=== PATIENT | female | born 1955 | race Caucasian/White ===

== ENCOUNTER 2019-08-08 19:27 | Emergency (ER) | payer MEDICARE, SELFPAY ==
--- NOTE | 2019-08-08 19:53 | PC.NURSE ---
EKG done at 1943 and shown to ER doctor
--- NOTE | 2019-08-08 19:59 | XRR_ITS ---
PROCEDURE INFORMATION: Exam: XR Chest, 1 View Exam date and time: 08/08/2019 8:12 PM Age: 63 years old Clinical indication: Patient HX: PT C/O chest pain today TECHNIQUE: Imaging protocol: XR of the chest Views: 1 view. COMPARISON: CR Chest 1 [place] [id number] 10/27/2018 5:32 PM FINDINGS: Lungs: Unremarkable. No consolidation. Probable fibrosis. Scattered unchanged calcified granulomas. Pleural space: Unremarkable. No pleural effusion. No pneumothorax. Heart/Mediastinum: Mild cardiomegaly. Bones/joints: No acute abnormality. Old right rib fractures are noted. Postoperative changes in the cervical spine are noted. XR/XR chest 1V portable [id number] IMPRESSION: No acute findings. Normal in
[2019-08-08 20:00] VITALS: BP 141/85; PULSE 73; RESP 22; TEMP 37.1; O2SAT 96; BMI 33.9
--- NOTE | 2019-08-08 20:00 | ECG_ITS ---
Measurements Intervals [place] Rate: 76 P: 59 SD: 174 QRS: 77 QRSD: 90 T: 52 QT: 353 QTc: 397 SINUS RHYTHM Compared to ECG 01/03/2019 12:13:13 No significant changes Electronically Signed On 08-09-2019 16:21:38 SUPERVISOR [employer] by Barrie Urbina M.D. [id number] f
[2019-08-08 20:27] LABS: Basophils % 0.5 %; Eosinophils # 0.3 10^3/uL (0.0-0.8); Eosinophils % 3.4 %; Hemoglobin 15.1 g/dL (11.5-15.3); Lymphocytes # 2.8 10^3/uL (0.8-4.8); Lymphocytes % 37.7 %; Mean Corpuscular HGB Conc 33.6 g/dL (30.0-36.0); Mean Corpuscular Hemoglobin 32.3 pg (28.0-34.0); Mean Corpuscular Volume 96.2 fL (81-99); Mean Platelet Volume 10.5 fL (7.4-10.4); Monocytes # 0.7 10^3/uL (0.2-0.9); Monocytes % 9.7 %; Neutrophils # 3.6 10^3/uL (1.8-7.7); Neutrophils % 48.3 %; Nucleated Red Blood Cells % 0 %; Platelet Count 335 10^3/cmm (130-400); Red Blood Count 4.68 10^6/uL (4.1-5.3); Red Cell Distribution Width 13.1 % (12.1-15.1); White Blood Count 7.4 10^3/uL (4.0-10.0)
[2019-08-08 20:40] LABS: D Dimer 1.59 ug/mIFEU (0-0.59)
[2019-08-08 20:43] LABS: Alanine Aminotransferase 53 U/L (0-33); Albumin Level 4.3 g/dL (3.5-5.2); Alkaline Phosphatase 112 IU/L (35-105); Anion Gap 17.8 (5-19); Aspartate Amino Transferase 31 U/L (0-32); Blood Urea Nitrogen 12 mg/dL (8-23); Calcium 9.8 mg/dL (8.5-10.5); Carbon Dioxide 26 mmol/L (22-29); Chloride 97 mmol/L (98-107); Globulin 2.8 g/dL (1.3-4.6); Glucose 266 mg/dL (74-106); Potassium 4.8 mmol/L (3.5-5.1); Sodium 136 mmol/L (136-145); Total Bilirubin 0.2 mg/dL (0.15-1.2); Total Protein 7.1 g/dL (6.6-8.7)
[2019-08-08 20:45] LABS: Troponin(5th) Baseline 11 ng/mL (0-10)
--- NOTE | 2019-08-08 20:52 | ED_ITS ---
HPI - Chest Pain General: Chief Complaint: Chest Pain Stated Complaint: CHEST PAIN, SHORT OF BREATH Time Seen by Provider: 08/08/19 20:45 History of Present Illness: HPI narrative: Patient was brought in by EMS for concerns of chest pain and some mild shortness of breath. Patient states that she had a sudden onset of chest discomfort and pain. Patient does have a history of cardiac disease. Patient states that her pain has improved once she was given nitro in route by EMS. Patient rates pain at 5 out of 10 at this time. Patient does have a headache though due to the hot nitro. Patient appears well. Patient appears in mild pain. Associated symptoms: Reports dyspnea Review of Systems General: Reports: 10 or more systems reviewed and unremarkable except in HPI and below Card: Reports: chest pain Resp: Reports: shortness of breath PFSH ED PFSH: Statuses (acute, chronic, etc) shown below reflect problem list status as previously entered and may not be historically accurate Social History Smoking and tobacco status: never smoked Physical Exam Const: COMMON NORMALS: no apparent distress and oriented x3 GENERAL APPEARANCE: cooperative HENMT: COMMON NORMALS: normocephalic, external ears normal, EAC's normal, TM's normal bilaterally and external nose normal HEAD & SCALP: normal to inspection and normocephalic FACE & SINUS: normal facial exam NOSE: exter nal nose normal GENERAL EAR: hearing not grossly impaired EXTERNAL EAR: Yes external ears normal EXTERNAL AUDITORY CANAL: EAC's normal TYMPANIC MEMBRANE: TM's normal bilaterally MOUTH: oral and palatal mucosa normal THROAT: posterior oropharynx normal Eye: COMMON NORMALS: PERRL and EOMs intact bilaterally PUPIL: Yes PERRL Neck/C-Spine: COMMON NORMALS: full ROM and no lymphadenopathy Lymph: LYMPHATIC: no lymphedema noted Chest: COMMONS NORMALS: inspection of chest normal CHEST: Yes tenderness xiphoid process Resp: COMMON NORMALS: normal respiratory effort and clear to auscultation bilaterally AUSCULTATION: clear to auscultation bilaterally Cardio: COMMON NORMALS: regular rate and regular rhythm RATE: regular rate RHYTHM: regular rhythm GI: COMMON NORMALS: normal to inspection, nondistended, normoactive bowel sounds PALPATION: Yes tender (mid epigastric) : COMMON NORMALS: Yes no CVA tenderness BLADDER/KIDNEY EXAM: Yes no CVA tenderness Back/Pelvis: COMMON NORMALS: no CVA tenderness and thoracic and lumbar spine normal to inspection Extremity: COMMON NORMALS: normal to inspection GENERAL: No edema Neuro: COMMON NORMALS: oriented x3, moves all extremities and no focal motor deficits Psych: COMMON NORMALS: mental status grossly normal and cooperative Skin: COMMON NORMALS: no rashes or lesions noted GENERAL SKIN EXAM: no rashes or lesions noted Course Vital Signs: Vital signs: Vital Signs Temperature 98.7 F 08/08/19 20:00 Pulse Rate 73 08/08/19 20:00 Respiratory Rate 22 H 08/08/19 20:00 Blood Pressure 141/85 08/08/19 20:00 Pulse Oximetry 96 08/08/19 20:00 MDM - Chest Pain MDM Narrative: Medical decision making narrative: Patient was brought in this evening by EMS for concerns of chest pain with some shortness of breath. Patient had improvement of symptoms on arrival to the ER and remarked that her pain did come from a 10 to a 5. Patient appeared well. Exam noted abdomen was slightly tender in the midepigastric region and tender in the sternum. Heart rate was regular. Skin was warm and dry. Lungs good good aeration throughout. No edema was noted in the extremities. Differential diagnosis included ACS, PE, esophagitis, reflux, gastritis, pancreatitis, anxiety. Laboratory values noted and slight elevation in the d-dimer at 1.5. No changes were noted in the troponin at the 2-hour dulce maria. EKG was normal sinus rhythm without any ectopy or ST elevation and no change. Remainder of laboratory values were insignificant. CT scan of the chest noted no pulmonary emboli. Chest x-ray noted no acute process. Patient pain improved slightly from 5-4 she was then medicated with a GI cocktail which relieved the remainder of her pain. Patient was also given a hydrocodone for complaints of a headache due to the nitro. Patient was recommended to follow-up with primary care with possibility of referral to cardiology for further evaluation, patient had recently seen her pen and pencil repairer in the last 6 to 8 months and had no concerns at that time. I did recommend a repeat follow-up with cardiology and evaluation as needed. Lab Data: Labs: Lab Results 08/08/19 08/08/19 08/08/19 Range/Units 20:00 20:00 20:00 WBC 7.4 (4.0-10.0) 10^3/ uL RBC 4.68 (4.1-5.3) 10^6/u L Hgb 15.1 (11.5-15.3) g/dL Hct 45.0 (37.0-47.0) % MCV 96.2 (81-99) fL MCH 32.3 (28.0-34.0) pg MCHC 33.6 (30.0-36.0) g/dL RDW 13.1 (12.1-15.1) % Plt Count 335 (130-400) 10^3/c mm MPV 10.5 H (7.4-10.4) fL Neut % (Auto) 48.3 % Lymph % (Auto) 37.7 % [place] % (Auto) 9.7 % Eos % (Auto) 3.4 % Baso % (Auto) 0.5 % Neut # (Auto) 3.6 (1.8-7.7) 10^3/u L Lymph # (Auto) 2.8 (0.8-4.8) 10^3/u L [place] # (Auto) 0.7 (0.2-0.9) 10^3/u L Eos # (Auto) 0.3 (0.0-0.8) 10^3/u L Baso # (Auto) 0.0 (0.0-0.1) 10^3/u L Nucleated RBC % (a uto) 0 % Nucleated RBCs # 0.0 /100WBC PT (10.5-13.3) SECO NDS INR (0.8-1.2) APTT (23.9-36.7) SECO NDS D-Dimer 1.59 H (0-0.59) ug/mIFE U Sodium 136 (136-145) mmol/L Potassium 4.8 (3.5-5.1) mmol/L Chloride 97 L (98-107) mmol/L Carbon Dioxide 26 (22-29) mmol/L Anion Gap 17.8 (5-19) BUN 12 (8-23) mg/dL Creatinine 0.9 (0.5-0.9) mg/dL GFR Calculation 63.0 L (90-130) mL/min Glucose 266 H (74-106) mg/dL Calcium 9.8 (8.5-10.5) mg/dL Total Bilirubin 0.2 (0.15-1.2) mg/dL AST 31 (0-32) U/L ALT 53 H (0-33) U/L Alkaline Phosphata se 112 H (35-105) IU/L Troponin T Baselin e (0-10) ng/mL Troponin T 120 Min bijal (0-10) ng/mL Delta Troponin T (0-10) ABS# Total Protein 7.1 (6.6-8.7) g/dL Albumin 4.3 (3.5-5.2) g/dL Globulin 2.8 (1.3-4.6) g/dL Urine Color (Yellow) Urine Appearance (CLEAR) Urine pH (5-7) Ur Specific Gravit y (1.005-1.030) Urine Protein (Negative) Urine Glucose (UA) (Normal) Urine Ketones (Negative) Urine Occult Blood (Negative) Urine Nitrate (Negative) Urine Bilirubin (NEGATIVE) Urine Urobilinogen (Negative) mg/dL Ur Leukocyte Yoko ase (Negative) Urine RBC (0-2) /hpf Urine WBC (0-5) /hpf Ur Squamous Epith Cells (0-5) Urine Bacteria (NONE) 08/08/19 08/08/19 08/08/19 Range/Units 20:00 20:00 22:15 WBC (4.0-10.0) 10^3/ uL RBC (4.1-5.3) 10^6/u L Hgb (11.5-15.3) g/dL Hct (37.0-47.0) % MCV (81-99) fL MCH (28.0-34.0) pg MCHC (30.0-36.0) g/dL RDW (12.1-15.1) % Plt Count (130-400) 10^3/c mm MPV (7.4-10.4) fL Neut % (Auto) % Lymph % (Auto) % [place] % (Auto) % Eos % (Auto) % Baso % (Auto) % Neut # (Auto) (1.8-7.7) 10^3/u L Lymph # (Auto) (0.8-4.8) 10^3/u L [place] # (Auto) (0.2-0.9) 10^3/u L Eos # (Auto) (0.0-0.8) 10^3/u L Baso # (Auto) (0.0-0.1) 10^3/u L Nucleated RBC % (a uto) % Nucleated RBCs # /100WBC PT 12.80 (10.5-13.3) SECO NDS INR 0.94 (0.8-1.2) APTT 29.8 (23.9-36.7) SECO NDS D-Dimer (0-0.59) ug/mIFE U Sodium (136-145) mmol/L Potassium (3.5-5.1) mmol/L Chloride (98-107) mmol/L Carbon Dioxide (22-29) mmol/L Anion Gap (5-19) BUN (8-23) mg/dL Creatinine (0.5-0.9) mg/dL GFR Calculation (90-130) mL/min Glucose (74-106) mg/dL Calcium (8.5-10.5) mg/dL Total Bilirubin (0.15-1.2) mg/dL AST (0-32) U/L ALT (0-33) U/L Alkaline Phosphata se (35-105) IU/L Troponin T Baselin e 11 H (0-10) ng/mL Troponin T 120 Min bijal 10.76 H (0-10) ng/mL Delta Troponin T -0.24 L (0-10) ABS# Total Protein (6.6-8.7) g/dL Albumin (3.5-5.2) g/dL Globulin (1.3-4.6) g/dL Urine Color (Yellow) Urine Appearance (CLEAR) Urine pH (5-7) Ur Specific Gravit y (1.005-1.030) Urine Protein (Negative) Urine Glucose (UA) (Normal) Urine Ketones (Negative) Urine Occult Blood (Negative) Urine Nitrate (Negative) Urine Bilirubin (NEGATIVE) Urine Urobilinogen (Negative) mg/dL Ur Leukocyte Yoko ase (Negative) Urine RBC (0-2) /hpf Urine WBC (0-5) /hpf Ur Squamous Epith Cells (0-5) Urine Bacteria (NONE) 08/08/19 Range/Units 22:40 WBC (4.0-10.0) 10^3/ uL RBC (4.1-5.3) 10^6/u L Hgb (11.5-15.3) g/dL Hct (37.0-47.0) % MCV (81-99) fL MCH (28.0-34.0) pg MCHC (30.0-36.0) g/dL RDW (12.1-15.1) % Plt Count (130-400) 10^3/c mm MPV (7.4-10.4) fL Neut % (Auto) % Lymph % (Auto) % [place] % (Auto) % Eos % (Auto) % Baso % (Auto) % Neut # (Auto) (1.8-7.7) 10^3/u L Lymph # (Auto) (0.8-4.8) 10^3/u L [place] # (Auto) (0.2-0.9) 10^3/u L Eos # (Auto) (0.0-0.8) 10^3/u L Baso # (Auto) (0.0-0.1) 10^3/u L Nucleated RBC % (a uto) % Nucleated RBCs # /100WBC PT (10.5-13.3) SECO NDS INR (0.8-1.2) APTT (23.9-36.7) SECO NDS D-Dimer (0-0.59) ug/mIFE U Sodium (136-145) mmol/L Potassium (3.5-5.1) mmol/L Chloride (98-107) mmol/L Carbon Dioxide (22-29) mmol/L Anion Gap (5-19) BUN (8-23) mg/dL Creatinine (0.5-0.9) mg/dL GFR Calculation (90-130) mL/min Glucose (74-106) mg/dL Calcium (8.5-10.5) mg/dL Total Bilirubin (0.15-1.2) mg/dL AST (0-32) U/L ALT (0-33) U/L Alkaline Phosphata se (35-105) IU/L Troponin T Baselin e (0-10) ng/mL Troponin T 120 Min bijal (0-10) ng/mL Delta Troponin T (0-10) ABS# Total Protein (6.6-8.7) g/dL Albumin (3.5-5.2) g/dL Globulin (1.3-4.6) g/dL Urine Color Yellow (Yellow) Urine Appearance Clear (CLEAR) Urine pH 5 (5-7) Ur Specific Gravit y 1.010 (1.005-1.030) Urine Protein Neg (Negative) Urine Glucose (UA) Trace H (Normal) Urine Ketones Negative (Negative) Urine Occult Blood Neg (Negative) Urine Nitrate Negative (Negative) Urine Bilirubin Neg (NEGATIVE) Urine Urobilinogen Norm (Negative) mg/dL Ur Leukocyte Yoko ase Negative (Negative) Urine RBC None (0-2) /hpf Urine WBC None (0-5) /hpf Ur Squamous Epith Cells 0-4 H (0-5) Urine Bacteria Trace (NONE) EKG Data^: EKG 1: Attestation: I personally reviewed and interpreted this EKG as follows: (2000, rate 76, no ectopy or ST elevation, no change from previous documented EKG) EKG 2: Attestation: I personally reviewed and interpreted this EKG as follows: (NSR, rate 70 bpm, no ectopy or ST elevation, no change from prior ekg, wjw) Discharge Plan Discharge Patient Disposition: Home, Self-Care Clinical Impression: Atypical chest pain, Abnormal laboratory test Acid reflux disease Qualifiers: Esophagitis presence: without esophagitis Qualified Code(s): K21.9 - Gastro- esophageal reflux disease without esophagitis Condition: Stable Discharge Orders: Discharge Order (Routine); Ordered 08/09/19 Ordered By: Sam Kelley Referrals: Carter Yusuf MD [Primary Care Provider] - Discharge Diet: Usual diet Discharge Activity: Resume usual activity Patient Instructions: Chest Pain (ED) Activity Restrictions/Additional Instructions: Home and rest Drink plenty of fluids Activity as tolerated Follow-up with primary care in three days Return to ER for high fever or worsening symptoms Coding Level of Care Code ED Hazardous Material Specialist for Chg Fwd Exam Problem Focused
--- NOTE | 2019-08-08 20:53 | CTR_ITS ---
PROCEDURE INFORMATION: Exam: CT Angiography Chest With Contrast Exam date and time: 08/08/2019 8:58 PM Age: 63 years old Clinical indication: On breathing; Patient HX: Chest pain and elevated d dimer today; Additional info: Elevated d dimer, chest pain TECHNIQUE: Imaging protocol: Computed tomographic angiography of the chest with intravenous contrast. 3D rendering: MIP and/or 3D reconstructed images were created by the technologist. Total DLP: 1224.77 mGy-cm Radiation optimization: All CT scans at this facility use at least one of these dose optimization techniques: automated exposure control; mA and/or kV adjustment per patient size (includes targeted exams where dose is matched to clinical indication); or iterative reconstruction. Contrast material: OMNIPAQUE 350; Contrast volume: 95 ml; Contrast route: RT AC IV; COMPARISON: CR (CHEST, ) 08/08/2019 8:02 PM FINDINGS: Pulmonary arteries: There is no pulmonary embolus. Aorta: Unremarkable. No aortic aneurysm. No aortic dissection. Lungs: Unremarkable. No consolidation. No masses. Pleural space: Unremarkable. No pneumothorax. No pleural effusion. Heart: Unremarkable. No cardiomegaly. No pericardial effusion. Mediastinum: A small hiatal hernia is present. Gallbladder and bile ducts: There has been a cholecystectomy. Lymph nodes: Unremarkable. No enlarged lymph nodes. Bones/joints: There are postoperative changes in the cervical spine. There are moderate degenerative changes in the spine. Soft tissues: Unremarkable. CT/CT angio chest PE protcl [id number] IMPRESSION: There is no pulmonary embolus. No acute abnormality. Radiation Dose CTDIVOL = (mGy): DLP = 1224.77 (mGy-cm)
[2019-08-08] MEDS: iohexol 350 mg/mL 100 mL Btl 95 ML IV (21:04)
[2019-08-08 21:18] LABS: INR 0.94 (0.8-1.2); Partial Thromboplastin Time 29.8 SECONDS (23.9-36.7)
--- NOTE | 2019-08-08 22:00 | ECG_ITS ---
Measurements Intervals [place] Rate: 70 P: 60 [place]: 178 QRS: 84 QRSD: 89 T: 60 QT: 369 QTc: 401 SINUS RHYTHM Compared to ECG 01/03/2019 12:13:13 No significant changes Electronically Signed On 08-09-2019 16:28:21 MUSICAL ENGINEER by Barrie Urbina M.D. [id number]
[2019-08-08 22:49] LABS: Blood Urine Neg (Negative); Glucose Urine UA Trace (Normal); Ketones Urine Negative (Negative); Nitrate Urine Negative (Negative); Protein Urine Neg (Negative); Urine Appearance Clear (CLEAR); Urine Color Yellow (Yellow); pH Urine 5 (5-7)
[2019-08-08 22:50] LABS: Bilirubin Urine Neg (NEGATIVE); Leukocyte Esterase Urine Negative (Negative); Urobilinogen Urine Norm (Negative)
[2019-08-08 22:53] LABS: Add Urine Culture? No; Bacteria Urine TRACE; Squamous Epithelial Cell Urine 0-4 (0-5)
[2019-08-08 22:57] LABS: Troponin 5 2HR 10.76 ng/mL (0-10)
[2019-08-08 23:03] LABS: Troponin 5 2HR Delta -0.24 ABS# (0-10)
[2019-08-08] MEDS: HYDROcodone-acetaminophen 5-325 mg Tablet 1 TAB PO (23:46)
[2019-08-09 00:24] VITALS: BP 157/92; PULSE 69; RESP 19; O2SAT 96
== END 2019-08-09 00:18 | disposition home or self-care (01) ==
PROVIDERS: Emergency Provider Nurse Practitioner Family; Family Provider Family Medicine; PCP Family Medicine
DX: R07.89 Other chest pain (principal); K21.9 Gastro-esophageal reflux disease without esophagitis; R79.9 Abnormal finding of blood chemistry, unspecified
CPT/HCPCS: 71045; 71275; 80053; 81001; 84484; 85025; 85378; 85610; 85730; 93005; 99283; Q9967

== ENCOUNTER 2019-08-12 15:25 | Outpatient (CLI) | payer MEDICARE, SELFPAY ==
--- NOTE | 2019-08-12 15:34 | XR_ITS ---
WS: [id number] LATERAL CERVICAL SPINE: 3 view. Lateral radiographs are performed in upright neutral, flexion and extension to the patient's toleranc e. HISTORY: CERVICALGIA COMPARISON: 01/29/2007 Prior anterior cervical fusion from C5 to C7. No change in position of the hardware. No lucency aroun d the screws. Complete fusion across the C5-6 and C6-7 interbody spacers. Straightening of the normal lordosis with normal alignment on neutral imaging. During flexion less th an 2 mm anterolisthesis of C2 and C3. During extension 1.4 mm retrolisthesis of C3. XR/XR cervical spine fl/ex [id number] IMPRESSION: 1. Stable anterior cervical fusion with interbody fusions at C5-6 and C6-7. 2. Mild flexion extension instability of C3.
== END 2019-08-12 15:26 | disposition home or self-care (01) ==
LOC: RADWPI 15:32
PROVIDERS: Family Provider Family Medicine; PCP Family Medicine; Visit Provider Nurse Practitioner
DX: M54.2 Cervicalgia (principal); Z98.1 Arthrodesis status
CPT/HCPCS: 72040

== ENCOUNTER 2019-08-27 23:28 | Emergency (ER) | payer MEDICARE, SELFPAY ==
[2019-08-27 23:52] VITALS: BP 142/86; PULSE 79; RESP 18; TEMP 36.9; O2SAT 99; BMI 32.1
--- NOTE | 2019-08-28 00:05 | XR_ITS ---
WS: [id number] XR ankle LT min 3V* [id number] REASON FOR EXAM: injury FINDINGS: The ankle mortise is normal. The tibia, fibula, talus show no fractures. The posterior shelf of the tibia was normal. There is soft tissue swelling surrounding the ankle. XR/XR ankle LT min 3V* [id number] IMPRESSION: Soft tissue swelling of the ankle. No fractures.
--- NOTE | 2019-08-28 00:05 | XR_ITS ---
WS: [id number] XR foot LT min 3V* [id number] REASON FOR EXAM: injury FINDINGS: This study shows a fracture of the proximal one third of the fifth metatarsal no gross disp lacement is seen. The remaining phalanges, metatarsals, tarsals were normal. The calcaneus was intact no fractures are seen. XR/XR foot LT min 3V* [id number] IMPRESSION: Fracture of the proximal one third of the fifth metatarsal.
--- NOTE | 2019-08-28 00:06 | W.ED.FALL ---
HPI - Fall General: Chief Complaint: Fall Stated Complaint: l foot pain Time Seen by Provider: 08/28/19 00:03 Source: patient Mode of arrival: ambulatory Limitations: no limitations History of Present Illness: HPI Narrative: Patient reports tripping and falling to her left knee and in the event twisting her left foot. Patient reports pain in her foot. Patient also has an abrasion to her left knee. Review of Systems General: Reports: 10 or more systems reviewed and unremarkable except in HPI and below Musc: Reports: extremity pain (left foot) Skin/Breast: Reports: other (abrasion) PFS ED PFSH: Social History Smoking and tobacco status: never smoked Physical Exam Const: COMMON NORMALS: no apparent distress and oriented x3 GENERAL APPEARANCE: cooperative HENMT: COMMON NORMALS: normocephalic, external ears normal, EAC's normal, TM's normal bilaterally and external nose normal HEAD & SCALP: normal to inspection and normocephalic FACE & SINUS: normal facial exam NOSE: external nose normal GENERAL EAR: hearing not grossly impaired EXTERNAL EAR: Yes external ears normal EXTERNAL AUDITORY CANAL: EAC's normal TYMPANIC MEMBRANE: TM's normal bilaterally MOUTH: oral and palatal mucosa normal THROAT: posterior oropharynx normal Eye: COMMON NORMALS: PERRL and EOMs intact bilaterally PUPIL: Yes PERRL Neck/C-Spine: COMMON NORMALS: full ROM and no lymphadenopathy Lymph: LYMPHATIC: no lymphedema noted Chest: COMMONS NORMALS: inspection of chest normal and palpation of chest normal Resp: COMMON NORMALS: normal respiratory effort and clear to auscultation bilaterally AUSCULTATION: clear to auscultation bilaterally Cardio: COMMON NORMALS: regular rate and regular rhythm RATE: regular rate RHYTHM: regular rhythm GI: COMMON NORMALS: normal to inspection, nondistended, normoactive bowel sounds and non-tender : COMMON NORMALS: Yes no CVA tenderness BLADDER/KIDNEY EXAM: Yes no CVA tenderness Back/Pelvis: COMMON NORMALS: no CVA tenderness and thoracic and lumbar spine normal to inspection Extremity: NARRATIVE EXTREMITY EXAM: Left foot lateral tenderness on palpation. Good pulses. Some tenderness is also noted to the left lateral ankle. No obvious deformity or dislocation. GENERAL: Yes edema Neuro: COMMON NORMALS: oriented x3, moves all extremities and no focal motor deficits Psych: COMMON NORMALS: mental status grossly normal and cooperative Skin: COMMON NORMALS: no rashes or lesions noted GENERAL SKIN EXAM: no rashes or lesions noted Course Vital Signs: Vital signs: Vital Signs Temperature 98.4 F 08/27/19 23:52 Pulse Rate 79 08/27/19 23:52 Respiratory Rate 18 08/27/19 23:52 Blood Pressure 142/86 08/27/19 23:52 Pulse Oximetry 99 08/27/19 23:52 MDM - Fall MDM Narrative: Medical decision making narrative: Patient comes in here for evaluation of injury to the left foot and ankle. Patient reported a trip and fall. On exam we note an abrasion to the left knee. Patient also has tenderness to the left foot and lateral ankle. Some's mild swelling is noted to the foot and ankle. Differential diagnosis includes fracture, sprain, contusion. X-rays of the foot and ankle noted 5th metatarsal fracture that is nondisplaced or open. Reviewed exam with patient recommended treatment with a orthopedic shoe and activity as tolerated with recommendations for follow-up with orthopedics or ramp service man for further treatment. Patient reported understanding and agreed to plan. Discharge Plan Discharge Patient Disposition: Home, Self-Care Clinical Impression: Fall Qualifiers: Encounter type: initial encounter Qualified Code(s): W19.XXXA - Unspecified fall, initial encounter Foot fracture, left Qualifiers: Encounter type: initial encounter Fracture type: closed Qualified Code(s): S92.902A - Unspecified fracture of left foot, initial encounter for closed fracture Condition: Stable Prescriptions: New hydrocodone-acetaminophen 5-325 mg tablet 1 tab PO Q6H PRN (Reason: pain) Qty: 10 RF: 0 No Action No Known Home Medications RF: 0 Discharge Orders: Discharge Order (Routine); Ordered 08/28/19 Ordered By: Sam Kelley Referrals: Carter Yusuf MD [Primary Care Provider] - Discharge Diet: Usual diet Discharge Activity: Increase activity as tolerated Patient Instructions: Foot Fracture in Adults (ED) Activity Restrictions/Additional Instructions: Wear good supportive shoe or orthopedic shoe Activity as tolerated Drink plenty of water with medication Follow-up with orthopedics for further treatment Return to ER as needed Coding Level of Care Code ED Evp Chief Exploration Officer for Jaret Fwd Exam Comprehensive
[2019-08-28] MEDS: HYDROcodone-acetaminophen 5-325 mg Tablet 1 TAB PO (01:15)
[2019-08-28 02:00] VITALS: BP 132/75; PULSE 96; RESP 18; TEMP 36.9; O2SAT 98
--- NOTE | 2019-08-28 15:21 | DCPLANNER ---
tire shop manager had message to schedule a follow up appointment for patient with ortho. tire shop manager called ortho, spoke with Pat, gave clinic patients information. tire shop manager was told that patient had an appointment scheduled for 08.28.19 and that patient did attend the appointment.
== END 2019-08-28 02:16 | disposition home or self-care (01) ==
PROVIDERS: Emergency Provider Nurse Practitioner Family; Family Provider Family Medicine; PCP Family Medicine
DX: S92.352A Displaced fracture of fifth metatarsal bone, left foot, initial encounter for closed fracture (principal); S80.212A Abrasion, left knee, initial encounter; W01.0XXA Fall on same level from slipping, tripping and stumbling without subsequent striking against object, initial encounter
CPT/HCPCS: 73610; 73630; 99281; 99283

== ENCOUNTER 2019-09-01 08:11 | Day surgery (SDC) | payer MEDICARE, SELFPAY ==
[2019-08-29 13:07] VITALS: BMI 32.1
[2019-09-01] VITALS (10 sets, daily range): BP systolic 132–181; BP diastolic 72–86; PULSE 84–93; RESP 12–20; TEMP 36.6–36.8; O2SAT 93–99
--- NOTE | 2019-09-01 | SCC_ITS ---
Procedure Done: Open reduction internal fixation left fifth metatarsal 50.6 seconds of fluoroscopic guidance, for a cumulative dose of 0.64 mGy, was provided to Dr. Kendrick by the radiology department. C-arm images of the LEFT foot were saved for the patient's permanent record. [facility]
--- NOTE | 2019-09-01 | XR_ITS ---
WS: [id number] Left foot, 2 views in the OR with C-arm, 09/01/2019 Clinical Data: OR PICS Comparison: Left foot x-ray, 08/28/2019 Findings: A radiopaque orthopedic screw has been inserted into the proximal portion of the left fifth metatarsa l to reduce a proximal fracture. XR/XR foot LT 2V [id number] Impression: Internal fixation of fracture of base of left fifth metatarsal.
[2019-09-01] MEDS: sodium chloride 0.9% 1,000 ML 30 ML IV (08:52)
--- NOTE | 2019-09-01 09:03 | ANES.PREANE2 ---
Pre-Anesthetic Assessment Pre-Anesthetic Assessment: Height/Weight: Height 1.68 m Weight 90.265 kg Temp Pulse Resp BP Pulse Ox 98.3 F 88 20 H 141/86 93 09/01/19 08:39 09/01/19 08:39 09/01/19 08:39 09/01/19 08:39 09/01/19 08:39 Preop Diagnosis: Fracture left fifth metatarsal Proposed Procedure: Operation Date: 09/01/19 10:50 Proposed Procedures p ORIF left 5th metatarsal 59702 S92.352A(Left) - Lakhwinder Kendrick MD Last intake: Intake Last Liquid Date 08/31/19 Last Liquid Time 19:00 Exam: Pre-Anes Outpt Exam: alert, oriented x 3, clear to auscultation bilaterally and regular rate & rhythm Airway: Submandibular: WNL Cervical ROM: WNL MP: 1 Dentition: Partials CV/HEM: CV/HEM: HTN Comments: rx'd 10y stress test '10 GI: GI: GERD Comments: well controlled Metabolic: Metabolic: DM and Thyroid Comments: rx'd x 15y, normally 100-150 replacement x 20y, increased 8 months ago Neuropsych: Neuropsych: 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
[2019-09-01 10:21] LABS: Glucose Point of Care 202 mg/dL (70-110)
--- NOTE | 2019-09-01 12:16 | W.PM.OPSUD ---
Surgery/Procedure H&P Update DATE OF PROCEDURE: September 01, 2019 DATE H&P PERFORMED: 08/28/19 H&P UPDATE INFORMATION: I have reviewed H&P completed within last 30 days and No changes to prior documentation PREOP DIAGNOSIS: Fracture left fifth metatarsal PRIMARY INDICATION FOR PROCEDURE: Lozoya fracture left foot. Patient chose surgery to allow more rapid healing. PLANNED PROCEDURE: Operation Date: 09/01/19 10:50 Proposed Procedures p ORIF left 5th metatarsal 57203 S92.352A(Left) - Lakhwinder Kendrick MD
[2019-09-01] MEDS: midazolam 1 mg/mL INJ 2 mL 2 MG IVP (12:17)
--- NOTE | 2019-09-01 13:29 | PM.OP ---
Operative Report Date of procedure: September 01, 2019 Pre-op Diagnosis: Fracture left fifth metatarsal Post-op diagnosis: same Post-op Findings: same Procedure Done: Open reduction internal fixation left fifth metatarsal Implants: 4.0 x 50 mm Alton Fixos screw Pathology: none sent Anesthesia: General Estimated blood loss (mL): 5 Complications: None Findings: The patient a transverse nondisplaced fracture of the proximal diaphysis of the left fifth metatarsal Brief History: Patient sustained a fracture of the left fifth metatarsal base. Options were discussed with the patient. The propensity for healing problems with this fracture was noted. The patient states she has a in the hospital and her social situation would make expedited healing preferable. She chose open reduction internal fixation. Procedure: The patient was taken to the operating room and given 2 g of Ancef. She was given a general anesthesia and a timeout was performed. The left lower extremity was prepped and draped with the left foot hanging over the bed under the visualization of fluoroscopy a guidepin was driven from the tip of the fifth metatarsal down the diaphysis of the bone spanning the fracture. Once adequate this and the pin was identified a small roxann was made the proximal skin and dissection carried down to the fifth metatarsal base. The cannulated reamer and the 50 mm x 4.0 mm groove was placed with excellent purchase. Intraoperative imaging showed satisfactory position of the hardware. The wound was closed with Xeroflo gauze Telfa 4 x 4's web roll and a compressive Emil wrap. The patient was extubated taken recovery in stable condition.
[2019-09-01] MEDS: ondansetron 2 mg/ML SDV 2 mL 4 MG IVP (14:04)
--- NOTE | 2019-09-01 15:34 | SUR.PHASEII ---
1500: [facility] IS HAVING A PRESCRIPTION FOR CRUTCHED SIGNED BY DR BARNES AND SENT TO HOME FOR PATIENT TO DRIVER SALES AFTER DISCHARGE.
== END 2019-09-01 16:40 | disposition home or self-care (01) ==
PROVIDERS: Family Provider Family Medicine; PCP Family Medicine; Visit Provider Orthopaedic Surgery
PROC: (CPT 28485; principal; 2019-09-01 10:50)
DX: S92.352A Displaced fracture of fifth metatarsal bone, left foot, initial encounter for closed fracture (principal); X50.1XXA Overexertion from prolonged static or awkward postures, initial encounter; Z79.82 Long term (current) use of aspirin; I10 Essential (primary) hypertension; K21.9 Gastro-esophageal reflux disease without esophagitis; E11.9 Type 2 diabetes mellitus without complications; Z79.4 Long term (current) use of insulin
CPT/HCPCS: 28485; 12345; 36416; 73620; 76000; 82962; 96374; C1713; J0330; J0690; J1580; J1885; J2001; J2250; J2405; J2704; J3010; J3490; J3535; J7030

== ENCOUNTER → 2019-09-30 13:28 | Outpatient (BNVA) | payer MEDICARE, SELFPAY | PROVIDERS: Family Provider Family Medicine; PCP Family Medicine; Visit Provider Orthopaedic Surgery | DX: Z48.89 Encounter for other specified surgical aftercare (principal); S92.352A Displaced fracture of fifth metatarsal bone, left foot, initial encounter for closed fracture; X58.XXXA Exposure to other specified factors, initial encounter | CPT/HCPCS: 73630 ==

== ENCOUNTER → 2019-11-18 15:38 | Outpatient (BNVA) | payer MEDICARE, SELFPAY | PROVIDERS: Family Provider Family Medicine; PCP Family Medicine; Visit Provider Orthopaedic Surgery | DX: Z48.89 Encounter for other specified surgical aftercare (principal); M85.872 Other specified disorders of bone density and structure, left ankle and foot | CPT/HCPCS: 73630 ==

== ENCOUNTER 2019-12-09 20:00 | Outpatient (CLI) | payer MEDICARE, OTHER, SELFPAY | END 2019-12-09 20:01 | disposition home or self-care (01) | LOC: SLEEP 12-10 10:10 | PROVIDERS: Family Provider Family Medicine; PCP Family Medicine; Visit Provider Anesthesiology Pain Medicine | DX: G47.10 Hypersomnia, unspecified (principal) | CPT/HCPCS: 95810 ==

== ENCOUNTER → 2019-12-16 15:34 | Outpatient (BNVA) | payer MEDICARE, OTHER, SELFPAY | PROVIDERS: Family Provider Family Medicine; PCP Family Medicine; Visit Provider Orthopaedic Surgery | DX: Z48.89 Encounter for other specified surgical aftercare (principal); S92.352A Displaced fracture of fifth metatarsal bone, left foot, initial encounter for closed fracture; X58.XXXA Exposure to other specified factors, initial encounter | CPT/HCPCS: 73630 ==

== ENCOUNTER → 2020-01-13 13:35 | Outpatient (BNVA) | payer MEDICARE, OTHER, SELFPAY | PROVIDERS: Family Provider Family Medicine; PCP Family Medicine; Visit Provider Orthopaedic Surgery | DX: S92.352A Displaced fracture of fifth metatarsal bone, left foot, initial encounter for closed fracture (principal); Z48.89 Encounter for other specified surgical aftercare; X58.XXXA Exposure to other specified factors, initial encounter | CPT/HCPCS: 73630 ==

== ENCOUNTER 2020-02-26 11:41 | Observation (INO) | payer MEDICARE, OTHER, SELFPAY ==
[2020-02-26] VITALS (22 sets, daily range): BP systolic 127–165; BP diastolic 60–92; PULSE 72–110; RESP 12–23; TEMP 36.6–37.2; O2SAT 93–100; BMI 30.7
--- NOTE | 2020-02-26 11:53 | XR_ITS ---
WS: [id number] EXAM: LEFT ANKLE: 3 VIEWS DATE OF EXAMINATION: 02/26/2020, 1212 hours COMPARISON: Left ankle examination from 08/28/2019 HISTORY: Patient is 64 years old with foot and ankle pain. Follow-up fracture. FINDINGS: Bone density is normal in appearance. Ankle mortise is symmetrical. No acute abnormality involving th e ankle is seen. Some minimal soft tissue prominence around the medial hindfoot region. Internal fixa tion of a fifth metatarsal Lozoya fracture with signs of healing again seen. Please see left foot repo rt exam from the same date. XR/XR ankle LT min 3V* [id number] IMPRESSION: No acute abnormality involving the ankle. Slight soft tissue swelling on the an terior medial hindfoot region. Progressive healing of the fifth metatarsal Lozoya fracture.
--- NOTE | 2020-02-26 11:53 | XR_ITS ---
WS: [id number] RIGHT KNEE: 3 VIEW(S) TECHNIQUE: AP, oblique(s) and lateral. HISTORY: Fall/injury COMPARISON: 03/14/2017 No fracture or dislocation. No joint space narrowing or osteophytes. Small suprapatellar joint effusion. Mild narrowing of the medial compartment. XR/XR knee RT 3V* [id number] IMPRESSION: 1. No fracture. 2. Small suprapatellar joint effusion.
--- NOTE | 2020-02-26 11:53 | XR_ITS ---
WS: [id number] EXAM: LEFT FOOT: 3 VIEWS DATE OF EXAMINATION: 02/26/2020, 1215 hours COMPARISON: Left foot examination from 01/13/2020 HISTORY: 64 years old with follow-up fracture. FINDINGS: Bone density is normal in appearance. Cristo screw fixation for a Lozoya fracture involving the fifth metatarsal bone appears in stable position. Progressive healing across the fracture plane has occurr ed in the interim. No hardware complication. Slight arthritis first metatarsal phalangeal joint and i nterphalangeal joint of the great toe. No soft tissue abnormality noted. XR/XR foot LT min 3V* [id number] IMPRESSION: Progressive healing of the internally fixed left foot fifth metatarsal Lozoya fr acture without hardware complicate or bony malalignment.
--- NOTE | 2020-02-26 11:54 | CT_ITS ---
WS: [id number] CT ABDOMEN AND PELVIS WITH CONTRAST HISTORY: Abdominal pain TECHNIQUE: Imaging performed of the abdomen and pelvis with IV contrast. Single phase imaging of the abdomen. Coronal and sagittal reformats are submitted. All CT scans at [facility] use at least one of these dose optimization techniques: automated exposure control; mA and/or kV adjustment per patient size (includes targeted exams where dose is matched to clinical indication); or iterativ e reconstruction. IV CONTRAST: Omnipaque 300; 95 mL IV. Oral contrast: No DLP: 1427.33 mGy.cm COMPARISON: 03/14/2017 Lower thorax: Lung bases are clear. Heart is normal size. No hiatal hernia. Liver/biliary system: Liver is slightly enlarged. The lateral LEFT lobe of liver is of decreased atte nuation sharp demarcation as compared to the remaining liver. This is thought to be related to prior surgery with phase of enhancement or abnormal blood supply or drainage. Probably not related to the t rauma. There is no adjacent inflammation or fluid. Hepatic steatosis and sparing along the falciform ligament. Gallbladder: Status post cholecystectomy. Pancreas: Normal. Spleen: Normal. Adrenal glands: Normal. Right kidney: Mild perinephric stranding. There is no obstruction. No solid mass. Left kidney: Mild perinephric stranding with no solid mass or obstruction. Aorta: Mild atherosclerosis with no aneurysm. Lymphadenopathy: None. Free fluid: None. GI tract: The appendix is not identified. No inflammatory changes or obstruction. Abdominal wall: Postsurgical changes along the anterior abdominal wall. No recurrent hernia. Pelvis: Distended urinary bladder. Bladder distends length of 17 cm. No intraluminal filling defect. Prior hysterectomy. Bones: Posterior lumbar fusion from L3 to L5. Bilateral rib fractures are present posteriorly. These fractures are not displaced and probably remote although there is not a lot of calcification surround ing the fractures. CT/CT abdomen pelvis w con* [id number] IMPRESSION: 1. No acute abdominal or pelvic abnormalities are identified. 2. Prior cholecystectomy. 3. Decreased attenuation with sharp demarcation in the lateral LEFT lobe of th e liver. Probably related to attenuation differences and phase of enhancement a nd venous drainage. Probably not related to the trauma. The proximal LEFT johnny l vein appears smaller caliber. 4. No ascites. 5. Markedly distended urinary bladder.
--- NOTE | 2020-02-26 11:54 | CT_ITS ---
WS: [id number] CT HEAD NONCONTRAST HISTORY: FALL/INJURY TECHNIQUE: Contiguous axial imaging performed through the brain in 2.5 mm imaging. Bone and soft tiss ue windows. Sagittal and coronal reformats reviewed. All CT scans at [facility] use at ast one of these dose optimization techniques: automated exposure control; mA and/or kV adjustment pe r patient size (includes targeted exams where dose is matched to clinical indication); or iterative r econstruction. DLP: 1591.53 mGy.cm COMPARISON: 03/08/2019 No acute intracranial hemorrhage, midline shift or mass effect. Mild atrophy and chronic ischemic disease. No midline shift. Ventricles: Normal size with no hydrocephalus. There are several small foci of air at the skull base of uncertain etiology. No skull base fracture i s identified. Paranasal sinuses: As visualized are clear. Mastoid air cells: Well pneumatized. Calvarium and scalp: Skull is intact with no soft tissue edema or swelling. CT/CT head wo con* [id number] IMPRESSION: 1. No acute intracranial hemorrhage. 2. There are several small side of air near the skull base in the dorsum sella e of uncertain etiology. No skull base fracture is identified.
--- NOTE | 2020-02-26 11:54 | XR_ITS ---
WS: [id number] PORTABLE CHEST HISTORY: FALL/INJURY COMPARISON: 08/08/2019 Elevated RIGHT hemidiaphragm. Lungs are clear and well expanded. No pleural effusion or pneumothorax. Cardiac size: Normal. Mediastinum/Aorta: Normal mediastinum. Healed rib fractures in the posterior RIGHT thorax. Additional age-indeterminate fractures in the lat eral LEFT thorax. XR/XR chest 1V portable [id number] IMPRESSION: 1. No acute cardio vascularity findings. 2. Bilateral rib fractures appear remote. Indeterminate fractures on the LEFT.
[2020-02-26] MEDS: ondansetron 2 mg/ML SDV 2 mL 4 MG IVP (12:08)
[2020-02-26] MEDS: sodium chloride 0.9% 1,000 ML 100 ML IV (12:08)
[2020-02-26 12:21] LABS: Basophils % 0.5 %; Eosinophils # 0.3 10^3/uL (0.0-0.8); Eosinophils % 3.2 %; Hematocrit 42.2 % (37.0-47.0); Hemoglobin 13.2 g/dL (11.5-15.3); Lymphocytes # 2.7 10^3/uL (0.8-4.8); Mean Corpuscular HGB Conc 31.3 g/dL (30.0-36.0); Mean Corpuscular Hemoglobin 29.7 pg (28.0-34.0); Mean Platelet Volume 9.6 fL (7.4-10.4); Monocytes # 0.7 10^3/uL (0.2-0.9); Monocytes % 9.1 %; Neutrophils # 4.26 10^3/uL (1.8-7.7); Nucleated Red Blood Cells % 0 %; Platelet Count 247 10^3/cmm (130-400); Red Blood Count 4.44 10^6/uL (4.1-5.3); Red Cell Distribution Width 12.8 % (12.1-15.1)
[2020-02-26 12:42] LABS: ABG PCO2 53.8 mmHg (35-45); Arterial Blood Gas Hematocrit 40.7 % (37-47); Base Excess ABG -0.8 mmol/L (-2.0-2.0); Blood Gas Allen Test Pos; Blood Gas Operator Identificat CAK; Blood Gas Sample Site Radial, left; Blood Gas Sample Type Arterial; HCO3 ABG 26.5 mmol/L (22-26); Oxygen Device ROOM AIR; PO2 ABG 65.7 mmHg (80.0-100.0)
[2020-02-26 12:43] LABS: Alanine Aminotransferase 57 U/L (0-33); Alkaline Phosphatase 102 IU/L (35-105); Anion Gap 14.1 (5-19); Aspartate Amino Transferase 42 U/L (0-32); Blood Urea Nitrogen 12 mg/dL (8-23); Calcium 9.4 mg/dL (8.5-10.5); Carbon Dioxide 25 mmol/L (22-29); Chloride 100 mmol/L (98-107); Glucose 255 mg/dL (65-115); Lipase 39 U/L (13-60); Osmolality Calculated 285 mOsm/kg (285-295); Potassium 4.1 mmol/L (3.5-5.1); Sodium 135 mmol/L (136-145); Total Bilirubin 0.2 mg/dL (0.15-1.2)
[2020-02-26] MEDS: naloxone 0.4 mg/ml SDV IVP (13:21)
--- NOTE | 2020-02-26 13:54 | W.ED.FALL ---
HPI - Fall General: Chief Complaint: Fall Stated Complaint: FALL/ ABDOMINAL PAIN/ FOOT PAIN Time Seen by Provider: 02/26/20 11:44 Source: patient and EMS Mode of arrival: EMS Limitations: altered mental status History of Present Illness: HPI Narrative: Kaylee is a 64-year-old female who comes in with report of injury. Patient states she got home from a dental appointment today and tripped and fell causing injury to her left foot, left ankle and right knee. She also states she hit her abdomen. She is uncertain if she was knocked unconscious or even hit her head. She denies any neck pain or chest pain. Patient states that she had to be driven back to her home from the dentist office. She does admit to taking hydrocodone this morning but not any more so than she is prescribed. Patient has some slurred speech but she was numb on the left side of her jaw for the dental work. History is limited as the patient is very somnolent, she has a GCS of 14 at this time. Review of Systems General: Reports: Other (ROS limited other than as noted in HPI due to patient's somnolence.) PFSH ED PFSH: Medical History CVA (cerebral vascular accident) History of anemia History of anxiety History of aphasia History of bipolar disorder History of depression History of GI bleed History of hypothyroidism History of posttraumatic stress disorder (PTSD) Hx of kidney disease Hx of primary hypertension Hx of type 2 diabetes mellitus TIA (transient ischemic attack) Surgical History History of back surgery Hx of appendectomy Hx of cholecystectomy Hx of hysterectomy Hx of neck surgery Social History Smoking and tobacco status: never smoked Physical Exam Const: COMMON NORMALS: no acute distress, patient oriented x3, no limitations, healthy appearing and well nourished GENERAL APPEARANCE: cooperative, well kempt, well developed and lethargic ORIENTATION/CONSCIOUSNESS: Yes lethargic HENMT: COMMON NORMALS: normocephalic, atraumatic, external ears normal, EAC's normal and Normal external nose present HEAD & SCALP: normal to inspection, normocephalic and atraumatic FACE & SINUS: normal facial exam and face symmetric NOSE: Normal external nose present and Normal nares present EXTERNAL EAR: Yes external ears normal EXTERNAL AUDITORY CANAL: EAC's normal MOUTH: Normal oral and palatal mucosa present, lip normal and tongue normal Eye: COMMON NORMALS: Equal, round and reactive pupils present and conjunctivae normal GENERAL EYE: appearance normal, both eyes and all related structures ALIGNMENT: Yes alignment normal PERIORBITAL: periorbital findings normal EYELID: eyelids normal CONJUNCTIVA: Yes conjunctivae normal SCLERA: sclerae normal PUPIL: Yes Equal, round and reactive pupils present Neck/C-Spine: COMMON NORMALS: full ROM, no lymphadenopathy, supple, no meningeal signs and no JVD GENERAL: Yes normal visual inspection and Yes trachea midline Chest: COMMONS NORMALS: normal inspection of the chest and normal palpation of entire chest wall Resp: COMMON NORMALS: normal respiratory effort, No retractions, No use of accessory muscles and clear to auscultation bilaterally EFFORT & INSPECTION: Yes able to speak in complete sentences and Yes symmetric chest movement AUSCULTATION: clear to auscultation bilaterally, no crackles, no rales, no rhonchi and no wheezes Cardio: COMMON NORMALS: no JVD, regular rate, regular rhythm, S1 normal heart sound present and S2 normal heart sound present RATE: regular rate RHYTHM: regular rhythm HEART SOUNDS: S1 normal heart sound present, S2 normal heart sound present, no click, no gallops, no murmurs, no rubs and abnormal split S2 GI: COMMON NORMALS: Soft to palpation and No hepatosplenomegaly present PALPATION: Yes Soft to palpation, Yes Tenderness to palpation present (GI) (Mild diffusely), No Guarding due to palpation present (GI), No Rigid due to palpation, Yes No hepatosplenomegaly present, No Hernia present, No Palpable mass present and No Pulsatile mass present : COMMON NORMALS: Yes no CVA tenderness BLADDER/KIDNEY EXAM: Yes no CVA tenderness EXTERNAL FEMALE EXAM: No Hernia present Back/Pelvis: COMMON NORMALS: no CVA tenderness, thoracic and lumbar spine normal to inspection, no thoracic nor lumbar tenderness and thoraco-lumbar ROM normal Extremity: COMMON NORMALS: full ROM, capillary refill normal, no joint enlargement, no clubbing, cyanosis or edema and no calf tenderness NARRATIVE EXTREMITY EXAM: Patient has minimal pain on palpation of the left foot and ankle and right knee. No gross deformities noted all extremities neurovascular intact. Neuro: COMMON NORMALS: patient oriented x3, CN's II-XII intact bilaterally, moves all extremities, no focal motor deficits and no sensory deficits noted SENSORIUM/ORIENTATION: Yes lethargic MENINGEAL SIGNS: Yes no meningeal signs SPEECH: speech normal Psych: COMMON NORMALS: mental status grossly normal, Normal thought process present, cooperative, normal affect, speech normal and activity/motor behavior normal APPEARANCE: Yes well kempt SPEECH: Yes normal speech THOUGHT PROCESS: Normal thought process present Skin: COMMON NORMALS: no rashes or lesions noted, turgor normal, no jaundice, no petechiae and no mottling GENERAL SKIN EXAM: no rashes or lesions noted and turgor normal Course Vital Signs: Vital signs: Vital Signs Temperature 97.8 F 02/26/20 11:48 Pulse Rate 75 02/26/20 16:17 Respiratory Rate 19 H 02/26/20 16:17 Blood Pressure 132/69 02/26/20 16:17 Pulse Oximetry 100 02/26/20 16:17 MDM - Fall MDM Narrative: Medical decision making narrative: Kaylee is a nice 64-year-old female who comes in with altered mental status after a fall. CT findings of the head were normal except for the air noted at the skull base. We discussed with Dr. Tapia she felt this could be from the patient's dental work. She states it is a nonspecific finding that they see often and no cause can be determined. Patient's CT the abdomen she also felt was just a contrast bolus issue and no further work-up was needed. The patient has both narcotics and benzodiazepines at home prescribed. I think she took a combination of diazepam and hydrocodone to make her so somnolent. On BiPAP she remains acidotic with a pH of 7.3-7.31 but she maintains her GCS of 14. Case was discussed in detail with Dr. Gordon and he is gracious enough to admit her to the ICU. We will continue watch her clinically to see if her breathing improves. If she declines at all we can intubate but at this time she is maintaining a steady GCS. Lab Data: Attestation: I reviewed the patient's lab results. Labs: Lab Results 02/26/20 02/26/20 02/26/20 Range/Units 12:06 12:06 12:31 WBC 8.0 (4.0-10.0) 10^3/ uL RBC 4.44 (4.1-5.3) 10^6/u L Hgb 13.2 (11.5-15.3) g/dL Hct 42.2 (37.0-47.0) % MCV 95.0 (81-99) fL MCH 29.7 (28.0-34.0) pg MCHC 31.3 (30.0-36.0) g/dL RDW 12.8 (12.1-15.1) % Plt Count 247 (130-400) 10^3/c mm MPV 9.6 (7.4-10.4) fL Neut % (Auto) 53.0 % Lymph % (Auto) 34.0 % [place] % (Auto) 9.1 % Eos % (Auto) 3.2 % Baso % (Auto) 0.5 % Neut # (Auto) 4.26 (1.8-7.7) 10^3/u L Lymph # (Auto) 2.7 (0.8-4.8) 10^3/u L [place] # (Auto) 0.7 (0.2-0.9) 10^3/u L Eos # (Auto) 0.3 (0.0-0.8) 10^3/u L Baso # (Auto) 0.0 (0.0-0.1) 10^3/u L Nucleated RBC % (a uto) 0 % Nucleated RBCs # 0.0 /100WBC Specimen Type Arterial Sample Site Radial, left ABG pH 7.30 L (7.35-7.45) ABG pCO2 53.8 H (35-45) mmHg ABG pO2 65.7 L (80.0-100.0) mmH g ABG HCO3 26.5 H (22-26) mmol/L ABG Base Excess -0.8 (-2.0-2.0) mmol/ L Chaz Test Pos Hematocrit 40.7 (37-47) % O2 Delivery Device Room air FiO2 21.0 % Guard Entrance Registrar ID Cak Blood Gas Notified Time Sodium 135 L (136-145) mmol/L Potassium 4.1 (3.5-5.1) mmol/L Chloride 100 (98-107) mmol/L Carbon Dioxide 25 (22-29) mmol/L Anion Gap 14.1 (5-19) BUN 12 (8-23) mg/dL Creatinine 0.8 (0.5-0.9) mg/dL GFR Calculation 72.0 L (90-130) mL/min Glucose 255 H (65-115) mg/dL Calculated Osmolal ity 285 (285-295) mOsm/k g Calcium 9.4 (8.5-10.5) mg/dL Total Bilirubin 0.2 (0.15-1.2) mg/dL AST 42 H (0-32) U/L ALT 57 H (0-33) U/L Alkaline Phosphata se 102 (35-105) IU/L Troponin T Baselin e (0-10) ng/L Total Protein 7.0 (6.6-8.7) g/dL Albumin 4.0 (3.5-5.2) g/dL Globulin 3.0 (1.3-4.6) g/dL Lipase 39 (13-60) U/L Urine Color (Yellow) Urine Appearance (CLEAR) Urine pH (5-7) Ur Specific Gravit y (1.005-1.030) Urine Protein (Negative) Urine Glucose (UA) (Normal) Urine Ketones (Negative) Urine Blood (Negative) Urine Nitrate (Negative) Urine Bilirubin (NEGATIVE) Urine Urobilinogen (Negative) mg/dL Ur Leukocyte Yoko ase (Negative) Urine RBC (0-2) /hpf Urine WBC (0-5) /hpf Ur Squamous Epith Cells (0-5) Amorphous Sediment Urine Bacteria (NONE) 02/26/20 02/26/20 02/26/20 Range/Units 14:23 14:29 15:01 WBC (4.0-10.0) 10^3/ uL RBC (4.1-5.3) 10^6/u L Hgb (11.5-15.3) g/dL Hct (37.0-47.0) % MCV (81-99) fL MCH (28.0-34.0) pg MCHC (30.0-36.0) g/dL RDW (12.1-15.1) % Plt Count (130-400) 10^3/c mm MPV (7.4-10.4) fL Neut % (Auto) % Lymph % (Auto) % [place] % (Auto) % Eos % (Auto) % Baso % (Auto) % Neut # (Auto) (1.8-7.7) 10^3/u L Lymph # (Auto) (0.8-4.8) 10^3/u L [place] # (Auto) (0.2-0.9) 10^3/u L Eos # (Auto) (0.0-0.8) 10^3/u L Baso # (Auto) (0.0-0.1) 10^3/u L Nucleated RBC % (a uto) % Nucleated RBCs # /100WBC Specimen Type Arterial Sample Site Radial, left ABG pH 7.31 L (7.35-7.45) ABG pCO2 52.7 H (35-45) mmHg ABG pO2 66.4 L (80.0-100.0) mmH g ABG HCO3 26.4 H (22-26) mmol/L ABG Base Excess -0.7 (-2.0-2.0) mmol/ L Chaz Test Pos Hematocrit 40.5 (37-47) % O2 Delivery Device Room air FiO2 21.0 % Guard Entrance Registrar ID Cak Blood Gas Notified Time Sodium (136-145) mmol/L Potassium (3.5-5.1) mmol/L Chloride (98-107) mmol/L Carbon Dioxide (22-29) mmol/L Anion Gap (5-19) BUN (8-23) mg/dL Creatinine (0.5-0.9) mg/dL GFR Calculation (90-130) mL/min Glucose (65-115) mg/dL Calculated Osmolal ity (285-295) mOsm/k g Calcium (8.5-10.5) mg/dL Total Bilirubin (0.15-1.2) mg/dL AST (0-32) U/L ALT (0-33) U/L Alkaline Phosphata se (35-105) IU/L Troponin T Baselin e 8 (0-10) ng/L Total Protein (6.6-8.7) g/dL Albumin (3.5-5.2) g/dL Globulin (1.3-4.6) g/dL Lipase (13-60) U/L Urine Color Yellow (Yellow) Urine Appearance Sl hazy (CLEAR) Urine pH 6.5 (5-7) Ur Specific Gravit y 1.010 (1.005-1.030) Urine Protein Neg (Negative) Urine Glucose (UA) Norm (Normal) Urine Ketones Negative (Negative) Urine Blood Neg (Negative) Urine Nitrate Negative (Negative) Urine Bilirubin Neg (NEGATIVE) Urine Urobilinogen Norm (Negative) mg/dL Ur Leukocyte Yoko ase Negative (Negative) Urine RBC None (0-2) /hpf Urine WBC 0-4 H (0-5) /hpf Ur Squamous Epith Cells 5-10 H (0-5) Amorphous Sediment Not Reportable Urine Bacteria 1+ H (NONE) 02/26/20 Range/Units 16:27 WBC (4.0-10.0) 10^3/ uL RBC (4.1-5.3) 10^6/u L Hgb (11.5-15.3) g/dL Hct (37.0-47.0) % MCV (81-99) fL MCH (28.0-34.0) pg MCHC (30.0-36.0) g/dL RDW (12.1-15.1) % Plt Count (130-400) 10^3/c mm MPV (7.4-10.4) fL Neut % (Auto) % Lymph % (Auto) % [place] % (Auto) % Eos % (Auto) % Baso % (Auto) % Neut # (Auto) (1.8-7.7) 10^3/u L Lymph # (Auto) (0.8-4.8) 10^3/u L [place] # (Auto) (0.2-0.9) 10^3/u L Eos # (Auto) (0.0-0.8) 10^3/u L Baso # (Auto) (0.0-0.1) 10^3/u L Nucleated RBC % (a uto) % Nucleated RBCs # /100WBC Specimen Type Arterial Sample Site Radial, right ABG pH 7.30 L (7.35-7.45) ABG pCO2 51.1 H (35-45) mmHg ABG pO2 82.7 (80.0-100.0) mmH g ABG HCO3 25.4 (22-26) mmol/L ABG Base Excess -1.7 (-2.0-2.0) mmol/ L Chaz Test Pos Hematocrit 42.1 (37-47) % O2 Delivery Device Bipap FiO2 30.0 % Guard Entrance Registrar ID Jlg Blood Gas Notified Time 1640 Sodium (136-145) mmol/L Potassium (3.5-5.1) mmol/L Chloride (98-107) mmol/L Carbon Dioxide (22-29) mmol/L Anion Gap (5-19) BUN (8-23) mg/dL Creatinine (0.5-0.9) mg/dL GFR Calculation (90-130) mL/min Glucose (65-115) mg/dL Calculated Osmolal ity (285-295) mOsm/k g Calcium (8.5-10.5) mg/dL Total Bilirubin (0.15-1.2) mg/dL AST (0-32) U/L ALT (0-33) U/L Alkaline Phosphata se (35-105) IU/L Troponin T Baselin e (0-10) ng/L Total Protein (6.6-8.7) g/dL Albumin (3.5-5.2) g/dL Globulin (1.3-4.6) g/dL Lipase (13-60) U/L Urine Color (Yellow) Urine Appearance (CLEAR) Urine pH (5-7) Ur Specific Gravit y (1.005-1.030) Urine Protein (Negative) Urine Glucose (UA) (Normal) Urine Ketones (Negative) Urine Blood (Negative) Urine Nitrate (Negative) Urine Bilirubin (NEGATIVE) Urine Urobilinogen (Negative) mg/dL Ur Leukocyte Yoko ase (Negative) Urine RBC (0-2) /hpf Urine WBC (0-5) /hpf Ur Squamous Epith Cells (0-5) Amorphous Sediment Urine Bacteria (NONE) Imaging Data^: CXR: My impression: No acute cardiopulmonary finding Left ankle/foot: My impression: No acute fractures or dislocations Right knee: My impression: No acute fractures dislocations CT Head: Radiologist's impression: [address] [address] [address] Scan Report Signed Patient: Kaylee Ch Unit #: [id number] : 1955 Age/Sex: 64 / F ADM Date: 02/26/20 Loc: ER Room/Bed: Attending Dr: Ordering Provider/Ordering MD: Mattie Mosquera DO Date of Service: 02/26/20 Procedure(s): CT head wo con* [id number] Accession Number(s): [id number] Report Number: [id number] WS: [id number] CT HEAD NONCONTRAST HISTORY: FALL/INJURY TECHNIQUE: Contiguous axial imaging performed through the brain in 2.5 mm imaging. Bone and soft tissue windows. Sagittal and coronal reformats reviewed. All CT scans at [facility] use at least one of these dose optimization techniques: automated exposure control; mA and/or kV adjustment per patient size (includes targeted exams where dose is matched to clinical indication); or iterative reconstruction. DLP: 1591.53 mGy.cm COMPARISON: 03/08/2019 No acute intracranial hemorrhage, midline shift or mass effect. Mild atrophy and chronic ischemic disease. No midline shift. Ventricles: Normal size with no hydrocephalus. There are several small foci of air at the skull base of uncertain etiology. No skull base fracture is identified. Paranasal sinuses: As visualized are clear. Mastoid air cells: Well pneumatized. Calvarium and scalp: Skull is intact with no soft tissue edema or swelling. CT/CT head wo con* [id number] IMPRESSION: 1. No acute intracranial hemorrhage. 2. There are several small side of air near the skull base in the dorsum sellae of uncertain etiology. No skull base fracture is identified. Dictated By: Halley Tapia DO Signed By: Halley Tapia DO Signed Date/Time: 02/26/20 1424 DD/ 1420 CT Abd/Pel: Radiologist's impression: [address] [address] [address] Scan Report Signed Patient: Kaylee Ch Unit #: [id number] : 1955 Age/Sex: 64 / F ADM Date: 02/26/20 Loc: ER Room/Bed: Attending Dr: Ordering Provider/Ordering MD: Mattie Mosquera DO Date of Service: 02/26/20 Procedure(s): CT abdomen pelvis w con* [id number] Accession Number(s): [id number] Report Number: [id number] WS: [id number] CT ABDOMEN AND PELVIS WITH CONTRAST HISTORY: Abdominal pain TECHNIQUE: Imaging performed of the abdomen and pelvis with IV contrast. Single phase imaging of the abdomen. Coronal and sagittal reformats are submitted. All CT scans at [facility] use at least one of these dose optimization techniques: automated exposure control; mA and/or kV adjustment per patient size (includes targeted exams where dose is matched to clinical indication); or iterative reconstruction. IV CONTRAST: Omnipaque 300; 95 mL IV. Oral contrast: No DLP: 1427.33 mGy.cm COMPARISON: 03/14/2017 Lower thorax: Lung bases are clear. Heart is normal size. No hiatal hernia. Liver/biliary system: Liver is slightly enlarged. The lateral LEFT lobe of liver is of decreased attenuation sharp demarcation as compared to the remaining liver. This is thought to be related to prior surgery with phase of enhancement or abnormal blood supply or drainage. Probably not related to the trauma. There is no adjacent inflammation or fluid. Hepatic steatosis and sparing along the falciform ligament. Gallbladder: Status post cholecystectomy. Pancreas: Normal. Spleen: Normal. Adrenal glands: Normal. Right kidney: Mild perinephric stranding. There is no obstruction. No solid mass. Left kidney: Mild perinephric stranding with no solid mass or obstruction. Aorta: Mild atherosclerosis with no aneurysm. Lymphadenopathy: None. Free fluid: None. GI tract: The appendix is not identified. No inflammatory changes or obstruction. Abdominal wall: Postsurgical changes along the anterior abdominal wall. No recurrent hernia. Pelvis: Distended urinary bladder. Bladder distends length of 17 cm. No intraluminal filling defect. Prior hysterectomy. Bones: Posterior lumbar fusion from L3 to L5. Bilateral rib fractures are present posteriorly. These fractures are not displaced and probably remote although there is not a lot of calcification surrounding the fractures. CT/CT abdomen pelvis w con* [id number] IMPRESSION: 1. No acute abdominal or pelvic abnormalities are identified. 2. Prior cholecystectomy. 3. Decreased attenuation with sharp demarcation in the lateral LEFT lobe of the liver. Probably related to attenuation differences and phase of enhancement and venous drainage. Probably not related to the trauma. The proximal LEFT portal vein appears smaller caliber. 4. No ascites. 5. Markedly distended urinary bladder. Dictated By: Halley Tapia DO Signed By: Halley Tapia DO Signed Date/Time: 02/26/20 1442 DD/ 1430 EKG Data^: EKG 1: Attestation: I personally reviewed and interpreted this EKG as follows: EKG interpretation date: 02/26/20 EKG interpretation time: 14:58 Interpretation: Normal sinus rhythm at 75 beats a minute, no acute ST or T wave changes, no blocks, normal intervals. EKG 2: Attestation: I personally reviewed and interpreted this EKG as follows: EKG interpretation date: 02/26/20 EKG interpretation time: 16:59 Interpretation: Normal sinus rhythm at 80 beats a minute, no acute ST-T wave changes. Discharge Plan Discharge Patient Disposition: Placed in Observation Clinical Impression: Acute alteration in mental status Fall Qualifiers: Encounter type: initial encounter Qualified Code(s): W19.XXXA - Unspecified fall, initial encounter Condition: Stable Referrals: Carter Yusuf MD [Primary Care Provider] - Coding Level of Care Code ED Svp for Chg Fwd Exam Comprehensive
[2020-02-26] MEDS: iohexol 300 mg/mL 100 mL Btl IV (14:11)
[2020-02-26 14:40] LABS: ABG PCO2 52.7 mmHg (35-45); ABG PH Result 7.31 (7.35-7.45); Arterial Blood Gas Hematocrit 40.5 % (37-47); Base Excess ABG -0.7 mmol/L (-2.0-2.0); Blood Gas Allen Test Pos; Blood Gas Operator Identificat CAK; Blood Gas Sample Site Radial, left; Blood Gas Sample Type Arterial; HCO3 ABG 26.4 mmol/L (22-26); Oxygen Device ROOM AIR; PO2 ABG 66.4 mmHg (80.0-100.0)
[2020-02-26 14:41] LABS: Add Urine Culture? No; Bacteria Urine 1+; Bilirubin Urine Neg (NEGATIVE); Blood Urine Neg (Negative); Glucose Urine UA Norm (Normal); Ketones Urine Negative (Negative); Leukocyte Esterase Urine Negative (Negative); Nitrate Urine Negative (Negative); Protein Urine Neg (Negative); Urine Appearance SL Hazy (CLEAR); Urine Color Yellow (Yellow); Urobilinogen Urine Norm (Negative); WBC Urine 0-4 /hpf (0-5); pH Urine 6.5 (5-7)
--- NOTE | 2020-02-26 14:52 | ECG_ITS ---
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 Measurements Intervals [place] Rate: 75 P: 61 CT: 193 QRS: 93 QRSD: 94 T: 71 QT: 382 QTc: 428 Interpretive Statements SINUS RHYTHM BORDERLINE RIGHT AXIS DEVIATION [QRS AXIS > 90] Compared to ECG 08/08/2019 22:04:25 No significant changes Electronically Signed On 02-26-2020 23:03:45 CDT by Barrie Urbina M.D. [id number] f
[2020-02-26] MEDS: ipratropium-albuterol 3 mL Neb 9 ML INHALATION (15:12)
[2020-02-26 15:36] LABS: Troponin(5th) Baseline 8 ng/L (0-10)
[2020-02-26 16:38] LABS: ABG PCO2 51.1 mmHg (35-45); Arterial Blood Gas Hematocrit 42.1 % (37-47); Base Excess ABG -1.7 mmol/L (-2.0-2.0); Blood Gas Allen Test Pos; Blood Gas Sample Site Radial, right; Blood Gas Sample Type Arterial; HCO3 ABG 25.4 mmol/L (22-26); Oxygen Device BIPAP; PO2 ABG 82.7 mmHg (80.0-100.0)
[2020-02-26 16:41] LABS: Blood Gas CCRB Time 1640
--- NOTE | 2020-02-26 16:52 | ECG_ITS ---
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 Measurements Intervals [place] Rate: 80 P: 66 NH: 191 QRS: 90 QRSD: 97 T: 72 QT: 366 QTc: 422 Interpretive Statements SINUS RHYTHM Compared to ECG 02/26/2020 14:58:14 No significant changes Electronically Signed On 02-26-2020 23:35:47 CDT by Barrie Urbina M.D. [id number]
--- NOTE | 2020-02-26 17:00 | PC.NURSE ---
EKG done at 1700 and shown to ER doctor
--- NOTE | 2020-02-26 17:47 | P.HP_ITS ---
Providers/Chief Complaint Admitting Physician: Moiz Gordon MD Primary Care Provider: Carter Yusuf MD Chief Complaint: FALL/ ABDOMINAL PAIN/ FOOT PAIN History of Present Illness Kaylee Ch is a 64 year old female presents to emerge department with altered mental status and fall. Apparently patient was planned to have dental procedure and took [place] prior to procedure anticipating pain. She had her procedure performed but appeared to be lethargic after it was done and dentistry staff drove patient home but unfortunately she fell on the way to home and EMS was summoned. Patient was found to be what appears hypercapnic and hypoxic respiratory failure which did not respond much to BiPAP. She did not respond much to 2 doses of Narcan in ER. During my evaluation in ER patient reports feeling better and less somnolent. She reports having chronic tension headache originating at her shoulders and up the neck to the posterior head which patient reports she had for the last 20 years. Reports previous evaluation by neurology service with diagnosis of te nsion headache. Her CT scan was concerning for several small side of air near the skull base in the dorsum sellae. Dr. Mosquera discussed with radiologist and apparently this can happen with dental procedures. Patient lost her 1 month ago due to Eleuterio's granulomatosis disease and now lives alone. I also would like to mention that patient fell on her abdomen and she had somewhat sharp demarcation in the lateral left lobe of the liver but radiologist felt that it is probably not related to trauma. She had couple rib fractures which appear old. Review of Systems Const: Denies: fever(s) or chills Eyes: Denies: change in vision ENMT: Denies: throat pain or change in hearing Card: Denies: chest pain, edema or lightheadedness Resp: Denies: dyspnea or productive cough GI: Reports: diarrhea (Chronic for many years for which patient takes Imodium); Denies: abdominal pain, nausea, vomiting, dysphagia, constipation, hematochezia or melena : Denies: difficulty voiding Musc: Denies: joint pain or joint swelling Skin/Breast: Denies: rash or erythema Neuro: Reports: headache(s) (As mentioned before.); Denies: weakness in extremities Psych: Denies: depression or suicidal ideation Endo: Denies: excessive sweating Isidoro/Lymph: Denies: easy bleeding or tender lymph nodes All/Imm: Denies: throat swelling Medications/Allergies Home Medications Medication Instructions Recorded Confirmed Last Taken Type aspirin 81 mg tablet,delayed 81 mg PO DAILY 08/28/19 02/26/20 02/25/20 History release diazepam 10 mg tablet 20 mg PO DAILY PRN tab 08/28/19 02/26/20 02/25/20 History duloxetine 60 mg capsule,delayed 120 mg PO DAILY cap 08/28/19 02/26/20 02/25/20 History release folic acid-vit B6-vit B12 2.5 1 tab PO DAILY 08/28/19 02/26/20 02/25/20 History mg-25 mg-2 mg tablet hydrocodone-acetaminophen 1 tab PO Q6H PRN #10 tab 08/28/19 02/26/20 02/25/20 Rx insulin glargine 100 unit/mL 40 unit SUBCUT DAILY ml 08/28/19 02/26/20 02/25/20 History subcutaneous solution lamotrigine 200 mg tablet 200 mg PO BID 08/28/19 02/26/20 02/25/20 History levothyroxine 75 mcg capsule 75 mcg PO DAILY 08/28/19 02/26/20 02/25/20 History metformin 1,000 mg tablet 1,000 mg PO BID 08/28/19 02/26/20 02/25/20 History omeprazole 20 mg tablet,delayed 20 mg PO BID 08/28/19 02/26/20 02/25/20 History release oxybutynin chloride 5 mg tablet 5 mg PO BID 08/28/19 02/26/20 02/25/20 History potassium chloride 20 mEq 20 meq PO DAILY 08/28/19 02/26/20 02/25/20 History tablet,extended release pregabalin 50 mg capsule 50 mg PO BID 08/28/19 02/26/20 02/25/20 History propranolol 80 mg capsule,24 80 mg PO BID cap 08/28/19 02/26/20 02/25/20 History hr,extended release quetiapine 100 mg tablet 100 mg PO DAILY 08/28/19 02/26/20 02/25/20 History glimepiride 4 mg PO BID 08/29/19 02/26/20 02/25/20 History Crutches #1 ea 09/16/19 02/26/20 Unknown Rx crutches #1 ea 09/16/19 02/26/20 Unknown Rx ORTHO WEDGE #1 ea NS 09/30/19 02/26/20 Unknown Rx Ortho Wedge Shoe #1 ea 10/01/19 02/26/20 Unknown Rx Allergies Allergy/AdvReac Type Severity Reaction Status Date / Time azithromycin [From Zithromax] Allergy rash Verified 01/13/20 13:45 lisinopril [From Zestril] Allergy ALGY-Swell Verified 01/13/20 13:45 Lip/Tongue/Throat PFSH Acute PFSH: Medical History CVA (cerebral vascular accident) History of anemia History of anxiety History of aphasia History of bipolar disorder History of depression History of GI bleed History of hypothyroidism History of posttraumatic stress disorder (PTSD) Hx of kidney disease Hx of primary hypertension Hx of type 2 diabetes mellitus TIA (transient ischemic attack) Surgical History History of back surgery Hx of appendectomy Hx of cholecystectomy Hx of hysterectomy Hx of neck surgery Social History Smoking and tobacco status: never smoked Vitals/I&O/Wt Last Vital Signs Temp 97.8 F 02/26/20 11:48 Pulse 82 02/26/20 17:45 Resp 17 02/26/20 17:45 BP 139/83 02/26/20 17:45 Pulse Ox 100 02/26/20 17:45 Weight last 48 hrs Weight 86.183 kg Physical Exam Const: COMMON NORMALS: no acute distress, patient oriented x3 and alert HENMT: COMMON NORMALS: normocephalic and atraumatic HEAD & SCALP: normocephalic and atraumatic Eye: COMMON NORMALS: EOMs intact bilaterally, conjunctivae normal and no scleral icterus CONJUNCTIVA: Yes conjunctivae normal Neck/C-Spine: COMMON NORMALS: no lymphadenopathy and no meningeal signs Lymph: LYMPHATIC: no lymphadenopathy noted Chest: COMMONS NORMALS: normal palpation of entire chest wall Resp: COMMON NORMALS: No use of accessory muscles and clear to auscultation bilaterally AUSCULTATION: clear to auscultation bilaterally Cardio: COMMON NORMALS: regular rate, regular rhythm and No murmurs present (Cardio) RATE: regular rate RHYTHM: regular rhythm OTHER: No lower extremity edema GI: COMMON NORMALS: Soft to palpation and non-tender PALPATION: Yes Soft to palpation RECTAL EXAM: deferred : COMMON NORMALS: Yes no CVA tenderness BLADDER/KIDNEY EXAM: Yes no CVA tenderness Back/Pelvis: COMMON NORMALS: no CVA tenderness and thoracic and lumbar spine normal to inspection Extremity: COMMON NORMALS: normal to inspection and capillary refill normal Neuro: COMMON NORMALS: patient oriented x3 and no focal motor deficits SENSORIUM/ORIENTATION: Yes alert MENINGEAL SIGNS: Yes no meningeal signs Psych: COMMON NORMALS: mental status grossly normal, Normal thought process present and cooperative THOUGHT PROCESS: Normal thought process present Skin: COMMON NORMALS: no rashes or lesions noted GENERAL SKIN EXAM: no rashes or lesions noted Data : 02/26/20 12:06 02/26/20 12:06 A&P Assessment and plan (1) Acute respiratory failure with hypoxia and hypercapnia: This appears to be related to medications including anesthetics during dental procedure. Status: Acute (2) Acute alteration in mental status: With lethargy. Appears to be medication related Status: Acute (3) Fall: Denies trauma. Status: Acute Qualifiers: Encounter type: initial encounter Qualified Code(s): W19.XXXA - Unspec ified fall, initial encounter (4) Tension headache, chronic: Status: Acute (5) Chronic diarrhea: Status: Acute (6) Hypothyroidism: Status: Acute Additional A&P Information Air near the skull base in the dorsum sellae. This appears to be related to dental procedure. Markedly distended urinary bladder per imaging. Most likely due to oxybutynin and opiate/benzodiazepine medications. PLAN: We will continue close monitoring in ICU and BiPAP and oxygen use as needed. Gentle IV hydration with LR DC oxybutynin. Does not appear to have UTI. Will place Wyatt catheter and request to document immediate output. Monitor for any signs of bleeding/liver laceration. Patient may require repeat imaging to make sure her CT findings are stable. If doing well in the morning we will likely be able to dismiss patient home. Will use SCDs for prophylaxis and avoid anticoagulation as patient could potentially be at risk for bleeding. Consider decreasing dose of Valium. Discussed with Dr. Yusuf who will take over patient's care tomorrow. Attestations Medical Necessity Statement*: Patient with respiratory failure requires close ICU monitoring and treatment. I expect patient will require less than two midnights. Time Spent in Patient Care: Greater than 35 minutes Coding Level of Care Code Acute Skin Toggler for Chg Fwd Diagnoses Acute respiratory failure with hypoxia and hypercapnia J96.01; J96.02 Acute alteration in mental status R41.82 Fall W19.XXXA Encounter type: initial encounter Tension headache, chronic G44.229 Chronic diarrhea K52.9 Hypothyroidism E03.9
--- NOTE | 2020-02-26 20:52 | ECG_ITS ---
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 Measurements Intervals [place] Rate: 102 P: 73 [place]: 188 QRS: 97 QRSD: 89 T: 59 QT: 346 QTc: 451 Interpretive Statements SINUS TACHYCARDIA BORDERLINE RIGHT AXIS DEVIATION [QRS AXIS > 90] ABNORMAL RHYTHM ECG Compared to ECG 02/26/2020 16:59:25 Sinus rhythm no longer present Electronically Signed On 02-26-2020 23:36:54 CDT by Barrie Urbina M.D. [id number]
[2020-02-27] VITALS (18 sets, daily range): BP systolic 112–182; BP diastolic 65–98; PULSE 77–113; RESP 12–25; TEMP 36.6–37; O2SAT 91–99
[2020-02-27 04:11] LABS: Basophils % 0.1 %; Hematocrit 42.3 % (37.0-47.0); Hemoglobin 13.1 g/dL (11.5-15.3); Lymphocytes # 2.1 10^3/uL (0.8-4.8); Lymphocytes % 15.1 %; Mean Corpuscular Volume 93.6 fL (81-99); Mean Platelet Volume 10.2 fL (7.4-10.4); Monocytes # 0.4 10^3/uL (0.2-0.9); Monocytes % 3.1 %; Neutrophils # 11.01 10^3/uL (1.8-7.7); Neutrophils % 80.7 %; Nucleated Red Blood Cells % 0 %; Platelet Count 264 10^3/cmm (130-400); Red Blood Count 4.52 10^6/uL (4.1-5.3); Red Cell Distribution Width 12.6 % (12.1-15.1); White Blood Count 13.7 10^3/uL (4.0-10.0)
[2020-02-27 04:33] LABS: Alanine Aminotransferase 58 U/L (0-33); Alkaline Phosphatase 109 IU/L (35-105); Anion Gap 16.3 (5-19); Aspartate Amino Transferase 37 U/L (0-32); Blood Urea Nitrogen 13 mg/dL (8-23); Calcium 9.5 mg/dL (8.5-10.5); Carbon Dioxide 24 mmol/L (22-29); Chloride 100 mmol/L (98-107); Globulin 2.6 g/dL (1.3-4.6); Glomerular Filtration Rate 62.8 mL/min (90-130); Glucose 252 mg/dL (65-115); Osmolality Calculated 287 mOsm/kg (285-295); Potassium 4.3 mmol/L (3.5-5.1); Sodium 136 mmol/L (136-145); Total Bilirubin 0.2 mg/dL (0.15-1.2); Total Protein 6.6 g/dL (6.6-8.7)
[2020-02-27 04:38] LABS: Troponin 5 6HR 8.41 ng/L (0-10)
--- NOTE | 2020-02-27 07:24 | US_ITS ---
WS: [id number] EXAM: RIGHT UPPER QUADRANT ULTRASOUND DATE OF EXAMINATION: 02/27/2020, 1517 hours COMPARISON: CT of the abdomen and pelvis from one day prior. HISTORY: 64-year-old with fatty liver disease. Abnormal liver exam on the prior CT. FINDINGS: Visualized pancreas is normal in appearance. Proximal inferior vena cava and aorta are normal in conner fred. Liver echotexture is coarsened and increased in echogenicity. Liver is enlarged over 20 cm in length. No mass within the liver is identified. Portal venous flow is demonstrated by color flow and spectra l Doppler with flow towards the liver. The gallbladder is surgically absent. Common bile duct 3.8 mm in transverse caliber. The right kidney is 11.4 x 5.9 x 4.3 cm in size otherwise unremarkable. US/US liver [id number] IMPRESSION: Prior cholecystectomy. Common bile duct 3.8 mm in transverse caliber. Hepatomegaly with diffuse fatty infiltration. No mass lesion or laceration seen within the liver.
[2020-02-27 07:43] LABS: Glucose Point of Care 208 mg/dL (70-110)
[2020-02-27] MEDS: HYDROcodone-acetaminophen 5-325 mg Tablet 1 TAB PO ×2 (07:56→14:36)
[2020-02-27] MEDS: propranolol 40 mg Tablet 80 MG PO ×2 (08:16→17:36)
[2020-02-27] MEDS: lamoTRIgine 100 mg Tablet 200 MG PO ×2 (08:16→17:35)
[2020-02-27] MEDS: levothyroxine 150 mcg Tablet 75 MCG PO (08:17)
[2020-02-27] MEDS: pregabalin 50 mg Capsule PO ×2 (08:17→17:35)
[2020-02-27] MEDS: pantoprazole DR 40 mg Tablet PO (08:17)
[2020-02-27] MEDS: duloxetine 60 mg Capsule 120 MG PO (08:17)
[2020-02-27] MEDS: insulin glargine 100 units/1 mL 20 UNIT SUBCUT (09:42)
--- NOTE | 2020-02-27 13:17 | PC.CHAP ---
Pastoral Care Encounter/Spiritual Assessment Type of Contact [] Declined hydraulic oil tool operator visit [] Patient/Family/Request visit [] Outpatient visit [] Follow-up visit [] Physician referral [] Code/Alert [x] Routine visit [] Staff referral [] Actively dying [x] Patient sleeping [] Family support [] [] Out of room [] Palliative care [] [] Receiving care in room [] Pre-surgical visit [] Trauma [] Long length of stay [x] ICU visit [] Other: Relational/Emotional Strength [] Patient feels connected with others/family/visitors/staff [] Distress [] Loneliness/isolation [] Abandonment Spirituality of Patient [] Person of Cleopatra [] Attends Quaker of their Cleopatra [] Believes in Prayer [] Reads Bible or Shinto materials [] There are Spiritual issues to be addressed Accounting Specialist Interventions [] Prayer [] Active listening [] Non-anxious presence [] Spiritual/emotional support [] Crisis/trauma care [] Spiritual counseling [] Bereavement support [] Provided bereavement packet [] Provided Bible/devotional materials [] Provided toy/stuffed animal, coloring book to patient or family member [] Provided Communion [] Anointing/Brooks [] Salvation [] Completed spiritual assessment [] Other: Impact on Illness or Injury [] Angry [] Fearful [] Anxious [] Often cries [] Exhaustion [] Unable to work [] Unable to attend gnosticist [] Unable to walk/stand [] Unable to read [] Unable to drive [] Unable to eat/drink [] Unable to sleep [] Unable to be with family [] Patient intubated [] Other: Summary Patient was sleeping at the time of hydraulic oil tool operator visit. The patient appeared to be resting comfortably. Accounting Specialist [facility] Patient visit attempted by Accounting Specialist Noel Mora. Time spent with patient 3 minutes
--- NOTE | 2020-02-27 16:57 | P.DS_ITS ---
Discharge Providers Date of Admission: 02/26/20 16:49 Date of Discharge: February 27, 2020 Attending Provider at Admission: Moiz Gordon MD Attending Provider at Discharge: Carter Yusuf MD Primary Care Provider: Carter Yusuf MD Diagnoses at Discharge Discharge Diagnosis (1) Acute respiratory failure with hypoxia and hypercapnia: Status: Acute (2) Acute alteration in mental status: Status: Acute (3) Fall: Status: Acute Qualifiers: Encounter type: initial encounter Qualified Code(s): W19.XXXA - Unspecified fall, initial encounter (4) Tension headache, chronic: Status: Acute (5) Chronic diarrhea: Status: Acute (6) Hypothyroidism: Status: Acute Reason for Visit Reason for Visit: FALL/ ABDOMINAL PAIN/ FOOT PAIN Hospital Course Discharge Summary: Patient was admitted the hospital after having a fall at home. She had had dental work earlier in the day. She falls often at home. She was shaky and seemed to have some respiratory distress. Brought in by EMS. symptoms largely resolved once she arrived. Monitored overnight for bleeding and worsening symptoms. Done well overnight and her confusions and dyspnea resolved. Was at baseline and Discharged home in stable condition. Discharge Data Data Completed and Pending: Completed Studies During Hospitalization Category Date Time Status CT abdomen pelvis w con* [id number] Stat Cat Scan 02/26/20 11:[address] head wo con* 7 0450 Stat Cat Scan 02/26/20 11:54 Completed XR ankle LT min 3 V* [id number] Stat Exams 02/26/20 11:53 Completed XR chest 1V johnny ble [id number] Stat Exams 02/26/20 11:54 Completed XR foot LT min 3V * [id number] Stat Exams 02/26/20 11:53 Completed XR knee RT 3V* [id number] Stat Exams 02/26/20 11:53 Completed US liver [id number] Ro utine Ultrasound 02/27/20 07:24 Completed Pending at discharge Category Date Time Status Comprehensive Met abolic Panel AM LA BS Lab 02/28/20 04:00 Ordered Comprehensive Met abolic Panel AM LA BS Lab 02/29/20 04:00 Ordered Labs from last 24 hours 02/27/20 02/27/20 02/27/20 07:41 03:24 03:24 WBC RBC Hgb Hct MCV MCH MCHC RDW Plt Count MPV Neut % (Auto) Lymph % (Auto) [place] % (Auto) Eos % (Auto) Baso % (Auto) Neut # (Auto) Lymph # (Auto) [place] # (Auto) Eos # (Auto) Baso # (Auto) Nucleated RBC % (a uto) Nucleated RBCs # Sodium 136 Cancelled Potassium 4.3 Cancelled Chloride 100 Cancelled Carbon Dioxide 24 Cancelled Anion Gap 16.3 Cancelled BUN 13 Cancelled Creatinine 0.9 Cancelled GFR Calculation 62.8 L Cancelled Glucose 252 H Cancelled POC Glucose 208 Calculated Osmolal ity 287 Cancelled Calcium 9.5 Cancelled Total Bilirubin 0.2 AST 37 H ALT 58 H Alkaline Phosphata se 109 H Troponin T 120 Min bijal Delta Troponin T Troponin T Hi Sens 6Hr Troponin T Hi Sens 6Hr Delta Total Protein 6.6 Albumin 4.0 Globulin 2.6 02/27/20 02/27/20 02/26/20 03:24 03:24 17:07 WBC 13.7 H RBC 4.52 Hgb 13.1 Hct 42.3 MCV 93.6 MCH 29.0 MCHC 31.0 RDW 12.6 Plt Count 264 MPV 10.2 Neut % (Auto) 80.7 Lymph % (Auto) 15.1 [place] % (Auto) 3.1 Eos % (Auto) 0.0 Baso % (Auto) 0.1 Neut # (Auto) 11.01 H Lymph # (Auto) 2.1 [place] # (Auto) 0.4 Eos # (Auto) 0.0 Baso # (Auto) 0.0 Nucleated RBC % (a uto) 0 Nucleated RBCs # 0.0 Sodium Potassium Chloride Carbon Dioxide Anion Gap BUN Creatinine GFR Calculation Glucose POC Glucose Calculated Osmolal ity Calcium Total Bilirubin AST ALT Alkaline Phosphata se Troponin T 120 Min bijal 8.40 Delta Troponin T 0.40 Troponin T Hi Sens 6Hr 8.41 Troponin T Hi Sens 6Hr Delta TNP Total Protein Albumin Globulin Vitals: Last Vital Signs Temp 98.6 F 02/27/20 12:00 Pulse 91 02/27/20 16:00 Resp 25 H 02/27/20 16:00 BP 182/98 02/27/20 16:00 Pulse Ox 92 02/27/20 16:00 Discharge Plan Discharge Patient Disposition: Home Condition: Stable Prescriptions: Continued potassium chloride 20 mEq tablet extended release 20 meq PO DAILY RF: 0 metformin 1,000 mg tablet 1,000 mg PO BID RF: 0 levothyroxine 75 mcg capsule 75 mcg PO DAILY RF: 0 pregabalin [Lyrica] 50 mg capsule 50 mg PO BID RF: 0 omeprazole 20 mg tablet,delayed release (DR/EC) 20 mg PO BID RF: 0 Folbic 2.5-25-2 mg tablet 1 tab PO DAILY RF: 0 propranolol 80 mg capsule,extended release 24 hr 80 mg PO BID RF: 0 oxybutynin chloride 5 mg tablet 5 mg PO BID RF: 0 duloxetine 60 mg capsule,delayed release(DR/EC) 120 mg PO DAILY RF: 0 lamotrigine 200 mg tablet 200 mg PO BID RF: 0 aspirin [Adult Low Dose Aspirin] 81 mg tablet,delayed release (DR/EC) 81 mg PO DAILY RF: 0 quetiapine 100 mg tablet 100 mg PO DAILY RF: 0 diazepam 10 mg tablet 20 mg PO DAILY PRN (Reason: Anxiety) RF: 0 Lantus U-100 Insulin 100 unit/mL solution 40 unit SUBCUT DAILY RF: 0 (DME) crutches Qty: 1 RF: 0 (DME) Crutches Qty: 1 RF: 0 (DME) ORTHO WEDGE Qty: 1 RF: 0 (DME) Ortho Wedge Shoe Qty: 1 RF: 0 hydrocodone-acetaminophen 5-325 mg tablet 1 tab PO Q6H PRN (Reason: pain) Qty: 10 RF: 0 glimepiride 4 mg tablet 4 mg PO BID RF: 0 Discharge Orders: Discharge Order (Routine); Ordered 02/27/20 Ordered By: Carter Yusuf Referrals: Carter Yusuf MD [Primary Care Provider] - 4-7 days Discharge Diet: Usual diet Discharge Activity: Resume usual activity Activity Restrictions/Additional Instructions: - Resume your home medications the same. No medication changes are being made. - Call if increased falls, weakness, abdominal pain - Follow up with Dr. Yusuf next week. Discharge Attestations Time Spent in Discharge Care*: greater than 30 min Quality Metrics Clinical Quality Measures During this hospital stay, did patient experience: None Coding Level of Care Code Acute Plant Hr Manager for Chg Fwd Diagnoses Acute respiratory failure with hypoxia and hypercapnia J96.01; J96.02 Acute alteration in mental status R41.82 Fall W19.XXXA Encounter type: initial encounter Tension headache, chronic G44.229 Chronic diarrhea K52.9 Hypothyroidism E03.9
[2020-02-27 17:03] LABS: Glucose Point of Care 133 mg/dL (70-110)
[2020-02-28 21:45] LABS: Glucose Point of Care 206 mg/dL (70-110)
== END 2020-02-27 18:00 | disposition home or self-care (01) ==
LOC: ER 17:07 → ICU 17:38
PROVIDERS: Emergency Medicine; Admitting Provider Internal Medicine; PCP Family Medicine; Visit Provider Internal Medicine
DX: R41.82 Altered mental status, unspecified (principal); J96.01 Acute respiratory failure with hypoxia; J96.02 Acute respiratory failure with hypercapnia; G44.229 Chronic tension-type headache, not intractable; I10 Essential (primary) hypertension; K52.9 Noninfective gastroenteritis and colitis, unspecified; E11.9 Type 2 diabetes mellitus without complications; Z86.73 Personal history of transient ischemic attack (TIA), and cerebral infarction without residual deficits; Z79.4 Long term (current) use of insulin; E03.9 Hypothyroidism, unspecified
CPT/HCPCS: 12345; 36415; 36416; 36600; 70450; 71045; 73562; 73610; 73630; 74177; 76705; 80053; 81001; 82803; 82962; 83690; 84484; 85025; 93005; 94640; 94660; 96361; 96372; 96374; 96375; 99284; 99291; G0378; J1815 ×2; J2310; J2405; J2930; J7030; Q9967

== ENCOUNTER 2020-03-04 11:16 | Emergency (ER) | payer MEDICARE, OTHER, SELFPAY ==
[2020-03-04 11:17] VITALS: BP 106/68; PULSE 78; RESP 18; TEMP 36.9; O2SAT 95; BMI 30.7
[2020-03-04 11:24] VITALS: BP 130/72; PULSE 73; RESP 18; O2SAT 96
--- NOTE | 2020-03-04 11:24 | XR_ITS ---
WS: [id number] Portable AP upright chest, 03/04/2020 Clinical Data: CP Comparison: Portable chest, 02/26/2020. Findings: No nodules, masses or effusions are seen. The heart is normal. The pulmonary vascularity is not increased. No pneumonia or pneumothorax is seen. The old bilateral rib fractures are seen. The a nterior cervical disc fusion remains intact. There is calcification of the arch of the aorta. XR/XR chest 1V portable [id number] Impression: Atherosclerosis.
--- NOTE | 2020-03-04 11:25 | CT_ITS ---
WS: [id number] CT HEAD TECHNIQUE: Noncontrast CT of the head obtained from the skullbase to the vertex. CLINICAL INFORMATION: Headache COMPARISON: February 26, 2020 DLP: 2129.[address] scans at [facility] use at least one of these dose optimization techniques: automat ed exposure control; mA and/or kV adjustment per patient size (includes targeted exams where dose is matched to clinical indication); or iterative reconstruction. FINDINGS: No evidence of intracranial hemorrhage or mass effect. Ventricular system and basal cisterns are menard nt. Moderate small vessel changes with moderate parenchymal volume loss. No extra-axial fluid collect ions. No evidence of mass or mass effect. Normal bowser-white differentiation. Paranasal sinuses and mastoid air cells are well aerated. .Normal visualized soft tissues. CT/CT head wo con* [id number] IMPRESSION: 1. No evidence of intracranial hemorrhage or mass effect. 2. Moderate small vessel changes moderate parenchymal volume loss 3. No acute intracranial findings.
--- NOTE | 2020-03-04 11:25 | CT_ITS ---
WS: [id number] CTA HEAD AND NECK TECHNIQUE: Contrast enhanced CTA of the head and neck with coronal and sagittal reformatted images an d maximum intensity projection (MIP) images. NASCET criteria utilized. CLINICAL INFORMATION: Headache/vertigo COMPARISON: None. DLP: 2501.[address] scans at [facility] use at least one of these dose optimization techniques: automat ed exposure control; mA and/or kV adjustment per patient size (includes targeted exams where dose is matched to clinical indication); or iterative reconstruction. FINDINGS: RIGHT: Right common carotid artery is patent. Retropharyngeal course right cervical ICA. No significa nt right ICA stenosis. ICA is tortuous and patent to the skull base. LEFT: Left common carotid artery is patent. No significant left ICA stenosis. Left ICA is patent to t he skull base. INTRACRANIAL CTA: Both vertebral arteries are patent. Left dominant vertebral artery. Basilar artery is patent. Normal vascularity to the HEEL EMERY BUFFER territory bilaterally. Both ICAs are patent at the skull base. Normal vascularity to the ANYI and MCA territories bilaterally . No evidence of flow-limiting stenosis or aneurysm. Prior postoperative changes anterior fusion cervical spine C5-C7. Prominent cervical lymph nodes nons pecific but likely reactive. Emphysematous changes in the lung apices. CT/CT angio headneck* [id number] IMPRESSION: 1. No significant cervical ICA stenosis bilaterally. Both ICAs are patent to t he skull base. 2. Left dominant vertebral artery. Both vertebral arteries are patent. Proxima l basilar artery is patent. 3. Unremarkable intracranial CTA. No flow-limiting stenosis or aneurysm. 4. Retropharyngeal course to the right cervical ICA. 5. Enlarged bilateral cervical lymph nodes nonspecific but likely reactive. 6. Prior postoperative changes anterior cervical fusion C5-C7. Message left for Mattie Mosquera at 03/04/2020 1:44 PM.
--- NOTE | 2020-03-04 11:26 | ECG_ITS ---
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 Measurements Intervals [place] Rate: 71 P: 51 [place]: 195 QRS: 86 QRSD: 109 T: 74 QT: 378 QTc: 411 Interpretive Statements SINUS RHYTHM Compared to ECG 02/26/2020 21:30:22 Sinus tachycardia no longer present Electronically Signed On 03-05-2020 20:32:13 CDT by Terese Adler M.D. [id number]
[2020-03-04 11:49] LABS: ABG PCO2 36.8 mmHg (35-45); ABG PH Result 7.37 (7.35-7.45); Alveolar-Arterial Oxygen Gradi 2.3 mmHg (5-10); Base Excess ABG -3.6 mmol/L (-2.0-2.0); Blood Gas Allen Test Pos; Blood Gas Sample Type Arterial; Carboxyhemoglobin 0.8 %THgb (0.4-20.1); HCO3 ABG 21.2 mmol/L (22-26); Ionized Calcium Level - ABG 1.3 mmol/L (1.1-1.4); Methemoglobin 0.7 % (0.4-1.5); Oxygen Saturation ABG 97.5; PO2 ABG 85.6 mmHg (80.0-100.0); Potassium Level - ABG 4.5 mmol/L (3.5-5.0); Total Hemoglobin 14.4 g/dL (12-16)
[2020-03-04 11:50] LABS: Blood Gas Operator Identificat ED; Blood Gas Sample Site Radial, right
[2020-03-04 11:57] LABS: Basophils % 0.4 %; Eosinophils # 0.3 10^3/uL (0.0-0.8); Eosinophils % 2.3 %; Hemoglobin 14.6 g/dL (11.5-15.3); Lymphocytes # 2.9 10^3/uL (0.8-4.8); Lymphocytes % 27.3 %; Mean Corpuscular HGB Conc 31.1 g/dL (30.0-36.0); Mean Corpuscular Hemoglobin 29.6 pg (28.0-34.0); Mean Corpuscular Volume 95.3 fL (81-99); Mean Platelet Volume 9.8 fL (7.4-10.4); Monocytes # 0.8 10^3/uL (0.2-0.9); Monocytes % 7.4 %; Neutrophils # 6.66 10^3/uL (1.8-7.7); Nucleated Red Blood Cells % 0 %; Platelet Count 238 10^3/cmm (130-400); Red Blood Count 4.93 10^6/uL (4.1-5.3); Red Cell Distribution Width 12.9 % (12.1-15.1); White Blood Count 10.8 10^3/uL (4.0-10.0)
[2020-03-04] MEDS: meclizine 25 mg tablet PO (12:07)
[2020-03-04] MEDS: metoclopramide 5 mg/mL SDV 2 mL 10 MG IVP (12:07)
[2020-03-04] MEDS: diphenhydrAMINE 50 mg/mL SDV 1mL 12.5 MG IVP (12:08)
--- NOTE | 2020-03-04 12:08 | ED_ITS ---
HPI - Headache General: Chief Complaint: Headache Stated Complaint: HEADACHE/ N/V/ VERTIGO Time Seen by Provider: 03/04/20 11:17 Source: patient and EMS Mode of arrival: EMS Limitations: no limitations History of Present Illness: HPI Narrative: Kaylee is a 64-year-old female who comes in complaining of headache and dizziness along with nausea and vomiting. She states the symptoms were present upon her awakening this morning. She went to bed feeling fine. The patient states that the dizziness is intermittent and it is described as room spinning dizziness. It is made worse when she moves her head or body in certain positions. The headache is global in location. She describes this as a typical headache for her and she has had headaches this bad in the past. She denies any fever, neck pain or stiffness, skin rashes or other complaint. Patient states she is vomited 3 times but denies any abdominal pain or diarrhea. Patient states that the symptoms are similar to her headaches that she has had in the past. Associated symptoms: Deny chest pain, confusion, diaphoresis, fever(s), lightheadedness, malaise, nausea, pre-syncope, rash, syncope or vomiting Review of Systems Const: Denies: fever(s), chills, body aches, fatigue, malaise or diaphoresis Eyes: Denies: change in vision, blurry vision, photophobia, eye discomfort, eye discharge or eye redness ENMT: Denies: throat pain, odynophagia, hoarseness, swelling of lips/tongue, ear or mastoid pain, ear discharge, change in hearing or nasal discharge Card: Denies: chest pain, palpitations, irregular heart rhythm, edema, lightheadedness, syncope, pre-syncope, dyspnea on exertion or orthopnea Resp: Denies: dyspnea, productive cough, non-productive cough, wheezing, hemoptysis or chest congestion GI: Denies: abdominal pain, nausea, vomiting, hematemesis, coffee ground emesis, heartburn, diarrhea, constipation, GI cramping, hematochezia or melena : Denies: flank pain, dysuria, urinary frequency, urinary urgency or hematuria Musc: Denies: neck pain, back pain, extremity pain, extremity swelling, joint pain, joint swelling, joint redness, joint warmth or joint stiffness Skin/Breast: Denies: rash, pruritus, erythema or skin tenderness Neuro: Reports: headache(s), dizziness and vertigo; Denies: numbness in extremities, weakness in extremities, sensory changes, lack of coordination, difficulty walking, confusion, Slurred speech present or seizure-like activity Isidoro/Lymph: Denies: easy bruising, easy bleeding, petechiae, purpura or enlarged lymph nodes All/Imm: Denies: urticaria, throat swelling, tongue swelling, facial swelling or acute wheezing PFSH ED PFSH: Medical History Chronic diarrhea CVA (cerebral vascular accident) History of anemia History of anxiety History of aphasia History of bipolar disorder History of depression History of GI bleed History of hypothyroidism History of posttraumatic stress disorder (PTSD) Hx of kidney disease Hx of primary hypertension Hx of type 2 diabetes mellitus Hypothyroidism Tension headache, chronic TIA (transient ischemic attack) Surgical History History of back surgery Hx of appendectomy Hx of cholecystectomy Hx of hysterectomy Hx of neck surgery Social History Smoking and tobacco status: never smoked Physical Exam Const: COMMON NORMALS: no acute distress, patient oriented x3, no limitations, healthy appearing and well nourished GENERAL APPEARANCE: cooperative, well kempt and well developed HENMT: COMMON NORMALS: normocephalic, atraumatic, external ears normal, EAC's normal and Normal external nose present HEAD & SCALP: normal to inspection, normocephalic and atraumatic FACE & SINUS: normal facial exam and face symmetric NOSE: Normal external nose present and Normal nares present EXTERNAL EAR: Yes external ears normal EXTERNAL AUDITORY CANAL: EAC's normal MOUTH: Normal oral and palatal mucosa present, lip normal and tongue normal Eye: COMMON NORMALS: Equal, round and reactive pupils present and conjunctivae normal GENERAL EYE: appearance normal, both eyes and all related structures ALIGNMENT: Yes alignment normal PERIORBITAL: periorbital findings normal EYELID: eyelids normal CONJUNCTIVA: Yes conjunctivae normal SCLERA: sclerae normal PUPIL: Yes Equal, round and reactive pupils present Neck/C-Spine: COMMON NORMALS: full ROM, no lymphadenopathy, supple, no meningeal signs and no JVD GENERAL: Yes normal visual inspection and Yes trachea midline Chest: COMMONS NORMALS: normal inspection of the chest and normal palpation of entire chest wall Resp: COMMON NORMALS: normal respiratory effort, No retractions, No use of accessory muscles and clear to auscultation bilaterally EFFORT & INSPECTION: Yes able to speak in complete sentences and Yes symmetric chest movement AUSCULTATION: clear to auscultation bilaterally, no crackles, no rales, no rhonchi and no wheezes Cardio: COMMON NORMALS: no JVD, regular rate, regular rhythm, S1 normal heart sound present and S2 normal heart sound present RATE: regular rate RHYTHM: regular rhythm HEART SOUNDS: S1 normal heart sound present, S2 normal heart sound present, no click, no gallops, no murmurs, no rubs and abnormal split S2 GI: COMMON NORMALS: Soft to palpation and No hepatosplenomegaly present PALPATION: Yes Soft to palpation, No Tenderness to palpation present (GI), No Guarding due to palpation present (GI), No Rigid due to palpation, Yes No hepatosplenomegaly present, No Hernia present, No Palpable mass present and No Pulsatile mass present : COMMON NORMALS: Yes no CVA tenderness BLADDER/KIDNEY EXAM: Yes no CVA tenderness EXTERNAL FEMALE EXAM: No Hernia present Back/Pelvis: COMMON NORMALS: no CVA tenderness, thoracic and lumbar spine normal to inspection, no thoracic nor lumbar tenderness and thoraco-lumbar ROM normal Extremity: COMMON NORMALS: normal to inspection, full ROM, capillary refill normal, no joint enlargement, no clubbing, cyanosis or edema and no calf tenderness Neuro: COMMON NORMALS: patient oriented x3, CN's II-XII intact bilaterally, moves all extremities, no focal motor deficits and no sensory deficits noted MENINGEAL SIGNS: Yes no meningeal signs SPEECH: speech normal Psych: COMMON NORMALS: mental status grossly normal, Normal thought process present, cooperative, normal affect, speech normal and activity/motor behavior normal APPEARANCE: Yes well kempt SPEECH: Yes normal speech THOUGHT PROCESS: Normal thought process present Skin: COMMON NORMALS: no rashes or lesions noted, turgor normal, no jaundice, no petechiae and no mottling GENERAL SKIN EXAM: no rashes or lesions noted and turgor normal Course Vital Signs: Vital signs: Vital Signs Temperature 97.9 F 03/04/20 15:05 Pulse Rate 68 03/04/20 15:05 Respiratory Rate 18 03/04/20 15:05 Blood Pressure 131/71 03/04/20 15:05 Pulse Oximetry 95 03/04/20 15:05 MDM - Headache MDM Narrative: Medical decision making narrative: Arrival -Cathy is a 64-year-old female who comes in complaining of headache, dizziness along with nausea and vomiting upon awakening this morning. EMS reports a slightly elevated blood sugar but otherwise stable vital signs in route and her vital signs are stable here. Differentials considerable including migraine headaches, vertigo, CVA, among many others. Currently the patient's not in a TPA window as she woke up with the symptoms. We will go ahead and pursue work-up including NIH stroke scale, CTs and treatment for vertigo. Discharge, 1357 -the patient symptoms have resolved and she wants to go home. She states that she does not want to stay for any kind of cardiac work-up. She refuses to stay even for a second troponin. I have reviewed the case in full with Dr. Yusuf he states that the patient's not been doing well since her but he does not suspect any type of intent to hurt herself. He agrees to see the patient is office in follow-up. I have made the patient aware of the risks of or severe permanent disability by stroke or heart attack if she does leave but despite this the patient refuses to stay and wants to be discharged. She does not agree to stay for her second troponin either. Patient clearly has the capacity to make these decisions. She has GCS of 15 shows no sign of impairment. The patient understands risk but at this time she is feeling better and would just like to go home to be in her own bed. Medical Records: Attestation: I reviewed the patient's medical records. Medical records narrative: Admission and discharge including discharge on 02/27/2020 for altered mental status, acute respiratory failure and fall was reviewed. I cared for the patient on that admission in the ER. Patient appears much more alert and oriented at this time than she did at that time. Lab Data: Labs: Lab Results 03/04/20 03/04/20 03/04/20 Range/Units 11:39 11:45 11:45 WBC 10.8 H (4.0-10.0) 10^3/ uL RBC 4.93 (4.1-5.3) 10^6/u L Hgb 14.6 (11.5-15.3) g/dL Hct 47.0 (37.0-47.0) % MCV 95.3 (81-99) fL MCH 29.6 (28.0-34.0) pg MCHC 31.1 (30.0-36.0) g/dL RDW 12.9 (12.1-15.1) % Plt Count 238 (130-400) 10^3/c mm MPV 9.8 (7.4-10.4) fL Neut % (Auto) 62.0 % Lymph % (Auto) 27.3 % [place] % (Auto) 7.4 % Eos % (Auto) 2.3 % Baso % (Auto) 0.4 % Neut # (Auto) 6.66 (1.8-7.7) 10^3/u L Lymph # (Auto) 2.9 (0.8-4.8) 10^3/u L [place] # (Auto) 0.8 (0.2-0.9) 10^3/u L Eos # (Auto) 0.3 (0.0-0.8) 10^3/u L Baso # (Auto) 0.0 (0.0-0.1) 10^3/u L Nucleated RBC % (a uto) 0 % Nucleated RBCs # 0.0 /100WBC PT Cancelled INR Cancelled Specimen Type Arterial Sample Site Radial, right ABG pH 7.37 (7.35-7.45) ABG pCO2 36.8 (35-45) mmHg ABG pO2 85.6 (80.0-100.0) mmH g ABG HCO3 21.2 L (22-26) mmol/L ABG O2 Saturation 97.5 ABG Base Excess -3.6 L (-2.0-2.0) mmol/ L Chaz Test Pos A-a O2 Gradient 2.3 L (5-10) mmHg Hematocrit 44.0 (37-47) % Hgb O2 Saturation 96.0 (95-100) % Carboxyhemoglobin 0.8 (0.4-20.1) %THgb Methemoglobin 0.7 (0.4-1.5) % Total Hemoglobin 14.4 (12-16) g/dL Sodium 135.0 (131-143) mmol/L Potassium 4.5 (3.5-5.0) mmol/L Glucose 208.0 H (70-115) mg/dL Ionized Calcium 1.3 (1.1-1.4) mmol/L O2 Delivery Device None FiO2 21.0 % [facility] ID Ed Chloride (98-107) mmol/L Carbon Dioxide (22-29) mmol/L Anion Gap (5-19) BUN (8-23) mg/dL Creatinine (0.5-0.9) mg/dL GFR Calculation (90-130) mL/min Calculated Osmolal ity (285-295) mOsm/k g Calcium (8.5-10.5) mg/dL Magnesium (1.7-2.3) mg/dL Total Bilirubin (0.15-1.2) mg/dL AST (0-32) U/L ALT (0-33) U/L Alkaline Phosphata se (35-105) IU/L Ammonia (11-51) umol/L Troponin T Baselin e (0-10) ng/L Troponin T 120 Min bijal (0-10) ng/L Delta Troponin T (0-10) ABS# Total Protein (6.6-8.7) g/dL Albumin (3.5-5.2) g/dL Globulin (1.3-4.6) g/dL Urine Color (Yellow) Urine Appearance (CLEAR) Urine pH (5-7) Ur Specific Gravit y (1.005-1.030) Urine Protein (Negative) Urine Glucose (UA) (Normal) Urine Ketones (Negative) Urine Blood (Negative) Urine Nitrate (Negative) Urine Bilirubin (NEGATIVE) Urine Urobilinogen (Negative) mg/dL Ur Leukocyte Yoko ase (Negative) Urine Opiates Scre en (Negative) ng/mL Ur Barbiturates Sc reen (Negative) ng/mL Ur Phencyclidine S crn (Negative) ng/mL Ur Amphetamines Sc reen (Negative) ng/mL U Benzodiazepines Scrn (Negative) ng/mL Urine Cocaine Scre en (Negative) ng/mL U Marijuana (THC) Screen (Negative) ng/mL Ethyl Alcohol (0-10) mg/dL 03/04/20 03/04/20 03/04/20 Range/Units 11:45 11:45 11:45 WBC (4.0-10.0) 10^3/ uL RBC (4.1-5.3) 10^6/u L Hgb (11.5-15.3) g/dL Hct (37.0-47.0) % MCV (81-99) fL MCH (28.0-34.0) pg MCHC (30.0-36.0) g/dL RDW (12.1-15.1) % Plt Count (130-400) 10^3/c mm MPV (7.4-10.4) fL Neut % (Auto) % Lymph % (Auto) % [place] % (Auto) % Eos % (Auto) % Baso % (Auto) % Neut # (Auto) (1.8-7.7) 10^3/u L Lymph # (Auto) (0.8-4.8) 10^3/u L [place] # (Auto) (0.2-0.9) 10^3/u L Eos # (Auto) (0.0-0.8) 10^3/u L Baso # (Auto) (0.0-0.1) 10^3/u L Nucleated RBC % (a uto) % Nucleated RBCs # /100WBC PT INR Specimen Type Sample Site ABG pH (7.35-7.45) ABG pCO2 (35-45) mmHg ABG pO2 (80.0-100.0) mmH g ABG HCO3 (22-26) mmol/L ABG O2 Saturation ABG Base Excess (-2.0-2.0) mmol/ L Chaz Test A-a O2 Gradient (5-10) mmHg Hematocrit (37-47) % Hgb O2 Saturation (95-100) % Carboxyhemoglobin (0.4-20.1) %THgb Methemoglobin (0.4-1.5) % Total Hemoglobin (12-16) g/dL Sodium 132 L (131-143) mmol/L Potassium 4.3 (3.5-5.0) mmol/L Glucose 209 H (70-115) mg/dL Ionized Calcium (1.1-1.4) mmol/L O2 Delivery Device FiO2 % [facility] [employer] [facility] ID Chloride 97 L (98-107) mmol/L Carbon Dioxide 24 (22-29) mmol/L Anion Gap 15.3 (5-19) BUN 12 (8-23) mg/dL Creatinine 0.9 (0.5-0.9) mg/dL GFR Calculation 62.8 L (90-130) mL/min Calculated Osmolal ity 276 L (285-295) mOsm/k g Calcium 10.0 (8.5-10.5) mg/dL Magnesium 1.9 (1.7-2.3) mg/dL Total Bilirubin 0.2 (0.15-1.2) mg/dL AST 27 (0-32) U/L ALT 43 H (0-33) U/L Alkaline Phosphata se 113 H (35-105) IU/L Ammonia 21 (11-51) umol/L Troponin T Baselin e 10 (0-10) ng/L Troponin T 120 Min bijal (0-10) ng/L Delta Troponin T (0-10) ABS# Total Protein 7.5 (6.6-8.7) g/dL Albumin 4.2 (3.5-5.2) g/dL Globulin 3.3 (1.3-4.6) g/dL Urine Color (Yellow) Urine Appearance (CLEAR) Urine pH (5-7) Ur Specific Gravit y (1.005-1.030) Urine Protein (Negative) Urine Glucose (UA) (Normal) Urine Ketones (Negative) Urine Blood (Negative) Urine Nitrate (Negative) Urine Bilirubin (NEGATIVE) Urine Urobilinogen (Negative) mg/dL Ur Leukocyte Yoko ase (Negative) Urine Opiates Scre en (Negative) ng/mL Ur Barbiturates Sc reen (Negative) ng/mL Ur Phencyclidine S crn (Negative) ng/mL Ur Amphetamines Sc reen (Negative) ng/mL U Benzodiazepines Scrn (Negative) ng/mL Urine Cocaine Scre en (Negative) ng/mL U Marijuana (THC) Screen (Negative) ng/mL Ethyl Alcohol < 10 (0-10) mg/dL 03/04/20 03/04/20 03/04/20 Range/Units 12:00 12:00 12:32 WBC (4.0-10.0) 10^3/ uL RBC (4.1-5.3) 10^6/u L Hgb (11.5-15.3) g/dL Hct (37.0-47.0) % MCV (81-99) fL MCH (28.0-34.0) pg MCHC (30.0-36.0) g/dL RDW (12.1-15.1) % Plt Count (130-400) 10^3/c mm MPV (7.4-10.4) fL Neut % (Auto) % Lymph % (Auto) % [place] % (Auto) % Eos % (Auto) % Baso % (Auto) % Neut # (Auto) (1.8-7.7) 10^3/u L Lymph # (Auto) (0.8-4.8) 10^3/u L [place] # (Auto) (0.2-0.9) 10^3/u L Eos # (Auto) (0.0-0.8) 10^3/u L Baso # (Auto) (0.0-0.1) 10^3/u L Nucleated RBC % (a uto) % Nucleated RBCs # /100WBC PT 12.30 INR 0.89 Specimen Type Sample Site ABG pH (7.35-7.45) ABG pCO2 (35-45) mmHg ABG pO2 (80.0-100.0) mmH g ABG HCO3 (22-26) mmol/L ABG O2 Saturation ABG Base Excess (-2.0-2.0) mmol/ L Chaz Test A-a O2 Gradient (5-10) mmHg Hematocrit (37-47) % Hgb O2 Saturation (95-100) % Carboxyhemoglobin (0.4-20.1) %THgb Methemoglobin (0.4-1.5) % Total Hemoglobin (12-16) g/dL Sodium (131-143) mmol/L Potassium (3.5-5.0) mmol/L Glucose (70-115) mg/dL Ionized Calcium (1.1-1.4) mmol/L O2 Delivery Device FiO2 % [facility] [employer] [facility] ID Chloride (98-107) mmol/L Carbon Dioxide (22-29) mmol/L Anion Gap (5-19) BUN (8-23) mg/dL Creatinine (0.5-0.9) mg/dL GFR Calculation (90-130) mL/min Calculated Osmolal ity (285-295) mOsm/k g Calcium (8.5-10.5) mg/dL Magnesium (1.7-2.3) mg/dL Total Bilirubin (0.15-1.2) mg/dL AST (0-32) U/L ALT (0-33) U/L Alkaline Phosphata se (35-105) IU/L Ammonia (11-51) umol/L Troponin T Baselin e (0-10) ng/L Troponin T 120 Min bijal (0-10) ng/L Delta Troponin T (0-10) ABS# Total Protein (6.6-8.7) g/dL Albumin (3.5-5.2) g/dL Globulin (1.3-4.6) g/dL Urine Color Yellow (Yellow) Urine Appearance Clear (CLEAR) Urine pH 7 (5-7) Ur Specific Gravit y 1.010 (1.005-1.030) Urine Protein Neg (Negative) Urine Glucose (UA) Norm (Normal) Urine Ketones Negative (Negative) Urine Blood Neg (Negative) Urine Nitrate Negative (Negative) Urine Bilirubin Neg (NEGATIVE) Urine Urobilinogen Norm (Negative) mg/dL Ur Leukocyte Yoko ase Negative (Negative) Urine Opiates Scre en Positive H (Negative) ng/mL Ur Barbiturates Sc reen Negative (Negative) ng/mL Ur Phencyclidine S crn Negative (Negative) ng/mL Ur Amphetamines Sc reen Negative (Negative) ng/mL U Benzodiazepines Scrn Positive H (Negative) ng/mL Urine Cocaine Scre en Negative (Negative) ng/mL U Marijuana (THC) Screen Negative (Negative) ng/mL Ethyl Alcohol (0-10) mg/dL 03/04/20 Range/Units 13:49 WBC (4.0-10.0) 10^3/ uL RBC (4.1-5.3) 10^6/u L Hgb (11.5-15.3) g/dL Hct (37.0-47.0) % MCV (81-99) fL MCH (28.0-34.0) pg MCHC (30.0-36.0) g/dL RDW (12.1-15.1) % Plt Count (130-400) 10^3/c mm MPV (7.4-10.4) fL Neut % (Auto) % Lymph % (Auto) % [place] % (Auto) % Eos % (Auto) % Baso % (Auto) % Neut # (Auto) (1.8-7.7) 10^3/u L Lymph # (Auto) (0.8-4.8) 10^3/u L [place] # (Auto) (0.2-0.9) 10^3/u L Eos # (Auto) (0.0-0.8) 10^3/u L Baso # (Auto) (0.0-0.1) 10^3/u L Nucleated RBC % (a uto) % Nucleated RBCs # /100WBC PT INR Specimen Type Sample Site ABG pH (7.35-7.45) ABG pCO2 (35-45) mmHg ABG pO2 (80.0-100.0) mmH g ABG HCO3 (22-26) mmol/L ABG O2 Saturation ABG Base Excess (-2.0-2.0) mmol/ L Chaz Test A-a O2 Gradient (5-10) mmHg Hematocrit (37-47) % Hgb O2 Saturation (95-100) % Carboxyhemoglobin (0.4-20.1) %THgb Methemoglobin (0.4-1.5) % Total Hemoglobin (12-16) g/dL Sodium (131-143) mmol/L Potassium (3.5-5.0) mmol/L Glucose (70-115) mg/dL Ionized Calcium (1.1-1.4) mmol/L O2 Delivery Device FiO2 % [facility] [employer] [facility] ID Chloride (98-107) mmol/L Carbon Dioxide (22-29) mmol/L Anion Gap (5-19) BUN (8-23) mg/dL Creatinine (0.5-0.9) mg/dL GFR Calculation (90-130) mL/min Calculated Osmolal ity (285-295) mOsm/k g Calcium (8.5-10.5) mg/dL Magnesium (1.7-2.3) mg/dL Total Bilirubin (0.15-1.2) mg/dL AST (0-32) U/L ALT (0-33) U/L Alkaline Phosphata se (35-105) IU/L Ammonia (11-51) umol/L Troponin T Baselin e (0-10) ng/L Troponin T 120 Min bijal 7.90 (0-10) ng/L Delta Troponin T -2.10 L (0-10) ABS# Total Protein (6.6-8.7) g/dL Albumin (3.5-5.2) g/dL Globulin (1.3-4.6) g/dL Urine Color (Yellow) Urine Appearance (CLEAR) Urine pH (5-7) Ur Specific Gravit y (1.005-1.030) Urine Protein (Negative) Urine Glucose (UA) (Normal) Urine Ketones (Negative) Urine Blood (Negative) Urine Nitrate (Negative) Urine Bilirubin (NEGATIVE) Urine Urobilinogen (Negative) mg/dL Ur Leukocyte Yoko ase (Negative) Urine Opiates Scre en (Negative) ng/mL Ur Barbiturates Sc reen (Negative) ng/mL Ur Phencyclidine S crn (Negative) ng/mL Ur Amphetamines Sc reen (Negative) ng/mL U Benzodiazepines Scrn (Negative) ng/mL Urine Cocaine Scre en (Negative) ng/mL U Marijuana (THC) Screen (Negative) ng/mL Ethyl Alcohol (0-10) mg/dL Imaging Data^: CXR: My impression: No acute cardiopulmonary findings. EKG Data^: EKG 1: Attestation: I personally reviewed and interpreted this EKG as follows: EKG interpretation date: 03/04/20 EKG interpretation time: 11:49 Interpretation: Normal sinus rhythm at 71 beats a minute, nonspecific T wave findings in aVL, all other findings unremarkable. EKG 2: Attestation: I personally reviewed and interpreted this EKG as follows: EKG interpretation date: 03/04/20 EKG interpretation time: 13:23 Interpretation: Normal sinus rhythm at 65 beats a minute, first-degree AV block, otherwise normal intervals, no acute ST or T wave changes. Discharge Plan Discharge Patient Disposition: Home Clinical Impression: Vertigo Headache Qualifiers: Headache type: unspecified Headache chronicity pattern: acute headache Intractability: not intractable Qualified Code(s): R51 - Headache Condition: Stable Prescriptions: No Action potassium chloride 20 mEq tablet extended release 20 meq PO DAILY RF: 0 metformin 1,000 mg tablet 1,000 mg PO BID RF: 0 levothyroxine 75 mcg capsule 75 mcg PO DAILY RF: 0 pregabalin [Lyrica] 50 mg capsule 50 mg PO BID RF: 0 omeprazole 20 mg tablet,delayed release (DR/EC) 20 mg PO BID RF: 0 Folbic 2.5-25-2 mg tablet 1 tab PO DAILY RF: 0 propranolol 80 mg capsule,extended release 24 hr 80 mg PO BID RF: 0 oxybutynin chloride 5 mg tablet 5 mg PO BID RF: 0 duloxetine 60 mg capsule,delayed release(DR/EC) 120 mg PO DAILY RF: 0 lamotrigine 200 mg tablet 200 mg PO BID RF: 0 aspirin [Adult Low Dose Aspirin] 81 mg tablet,delayed release (DR/EC) 81 mg PO DAILY RF: 0 quetiapine 100 mg tablet 100 mg PO DAILY RF: 0 diazepam 10 mg tablet 20 mg PO DAILY PRN (Reason: Anxiety) RF: 0 Lantus U-100 Insulin 100 unit/mL solution 40 unit SUBCUT DAILY RF: 0 (DME) crutches Qty: 1 RF: 0 (DME) Crutches Qty: 1 RF: 0 (DME) ORTHO WEDGE Qty: 1 RF: 0 (DME) Ortho Wedge Shoe Qty: 1 RF: 0 hydrocodone-acetaminophen 5-325 mg tablet 1 tab PO Q6H PRN (Reason: pain) Qty: 10 RF: 0 glimepiride 4 mg tablet 4 mg PO BID RF: 0 Discharge Orders: Discharge Order (Routine); Ordered 03/04/20 Ordered By: Mattie Mosquera Referrals: Carter Yusuf MD [Primary Care Provider] - 1-3 days Discharge Diet: Advance as tolerated Discharge Activity: Increase activity as tolerated Patient Instructions: Vertigo (ED), Acute Headache (ED), Benign Paroxysmal Positional Vertigo (ED), Dizziness (ED) Activity Restrictions/Additional Instructions: Please return to the ER immediately for any of the signs or symptoms listed on your discharge instruction sheets, worsening/changing of your symptoms, you are not getting better as quickly as expected, or for ANY other cause or concerns. I have recommended and offered further evaluation and care here of your dizziness and your chest pain but you have refused. Of course any type of heart problem can be life-threatening and your symptoms of dizziness could be related to stroke as well. Both of these problems can be acutely life-threatening. If you change your mind, your symptoms return, or you develop any other symptoms or you simply change your mind you are more than welcome to return to the ER for recheck. I have reviewed your case by phone with Dr. Yusuf and he wants you to follow-up in his office tomorrow or Sunday at the latest. Be certain to call today for that appointment. Discharge Date/Time: 03/04/20 15:07 Coding Level of Care Code ED Paginator for Jaret Fwd Exam Comprehensive NIH stroke score NIHSS Level Of Consciousness - 1a: 0 Level Of Consciousness Questions - 1b: Both Correct Level Of Consciousness Commands - 1c: Both Correct Best Gaze - 2: Normal Visual Burnett - 3: No Visual Loss Facial Palsy - 4: Normal Motor Arm Right - 5: No Drift Motor Arm Left - 5: No Drift Motor Leg Right - 6: No Drift Motor Leg Left - 6: No Drift Limb Ataxia - 7: Absent Sensory - 8: Normal Best Language - 9: No Aphasia Dysarthia - 10: Normal Extinction And Inattention - 11: 0 Score Total Score: 0
[2020-03-04] MEDS: sodium chloride 0.9% 1,000 ML 999 ML IV (12:10)
[2020-03-04 12:13] LABS: Ammonia 21 umol/L (11-51)
[2020-03-04 12:18] LABS: Alanine Aminotransferase 43 U/L (0-33); Albumin Level 4.2 g/dL (3.5-5.2); Alkaline Phosphatase 113 IU/L (35-105); Anion Gap 15.3 (5-19); Aspartate Amino Transferase 27 U/L (0-32); Blood Urea Nitrogen 12 mg/dL (8-23); Carbon Dioxide 24 mmol/L (22-29); Chloride 97 mmol/L (98-107); Globulin 3.3 g/dL (1.3-4.6); Glomerular Filtration Rate 62.8 mL/min (90-130); Glucose 209 mg/dL (65-115); Magnesium 1.9 mg/dL (1.7-2.3); Osmolality Calculated 276 mOsm/kg (285-295); Potassium 4.3 mmol/L (3.5-5.1); Sodium 132 mmol/L (136-145); Total Bilirubin 0.2 mg/dL (0.15-1.2); Total Protein 7.5 g/dL (6.6-8.7)
[2020-03-04 12:20] LABS: Troponin(5th) Baseline 10 ng/L (0-10)
[2020-03-04 12:29] LABS: Alcohol Level < 10 mg/dL (0-10)
[2020-03-04 12:30] LABS: Add Urine Microscopic? NO
[2020-03-04 12:46] LABS: Amphetamines Screen Urine Negative (Negative); Barbiturates Screen Urine Negative (Negative); Benzodiazepines Screen Urine Positive (Negative); Cocaine Screen Urine Negative (Negative); Opiate Screen Urine Positive (Negative); PCP Screen Urine Negative (Negative); THC Screen Urine Negative (Negative)
[2020-03-04 12:51] VITALS: BP 142/70; PULSE 76; RESP 18; O2SAT 95
[2020-03-04 13:00] LABS: INR 0.89 (0.8-1.2)
[2020-03-04] MEDS: iohexol 350 mg/mL 100 mL Btl IV (13:00)
[2020-03-04 13:07] LABS: Bilirubin Urine Neg (NEGATIVE); Blood Urine Neg (Negative); Glucose Urine UA Norm (Normal); Ketones Urine Negative (Negative); Leukocyte Esterase Urine Negative (Negative); Nitrate Urine Negative (Negative); Protein Urine Neg (Negative); Urine Appearance Clear (CLEAR); Urine Color Yellow (Yellow); Urobilinogen Urine Norm (Negative); pH Urine 7 (5-7)
[2020-03-04] MEDS: sodium chloride 0.9% 1,000 ML 100 ML IV (13:23)
[2020-03-04 13:24] VITALS: BP 121/63; PULSE 66; RESP 18; O2SAT 96
--- NOTE | 2020-03-04 13:26 | ECG_ITS ---
[facility] Test Date: 2020-03-04 Pat Name: Kaylee Ch Department: Room: Gender: Female Gut Dropper: : 1955 Requested By: Mattie Hooper Order Number: [id number] Yasmine MD: Terese Adler M.D. Measurements Intervals [place] Rate: 65 P: 68 MO: 210 QRS: 85 QRSD: 106 T: 88 QT: 413 QTc: 432 Interpretive Statements SINUS RHYTHM WITH FIRST DEGREE AV BLOCK Compared to ECG 02/26/2020 21:30:22 First degree AV block now present Sinus tachycardia no longer present Electronically Signed On 03-05-2020 20:56:32 CDT by Terese Adler M.D. [id number] [email or web address]
[2020-03-04 15:05] VITALS: BP 131/71; PULSE 68; RESP 18; TEMP 36.6; O2SAT 95
== END 2020-03-04 15:07 | disposition home or self-care (01) ==
PROVIDERS: Emergency Provider Emergency Medicine; PCP Family Medicine
DX: R42 Dizziness and giddiness (principal); R51 Headache; Z79.82 Long term (current) use of aspirin; Z79.4 Long term (current) use of insulin; Z86.73 Personal history of transient ischemic attack (TIA), and cerebral infarction without residual deficits; E11.9 Type 2 diabetes mellitus without complications; Z79.899 Other long term (current) drug therapy
CPT/HCPCS: 12345; 36415; 36600; 70450; 70496; 70498; 71045; 80051; 80053; 80306; 80307; 81003; 82140; 82810; 83735; 83986; 84484; 85025; 85610; 93005; 96361; 96374; 96375; 99284; J1200; J2765; J7030; J8597; Q9967

== ENCOUNTER 2020-03-06 23:18 | Emergency (ER) | payer MEDICARE, OTHER, SELFPAY ==
[2020-03-06 22:41] VITALS: BP 154/77; PULSE 89; RESP 17; TEMP 36.7; O2SAT 96; BMI 30.7
--- NOTE | 2020-03-06 22:53 | W.ED.FALL ---
HPI - Fall General: Chief Complaint: Fall Stated Complaint: FALL Source: patient Mode of arrival: ambulatory Limitations: no limitations History of Present Illness: HPI Narrative: 64-year-old female comes in for a fall. Patient states that she was coming up the hallway using her walker and slipped and fell off the seat of her walker falling forward. Patient reports difficulty walking due to numbness in her lower extremities. Patient's brother reports that she recently has seemed to be more confused since being started on new medication to help with sleep. Brother does not know which medication was that she was started on. Patient appears well. Patient is able to move extremities without difficulty. Review of Systems General: Reports: 10 or more systems reviewed and unremarkable except in HPI and below Musc: Reports: other (lower extremity numbness) PFSH ED PFSH: Medical History (Updated 03/07/20 @ 01:22 by LIGIA Caro) Chronic diarrhea CVA (cerebral vascular accident) History of anemia History of anxiety History of aphasia History of bipolar disorder History of depression History of GI bleed History of hypothyroidism History of posttraumatic stress disorder (PTSD) Hx of kidney disease Hx of primary hypertension Hx of type 2 diabetes mellitus Hypothyroidism Tension headache, chronic TIA (transient ischemic attack) Surgical History History of back surgery Hx of appendectomy Hx of cholecystectomy Hx of hysterectomy Hx of neck surgery Social History Smoking and tobacco status: never smoked Physical Exam Const: COMMON NORMALS: no acute distress and patient oriented x3 GENERAL APPEARANCE: cooperative HENMT: COMMON NORMALS: normocephalic and Normal external nose present HEAD & SCALP: normal to inspection and normocephalic NOSE: Normal external nose present MOUTH: Normal oral and palatal mucosa present Eye: GENERAL EYE: appearance normal, both eyes and all related structures Neck/C-Spine: COMMON NORMALS: full ROM Chest: COMMONS NORMALS: normal inspection of the chest Resp: COMMON NORMALS: normal respiratory effort EFFORT & INSPECTION: Yes able to speak in complete sentences Cardio: COMMON NORMALS: regular rate and regular rhythm RATE: regular rate RHYTHM: regular rhythm GI: COMMON NORMALS: non-tender : COMMON NORMALS: Yes no CVA tenderness BLADDER/KIDNEY EXAM: Yes no CVA tenderness Back/Pelvis: COMMON NORMALS: no CVA tenderness and thoracic and lumbar spine normal to inspection Extremity: COMMON NORMALS: normal to inspection Neuro: COMMON NORMALS: patient oriented x3 and moves all extremities Psych: COMMON NORMALS: mental status grossly normal and cooperative Skin: COMMON NORMALS: no rashes or lesions noted GENERAL SKIN EXAM: no rashes or lesions noted Course Vital Signs: Vital signs: Vital Signs Temperature 98.1 F 03/06/20 22:41 Pulse Rate 74 03/07/20 01:09 Respiratory Rate 16 03/06/20 23:19 Blood Pressure 144/81 03/07/20 01:09 Pulse Oximetry 95 03/06/20 23:19 MDM - Fall MDM Narrative: Medical decision making narrative: Patient comes in today after falling at home. Patient states that she slipped on a towel while walking back from the bathroom. Patient does use a walker. Patient also states that she recently put on some nortriptyline she felt caused her to be more confused. Patient moves extremities well. Patient does have some loss of sensation in the lower extremities. Palpation of the spine indicates no tenderness or pain. Vital signs are normal. Differential diagnosis includes but not limited to adverse drug effect, diabetic neuropathy, intracranial process. Laboratory values were unremarkable. Patient did have some elevation in lactate this is probably related to her metformin use. Urinalysis was unremarkable. CT of the head and lumbar spine indicated no acute injury. Patient was able to ambulate with walker with mild unsteadiness of gait. I offered to admit patient but she wished to go home and her brother reported that he felt comfortable with her going home. Her brothers checks on her routinely. I recommended stopping the nortriptyline and following up with her primary care for further evaluation of her medications in order to limit the number of meds she takes daily. Patient reports understanding of care plan and need for follow-up. Lab Data: Labs: Lab Results 03/06/20 03/06/20 03/06/20 Range/Units 00:21 23:15 23:15 WBC 8.9 (4.0-10.0) 10^3/ uL RBC 4.49 (4.1-5.3) 10^6/u L Hgb 13.0 (11.5-15.3) g/dL Hct 43.0 (37.0-47.0) % MCV 95.8 (81-99) fL MCH 29.0 (28.0-34.0) pg MCHC 30.2 (30.0-36.0) g/dL RDW 12.7 (12.1-15.1) % Plt Count 249 (130-400) 10^3/c mm MPV 9.7 (7.4-10.4) fL Neut % (Auto) 51.7 % Lymph % (Auto) 36.4 % [place] % (Auto) 8.5 % Eos % (Auto) 2.4 % Baso % (Auto) 0.3 % Neut # (Auto) 4.61 (1.8-7.7) 10^3/u L Lymph # (Auto) 3.3 (0.8-4.8) 10^3/u L [place] # (Auto) 0.8 (0.2-0.9) 10^3/u L Eos # (Auto) 0.2 (0.0-0.8) 10^3/u L Baso # (Auto) 0.0 (0.0-0.1) 10^3/u L Nucleated RBC % (a uto) 0 % Nucleated RBCs # 0.0 /100WBC Specimen Type Arterial Sample Site Brachial, left ABG pH 7.33 L (7.35-7.45) ABG pCO2 41.1 (35-45) mmHg ABG pO2 79.4 L (80.0-100.0) mmH g ABG HCO3 21.8 L (22-26) mmol/L ABG Base Excess -3.9 L (-2.0-2.0) mmol/ L Chaz Test N/a Hematocrit 43.5 (37-47) % O2 Delivery Device Room air Flavoring Machine Operator ID [email or web address] Sodium 136 (136-145) mmol/L Potassium 4.2 (3.5-5.1) mmol/L Chloride 100 (98-107) mmol/L Carbon Dioxide 23 (22-29) mmol/L Anion Gap 17.2 (5-19) BUN 12 (8-23) mg/dL Creatinine 0.8 (0.5-0.9) mg/dL GFR Calculation 72.0 L (90-130) mL/min Glucose 195 H (65-115) mg/dL Calculated Osmolal ity 283 L (285-295) mOsm/k g Lactic Acid (0.5-2.2) mmol/L Calcium 9.1 (8.5-10.5) mg/dL Total Bilirubin 0.2 (0.15-1.2) mg/dL AST 26 (0-32) U/L ALT 44 H (0-33) U/L Alkaline Phosphata se 99 (35-105) IU/L Troponin T Gen 5 n g/L (0-10) ng/L Total Protein 6.7 (6.6-8.7) g/dL Albumin 4.0 (3.5-5.2) g/dL Globulin 2.7 (1.3-4.6) g/dL Urine Color (Yellow) Urine Appearance (CLEAR) Urine pH (5-7) Ur Specific Gravit y (1.005-1.030) Urine Protein (Negative) Urine Glucose (UA) (Normal) Urine Ketones (Negative) Urine Blood (Negative) Urine Nitrate (Negative) Urine Bilirubin (NEGATIVE) Urine Urobilinogen (Negative) mg/dL Ur Leukocyte Yoko ase (Negative) Urine RBC (0-2) /hpf Urine WBC (0-5) /hpf Ur Squamous Epith Cells (0-5) Amorphous Sediment Urine Bacteria (NONE) Urine Opiates Scre en (Negative) ng/mL Ur Barbiturates Sc reen (Negative) ng/mL Ur Phencyclidine S crn (Negative) ng/mL Ur Amphetamines Sc reen (Negative) ng/mL U Benzodiazepines Scrn (Negative) ng/mL Urine Cocaine Scre en (Negative) ng/mL U Marijuana (THC) Screen (Negative) ng/mL Ethyl Alcohol < 10 (0-10) mg/dL 03/06/20 03/06/20 03/06/20 Range/Units 23:15 23:15 23:33 WBC (4.0-10.0) 10^3/ uL RBC (4.1-5.3) 10^6/u L Hgb (11.5-15.3) g/dL Hct (37.0-47.0) % MCV (81-99) fL MCH (28.0-34.0) pg MCHC (30.0-36.0) g/dL RDW (12.1-15.1) % Plt Count (130-400) 10^3/c mm MPV (7.4-10.4) fL Neut % (Auto) % Lymph % (Auto) % [place] % (Auto) % Eos % (Auto) % Baso % (Auto) % Neut # (Auto) (1.8-7.7) 10^3/u L Lymph # (Auto) (0.8-4.8) 10^3/u L [place] # (Auto) (0.2-0.9) 10^3/u L Eos # (Auto) (0.0-0.8) 10^3/u L Baso # (Auto) (0.0-0.1) 10^3/u L Nucleated RBC % (a uto) % Nucleated RBCs # /100WBC Specimen Type Sample Site ABG pH (7.35-7.45) ABG pCO2 (35-45) mmHg ABG pO2 (80.0-100.0) mmH g ABG HCO3 (22-26) mmol/L ABG Base Excess (-2.0-2.0) mmol/ L Chaz Test Hematocrit (37-47) % O2 Delivery Device Flavoring Machine Operator ID Sodium (136-145) mmol/L Potassium (3.5-5.1) mmol/L Chloride (98-107) mmol/L Carbon Dioxide (22-29) mmol/L Anion Gap (5-19) BUN (8-23) mg/dL Creatinine (0.5-0.9) mg/dL GFR Calculation (90-130) mL/min Glucose (65-115) mg/dL Calculated Osmolal ity (285-295) mOsm/k g Lactic Acid 3.2 H (0.5-2.2) mmol/L Calcium (8.5-10.5) mg/dL Total Bilirubin (0.15-1.2) mg/dL AST (0-32) U/L ALT (0-33) U/L Alkaline Phosphata se (35-105) IU/L Troponin T Gen 5 n g/L 12 H (0-10) ng/L Total Protein (6.6-8.7) g/dL Albumin (3.5-5.2) g/dL Globulin (1.3-4.6) g/dL Urine Color Yellow (Yellow) Urine Appearance Clear (CLEAR) Urine pH 7 (5-7) Ur Specific Gravit y 1.005 (1.005-1.030) Urine Protein Neg (Negative) Urine Glucose (UA) Norm (Normal) Urine Ketones Negative (Negative) Urine Blood Neg (Negative) Urine Nitrate Negative (Negative) Urine Bilirubin Neg (NEGATIVE) Urine Urobilinogen Norm (Negative) mg/dL Ur Leukocyte Yoko ase 1+ H (Negative) Urine RBC 0-4 H (0-2) /hpf Urine WBC 5-10 H (0-5) /hpf Ur Squamous Epith Cells 15-25 H (0-5) Amorphous Sediment Not Reportable Urine Bacteria Trace (NONE) Urine Opiates Scre en (Negative) ng/mL Ur Barbiturates Sc reen (Negative) ng/mL Ur Phencyclidine S crn (Negative) ng/mL Ur Amphetamines Sc reen (Negative) ng/mL U Benzodiazepines Scrn (Negative) ng/mL Urine Cocaine Scre en (Negative) ng/mL U Marijuana (THC) Screen (Negative) ng/mL Ethyl Alcohol (0-10) mg/dL 03/06/20 Range/Units 23:33 WBC (4.0-10.0) 10^3/ uL RBC (4.1-5.3) 10^6/u L Hgb (11.5-15.3) g/dL Hct (37.0-47.0) % MCV (81-99) fL MCH (28.0-34.0) pg MCHC (30.0-36.0) g/dL RDW (12.1-15.1) % Plt Count (130-400) 10^3/c mm MPV (7.4-10.4) fL Neut % (Auto) % Lymph % (Auto) % [place] % (Auto) % Eos % (Auto) % Baso % (Auto) % Neut # (Auto) (1.8-7.7) 10^3/u L Lymph # (Auto) (0.8-4.8) 10^3/u L [place] # (Auto) (0.2-0.9) 10^3/u L Eos # (Auto) (0.0-0.8) 10^3/u L Baso # (Auto) (0.0-0.1) 10^3/u L Nucleated RBC % (a uto) % Nucleated RBCs # /100WBC Specimen Type Sample Site ABG pH (7.35-7.45) ABG pCO2 (35-45) mmHg ABG pO2 (80.0-100.0) mmH g ABG HCO3 (22-26) mmol/L ABG Base Excess (-2.0-2.0) mmol/ L Chaz Test Hematocrit (37-47) % O2 Delivery Device Flavoring Machine Operator ID Sodium (136-145) mmol/L Potassium (3.5-5.1) mmol/L Chloride (98-107) mmol/L Carbon Dioxide (22-29) mmol/L Anion Gap (5-19) BUN (8-23) mg/dL Creatinine (0.5-0.9) mg/dL GFR Calculation (90-130) mL/min Glucose (65-115) mg/dL Calculated Osmolal ity (285-295) mOsm/k g Lactic Acid (0.5-2.2) mmol/L Calcium (8.5-10.5) mg/dL Total Bilirubin (0.15-1.2) mg/dL AST (0-32) U/L ALT (0-33) U/L Alkaline Phosphata se (35-105) IU/L Troponin T Gen 5 n g/L (0-10) ng/L Total Protein (6.6-8.7) g/dL Albumin (3.5-5.2) g/dL Globulin (1.3-4.6) g/dL Urine Color (Yellow) Urine Appearance (CLEAR) Urine pH (5-7) Ur Specific Gravit y (1.005-1.030) Urine Protein (Negative) Urine Glucose (UA) (Normal) Urine Ketones (Negative) Urine Blood (Negative) Urine Nitrate (Negative) Urine Bilirubin (NEGATIVE) Urine Urobilinogen (Negative) mg/dL Ur Leukocyte Yoko ase (Negative) Urine RBC (0-2) /hpf Urine WBC (0-5) /hpf Ur Squamous Epith Cells (0-5) Amorphous Sediment Urine Bacteria (NONE) Urine Opiates Scre en Positive H (Negative) ng/mL Ur Barbiturates Sc reen Negative (Negative) ng/mL Ur Phencyclidine S crn Negative (Negative) ng/mL Ur Amphetamines Sc reen Negative (Negative) ng/mL U Benzodiazepines Scrn Positive H (Negative) ng/mL Urine Cocaine Scre en Negative (Negative) ng/mL U Marijuana (THC) Screen Negative (Negative) ng/mL Ethyl Alcohol (0-10) mg/dL Discharge Plan Discharge Patient Disposition: Home Clinical Impression: Fall Qualifiers: Encounter type: initial encounter Qualified Code(s): W19.XXXA - Unspecified fall, initial encounter Adverse drug effect Qualifiers: Encounter type: initial encounter Qualified Code(s): T50.905A - Adverse effect of unspecified drugs, medicaments and biological substances, initial encounter Altered mental state Qualifiers: Altered mental status type: disorientation Qualified Code(s): R41.0 - Disorientation, unspecified Condition: Stable Prescriptions: No Action potassium chloride 20 mEq tablet extended release 20 meq PO DAILY RF: 0 metformin 1,000 mg tablet 1,000 mg PO BID RF: 0 levothyroxine 75 mcg capsule 75 mcg PO DAILY RF: 0 pregabalin [Lyrica] 50 mg capsule 50 mg PO BID RF: 0 omeprazole 20 mg tablet,delayed release (DR/EC) 20 mg PO BID RF: 0 Folbic 2.5-25-2 mg tablet 1 tab PO DAILY RF: 0 propranolol 80 mg capsule,extended release 24 hr 80 mg PO BID RF: 0 oxybutynin chloride 5 mg tablet 5 mg PO BID RF: 0 duloxetine 60 mg capsule,delayed release(DR/EC) 120 mg PO DAILY RF: 0 lamotrigine 200 mg tablet 200 mg PO BID RF: 0 aspirin [Adult Low Dose Aspirin] 81 mg tablet,delayed release (DR/EC) 81 mg PO DAILY RF: 0 quetiapine 100 mg tablet 100 mg PO DAILY RF: 0 diazepam 10 mg tablet 20 mg PO DAILY PRN (Reason: Anxiety) RF: 0 Lantus U-100 Insulin 100 unit/mL solution 40 unit SUBCUT DAILY RF: 0 (DME) crutches Qty: 1 RF: 0 (DME) Crutches Qty: 1 RF: 0 (DME) ORTHO WEDGE Qty: 1 RF: 0 (DME) Ortho Wedge Shoe Qty: 1 RF: 0 hydrocodone-acetaminophen 5-325 mg tablet 1 tab PO Q6H PRN (Reason: pain) Qty: 10 RF: 0 glimepiride 4 mg tablet 4 mg PO BID RF: 0 Discharge Orders: Discharge Order (Routine); Ordered 03/07/20 Ordered By: Sam Kelley Referrals: Carter Yusuf MD [Primary Care Provider] - Discharge Diet: Usual diet Discharge Activity: Increase activity as tolerated Patient Instructions: Adverse Drug Reaction (ED) Activity Restrictions/Additional Instructions: Hold nortriptyline. This medication can cause increase confusion when taking the elderly population. Follow-up with Dr. Yusuf for further evaluation of medications in order to adjust to avoid interactions and confusion. Return to the emergency department as needed. Coding Level of Care Code ED Supervisor [employer] for Jaret Deal Exam Comprehensive
--- NOTE | 2020-03-06 22:58 | CTR_ITS ---
PROCEDURE INFORMATION: Exam: CT Head Without Contrast Exam date and time: 03/06/2020 11:29 PM Age: 64 years old Clinical indication: Injury or trauma; Initial encounter; Blunt trauma (contusions or hematomas); Without loss of consciousness; Patient HX: Fall while walking TECHNIQUE: Imaging protocol: Computed tomography of the head without contrast. Radiation optimization: All CT scans at this facility use at least one of these dose optimization techniques: automated exposure control; mA and/or kV adjustment per patient size (includes targeted exams where dose is matched to clinical indication); or iterative reconstruction. COMPARISON: CT head wo con* [id number] 03/04/2020 12:47 PM RADIATION DOSE METRICS: Total DLP (mGy-cm): 866.36 FINDINGS: Brain: Chronic mild periventricular microangiopathy. Chronic lacunar infarct in the left basal ganglia. Mild sulcal widening is an age related change. Ventricles: Generalized sulcal widening and ventricular enlargement are age related changes. Bones/joints: Unremarkable. No acute fracture. Sinuses: Visualized sinuses are unremarkable. No fluid levels. Mastoid air cells: Visualized mastoid air cells are well aerated. Soft tissues: Unremarkable. CT/CT head wo con* [id number] IMPRESSION: No acute intracranial findings. Radiation Dose CTDIVOL = (mGy): DLP = 866.36 (mGy-cm)
--- NOTE | 2020-03-06 22:58 | ECG_ITS ---
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 Measurements Intervals [place] Rate: 71 P: 48 ME: 165 QRS: 83 QRSD: 104 T: 62 QT: 387 QTc: 422 Interpretive Statements SINUS RHYTHM Compared to ECG 03/04/2020 13:23:44 First degree AV block no longer present Electronically Signed On 03-08-2020 0:03:14 CDT by Barrie Urbina M.D. [id number]
--- NOTE | 2020-03-06 22:58 | CTR_ITS ---
PROCEDURE INFORMATION: Exam: CT Lumbar Spine Without Contrast Exam date and time: 03/06/2020 11:29 PM Age: 64 years old Clinical indication: Injury or trauma; Initial encounter; Blunt trauma (contusions or hematomas); Prior surgery; Surgery date: 6+ months; Surgery type: Fusion; Patient HX: Fall while walking TECHNIQUE: Imaging protocol: Computed tomography images of the lumbar spine without contrast. Radiation optimization: All CT scans at this facility use at least one of these dose optimization techniques: automated exposure control; mA and/or kV adjustment per patient size (includes targeted exams where dose is matched to clinical indication); or iterative reconstruction. COMPARISON: [place] [id number] 2017-10-23 13:29 RADIATION DOSE METRICS: Total DLP (mGy-cm): 2105.99 FINDINGS: Vertebrae: L3-L5 posterior spinal fusion with laminectomies. Normal spinal curvature, vertebral body heights, and alignment. No spinal fracture or acute subluxation. No acute vertebral fracture/subluxation. Minimal S-shaped curvature. Interbody fused L3-L5. Discs/Spinal canal/Neural foramina: Multilevel mild moderate foraminal stenosis. There is a moderate central L5-S1 disc protrusion causing mild moderate stenosis and contacting the descending S1 nerve roots. Other bones/joints: Spinal hardware appears intact. Soft tissues: Unremarkable. CT/CT lumbar spine wo con* [id number] IMPRESSION: No acute vertebral fracture/subluxation. Radiation Dose CTDIVOL = (mGy): DLP = 2105.99 (mGy-cm)
[2020-03-06 23:19] VITALS: BP 137/78; PULSE 72; RESP 16; O2SAT 95
[2020-03-06 23:24] LABS: Basophils % 0.3 %; Eosinophils # 0.2 10^3/uL (0.0-0.8); Eosinophils % 2.4 %; Lymphocytes # 3.3 10^3/uL (0.8-4.8); Lymphocytes % 36.4 %; Mean Corpuscular HGB Conc 30.2 g/dL (30.0-36.0); Mean Corpuscular Volume 95.8 fL (81-99); Mean Platelet Volume 9.7 fL (7.4-10.4); Monocytes # 0.8 10^3/uL (0.2-0.9); Monocytes % 8.5 %; Neutrophils # 4.61 10^3/uL (1.8-7.7); Neutrophils % 51.7 %; Nucleated Red Blood Cells % 0 %; Platelet Count 249 10^3/cmm (130-400); Red Blood Count 4.49 10^6/uL (4.1-5.3); Red Cell Distribution Width 12.7 % (12.1-15.1); White Blood Count 8.9 10^3/uL (4.0-10.0)
[2020-03-06 23:40] LABS: Lactic Sepsis W/Reflex 3.2 mmol/L (0.5-2.2)
[2020-03-06 23:42] LABS: Troponin T (5th) Once 12 ng/L (0-10)
[2020-03-06 23:46] LABS: Alanine Aminotransferase 44 U/L (0-33); Alkaline Phosphatase 99 IU/L (35-105); Anion Gap 17.2 (5-19); Aspartate Amino Transferase 26 U/L (0-32); Blood Urea Nitrogen 12 mg/dL (8-23); Calcium 9.1 mg/dL (8.5-10.5); Carbon Dioxide 23 mmol/L (22-29); Chloride 100 mmol/L (98-107); Globulin 2.7 g/dL (1.3-4.6); Glucose 195 mg/dL (65-115); Osmolality Calculated 283 mOsm/kg (285-295); Potassium 4.2 mmol/L (3.5-5.1); Sodium 136 mmol/L (136-145); Total Bilirubin 0.2 mg/dL (0.15-1.2); Total Protein 6.7 g/dL (6.6-8.7)
[2020-03-06 23:47] LABS: Alcohol Level < 10 mg/dL (0-10)
[2020-03-06 23:49] LABS: Amphetamines Screen Urine Negative (Negative); Barbiturates Screen Urine Negative (Negative); Benzodiazepines Screen Urine Positive (Negative); Cocaine Screen Urine Negative (Negative); Opiate Screen Urine Positive (Negative); PCP Screen Urine Negative (Negative); THC Screen Urine Negative (Negative)
[2020-03-06 23:50] LABS: Add Urine Microscopic? YES; Bilirubin Urine Neg (NEGATIVE); Blood Urine Neg (Negative); Glucose Urine UA Norm (Normal); Ketones Urine Negative (Negative); Leukocyte Esterase Urine 1+ (Negative); Nitrate Urine Negative (Negative); Protein Urine Neg (Negative); Specific Gravity, Urine 1.005 (1.005-1.030); Urine Appearance Clear (CLEAR); Urine Color Yellow (Yellow); Urobilinogen Urine Norm (Negative); pH Urine 7 (5-7)
--- NOTE | 2020-03-06 23:51 | XR_ITS ---
WS: [id number] PORTABLE CHEST HISTORY: weakness COMPARISON: 03/04/2020 Mild elevation RIGHT hemidiaphragm is stable. No pneumonia. Normal vasculature. No pleural effusion o r pneumothorax. Cardiac size: Normal. Mediastinum/Aorta: Normal mediastinum. No osseous abnormality seen. XR/XR chest 1V portable [id number] IMPRESSION: Unremarkable portable chest.
[2020-03-06 23:52] LABS: Add Urine Culture? No; Bacteria Urine TRACE; RBC Urine 0-4 /hpf (0-2); Squamous Epithelial Cell Urine 15-25 (0-5)
--- NOTE | 2020-03-07 00:02 | PC.NURSE ---
patient to CT
[2020-03-07 00:20] VITALS: BP 130/96
--- NOTE | 2020-03-07 00:21 | PC.NURSE ---
respiratory in room for blood draw
[2020-03-07 00:33] LABS: ABG PCO2 41.1 mmHg (35-45); ABG PH Result 7.33 (7.35-7.45); Arterial Blood Gas Hematocrit 43.5 % (37-47); Base Excess ABG -3.9 mmol/L (-2.0-2.0); Blood Gas Sample Site Brachial, left; Blood Gas Sample Type Arterial; HCO3 ABG 21.8 mmol/L (22-26); Oxygen Device ROOM AIR; PO2 ABG 79.4 mmHg (80.0-100.0)
[2020-03-07 01:09] VITALS: BP 141/96; BP 144/81; BP 151/88; PULSE 74; PULSE 77; PULSE 79
[2020-03-07 01:10] LABS: Reflex Lactate Order REFLEX LACTIC ORDERD
--- NOTE | 2020-03-07 01:32 | PC.NURSE ---
Patient passed road test. Patient normally walks around the house with a walker, patient did okay walking with the walker with some unsteadiness. Both the nurse and I flanked one side and behind the patient should she had a fall. The physician witnessed her walk back to her room and was pleased with the results. The nurse and I assisted the patient back into bed.
[2020-03-07 01:54] VITALS: BP 175/96
[2020-03-07 01:58] VITALS: BP 163/86; PULSE 96; RESP 15; O2SAT 76
== END 2020-03-07 02:00 | disposition home or self-care (01) ==
PROVIDERS: Emergency Provider Nurse Practitioner Family; PCP Family Medicine
DX: T50.905A Adverse effect of unspecified drugs, medicaments and biological substances, initial encounter (principal); R41.0 Disorientation, unspecified; Z79.82 Long term (current) use of aspirin; Z79.4 Long term (current) use of insulin; Z86.73 Personal history of transient ischemic attack (TIA), and cerebral infarction without residual deficits; E11.9 Type 2 diabetes mellitus without complications
CPT/HCPCS: 12345; 36600; 70450; 71045; 72131; 80053; 80306; 80307; 81001; 82803; 83605; 84484; 85025; 93005; 99283

== ENCOUNTER → 2020-03-16 13:16 | Outpatient (BNVA) | payer MEDICARE, OTHER, SELFPAY | PROVIDERS: Family Provider Family Medicine; PCP Family Medicine; Visit Provider Orthopaedic Surgery | DX: Z47.89 Encounter for other orthopedic aftercare (principal); S92.352D Displaced fracture of fifth metatarsal bone, left foot, subsequent encounter for fracture with routine healing | CPT/HCPCS: 73630 ==

== ENCOUNTER 2020-03-30 11:37 | Outpatient (CLI) | payer MEDICARE, OTHER, SELFPAY ==
--- NOTE | 2020-03-30 11:52 | XRR_ITS ---
PROCEDURE INFORMATION: Exam: XR Abdomen, 1 View Exam date and time: 03/30/2020 12:06 PM Age: 64 years old Clinical indication: Abdominal pain; Generalized; Prior surgery; Surgery type: Endometriosis x 5; Patient HX: Swallowed ring 6 weeks ago TECHNIQUE: Imaging protocol: XR of the abdomen. Views: Frontal supine view of the abdomen. 1 View. COMPARISON: CT abdomen pelvis w con* [id number] 02/26/2020 1:57 PM FINDINGS: Gastrointestinal tract: bowel gas pattern is nonspecific. Air filled large bowel including distal rectal gas. Large amount of stool throughout the large bowel. Bones/joints: Operative changes lumbar spine Soft tissues: Foreign body which appears to be a ring projects over the right lower abdomen/iliac bone. XR/XR KUB [id number] IMPRESSION: 1. Bowel gas pattern is nonspecific. Air filled large bowel including distal rectal gas. 2. Large amount of stool throughout the large bowel. 3. Foreign body which appears to be a ring projects over the right lower abdomen/iliac bone.
== END 2020-03-30 11:38 | disposition home or self-care (01) ==
LOC: RAD 11:42
PROVIDERS: PCP Family Medicine; Visit Provider Family Medicine
DX: R10.9 Unspecified abdominal pain (principal); T18.8XXA Foreign body in other parts of alimentary tract, initial encounter; X58.XXXA Exposure to other specified factors, initial encounter
CPT/HCPCS: 74018

== ENCOUNTER 2020-04-09 12:28 | Outpatient (CLI) | payer MEDICARE, OTHER, SELFPAY ==
--- NOTE | 2020-04-09 12:36 | XR_ITS ---
WS: [id number] [facility], 04/09/2020 Clinical Data: ABDOMINAL PAIN Comparison: [facility], 03/30/2020. Findings: There is a radiopaque object overlying the right ilium which appears to be a ring. There are clips in right upper quadrant from cholecystectomy. The patient's had a bilateral posterior fusion with pedic le screws at L3, L4 and L5 and connecting rods. The patient's had a laminectomy at L3 and L4. There a re midline pelvic sutures. There is a moderate amount of fecal material in the ascending colon. The small bowel is not dilated. There is no evidence of any obstruction. No abnormal calcifications are seen. The patient's clothing obscures minimal detail over the lower thoracic bodies. Impression: 1. Foreign body overlying the right ilium which could represent a ring or an unusual surgical device. 2. Cholecystectomy and posterior lumbar fusion. 3. Midline pelvic sutures.
== END 2020-04-09 12:29 | disposition home or self-care (01) ==
LOC: RAD 12:33
PROVIDERS: PCP Family Medicine; Visit Provider Family Medicine
DX: R10.9 Unspecified abdominal pain (principal); S30.850A Superficial foreign body of lower back and pelvis, initial encounter; X58.XXXA Exposure to other specified factors, initial encounter; M43.26 Fusion of spine, lumbar region; Z90.49 Acquired absence of other specified parts of digestive tract
CPT/HCPCS: 74018

== ENCOUNTER 2020-04-14 11:15 | Emergency (ER) | payer MEDICARE, OTHER, SELFPAY ==
[2020-04-14 11:16] VITALS: BP 123/68; PULSE 75; RESP 18; TEMP 36.9; O2SAT 97; BMI 30.7
[2020-04-14 11:21] VITALS: O2SAT 96
--- NOTE | 2020-04-14 11:25 | CTR_ITS ---
PROCEDURE INFORMATION: Exam: CT Head Without Contrast Exam date and time: 04/14/2020 1:52 PM Age: 64 years old Clinical indication: Pain and injury or trauma; Blunt trauma (contusions or hematomas); Consciousness not specified; Headache not specified; Injury date: 04/14/20; Injury details: Fall today, head and neck pain, HX of multiple falls; Prior surgery; Surgery type: Cervical fusion TECHNIQUE: Imaging protocol: Computed tomography of the head without contrast. Radiation optimization: All CT scans at this facility use at least one of these dose optimization techniques: automated exposure control; mA and/or kV adjustment per patient size (includes targeted exams where dose is matched to clinical indication); or iterative reconstruction. COMPARISON: CT head wo con* [id number] 03/06/2020 11:53 PM RADIATION DOSE METRICS: Total DLP (mGy-cm): 846.54 FINDINGS: Brain: There is no acute intracranial hemorrhage, cerebral edema, or midline shift. Chronic microvascular ischemic changes are seen in the periventricular white matter. Mild cerebral and cerebellar volume loss is present. Cerebral ventricles: Mild ex vacuo dilation of the lateral ventricles is noted. Bones/joints: Hyperostosis frontalis interna is noted. Paranasal sinuses: There is no acute sinusitis. Mastoid air cells: The mastoid air cells are clear. Orbital cavity: The included orbital structures are unremarkable. Vasculature: Atherosclerotic calcifications are seen involving the cavernous carotid arteries. Soft tissues: Unremarkable. CT/CT head wo con* [id number] IMPRESSION: 1. No acute intracranial abnormality. 2. Atrophy and chronic deep white matter ischemic changes. Radiation Dose CTDIVOL = (mGy): DLP = 846.54 (mGy-cm)
--- NOTE | 2020-04-14 11:25 | XR_ITS ---
WS: [id number] XR shoulder RT min 2V* [id number] REASON FOR EXAM: injury FINDINGS: Oblique fracture through the mid and inferior right glenoid with minimal lateral and inferior displac ement. The humeral head appears intact. No Hill-Sachs lesion to indicate chronic dislocations. Multiple right rib fractures, probably old healed. XR/XR shoulder RT min 2V* [id number] IMPRESSION: Fracture of the glenoid portion of the right scapula as above.
--- NOTE | 2020-04-14 11:25 | CTR_ITS ---
PROCEDURE INFORMATION: Exam: CT Cervical Spine Without Contrast Exam date and time: 04/14/2020 1:52 PM Age: 64 years old Clinical indication: Pain and injury or trauma; Blunt trauma; Injury date: 04/14/20; Injury details: Fall today, head and neck pain; Prior surgery; Surgery type: Cervical fusion TECHNIQUE: Imaging protocol: Computed tomography images of the cervical spine without contrast. Radiation optimization: All CT scans at this facility use at least one of these dose optimization techniques: automated exposure control; mA and/or kV adjustment per patient size (includes targeted exams where dose is matched to clinical indication); or iterative reconstruction. COMPARISON: CT Cervical Spine wo* [id number] 12/31/2018 11:33 PM RADIATION DOSE METRICS: Total DLP (mGy-cm): 633.66 FINDINGS: Vertebrae: The patient is status post C5-7 fusion with anterior plate and screw fixation. The surgical hardware is in place and intact. There is straightening of the normal cervical lordosis. No acute fracture is identified. Discs/Spinal canal/Neural foramina: Moderate degenerative changes of the cervical spine are present. There is no severe spinal canal stenosis. Soft tissues: Unremarkable. Lungs: Lung apices are normal. CT/CT cervical spin wo con* [id number] IMPRESSION: 1. No acute abnormality. 2. Chronic findings as discussed above. Radiation Dose CTDIVOL = (mGy): DLP = 633.66 (mGy-cm)
--- NOTE | 2020-04-14 11:25 | XR_ITS ---
WS: [id number] XR elbow RT min 3V* [id number] REASON FOR EXAM: injury FINDINGS: There appears to be elevation of the anterior fat pad which is evidence of joint effusion. Definite fracture is not identifiable. On one view there is a suggestion of radial head deformity wit h loss of smooth contour of the cortex inferior to radial head There is a small partially ossified body adjacent to the origin of the common flexor tendon on the la teral epicondyles. This most likely relates to tendinosis. XR/XR elbow RT min 3V* 85010 IMPRESSION: Probable joint effusion. Fracture not not definitely identified, possible radia l head abnormality as above. Follow-up exam in 10-12 days recommended.
--- NOTE | 2020-04-14 11:37 | ED_ITS ---
HPI - Extremity Problem General: Chief complaint: Extremity Injury, Upper Stated complaint: Right arm injury Time Seen by Provider: 04/14/20 11:20 Source: patient Mode of arrival: ambulatory Limitations: no limitations History of Present Illness: HPI Narrative: 64-year-old female states she tripped and fell onto her linoleum floor. She states she landed on her right side mainly her right shoulder and elbow. States she has pain in her right shoulder and elbow that is 8 out of 10. She has some mild head and neck pain but states the pain in her arm is much worse. She states it is worse with any movement improved with rest. She denies any pain in her lower extremities. MD Complaint: extremity pain Associated symptoms: Deny chest pain, fever(s) or rash Review of Systems Const: Denies: fever(s), chills, body aches or change in appetite Eyes: Denies: blurry vision or eye discomfort ENMT: Denies: throat pain or dental pain Card: Denies: chest pain Resp: Denies: dyspnea GI: Denies: abdominal pain, nausea, vomiting or diarrhea : Denies: dysuria Musc: Reports: extremity pain; Denies: neck pain or back pain Skin/Breast: Denies: rash Neuro: Denies: headache(s) Psych: Denies: depression Isidoro/Lymph: Denies: easy bruising All/Imm: Denies: urticaria PFSH ED PFSH: Medical History Chronic diarrhea CVA (cerebral vascular accident) History of anemia History of anxiety History of aphasia History of bipolar disorder History of depression History of GI bleed History of hypothyroidism History of posttraumatic stress disorder (PTSD) Hx of kidney disease Hx of primary hypertension Hx of type 2 diabetes mellitus Hypothyroidism Tension headache, chronic TIA (transient ischemic attack) Surgical History History of back surgery Hx of appendectomy Hx of cholecystectomy Hx of hysterectomy Hx of neck surgery Social History Smoking and tobacco status: never smoked Physical Exam Const: COMMON NORMALS: no acute distress, patient oriented x3 and healthy appearing HENMT: COMMON NORMALS: normocephalic and atraumatic HEAD & SCALP: normocephalic and atraumatic Eye: COMMON NORMALS: Equal, round and reactive pupils present and EOMs intact bilaterally PUPIL: Yes Equal, round and reactive pupils present Neck/C-Spine: COMMON NORMALS: full ROM and supple Chest: COMMONS NORMALS: normal inspection of the chest and normal palpation of entire chest wall Resp: COMMON NORMALS: normal respiratory effort, No retractions, No use of accessory muscles and clear to auscultation bilaterally AUSCULTATION: clear to auscultation bilaterally Cardio: COMMON NORMALS: regular rate, regular rhythm and No murmurs present (Cardio) RATE: regular rate RHYTHM: regular rhythm GI: COMMON NORMALS: Normal to inspection, nondistended, normoactive bowel sounds present, Soft to palpation, non-tender and no masses PALPATION: Yes Soft to palpation Extremity: NARRATIVE EXTREMITY EXAM: Tenderness over right shoulder and elbow. Has extreme pain with any attempt to move. Neuro: COMMON NORMALS: patient oriented x3, moves all extremities and no focal motor deficits Psych: COMMON NORMALS: mental status grossly normal, Normal thought process present and cooperative THOUGHT PROCESS: Normal thought process present Skin: COMMON NORMALS: no rashes or lesions noted and no wounds GENERAL SKIN EXAM: no rashes or lesions noted Course Vital Signs: Vital signs: Vital Signs Temperature 98.4 F 04/14/20 11:16 Pulse Rate 72 04/14/20 12:59 Respiratory Rate 18 04/14/20 11:16 Blood Pressure 143/77 04/14/20 12:59 Pulse Oximetry 94 04/14/20 12:59 MDM - Extremity (Nontraumatic) MDM Narrative: Medical decision making narrative: Patient presents here with a scapular fracture and a possible elbow fracture from a fall. She had no chest injury or lower extremity pain. CT head and C-spine are normal. Patient placed in a splint and sling and is to follow with orthopedics. Will place patient on pain meds. She is stable for discharge and return if worsening. Imaging Data^: CT Head: Radiologist's impression: [address] [place] [address] CT Scan Report Signed Patient: Kaylee Ch Unit #: [id number] : 1955 Age/Sex: 64 / F ADM Date: 04/14/20 Loc: ER Room/Bed: Attending Dr: Ordering Provider/Ordering MD: Antelmo Ornelas MD Date of Service: 04/14/20 Procedure(s): CT head wo con* [id number] Accession Number(s): [id number] Report Number: [id number] PROCEDURE INFORMATION: Exam: CT Head Without Contrast Exam date and time: 04/14/2020 1:52 PM Age: 64 years old Clinical indication: Pain and injury or trauma; Blunt trauma (contusions or hematomas); Consciousness not specified; Headache not specified; Injury date: 04/14/20; Injury details: Fall today, head and neck pain, HX of multiple falls; Prior surgery; Surgery type: Cervical fusion TECHNIQUE: Imaging protocol: Computed tomography of the head without contrast. Radiation optimization: All CT scans at this facility use at least one of these dose optimization techniques: automated exposure control; mA and/or kV adjustment per patient size (includes targeted exams where dose is matched to clinical indication); or iterative reconstruction. COMPARISON: CT head wo con* [id number] 03/06/2020 11:53 PM RADIATION DOSE METRICS: Total DLP (mGy-cm): 846.54 FINDINGS: Brain: There is no acute intracranial hemorrhage, cerebral edema, or midline shift. Chronic microvascular ischemic changes are seen in the periventricular white matter. Mild cerebral and cerebellar volume loss is present. Cerebral ventricles: Mild ex vacuo dilation of the lateral ventricles is noted. Bones/joints: Hyperostosis frontalis interna is noted. Paranasal sinuses: There is no acute sinusitis. Mastoid air cells: The mastoid air cells are clear. Orbital cavity: The included orbital structures are unremarkable. Vasculature: Atherosclerotic calcifications are seen involving the cavernous carotid arteries. Soft tissues: Unremarkable. CT/CT head wo con* [id number] IMPRESSION: 1. No acute intracranial abnormality. 2. Atrophy and chronic deep white matter ischemic changes. Radiation Dose CTDIVOL = (mGy): DLP = 846.54 (mGy-cm) Other CT: Radiologist's impression: [address] [address] [address] Scan Report Signed Patient: Kaylee Ch Unit #: [id number] : 1955 Age/Sex: 64 / F ADM Date: 04/14/20 Loc: ER Room/Bed: Attending Dr: Ordering Provider/Ordering MD: Antelmo Ornelas MD Date of Service: 04/14/20 Procedure(s): CT cervical spin wo con* [id number] Accession Number(s): [id number] Report Number: [id number] PROCEDURE INFORMATION: Exam: CT Cervical Spine Without Contrast Exam date and time: 04/14/2020 1:52 PM Age: 64 years old Clinical indication: Pain and injury or trauma; Blunt trauma; Injury date: 04/14/20; Injury details: Fall today, head and neck pain; Prior surgery; Surgery type: Cervical fusion TECHNIQUE: Imaging protocol: Computed tomography images of the cervical spine without contrast. Radiation optimization: All CT scans at this facility use at least one of these dose optimization techniques: automated exposure control; mA and/or kV adjustment per patient size (includes targeted exams where dose is matched to clinical indication); or iterative reconstruction. COMPARISON: CT Cervical Spine wo* [id number] 12/31/2018 11:33 PM RADIATION DOSE METRICS: Total DLP (mGy-cm): 633.66 FINDINGS: Vertebrae: The patient is status post C5-7 fusion with anterior plate and screw fixation. The surgical hardware is in place and intact. There is straightening of the normal cervical lordosis. No acute fracture is identified. Discs/Spinal canal/Neural foramina: Moderate degenerative changes of the cervical spine are present. There is no severe spinal canal stenosis. Soft tissues: Unremarkable. Lungs: Lung apices are normal. CT/CT cervical spin wo con* [id number] IMPRESSION: 1. No acute abnormality. 2. Chronic findings as discussed above. Radiation Dose CTDIVOL = (mGy): DLP = 633.66 (mGy-cm) xr r elbow: Radiologist's impression: [address] [address] XRay Report Signed Patient: Kaylee Ch Unit #: [id number] : 1955 Age/Sex: 64 / F ADM Date: 04/14/20 Loc: ER Room/Bed: Attending Dr: Ordering Provider/Ordering MD: Antelmo Ornelas MD Date of Service: 04/14/20 Procedure(s): XR elbow RT min 3V* [id number] Accession Number(s): [id number] Report Number: [id number] WS: [id number] XR elbow RT min 3V* [id number] REASON FOR EXAM: injury FINDINGS: There appears to be elevation of the anterior fat pad which is evidence of joint effusion. Definite fracture is not identifiable. On one view there is a suggestion of radial head deformity with loss of smooth contour of the cortex inferior to radial head There is a small partially ossified body adjacent to the origin of the common flexor tendon on the lateral epicondyles. This most likely relates to tendinosis. XR/XR elbow RT min 3V* [id number] IMPRESSION: Probable joint effusion. Fracture not not definitely identified, possible radial head abnormality as above. Follow-up exam in 10-12 days recommended. xr shoulder: Radiologist's impression: [place] [address] XRay Report Signed Patient: Kaylee Ch Unit #: [id number] : 1955 Age/Sex: 64 / F ADM Date: 04/14/20 Loc: ER Room/Bed: Attending Dr: Ordering Provider/Ordering MD: Antelmo Ornelas MD Date of Service: 04/14/20 Procedure(s): XR shoulder RT min 2V* [id number] Accession Number(s): [id number] Report Number: [id number] WS: [id number] XR shoulder RT min 2V* [id number] REASON FOR EXAM: injury FINDINGS: Oblique fracture through the mid and inferior right glenoid with minimal lateral and inferior displacement. The humeral head appears intact. No Hill-Sachs lesion to indicate chronic dislocations. Multiple right rib fractures, probably old healed. XR/XR shoulder RT min 2V* [id number] IMPRESSION: Fracture of the glenoid portion of the right scapula as above. Discharge Plan Discharge Patient Disposition: Home Clinical Impression: Elbow pain, right Fracture closed, scapula Qualifiers: Encounter type: initial encounter Scapula location: glenoid fossa Fracture alignment: nondisplaced Laterality: right Qualified Code(s): S42.144A - Nondisplaced fracture of glenoid cavity of scapula, right shoulder, initial encounter for closed fracture Condition: Stable Prescriptions: [place] 5-325 mg tablet 1 tab PO Q6H PRN (Reason: pain) Qty: 14 RF: 0 No Action potassium chloride 20 mEq tablet extended release 20 meq PO DAILY RF: 0 metformin 1,000 mg tablet 1,000 mg PO BID RF: 0 levothyroxine 75 mcg capsule 75 mcg PO DAILY RF: 0 pregabalin [Lyrica] 50 mg capsule 50 mg PO BID RF: 0 omeprazole 20 mg tablet,delayed release (DR/EC) 20 mg PO BID RF: 0 Folbic 2.5-25-2 mg tablet 1 tab PO DAILY RF: 0 propranolol 80 mg capsule,extended release 24 hr 80 mg PO BID RF: 0 oxybutynin chloride 5 mg tablet 5 mg PO BID RF: 0 duloxetine 60 mg capsule,delayed release(DR/EC) 120 mg PO DAILY RF: 0 lamotrigine 200 mg tablet 200 mg PO BID RF: 0 aspirin [Adult Low Dose Aspirin] 81 mg tablet,delayed release (DR/EC) 81 mg PO DAILY RF: 0 quetiapine 100 mg tablet 100 mg PO DAILY RF: 0 diazepam 10 mg tablet 20 mg PO DAILY PRN (Reason: Anxiety) RF: 0 Lantus U-100 Insulin 100 unit/mL solution 40 unit SUBCUT DAILY RF: 0 (DME) crutches Qty: 1 RF: 0 (DME) Crutches Qty: 1 RF: 0 (DME) ORTHO WEDGE Qty: 1 RF: 0 (DME) Ortho Wedge Shoe Qty: 1 RF: 0 hydrocodone-acetaminophen 5-325 mg tablet 1 tab PO Q6H PRN (Reason: pain) Qty: 10 RF: 0 glimepiride 4 mg tablet 4 mg PO BID RF: 0 Discharge Orders: Discharge Order (Routine); Ordered 04/14/20 Ordered By: Antelmo Ornelas Referrals: Sanaz Garcia MD [Physician] - 1-3 days Carter Yusuf MD [Primary Care Provider] - Discharge Diet: Advance as tolerated Discharge Activity: Resume usual activity Patient Instructions: Scapular Fracture (ED), Elbow Sprain (ED) Coding Level of Care Code ED Animal Assisted Therapist for Chg Fwd Exam Comprehensive
[2020-04-14 12:59] VITALS: BP 143/77; PULSE 72; O2SAT 94
[2020-04-14] MEDS: HYDROcodone-acetaminophen 10-325 mg Tablet 1 TAB PO (13:25)
[2020-04-14 14:53] VITALS: BP 131/81; PULSE 74; O2SAT 94
--- NOTE | 2020-04-15 08:29 | DCPLANNER ---
manager of international had message to schedule a follow up appointment for patient with ortho. manager of international called the ortho clinic, spoke with Pat, gave clinic patients information. manager of international was told that patients information would be printed and reviewed. Clinic will call patient with appointment information.
--- NOTE | 2020-04-20 10:19 | DCPLANNER ---
Patient has an appointment scheduled for Monday, April 20, 2020 at 1:[address] Kendrick. Clinic will call patient with appointment information.
--- NOTE | 2020-04-30 16:05 | DCPLANNER ---
Patient had a follow up appointment scheduled for 04.20.20 with ortho - patient did attend appointment.
== END 2020-04-14 14:55 | disposition home or self-care (01) ==
PROVIDERS: Emergency Provider Emergency Medicine; PCP Family Medicine
DX: S42.144A Nondisplaced fracture of glenoid cavity of scapula, right shoulder, initial encounter for closed fracture (principal); Z79.82 Long term (current) use of aspirin; Z79.4 Long term (current) use of insulin; Z86.73 Personal history of transient ischemic attack (TIA), and cerebral infarction without residual deficits; I10 Essential (primary) hypertension; E11.9 Type 2 diabetes mellitus without complications; W01.0XXA Fall on same level from slipping, tripping and stumbling without subsequent striking against object, initial encounter
CPT/HCPCS: 12345; 29105; 29505; 70450; 72125; 73030; 73080; 99283

== ENCOUNTER 2020-04-17 18:26 | Emergency (ER) | payer MEDICARE, OTHER, SELFPAY ==
[2020-04-17 18:54] VITALS: BP 153/105; PULSE 103; RESP 18; TEMP 37.1; O2SAT 96; BMI 30.7
--- NOTE | 2020-04-17 21:25 | W.ED.EXTPRO ---
HPI - Extremity Problem General: Chief complaint: Extremity Injury, Upper Stated complaint: arm pain Time Seen by Provider: 04/17/20 21:12 Source: patient Mode of arrival: ambulatory Limitations: no limitations History of Present Illness: HPI Narrative: Patient comes in for uncontrolled pain to her right arm. Patient has a known fracture of the glenoid fossa of the right scapula. Patient possibly has a right radial head fracture also. Patient reports just difficulty maintaining pain control with hydrocodone. Patient appears well. Patient appears in no acute distress. Review of Systems General: Reports: 10 or more systems reviewed and unremarkable except in HPI and below Musc: Reports: joint pain (Right shoulder pain) [facility] ED PFSH: Medical History (Updated 04/17/20 @ 21:24 by LIGIA Caro) Chronic diarrhea CVA (cerebral vascular accident) History of anemia History of anxiety History of aphasia History of bipolar disorder History of depression History of GI bleed History of hypothyroidism History of posttraumatic stress disorder (PTSD) Hx of kidney disease Hx of primary hypertension Hx of type 2 diabetes mellitus Hypothyroidism Tension headache, chronic TIA (transient ischemic attack) Surgical History History of back surgery Hx of appendectomy Hx of cholecystectomy Hx of hysterectomy Hx of neck surgery Social History Smoking and tobacco status: never smoked Physical Exam Const: COMMON NORMALS: no acute distress and patient oriented x3 GENERAL APPEARANCE: cooperative HENMT: COMMON NORMALS: normocephalic and Normal external nose present HEAD & SCALP: normal to inspection and normocephalic NOSE: Normal external nose present Eye: GENERAL EYE: appearance normal, both eyes and all related structures Neck/C-Spine: COMMON NORMALS: full ROM Chest: COMMONS NORMALS: normal inspection of the chest Resp: COMMON NORMALS: normal respiratory effort EFFORT & INSPECTION: Yes able to speak in complete sentences Cardio: COMMON NORMALS: regular rate and regular rhythm RATE: regular rate RHYTHM: regular rhythm GI: COMMON NORMALS: non-tender Back/Pelvis: COMMON NORMALS: thoracic and lumbar spine normal to inspection Extremity: NARRATIVE EXTREMITY EXAM: Patient has tenderness to the right shoulder. Distal pulses are intact. No significant swelling distally. Prompt capillary refill is noted. Differential diagnosis includes but not limited to uncontrolled musculoskeletal pain. Fracture. Contusion. Reviewed exam with patient. No signs of DVT or significant illnesses noted. Will try patient with different mode of pain control with a nonsteroidal anti-inflammatory. We will give Celebrex 200 twice a day to regimen. Patient can continue with hydrocodone as ordered. Patient reported understanding of care plan and need for follow-up. We will arrange with case management to have assist with orthopedic follow-up. Neuro: COMMON NORMALS: patient oriented x3 and moves all extremities Psych: COMMON NORMALS: mental status grossly normal and cooperative Skin: COMMON NORMALS: no rashes or lesions noted GENERAL SKIN EXAM: no rashes or lesions noted Course Vital Signs: Vital signs: Vital Signs Temperature 98.8 F 04/17/20 18:54 Pulse Rate 103 H 04/17/20 18:54 Respiratory Rate 18 04/17/20 18:54 Blood Pressure 153/105 04/17/20 18:54 Pulse Oximetry 96 04/17/20 18:54 Discharge Plan Discharge Patient Disposition: Home Clinical Impression: Elbow pain, right Fracture closed, scapula Qualifiers: Encounter type: subsequent encounter Scapula location: glenoid fossa Fracture alignment: nondisplaced Laterality: right Fracture healing: with routine healing Qualified Code(s): S42.144D - Nondisplaced fracture of glenoid cavity of scapula, right shoulder, subsequent encounter for fracture with routine healing Condition: Stable Prescriptions: New celecoxib 200 mg capsule 200 mg PO BID Qty: 20 RF: 0 No Action potassium chloride 20 mEq tablet extended release 20 meq PO DAILY RF: 0 metformin 1,000 mg tablet 1,000 mg PO BID RF: 0 levothyroxine 75 mcg capsule 75 mcg PO DAILY RF: 0 pregabalin [Lyrica] 50 mg capsule 50 mg PO BID RF: 0 omeprazole 20 mg tablet,delayed release (DR/EC) 20 mg PO BID RF: 0 Folbic 2.5-25-2 mg tablet 1 tab PO DAILY RF: 0 propranolol 80 mg capsule,extended release 24 hr 80 mg PO BID RF: 0 oxybutynin chloride 5 mg tablet 5 mg PO BID RF: 0 duloxetine 60 mg capsule,delayed release(DR/EC) 120 mg PO DAILY RF: 0 lamotrigine 200 mg tablet 200 mg PO BID RF: 0 aspirin [Adult Low Dose Aspirin] 81 mg tablet,delayed release (DR/EC) 81 mg PO DAILY RF: 0 quetiapine 100 mg tablet 100 mg PO DAILY RF: 0 diazepam 10 mg tablet 20 mg PO DAILY PRN (Reason: Anxiety) RF: 0 Lantus U-100 Insulin 100 unit/mL solution 40 unit SUBCUT DAILY RF: 0 (DME) crutches Qty: 1 RF: 0 (DME) Crutches Qty: 1 RF: 0 (DME) ORTHO WEDGE Qty: 1 RF: 0 (DME) Ortho Wedge Shoe Qty: 1 RF: 0 hydrocodone-acetaminophen 5-325 mg tablet 1 tab PO Q6H PRN (Reason: pain) Qty: 10 RF: 0 glimepiride 4 mg tablet 4 mg PO BID RF: 0 [place] 5-325 mg tablet 1 tab PO Q6H PRN (Reason: pain) Qty: 14 RF: 0 Discharge Orders: Discharge Order (Routine); Ordered 04/17/20 Ordered By: Sam Kelley Referrals: Carter Yusuf MD [Primary Care Provider] - Discharge Diet: Usual diet Discharge Activity: Increase activity as tolerated Patient Instructions: Arm Fracture in Adults (ED) Activity Restrictions/Additional Instructions: Activity as tolerated. Drink plenty of fluids. Take medications as directed. Follow-up with primary care for further treatment. Case management will contact you Sunday regarding follow-up appointment with orthopedics. Return to the emergency department for new concerns. Coding Level of Care Code ED Dentist Attendant for Jaret Deal
[2020-04-17 21:26] VITALS: RESP 18
[2020-04-17 22:20] VITALS: RESP 18; O2SAT 94
[2020-04-17] MEDS: morphine 4 mg/mL SDV 1 mL IM (22:20)
[2020-04-17] MEDS: ketorolac 30 mg/mL INJ IM (22:20)
--- NOTE | 2020-04-19 09:18 | DCPLANNER ---
manager mutual fund had message to schedule a follow up appointment for patient with ortho. manager mutual fund has already made a referral to ortho for patient from visit on 04.14.20. Please look at that visit for appointment information.
== END 2020-04-17 22:25 | disposition home or self-care (01) ==
PROVIDERS: Emergency Provider Nurse Practitioner Family; PCP Family Medicine
DX: S42.144A Nondisplaced fracture of glenoid cavity of scapula, right shoulder, initial encounter for closed fracture (principal); M25.521 Pain in right elbow; Z79.82 Long term (current) use of aspirin; Z79.4 Long term (current) use of insulin; Z86.73 Personal history of transient ischemic attack (TIA), and cerebral infarction without residual deficits; I10 Essential (primary) hypertension; E11.9 Type 2 diabetes mellitus without complications; X58.XXXA Exposure to other specified factors, initial encounter
CPT/HCPCS: 12345; 96372; 99281; 99283; J1885; J2270

== ENCOUNTER 2020-04-20 14:27 | Outpatient (CLI) | payer MEDICARE, OTHER, SELFPAY ==
--- NOTE | 2020-04-20 14:30 | CT_ITS ---
WS: [id number] NONCONTRAST CT RIGHT SHOULDER TECHNIQUE: Noncontrast CT With coronal and sagittal reformatted images. CLINICAL INFORMATION: fracture COMPARISON: None. DLP: 762.[address] scans at [facility] use at least one of these dose optimization techniques: automat ed exposure control; mA and/or kV adjustment per patient size (includes targeted exams where dose is matched to clinical indication); or iterative reconstruction. FINDINGS: Distal clavicle is normal in appearance. Normal AC joint. Mild downsloping of the acromion. Humerus i s normal in appearance. No dislocation. Moderate degenerative arthritis glenohumeral joint with joint space narrowing. Extensive comminuted fracture involving the glenoid extending to the articular surf [place]. Avulsed displaced fragments along the anterior glenoid. Largest fragment just inferior to the co racoid measuring 7 mm. Additional tiny fragment adjacent to the glenoid rim. Mild depression of the g lenoid fracture. Fracture extends into the neck and lateral border of the scapula. Soft tissue edema. Prior postoperative changes cervical spine partially visualized. Chronic right rib fractures with brian cary formation. Partially visualized right lung is well aerated. CT/CT shoulder RT wo con* [id number] IMPRESSION: 1. Comminuted fractures of the glenoid with extension into the neck and latera l border of the scapula. This involves the glenoid articular surface. 2. Two Small avulsed fragments described above with the largest fragment just inferior to the coracoid. 3. Chronic right rib fractures with callus formation.
== END 2020-04-20 14:28 | disposition home or self-care (01) ==
LOC: RADWPI 14:35
PROVIDERS: PCP Family Medicine; Visit Provider Orthopaedic Surgery
DX: S42.144A Nondisplaced fracture of glenoid cavity of scapula, right shoulder, initial encounter for closed fracture (principal); X58.XXXA Exposure to other specified factors, initial encounter; M25.70 Osteophyte, unspecified joint; S22.31XS Fracture of one rib, right side, sequela; X58.XXXS Exposure to other specified factors, sequela
CPT/HCPCS: 73200

== ENCOUNTER 2020-04-28 10:53 | Emergency (ER) | payer MEDICARE, OTHER, SELFPAY ==
[2020-04-28 11:15] VITALS: BP 141/88; PULSE 76; RESP 16; TEMP 36.3; O2SAT 97; BMI 29.8
--- NOTE | 2020-04-28 11:47 | XRR_ITS ---
PROCEDURE INFORMATION: Exam: XR Right Humerus Exam date and time: 04/28/2020 11:53 AM Age: 64 years old Clinical indication: Injury or trauma; Fall; Blunt trauma (contusions or hematomas); Arm, upper; Right TECHNIQUE: Imaging protocol: XR Right humerus Views: 2 or more views. COMPARISON: CR XR elbow RT min 3V* [id number] 04/14/2020 11:36 AM FINDINGS: Bones/joints: There is an oblique fracture through the glenoid that extends through the inferolateral aspect of the right scapula. The fracture fragment is displaced about 15 mm laterally at its inferior aspect. The right humerus appears to be intact with no humeral fractures. The humeral head is not dislocated. Soft tissues: Normal. XR/[place] [id number] IMPRESSION: Displaced fracture through the glenoid and lateral scapula.
--- NOTE | 2020-04-28 11:51 | W.ED.EXTPRO ---
HPI - Extremity Problem General: Chief complaint: Extremity Injury, Upper Stated complaint: R ARM PAIN/INJURY Time Seen by Provider: 04/28/20 11:30 Source: patient History of Present Illness: HPI Narrative: Patient currently has a right shoulder fracture and is going to see the surgeon in [place] next week. Today while going down the steps she tripped and fell and landed on her right elbow. She has pain in her right upper arm distal to her left shoulder. It is about in the mid upper arm and she feels that she may have broken that. She is in a lot of pain. She is here to be evaluated further. She did not hit her head and did not lose consciousness. No other pain anywhere else. Complaint: extremity pain Onset (ago): minute(s) (30) Pain Consistency: constant Location: right and upper extremity Severity scale (1-10): 8 Quality: sharp Radiation: none Relieving factors: nothing Exacerbating factors: range of motion and weight bearing Associated symptoms: Reports no associated symptoms; Deny fever(s) or rash Review of Systems General: Reports: 10 or more systems reviewed and unremarkable except in HPI and below Const: Denies: fever(s), chills or body aches Eyes: Denies: change in vision or blurry vision ENMT: Denies: throat pain, enlarged tonsils, odynophagia, hoarseness, mouth pain or swelling of lips/tongue Card: Denies: palpitations, irregular heart rhythm, edema or swelling of feet/ankles Resp: Denies: dyspnea, productive cough or non-productive cough GI: Denies: abdominal pain, nausea or vomiting : Denies: flank pain, difficulty voiding, dysuria, urinary frequency, urinary urgency or urinary hesitancy Musc: Reports: extremity pain; Denies: neck pain, back pain or extremity swelling Skin/Breast: Denies: rash, pruritus or erythema Neuro: Denies: headache(s), numbness in extremities or weakness in extremities Endo: Denies: polyuria, polydipsia or tired all the time PFS ED PFSH: Medical History (Reviewed 04/28/20 @ 13:30 by Morgan Gayle MD, [facility] [place]) Chronic diarrhea CVA (cerebral vascular accident) History of anemia History of anxiety History of aphasia History of bipolar disorder History of depression History of GI bleed History of hypothyroidism History of posttraumatic stress disorder (PTSD) Hx of kidney disease Hx of primary hypertension Hx of type 2 diabetes mellitus Hypothyroidism Tension headache, chronic TIA (transient ischemic attack) Surgical History (Reviewed 04/28/20 @ 13:30 by Morgan Gayle MD, [facility] [place]) History of back surgery Hx of appendectomy Hx of cholecystectomy Hx of hysterectomy Hx of neck surgery Social History (Reviewed 04/28/20 @ 13:30 by Morgan Gayle MD, [facility] [place]) Smoking and tobacco status: never smoked Physical Exam Const: COMMON NORMALS: average body habitus, patient oriented x3, no limitations, healthy appearing, alert and well nourished GENERAL APPEARANCE: in distress (mild painful distress) HENMT: COMMON NORMALS: normocephalic, atraumatic and moist oral mucous membranes HEAD & SCALP: normocephalic and atraumatic Eye: COMMON NORMALS: Equal, round and reactive pupils present, EOMs intact bilaterally, conjunctivae normal and no scleral icterus CONJUNCTIVA: Yes conjunctivae normal PUPIL: Yes Equal, round and reactive pupils present Neck/C-Spine: COMMON NORMALS: full ROM, supple, no meningeal signs, no JVD and No carotid bruits Chest: COMMONS NORMALS: normal inspection of the chest and normal palpation of entire chest wall Resp: COMMON NORMALS: normal respiratory effort, No retractions, No use of accessory muscles, clear to auscultation bilaterally and percussion normal AUSCULTATION: clear to auscultation bilaterally PERCUSSION: percussion normal Cardio: COMMON NORMALS: no JVD, regular rate, regular rhythm, S1 normal heart sound present, S2 normal heart sound present, No gallops present (Cardio), No clicks present (Cardio), No murmurs present (Cardio), No rub (Cardio) and Peripheral pulses 2+ throughout RATE: regular rate RHYTHM: regular rhythm HEART SOUNDS: S1 normal heart sound present and S2 normal heart sound present PERIPHERAL PULSES: Peripheral pulses 2+ throughout GI: COMMON NORMALS: Normal to inspection, nondistended, normoactive bowel sounds present, Soft to palpation, non-tender, No hepatosplenomegaly present, no masses and no bruits PALPATION: Yes Soft to palpation and Yes No hepatosplenomegaly present Extremity: COMMON NORMALS: normal to inspection, full ROM, capillary refill normal, no calf tenderness and no pedal edema RIGHT UPPER EXTREMITY: Yes shoulder joint (pain on palpation. Reduced rom) and Yes upper arm Right upper arm: Yes inspection and Yes palpation (tender in the mid ipper arm. No obvious deformity noted. ) OTHER: Neurovascular ststus is intact Neuro: COMMON NORMALS: patient oriented x3 SENSORIUM/ORIENTATION: Yes alert MENINGEAL SIGNS: Yes no meningeal signs Skin: COMMON NORMALS: no rashes or lesions noted, no wounds, turgor normal, no jaundice, no petechiae and no mottling GENERAL SKIN EXAM: no rashes or lesions noted and turgor normal Course Reevaluation(s): Reevaluation #1: Discussed her imaging findings with her. No new fractures. She still has the scapula and humeral head fracture. No new fractures. She has no pain medication prescriptions I will send her home with some prescription for hydrocodone. She will follow-up as scheduled. She voiced understanding and is in agreement with the plan Time: 13:15 Vital Signs: Vital signs: Vital Signs Temperature 97.3 F L 04/28/20 11:15 Pulse Rate 72 04/28/20 13:27 Respiratory Rate 18 04/28/20 13:27 Blood Pressure 139/79 04/28/20 13:27 Pulse Oximetry 97 04/28/20 13:27 MDM - Extremity (Nontraumatic) MDM Narrative: Medical decision making narrative: Patient with a current right glenoid and scapula fracture who is scheduled to see an orthopedic surgeon in [place] for this. She fell today and felt she had sustained a new fracture. Evaluation in the emergency department revealed she had no new fractures and she is discharged home with some pain medications as she states she is out. Medical Records: Attestation: I reviewed the patient's medical records. Lab Data: Attestation: I reviewed the patient's lab results. Imaging Data^: Xray Ortho: Attestation: I personally reviewed and interpreted this imaging study as follows: Radiologist's impression: [address] [address] XRay Report Signed Patient: Kaylee Ch #: [id number] : 5Acct#:[id number] Age/Sex: 64 / FADM Date: 04/28/20 Loc: ERRoom/Bed: Attending Dr: Ordering Provider/Ordering MD: Morgan Gayle MD, [facility] [place] Date of Service: 04/28/20 Procedure(s): [place] [address] Accession Number(s): [id number] Report Number: [id number] PROCEDURE INFORMATION: Exam: XR Right Humerus Exam date and time: 04/28/2020 11:53 AM Age: 64 years old Clinical indication: Injury or trauma; Fall; Blunt trauma (contusions or hematomas); Arm, upper; Right TECHNIQUE: Imaging protocol: XR Right humerus Views: 2 or more views. COMPARISON: CR XR elbow RT min 3V* [id number] 04/14/2020 11:36 AM FINDINGS: Bones/joints: There is an oblique fracture through the glenoid that extends through the inferolateral aspect of the right scapula. The fracture fragment is displaced about 15 mm laterally at its inferior aspect. The right humerus appears to be intact with no humeral fractures. The humeral head is not dislocated. Soft tissues: Normal. XR/[place] [id number] IMPRESSION: Displaced fracture through the glenoid and lateral scapula. Dictated By:Clarence Munguia Signed By:Justin Munguia Date/Time:04/28/20 1237 DD/ 1236 Discharge Plan Discharge Patient Disposition: Home Clinical Impression: Fall (on) (from) other stairs and steps, initial encounter Glenoid fracture of shoulder Qualifiers: Encounter type: subsequent encounter Fracture type: closed Laterality: right Fracture healing: with routine healing Qualified Code(s): S42.141D - Displaced fracture of glenoid cavity of scapula, right shoulder, subsequent encounter for fracture with routine healing Fracture, scapula closed Qualifiers: Encounter type: subsequent encounter Scapula location: unspecified part of scapula Laterality: right Fracture healing: with routine healing Qualified Code(s): S42.101D - Fracture of unspecified part of scapula, right shoulder, subsequent encounter for fracture with routine healing Condition: Stable Prescriptions: [place] 5-325 mg tablet 1 tab PO Q8H PRN (Reason: shoulder fracture) Qty: 12 RF: 0 Continued potassium chloride 20 mEq tablet extended release 20 meq PO DAILY RF: 0 metformin 1,000 mg tablet 1,000 mg PO BID RF: 0 levothyroxine 75 mcg capsule 75 mcg PO DAILY RF: 0 pregabalin [Lyrica] 50 mg capsule 50 mg PO BID RF: 0 omeprazole 20 mg tablet,delayed release (DR/EC) 20 mg PO BID RF: 0 Folbic 2.5-25-2 mg tablet 1 tab PO DAILY RF: 0 propranolol 80 mg capsule,extended release 24 hr 80 mg PO BID RF: 0 oxybutynin chloride 5 mg tablet 5 mg PO BID RF: 0 duloxetine 60 mg capsule,delayed release(DR/EC) 120 mg PO DAILY RF: 0 lamotrigine 200 mg tablet 200 mg PO BID RF: 0 aspirin [Adult Low Dose Aspirin] 81 mg tablet,delayed release (DR/EC) 81 mg PO DAILY RF: 0 quetiapine 100 mg tablet 100 mg PO DAILY RF: 0 diazepam 10 mg tablet 20 mg PO DAILY PRN (Reason: Anxiety) RF: 0 Lantus U-100 Insulin 100 unit/mL solution 40 unit SUBCUT DAILY RF: 0 (DME) crutches Qty: 1 RF: 0 (DME) Crutches Qty: 1 RF: 0 (DME) ORTHO WEDGE Qty: 1 RF: 0 (DME) Ortho Wedge Shoe Qty: 1 RF: 0 celecoxib 200 mg capsule 200 mg PO BID Qty: 20 RF: 0 glimepiride 4 mg tablet 4 mg PO BID RF: 0 [place] 5-325 mg tablet 1 tab PO Q6H PRN (Reason: pain) Qty: 14 RF: 0 Discontinued hydrocodone-acetaminophen 5-325 mg tablet 1 tab PO Q6H PRN (Reason: pain) Qty: 10 RF: 0 Discharge Orders: Discharge Order (Routine); Ordered 04/28/20 Ordered By: Morgan Gayle Referrals: Carter Yusuf MD [Primary Care Provider] - 4-7 days Discharge Diet: Usual diet Discharge Activity: Increase activity as tolerated Patient Instructions: Scapular Fracture (ED), Fall Prevention (ED) Activity Restrictions/Additional Instructions: Return for any new or worsening symptoms. Follow-up with your primary care provider. Follow-up with your orthopedic surgeon as scheduled. Discharge Date/Time: 04/28/20 13:28 Coding Level of Care Code ED Home Day Care Provider for Chg Fwd Exam Comprehensive
[2020-04-28] MEDS: ketorolac 30 mg/mL INJ IM (11:57)
[2020-04-28 13:27] VITALS: BP 139/79; PULSE 72; RESP 18; O2SAT 97
== END 2020-04-28 13:28 | disposition home or self-care (01) ==
PROVIDERS: Emergency Provider Family Medicine; PCP Family Medicine
DX: S42.141A Displaced fracture of glenoid cavity of scapula, right shoulder, initial encounter for closed fracture (principal); Z79.82 Long term (current) use of aspirin; Z79.4 Long term (current) use of insulin; Z86.73 Personal history of transient ischemic attack (TIA), and cerebral infarction without residual deficits; E11.9 Type 2 diabetes mellitus without complications; I10 Essential (primary) hypertension; W01.0XXA Fall on same level from slipping, tripping and stumbling without subsequent striking against object, initial encounter
CPT/HCPCS: 12345; 73060; 96372; 99281; 99283; J1885

== ENCOUNTER → 2020-05-17 14:26 | Outpatient (BNVA) | payer MEDICARE, OTHER, SELFPAY | PROVIDERS: PCP Family Medicine; Visit Provider Orthopaedic Surgery | DX: S42.144D Nondisplaced fracture of glenoid cavity of scapula, right shoulder, subsequent encounter for fracture with routine healing (principal); X58.XXXD Exposure to other specified factors, subsequent encounter | CPT/HCPCS: 73030 ==

== ENCOUNTER 2020-05-19 06:00 | Outpatient (RCR) | payer MEDICARE, OTHER, SELFPAY | END 2020-06-07 23:59 | disposition home or self-care (01) | LOC: SPT 06:00 | PROVIDERS: PCP Family Medicine; Referring Provider Orthopaedic Surgery; Visit Provider Orthopaedic Surgery | DX: Z47.89 Encounter for other orthopedic aftercare (principal) | CPT/HCPCS: 97140; 97161 ==

== ENCOUNTER 2020-06-08 06:00 | Outpatient (RCR) | payer MEDICARE, OTHER, SELFPAY | END 2020-07-08 23:59 | disposition home or self-care (01) | LOC: SPT 06:00 | PROVIDERS: PCP Family Medicine; Referring Provider Orthopaedic Surgery; Visit Provider Orthopaedic Surgery | DX: S42.101D Fracture of unspecified part of scapula, right shoulder, subsequent encounter for fracture with routine healing (principal); X58.XXXD Exposure to other specified factors, subsequent encounter | CPT/HCPCS: 97110; 97140 ==

== ENCOUNTER → 2020-06-15 13:11 | Outpatient (BNVA) | payer MEDICARE, OTHER, SELFPAY | PROVIDERS: PCP Family Medicine; Visit Provider Orthopaedic Surgery | DX: S42.144D Nondisplaced fracture of glenoid cavity of scapula, right shoulder, subsequent encounter for fracture with routine healing (principal); X58.XXXD Exposure to other specified factors, subsequent encounter | CPT/HCPCS: 73030 ==

== ENCOUNTER 2020-07-06 12:40 | Emergency (ER) | payer MEDICARE, OTHER, SELFPAY ==
[2020-07-06 12:47] VITALS: BP 135/84; PULSE 81; RESP 15; TEMP 37.2; O2SAT 94; BMI 29.0
--- NOTE | 2020-07-06 12:48 | XR_ITS ---
WS: [id number] Exam: XR chest 1V portable [id number] Date/Time of Exam: 07/06/2020 12:55 PM Reason For Exam: cough Comparison 03/07/2020. The lungs are clear and fully inflated. Normal cardiomediastinal structures. Several old bilateral ri b fractures. Operative fusion of the lower cervical spine. XR/XR chest 1V portable [id number] IMPRESSION: 1. No acute cardiopulmonary finding.
[2020-07-06 12:59] VITALS: O2SAT 94
--- NOTE | 2020-07-06 13:01 | ED_ITS ---
HPI - COVID General: Chief Complaint: COVID symptoms Stated Complaint: COUGH, HEADACHE, EXPOSURE ON 06-27-20 Time Seen by Provider: 07/06/20 12:47 Triage information: Has fever, cough or shortness of breath . Exposure to COVID + person last 14 days History of Present Illness: HPI Narrative: 64-year-old female who presents emergency room with complaint of cough and low-grade fever. She had an exposure to someone who was known to be positive approximately 8 days ago. She has been progressively developing symptoms since then. This morning she was at [facility] and had a negative rapid test. She continues to have flulike symptoms cough laryngitis diarrhea. She denies anosmia MD complaint: reported COVID exposure Prior covid testing: yes, results known (Negative rapid Covid test today) Prior testing date: 07/06/20 COVID 19 common symptoms: positive fever(s), chills, cough, non-productive cough, dyspnea, fatigue, headache(s), throat pain, nasal congestion, nausea and diarrhea; negative loss of sense of smell and/or taste or vomiting COVID 19 other sytmptoms: negative chest pain, requiring oxygen or respiratory distress Onset (ago): day(s) Severity: mild Pertinent comorbid conditions: diabetes and hypertension Treatment prior to arrival: acetaminophen COVID Results: SARS-CoV-2 Antigen (Rapid) Negative (Negative) 07/06/20 13:35 07/06/20 Review of Systems Const: Reports: fever(s), chills and fatigue ENMT: Reports: throat pain and nasal congestion Card: Denies: chest pain, edema, dyspnea on exertion or orthopnea Resp: Reports: dyspnea and non-productive cough GI: Reports: nausea and diarrhea; Denies: vomiting : Denies: flank pain, difficulty voiding, dysuria, urinary frequency or urinary urgency Skin/Breast: Denies: rash or pruritus Neuro: Reports: headache(s) PFSH ED PFSH: Medical History (Updated 07/06/20 @ 14:30 by Melvin Cabrera DO) Chronic diarrhea CVA (cerebral vascular accident) History of anemia History of anxiety History of aphasia History of bipolar disorder History of depression History of GI bleed History of hypothyroidism History of posttraumatic stress disorder (PTSD) Hx of kidney disease Hx of primary hypertension Hx of type 2 diabetes mellitus Hypothyroidism Tension headache, chronic TIA (transient ischemic attack) Surgical History History of back surgery Hx of appendectomy Hx of cholecystectomy Hx of hysterectomy Hx of neck surgery Social History Smoking and tobacco status: never smoked Alcohol intake: current Alcohol intake frequency: holidays/special occasions only Physical Exam Const: COMMON NORMALS: no acute distress GENERAL APPEARANCE: cooperative and comfortable ORIENTATION/CONSCIOUSNESS: Yes awake, Yes oriented to person, Yes oriented to place and Yes oriented to time HENMT: COMMON NORMALS: normocephalic, atraumatic and hearing grossly normal bilaterally HEAD & SCALP: normocephalic and atraumatic Neck/C-Spine: COMMON NORMALS: no JVD Resp: COMMON NORMALS: normal respiratory effort, No retractions, No use of accessory muscles and clear to auscultation bilaterally AUSCULTATION: clear to auscultation bilaterally Cardio: COMMON NORMALS: no JVD, regular rate, regular rhythm and No murmurs present (Cardio) RATE: regular rate RHYTHM: regular rhythm GI: COMMON NORMALS: Soft to palpation and No hepatosplenomegaly present AUSCULTATION: Yes normoactive bowel sounds PALPATION: Yes Soft to palpation, No Tenderness to palpation present (GI), No Guarding due to palpation present (GI) and Yes No hepatosplenomegaly present Extremity: COMMON NORMALS: normal to inspection, capillary refill normal, no clubbing, cyanosis or edema, no calf tenderness and no pedal edema Neuro: SENSORIUM/ORIENTATION: Yes oriented to person, Yes oriented to place and Yes oriented to time Skin: COMMON NORMALS: no rashes or lesions noted GENERAL SKIN EXAM: no rashes or lesions noted Course Vital Signs: Vital signs: Vital Signs Temperature 99.0 F 07/06/20 12:47 Pulse Rate 73 07/06/20 15:02 Respiratory Rate 16 07/06/20 15:02 Blood Pressure 110/75 07/06/20 15:02 Pulse Oximetry 93 07/06/20 15:02 MDM - COVID MDM Narrative: Medical decision making narrative: Start home maintain self quarantine if positive will contact patient to consider monoclonal antibody infusion Lab Data: Labs: Lab Results 07/06/20 Range/Units 13:35 SARS-CoV-2 Ag (Rap id) Negative (Negative) COVID Results: SARS-CoV-2 Antigen (Rapid) Negative (Negative) 07/06/20 13:35 07/06/20 Discharge Plan Discharge Patient Disposition: Home Clinical Impression: Upper respiratory infection, Suspected COVID-19 virus infection Condition: Stable Prescriptions: New dexamethasone 6 mg tablet 6 mg PO DAILY Qty: 7 RF: 0 albuterol sulfate 90 mcg/actuation HFA aerosol inhaler 2 inh INHALATION Q4H PRN (Reason: shortness of breath or wheezing) Qty: 18 RF: 0 No Action potassium chloride 20 mEq tablet extended release 20 meq PO DAILY RF: 0 metformin 1,000 mg tablet 1,000 mg PO BID RF: 0 levothyroxine 75 mcg capsule 75 mcg PO DAILY RF: 0 pregabalin [Lyrica] 50 mg capsule 50 mg PO BID RF: 0 omeprazole 20 mg tablet,delayed release (DR/EC) 20 mg PO BID RF: 0 Folbic 2.5-25-2 mg tablet 1 tab PO DAILY RF: 0 propranolol 80 mg capsule,extended release 24 hr 80 mg PO BID RF: 0 oxybutynin chloride 5 mg tablet 5 mg PO BID RF: 0 duloxetine 60 mg capsule,delayed release(DR/EC) 120 mg PO DAILY RF: 0 lamotrigine 200 mg tablet 200 mg PO BID RF: 0 aspirin [Adult Low Dose Aspirin] 81 mg tablet,delayed release (DR/EC) 81 mg PO DAILY RF: 0 quetiapine 100 mg tablet 100 mg PO DAILY RF: 0 diazepam 10 mg tablet 20 mg PO DAILY PRN (Reason: Anxiety) RF: 0 Lantus U-100 Insulin 100 unit/mL solution 40 unit SUBCUT DAILY RF: 0 hydrocodone-acetaminophen [[place]] 5-325 mg tablet 1 tab PO Q4H PRN (Reason: pain) 7 Days Qty: 30 RF: 0 (DME) crutches Qty: 1 RF: 0 (DME) Crutches Qty: 1 RF: 0 (DME) ORTHO WEDGE Qty: 1 RF: 0 hydrocodone-acetaminophen [[place]] 10-325 mg tablet 1 tab PO Q6H PRN (Reason: pain) 7 Days Qty: 20 RF: 0 (DME) Ortho Wedge Shoe Qty: 1 RF: 0 hydrocodone-acetaminophen [[place]] 5-325 mg tablet 1 tab PO Q4H PRN (Reason: pain) 7 Days Qty: 30 RF: 0 hydrocodone-acetaminophen [[place]] 5-325 mg tablet 1 tab PO Q4H PRN (Reason: pain) 7 Days Qty: 30 RF: 0 celecoxib 200 mg capsule 200 mg PO BID Qty: 20 RF: 0 [place] 5-325 mg tablet 1 tab PO Q8H PRN (Reason: shoulder fracture) Qty: 12 RF: 0 glimepiride 4 mg tablet 4 mg PO BID RF: 0 [place] 5-325 mg tablet 1 tab PO Q6H PRN (Reason: pain) Qty: 14 RF: 0 Discharge Orders: Discharge ED (Routine); Ordered 07/06/20 Ordered By: Melvin Cabrera Referrals: Carter Yusuf MD [Primary Care Provider] - Discharge Diet: Usual diet Discharge Activity: Limit activity as instructed Activity Restrictions/Additional Instructions: We will follow-up with you with the final Covid swab. Clinically I do suspect to have Covid and recommend that you maintain self quarantine until the results are available. If you are positive you would be a good candidate for monoclonal antibody infusion which can be arranged as an outpatient through your primary care provider. Coding Level of Care Code ED Multimedia Services Manager for Jaret Fwd Exam Comprehensive
[2020-07-06 13:37] VITALS: BP 141/77; PULSE 78; RESP 18; O2SAT 93
[2020-07-06 14:00] VITALS: BP 138/80; PULSE 79; RESP 18; O2SAT 92
[2020-07-06 14:19] LABS: SARS Covid-2 Antigen Negative (Negative)
[2020-07-06 14:27] VITALS: O2SAT 95; O2SAT 97
--- NOTE | 2020-07-06 14:36 | PC.NURSE ---
Waiting for Home O2 evaluations
[2020-07-06 15:02] VITALS: BP 110/75; PULSE 73; RESP 16; O2SAT 93
--- NOTE | 2020-07-06 15:12 | DCPLANNER ---
project/production manager imaging was asked to arrange for transportation for patient. project/production manager imaging called [facility] - the taxi came and picked up patient.
== END 2020-07-06 15:02 | disposition home or self-care (01) ==
PROVIDERS: Emergency Provider Family Medicine; PCP Family Medicine
DX: J06.9 Acute upper respiratory infection, unspecified (principal); Z20.828 Contact with and (suspected) exposure to other viral communicable diseases; Z79.4 Long term (current) use of insulin; Z79.82 Long term (current) use of aspirin; Z86.73 Personal history of transient ischemic attack (TIA), and cerebral infarction without residual deficits; I10 Essential (primary) hypertension; E11.9 Type 2 diabetes mellitus without complications
CPT/HCPCS: 12345; 71045; 87426; 99283

== ENCOUNTER → 2020-07-20 15:36 | Outpatient (BNVA) | payer MEDICARE, OTHER, SELFPAY | PROVIDERS: PCP Family Medicine; Visit Provider Orthopaedic Surgery | DX: S42.144D Nondisplaced fracture of glenoid cavity of scapula, right shoulder, subsequent encounter for fracture with routine healing (principal); X58.XXXD Exposure to other specified factors, subsequent encounter | CPT/HCPCS: 73030 ==

== ENCOUNTER 2020-10-16 22:11 | Emergency (ER) | payer MEDICARE, OTHER, SELFPAY ==
[2020-10-16 22:31] VITALS: BP 155/114; PULSE 96; RESP 16; TEMP 36.9; O2SAT 94; BMI 30.7
[2020-10-16 22:34] VITALS: BP 155/114; PULSE 94; RESP 21; O2SAT 93
--- NOTE | 2020-10-16 22:41 | W.ED.GENADLT ---
HPI - General Adult General: Chief complaint: General Medical Stated complaint: HIGH BLOOD SUGAR Time Seen by Provider: 10/16/20 22:40 Source: patient Mode of arrival: ambulatory Limitations: no limitations History of Present Illness: HPI narrative: 64-year-old female comes in today with complaints of elevated blood sugar. Patient noted that her blood sugar was above 400 this evening. Patient denies any other symptoms except for a feeling of fatigue. Patient does take a insulin for the treatment of her diabetes. Onset (ago): day(s) Review of Systems General: Reports: 10 or more systems reviewed and unremarkable except in HPI and below Endo: Reports: other (Elevated blood sugar) [facility] ED PFSH: Medical History (Updated 10/17/20 @ 00:34 by LIGIA Caro) Chronic diarrhea CVA (cerebral vascular accident) History of anemia History of anxiety History of aphasia History of bipolar disorder History of depression History of GI bleed History of hypothyroidism History of posttraumatic stress disorder (PTSD) Hx of kidney disease Hx of primary hypertension Hx of type 2 diabetes mellitus Hypothyroidism Tension headache, chronic TIA (transient ischemic attack) Surgical History History of back surgery Hx of appendectomy Hx of cholecystectomy Hx of hysterectomy Hx of neck surgery Social History Smoking and tobacco status: never smoked Alcohol intake: current Alcohol intake frequency: holidays/special occasions only Physical Exam Const: COMMON NORMALS: no acute distress and patient oriented x3 GENERAL APPEARANCE: cooperative HENMT: COMMON NORMALS: normocephalic and Normal external nose present HEAD & SCALP: normal to inspection and normocephalic NOSE: Normal external nose present MOUTH: Normal oral and palatal mucosa present THROAT: posterior oropharynx normal Eye: GENERAL EYE: appearance normal, both eyes and all related structures Neck/C-Spine: COMMON NORMALS: full ROM Lymph: LYMPHATIC: no lymphadenopathy noted Chest: COMMONS NORMALS: normal inspection of the chest Resp: COMMON NORMALS: normal respiratory effort EFFORT & INSPECTION: Yes able to speak in complete sentences Cardio: COMMON NORMALS: regular rate and regular rhythm RATE: regular rate RHYTHM: regular rhythm GI: COMMON NORMALS: Soft to palpation PALPATION: Yes Soft to palpation : COMMON NORMALS: Yes no CVA tenderness BLADDER/KIDNEY EXAM: Yes no CVA tenderness Back/Pelvis: COMMON NORMALS: no CVA tenderness and thoracic and lumbar spine normal to inspection Extremity: COMMON NORMALS: normal to inspection Neuro: COMMON NORMALS: patient oriented x3 and moves all extremities Psych: COMMON NORMALS: mental status grossly normal and cooperative Skin: COMMON NORMALS: no rashes or lesions noted GENERAL SKIN EXAM: no rashes or lesions noted Course Vital Signs: Vital signs: Vital Signs Temperature 98.4 F 10/16/20 22:31 Pulse Rate 94 10/16/20 22:34 Respiratory Rate 21 H 10/16/20 22:34 Blood Pressure 155/114 10/16/20 22:34 Pulse Oximetry 93 10/16/20 22:34 MDM - General Adult MDM Narrative: Medical decision making narrative: Patient comes in today for complaints of elevated blood sugar. Patient's blood glucose was 430. Lungs were clear to auscultation. Abdomen soft nontender. Skin was warm and dry. No acute distress was noted. Differential diagnosis includes urinary tract infection, poor diabetic control. Noncompliance of medication. Laboratory values showed a blood glucose of 416. Potassium was 4.8, sodium was 133. Patient was given 1 L of IV fluids and 8 units of insulin. Patient serum ketones were negative and anion gap was unremarkable. No signs of diabetic ketoacidosis noted. Blood glucose came down to 344. Reviewed recommendations of adjustment for basal insulin with follow-up with primary care. Patient reported understanding and agreed to plan. Patient also requested some diabetic education referral. Case management will be consulted. Lab Data: Labs: Lab Results 10/16/20 10/16/20 10/16/20 Range/Units 22:45 23:00 23:00 WBC 8.5 (4.0-10.0) 10^3/ uL RBC 4.28 (4.1-5.3) 10^6/u L Hgb 12.7 (11.5-15.3) g/dL Hct 41.4 (37.0-47.0) % MCV 96.7 (81-99) fL MCH 29.7 (28.0-34.0) pg MCHC 30.7 (30.0-36.0) g/dL RDW 12.7 (12.1-15.1) % Plt Count 294 (130-400) 10^3/c mm MPV 9.8 (7.4-10.4) fL Neut % (Auto) 46.9 % Lymph % (Auto) 39.0 % Archer % (Auto) 9.5 % Eos % (Auto) 3.5 % Baso % (Auto) 0.6 % Neut # (Auto) 4.00 (1.8-7.7) 10^3/u L Lymph # (Auto) 3.3 (0.8-4.8) 10^3/u L Archer # (Auto) 0.8 (0.2-0.9) 10^3/u L Eos # (Auto) 0.3 (0.0-0.8) 10^3/u L Baso # (Auto) 0.1 (0.0-0.1) 10^3/u L Nucleated RBC % (a uto) 0 % Nucleated RBCs # 0.0 /100WBC Sodium 133 L (136-145) mmol/L Potassium 4.8 (3.5-5.1) mmol/L Chloride 97 L (98-107) mmol/L Carbon Dioxide 26 (22-29) mmol/L Anion Gap 14.8 (5-19) BUN 23 (8-23) mg/dL Creatinine 0.9 (0.5-0.9) mg/dL GFR Calculation 62.8 L (90-130) mL/min Glucose 416 H (65-115) mg/dL POC Glucose 436 H (70-110) mg/dL Calculated Osmolal ity 297 H (285-295) mOsm/k g Calcium 8.6 (8.5-10.5) mg/dL Total Bilirubin 0.2 (0.15-1.2) mg/dL AST 11 (0-32) U/L ALT 21 (0-33) U/L Alkaline Phosphata se 95 (35-105) IU/L Total Protein 6.4 L (6.6-8.7) g/dL Albumin 3.9 (3.5-5.2) g/dL Globulin 2.5 (1.3-4.6) g/dL Urine Color (Yellow) Urine Appearance (CLEAR) Urine pH (5-7) Ur Specific Gravit y (1.005-1.030) Urine Protein (Negative) Urine Glucose (UA) (Normal) Urine Ketones (Negative) Urine Blood (Negative) Urine Nitrate (Negative) Urine Bilirubin (Negative) Urine Urobilinogen (Negative) mg/dL Ur Leukocyte Yoko ase (Negative) Serum Ketones (Negative) 10/16/20 10/16/20 Range/Units 23:00 23:15 WBC (4.0-10.0) 10^3/ uL RBC (4.1-5.3) 10^6/u L Hgb (11.5-15.3) g/dL Hct (37.0-47.0) % MCV (81-99) fL MCH (28.0-34.0) pg MCHC (30.0-36.0) g/dL RDW (12.1-15.1) % Plt Count (130-400) 10^3/c mm MPV (7.4-10.4) fL Neut % (Auto) % Lymph % (Auto) % Archer % (Auto) % Eos % (Auto) % Baso % (Auto) % Neut # (Auto) (1.8-7.7) 10^3/u L Lymph # (Auto) (0.8-4.8) 10^3/u L Archer # (Auto) (0.2-0.9) 10^3/u L Eos # (Auto) (0.0-0.8) 10^3/u L Baso # (Auto) (0.0-0.1) 10^3/u L Nucleated RBC % (a uto) % Nucleated RBCs # /100WBC Sodium (136-145) mmol/L Potassium (3.5-5.1) mmol/L Chloride (98-107) mmol/L Carbon Dioxide (22-29) mmol/L Anion Gap (5-19) BUN (8-23) mg/dL Creatinine (0.5-0.9) mg/dL GFR Calculation (90-130) mL/min Glucose (65-115) mg/dL POC Glucose (70-110) mg/dL Calculated Osmolal ity (285-295) mOsm/k g Calcium (8.5-10.5) mg/dL Total Bilirubin (0.15-1.2) mg/dL AST (0-32) U/L ALT (0-33) U/L Alkaline Phosphata se (35-105) IU/L Total Protein (6.6-8.7) g/dL Albumin (3.5-5.2) g/dL Globulin (1.3-4.6) g/dL Urine Color Yellow (Yellow) Urine Appearance Clear (CLEAR) Urine pH 5 (5-7) Ur Specific Gravit y 1.005 (1.005-1.030) Urine Protein Neg (Negative) Urine Glucose (UA) 4+ H (Normal) Urine Ketones Negative (Negative) Urine Blood Neg (Negative) Urine Nitrate Negative (Negative) Urine Bilirubin Neg (Negative) Urine Urobilinogen Norm (Negative) mg/dL Ur Leukocyte Yoko ase Negative (Negative) Serum Ketones Negative (Negative) Discharge Plan Discharge Patient Disposition: Home Clinical Impression: Blood glucose elevated Condition: Stable Prescriptions: No Action potassium chloride 20 mEq tablet extended release 20 meq PO DAILY RF: 0 metformin 1,000 mg tablet 1,000 mg PO BID RF: 0 levothyroxine 75 mcg capsule 75 mcg PO DAILY RF: 0 pregabalin [Lyrica] 50 mg capsule 50 mg PO BID RF: 0 omeprazole 20 mg tablet,delayed release (DR/EC) 20 mg PO BID RF: 0 Folbic 2.5-25-2 mg tablet 1 tab PO DAILY RF: 0 propranolol 80 mg capsule,extended release 24 hr 80 mg PO BID RF: 0 oxybutynin chloride 5 mg tablet 5 mg PO BID RF: 0 duloxetine 60 mg capsule,delayed release(DR/EC) 120 mg PO DAILY RF: 0 lamotrigine 200 mg tablet 200 mg PO BID RF: 0 aspirin [Adult Low Dose Aspirin] 81 mg tablet,delayed release (DR/EC) 81 mg PO DAILY RF: 0 quetiapine 100 mg tablet 100 mg PO DAILY RF: 0 diazepam 10 mg tablet 20 mg PO DAILY PRN (Reason: Anxiety) RF: 0 Lantus U-100 Insulin 100 unit/mL solution 40 unit SUBCUT DAILY RF: 0 hydrocodone-acetaminophen [Compton] 5-325 mg tablet 1 tab PO Q4H PRN (Reason: pain) 7 Days Qty: 30 RF: 0 (DME) crutches Qty: 1 RF: 0 (DME) Crutches Qty: 1 RF: 0 (DME) ORTHO WEDGE Qty: 1 RF: 0 hydrocodone-acetaminophen [Compton] 10-325 mg tablet 1 tab PO Q6H PRN (Reason: pain) 7 Days Qty: 20 RF: 0 (DME) Ortho Wedge Shoe Qty: 1 RF: 0 hydrocodone-acetaminophen [Compton] 5-325 mg tablet 1 tab PO Q4H PRN (Reason: pain) 7 Days Qty: 30 RF: 0 hydrocodone-acetaminophen [Compton] 5-325 mg tablet 1 tab PO Q4H PRN (Reason: pain) 7 Days Qty: 30 RF: 0 celecoxib 200 mg capsule 200 mg PO BID Qty: 20 RF: 0 Compton 5-325 mg tablet 1 tab PO Q8H PRN (Reason: shoulder fracture) Qty: 12 RF: 0 dexamethasone 6 mg tablet 6 mg PO DAILY Qty: 7 RF: 0 albuterol sulfate 90 mcg/actuation HFA aerosol inhaler 2 inh INHALATION Q4H PRN (Reason: shortness of breath or wheezing) Qty: 18 RF: 0 glimepiride 4 mg tablet 4 mg PO BID RF: 0 Compton 5-325 mg tablet 1 tab PO Q6H PRN (Reason: pain) Qty: 14 RF: 0 Discharge Orders: Discharge ED (Routine); Ordered 10/17/20 Ordered By: Sam Kelley Referrals: Carter Yusuf MD [Primary Care Provider] - Discharge Diet: Usual diet Discharge Activity: Increase activity as tolerated Patient Instructions: Diabetic Hyperglycemia (ED), Opioid Safety Activity Restrictions/Additional Instructions: Home and rest. Healthy diet and exercise. Continue routine medications as ordered. Follow-up with primary care on Sunday to discuss medication changes. Return to the emergency department for new concerns. Coding Level of Care Code ED Sebd Teacher for Jaret Deal Exam Comprehensive
[2020-10-16 23:01] LABS: Glucose Point of Care 436 mg/dL (70-110)
[2020-10-16 23:04] LABS: Basophils # 0.1 10^3/uL (0.0-0.1); Basophils % 0.6 %; Eosinophils # 0.3 10^3/uL (0.0-0.8); Eosinophils % 3.5 %; Hematocrit 41.4 % (37.0-47.0); Hemoglobin 12.7 g/dL (11.5-15.3); Lymphocytes # 3.3 10^3/uL (0.8-4.8); Mean Corpuscular HGB Conc 30.7 g/dL (30.0-36.0); Mean Corpuscular Hemoglobin 29.7 pg (28.0-34.0); Mean Corpuscular Volume 96.7 fL (81-99); Mean Platelet Volume 9.8 fL (7.4-10.4); Monocytes # 0.8 10^3/uL (0.2-0.9); Monocytes % 9.5 %; Neutrophils % 46.9 %; Nucleated Red Blood Cells % 0 %; Platelet Count 294 10^3/cmm (130-400); Red Blood Count 4.28 10^6/uL (4.1-5.3); Red Cell Distribution Width 12.7 % (12.1-15.1); White Blood Count 8.5 10^3/uL (4.0-10.0)
[2020-10-16 23:17] LABS: Ketone (Acetest) Serum Negative (Negative)
[2020-10-16 23:20] LABS: Alanine Aminotransferase 21 U/L (0-33); Albumin Level 3.9 g/dL (3.5-5.2); Alkaline Phosphatase 95 IU/L (35-105); Anion Gap 14.8 (5-19); Aspartate Amino Transferase 11 U/L (0-32); Blood Urea Nitrogen 23 mg/dL (8-23); Calcium 8.6 mg/dL (8.5-10.5); Carbon Dioxide 26 mmol/L (22-29); Chloride 97 mmol/L (98-107); Globulin 2.5 g/dL (1.3-4.6); Glomerular Filtration Rate 62.8 mL/min (90-130); Glucose 416 mg/dL (65-115); Osmolality Calculated 297 mOsm/kg (285-295); Potassium 4.8 mmol/L (3.5-5.1); Sodium 133 mmol/L (136-145); Total Bilirubin 0.2 mg/dL (0.15-1.2); Total Protein 6.4 g/dL (6.6-8.7)
[2020-10-16 23:24] LABS: Add Urine Microscopic? NO; Charge for UA Resulting for Rev
[2020-10-16 23:26] LABS: Bilirubin Urine Neg (Negative); Blood Urine Neg (Negative); Glucose Urine UA 4+ (Normal); Ketones Urine Negative (Negative); Leukocyte Esterase Urine Negative (Negative); Nitrate Urine Negative (Negative); Protein Urine Neg (Negative); Specific Gravity, Urine 1.005 (1.005-1.030); Urine Appearance Clear (CLEAR); Urine Color Yellow (Yellow); Urobilinogen Urine Norm (Negative); pH Urine 5 (5-7)
[2020-10-16] MEDS: insulin regular-human 100 units/1 mL 8 UNIT IVP (23:41)
[2020-10-17 00:40] LABS: Glucose Point of Care 344 mg/dL (70-110)
[2020-10-17 01:23] VITALS: BP 147/100; PULSE 89; RESP 18; O2SAT 96
--- NOTE | 2020-10-19 10:06 | DCPLANNER ---
Addendum entered by Maritza German 10/19/20 14:28: software sales manager was given a nutrition guide to send to patient. software sales manager called patient and informed patient that case management social worker was going to send patient a nutrition guide. software sales manager also told patient that if patient wanted more information than she could call the hospital and speak with the joinery setter out to get more information. Original Note: software sales manager called [facility] nutrition to speak with the joinery setter out about education for patient. software sales manager was unable to speak with joinery setter out at this time, a message was left for the joinery setter out to call case management social worker back.
== END 2020-10-17 00:38 | disposition home or self-care (01) ==
PROVIDERS: Emergency Provider Nurse Practitioner Family; PCP Family Medicine
DX: E11.65 Type 2 diabetes mellitus with hyperglycemia (principal); Z79.82 Long term (current) use of aspirin; Z79.4 Long term (current) use of insulin; Z86.73 Personal history of transient ischemic attack (TIA), and cerebral infarction without residual deficits; I10 Essential (primary) hypertension
CPT/HCPCS: 36416; 80053; 81003; 82009; 82962; 85025; 96374; 99283; J1815

== ENCOUNTER 2020-10-17 20:37 | Emergency (ER) | payer MEDICARE, OTHER, SELFPAY ==
[2020-10-17 21:02] VITALS: BP 162/92; PULSE 99; RESP 15; TEMP 37.1; O2SAT 98; BMI 30.7
[2020-10-17 23:10] LABS: Glucose Point of Care 277 mg/dL (70-110)
== END 2020-10-17 21:30 ==
LOC: ER 21:18
PROVIDERS: Emergency Provider Nurse Practitioner Family; PCP Family Medicine
DX: Z53.21 Procedure and treatment not carried out due to patient leaving prior to being seen by health care provider (principal)
CPT/HCPCS: 36416; 82962

== ENCOUNTER 2020-11-12 12:42 | Emergency (ER) | payer MEDICARE, OTHER, SELFPAY ==
[2020-11-12 12:54] VITALS: BP 134/78; PULSE 71; RESP 18; TEMP 36.1; O2SAT 95; BMI 32.3
--- NOTE | 2020-11-12 14:17 | XR_ITS ---
WS: [id number] Portable AP upright chest, 11/12/2020 Clinical Data: dyspnea/cough Comparison: Portable chest, 07/06/2020. Findings: No nodules, masses or effusions are seen. The heart is normal. The pulmonary vascularity is not increased. No pneumonia or pneumothorax is seen. There is calcification of the aortic arch. The patient has had an anterior cervical disc fusion of the lower cervical spine. There is osteoarthritic change of the right shoulder with calcification adjacent to the lateral border of the right scapula. XR/XR chest 1V portable [id number] Impression: Atherosclerosis.
[2020-11-12] MEDS: sodium chloride 0.9% 1,000 ML 999 ML IV (14:38)
[2020-11-12 14:50] LABS: Basophils # 0.1 10^3/uL (0.0-0.1); Basophils % 0.7 %; Eosinophils # 0.3 10^3/uL (0.0-0.8); Eosinophils % 3.6 %; Lymphocytes # 3.1 10^3/uL (0.8-4.8); Lymphocytes % 34.1 %; Mean Corpuscular HGB Conc 31.1 g/dL (30.0-36.0); Mean Corpuscular Hemoglobin 29.4 pg (28.0-34.0); Mean Corpuscular Volume 94.3 fL (81-99); Mean Platelet Volume 9.3 fL (7.4-10.4); Monocytes # 0.8 10^3/uL (0.2-0.9); Neutrophils # 4.77 10^3/uL (1.8-7.7); Neutrophils % 52.2 %; Nucleated Red Blood Cells % 0 %; Platelet Count 363 10^3/cmm (130-400); Red Blood Count 4.77 10^6/uL (4.1-5.3); Red Cell Distribution Width 12.4 % (12.1-15.1); White Blood Count 9.1 10^3/uL (4.0-10.0)
[2020-11-12 15:04] LABS: Ketone (Acetest) Serum Negative (Negative)
--- NOTE | 2020-11-12 15:09 | W.ED.GENADLT ---
HPI - General Adult General: Chief complaint: General Medical Stated complaint: HIGH BLOOD SUGAR, FEELS LIKE GOING TO PASS OUT Time Seen by Provider: 11/12/20 13:56 History of Present Illness: HPI narrative: 64-year-old female presents emergency room chief complaint of elevated blood sugar is just not feeling well she checked her blood sugar at home said it was 497 when she was checked here it was 311 she found this quite alarming. Generally she has been been feeling nauseous she has a little bit of a headache she denies dysuria urgency frequency shortness of breath no vomiting or diarrhea. Not had any recent changes in her diabetic medications. Onset (ago): hour(s) Location: head Severity: mild Relieving factors: none Exacerbating factors: none Associated symptoms: Reports decreased appetite, malaise and nausea; Deny chest pain, confusion, cough, diaphoresis, dyspnea, fevers/chills, headache(s), rash, palpitations, seizures, short of breath, syncope, vomiting or weakness Treatments prior to arrival: none Review of Systems Const: Reports: malaise; Denies: diaphoresis Card: Denies: chest pain, palpitations or syncope Resp: Denies: dyspnea GI: Reports: nausea; Denies: vomiting Skin/Breast: Denies: rash Neuro: Denies: headache(s) or confusion PFSH ED PFSH: Medical History (Updated 11/12/20 @ 15:56 by Melvin Cabrera DO) Chronic diarrhea CVA (cerebral vascular accident) History of anemia History of anxiety History of aphasia History of bipolar disorder History of depression History of GI bleed History of hypothyroidism History of posttraumatic stress disorder (PTSD) Hx of kidney disease Hx of primary hypertension Hx of type 2 diabetes mellitus Hypothyroidism Tension headache, chronic TIA (transient ischemic attack) Surgical History History of back surgery Hx of appendectomy Hx of cholecystectomy Hx of hysterectomy Hx of neck surgery Social History Smoking and tobacco status: never smoked Alcohol intake: current Alcohol intake frequency: holidays/special occasions only Physical Exam Const: COMMON NORMALS: no acute distress GENERAL APPEARANCE: cooperative and comfortable ORIENTATION/CONSCIOUSNESS: Yes awake, Yes oriented to person, Yes oriented to place and Yes oriented to time HENMT: COMMON NORMALS: normocephalic, atraumatic and hearing grossly normal bilaterally HEAD & SCALP: normocephalic and atraumatic Neck/C-Spine: COMMON NORMALS: no JVD Resp: COMMON NORMALS: normal respiratory effort, No retractions, No use of accessory muscles and clear to auscultation bilaterally AUSCULTATION: clear to auscultation bilaterally Cardio: COMMON NORMALS: no JVD, regular rate, regular rhythm and No murmurs present (Cardio) RATE: regular rate RHYTHM: regular rhythm GI: COMMON NORMALS: Soft to palpation and No hepatosplenomegaly present AUSCULTATION: Yes normoactive bowel sounds PALPATION: Yes Soft to palpation, No Tenderness to palpation present (GI), No Guarding due to palpation present (GI) and Yes No hepatosplenomegaly present Extremity: COMMON NORMALS: normal to inspection, capillary refill normal, no clubbing, cyanosis or edema, no calf tenderness and no pedal edema Neuro: SENSORIUM/ORIENTATION: Yes oriented to person, Yes oriented to place and Yes oriented to time Skin: COMMON NORMALS: no rashes or lesions noted GENERAL SKIN EXAM: no rashes or lesions noted Course Vital Signs: Vital signs: Vital Signs Temperature 96.9 F L 11/12/20 12:54 Pulse Rate 71 11/12/20 12:54 Respiratory Rate 18 11/12/20 12:54 Blood Pressure 134/78 11/12/20 12:54 Pulse Oximetry 95 11/12/20 12:54 MDM - General Adult MDM Narrative: Medical decision making narrative: Blood sugars improved after fluids. Reviewed with patient we will go ahead and discharge her home follow-up with her primary care doctor within the week with blood sugar logs. Continue to monitor blood sugar closely at home. Avoid concentrated sugars. Lab Data: Labs: Lab Results 11/12/20 11/12/20 11/12/20 Range/Units 12:56 14:40 14:40 WBC 9.1 (4.0-10.0) 10^3/ uL RBC 4.77 (4.1-5.3) 10^6/u L Hgb 14.0 (11.5-15.3) g/dL Hct 45.0 (37.0-47.0) % MCV 94.3 (81-99) fL MCH 29.4 (28.0-34.0) pg MCHC 31.1 (30.0-36.0) g/dL RDW 12.4 (12.1-15.1) % Plt Count 363 (130-400) 10^3/c mm MPV 9.3 (7.4-10.4) fL Neut % (Auto) 52.2 % Lymph % (Auto) 34.1 % Clinch % (Auto) 9.0 % Eos % (Auto) 3.6 % Baso % (Auto) 0.7 % Neut # (Auto) 4.77 (1.8-7.7) 10^3/u L Lymph # (Auto) 3.1 (0.8-4.8) 10^3/u L Clinch # (Auto) 0.8 (0.2-0.9) 10^3/u L Eos # (Auto) 0.3 (0.0-0.8) 10^3/u L Baso # (Auto) 0.1 (0.0-0.1) 10^3/u L Nucleated RBC % (a uto) 0 % Nucleated RBCs # 0.0 /100WBC Sodium 134 L (136-145) mmol/L Potassium 4.4 (3.5-5.1) mmol/L Chloride 95 L (98-107) mmol/L Carbon Dioxide 29 (22-29) mmol/L Anion Gap 14.4 (5-19) BUN 19 (8-23) mg/dL Creatinine 0.8 (0.5-0.9) mg/dL GFR Calculation 72.0 L (90-130) mL/min Glucose 199 H (65-115) mg/dL POC Glucose 311 H (70-110) mg/dL Calculated Osmolal ity 286 (285-295) mOsm/k g Calcium 10.0 (8.5-10.5) mg/dL Total Bilirubin 0.2 (0.15-1.2) mg/dL AST 15 (0-32) U/L ALT 28 (0-33) U/L Alkaline Phosphata se 117 H (35-105) IU/L Creatine Kinase 33 (26-192) U/L Total Protein 8.0 (6.6-8.7) g/dL Albumin 4.6 (3.5-5.2) g/dL Globulin 3.4 (1.3-4.6) g/dL Urine Color (Yellow) Urine Appearance (CLEAR) Urine pH (5-7) Ur Specific Gravit y (1.005-1.030) Urine Protein (Negative) Urine Glucose (UA) (Normal) Urine Ketones (Negative) Urine Blood (Negative) Urine Nitrate (Negative) Urine Bilirubin (Negative) Urine Urobilinogen (Negative) mg/dL Ur Leukocyte Yoko ase (Negative) Serum Ketones (Negative) 11/12/20 11/12/20 Range/Units 14:40 15:38 WBC (4.0-10.0) 10^3/ uL RBC (4.1-5.3) 10^6/u L Hgb (11.5-15.3) g/dL Hct (37.0-47.0) % MCV (81-99) fL MCH (28.0-34.0) pg MCHC (30.0-36.0) g/dL RDW (12.1-15.1) % Plt Count (130-400) 10^3/c mm MPV (7.4-10.4) fL Neut % (Auto) % Lymph % (Auto) % Clinch % (Auto) % Eos % (Auto) % Baso % (Auto) % Neut # (Auto) (1.8-7.7) 10^3/u L Lymph # (Auto) (0.8-4.8) 10^3/u L Clinch # (Auto) (0.2-0.9) 10^3/u L Eos # (Auto) (0.0-0.8) 10^3/u L Baso # (Auto) (0.0-0.1) 10^3/u L Nucleated RBC % (a uto) % Nucleated RBCs # /100WBC Sodium (136-145) mmol/L Potassium (3.5-5.1) mmol/L Chloride (98-107) mmol/L Carbon Dioxide (22-29) mmol/L Anion Gap (5-19) BUN (8-23) mg/dL Creatinine (0.5-0.9) mg/dL GFR Calculation (90-130) mL/min Glucose (65-115) mg/dL POC Glucose (70-110) mg/dL Calculated Osmolal ity (285-295) mOsm/k g Calcium (8.5-10.5) mg/dL Total Bilirubin (0.15-1.2) mg/dL AST (0-32) U/L ALT (0-33) U/L Alkaline Phosphata se (35-105) IU/L Creatine Kinase (26-192) U/L Total Protein (6.6-8.7) g/dL Albumin (3.5-5.2) g/dL Globulin (1.3-4.6) g/dL Urine Color Straw (Yellow) Urine Appearance Clear (CLEAR) Urine pH 8 H (5-7) Ur Specific Gravit y 1.005 (1.005-1.030) Urine Protein Neg (Negative) Urine Glucose (UA) 2+ (Normal) Urine Ketones Negative (Negative) Urine Blood Neg (Negative) Urine Nitrate Negative (Negative) Urine Bilirubin Neg (Negative) Urine Urobilinogen Norm (Negative) mg/dL Ur Leukocyte Yoko ase Negative (Negative) Serum Ketones Negative (Negative) Discharge Plan Discharge Patient Disposition: Home Clinical Impression: Hyperglycemia Condition: Stable Prescriptions: No Action potassium chloride 20 mEq tablet extended release 20 meq PO DAILY@999 RF: 0 metformin 1,000 mg tablet 1,000 mg PO BID@ RF: 0 pregabalin [Lyrica] 50 mg capsule 50 mg PO BID@ RF: 0 omeprazole 20 mg tablet,delayed release (DR/EC) 20 mg PO BID@ RF: 0 Folbic 2.5-25-2 mg tablet 1 tab PO DAILY@999 RF: 0 propranolol 80 mg capsule,extended release 24 hr 80 mg PO BID@ RF: 0 duloxetine 60 mg capsule,delayed release(DR/EC) 120 mg PO DAILY@999 RF: 0 lamotrigine 200 mg tablet 200 mg PO BID@ RF: 0 aspirin [Adult Low Dose Aspirin] 81 mg tablet,delayed release (DR/EC) 81 mg PO DAILY@2099 RF: 0 quetiapine 100 mg tablet 100 - 300 mg PO DAILY@2099 RF: 0 diazepam 10 mg tablet 20 mg PO DAILY PRN (Reason: Anxiety) RF: 0 Lantus U-100 Insulin 100 unit/mL solution 40 unit SUBCUT DAILY RF: 0 (DME) crutches Qty: 1 RF: 0 (DME) Crutches Qty: 1 RF: 0 (DME) ORTHO WEDGE Qty: 1 RF: 0 (DME) Ortho Wedge Shoe Qty: 1 RF: 0 glimepiride 4 mg tablet 4 mg PO BID@1000,2100 RF: 0 One A Day Vitamin Tablet 1 tab PO DAILY@1000 RF: 0 cyclobenzaprine 10 mg tablet 10 mg PO TID PRN (Reason: MUSCLE SPASMS) RF: 0 atorvastatin 20 mg tablet 20 mg PO DAILY@1000 RF: 0 hydrocodone-acetaminophen 10-325 mg tablet 1 tab PO Q8H PRN (Reason: Pain) RF: 0 levothyroxine 200 mcg tablet 200 mcg PO DAILY@1000 RF: 0 topiramate 100 mg tablet 100 mg PO DAILY@1000 RF: 0 Hair, Skin, Nails with Biotin 7.5-7.5-1,250 mg-unit-mcg Tablet,Chewable 1 tab PO DAILY@1000 RF: 0 Vitamin B-12 1 tab PO DAILY@1000 RF: 0 Vitamin D3 1 tab PO DAILY@1000 RF: 0 Discharge Orders: Discharge ED (Routine); Ordered 11/12/20 Ordered By: Melvin Cabrera Referrals: Carter Yusuf MD [Primary Care Provider] - Discharge Diet: Usual diet Discharge Activity: Resume usual activity Patient Instructions: Opioid Safety Activity Restrictions/Additional Instructions: Monitor blood sugars closely at home follow-up with a blood sugar log with your primary care doctor next week. Coding Level of Care Code ED Ornamental Ironworker for Jaret Fwd Exam Comprehensive
[2020-11-12 15:14] LABS: Alanine Aminotransferase 28 U/L (0-33); Albumin Level 4.6 g/dL (3.5-5.2); Alkaline Phosphatase 117 IU/L (35-105); Anion Gap 14.4 (5-19); Aspartate Amino Transferase 15 U/L (0-32); Blood Urea Nitrogen 19 mg/dL (8-23); Carbon Dioxide 29 mmol/L (22-29); Chloride 95 mmol/L (98-107); Creatine Phosphokinase 33 U/L (26-192); Creatinine Clr Calc Pharmacy 79.5405; Globulin 3.4 g/dL (1.3-4.6); Glucose 199 mg/dL (65-115); Osmolality Calculated 286 mOsm/kg (285-295); Potassium 4.4 mmol/L (3.5-5.1); Sodium 134 mmol/L (136-145); Total Bilirubin 0.2 mg/dL (0.15-1.2)
[2020-11-12 15:43] LABS: Add Urine Microscopic? NO; Charge for UA Resulting for Rev
[2020-11-12 15:49] LABS: Bilirubin Urine Neg (Negative); Blood Urine Neg (Negative); Glucose Urine UA 2+ (Normal); Ketones Urine Negative (Negative); Leukocyte Esterase Urine Negative (Negative); Nitrate Urine Negative (Negative); Protein Urine Neg (Negative); Specific Gravity, Urine 1.005 (1.005-1.030); Urine Appearance Clear (CLEAR); Urine Color Straw (Yellow); Urobilinogen Urine Norm (Negative); pH Urine 8 (5-7)
[2020-11-13 07:14] LABS: Glucose Point of Care 311 mg/dL (70-110)
== END 2020-11-12 16:22 | disposition home or self-care (01) ==
PROVIDERS: Emergency Provider Family Medicine; PCP Family Medicine
DX: E11.65 Type 2 diabetes mellitus with hyperglycemia (principal); Z79.82 Long term (current) use of aspirin; Z79.4 Long term (current) use of insulin; Z86.73 Personal history of transient ischemic attack (TIA), and cerebral infarction without residual deficits; I10 Essential (primary) hypertension
CPT/HCPCS: 36415; 36416; 71045; 80053; 81003; 82009; 82550; 82962; 85025; 87040; 96360; 99283; J7030

== ENCOUNTER → 2021-01-04 13:30 | Outpatient (BNVA) | payer MEDICARE, OTHER, SELFPAY | PROVIDERS: PCP Family Medicine; Visit Provider Orthopaedic Surgery | DX: S42.144D Nondisplaced fracture of glenoid cavity of scapula, right shoulder, subsequent encounter for fracture with routine healing (principal); X58.XXXD Exposure to other specified factors, subsequent encounter | CPT/HCPCS: 73030 ==

== ENCOUNTER 2021-01-17 12:59 | Outpatient (CLI) | payer MEDICARE, OTHER, SELFPAY ==
--- NOTE | 2021-01-17 13:00 | MR_ITS ---
WS: [id number] Kaylee Ch 5 21 55 MRI RIGHT SHOULDER NONCONTRAST TECHNIQUE: Sagittal T2, coronal T1, T2 and proton density imaging. Axial gradient PDE imaging. CLINICAL INFORMATION: S42.144D - Nondisplaced fracture of glenoid cavity of sca... COMPARISON: CT April 20, 2020 FINDINGS: Prior healing/healed fractures of the glenoid extending to the glenoid neck and lateral border of the scapula. This was previously described on the prior CT April 20, 2020. Diffuse edema involving the humeral head, scapula, and glenoid likely posttraumatic and reactive. Stable avulsed displaced fragm ents along the anterior glenoid inferior to the coracoid. Advanced degenerative narrowing at the glenohumeral joint. Hypertrophic spurring along the glenoid an d humeral neck. Moderate degenerative changes at the AC joint with mild downsloping of the acromion. Subacromial spurring. Mild edema at the AC joint. Small amount of subacromial/subdeltoid fluid. Heter ogeneous edema within the humeral head with serpiginous decreased signal in the anterolateral humeral head at the greater tuberosity consistent with avascular necrosis. Diffuse chronic thinning of the rotator cuff. Chronic thinning of the distal supraspinatus with tendi nopathy. Tendinopathy in the distal infraspinatus. Chronic atrophy with edema involving the teres minor. Thinning of the distal subscapularis which appe ars intact. Biceps tendon is intact within the bicipital groove with mild medial subluxation proximally. Advanced degenerative fraying and posttraumatic changes involving the glenoid labrum. Small joint effusion. T endinopathy involving the intra-articular biceps tendon. MR/MR shoulder RT wo con* [id number] IMPRESSION: 1. Prior comminuted fractures of the glenoid extending to the glenoid neck and lateral border of the scapula. This was previously described on the prior CT O ct2019. 2. 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 3. Diffuse edema in the humeral head and neck likely posttraumatic and reactiv e. 4. Stable avulsed displaced fragments along the anterior glenoid inferior to t he coracoid. 5. Small joint effusion. 6. Chronic thinning of the rotator cuff described above.
== END 2021-01-17 13:00 | disposition home or self-care (01) ==
LOC: RADSHAW 13:04
PROVIDERS: PCP Family Medicine; Visit Provider Orthopaedic Surgery
DX: S42.144D Nondisplaced fracture of glenoid cavity of scapula, right shoulder, subsequent encounter for fracture with routine healing (principal); X58.XXXD Exposure to other specified factors, subsequent encounter; M25.411 Effusion, right shoulder; R60.0 Localized edema
CPT/HCPCS: 73221

== ENCOUNTER 2021-02-16 07:31 | Outpatient (CLI) | payer MEDICARE, OTHER, SELFPAY ==
--- NOTE | 2021-02-16 07:30 | CT_ITS ---
WS: [id number] NONCONTRAST CT RIGHT SHOULDER. TECHNIQUE: Noncontrast CT right shoulder. with coronal and sagittal reformatted images. 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 FINDINGS: Advanced degenerative arthritis glenohumeral joint with joint space narrowing. Hypertrophic spurring along the inferior glenohumeral joint. Moderate degenerative arthritis AC joint with downsloping of t he acromion. Subacromial spurring. In the area of suspected avascular necrosis, there is a small amou nt of bony sclerosis with no significant bony fragmentation or subchondral collapse. No bony destruct ion. Small joint effusion. Subchondral cystic change involving the glenohumeral articulation of the h umeral head and bony glenoid. Prior healed comminuted fracture of the glenoid involving the glenoid neck lateral border of the scap homa. This was previously described on the CT April 20, 2020. Stable avulsed displaced fragment olive g the anterior glenoid inferior to the coracoid unchanged. Partially visualized postoperative changes involving the lower cervical spine. CT/CT shoulder RT wo con* [id number] IMPRESSION: 1. In the area of suspected avascular necrosis on the prior MRI, there is a sm all amount of sclerosis seen in the anterior lateral humeral head on today's CT . No significant fragmentation or subchondral collapse. Findings may be due to early changes of AVN. Some of the previously described diffuse edema may be due to degenerative arthritis or reactive edema from prior trauma. 2. Advanced degenerative arthritis at the glenohumeral articulation with joint space narrowing and nxwu-cy-winf articulation. Associated subchondral sclerosi s with cystic change. 3. Hypertrophic spurring along the humeral head and glenoid. 4. Moderate degenerative arthritis AC joint with mild downsloping of the acrom ion. 5. Small joint effusion. 6. Prior healed comminuted fracture of the glenoid involving the glenoid neck and lateral border of the scapula. This was previously described on the CT Apro 2019. 7. Stable avulsed displaced fragment along the anterior glenoid inferior to th e coracoid unchanged.
== END 2021-02-16 07:32 | disposition home or self-care (01) ==
LOC: RAD 07:35
PROVIDERS: PCP Family Medicine; Visit Provider Orthopaedic Surgery
DX: M87.029 Idiopathic aseptic necrosis of unspecified humerus (principal); M25.411 Effusion, right shoulder; M19.011 Primary osteoarthritis, right shoulder
CPT/HCPCS: 73200

== ENCOUNTER 2021-03-02 13:41 | Outpatient (CLI) | payer MEDICARE, OTHER, SELFPAY ==
--- NOTE | 2021-03-02 13:48 | CT_ITS ---
WS: [id number] CT RIGHT SHOULDER NONCONTRAST. 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 DLP: 1475.03 mGy.cm COMPARISON: 02/16/2021. Advanced degenerative changes at the glenohumeral joint. Severe joint space narrowing with subchondra l cysts and sclerosis and osteophytic ridging. Osteophytic ridging involving the humeral head and the glenoid. There are multiple small subchondral cysts and a few small fragments. There are small fragm ents embedded within the subscapularis muscle. These may be dystrophic calcifications are displaced b one fragments. Additional mild AC joint arthritis. Patient has a prior history of glenoid fracture. H umeral head is high riding encroaching upon the supraspinatus tendon over the humeral head. Mild atrophy of the supraspinatus muscle. Marked thickening of the glenohumeral joint capsule consist ent with synovitis. Subchondral cystic changes along the posterior lateral humeral head. No definite evidence or progress ion of avascular necrosis. CT/CT shoulder RT wo con* [id number] IMPRESSION: 1. Advanced degenerative glenohumeral joint osteoarthritis. No progressive los s of bone or evidence for advancing avascular necrosis. 2. Glenohumeral joint capsule thickening from synovitis. 3. Remote healed glenoid fracture. 4. Mild atrophy supraspinatus muscle. 5. Small osseous or calcific fragments embedded within the subscapularis muscl e are unchanged.
== END 2021-03-02 13:42 | disposition home or self-care (01) ==
PROVIDERS: PCP Family Medicine; Visit Provider Orthopaedic Surgery
DX: M87.029 Idiopathic aseptic necrosis of unspecified humerus (principal); M62.511 Muscle wasting and atrophy, not elsewhere classified, right shoulder; Z87.81 Personal history of (healed) traumatic fracture; M19.011 Primary osteoarthritis, right shoulder
CPT/HCPCS: 73200

== ENCOUNTER → 2021-04-01 15:23 | Outpatient (BNVA) | payer MEDICARE, OTHER, SELFPAY | PROVIDERS: PCP Family Medicine; Visit Provider Orthopaedic Surgery | DX: Z01.812 Encounter for preprocedural laboratory examination (principal); Z20.822 Contact with and (suspected) exposure to COVID-19 | CPT/HCPCS: 87635 ==

== ENCOUNTER 2021-04-07 12:39 | Observation (INO) | payer MEDICARE, OTHER, SELFPAY ==
[2021-03-10 10:25] VITALS: BMI 32.3
--- NOTE | 2021-03-10 10:53 | ANES.PREANE2 ---
Pre-Anesthetic Assessment Pre-Anesthetic Assessment: Height/Weight: Height 1.68 m Weight 90.718 kg Preop Diagnosis: Fracture left fifth metatarsal Proposed Procedure: Operation Date: 03/17/21 07:00 Proposed Procedures p Total Shoulder Arthroplasty 30393 M19.011 M87.02(Right) - Lakhwinder Kendrick MD Familial anesthetic complications: PONV Social: Social History: No alcohol and No tobacco Exam: Pre-Anes Outpt Exam: alert, oriented x 3, clear to auscultation bilaterally and regular rate & rhythm Airway: MP: 1 Dentition: Other (missing) CV/HEM: CV/HEM: HTN GI: GI: GERD Metabolic: Metabolic: DM and Morbid obesity Musc/skel: Comments: spinal rods (in lower back) can't tell me where Anesthetic Plan: ASA status: 3 Anesthesia: General Other: patient has had surgery ( I have a cage ) over lower back and declines spinal Risk of > 500 ml blood loss (7ml/kg in children): No PFSH Anesthesia PFSH: Medical History Chronic diarrhea CVA (cerebral vascular accident) History of anemia History of anxiety History of aphasia History of bipolar disorder History of depression History of GI bleed History of hypothyroidism History of posttraumatic stress disorder (PTSD) Hx of kidney disease Hx of primary hypertension Hx of type 2 diabetes mellitus Hypothyroidism Tension headache, chronic TIA (transient ischemic attack) Surgical History History of back surgery Hx of appendectomy Hx of cholecystectomy Hx of hysterectomy Hx of neck surgery Social History Alcohol intake: current Alcohol intake frequency: holidays/special occasions only Data Anesthesia Cardiac Studies: No Data to Display
[2021-03-10 11:17] LABS: Basophils # 0.1 10^3/uL (0.0-0.1); Basophils % 0.4 %; Eosinophils # 0.5 10^3/uL (0.0-0.8); Eosinophils % 4.1 %; Hematocrit 46.1 % (37.0-47.0); Hemoglobin 14.4 g/dL (11.5-15.3); Lymphocytes % 25.6 %; Mean Corpuscular HGB Conc 31.2 g/dL (30.0-36.0); Mean Corpuscular Hemoglobin 29.8 pg (28.0-34.0); Mean Corpuscular Volume 95.2 fl (81-99); Mean Platelet Volume 9.9 fL (7.4-10.4); Monocytes # 0.9 10^3/uL (0.2-0.9); Monocytes % 7.9 %; Neutrophils % 61.5 %; Nucleated Red Blood Cells % 0 %; Platelet Count 311 10^3/cmm (130-400); Red Blood Count 4.84 10^6/uL (4.1-5.3); Red Cell Distribution Width 13.3 % (12.1-15.1); White Blood Count 11.6 10^3/uL (4.0-10.0)
[2021-03-10 11:36] LABS: Anion Gap 18.5 (5-19); Blood Urea Nitrogen 13 mg/dL (8-23); Calcium 10.8 mg/dL (8.5-10.5); Carbon Dioxide 29 mmol/L (22-29); Chloride 92 mmol/L (98-107); Glomerular Filtration Rate 71.8 mL/min (90-130); Glucose 208 mg/dL (65-115); Osmolality Calculated 286 mOsm/kg (285-295); Potassium 4.5 mmol/L (3.5-5.1); Sodium 135 mmol/L (136-145)
[2021-04-07] VITALS (21 sets, daily range): BP systolic 87–152; BP diastolic 57–93; PULSE 68–99; RESP 9–20; TEMP 36.5–37; O2SAT 92–98
[2021-04-07] MEDS: CELEcoxib 100 mg Capsule 400 MG PO (07:43)
[2021-04-07] MEDS: oxyCODONE 20 mg ER (12 HR) Tablet PO (07:44)
[2021-04-07] MEDS: gabapentin 300 mg Capsule PO (07:45)
[2021-04-07] MEDS: acetaminophen 500 mg Tablet 1000 MG PO ×3 (07:46→22:36)
[2021-04-07 08:19] LABS: Glucose Point of Care 84 mg/dL (70-110)
[2021-04-07] MEDS: sodium chloride 0.9% 1,000 ML 30 ML IV (08:21)
[2021-04-07] MEDS: midazolam 1 mg/mL INJ 2 mL 2 MG IVP (09:08)
--- NOTE | 2021-04-07 09:13 | P.ANESUD_ITS ---
Pre-Anesthetic Update Pre-Anesthetic Assessment: Date of Surgery/Procedure: 04/07/21 Preop Nell gnosis: Osteoarthritis Right shoulder Proposed Procedure: Operation Date: 04/07/21 09:20 Proposed Procedures p Total Shoulder Arthroplasty 22378 M19.011 M87.02(Right) - Lakhwinder Kendrick MD Any changes to Pre-Anesthetic Assessment?: No Last Intake: Intake Last Liquid Date 04/06/21 Last Liquid Time 22:30 Last Solid Date 04/06/21 Last Solid Time 16:30 Labs Last 48hrs: Laboratory Results - last 48 hr 04/07/21 08:12 POC Glucose 84 Vitals: Temperature 98.3 F 04/07/21 08:22 Temperature Source Temporal Artery S can 04/07/21 08:22 Pulse Rate 68 04/07/21 09:00 Pulse Rhythm 04/07/21 07:57 Pulse Strength 3+ Normal 04/07/21 07:57 Respiratory Rate 16 04/07/21 09:00 Respiratory Effort 04/07/21 07:44 Respiratory Depth Normal 04/07/21 07:44 Respiratory Patter n 04/07/21 07:44 Blood Pressure 117/93 04/07/21 09:00 Blood Pressure Agatha n 101 04/07/21 09:00 Pulse Oximetry 98 04/07/21 09:00 Oxygen Delivery Me thod 04/07/21 09:00 Oxygen Flow Rate 2 04/07/21 09:00 Exam: Pre-Anes Outpt Exam: alert, oriented x 3, clear to auscultation bilaterally and regular rate & rhythm Cardiac Studies: No Data to Display
[2021-04-07] MEDS: scopolamine 1.5 Patch 1 PATCH TRANSDERMA (09:14)
--- NOTE | 2021-04-07 09:14 | ANES.PROC ---
Anesthesia Procedures Procedure/Date: 04/07/21 Nerve Block ^: Nerve Block 1: Main Anesthesia: general anesthesia Time Out Performed: Yes Consent: requested by attending/covering physician, from patient and patient agrees to proceed Nerve block location: interscalene (R) Intraoral Nerve Block: supraperiosteal Anesthesia monitors applied: pulse oximetry, EKG, BP cuff and oxygen Nerve block position: supine Anesthetic Used: ropivicaine 0.5% and with decadron (4 mg) Amount of anesthesia used (mL): 30 Ultrasound used to: visualize and ID brachial plexus Nerve Stimulator Used?: No Interscalene/Femoral BLK: 2 stimuplex 22 g needle used for position and inplane approach, visualize local anesthetic spread and no vascular puncture identified Injection: neg aspiration of heme and paresthesia +/- Patient Tolerated Procedure: well and no complications Complications: none
--- NOTE | 2021-04-07 09:20 | W.PM.OPSUD ---
Surgery/Procedure H&P Update DATE OF PROCEDURE: April 07, 2021 DATE H&P PERFORMED: 02/22/21 PREOP DIAGNOSIS: Osteoarthritis Right shoulder PLANNED PROCEDURE: Operation Date: 04/07/21 09:20 Proposed Procedures p Total Shoulder Arthroplasty 96252 M19.011 M87.02(Right) - Lakhwinder Kendrick MD
[2021-04-07] MEDS: EPINEPHrine 1 mg/mL INJ XX (10:17)
--- NOTE | 2021-04-07 12:54 | P.OP_ITS ---
Operative Report Date of procedure: April 07, 2021 Pre-op Diagnosis: Osteoarthritis Right shoulder Post-op diagnosis: same Procedure Done: Right total shoulder arthroplasty Implants: Tornier 2B stem, [id number] high humeral head, [id number] Pathology: none sent Surgeon: Lakhwinder Kendrick Anesthesia: General and Nerve Block (Interscalene block) Estimated blood loss (mL): 250 Complications: None Findings: The patient had exposed subchondral bone and peripheral osteophytes about the humeral head. She had degenerative changes of her glenoid. Increased posterior bone loss and retroversion was noted on the preoperative CT and confirmed at surgery. Her rotator cuff appeared intact. Condition: stable Disposition: PACU Procedure: An intrascalene blocks provided the holding area. The patient was taken to the operating room and given a general anesthesia. They were given 2 g of Ancef. Positioned in beachchair position with the arm in arm spencer. A timeout was performed. A 8 cm long incision was made over the deltopectoral groove and dissection carried out with a scalpel blade to the deltopectoral interval. The cephalic vein was identified and retracted laterally. Digital dissection was accomplished to free lesions beneath the deltoid and beneath the coracobrachialis musculature. A small/medium José Miguel sleeve was placed beneath the deltoid and pectoralis major tendon. The biceps tendon was identified and dissection traced proximally to the bicipital groove. Utilizing cautery the subscapularis and anterior capsule was released anteriorly in full-thickness and freed distally at the level of the anterior humeral circumflex vessels. The glenohumeral joint include was externally rotated and dislocated. In accordance with our preoperative plan a neck cut was made in the angle of approximately 132.5 degrees in 30 degrees of retroversion. Capsule was released from the inferior and posterior glenoid. A canal finder was used to find the canal and sequential broaching was accomplished until rotational stability was encountered with a stem of size to be, a calcar protector plate was applied. The humeral head was then retracted posteriorly and inferiorly. Utilizing electrocautery labral and biceps remnants were excised circumferentially. The centering guide was used to place the central guidepin and the glenoid ream down to sclerotic bone anteriorly and sequential posterior reaming accomplished to accommodate the 25degree him I wedge glenoid. The 40 mm glenoid provided satisfactory coverage. the baseplate was prepared with the central and 3 peripheral holes. The drill holes were soaked in epinephrine solution. Peripheral peg holes were filled with cement and the final 40 mm 25 mmCortiloc glenoid glenoid component was placed. A trial reduction was performed with the 48x20 high femoral head and the final components were press-fit into place. The shoulder was reduced and found to be stable. The subscap was secured with a 2 locking Ultratape sutures exiting in the dorsal aspect of the tendon. The lesser tuberosity was debrided down to trabecular bone. The shoulder was irrigated with saline and gentamicin solution. 3 drill holes were made in the bicipital tuberosityfrom proximal to distal. The most superior suture was passed through the top hole, middle sutures through the second hole, and the inferior suture through the inferior hole. The sutures were then passed through a small 4-hole Alton plate and secured with the elbow in 30 degrees of external rotation, rowing the rotator cuff over the lesser tuberosity. The lateral rotator interval was closed with ultra tape suture. The deltopectoral interval was closed with 0 Vicryl. The subcutaneous tissues were closed with 2- 0 Vicryl. The skin was closed with skin ela. Sterile dressings were applied. The patient was placed in a sling extubated and taken to recovery room in stable condition. Tornier Cortiloc glenoid size [], nucleus size [], Simplicity head []x[]
--- NOTE | 2021-04-07 13:14 | XR_ITS ---
WS: [id number] Exam: XR shoulder RT min 2V* [id number] Date/Time of Exam: 04/07/2021 1:18 PM Reason For Exam: Right total shoulder arthroplasty A humeral head prosthesis is noted in satisfactory position. Postoperative changes in the soft tissue s. Several old right rib fractures are noted. Hardware in the lower cervical spine. XR/XR shoulder RT min 2V* [id number] IMPRESSION: 1. Humeral head prosthesis in place appearing to be in satisfactory position.
[2021-04-07] MEDS: sodium chloride 0.9% 1,000 ML 80 ML IV (15:13)
[2021-04-07] MEDS: oxyCODONE 5 mg IR Tab/Cap PO ×2 (15:21→21:28)
[2021-04-07 15:50] LABS: Glucose Point of Care 200 mg/dL (70-110)
[2021-04-07] MEDS: ceFAZolin 1,000 MG in sodium chloride 0.9% (plus) 50 ML 100 MG IV (17:30)
[2021-04-07] MEDS: HYDROcodone-acetaminophen 10-325 mg Tablet 1 TAB PO (17:30)
[2021-04-07 17:37] LABS: Glucose Point of Care 201 mg/dL (70-110)
[2021-04-07] MEDS: morphine 4 mg/mL SDV 1 mL 2 MG IVP (19:46)
[2021-04-07 20:56] LABS: Glucose Point of Care 221 mg/dL (70-110)
[2021-04-07] MEDS: CELEcoxib 200 mg Capsule PO (21:23)
[2021-04-07] MEDS: pantoprazole DR 40 mg Tablet PO (21:23)
[2021-04-07] MEDS: aspirin 81 mg EC Tablet PO (21:23)
[2021-04-07] MEDS: quetiapine 300 mg Tablet PO (21:23)
[2021-04-07] MEDS: insulin glargine 100 units/1 mL 40 UNIT SUBCUT (21:23)
[2021-04-07] MEDS: pregabalin 50 mg Capsule PO (21:23)
[2021-04-07] MEDS: lamoTRIgine 100 mg Tablet 200 MG PO (21:23)
[2021-04-07] MEDS: propranolol 40 mg Tablet 80 MG PO (21:28)
[2021-04-08] MEDS: HYDROcodone-acetaminophen 10-325 mg Tablet 1 TAB PO ×2 (00:37→10:52)
[2021-04-08] MEDS: ceFAZolin 1,000 MG in sodium chloride 0.9% (plus) 50 ML 100 MG IV ×2 (00:37→09:05)
[2021-04-08 03:55] VITALS: BP 121/75; PULSE 79; RESP 16; TEMP 36.6; O2SAT 95
[2021-04-08 06:35] LABS: Glucose Point of Care 104 mg/dL (70-110)
--- NOTE | 2021-04-08 07:34 | PM.DCS ---
Discharge Providers Date of Admission: 04/07/21 12:39 Date of Discharge: April 08, 2021 Attending Provider at Admission: Lakhwinder Kendrick MD Attending Provider at Discharge: Lakhwinder Kendrick MD Primary Care Provider: Carter Yusuf MD Diagnoses at Discharge Discharge Diagnosis (1) Status post replacement of right shoulder joint: Status: Acute (2) Osteoarthritis of right shoulder: Status: Resolved Reason for Visit Reason for Visit: shoulder arthroplasty Hospital Course Hospital Course The patient tolerated surgery well. They remained hemodynamically stable. They was begun on aspirin and sequential compression dressings for DVT prophylaxis. The patient was mobilized with therapy beginning the day of surgery and by the first postoperative day complex with a home exercise program.. As the pain was adequately controlled and they were fully mobile they were discharged home. Physical Exam Narrative: EXAM NARRATIVE: On the day of discharge her dressing was clean and dry. She can fire her deltoid and her biceps. No distal neurovascular deficits were noted. Discharge Data Data Completed and Pending: Completed Studies During Hospitalization Category Date Time Status XR shoulder RT mi n 2V* [id number] Routin e Exams 04/07/21 13:14 Completed Labs from last 24 hours 04/08/21 04/07/21 04/07/21 06:26 20:40 17:34 POC Glucose 104 221 H 201 H 04/07/21 04/07/21 15:32 08:12 POC Glucose 200 H 84 Vitals: Last Vital Signs Temp 97.8 F 04/08/21 03:55 Pulse 79 04/08/21 03:55 Resp 16 04/08/21 03:55 BP 121/75 04/08/21 03:55 Pulse Ox 95 04/08/21 03:55 Discharge Plan Discharge Patient Disposition: Home Condition: Stable Prescriptions: New oxycodone 5 mg Tablet 5 - 10 mg PO Q4H PRN (Reason: Moderate To Severe Pain) 7 Days Qty: 40 RF: 0 acetaminophen 500 mg Tablet 1,000 mg PO Q8H 14 Days Qty: 84 RF: 0 celecoxib 200 mg Capsule 200 mg PO BID@0900,2100 14 Days RF: 0 Continued potassium chloride 20 mEq tablet extended release 20 meq PO DAILY@1000 RF: 0 metformin 1,000 mg tablet 1,000 mg PO BID@999,2099 RF: 0 pregabalin [Lyrica] 50 mg capsule 50 mg PO BID@999 RF: 0 omeprazole 20 mg tablet,delayed release (DR/EC) 20 mg PO BID@999,2099 RF: 0 Folbic 2.5-25-2 mg tablet 1 tab PO DAILY@999 RF: 0 propranolol 80 mg capsule,extended release 24 hr 80 mg PO BID@999,2099 RF: 0 duloxetine 60 mg capsule,delayed release(DR/EC) 120 mg PO DAILY@999 RF: 0 lamotrigine 200 mg tablet 200 mg PO BID@ RF: 0 aspirin [Adult Low Dose Aspirin] 81 mg tablet,delayed release (DR/EC) 81 mg PO DAILY@2099 RF: 0 quetiapine [Seroquel] 100 mg tablet 100 - 300 mg PO DAILY@2099 RF: 0 diazepam 10 mg tablet 20 mg PO DAILY PRN (Reason: Anxiety) RF: 0 Lantus U-100 Insulin 100 unit/mL solution 40 unit SUBCUT DAILY RF: 0 mupirocin 2 % ointment 1 applic topical BID Qty: 22 RF: 0 (DME) crutches Qty: 1 RF: 0 (DME) Crutches Qty: 1 RF: 0 (DME) ORTHO WEDGE Qty: 1 RF: 0 (DME) Ortho Wedge Shoe Qty: 1 RF: 0 glimepiride 4 mg tablet 4 mg PO BID@999,2099 RF: 0 multivitamin [One A Day Vitamin] Tablet 1 tab PO DAILY@1000 RF: 0 cyclobenzaprine 10 mg tablet 10 mg PO TID PRN (Reason: MUSCLE SPASMS) RF: 0 atorvastatin 20 mg tablet 20 mg PO DAILY@1000 RF: 0 hydrocodone-acetaminophen 10-325 mg tablet 1 tab PO Q8H PRN (Reason: Pain) RF: 0 levothyroxine 200 mcg tablet 200 mcg PO DAILY@1000 RF: 0 topiramate 100 mg tablet 100 mg PO DAILY@1000 RF: 0 Hair, Skin, Nails with Biotin 7.5-7.5-1,250 mg-unit-mcg Tablet,Chewable 1 tab PO DAILY@1000 RF: 0 Vitamin B-12 1 tab PO DAILY@1000 RF: 0 Vitamin D3 1 tab PO DAILY@1000 RF: 0 Discharge Orders: Discharge Order (Routine); Ordered 04/08/21 Ordered By: Lakhwinder Kendrick Referrals: Lakhwinder Kendrick MD [Physician] - Discharge Diet: Advance as tolerated Discharge Activity: Limit activity as instructed Patient Instructions: Opioid Safety Activity Restrictions/Additional Instructions: May remove shoulder dressing in 48 hours and may shower once incisions free of drainage. Leave arm in sling/immobilizer at all times except when showering or performing exercises. Avoiding any active use of the left shoulder. May remove sling for exercises Exercises per occupational therapy. May apply cold compression as necessary for pain and swelling Take Tylenol and Celebrex as prescribed. Use oxycodone for breakthrough pain. Discharge Attestations Time Spent in Discharge Care*: other Quality Metrics Clinical Quality Measures During this hospital stay, did patient experience: None Coding Level of Care Code Acute [facility] note Diagnoses Status post replacement of right shoulder joint Z96.611 Osteoarthritis of right shoulder M19.011
[2021-04-08 08:00] VITALS: BP 137/82; PULSE 81; RESP 18; TEMP 36.9; O2SAT 93
[2021-04-08] MEDS: acetaminophen 500 mg Tablet 1000 MG PO (09:06)
[2021-04-08] MEDS: potassium chloride ER 20 mEq Tablet PO (09:06)
[2021-04-08] MEDS: lamoTRIgine 100 mg Tablet 200 MG PO (09:07)
[2021-04-08] MEDS: cyanocobalamin 1,000 mcg Tablet 1000 MCG PO (09:08)
[2021-04-08] MEDS: CELEcoxib 200 mg Capsule PO (09:08)
[2021-04-08] MEDS: duloxetine 60 mg Capsule 120 MG PO (09:08)
[2021-04-08] MEDS: topiramate 100 mg Tablet PO (09:08)
[2021-04-08] MEDS: atorvastatin 40 mg Tablet 20 MG PO (09:09)
[2021-04-08 10:49] LABS: Glucose Point of Care 249 mg/dL (70-110)
[2021-04-08] MEDS: pregabalin 50 mg Capsule PO (10:52)
[2021-04-08] MEDS: cholecalciferol (vitamin D3) 1,000 unit Tablet 1000 UNIT DOBHOFF (10:52)
[2021-04-08] MEDS: levothyroxine 200 mcg Tablet PO (10:52)
[2021-04-08] MEDS: pantoprazole DR 40 mg Tablet PO (10:52)
[2021-04-08] MEDS: propranolol 40 mg Tablet 80 MG PO (10:52)
[2021-04-08 11:26] VITALS: BP 155/88; PULSE 94; RESP 16; TEMP 37.3; O2SAT 95
[2021-04-08 12:16] VITALS: BP 155/88; PULSE 94; RESP 16; TEMP 37.3; O2SAT 95
--- NOTE | 2021-04-11 16:29 | P.HP_ITS ---
Providers/Chief Complaint Admitting Physician: Lakhwinder Kendrick MD Primary Care Provider: Carter Yusuf MD Chief Complaint: shoulder arthroplasty History of Present Illness Kaylee Ch is a 65 year old female with avascular necrosis and osteoarthritis of her right shoulder after a right scapular fracture. She has had severe pain and failed to improve with appropriate medications injections and here for elective right total shoulder arthroplasty Medications/Allergies Home Medications Medication Instructions Recorded Confirmed Last Taken Type aspirin 81 mg tablet,delayed 81 mg PO DAILY@209908/28/19 04/07/21 04/06/21 19:00 History release diazepam 10 mg tablet 20 mg PO DAILY PRN tab 08/28/19 04/07/21 04/06/21 19:00 History duloxetine 60 mg capsule,delayed 120 mg PO DAILY@1000 cap 08/28/19 04/07/21 04/06/21 19:00 History release folic acid-vit B6-vit B12 2.5 1 tab PO DAILY@1000 08/28/19 04/07/21 04/06/21 08:00 History mg-25 mg-2 mg tablet insulin glargine 100 unit/mL 40 unit SUBCUT DAILY ml 08/28/19 04/07/21 04/06/21 19:00 History subcutaneous solution lamotrigine 200 mg tablet 200 mg PO BID@1000,209908/28/19 04/07/21 04/06/21 19:00 History metformin 1,000 mg tablet 1,000 mg PO BID@1000,209908/28/19 04/07/21 04/06/21 07:00 History omeprazole 20 mg tablet,delayed 20 mg PO BID@1000,209908/28/19 04/07/21 04/06/21 19:00 History release potassium chloride 20 mEq 20 meq PO DAILY@1000 08/28/19 04/07/21 04/06/21 07:00 History tablet,extended release pregabalin 50 mg capsule 50 mg PO BID@1000,209908/28/19 04/07/21 04/06/21 19:00 History propranolol 80 mg capsule,24 80 mg PO BID@1000,2100 cap 08/28/19 04/07/21 04/07/21 06:00 History hr,extended release quetiapine 100 mg tablet 100 - 300 mg PO DAILY@209908/28/19 04/07/21 04/06/21 19:00 History glimepiride 4 mg PO BID@1000,2100 08/29/19 04/07/21 04/06/21 19:00 History Crutches #1 ea 09/16/19 02/22/21 Unknown Rx crutches #1 ea 09/16/19 02/22/21 Unknown Rx ORTHO WEDGE #1 ea NS 09/30/19 02/22/21 Unknown Rx Ortho Wedge Shoe #1 ea 10/01/19 02/22/21 Unknown Rx Hair, Skin, Nails with Biotin 1 tab PO DAILY@1000 11/12/20 04/07/21 04/06/21 19:00 History Vitamin B-12 1 tab PO DAILY@1000 11/12/20 04/07/21 04/06/21 19:00 History Vitamin D3 1 tab PO DAILY@1000 11/12/20 04/07/21 04/06/21 19:00 History atorvastatin 20 mg PO DAILY@1000 11/12/20 04/07/21 04/06/21 08:00 History cyclobenzaprine 10 mg PO TID PRN 11/12/20 04/07/21 04/06/21 19:00 History hydrocodone-acetaminophen 1 tab PO Q8H PRN 11/12/20 04/07/21 04/07/21 07:00 History levothyroxine 200 mcg PO DAILY@1000 11/12/20 04/07/21 04/06/21 07:00 History multivitamin 1 tab PO DAILY@1000 11/12/20 04/07/21 04/06/21 19:00 History topiramate 100 mg PO DAILY@1000 11/12/20 04/07/21 04/06/21 19:00 History mupirocin 2 % topical ointment 1 applic TOPICAL BID #22 g 02/22/21 04/07/21 04/06/21 19:00 Rx acetaminophen 1,000 mg PO Q8H 14 Days #84 tab 04/07/21 Unknown Rx celecoxib 200 mg PO BID@0900,2100 14 Days 04/07/21 Unknown Rx cap oxycodone 5 - 10 mg PO Q4H PRN 7 Days #40 tab 04/07/21 Unknown Rx Allergies Allergy/AdvReac Type Severity Reaction Status Date / Time azithromycin [From Zithromax] Allergy rash Verified 02/22/21 13:32 lisinopril [From Zestril] Allergy ALGY-Swell Verified 02/22/21 13:32 Lip/Tongue/Throat PFSH Acute PFSH: Medical History (Updated 04/11/21 @ 16:27 by Lakhwinder Kendrick MD) Chronic diarrhea CVA (cerebral vascular accident) History of anemia History of anxiety History of aphasia History of bipolar disorder History of depression History of GI bleed History of hypothyroidism History of posttraumatic stress disorder (PTSD) Hx of kidney disease Hx of primary hypertension Hx of type 2 diabetes mellitus Hypothyroidism Suspected COVID-19 virus infection Tension headache, chronic TIA (transient ischemic attack) Surgical History (Updated 04/07/21 @ 18:06 by Lakhwinder Kendrick MD) History of back surgery Hx of appendectomy Hx of cholecystectomy Hx of hysterectomy Hx of neck surgery Social History Alcohol intake: current Alcohol intake frequency: holidays/special occasions only Vitals/I&O/Wt Last Vital Signs Temp 99.2 F 04/08/21 12:16 Pulse 94 04/08/21 12:16 Resp 16 04/08/21 12:16 BP 155/88 04/08/21 12:16 Pulse Ox 95 04/08/21 12:16 Physical Exam Narrative: EXAM NARRATIVE: HEAD: Normocephalic/atraumatic. NECK: Soft supple nontender. HEART: Normal heart sounds, regular rhythm. CHEST: Clear to auscultation. ABDOMEN: Soft nontender nondistended. Patient has severe pain with any motion of her shoulder. She can be flexed to 90 degrees and axial rotated 20 degrees Data : 03/10/21 10:46 03/10/21 10:46 A&P Assessment and plan (1) Osteoarthritis of right shoulder: Status: Acute (2) Avascular necrosis of right humeral head: The patient has severe pain in the right shoulder and is failed conservative measures. She is admitted for elective right total shoulder arthroplasty. The operative CT scan scanning has been obtained. We will proceed with a posteriorly augmented glenoid and humeral head short stem replacement Status: Acute Attestations Medical Necessity Statement*: Patient require 1 night hospitalization for pain control Coding Level of Care Code Acute [facility] Diagnoses Osteoarthritis of right shoulder M19.011 Avascular necrosis of right humeral head M87.021
--- NOTE | 2021-04-12 10:17 | PC.SOCIAL ---
discharge follow up call, called patient yesterday and today. no answer, unable to leave a message.
--- NOTE | 2021-04-12 11:03 | PC.SOCIAL ---
discharge follow up call made, spoke with patient. patient reports she is having some pain, patient didn't take printed celebrex prescription to the pharmacy. she wasn't aware she had a prescription. she will take prescription tomorrow. discussed the importance of taking the tylenol and celebrex for pain and using oxycodone for break through pain. discussed wound care, that patient may remove dressing and shower, but instructed to leave arm sling in place unless she is showering or doing exercises. patient verbalizes understanding. pt has follow up appointment with dr. melendez 04-13 and she has transportation to appointment.
== END 2021-04-08 12:05 | disposition home or self-care (01) ==
LOC: MEDSURG 12:40
PROVIDERS: Anesthesiology; Admitting Provider Orthopaedic Surgery; PCP Family Medicine; Visit Provider Orthopaedic Surgery
PROC: (CPT 23472; principal; 2021-04-07 09:20)
DX: M19.011 Primary osteoarthritis, right shoulder (principal); I10 Essential (primary) hypertension; K21.9 Gastro-esophageal reflux disease without esophagitis; E11.9 Type 2 diabetes mellitus without complications; E66.01 Morbid (severe) obesity due to excess calories; Z68.32 Body mass index [BMI] 32.0-32.9, adult; Z86.73 Personal history of transient ischemic attack (TIA), and cerebral infarction without residual deficits
CPT/HCPCS: 23472; 36416; 64415; 73030; 76942; 80048; 82962; 85025; 96372; 96374; 97161; 97165; C1713; C1776; G0378; J0171; J0690; J1100; J1580; J1815 ×2; J2250; J2270; J2370; J2405; J2704; J2710; J2795; J3010; J3490; J7030

== ENCOUNTER → 2021-05-25 15:19 | Outpatient (BNVA) | payer MEDICARE, OTHER, SELFPAY | PROVIDERS: PCP Family Medicine; Visit Provider Orthopaedic Surgery | DX: Z96.611 Presence of right artificial shoulder joint (principal) | CPT/HCPCS: 73030 ==

== ENCOUNTER 2021-07-08 17:48 | Emergency (ER) | payer MEDICARE, OTHER, SELFPAY ==
[2021-07-08 18:17] VITALS: BP 154/85; PULSE 86; RESP 16; TEMP 37.2; O2SAT 98; BMI 31.4
--- NOTE | 2021-07-08 18:26 | XRR_ITS ---
PROCEDURE INFORMATION: Exam: XR Right Knee Exam date and time: 07/08/2021 6:26 PM Age: 65 years old Clinical indication: Injury or trauma; Fall; Blunt trauma and swelling (edema); Right; Patient HX: PT fell today; C/O pain and swelling knee; Additional info: Fell on knee TECHNIQUE: Imaging protocol: XR Right knee. Views: 1 or 2 views. COMPARISON: No relevant prior studies available. FINDINGS: Bones/joints: There are small smooth round to oval osseous bodies projecting over the medial and lateral compartment of the joint on the frontal view measuring up to 6 mm diameter in the lateral compartment, suggesting intra-articular loose bodies. No acute fracture. There is a large joint effusion. Soft tissues: Normal. XR/XR knee RT 1-2V 66217 IMPRESSION: 1. No visible fracture. 2. Knee effusion. 3. Possible intra-articular loose bodies.
--- NOTE | 2021-07-08 18:37 | XRR_ITS ---
PROCEDURE INFORMATION: Exam: XR Right Tibia and Fibula Exam date and time: 07/08/2021 6:37 PM Age: 65 years old Clinical indication: Injury or trauma; Fall; Blunt trauma and swelling (edema); Right; Patient HX: PT fell today; C/O pain RT knee and swelling. Hurts to put weight on it. TECHNIQUE: Imaging protocol: XR Right tibia and fibula. Views: 2 views. COMPARISON: CR (LOW EXM, ) 07/08/2021 6:31 PM FINDINGS: Bones/joints: A subtle fracture suspected on the ankle radiograph is not visible on this exam. Ankle and knee alignment are normal. No acute fracture is seen. Soft tissues: Visible soft tissues are unremarkable. XR/XR tibia fibula RT 2V 39624 IMPRESSION: No acute findings.
--- NOTE | 2021-07-08 18:37 | XRR_ITS ---
PROCEDURE INFORMATION: Exam: XR Right Ankle Exam date and time: 07/08/2021 6:37 PM Age: 65 years old Clinical indication: Injury or trauma; Blunt trauma and swelling (edema); Right; Patient HX: Fall today; C/O pain RT knee and swelling. Hurts to put weight on TECHNIQUE: Imaging protocol: XR Right ankle. Views: 1 or 2 views. COMPARISON: CR (LOW EXM, ) 07/08/2021 6:31 PM FINDINGS: Bones/joints: Subtle incomplete linear lucency suggesting fracture in the distal fibula above the tibiofibular syndesmosis visible on the frontal view. Tibia is intact. Ankle mortise alignment is normal. The hindfoot is unremarkable. No ankle joint effusion. Soft tissues: Normal. XR/XR ankle RT 2V 12737 IMPRESSION: Suspect nondisplaced distal fibular fracture above the syndesmosis. Findings are very subtle. Correlate with physical exam.
--- NOTE | 2021-07-08 18:54 | W.ED.GENADLT ---
HPI - General Adult General: Chief complaint: Extremity Injury, Lower Stated complaint: KNEE PAIN POST FALL Time Seen by Provider: 07/08/21 18:26 History of Present Illness: HPI narrative: Patient is a 65-year-old female who presents emergency room after twisting her right knee while walking in the utility room. Patient tells me that her knee gave out and hit her right knee on concrete. Since then, patient has noticed swelling in the knee with pain with range of motion. Patient denies any other injuries, or any of chest pain, shortness breath, palpitation prior to the episode of fall. Is not on any anticoagulation. Reports mild right-sided ankle and leg pain. Since the fall, patient has to use walker to be able to ambulate. Onset: 5 hrs ago Duration:5 hrs Location:home Severity:moderate Review of Systems Narrative: Constitutional: No fever, no chills. HEENT: No vision changes CV: No chest pain, no palpitations PULM: no cough, no dyspnea. GI: No abdominal pain, no N/V/D. : No dysuria MSKEL: +R knee pain, +R knee swelling, +R leg/ankle pain SKIN: No new rashes, no lesions. NEURO: No headache, no focal weakness. HEME: No visible bruises PSYCH: Normal mood PFSH ED PFSH: Medical History (Updated 07/08/21 @ 18:52 by Jenny Reyes MD) Chronic diarrhea CVA (cerebral vascular accident) History of anemia History of anxiety History of aphasia History of bipolar disorder History of depression History of GI bleed History of hypothyroidism History of posttraumatic stress disorder (PTSD) Hx of kidney disease Hx of primary hypertension Hx of type 2 diabetes mellitus Hypothyroidism Suspected COVID-19 virus infection Tension headache, chronic TIA (transient ischemic attack) Surgical History History of back surgery Hx of appendectomy Hx of cholecystectomy Hx of hysterectomy Hx of neck surgery Social History Alcohol intake: current Alcohol intake frequency: holidays/special occasions only Physical Exam Narrative: EXAM NARRATIVE: Head: Atraumatic Eyes: PERRL, conjunctiva without injection ENT: Mucous membrane moist NECK: Supple, ROM intact LUNGS: LCTAB, no crackles/rhonchi CV: RRR ABDOMEN: Soft, nontender in all quadrants EXTREMITY: Normal ROM of the R knee, +moderate R knee swelling, +mild R calf tenderness to palpation, +mild R ankle tenderness to palaption, cap refill< 3 seconds in the R leg, 2+DP/PT pulses R side, neurovascular exam intact R SKIN: No rash or erythema NEURO: Awake and alert, no focal motor deficits PSYCH: Normal mood and affect Course Vital Signs: Vital signs: Vital Signs Temperature 98.9 F 07/08/21 18:17 Pulse Rate 83 07/08/21 19:03 Respiratory Rate 16 07/08/21 19:03 Blood Pressure 125/80 07/08/21 19:03 Pulse Oximetry 98 07/08/21 19:03 MDM - General Adult MDM Narrative: Medical decision making narrative: 65-year-old female presenting to the emergency room after twisting the right knee and hitting it against the ground. On exam, patient has full range of motion plus right knee swelling, neurovascular exam intact in the right lower extremity, patient has been right ankle and tib-fib tenderness palpation. Cap refill is within normal limit. Xray not showing signs of acute acute fractures currently. Patient was placed in a knee immobilizer with crutches with instruction on how to use. Patient received Tylenol with improvement in pain in the emergency room. XR ankle showed distal fibular fracture. Knee CT negative for acute fx. Patient had midfoot tenderness but negative for Lisfranc or other midfood injuries. I have given patient follow up with our counseling case manager to be seen by Dr. Kendrick (at the patient's request) next week for evaluation of knee swelling/possible ligamentous injuries and R distal fibular fracture. Patient aware of a call from our counseling case manager to schedule for appointment(s) and verbalizes understanding of the importance of following up. Rx: Tylenol, lidocaine patch, and menthol PRN pain, percocet x 9 tablets PRN pain Disposition: Discharge. Patient counseled regarding diagnostic impression, treatment plan. Patient given ED strict return precautions to return for continuation, worsening, or development of new symptoms. Instructed to f/u w/ Orthopedics regarding symptoms today. Patient verbalized understanding. Is given return precaution for any worsening symptoms including worsening pain, numbness, difficulty moving the extremity, or new concerning complaints Imaging Data^: Other Imaging: Radiologist's impression: [address], [place] [address]DNhc ReportSigned Patient: Kaylee Ch #: [id number]: 5Acct#:[id number]/Sex: 65 / FADM Date: 07/08/21Loc: ERRoom/Bed:Attending Dr: Ordering Provider/Ordering MD: Jenny Reyes MD Date of Service: 07/08/21 Procedure(s): XR foot RT 2V 48041 Accession Number(s): [id number] Report Number: [id number] PROCEDURE INFORMATION: Exam: XR Right Foot Exam date and time: 07/08/2021 8:21 PM Age: 65 years old Clinical indication: Pain; Foot; Right; Additional info: Midfoot pain TECHNIQUE: Imaging protocol: XR Right foot. Views: 1 or 2 views. COMPARISON: CR (LOW EXM, ) 07/08/2021 6:39 PM FINDINGS: Bones/joints: No periosteal reaction or inflammatory erosions. No acute fracture. No dislocation. The Lisfranc joint alignment is intact. No bony destruction or osteomyelitis. Soft tissues: There is no foreign body. XR/XR foot RT 2V 82531 IMPRESSION: No acute bony abnormality is identified. Dictated By:Sia Agrawaligned By:Heavenly Agrawal Date/Time:07/08/21/ [address] [place], [place] [address]OT Scan ReportSigned Patient: Kaylee Ch #: [id number]: 5Acct#:[id number]/Sex: 65 / FADM Date: 07/08/21Loc: ERRoom/Bed:Attending Dr: Ordering Provider/Ordering MD: Jenny Reyes MD Date of Service: 07/08/21 Procedure(s): CT knee RT wo con* 83122 Accession Number(s): [id number] Report Number: [id number] PROCEDURE INFORMATION: Exam: CT Right Lower Extremity Without Contrast, Knee Exam date and time: 07/08/2021 7:26 PM Age: 65 years old Clinical indication: Injury or trauma; Fall; Blunt trauma; Knee; Right; Additional info: Eval for intraarticular fracture TECHNIQUE: Imaging protocol: CT of the Right lower extremity without contrast was performed. Exam focused on the knee. Radiation optimization: All CT scans at this facility use at least one of these dose optimization techniques: automated exposure control; mA and/or kV adjustment per patient size (includes targeted exams where dose is matched to clinical indication); or iterative reconstruction. COMPARISON: CR (LOW EXM, ) 07/08/2021 6:31 PM RADIATION DOSE METRICS: Total DLP (mGy-cm): 188.49 FINDINGS: Bones/joints: There is a moderate size knee joint effusion. Severe osteoarthritic changes are noted especially in the medial weight-bearing knee joint where there is marked joint space narrowing, sclerosis and marginal osteophytes. Several osteochondral bodies are noted in the knee joint with the large is in the lateral knee joint adjacent to the tibia measuring 6.5 mm in greatest dimension. There is some mild deformity of the anterolateral tibia suspected to be a remote fracture. No acute fracture or dislocation. Mild degenerative changes in the patellofemoral compartment are noted. There is an incidental large fabella. Soft tissues: There is mild subcutaneous edema anterior and medial to the knee. The muscles are appropriate in density. CT/CT knee RT wo con* [id number] IMPRESSION: There are severe degenerative changes in the knee joint greatest in the medial compartment. Multiple intra-articular bodies are noted. No acute fracture. Dictated By:Heavenly Agrawal By:Heavenly Agrawal Date/Time:07/08/212013DD/ [address] [address]YReq ReportSigned Patient: Kaylee Ch #: [id number]: 5Acct#:[id number]/Sex: 65 / FADM Date: 07/08/21Loc: ERRoom/Bed:Attending Dr: Ordering Provider/Ordering MD: Jenny Reyes MD Date of Service: 07/08/21 Procedure(s): XR tibia fibula RT 2V 37057 Accession Number(s): [id number] Report Number: [id number] PROCEDURE INFORMATION: Exam: XR Right Tibia and Fibula Exam date and time: 07/08/2021 6:37 PM Age: 65 years old Clinical indication: Injury or trauma; Fall; Blunt trauma and swelling (edema); Right; Patient HX: PT fell today; C/O pain RT knee and swelling. Hurts to put weight on it. TECHNIQUE: Imaging protocol: XR Right tibia and fibula. Views: 2 views. COMPARISON: CR (LOW EXM, ) 07/08/2021 6:31 PM FINDINGS: Bones/joints: A subtle fracture suspected on the ankle radiograph is not visible on this exam. Ankle and knee alignment are normal. No acute fracture is seen. Soft tissues: Visible soft tissues are unremarkable. XR/XR tibia fibula RT 2V 61732 IMPRESSION: No acute findings. Dictated By:Gianni Gee MDSigned By:Gianni Gee MDSigned Date/Time:07/08/211919DD/ [address] [address]EDbs ReportSigned Patient: Kaylee Ch #: [id number]: [facility]ct#:[id number]/Sex: 65 / FADM Date: 07/08/21Loc: ERRoom/Bed:Attending Dr: Ordering Provider/Ordering MD: Jenny Reyes MD Date of Service: 07/08/21 Procedure(s): XR ankle RT 2V 79084 Accession Number(s): [id number] Report Number: [id number] PROCEDURE INFORMATION: Exam: XR Right Ankle Exam date and time: 07/08/2021 6:37 PM Age: 65 years old Clinical indication: Injury or trauma; Blunt trauma and swelling (edema); Right; Patient HX: Fall today; C/O pain RT knee and swelling. Hurts to put weight on TECHNIQUE: Imaging protocol: XR Right ankle. Views: 1 or 2 views. COMPARISON: CR (LOW EXM, ) 07/08/2021 6:31 PM FINDINGS: Bones/joints: Subtle incomplete linear lucency suggesting fracture in the distal fibula above the tibiofibular syndesmosis visible on the frontal view. Tibia is intact. Ankle mortise alignment is normal. The hindfoot is unremarkable. No ankle joint effusion. Soft tissues: Normal. XR/XR ankle RT 2V 16839 IMPRESSION: Suspect nondisplaced distal fibular fracture above the syndesmosis. Findings are very subtle. Correlate with physical exam. Dictated By:Gianni Gee MDSigned By:Gianni Geeigned Date/Time:07/08/21[address] [place], [place] [address]UGqv ReportSigned Patient: Kaylee Ch #: [id number]: 5Acct#:[id number]/Sex: 65 / FADM Date: 07/08/21Loc: ERRoom/Bed:Attending Dr: Ordering Provider/Ordering MD: Jenny Reyes MD Date of Service: 07/08/21 Procedure(s): XR knee RT 1-2V 58670 Accession Number(s): [id number] Report Number: [id number] PROCEDURE INFORMATION: Exam: XR Right Knee Exam date and time: 07/08/2021 6:26 PM Age: 65 years old Clinical indication: Injury or trauma; Fall; Blunt trauma and swelling (edema); Right; Patient HX: PT fell today; C/O pain and swelling knee; Additional info: Fell on knee TECHNIQUE: Imaging protocol: XR Right knee. Views: 1 or 2 views. COMPARISON: No relevant prior studies available. FINDINGS: Bones/joints: There are small smooth round to oval osseous bodies projecting over the medial and lateral compartment of the joint on the frontal view measuring up to 6 mm diameter in the lateral compartment, suggesting intra-articular loose bodies. No acute fracture. There is a large joint effusion. Soft tissues: Normal. XR/XR knee RT 1-2V 30980 IMPRESSION: 1. No visible fracture. 2. Knee effusion. 3. Possible intra-articular loose bodies. Dictated By:Gianni Gee MDSigned By:Gianni Geeigned Date/Time:07/08/21 1922DD/ 1826 Discharge Plan Discharge Patient Disposition: Home Clinical Impression: Acute knee pain, Knee swelling Condition: Stable Prescriptions: New acetaminophen 500 mg tablet 500 mg PO Q6H PRN (Reason: pain) 5 Days Qty: 20 RF: 0 lidocaine 5 % adhesive patch,medicated 1 patch topical DAILY PRN (Reason: pain) 10 Days Qty: 10 RF: 0 Biofreeze (menthol) 5 % gel 1 ea topical BID PRN (Reason: pain) 10 Days Qty: 1 RF: 0 Percocet 5-325 mg tablet 1 tab PO Q8H PRN (Reason: pain) 3 Days Qty: 9 RF: 0 No Action potassium chloride 20 mEq tablet extended release 20 meq PO DAILY@1000 RF: 0 metformin 1,000 mg tablet 1,000 mg PO BID@1000,2100 RF: 0 pregabalin [Lyrica] 50 mg capsule 50 mg PO BID@1000,2099 RF: 0 omeprazole 20 mg tablet,delayed release (DR/EC) 20 mg PO BID@999,2099 RF: 0 Folbic 2.5-25-2 mg tablet 1 tab PO DAILY@1000 RF: 0 propranolol 80 mg capsule,extended release 24 hr 80 mg PO BID@999,2099 RF: 0 duloxetine 60 mg capsule,delayed release(DR/EC) 120 mg PO DAILY@1000 RF: 0 lamotrigine 200 mg tablet 200 mg PO BID@1000,2100 RF: 0 aspirin [Adult Low Dose Aspirin] 81 mg tablet,delayed release (DR/EC) 81 mg PO DAILY@2100 RF: 0 quetiapine [Seroquel] 100 mg tablet 100 - 300 mg PO DAILY@2100 RF: 0 diazepam 10 mg tablet 20 mg PO DAILY PRN (Reason: Anxiety) RF: 0 Lantus U-100 Insulin 100 unit/mL solution 40 unit SUBCUT DAILY RF: 0 mupirocin 2 % ointment 1 applic topical BID Qty: 22 RF: 0 (DME) crutches Qty: 1 RF: 0 (DME) Crutches Qty: 1 RF: 0 (DME) ORTHO WEDGE Qty: 1 RF: 0 oxycodone-acetaminophen [Percocet] 5-325 mg tablet 1 tab PO Q4H PRN (Reason: pain) 7 Days Qty: 40 RF: 0 (DME) Ortho Wedge Shoe Qty: 1 RF: 0 glimepiride 4 mg tablet 4 mg PO BID@1000,2100 RF: 0 multivitamin Tablet 1 tab PO DAILY@1000 RF: 0 cyclobenzaprine 10 mg tablet 10 mg PO TID PRN (Reason: MUSCLE SPASMS) RF: 0 atorvastatin 20 mg tablet 20 mg PO DAILY@1000 RF: 0 hydrocodone-acetaminophen 10-325 mg tablet 1 tab PO Q8H PRN (Reason: Pain) RF: 0 levothyroxine 200 mcg tablet 200 mcg PO DAILY@1000 RF: 0 topiramate 100 mg tablet 100 mg PO DAILY@1000 RF: 0 Hair, Skin, Nails with Biotin 7.5-7.5-1,250 mg-unit-mcg Tablet,Chewable 1 tab PO DAILY@1000 RF: 0 Vitamin B-12 1 tab PO DAILY@1000 RF: 0 Vitamin D3 1 tab PO DAILY@1000 RF: 0 Discharge Orders: Discharge ED (Routine); Ordered 07/08/21 Ordered By: Jenny Reyes Referrals: Carter Yusuf MD [Primary Care Provider] - Discharge Diet: Advance as tolerated Discharge Activity: Resume usual activity Patient Instructions: Knee Pain (ED) Activity Restrictions/Additional Instructions: Our counseling case manager will have you follow-up with Dr. Kendrick in the next few days. You would be expected to have a phone call with our counseling case manager who will put you on the schedule. Come back if the pain is worse, if any falls, injuries, or any new or concerning complaints. Take off your splint if you have any worsening pain, swelling, numbness, or any new concerning complaints. 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
[2021-07-08 19:03] VITALS: BP 125/80; PULSE 83; RESP 16; O2SAT 98
[2021-07-08] MEDS: acetaminophen 500 mg Tablet PO (19:03)
--- NOTE | 2021-07-08 19:26 | CTR_ITS ---
PROCEDURE INFORMATION: Exam: CT Right Lower Extremity Without Contrast, Knee Exam date and time: 07/08/2021 7:26 PM Age: 65 years old Clinical indication: Injury or trauma; Fall; Blunt trauma; Knee; Right; Additional info: Eval for intraarticular fracture TECHNIQUE: Imaging protocol: CT of the Right lower extremity without contrast was performed. Exam focused on the knee. Radiation optimization: All CT scans at this facility use at least one of these dose optimization techniques: automated exposure control; mA and/or kV adjustment per patient size (includes targeted exams where dose is matched to clinical indication); or iterative reconstruction. COMPARISON: CR (LOW EXM, ) 07/08/2021 6:31 PM RADIATION DOSE METRICS: Total DLP (mGy-cm): 188.49 FINDINGS: Bones/joints: There is a moderate size knee joint effusion. Severe osteoarthritic changes are noted especially in the medial weight-bearing knee joint where there is marked joint space narrowing, sclerosis and marginal osteophytes. Several osteochondral bodies are noted in the knee joint with the large is in the lateral knee joint adjacent to the tibia measuring 6.5 mm in greatest dimension. There is some mild deformity of the anterolateral tibia suspected to be a remote fracture. No acute fracture or dislocation. Mild degenerative changes in the patellofemoral compartment are noted. There is an incidental large fabella. Soft tissues: There is mild subcutaneous edema anterior and medial to the knee. The muscles are appropriate in density. CT/CT knee RT wo con* [id number] IMPRESSION: There are severe degenerative changes in the knee joint greatest in the medial compartment. Multiple intra-articular bodies are noted. No acute fracture.
--- NOTE | 2021-07-08 20:21 | XRR_ITS ---
PROCEDURE INFORMATION: Exam: XR Right Foot Exam date and time: 07/08/2021 8:21 PM Age: 65 years old Clinical indication: Pain; Foot; Right; Additional info: Midfoot pain TECHNIQUE: Imaging protocol: XR Right foot. Views: 1 or 2 views. COMPARISON: CR (LOW EXM, ) 07/08/2021 6:39 PM FINDINGS: Bones/joints: No periosteal reaction or inflammatory erosions. No acute fracture. No dislocation. The Lisfranc joint alignment is intact. No bony destruction or osteomyelitis. Soft tissues: There is no foreign body. XR/XR foot RT 2V 84838 IMPRESSION: No acute bony abnormality is identified.
[2021-07-08 21:23] VITALS: BP 135/76; PULSE 81; RESP 16; TEMP 37.2; O2SAT 98
[2021-07-08 22:12] VITALS: BP 135/76; PULSE 81; RESP 16; TEMP 37.2; O2SAT 98
--- NOTE | 2021-07-11 10:28 | DCPLANNER ---
development manager had message to schedule a follow up appointment for patient with ortho. development manager called the ortho clinic, spoke with Nabila, gave clinic patients information. development manager was told that patients information would be printed and reviewed. Clinic will call patient with appointment information.
--- NOTE | 2021-07-22 05:43 | DCPLANNER ---
Patient had a follow up appointment with Dr. Kendrick at [facility] - patient did attend appointment.
== END 2021-07-08 21:55 | disposition home or self-care (01) ==
PROVIDERS: Emergency Provider Emergency Medicine; PCP Family Medicine
DX: M25.561 Pain in right knee (principal); M79.89 Other specified soft tissue disorders; Z79.84 Long term (current) use of oral hypoglycemic drugs; Z79.82 Long term (current) use of aspirin; Z79.4 Long term (current) use of insulin; Z86.73 Personal history of transient ischemic attack (TIA), and cerebral infarction without residual deficits; I10 Essential (primary) hypertension; E11.9 Type 2 diabetes mellitus without complications
CPT/HCPCS: 29515; 29530; 73560; 73590; 73600; 73620; 73700; 99283; A4590

== ENCOUNTER 2021-08-18 16:25 | Outpatient (CLI) | payer MEDICARE, OTHER, SELFPAY | END 2021-08-18 16:26 | disposition home or self-care (01) | LOC: LAB 16:45 | PROVIDERS: PCP Family Medicine; Visit Provider Nurse Practitioner Adult Health | DX: R19.7 Diarrhea, unspecified (principal) | CPT/HCPCS: 83630; 83993; 87493; 87506 ==

== ENCOUNTER 2021-08-20 10:54 | Emergency (ER) | payer MEDICARE, OTHER, SELFPAY ==
[2021-08-20 11:06] VITALS: BP 121/77; PULSE 82; RESP 14; TEMP 36.7; O2SAT 100; BMI 30.7
--- NOTE | 2021-08-20 11:41 | ED_ITS ---
HPI - URI/Sore Throat General: Chief Complaint: General Medical Stated Complaint: rosalva rae Thinks its a severe sinus infection Time Seen by Provider: 08/20/21 11:25 Source: patient Mode of arrival: ambulatory Limitations: no limitations History of Present Illness: Patient is a 65-year-old female who presents to ED today with a complaint of sinus pain/pressure, nasal congestion with thick yellow sputum, headache, and hoarseness. Patient states symptoms of been present over the past 2 days. She apparently contacted her PCP Dr. Yusuf and spoke to him on the phone and he recommended she come to the ED for further evaluation. Patient is vaccinated for COVID excluding her booster. She reports a previous COVID infection. Patient is not been running fevers. She has no difficulty swallowing. She does not complain of a cough, shortness of breath, or difficulty breathing. MD elicited complaint: sore throat, nasal congestion and sinus pain Onset (ago): day(s) Consistency: constant Description of mucous: yellow Able to tolerate fluids by mouth: Yes Exacerbating factors: other (lying flat-states it makes her head congestion worse) Associated symptoms: Reports headache(s), nasal congestion and sinus pain; Deny chills, chest pain, ear or mastoid pain, fever(s), nausea or vomiting Treatments prior to arrival: none Review of Systems Const: Denies: fever(s), chills, body aches, fatigue or malaise Eyes: Denies: change in vision, blurry vision, photophobia, floaters or seeing flashes ENMT: Reports: odynophagia, hoarseness, nasal discharge, nasal congestion and sinus pain; Denies: throat pain, swelling of lips/tongue, oral sores, ear or mastoid pain, ear discharge, change in hearing or tinnitus Card: Denies: chest pain Resp: Denies: dyspnea, productive cough, non-productive cough or chest congestion GI: Denies: nausea or vomiting Musc: Denies: neck pain Skin/Breast: Denies: rash Neuro: Reports: headache(s); Denies: numbness in extremities, weakness in extremities, sensory changes, difficulty walking, dizziness, confusion, Slurred speech present or difficulty communicating thoughts [facility] ED PFSH: Medical History (Updated 08/20/21 @ 11:43 by SAM Vargas) Chronic diarrhea CVA (cerebral vascular accident) History of anemia History of anxiety History of aphasia History of bipolar disorder History of depression History of GI bleed History of hypothyroidism History of posttraumatic stress disorder (PTSD) Hx of kidney disease Hx of primary hypertension Hx of type 2 diabetes mellitus Hypothyroidism Suspected COVID-19 virus infection Tension headache, chronic TIA (transient ischemic attack) Surgical History History of back surgery Hx of appendectomy Hx of cholecystectomy Hx of hysterectomy Hx of neck surgery Social History Smoking and tobacco status: never smoked Alcohol intake: current Alcohol intake frequency: holidays/special occasions only Physical Exam Const: COMMON NORMALS: no acute distress, patient oriented x3, no limitations and alert GENERAL APPEARANCE: cooperative NUTRITIONAL APPEARANCE: overweight HENMT: COMMON NORMALS: normocephalic, atraumatic, hearing grossly normal bilaterally, external ears normal, EAC's normal, TM's normal bilaterally, Normal external nose present, moist oral mucous membranes, oropharynx normal and gingi va normal HEAD & SCALP: normal to inspection, normocephalic and atraumatic FACE & SINUS: sinus tenderness maxillary NOSE: Normal external nose present EXTERNAL EAR: Yes external ears normal EXTERNAL AUDITORY CANAL: EAC's normal TYMPANIC MEMBRANE: TM's normal bilaterally MOUTH: Normal oral and palatal mucosa present, lip normal and tongue normal THROAT: posterior oropharynx normal, tonsils normal and uvula midline Eye: COMMON NORMALS: Equal, round and reactive pupils present and EOMs intact bilaterally GENERAL EYE: appearance normal, both eyes and all related structures PUPIL: Yes Equal, round and reactive pupils present Neck/C-Spine: COMMON NORMALS: full ROM, no lymphadenopathy and no meningeal signs Resp: COMMON NORMALS: normal respiratory effort and clear to auscultation bilaterally AUSCULTATION: clear to auscultation bilaterally Cardio: COMMON NORMALS: regular rate and regular rhythm RATE: regular rate RHYTHM: regular rhythm Neuro: PETE COMA SCALE: document GCS findings Pete coma scale eye opening: Spontaneous [place] coma scale verbal response: Orientated [place] coma scale motor response: Obey commands [place] coma scale total score: 15 COMMON NORMALS: patient oriented x3 and CN's II-XII intact bilaterally SENSORIUM/ORIENTATION: Yes alert MENINGEAL SIGNS: Yes no meningeal signs Skin: COMMON NORMALS: no rashes or lesions noted GENERAL SKIN EXAM: no rashes or lesions noted Course Vital Signs: Vital signs: Vital Signs Temperature 98.1 F 08/20/21 11:06 Pulse Rate 82 08/20/21 11:06 Respiratory Rate 14 08/20/21 11:06 Blood Pressure 121/77 08/20/21 11:06 Pulse Oximetry 100 08/20/21 11:06 MDM - URI/Sore Throat Medical Decision Making Will send [facility]ON and place pt on abx for sinusitis. Discussed conservative therapies at home as well. She can follow up with Dr. Yusuf this week if she fails to improve. Return to ED precautions verbally discussed with patient. Discharge Plan Discharge Patient Disposition: Home Clinical Impression: Sinusitis Qualifiers: Sinusitis location: unspecified location Chronicity: acute Recurrence: non- recurrent Qualified Code(s): J01.90 - Acute sinusitis, unspecified Condition: Stable Prescriptions: New Augmentin 875-125 mg tablet 1 tab PO Q12H 7 Days Qty: 14 0RF No Action potassium chloride 20 mEq tablet extended release 20 meq PO DAILY@1000 0RF metformin 1,000 mg tablet 1,000 mg PO BID@1000,2100 0RF pregabalin [Lyrica] 50 mg capsule 50 mg PO BID@1000,2100 0RF omeprazole 20 mg tablet,delayed release (DR/EC) 20 mg PO BID@1000,2100 0RF Folbic 2.5-25-2 mg tablet 1 tab PO DAILY@1000 0RF propranolol 80 mg capsule,extended release 24 hr 80 mg PO BID@1000,2100 0RF duloxetine 60 mg capsule,delayed release(DR/EC) 120 mg PO DAILY@1000 0RF lamotrigine 200 mg tablet 200 mg PO BID@1000,2100 0RF aspirin [Adult Low Dose Aspirin] 81 mg tablet,delayed release (DR/EC) 81 mg PO DAILY@2100 0RF quetiapine [Seroquel] 100 mg tablet 100 - 300 mg PO DAILY@2100 0RF diazepam 10 mg tablet 20 mg PO DAILY PRN (Reason: Anxiety) 0RF Lantus U-100 Insulin 100 unit/mL solution 40 unit SUBCUT DAILY 0RF Rx Instructions: PT STATES THAT SHE USES 20 UNITS IN THE MORNING AT 1000 AND 40 UNITS IN THE EVENING AT 2100 mupirocin 2 % ointment 1 applic topical BID Qty: 22 0RF Rx Instructions: pea sized amount to each nostril twice daily 6 days prior to total joint replacement (DME) crutches Qty: 1 0RF Rx Instructions: As directed (DME) Crutches Qty: 1 0RF Rx Instructions: As directed (DME) ORTHO WEDGE Qty: 1 0RF Rx Instructions: As directed oxycodone-acetaminophen [Percocet] 5-325 mg tablet 1 tab PO Q4H PRN (Reason: pain) 7 Days Qty: 40 0RF (DME) Ortho Wedge Shoe Qty: 1 0RF Rx Instructions: As directed glimepiride 4 mg tablet 4 mg PO BID@1000,2100 0RF multivitamin Tablet 1 tab PO DAILY@1000 0RF cyclobenzaprine 10 mg tablet 10 mg PO TID PRN (Reason: MUSCLE SPASMS) 0RF atorvastatin 20 mg tablet 20 mg PO DAILY@1000 0RF hydrocodone-acetaminophen 10-325 mg tablet 1 tab PO Q8H PRN (Reason: Pain) 0RF levothyroxine 200 mcg tablet 200 mcg PO DAILY@1000 0RF topiramate 100 mg tablet 100 mg PO DAILY@1000 0RF Hair, Skin, Nails with Biotin 7.5-7.5-1,250 mg-unit-mcg Tablet,Chewable 1 tab PO DAILY@1000 0RF Vitamin B-12 1 tab PO DAILY@1000 0RF Vitamin D3 1 tab PO DAILY@1000 0RF Discharge Orders: Discharge ED (Routine); Ordered 08/20/21 Ordered By: Evita Rey Referrals: Carter Yusuf MD [Primary Care Provider] - Coding Level of Care Code ED Medication Coordinator for Jaret Deal
[2021-08-21 23:08] LABS: Quest SARS-CoV-2 RNA NOT DETECTED (NOT DETECTED)
== END 2021-08-20 11:53 | disposition home or self-care (01) ==
PROVIDERS: Emergency Provider Physician Assistant; PCP Family Medicine
DX: J01.90 Acute sinusitis, unspecified (principal); Z79.84 Long term (current) use of oral hypoglycemic drugs; Z79.4 Long term (current) use of insulin; Z79.82 Long term (current) use of aspirin; Z86.73 Personal history of transient ischemic attack (TIA), and cerebral infarction without residual deficits; E11.9 Type 2 diabetes mellitus without complications; I10 Essential (primary) hypertension; Z20.822 Contact with and (suspected) exposure to COVID-19
CPT/HCPCS: 87635; 99282

== ENCOUNTER 2021-08-26 14:22 | Outpatient (CLI) | payer MEDICARE, OTHER, SELFPAY ==
--- NOTE | 2021-08-26 14:41 | MR_ITS ---
WS: [id number] MRI RIGHT KNEE HISTORY: Pain. COMPARISON: CT knee 07/08/2021 Anterior cruciate ligament: Intact. Posterior cruciate ligament: Intact. Medial collateral ligament: Small amount of fluid on both sides of the MCL but no tear. Posterior lateral corner structures: Intact. Medial menisci: Mild intrasubstance degeneration in the posterior horn. No tear identified. Lateral meniscus: Intact. Normal signal, size and shape. Extensor mechanism: Distal quadriceps tendon and patellar tendons are intact. Fluid and soft tissue: Large suprapatellar joint effusion. Mild soft tissue edema surrounding the kne e. No Zavala's cyst. Osseous and articular structures: Patellofemoral compartment: Mild narrowing of patellofemoral compartment. Mild chondromalacia involvi ng the medial patellar facet. No marrow edema. Medial compartment: Mild narrowing of the medial compartment with small osteophytes at the joint line . Mild thinning and fissuring of the cartilage. Lateral compartment: Mild narrowing of the lateral compartment. Near complete loss of cartilage espec ially towards the mid and anterior knee joint. Edema and increased T2 signal in the femoral condyle a nd tibial plateau. No fracture. MR/MR knee RT wo con* [id number] IMPRESSION: 1. Large suprapatellar joint effusion. 2. Mild narrowing of the lateral compartment with near complete loss of cartil age within the joint. 3. Marrow edema in the lateral tibial plateau and femoral condyle. No fracture . 4. Mild medial compartment internal derangement.
== END 2021-08-26 14:23 | disposition home or self-care (01) ==
LOC: RAD 14:27
PROVIDERS: PCP Family Medicine; Visit Provider Orthopaedic Surgery
DX: M25.461 Effusion, right knee (principal); R60.0 Localized edema; M23.91 Unspecified internal derangement of right knee
CPT/HCPCS: 73721

== ENCOUNTER → 2021-09-26 15:36 | Outpatient (BNVA) | payer MEDICARE, OTHER, SELFPAY | PROVIDERS: PCP Family Medicine; Referring Provider Family Medicine; Visit Provider Specialist | DX: G56.03 Carpal tunnel syndrome, bilateral upper limbs (principal); G56.23 Lesion of ulnar nerve, bilateral upper limbs | CPT/HCPCS: 95910 ==

== ENCOUNTER 2021-11-03 14:32 | Outpatient (CLI) | payer MEDICARE, OTHER, SELFPAY | END 2021-11-03 14:33 | disposition home or self-care (01) | PROVIDERS: PCP Family Medicine; Visit Provider Family Medicine | DX: R19.7 Diarrhea, unspecified (principal) | CPT/HCPCS: 87177; 87209; 87493; 87506 ==

== ENCOUNTER → 2021-11-30 13:05 | Outpatient (BNVA) | payer MEDICARE, OTHER, SELFPAY | PROVIDERS: PCP Family Medicine; Referring Provider Family Medicine; Visit Provider Orthopaedic Surgery | DX: G56.01 Carpal tunnel syndrome, right upper limb (principal); G56.21 Lesion of ulnar nerve, right upper limb; G56.22 Lesion of ulnar nerve, left upper limb; G56.02 Carpal tunnel syndrome, left upper limb | CPT/HCPCS: 99213 ==

== ENCOUNTER 2021-12-08 06:01 | Day surgery (SDC) | payer MEDICARE, OTHER, SELFPAY ==
[2021-12-07 11:53] VITALS: BMI 29.0
[2021-12-08] VITALS (8 sets, daily range): BP systolic 132–157; BP diastolic 64–85; PULSE 64–69; RESP 8–18; TEMP 36.1–36.3; O2SAT 95–100
[2021-12-08 06:35] LABS: Glucose Point of Care 93 mg/dL (70-110)
[2021-12-08] MEDS: sodium chloride 0.9% 1,000 ML 30 ML IV (06:49)
--- NOTE | 2021-12-08 07:19 | ANES.PREANE2 ---
Pre-Anesthetic Assessment Height/Weight: Height 1.68 m Weight 81.647 kg Temp Pulse Resp BP Pulse Ox 97 F L 69 16 132/75 95 12/08/21 06:31 12/08/21 06:31 12/08/21 06:31 12/08/21 06:31 12/08/21 06:31 Preop Diagnosis: Cubital tunnel syndrome/Carpal tunnel syndrome of right arm Operation Date: 12/08/21 07:50 Proposed Procedures p Right Ulna Nerve Decompression 91877 Right carpal tunnel release:[id number](Right) - Lakhwinder Kendrick MD s Carpal Tunnel Release(Right) - Lakhwinder Kendrick MD Familial anesthetic complications: None Was Beta Deedee taken within 24 hours: Yes Was Clonidine taken within 24 hours: N/A Last intake: Intake Last Liquid Date 12/07/21 Last Liquid Time 21:00 Last Solid Date 12/07/21 Last Solid Time 18:00 Social No alcohol and No tobacco Exam alert, oriented x 3, clear to auscultation bilaterally and regular rate & rhythm Airway Submandibular: within normal limits Cervical ROM: within normal limits Mallampati: Class II Dentition: full CV/HEM Hypertension Metabolic Diabetes Mellitus, Hyperlipidemia and Thyroid Disease Anesthetic Plan ASA status: 2 Anesthesia: General Medications/Allergies Home Medications Medication Instructions Recorded Confirmed Last Taken Type aspirin 81 mg tablet,delayed 81 mg PO DAILY@209908/28/19 12/07/21 12/06/21 20:00 History release (Adult Low Dose Aspirin) diazepam 10 mg tablet 20 mg PO DAILY PRN tab 08/28/19 12/08/21 12/07/21 History folic acid-vit B6-vit B12 2.5 1 tab PO DAILY@1000 08/28/19 12/08/21 12/07/21 History mg-25 mg-2 mg tablet (Folbic) insulin glargine 100 unit/mL 30 unit SUBCUT DAILY ml 08/28/19 12/08/21 12/07/21 History subcutaneous solution (Lantus U-100 Insulin) lamotrigine 200 mg tablet 200 mg PO BID@1000,209908/28/19 12/08/21 12/07/21 History potassium chloride 20 mEq 20 meq PO DAILY@1000 08/28/19 12/08/21 12/07/21 History tablet,extended release propranolol 80 mg capsule,24 80 mg PO BID@1000,2100 cap 08/28/19 12/08/21 12/08/21 History hr,extended release quetiapine 100 mg tablet (Seroquel) 100 - 300 mg PO DAILY@209908/28/19 12/08/21 12/07/21 History glimepiride 4 mg tablet 4 mg PO BID@1000,2100 08/29/19 12/08/21 12/06/21 History Crutches #1 ea 09/16/19 12/08/21 Unknown Rx crutches #1 ea 09/16/19 11/30/21 Unknown Rx ORTHO WEDGE #1 ea NS 09/30/19 11/30/21 Unknown Rx Ortho Wedge Shoe #1 ea 10/01/19 11/30/21 Unknown Rx Vitamin B-12 1 tab PO DAILY@1000 11/12/20 12/08/21 12/07/21 History ascorbic acid 7.5 mg-vit E 7.5 1 tab PO DAILY@1000 11/12/20 12/08/21 12/07/21 History unit-biotin 1,250 mcg chewable tablet (Hair,Skin,Nails with Biotin) atorvastatin 20 mg tablet 20 mg PO DAILY@1000 11/12/20 12/08/21 12/07/21 History hydrocodone 10 mg-acetaminophen 1 tab PO Q8H PRN 11/12/20 12/07/21 11/23/21 History 325 mg tablet levothyroxine 200 mcg tablet 200 mcg PO DAILY@1000 11/12/20 12/08/21 12/07/21 History multivitamin 1 tab PO DAILY@1000 11/12/20 12/08/21 12/07/21 History topiramate 100 mg tablet 100 mg PO DAILY@1000 11/12/20 12/08/21 12/07/21 History meloxicam 15 mg tablet 15 mg PO DAILY #30 tab 09/20/21 12/07/21 12/06/21 20:00 Rx Allergies Allergy/AdvReac Type Severity Reaction Status Date / Time azithromycin [From Zithromax] Allergy rash Verified 09/26/21 15:42 lisinopril [From Zestril] Allergy ALGY-Swell Verified 09/26/21 15:42 Lip/Tongue/Throat Current Medications Generic Name Dose Route Start Last Admin Trade Name Freq PRN Reason Stop Dose Admin Sodium Chloride 1,000 mls @ 30 mls/hr 12/08/21 06:15 12/08/21 06:49 Sodium Chloride 0.9% IV 12/09/21 06:14 30 mls/hr .Q24H JACQUELINE Administration PFSH Anesthesia Medical History (Updated 11/30/21 @ 13:52 by Lakhwinder Kendrick MD) Chronic diarrhea CVA (cerebral vascular accident) History of anemia History of anxiety History of aphasia History of bipolar disorder History of depression History of GI bleed History of hypothyroidism History of posttraumatic stress disorder (PTSD) Hx of kidney disease Hx of primary hypertension Hx of type 2 diabetes mellitus Hypothyroidism Suspected COVID-19 virus infection Tension headache, chronic TIA (transient ischemic attack) Surgical History History of back surgery Hx of appendectomy Hx of cholecystectomy Hx of hysterectomy Hx of neck surgery Social History Smoking and tobacco status: never smoked Alcohol intake: current Alcohol intake frequency: holidays/special occasions only Data Anesthesia Cardiac Studies: No Data to Display
--- NOTE | 2021-12-08 08:12 | W.PM.OPSUD ---
Surgery/Procedure H&P Update DATE OF PROCEDURE: December 08, 2021 DATE H&P PERFORMED: 11/30/21 H&P UPDATE INFORMATION: I have reviewed H&P completed within last 30 days PREOP DIAGNOSIS: Cubital tunnel syndrome/Carpal tunnel syndrome of right arm PLANNED PROCEDURE: Operation Date: 12/08/21 07:50 Proposed Procedures p Right Ulna Nerve Decompression 00479 Right carpal tunnel release:12013(Right) - Lakhwinder Kendrick MD s Carpal Tunnel Release(Right) - Lakhwinder Kendrick MD
--- NOTE | 2021-12-08 09:20 | P.OP_ITS ---
Operative Report Date of procedure: December 08, 2021 Pre-op diagnosis: Preop Diagnosis Cubital tunnel syndrome/Carpal tunnel syndrome of right arm Post-op diagnosis: same Procedure done: Right ulnar nerve decompression, right carpal tunnel release Surgeon: Lakhwinder Kendrick Anesthesia: General Estimated blood loss (mL): 10 Tourniquet time (min): 14 Findings: No masses or space-occupying lesions were seen about the ulnar nerve at the elbow or within the carpal tunnel Condition: stable Disposition: PACU Procedure: The patient was taken to the operating room and given a general anesthesia. A tourniquet was inflated to 225 mmHg. A timeout was performed. A 5 cm long incision was made behind the medial epicondyle. Dissection was accomplished bluntly under loupe magnification identifying the ulnar nerve proximally. Utilizing a hemostat the fascia over the nerve was elevated and incised proximally. Dissection was then carried distally behind the medial epicondyle and into the flexor carpi ulnaris musculature. Dissection was stopped with the first muscular branches identified. Elbow was brought through range of motion with the nerve seen to stay reduced behind the medial epicondyle. No formal transition was thought to be warranted. Wounds were irrigated with saline. Skin edges were infiltrated with 10 cc of 1/2% Marcaine solution. A 3 cm long incision was made in line with the fourth ray from the distal edge of the carpal tunnel extending proximally. The subcutaneous fat and palmar fascia was divided with a scalpel blade. Under loupe magnification the ulnar neurovascular bundle was identified distally. A hemostat could be passed under the transverse carpal ligament allowing the distal 25% to be divided. A slotted guide was then passed beneath the transverse carpal ligament and the middle 50% divided. Blunt scissors were then passed over the guide freeing the proximal ligament. The tourniquet was deflated. Hemostasis provided with elec trocautery. Wound edges were infiltrated with 10 cc of 1/2% t Marcaine solution. Skin edges were reapproximated with 3-0 Prolene. Xeroform gauze, sterile 4 x 4's, cast padding and Meil wrap were applied. The patient was taken to the recovery room in a sling in stable condition.
== END 2021-12-08 10:20 | disposition home or self-care (01) ==
PROVIDERS: PCP Family Medicine; Visit Provider Orthopaedic Surgery
PROC: (CPT 64718; principal; 2021-12-08 07:50)
PROC: (CPT 64721; 2021-12-08 07:50)
DX: G56.21 Lesion of ulnar nerve, right upper limb (principal); G56.01 Carpal tunnel syndrome, right upper limb; E11.9 Type 2 diabetes mellitus without complications; E78.5 Hyperlipidemia, unspecified; I10 Essential (primary) hypertension; Z79.4 Long term (current) use of insulin; I25.2 Old myocardial infarction; Z86.16 Personal history of COVID-19; Z79.82 Long term (current) use of aspirin
CPT/HCPCS: 64718; 64721; 36416; 82962; J2704; J3010; J3490; J7030

== ENCOUNTER 2021-12-22 06:27 | Day surgery (SDC) | payer MEDICARE, OTHER, SELFPAY ==
[2021-12-21 12:38] VITALS: BMI 29.0
[2021-12-22] VITALS (10 sets, daily range): BP systolic 95–113; BP diastolic 54–68; PULSE 61–77; RESP 10–20; TEMP 36.1–36.6; O2SAT 94–100
[2021-12-22 07:10] LABS: Glucose Point of Care 182 mg/dL (70-110)
--- NOTE | 2021-12-22 07:11 | ANES.PREANE2 ---
Pre-Anesthetic Assessment Height/Weight: Height 1.68 m Weight 81.647 kg Temp Pulse Resp BP Pulse Ox 97.8 F 71 18 108/59 94 12/22/21 06:41 12/22/21 06:41 12/22/21 06:41 12/22/21 06:41 12/22/21 06:41 Preop Diagnosis: Left cubital tunnel syndrome/carpal tunnel syndrome Operation Date: 12/22/21 07:50 Proposed Procedures p Left Ulnar nerve decompression: 50437,G56.21,G56.01(Left) - Lakhwinder Kendrick MD Familial anesthetic complications: None Was Beta Deedee taken within 24 hours: N/A Was Clonidine taken within 24 hours: N/A Last intake: Intake Last Liquid Date 12/21/21 Last Liquid Time 20:00 Last Solid Date 12/21/21 Last Solid Time 20:00 Social No alcohol and No tobacco Exam alert, oriented x 3, clear to auscultation bilaterally and regular rate & rhythm Airway Mallampati: Class II Dentition: full Pulmonary None reported CV/HEM None reported None reported Hepatic None reported GI None reported Metabolic Diabetes Mellitus, Hyperlipidemia and Thyroid Disease Anesthetic Plan ASA status: 3 Anesthesia: General Risk of > 500 ml blood loss (7ml/kg in children): No Medications/Allergies Home Medications Medication Instructions Recorded Confirmed Last Taken Type aspirin 81 mg tablet,delayed 81 mg PO DAILY@209908/28/19 12/22/21 12/20/21 History release (Adult Low Dose Aspirin) diazepam 10 mg tablet 20 mg PO DAILY PRN tab 08/28/19 12/22/21 12/21/21 History folic acid-vit B6-vit B12 2.5 1 tab PO DAILY@1000 08/28/19 12/22/21 12/21/21 History mg-25 mg-2 mg tablet (Folbic) insulin glargine 100 unit/mL 30 unit SUBCUT DAILY ml 08/28/19 12/22/21 12/21/21 History subcutaneous solution (Lantus U-100 Insulin) lamotrigine 200 mg tablet 200 mg PO BID@1000,2100 08/28/19 12/22/21 12/21/21 History (Lamictal) potassium chloride 20 mEq 20 meq PO DAILY@1000 08/28/19 12/22/21 12/21/21 History tablet,extended release propranolol 80 mg capsule,24 80 mg PO BID@1000,2100 cap 08/28/19 12/22/21 12/22/21 History hr,extended release quetiapine 100 mg tablet (Seroquel) 100 - 300 mg PO DAILY@209908/28/19 12/22/21 12/21/21 History glimepiride 4 mg tablet 4 mg PO BID@1000,2100 08/29/19 12/22/21 12/21/21 History Crutches #1 ea 09/16/19 12/21/21 Unknown Rx crutches #1 ea 09/16/19 12/21/21 Unknown Rx ORTHO WEDGE #1 ea NS 09/30/19 12/21/21 Unknown Rx Ortho Wedge Shoe #1 ea 10/01/19 12/21/21 Unknown Rx Vitamin B-12 1 tab PO DAILY@1000 11/12/20 12/22/21 12/21/21 History ascorbic acid 7.5 mg-vit E 7.5 1 tab PO DAILY@99911/12/20 12/22/21 12/21/21 History unit-biotin 1,250 mcg chewable tablet (Hair,Skin,Nails with Biotin) atorvastatin 20 mg tablet 20 mg PO DAILY@99911/12/20 12/22/21 12/21/21 History hydrocodone 10 mg-acetaminophen 1 tab PO Q8H PRN 11/12/20 12/22/21 11/23/21 History 325 mg tablet levothyroxine 200 mcg tablet 200 mcg PO DAILY@99911/12/20 12/22/21 12/22/21 History multivitamin 1 tab PO DAILY@99911/12/20 12/22/21 12/21/21 History topiramate 100 mg tablet 100 mg PO DAILY@1000 11/12/20 12/22/21 12/21/21 History meloxicam 15 mg tablet 15 mg PO DAILY #30 tab 09/20/21 12/22/21 12/21/21 Rx hydrocodone 5 mg-acetaminophen 325 1 tab PO Q4H #20 tab 12/08/21 12/22/21 12/21/21 Rx mg tablet Allergies Allergy/AdvReac Type Severity Reaction Status Date / Time azithromycin [From Zithromax] Allergy rash Verified 12/21/21 12:35 lisinopril [From Zestril] Allergy ALGY-Swell Verified 12/21/21 12:35 Lip/Tongue/Throat [facility] Anesthesia Medical History Chronic diarrhea CVA (cerebral vascular accident) History of anemia History of anxiety History of aphasia History of bipolar disorder History of depression History of GI bleed History of hypothyroidism History of posttraumatic stress disorder (PTSD) Hx of kidney disease Hx of primary hypertension Hx of type 2 diabetes mellitus Hypothyroidism Suspected COVID-19 virus infection Tension headache, chronic TIA (transient ischemic attack) Surgical History History of back surgery Hx of appendectomy Hx of cholecystectomy Hx of hysterectomy Hx of neck surgery Social History Smoking and tobacco status: never smoked Alcohol intake: current Alcohol intake frequency: holidays/special occasions only Data Anesthesia Cardiac Studies: No Data to Display
[2021-12-22] MEDS: sodium chloride 0.9% 1,000 ML 30 ML IV (07:14)
[2021-12-22 08:09] LABS: Anion Gap 15.8 (5-19); Blood Urea Nitrogen 11 mg/dL (8-23); Calcium 9.1 mg/dL (8.5-10.5); Carbon Dioxide 22 mmol/L (22-29); Chloride 101 mmol/L (98-107); Glomerular Filtration Rate 62.5 mL/min (90-130); Glucose 172 mg/dL (65-115); Osmolality Calculated 283 mOsm/kg (285-295); Potassium 3.8 mmol/L (3.5-5.1); Sodium 135 mmol/L (136-145)
--- NOTE | 2021-12-22 09:32 | W.PM.OPSUD ---
Surgery/Procedure H&P Update DATE OF PROCEDURE: December 22, 2021 DATE H&P PERFORMED: 12/21/21 H&P UPDATE INFORMATION: I have reviewed H&P completed within last 30 days CHANGES TO PREVIOUS DOCUMENTATION: HEAD: Normocephalic/atraumatic. NECK: Soft supple nontender. HEART: Normal heart sounds, regular rhythm. CHEST: Clear to auscultation. ABDOMEN: Soft nontender nondistended. PREOP DIAGNOSIS: Left cubital tunnel syndrome/carpal tunnel syndrome PLANNED PROCEDURE: Operation Date: 12/22/21 07:50 Proposed Procedures p Left Ulnar nerve decompression: 17441,G56.21,G56.01(Left) - Lakhwinder Kendrick MD
--- NOTE | 2021-12-22 09:33 | PM.OP ---
Operative Report Date of procedure: December 22, 2021 Pre-op diagnosis: Preop Diagnosis Left cubital tunnel syndrome/carpal tunnel syndrome Post-op diagnosis: same Procedure done: Left ulnar nerve decompression, right carpal tunnel release Surgeon: Lakhwinder Kendrick Anesthesia: General Estimated blood loss (mL): 10 Tourniquet time (min): 22 Findings: No masses or space-occupying lesions were seen about the ulnar nerve at the elbow or within the carpal tunnel Condition: stable Disposition: PACU Brief History: Ms. 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 She underwent a previous right carpal ulnar nerve decompression and carpal tunnel release and is scheduled today for the same procedure on the left Procedure: The patient was taken to the operating room and given a general anesthesia. A tourniquet was inflated to 225 mmHg. A timeout was performed. A 5 cm long incision was made behind the medial epicondyle. Dissection was accomplished bluntly under loupe magnification identifying the ulnar nerve proximally. Utilizing a hemostat the fascia over the nerve was elevated and incised proximally. Dissection was then carried distally behind the medial epicondyle and into the flexor carpi ulnaris musculature. Dissection was stopped with the first muscular branches identified. Elbow was brought through range of motion with the nerve seen to stay reduced behind the medial epicondyle. No formal transition was thought to be warranted. Wounds were irrigated with saline. Skin edges were infiltrated with 10 cc of 1/2% Marcaine solution. A 3 cm long incision was made in line with the fourth ray from the distal edge of the carpal tunnel extending proximally. The subcutaneous fat and palmar fascia was divided with a scalpel blade. Under loupe magnification the ulnar neurovascular bundle was identified distally. A hemostat could be passed under the transverse carpal ligament allowing the distal 25% to be divided. A slotted guide was then passed beneath the transverse carpal ligament and the middle 50% divided. Blunt scissors were then passed over the guide freeing the proximal ligament. The tourniquet was deflated. Hemostasis provided with electrocautery. Wound edges were infiltrated with 10 cc of 1/2% t Marcaine solution. Skin edges were reapproximated with 3-0 Prolene. Xeroform gauze, sterile 4 x 4's, cast padding and Emil wrap were applied. The patient was taken to the recovery room in a sling in stable condition.
--- NOTE | 2021-12-22 16:34 | ANE.PACU2 ---
Inpatient post-anesthesia follow up: Airway intact: Yes Vital signs: Temperature 97.3 F Pulse Rate 77 Respiratory Rate 18 Blood Pressure 106/67 Pulse Oximetry 97 Oxygen Delivery Me thod Room Air Oxygen Flow Rate 10 Fraction of Inspir ed Oxygen Hydration adequate: Yes Nausea and vomiting: No Pain level: 1 Mental status: Baseline
== END 2021-12-22 11:15 | disposition home or self-care (01) ==
PROVIDERS: Anesthesiology; PCP Family Medicine; Visit Provider Orthopaedic Surgery
PROC: (CPT 64718; principal; 2021-12-22 07:50)
DX: G56.22 Lesion of ulnar nerve, left upper limb (principal); G56.02 Carpal tunnel syndrome, left upper limb; E11.9 Type 2 diabetes mellitus without complications; E78.5 Hyperlipidemia, unspecified; Z79.82 Long term (current) use of aspirin; Z79.4 Long term (current) use of insulin; Z86.73 Personal history of transient ischemic attack (TIA), and cerebral infarction without residual deficits; F41.9 Anxiety disorder, unspecified; F32.9 Major depressive disorder, single episode, unspecified; E03.9 Hypothyroidism, unspecified; I10 Essential (primary) hypertension
CPT/HCPCS: 64718; 64721; 36416; 80048; 82962; J0330; J1100; J2405; J2704; J3010; J3490; J7030

== ENCOUNTER → 2022-01-05 10:27 | Outpatient (BNVA) | payer MEDICARE, OTHER, SELFPAY | PROVIDERS: PCP Family Medicine; Visit Provider Nurse Practitioner Family | DX: Z98.890 Other specified postprocedural states (principal) | CPT/HCPCS: 99024 ==

== ENCOUNTER → 2022-01-18 13:42 | Outpatient (BNVA) | payer MEDICARE, OTHER, SELFPAY | PROVIDERS: PCP Family Medicine; Visit Provider Orthopaedic Surgery | DX: Z98.890 Other specified postprocedural states (principal) | CPT/HCPCS: 99024 ==

== ENCOUNTER → 2022-01-24 11:12 | Outpatient (BNVA) | payer MEDICARE, OTHER, SELFPAY | PROVIDERS: PCP Family Medicine; Visit Provider Family Medicine | DX: E11.9 Type 2 diabetes mellitus without complications (principal); I25.10 Atherosclerotic heart disease of native coronary artery without angina pectoris; E03.9 Hypothyroidism, unspecified | CPT/HCPCS: 80053; 80061; 83036; 83721; 84443 ==

== ENCOUNTER 2022-03-29 10:07 | Outpatient (CLI) | payer MEDICARE, OTHER, SELFPAY ==
--- NOTE | 2022-03-29 10:09 | MM_ITS ---
WS: [id number] Bilateral screening 3D tomosynthesis digital mammogram, 03/29/2022 Clinical Data: SCREENING Comparison: 12/23/2015, 11/06/2014, 12/25/2012, 01/30/2011, 01/21/2010, 01/20/2029, 07/28/2008, 06/26/2008, 1 08/19/2007, 01/29/2007 Findings: The breast parenchymal pattern shows fat replacement. No spiculated masses or clustered calcification s are seen. There are no secondary signs of carcinoma. MM/[place] [id number] Impression: 1. Negative bilateral mammogram unchanged. 2. Recommend annual screening mammograms. BIRADS: 1-Negative FOLLOW UP: 1 Year Follow-up The CAD schedule checker was used.
== END 2022-03-29 10:08 | disposition home or self-care (01) ==
LOC: RAD 10:07
PROVIDERS: PCP Family Medicine; Visit Provider Family Medicine
DX: Z12.31 Encounter for screening mammogram for malignant neoplasm of breast (principal)
CPT/HCPCS: 77063; 77067

== ENCOUNTER 2022-04-08 15:00 | Emergency (ER) | payer MEDICARE, OTHER, SELFPAY ==
[2022-04-08 15:35] VITALS: BP 117/60; PULSE 73; RESP 15
--- NOTE | 2022-04-08 15:41 | W.ED.WEAKNES ---
HPI - Weakness General: Chief complaint: Weakness Stated complaint: WEAKNESS Time Seen by Provider: 04/08/22 15:23 Source: patient Mode of arrival: ambulatory History of Present Illness: 66 yo female presents emergency room complaining of generalized weakness. She woke up and went to get up and she got weak dizzy and fell. She had a hard time getting up and eventually called to the bathroom and did help to get up she was very weak. She denies any pain anywhere show any chest pain or shortness of breath no dysuria urgency or frequency. No specific injury from the fall she denies striking her head. She has been having a lot of diarrhea she is currently on clindamycin for a diabetic foot ulcer on her left great toe. MD Complaint: generalized weakness Onset (ago): hour(s) Duration: constant Location: generalized Severity: moderate Relieving factors: none Exacerbating factors: none Associated symptoms: Denies chest pain, chills, confusion, melena, decreased appetite, diaphoresis, dysuria, easy bruising, fever(s), headache(s), myalgias, nausea, rash, short of breath, syncope or vomiting Review of Systems Const: Denies: fever(s), chills or diaphoresis ENMT: Denies: throat pain, ear or mastoid pain, nasal discharge or nasal congestion Card: Denies: chest pain or syncope Resp: Denies: dyspnea, productive cough or non-productive cough GI: Denies: nausea, vomiting or melena : Denies: dysuria Skin/Breast: Denies: rash or pruritus Neuro: Denies: headache(s) or confusion Isidoro/Lymph: Denies: easy bruising PFSH ED PFSH: Medical History Chronic diarrhea CVA (cerebral vascular accident) Diabetes mellitus History of anemia History of anxiety History of aphasia History of bipolar disorder History of depression History of GI bleed History of hypothyroidism History of posttraumatic stress disorder (PTSD) Hx of kidney disease Hx of primary hypertension Hx of type 2 diabetes mellitus Hyperlipidemia Hypertension Hypothyroid Hypothyroidism Left shoulder pain Suspected COVID-19 virus infection Tension headache, chronic TIA (transient ischemic attack) Surgical History History of back surgery Hx of appendectomy Hx of cholecystectomy Hx of hysterectomy Hx of neck surgery Social History Smoking and tobacco status: never smoked Alcohol intake: current Alcohol intake frequency: holidays/special occasions only Physical Exam Const: GENERAL APPEARANCE: cooperative and comfortable ORIENTATION/CONSCIOUSNESS: Yes awake, Yes oriented to person, Yes oriented to place and Yes oriented to time HENMT: COMMON NORMALS: normocephalic, atraumatic and hearing grossly normal bilaterally HEAD & SCALP: normocephalic and atraumatic Resp: COMMON NORMALS: normal respiratory effort, No retractions, No use of accessory muscles and clear to auscultation bilaterally AUSCULTATION: clear to auscultation bilaterally Cardio: COMMON NORMALS: regular rate, regular rhythm and No murmurs present (Cardio) RATE: regular rate RHYTHM: regular rhythm GI: COMMON NORMALS: Soft to palpation and No hepatosplenomegaly present AUSCULTATION: Yes normoactive bowel sounds PALPATION: Yes Soft to palpation, No Tenderness to palpation present (GI), No Guarding due to palpation present (GI) and Yes No hepatosplenomegaly present Extremity: COMMON NORMALS: normal to inspection, capillary refill normal, no clubbing, cyanosis or edema, no calf tenderness and no pedal edema Neuro: SENSORIUM/ORIENTATION: Yes oriented to person, Yes oriented to place and Yes oriented to time Skin: COMMON NORMALS: no rashes or lesions noted GENERAL SKIN EXAM: no rashes or lesions noted Course Vital Signs: Vital signs: Vital Signs Pulse Rate 75 04/08/22 17:00 Respiratory Rate 16 04/08/22 17:00 Blood Pressure 133/70 04/08/22 17:00 Pulse Oximetry 95 04/08/22 17:00 MDM - Weakness Medical Decision Making Mild cystitis. From her description suspect she had a postural hypotension. Her blood pressure is adequate at this time however I am hesitant to change her medications. We will start her on antibiotics for the cystitis however follow-up with her primary care doctor may need further adjustments depending on if her symptoms recur. Medical Records I reviewed the patient's medical records. Lab Data I reviewed the patient's lab results. : 04/08/22 15:30 04/08/22 15:30 Radiology Impressions Chest X-Ray 04/08/22 15:58 IMPRESSION: No acute findings. Metallic arthroplasty right shoulder good position Laboratory Results WBC 12.0 10^3/uL (4.0-10.0) H 04/08/22 15:30 RBC 4.63 10^6/uL (4.1-5.3) 04/08/22 15:30 Hgb 13.8 g/dL (11.5-15.3) 04/08/22 15:30 Hct 43.2 % (37.0-47.0) 04/08/22 15: MCV 93.3 fl (81-99) 04/08/22 15:30 MCH 29.8 pg (28.0-34.0) 04/08/22 15: MCHC 31.9 g/dL (30.0-36.0) 04/08/22 15: RDW 12.6 % (12.1-15.1) 04/08/22 15:30 Plt Count 280 10^3/cmm (130-400) 04/08/22 15: MPV 9.8 fL (7.4-10.4) 04/08/22 15:30 Neut % (Auto) 63.7 % 04/08/22 15:30 Lymph % (Auto) 21.4 % 04/08/22 15:30 George % (Auto) 9.7 % 04/08/22 15:30 Eos % (Auto) 4.3 % 04/08/22 15:30 Baso % (Auto) 0.6 % 04/08/22 15:30 Neut # (Auto) 7.64 10^3/uL (1.8-7.7) 04/08/22 15:30 Lymph # (Auto) 2.6 10^3/uL (0.8-4.8) 04/08/22 15:30 George # (Auto) 1.2 10^3/uL (0.2-0.9) H 04/08/22 15:30 Eos # (Auto) 0.5 10^3/uL (0.0-0.8) 04/08/22 15:30 Baso # (Auto) 0.1 10^3/uL (0.0-0.1) 04/08/22 15:30 Nucleated RBC % (auto) 0 % 04/08/22:30 Nucleated RBCs # 0.0 /100WBC 04/08/22 15:30 Sodium 134 mmol/L (136-145) L 04/08/22 15:30 Potassium 3.9 mmol/L (3.5-5.1) 04/08/22 15:30 Chloride 94 mmol/L (98-107) L 04/08/22 15:30 Carbon Dioxide 28 mmol/L (22-29) 04/08/22 15:30 Anion Gap 15.9 (5-19) 04/08/22 15:30 BUN 6 mg/dL (8-23) L 04/08/22 15:30 Creatinine 1.2 mg/dL (0.5-0.9) H 04/08/22 15:30 GFR Calculation 44.8 mL/min (90-130) L 04/08/22 15:30 Glucose 107 mg/dL (65-115) 04/08/22 15:30 Calculated Osmolality 276 mOsm/kg (285-295) L 04/08/22 15:30 Lactic Acid 1.7 mmol/L (0.5-2.2) 04/08/22 15:30 Calcium 9.1 mg/dL (8.5-10.5) 04/08/22 15:30 Total Bilirubin 0.3 mg/dL (0.15-1.2) 04/08/22 15:30 AST 49 U/L (0-32) H 04/08/22 15:30 ALT 54 U/L (0-33) H 04/08/22 15:30 Alkaline Phosphatase 118 U/L (35-105) H 04/08/22 15:30 Total Protein 6.9 g/dL (6.6-8.7) 04/08/22 15:30 Albumin 3.9 g/dL (3.5-5.2) 04/08/22 15:30 Globulin 3.0 g/dL (1.3-4.6) 04/08/22 15:30 Urine Color Yellow (Yellow) 04/08/22 16:07 Urine Appearance Clear (CLEAR) 04/08/22 16:07 Urine pH 7.0 (5-7) 04/08/22 16:07 Ur Specific [place] 1.010 (1.005-1.030) 04/08/22 16:07 Urine Protein Negative (Negative) 04/08/22 16:07 Urine Glucose (UA) Negative (Normal) 04/08/22 16:07 Urine Ketones Negative (Negative) 04/08/22 16:07 Urine Blood Negative (Negative) 04/08/22 16:07 Urine Nitrate Negative 04/08/22 16:07 Urine Bilirubin Negative (Negative) 04/08/22 16:07 Urine Urobilinogen 0.2 mg/dL (Negative) 04/08/22 16:07 Ur Leukocyte Esterase Trace (Negative) A 04/08/22 16:07 Urine RBC None /hpf (0-2) 04/08/22 16:07 Urine WBC 5-10 /hpf (0-5) H 04/08/22 16:07 Ur Squamous Epith Cells 0-4 /hpf (0-5) H 04/08/22 16:07 Amorphous Sediment Not Reportable 04/08/22 16:07 Urine Bacteria Trace /hpf (NONE) 04/08/22 16:07 Discharge Plan Discharge Patient Disposition: Home Clinical Impression: Orthostasis, Cystitis Condition: Stable Prescriptions: No Action potassium chloride 20 mEq tablet extended release 20 meq PO DAILY@1000 Folbic 2.5-25-2 mg tablet 1 tab PO DAILY@1000 lamotrigine [Lamictal] 200 mg tablet 200 mg PO BID@1000,2100 aspirin [Adult Low Dose Aspirin] 81 mg tablet,delayed release (DR/EC) 81 mg PO DAILY@2100 quetiapine [Seroquel] 100 mg tablet 100 - 300 mg PO DAILY@2100 diazepam 10 mg tablet 20 mg PO DAILY PRN (Reason: Anxiety) (DME) Crutches Qty: 1 0RF Rx Instructions: As directed meloxicam 15 mg tablet 15 mg PO DAILY MDD 15mg 30 Days Qty: 30 3RF clindamycin HCl 300 mg capsule 300 mg PO QID Qty: 28 0RF gabapentin 100 mg capsule 100 mg PO BID 30 Days Qty: 60 0RF propranolol 80 mg capsule,extended release 24 hr 80 mg PO BID@1000,2100 Qty: 180 3RF (DME) Ortho Wedge Shoe Qty: 1 0RF Rx Instructions: As directed Lantus U-100 Insulin 100 unit/mL solution 40 unit SUBCUT DAILY Qty: 10 12RF Rx Instructions: 40 UNITS IN THE EVENING levothyroxine 200 mcg tablet 200 mcg PO DAILY@1000 Qty: 30 11RF glimepiride 4 mg tablet 4 mg PO BID@1000,2100 multivitamin Tablet 1 tab PO DAILY@1000 atorvastatin 20 mg tablet 20 mg PO DAILY@1000 hydrocodone-acetaminophen 10-325 mg tablet 1 tab PO Q8H PRN (Reason: Pain) topiramate 100 mg tablet 100 mg PO DAILY@1000 Hair, Skin, Nails with Biotin 7.5-7.5-1,250 mg-unit-mcg Tablet,Chewable 1 tab PO DAILY@1000 Vitamin B-12 1 tab PO DAILY@1000 hydrocodone-acetaminophen 5-325 mg tablet 1 tab PO Q4H Qty: 20 0RF Discharge Orders: Discharge ED (Routine); Ordered 04/08/22 Ordered By: Melvin Cabrera Referrals: Carter Yusuf MD [Primary Care Provider] - Discharge Diet: Usual diet Discharge Activity: Increase activity as tolerated Patient Instructions: Opioid Safety, Pain Management Activity Restrictions/Additional Instructions: Your mild cystitis culture is being done we will start you initially on Cipro 250 twice daily for 3 days. Suspect your episode today was from orthostasis when your first urgent blood pressure dropped. Be careful and for standing to lower your blood pressure to covert before walking. If this recurs or persist recheck with your doctor you may need medications adjusted. Coding Level of Care Code ED Support Services Manager for Jaret Deal Exam Detailed
--- NOTE | 2022-04-08 15:48 | ECG_ITS ---
[facility] Test Date: 2022-04-08 Pat Name: Kaylee Ch Department: Room: Gender: Female Reel Tender: : 1955 Requested By: Melvin Barbosa Order Number: [id number] Yasmine MD: Ranjit Nicolas M.D. Measurements Intervals Tat[place] Rate: 71 P: 46 NV: 189 QRS: 81 QRSD: 104 T: 46 QT: 302 QTc: 329 Interpretive Statements SINUS RHYTHM NONSPECIFIC T-WAVE ABNORMALITY Compared to ECG 03/06/2020 23:29:43 T-wave abnormality now present Electronically Signed On 04-09-2022 22:02:53 CDT by Ranjit Nicolas M.D. [id number]
[2022-04-08 15:51] LABS: Basophils # 0.1 10^3/uL (0.0-0.1); Basophils % 0.6 %; Eosinophils # 0.5 10^3/uL (0.0-0.8); Eosinophils % 4.3 %; Hematocrit 43.2 % (37.0-47.0); Hemoglobin 13.8 g/dL (11.5-15.3); Lymphocytes # 2.6 10^3/uL (0.8-4.8); Lymphocytes % 21.4 %; Mean Corpuscular HGB Conc 31.9 g/dL (30.0-36.0); Mean Corpuscular Hemoglobin 29.8 pg (28.0-34.0); Mean Corpuscular Volume 93.3 fl (81-99); Mean Platelet Volume 9.8 fL (7.4-10.4); Monocytes # 1.2 10^3/uL (0.2-0.9); Monocytes % 9.7 %; Neutrophils # 7.64 10^3/uL (1.8-7.7); Neutrophils % 63.7 %; Nucleated Red Blood Cells % 0 %; Platelet Count 280 10^3/cmm (130-400); Red Blood Count 4.63 10^6/uL (4.1-5.3); Red Cell Distribution Width 12.6 % (12.1-15.1)
--- NOTE | 2022-04-08 15:58 | XRR_ITS ---
PROCEDURE INFORMATION: Exam: XR Chest Exam date and time: 04/08/2022 4:14 PM Age: 66 years old Clinical indication: Cough and dyspnea; Additional info: Dyspnea/cough TECHNIQUE: Imaging protocol: Radiologic exam of the chest. Views: 1 view. COMPARISON: CR XR chest 1V portable [id number] 11/12/2020 2:23 PM FINDINGS: Lungs: Unremarkable. No consolidation. Pleural spaces: Unremarkable. No pleural effusion. No pneumothorax. Heart/Mediastinum: Unremarkable. No cardiomegaly. Bones/joints: Metallic arthroplasty is present in the right shoulder in good position. XR/XR chest 1V portable [id number] IMPRESSION: No acute findings. Metallic arthroplasty right shoulder good position
[2022-04-08 16:00] VITALS: BP 123/60
[2022-04-08 16:08] LABS: Lactic Sepsis W/Reflex 1.7 mmol/L (0.5-2.2)
[2022-04-08 16:09] LABS: Alanine Aminotransferase 54 U/L (0-33); Albumin Level 3.9 g/dL (3.5-5.2); Alkaline Phosphatase 118 U/L (35-105); Anion Gap 15.9 (5-19); Aspartate Amino Transferase 49 U/L (0-32); Blood Urea Nitrogen 6 mg/dL (8-23); Calcium 9.1 mg/dL (8.5-10.5); Carbon Dioxide 28 mmol/L (22-29); Chloride 94 mmol/L (98-107); Glomerular Filtration Rate 44.8 mL/min (90-130); Glucose 107 mg/dL (65-115); Osmolality Calculated 276 mOsm/kg (285-295); Potassium 3.9 mmol/L (3.5-5.1); Sodium 134 mmol/L (136-145); Total Bilirubin 0.3 mg/dL (0.15-1.2); Total Protein 6.9 g/dL (6.6-8.7)
[2022-04-08 16:30] VITALS: BP 134/87; PULSE 72; RESP 13; O2SAT 98
[2022-04-08 16:41] LABS: Bilirubin Urine Negative (Negative); Blood Urine Negative (Negative); Glucose Urine UA Negative (Normal); Ketones Urine Negative (Negative); Leukocyte Esterase Urine Trace (Negative); Nitrate Urine Negative; Protein Urine Negative (Negative); Urine Appearance Clear (CLEAR); Urine Color Yellow (Yellow); Urobilinogen Urine 0.2 mg/dL (Negative)
[2022-04-08 16:52] VITALS: BP 120/59; BP 124/65; BP 124/71; PULSE 70; PULSE 74; PULSE 78
[2022-04-08 17:00] VITALS: BP 133/70; PULSE 75; RESP 16; O2SAT 95
[2022-04-08 17:02] LABS: Add Urine Microscopic? YES
[2022-04-08 17:03] LABS: Bacteria Urine TRACE /hpf; Squamous Epithelial Cell Urine 0-4 /hpf (0-5)
[2022-04-08 17:04] LABS: Add Urine Culture? No
== END 2022-04-08 17:30 | disposition home or self-care (01) ==
PROVIDERS: Emergency Provider Family Medicine; PCP Family Medicine
DX: I95.1 Orthostatic hypotension (principal); N30.90 Cystitis, unspecified without hematuria; Z79.84 Long term (current) use of oral hypoglycemic drugs; Z79.82 Long term (current) use of aspirin; Z79.4 Long term (current) use of insulin; Z86.73 Personal history of transient ischemic attack (TIA), and cerebral infarction without residual deficits; E11.9 Type 2 diabetes mellitus without complications; E78.5 Hyperlipidemia, unspecified; I10 Essential (primary) hypertension
CPT/HCPCS: 36415; 71045; 80053; 81001; 83605; 85025; 87040; 93005; 99285; A6446

== ENCOUNTER → 2022-04-11 10:35 | Outpatient (BNVA) | payer MEDICARE, OTHER, SELFPAY | PROVIDERS: PCP Family Medicine; Visit Provider Orthopaedic Surgery | DX: Z47.89 Encounter for other orthopedic aftercare (principal); E11.40 Type 2 diabetes mellitus with diabetic neuropathy, unspecified | CPT/HCPCS: 99213 ==

== ENCOUNTER 2022-04-18 15:18 | Outpatient (CLI) | payer MEDICARE, OTHER, SELFPAY ==
--- NOTE | 2022-04-18 15:40 | XRR_ITS ---
PROCEDURE INFORMATION: Exam: XR Left Shoulder Exam date and time: 04/18/2022 3:42 PM Age: 66 years old Clinical indication: Patient HX: Pain in left shoulder x 3 days focused in the joint. Painful when moving. Pain at a 5. No injury TECHNIQUE: Imaging protocol: Radiologic exam of the Left shoulder. Views: 2 or more views. COMPARISON: CR (CHEST, ) 04/08/2022 4:14 PM FINDINGS: Bones/joints: No acute fracture or dislocation. Joint spaces are well maintained. There is a 0.7 cm calcific density projecting over the axillary recess, likely representing intra-articular body. Old healed fracture deformities of the left ribcage are again noted. Cervical spine fusion hardware seen. Soft tissues: Normal. XR/XR shoulder LT min 2V* [id number] IMPRESSION: 1. No acute injury. 2. Left shoulder joint intra-articular body.
== END 2022-04-18 15:19 | disposition home or self-care (01) ==
LOC: RAD 15:22
PROVIDERS: PCP Family Medicine; Visit Provider Family Medicine
DX: M25.512 Pain in left shoulder (principal)
CPT/HCPCS: 73030

== ENCOUNTER → 2022-04-25 10:13 | Outpatient (BNVA) | payer MEDICARE, OTHER, SELFPAY | PROVIDERS: PCP Family Medicine; Visit Provider Podiatrist Foot & Ankle Surgery | DX: E11.42 Type 2 diabetes mellitus with diabetic polyneuropathy (principal); Z79.4 Long term (current) use of insulin; M20.41 Other hammer toe(s) (acquired), right foot; M20.42 Other hammer toe(s) (acquired), left foot; M20.12 Hallux valgus (acquired), left foot; M21.612 Bunion of left foot; M20.11 Hallux valgus (acquired), right foot; L84 Corns and callosities; M21.611 Bunion of right foot | CPT/HCPCS: 11056; 99204 ==

== ENCOUNTER → 2022-05-03 15:05 | Outpatient (BNVA) | payer MEDICARE, OTHER, SELFPAY | PROVIDERS: PCP Family Medicine; Visit Provider Family Medicine | DX: R19.7 Diarrhea, unspecified (principal) | CPT/HCPCS: 87493; 87506 ==

== ENCOUNTER → 2022-05-05 10:52 | Outpatient (BNVA) | payer MEDICARE, OTHER, SELFPAY | PROVIDERS: PCP Family Medicine; Visit Provider Family Medicine | DX: E03.9 Hypothyroidism, unspecified (principal); E11.9 Type 2 diabetes mellitus without complications; I10 Essential (primary) hypertension | CPT/HCPCS: 80053; 80061; 83036; 83721; 84443 ==

== ENCOUNTER → 2022-05-08 11:11 | Outpatient (BNVA) | payer MEDICARE, OTHER, SELFPAY | PROVIDERS: PCP Family Medicine; Visit Provider Podiatrist Foot & Ankle Surgery | DX: E11.42 Type 2 diabetes mellitus with diabetic polyneuropathy (principal); M20.42 Other hammer toe(s) (acquired), left foot; M20.41 Other hammer toe(s) (acquired), right foot; M20.12 Hallux valgus (acquired), left foot; M21.612 Bunion of left foot; M20.11 Hallux valgus (acquired), right foot; M21.611 Bunion of right foot; L84 Corns and callosities; Z79.4 Long term (current) use of insulin | CPT/HCPCS: 99214 ==

== ENCOUNTER → 2022-05-25 09:48 | Outpatient (BNVA) | payer MEDICARE, OTHER, SELFPAY | PROVIDERS: PCP Family Medicine; Visit Provider Podiatrist Foot & Ankle Surgery | DX: E11.42 Type 2 diabetes mellitus with diabetic polyneuropathy (principal); M20.41 Other hammer toe(s) (acquired), right foot; M20.42 Other hammer toe(s) (acquired), left foot; M20.12 Hallux valgus (acquired), left foot; M21.612 Bunion of left foot; M20.11 Hallux valgus (acquired), right foot; M21.611 Bunion of right foot; L84 Corns and callosities; Z79.4 Long term (current) use of insulin | CPT/HCPCS: 99214 ==

== ENCOUNTER 2022-06-15 06:51 | Outpatient (CLI) | payer MEDICARE, OTHER, SELFPAY ==
--- NOTE | 2022-06-15 07:15 | MR_ITS ---
WS: [id number] MRI LEFT SHOULDER NONCONTRAST TECHNIQUE: Sagittal T2, coronal T1, T2 and proton density imaging. Axial gradient PDE imaging. CLINICAL INFORMATION: shoulder pain COMPARISON: None. FINDINGS: Mild degenerative arthritis AC joint with a small amount of fluid and edema. Mild downsloping of the acromion. Slight impingement on the distal supraspinatus. Tendinopathy distal supraspinatus and infra spinatus. Tiny insertional tear and undersurface tear distal supraspinatus. Normal teres minor. Francoise l subscapularis. Biceps tendon appears intact in the bicipital groove. Intra-articular biceps tendon appears intact. Small amount of fluid in the subcoracoid bursae with a few loose bodies. Degenerative fraying of the glenoid labrum. Intra-articular loose body along the in ferior glenoid in the axillary recess. MR/MR shoulder LT wo con* [id number] IMPRESSION: 1. Tendinopathy distal supraspinatus and infraspinatus with tiny insertional t ear at the supraspinatus with tiny distal undersurface tear. No tendon retracti on. 2. Biceps tendon appears intact within the bicipital groove. 3. Normal biceps labral anchor. 4. Degenerative fraying of the glenoid labrum. 5. Small ossified loose bodies in the subcoracoid bursa and along the inferior glenoid in the axillary recess. 6. Mild degenerative arthritis AC joint with edema and mild downsloping acromi on.
== END 2022-06-15 06:52 | disposition home or self-care (01) ==
LOC: RAD 06:53
PROVIDERS: PCP Family Medicine; Visit Provider Family Medicine
DX: M12.812 Other specific arthropathies, not elsewhere classified, left shoulder (principal); M24.012 Loose body in left shoulder
CPT/HCPCS: 73221

== ENCOUNTER → 2022-06-23 11:28 | Outpatient (BNVA) | payer MEDICARE, OTHER, SELFPAY | PROVIDERS: PCP Family Medicine; Visit Provider Podiatrist Foot & Ankle Surgery | DX: M20.41 Other hammer toe(s) (acquired), right foot (principal); M20.42 Other hammer toe(s) (acquired), left foot; L03.90 Cellulitis, unspecified | CPT/HCPCS: 28010 ==

== ENCOUNTER → 2022-06-28 13:49 | Outpatient (BNVA) | payer MEDICARE, OTHER, SELFPAY | PROVIDERS: PCP Family Medicine; Visit Provider Podiatrist Foot & Ankle Surgery | DX: E11.42 Type 2 diabetes mellitus with diabetic polyneuropathy (principal); M20.41 Other hammer toe(s) (acquired), right foot; M20.42 Other hammer toe(s) (acquired), left foot; M20.12 Hallux valgus (acquired), left foot; M21.612 Bunion of left foot; M20.11 Hallux valgus (acquired), right foot; M21.611 Bunion of right foot; L84 Corns and callosities; L03.90 Cellulitis, unspecified; Z79.4 Long term (current) use of insulin | CPT/HCPCS: 99213 ==

== ENCOUNTER → 2022-07-25 13:08 | Outpatient (BNVA) | payer MEDICARE, OTHER, SELFPAY | PROVIDERS: PCP Family Medicine; Visit Provider Orthopaedic Surgery | DX: M17.11 Unilateral primary osteoarthritis, right knee (principal) | CPT/HCPCS: 20610; 73560; 73565; 99213; J0702; J3490 ==

== ENCOUNTER → 2022-07-26 10:24 | Outpatient (BNVA) | payer MEDICARE, OTHER, SELFPAY | PROVIDERS: PCP Family Medicine; Visit Provider Podiatrist Foot & Ankle Surgery | DX: E11.42 Type 2 diabetes mellitus with diabetic polyneuropathy (principal); M20.41 Other hammer toe(s) (acquired), right foot; M20.42 Other hammer toe(s) (acquired), left foot; M20.12 Hallux valgus (acquired), left foot; M21.612 Bunion of left foot; M20.11 Hallux valgus (acquired), right foot; M21.611 Bunion of right foot; L84 Corns and callosities; Z79.4 Long term (current) use of insulin | CPT/HCPCS: 28011 ==

== ENCOUNTER → 2022-08-04 08:34 | Outpatient (BNVA) | payer MEDICARE, OTHER, SELFPAY | PROVIDERS: PCP Family Medicine; Visit Provider Family Medicine | DX: R19.7 Diarrhea, unspecified (principal); E03.9 Hypothyroidism, unspecified; E78.5 Hyperlipidemia, unspecified; E11.9 Type 2 diabetes mellitus without complications; I10 Essential (primary) hypertension; G56.01 Carpal tunnel syndrome, right upper limb | CPT/HCPCS: 80053; 80061; 83036; 83721; 84443 ==

== ENCOUNTER → 2022-10-02 13:51 | Outpatient (BNVA) | payer MEDICARE, OTHER, SELFPAY | PROVIDERS: PCP Family Medicine; Visit Provider Podiatrist Foot & Ankle Surgery | DX: E11.42 Type 2 diabetes mellitus with diabetic polyneuropathy (principal); L84 Corns and callosities; M20.41 Other hammer toe(s) (acquired), right foot; M20.42 Other hammer toe(s) (acquired), left foot; Z79.4 Long term (current) use of insulin | CPT/HCPCS: 11055; 99213 ==

== ENCOUNTER → 2022-10-25 12:50 | Outpatient (BNVA) | payer MEDICARE, OTHER, SELFPAY | PROVIDERS: PCP Family Medicine; Visit Provider Orthopaedic Surgery | DX: M17.11 Unilateral primary osteoarthritis, right knee (principal) | CPT/HCPCS: 20610; 99212; J0702; J3490 ==

== ENCOUNTER → 2022-10-27 09:51 | Outpatient (BNVA) | payer MEDICARE, OTHER, SELFPAY | PROVIDERS: PCP Family Medicine; Visit Provider Family Medicine | DX: E03.9 Hypothyroidism, unspecified (principal); E78.5 Hyperlipidemia, unspecified; I10 Essential (primary) hypertension; E11.9 Type 2 diabetes mellitus without complications; G56.01 Carpal tunnel syndrome, right upper limb | CPT/HCPCS: 80053; 80061; 83036; 84443 ==

== ENCOUNTER → 2022-11-15 14:40 | Outpatient (BNVA) | payer MEDICARE, OTHER, SELFPAY | PROVIDERS: PCP Family Medicine; Visit Provider Orthopaedic Surgery | DX: M17.11 Unilateral primary osteoarthritis, right knee (principal); Z01.818 Encounter for other preprocedural examination | CPT/HCPCS: 99213 ==

== ENCOUNTER 2022-11-22 07:29 | Outpatient (CLI) | payer MEDICARE, OTHER, SELFPAY ==
--- NOTE | 2022-11-22 08:00 | CT_ITS ---
WS: [id number] CT RIGHT KNEE, NONCONTRAST TECHNIQUE: Noncontrast CT of the RIGHT knee to include the RIGHT hip and ankle. CLINICAL INFORMATION: pre operative planning COMPARISON: None. DLP: 928.[address] scans at [facility] use at least one of these dose optimization techniques: automated e xposure control; mA and/or kV adjustment per patient size (includes targeted exams where dose is matc hed to clinical indication); or iterative reconstruction. FINDINGS: Moderate to advanced degenerative arthritis medial joint compartment with [id number] articulation. Slight subchondral sclerosis. Vascular calcification. Hypertrophic patella. Moderate joint effusion. Hypertrophic changes along the joint line. Soft tissue edema. Normal sigmoid colon. Prior postoperative changes midline lower abdominal and pelvic wall. Prior hyst erectomy. Mild degenerative narrowing both hips. CT/CT knee RT [id number] IMPRESSION: Images obtained for preoperative purposes.
== END 2022-11-22 07:30 | disposition home or self-care (01) ==
PROVIDERS: PCP Family Medicine; Visit Provider Orthopaedic Surgery
DX: M17.11 Unilateral primary osteoarthritis, right knee (principal); E11.621 Type 2 diabetes mellitus with foot ulcer; L97.421 Non-pressure chronic ulcer of left heel and midfoot limited to breakdown of skin; E11.42 Type 2 diabetes mellitus with diabetic polyneuropathy; M20.41 Other hammer toe(s) (acquired), right foot; M20.42 Other hammer toe(s) (acquired), left foot; Z79.4 Long term (current) use of insulin
CPT/HCPCS: 73700; 99214

== ENCOUNTER → 2022-12-13 11:04 | Outpatient (BNVA) | payer MEDICARE, OTHER, SELFPAY | PROVIDERS: PCP Family Medicine; Visit Provider Family Medicine | DX: Z01.818 Encounter for other preprocedural examination (principal) | CPT/HCPCS: 80053; 85025 ==

== ENCOUNTER → 2022-12-26 15:16 | Outpatient (BNVA) | payer MEDICARE, OTHER, SELFPAY | PROVIDERS: PCP Family Medicine; Visit Provider Podiatrist Foot & Ankle Surgery | DX: E11.8 Type 2 diabetes mellitus with unspecified complications (principal); E11.42 Type 2 diabetes mellitus with diabetic polyneuropathy; M20.41 Other hammer toe(s) (acquired), right foot; M20.42 Other hammer toe(s) (acquired), left foot | CPT/HCPCS: 99214 ==

== ENCOUNTER → 2023-01-01 08:06 | Day surgery (SDC) | payer MEDICARE, OTHER, SELFPAY ==
[2022-12-22 09:18] VITALS: BMI 31.4
--- NOTE | 2022-12-22 13:25 | P.ANESASSM_ITS ---
Pre-Anesthetic Assessment Height/Weight: Height 1.68 m Weight 88.451 kg Operation Date: 01/01/23 07:00 Proposed Procedures p right total knee makoplasty/ 93551,M17.11(Right) - Lakhwinder Kendrick MD Social Tobacco and No alcohol Airway Submandibular: within normal limits Cervical ROM: within normal limits Mallampati: Class II CV/HEM Hypertension Metabolic Diabetes Mellitus and Hyperlipidemia [facility] [place] Osteoarthritis/DJD Anesthetic Plan ASA status: 3 Anesthesia: Regional (specify below) (Spinal) Medications/Allergies Home Medications Medication Instructions Recorded Confirmed Last Taken Type aspirin 81 mg tablet,delayed 81 mg PO DAILY@2100 08/28/19 12/22/22 12/22/22 History release (Adult Low Dose Aspirin) diazepam 10 mg tablet 20 mg PO DAILY PRN Anxiety 08/28/19 12/22/22 12/22/22 History folic acid-vit B6-vit B12 2.5 1 tab PO DAILY@1000 08/28/19 12/22/22 12/22/22 History mg-25 mg-2 mg tablet (Folbic) lamotrigine 200 mg tablet 200 mg PO BID@1000,2100 08/28/19 12/22/22 12/22/22 History (Lamictal) Vitamin B-12 1 tab PO DAILY@1000 11/12/20 12/22/22 12/22/22 History ascorbic acid 7.5 mg-vit E 7.5 1 tab PO DAILY@1000 11/12/20 12/22/22 12/22/22 History unit-biotin 1,250 mcg chewable tablet (Hair,Skin,Nails with Biotin) hydrocodone 10 mg-acetaminophen 1 tab PO Q8H PRN Pain 11/12/20 12/22/22 11/23/21 History 325 mg tablet multivitamin 1 tab PO DAILY@1000 11/12/20 12/22/22 12/22/22 History levothyroxine 200 mcg tablet 200 mcg PO DAILY@1000 #30 tabs 04/04/22 12/22/22 12/22/22 Rx propranolol 80 mg capsule,24 80 mg PO BID@1000,2100 #180 caps 04/18/22 12/22/22 12/22/22 Rx hr,extended release Diabetic Shoes with Inserts #1 ea 07/26/22 12/13/22 Unknown Rx atorvastatin 20 mg tablet 20 mg PO DAILY@1000 #30 tabs 08/08/22 12/22/22 12/22/22 Rx insulin syringe-needle U-100 1 mL #100 ea 09/06/22 12/13/22 Unknown Rx 28 gauge x 1/2 (BD Insulin Syringe) quetiapine 100 mg tablet (Seroquel) 400 mg PO DAILY@2100 10/30/22 12/22/22 12/22/22 History ramelteon 8 mg tablet 8 mg PO DAILY 10/30/22 12/22/22 12/21/22 History potassium chloride 20 mEq 20 meq PO DAILY@1000 #30 tabs 12/06/22 12/22/22 12/22/22 Rx tablet,extended release cyclobenzaprine 10 mg tablet 10 mg PO TID PRN muscle spasm #30 12/18/22 12/22/22 12/22/22 Rx tabs gabapentin 100 mg capsule 100 mg PO BID 12/22/22 12/22/22 12/22/22 History glimepiride 4 mg tablet 4 mg PO BID 12/22/22 12/22/22 12/22/22 History insulin glargine 100 unit/mL 50 unit SUBCUT DAILY 12/22/22 12/22/22 12/21/22 History subcutaneous solution (Lantus U-100 Insulin) Allergies Allergy/AdvReac Type Severity Reaction Status Date / Time azithromycin [From Zithromax] Allergy rash Verified 12/13/22 10:39 cetirizine [From Zyrtec] Allergy rash Verified 12/13/22 10:39 lisinopril [From Zestril] Allergy ALGY-Swell Verified 12/13/22 10:39 Lip/Tongue/Throat metformin AdvReac Intermediate diarrhea Verified 12/13/22 10:39 topiramate [From Topamax] AdvReac Intermediate diarrhea Verified 12/13/22 10:39 [facility] Anesthesia Medical History Chronic diarrhea CVA (cerebral vascular accident) Diabetes mellitus History of anemia History of anxiety History of aphasia History of bipolar disorder History of depression History of GI bleed History of hypothyroidism History of posttraumatic stress disorder (PTSD) Hx of kidney disease Hx of primary hypertension Hx of type 2 diabetes mellitus Hyperlipidemia Hypertension Hypothyroid Hypothyroidism Left shoulder pain Suspected COVID-19 virus infection Tension headache, chronic TIA (transient ischemic attack) Surgical History (Updated 12/22/22 @ 09:13 by Clara Mondragon) History of back surgery Hx of appendectomy Hx of cholecystectomy Hx of hysterectomy Hx of neck surgery Social History Smoking and tobacco status: never smoked Alcohol intake: current Alcohol intake frequency: holidays/special occasions only Substance/Drug Use: never Data Anesthesia Cardiac Studies: No Data to Display
== END ==
PROVIDERS: PCP Family Medicine; Visit Provider Orthopaedic Surgery
DX: M17.11 Unilateral primary osteoarthritis, right knee (principal); I10 Essential (primary) hypertension; E11.9 Type 2 diabetes mellitus without complications; E78.5 Hyperlipidemia, unspecified; Z79.82 Long term (current) use of aspirin; Z79.4 Long term (current) use of insulin; Z79.84 Long term (current) use of oral hypoglycemic drugs; E03.9 Hypothyroidism, unspecified
CPT/HCPCS: 99215; J1100; J2795

== ENCOUNTER 2023-01-02 17:32 | Observation (INO) | payer MEDICARE, OTHER, SELFPAY ==
[2023-01-01 16:28] VITALS: BMI 31.4
[2023-01-02] VITALS (13 sets, daily range): BP systolic 98–127; BP diastolic 57–74; PULSE 70–81; RESP 13–24; TEMP 36.1–36.8; O2SAT 93–100
--- NOTE | 2023-01-02 12:44 | P.HPUD_ITS ---
Surgery/Procedure H&P Update DATE OF PROCEDURE: January 02, 2023 DATE H&P PERFORMED: 12/13/22 H&P UPDATE INFORMATION: I have reviewed H&P completed within last 30 days, I have examined patient prior to procedure, No changes to prior documentation and H&P is in [facility] EMR on date indicated PLANNED PROCEDURE: Operation Date: 01/02/23 14:00 Proposed Procedures p right total knee makoplasty/ 66237,M17.11(Right) - Sanaz Garcia MD Related Problem List Diagnoses (1) Osteoarthritis of right knee: Qualifiers: Osteoarthritis type: primary Qualified Code(s): M17.11 - Unilateral primary osteoarthritis, right knee
[2023-01-02 12:59] LABS: Glucose Point of Care 183 mg/dL (70-110)
[2023-01-02] MEDS: sodium chloride 0.9% 1,000 ML 30 ML IV (12:59)
[2023-01-02] MEDS: acetaminophen 1,000 MG/100 ML PIGGYBACK 400 MG IV ×2 (13:00→20:20)
[2023-01-02] MEDS: gabapentin 300 mg Capsule PO (13:01)
[2023-01-02] MEDS: CELEcoxib 200 mg Capsule 400 MG PO (13:01)
[2023-01-02] MEDS: sodium chloride 0.9% 250 mL Bag 50 ML XX (13:05)
--- NOTE | 2023-01-02 13:26 | ANES.PAUD2 ---
Pre-Anesthetic Update Pre-Anesthetic Assessment: Date of Surgery/Procedure: 01/02/23 Proposed Procedure: Operation Date: 01/02/23 14:00 Proposed Procedures p right total knee makoplasty/ [id number],M17.11(Right) - Sanaz Garcia MD Any changes to Pre-Anesthetic Assessment?: No Last Intake: Intake Last Liquid Date 01/01/23 Last Liquid Time 20:30 Last Solid Date 01/01/23 Last Solid Time 20:30 Vitals: Temperature 98.1 F 01/02/23 12:39 Temperature Source Temporal Artery S can 01/02/23 12:39 Pulse Rate 77 01/02/23 12:39 Pulse Rhythm Regular 01/02/23 12:40 Pulse Strength 3+ Normal 01/02/23 12:40 Respiratory Rate 18 01/02/23 12:39 Blood Pressure 127/74 01/02/23 12:39 Blood Pressure Agatha n 91 01/02/23 12:39 Pulse Oximetry 93 01/02/23 12:39 Oxygen Delivery Me thod Room Air 01/02/23 12:40 Exam: Pre-Anes Outpt Exam: alert, oriented x 3, clear to auscultation bilaterally and regular rate & rhythm Cardiac Studies: No Data to Display
--- NOTE | 2023-01-02 13:26 | ANES.PROC ---
Anesthesia Procedures Procedure/Date: 01/02/23 Nerve Block ^: Nerve Block 1: Main Anesthesia: spinal anesthesia block Time Out Performed: Yes Consent: requested by attending/covering physician, from patient, from other, risks and benefits reviewed, patient agrees to proceed and emergency procedure Nerve block location: adductor canal (R) Anesthesia monitors applied: pulse oximetry, EKG, BP cuff and oxygen Nerve block position: supine Anesthetic Used: ropivicaine 0.5% (30 ml) and with decadron (4 mg) Ultrasound used to: recognize landmarks and visualize and ID femerol nerve Nerve Stimulator Used?: No Interscalene/Femoral BLK: 4 stimuplex 21 g needle used for position and inplane approach, visualize local anesthetic spread and no vascular puncture identified Injection: neg aspiration of heme Patient Tolerated Procedure: well Complications: none
[2023-01-02] MEDS: ceFAZolin 2,000 MG in sodium chloride 0.9% (plus) 50 ML 100 MG IV ×2 (13:50→21:30)
[2023-01-02] MEDS: tranexamic acid 1,000 mg/10mL SDV 1000 MG IV (14:00)
[2023-01-02] MEDS: vancomycin 1,000 MG SDV 1000 MG XX (15:05)
[2023-01-02] MEDS: ceFAZolin 1,000 mg SDV 2000 MG IRRIGATION (15:07)
--- NOTE | 2023-01-02 16:58 | P.OP_ITS ---
Operative Report Date of procedure: January 02, 2023 Pre-op diagnosis: Primary osteoarthritis right knee Post-op diagnosis: Primary osteoarthritis right knee Post-op findings: Severe degenerative osteoarthritic change of the right knee with varus deformity and large osteophytes Procedure done: Right total knee arthroplasty with Dinesh guidance Implants: The [place] total knee system with a size 4 triathlon beaded cruciate retaining femur right, a triathlon titanium tibial component size 3 beaded, a triathlon X3 tibial bearing CS insert size 3 X 10 mm and a beaded triathlon titanium asymmetric patella size 32 x 10 mm Specimens removed/disposition: Femoral head, disposed of Pathology: none sent Surgeon: Sanaz Garcia Envelope Addresser: [facility] operating room technicians Anesthesia: MAC (With spinal, ASA 3, and supplemental adductor canal block) Estimated blood loss (mL): 400 IV fluids (mL): 1,100 Urine output (mL): 350 Complications: None Findings: Severe degenerative osteoarthritis of the right knee with large osteophytes and complete loss of cartilage. Condition: stable Disposition: PACU (Then to floor for postoperative rehabilitation and pain management) Brief History: Kaylee Ch is a 67-year-old woman who presented to my office yesterday for further evaluation regarding total knee arthroplasty. The patient has been scheduled for total knee arthroplasty with Dinesh guidance yesterday with Dr. Kendrick, however, as Dr. Kendrick is no longer with the organization, she was transferred to [place]. We visited yesterday and discussed surgery and her options. She wished to proceed. Questions were answered and consents were signed while the patient was in the office..? Patient rates her pain at 5/10 at rest and 9 when walking. She has significant limitations in her activities of daily living. Procedure: The patient was brought to the operating theater, and after undergoing spinal anesthesia with MAC and supplemental adductor block, ASA 3, the right lower extremity was prepped with Dura-Prep and draped in usual fashion following placement of a tourniquet high on the leg. The leg was then draped free.? Tourniquet was not elevated during the case.? A surgical pause was performed, and at the time of the surgical pause, we confirmed the site and side of surgery. Additionally, we confirmed the appropriate and timely administration of preoperative antibiotics, Ancef 2 g and Transexemic acid 1 g.? The availability of equipment was confirmed, and the patient's identity was verbalized as well.? An additional transexemic acid 1 g will be given on the floor as well. Following the surgical pause, an incision was made centering over the patella continuing proximally and distally as necessary to allow access to the knee joint. Dissection continued through skin and soft tissues using a scalpel. Hemostasis was obtained using electrocautery. The skin incision was followed by a median parapatellar arthrotomy. The leg was extended and the patella was able to be displaced laterally without difficulty.? Medial release was initially accomplished to allow placement for the Dinesh array.? Appropriate arrays and markers were placed in appropriate position for use of the Dinesh.? Preoperative planning had been accomplished and was discussed in detail with the [facility] insurance claims representative.? Intraoperative mapping of the femur and tibia was accomplished after the arrays were placed.? Internal markers were also placed.? Once we had accomplished the Dinesh mapping, we began the appropriate resections for placement of the prosthesis.? The plan was for a cruciate retaining right total knee arthroplasty. Once appropriate mapping had been accomplished retraction was established using manual retraction by surgical technicians and also the Dinesh leg positioner and retractors.? The knee was evaluated.? There was significant osteoarthritic change with significant osteophyte formation a significant varus deformity.? The tibia was cut first with the Dinesh. Subsequently, appropriate bone resection of the femur was accomplished using the Dinesh.? The femur was sized to a size 4.? Osteophytes were removed prior to this portion of the procedure.? We had performed a medial release at the beginning of the procedure to allow for placement of the array and to allow for better planning with flexion and extension adjustments per Dinesh programming.? Proximal tibia was evaluated, and it was felt that appropriate size for the tibia was a size 3.? Tray was noted to fit nicely with good coverage.? Rim fit was accomplished with the size 3. A trial reduction was accomplished after osteophytes have been removed as well as the medial and lateral menisci.? We had removed the anterior cruciate ligament at the beginning of the case and preserved the posterior cruciate ligament.? Trial reduction was accomplished with a size 4 femoral cruciate retaining component and a size 3 tibial tray with a size 3 x 9 CS tibial bearing insert.? Alignment was felt to be appropriate.? Trial components were removed after the femur had been drilled.? Prior to removal of the tibial tray which had been pinned in position with appropriate rotation as determined by the Dinesh plan, we broached the tibia.? Subsequently, the 4 drill holes were made for the prosthetic component.? All trial components were removed, and the wound was irrigated.? After the trial reduction, we elected to increase the size of the t ibial weightbearing insert to a size 10. Plans were made for insertion of the prosthetic components.? Prior to this, the patella was manually prepared.? After resection of the articular surface with the jogging system, it was measured and measured a 32 mm patella.? We resected approximately 9 mm of patella.? Patellar height was restored with the patellar component. Once again, the wound was irrigated.? The Tritanium tibia was impacted into position.? The beaded femur was then impacted into position in a cementless fashion. The CS tibial insert was placed prior to placement of the femoral com ponent. The patella was pressed into position with a patellar clamp.? Exparel was injected about the components deep and superficially.? The knee was then copiously irrigated with betadine and saline and suctioned dry.? Further irrigation was accomplished with saline following the Betadine.? Attention was then directed to closure. Closure was accomplished with 0 Vicryl in the fascial tissues.? This was followed by Surgiflo and vancomycin powder.? Following this, a 2-0 Monocryl was used in the subcutaneous tissues, and the skin was closed with skin ela.? Care was taken to assure an excellent subcutaneous as well as skin closure.? A sterile dressing was then placed consisting of Dermabond Prineo, OpSite, sterile soft roll including over the foot, and an Emil wrap. The patient was returned the Recovery Room in a satisfactory condition. X-rays were obtained and reviewed there.? The patient will be discharged to the floor for postoperative rehabilitation and pain management. Related Problem List Diagnoses (1) Osteoarthritis of right knee:
--- NOTE | 2023-01-02 17:11 | XR_ITS ---
WS: [id number] Exam: XR knee RT 1-2V 69671 Date/Time of Exam: 01/02/2023 5:11 PM Reason For Exam: Right total knee Comparison 07/25/2022. Total right knee replacement noted in excellent position. Postoperative changes in the adjacent soft tissues. Anterior surgical skin clips. XR/XR knee RT 1-2V 56989 IMPRESSION: 1. Right total knee replacement in excellent position.
--- NOTE | 2023-01-02 18:00 | ANE.PACU2 ---
Inpatient post-anesthesia follow up: Airway intact: Yes Vital signs: Temperature 98.2 F Pulse Rate 103 Respiratory Rate 18 Blood Pressure 131/79 Pulse Oximetry 97 Oxygen Delivery Me thod Room Air Oxygen Flow Rate 8 Fraction of Inspir ed Oxygen Hydration adequate: Yes Nausea and vomiting: No Pain level: 1 Mental status: Baseline
[2023-01-02] MEDS: sennosides-docusate Tablet 2 TAB PO (20:18)
[2023-01-02] MEDS: chlorhexidine gluconate 0.12% UDC 15 mL MUCOUS MEM (20:18)
[2023-01-02] MEDS: calcium carbonate 500 mg Chew Tablet 1000 MG PO (20:19)
[2023-01-02] MEDS: lamoTRIgine 100 mg Tablet 200 MG PO (20:19)
[2023-01-02] MEDS: quetiapine 300 mg Tablet PO (20:20)
[2023-01-02] MEDS: gabapentin 100 mg Capsule PO (20:20)
[2023-01-02] MEDS: quetiapine 100 mg Tablet PO (20:20)
[2023-01-02] MEDS: iron polysaccharide complex 150 mg Capsule PO (20:20)
[2023-01-02] MEDS: CELEcoxib 200 mg Capsule PO (20:20)
[2023-01-02] MEDS: mupirocin oint 22 gm 1 APPLIC NASAL (22:43)
[2023-01-03] VITALS (9 sets, daily range): BP systolic 102–148; BP diastolic 64–86; PULSE 78–112; RESP 16–24; TEMP 36.6–37.2; O2SAT 92–97
[2023-01-03] MEDS: oxyCODONE 5 mg IR Tab/Cap 10 MG PO ×3 (03:03→14:28)
[2023-01-03 03:48] LABS: Basophils % 0.1 %; Hematocrit 35.4 % (37.0-47.0); Hemoglobin 11.3 g/dL (11.5-15.3); Lymphocytes # 1.8 10^3/uL (0.8-4.8); Lymphocytes % 11.4 %; Mean Corpuscular HGB Conc 31.9 g/dL (30.0-36.0); Mean Corpuscular Hemoglobin 29.1 pg (28.0-34.0); Mean Corpuscular Volume 91.2 fl (81-99); Mean Platelet Volume 9.7 fL (7.4-10.4); Monocytes % 6.8 %; Nucleated Red Blood Cells % 0 %; Platelet Count 249 10^3/cmm (130-400); Red Blood Count 3.88 10^6/uL (4.1-5.3); Red Cell Distribution Width 11.9 % (12.1-15.1); White Blood Count 15.3 10^3/uL (4.0-10.0)
[2023-01-03 04:04] LABS: Anion Gap 15.5 (5-19); Blood Urea Nitrogen 11 mg/dL (8-23); Calcium 8.2 mg/dL (8.5-10.5); Carbon Dioxide 22 mmol/L (22-29); Chloride 99 mmol/L (98-107); Glomerular Filtration Rate 71.3 mL/min (90-130); Glucose 211 mg/dL (65-115); Osmolality Calculated 280 mOsm/kg (285-295); Potassium 4.5 mmol/L (3.5-5.1); Sodium 132 mmol/L (136-145)
[2023-01-03] MEDS: acetaminophen 1,000 MG/100 ML PIGGYBACK 400 MG IV ×2 (05:42→14:29)
[2023-01-03] MEDS: ceFAZolin 2,000 MG in sodium chloride 0.9% (plus) 50 ML 100 MG IV ×2 (05:43→14:29)
--- NOTE | 2023-01-03 08:45 | PC.PHAR ---
pt states she takes care of her own medications-pt states she is still taking vilazodone 10mg daily ext shows last filled 11/22/22 30d/s-pt states she takes fish oil daily but states she hasnt taken for a week-pt states she takes diazepam 10mg hs ext shows last filled 12/27/22 30d/s 10mg bid prn-pt states she is no longer taking quetiapine 400mg daily ext shows last filled 06/23/22 90d/s [facility] refills rx also written 10/30/22-
[2023-01-03] MEDS: cholecalciferol (vitamin D3) 1,000 unit Tablet 1000 UNIT PO (09:24)
[2023-01-03] MEDS: aspirin 325 mg EC Tablet PO (09:24)
[2023-01-03] MEDS: glimepiride 2 mg Tablet 4 MG PO ×2 (09:24→18:26)
[2023-01-03] MEDS: CELEcoxib 200 mg Capsule PO ×2 (09:24→22:03)
[2023-01-03] MEDS: sennosides-docusate Tablet 2 TAB PO ×2 (09:24→18:26)
[2023-01-03] MEDS: atorvastatin 40 mg Tablet 20 MG PO (09:25)
[2023-01-03] MEDS: levothyroxine 200 mcg Tablet PO (09:25)
[2023-01-03] MEDS: insulin glargine 100 units/1 mL 50 UNIT SUBCUT (09:25)
[2023-01-03] MEDS: iron polysaccharide complex 150 mg Capsule PO ×2 (09:25→18:26)
[2023-01-03] MEDS: calcium carbonate 500 mg Chew Tablet 1000 MG PO ×2 (09:25→18:26)
[2023-01-03] MEDS: multivitamin therapeutic Tablet 1 TAB PO (09:25)
[2023-01-03] MEDS: lamoTRIgine 100 mg Tablet 200 MG PO ×2 (09:25→21:02)
[2023-01-03] MEDS: gabapentin 100 mg Capsule PO ×2 (09:32→21:01)
[2023-01-03] MEDS: cyclobenzaprine 10 mg Tablet PO ×2 (12:24→22:05)
[2023-01-03] MEDS: chlorhexidine gluconate 0.12% UDC 15 mL MUCOUS MEM ×3 (14:29→21:02)
--- NOTE | 2023-01-03 14:37 | PM.PN ---
Subjective Subjective: The patient is complaining of significant pain which has increased since her block wore off. She worked with physical therapy, but she was only able to walk a short distance. She is concerned about her independence and going home. She has not had adequate physical therapy at this time to be safe. Medications: Reviewed: Yes Vitals/I&O/Wt Last Vital Signs Temp 98.2 F 01/03/23 11:24 Pulse 95 01/03/23 11:24 Resp 17 01/03/23 14:28 BP 148/81 01/03/23 11:24 Pulse Ox 96 01/03/23 11:24 O2 Del Method Room Air 01/03/23 11:24 O2 Flow Rate 8 01/02/23 20:00 01/02/23 01/03/23 01/03/23 22:59 06:59 14:59 Intake Total 3155 / 3305 960 / 4265 960 / 960 Output Total 1400 / 1400 2200 / 3600 Balance 1755 / 1905 -1240 / 665 960 / 960 Weight last 48 hrs Weight 195 lb Physical Exam Const: COMMON NORMALS: no acute distress, average body habitus, patient oriented x3 and alert GENERAL APPEARANCE: cooperative and comfortable ORIENTATION/CONSCIOUSNESS: Yes awake HENMT: COMMON NORMALS: normocephalic and atraumatic HEAD & SCALP: normocephalic and atraumatic Eye: GENERAL EYE: appearance normal, both eyes and all related structures Chest: COMMONS NORMALS: normal inspection of the chest Resp: COMMON NORMALS: normal respiratory effort EFFORT & INSPECTION: Yes able to speak in complete sentences and Yes symmetric chest movement Extremity: RIGHT LOWER EXTREMITY: Yes knee joint (Emil wrap is removed, under dressing is dry and intact) Right knee: Yes inspection (Minimal ecchymosis), Yes palpation (Minimal to no pain to palpation), Yes neurovascular exam (Intact distally.) and Yes other (No evidence of DVT) Neuro: COMMON NORMALS: patient oriented x3 SENSORIUM/ORIENTATION: Yes alert Psych: COMMON NORMALS: mental status grossly normal APPEARANCE: Yes grossly normal ATTITUDE: Yes calm and Yes engaged ATTENTION/CONCENTRATION: Yes attention grossly intact Skin: COMMON NORMALS: no rashes or lesions noted GENERAL SKIN EXAM: no rashes or lesions noted Urinary Catheter Management: Wyatt: Cath Placed During This Visit: yes, but has since been removed by the nurse Reason for Continuing Indwelling Catheter: Decision to DC Catheter Urinary Catheter Date of Insertion: 01/02/23 Urinary Catheter Time of Insertion: 14:05 Date Urinary Catheter Removed: 01/03/23 Time Urinary Catheter Discontinued: 06:30 Data 01/03/23 03:20 01/03/23 03:20 A&P Assessment and plan (1) Status post total right knee replacement not using cement: Patient underwent total knee arthroplasty uneventfully yesterday. She is seen today, and she is complaining of increasing pain. Routinely, she takes hydrocodone at home, and when originally asked, she stated the oxycodone worked better for her. Today, she states that the hydrocodone actually works better, so we will switch her over and keep her overnight in hopes that her pain is better managed with the hydrocodone. She is neurologically intact and has worked with physical therapy but has not yet independent enough for discharge home. (2) Osteoarthritis of right knee: Qualifiers: Osteoarthritis type: primary Qualified Code(s): M17.11 - Unilateral primary osteoarthritis, right knee Attestations Medical Necessity Statement*: Ongoing care and rehabilitation following right total knee arthroplasty. Patient is not independent enough for transfer to home at this time. Coding Level of Care Code Acute Code for Chg Fwd Diagnoses Status post total right knee replacement not using cement Z96.651 Osteoarthritis of right knee M17.11 Osteoarthritis type: primary
[2023-01-03] MEDS: mupirocin oint 22 gm 1 APPLIC NASAL (18:26)
[2023-01-03] MEDS: quetiapine 100 mg Tablet PO (21:01)
[2023-01-03] MEDS: HYDROcodone-acetaminophen 10-325 mg Tablet 1 TAB PO (21:02)
[2023-01-04] VITALS: BP 174/78; PULSE 116; RESP 17; TEMP 37.1; O2SAT 96
[2023-01-04] MEDS: diazePAM 5 mg Tablet 20 MG PO (00:53)
[2023-01-04] MEDS: HYDROcodone-acetaminophen 10-325 mg Tablet 1 TAB PO ×3 (00:53→10:25)
[2023-01-04 04:00] VITALS: BP 136/84; PULSE 116; RESP 18; TEMP 36.9; O2SAT 93
[2023-01-04 08:16] VITALS: BP 166/68; PULSE 121; RESP 16; TEMP 36.9; O2SAT 97
[2023-01-04] MEDS: iron polysaccharide complex 150 mg Capsule PO (08:28)
[2023-01-04] MEDS: aspirin 325 mg EC Tablet PO (08:28)
[2023-01-04] MEDS: chlorhexidine gluconate 0.12% UDC 15 mL MUCOUS MEM (08:31)
[2023-01-04] MEDS: glimepiride 2 mg Tablet 4 MG PO (08:32)
[2023-01-04] MEDS: gabapentin 100 mg Capsule PO (08:32)
[2023-01-04] MEDS: calcium carbonate 500 mg Chew Tablet 1000 MG PO (08:32)
[2023-01-04] MEDS: cholecalciferol (vitamin D3) 1,000 unit Tablet 1000 UNIT PO (08:32)
[2023-01-04] MEDS: multivitamin therapeutic Tablet 1 TAB PO (08:33)
[2023-01-04] MEDS: insulin glargine 100 units/1 mL 50 UNIT SUBCUT (08:33)
[2023-01-04] MEDS: mupirocin oint 22 gm 1 APPLIC NASAL (08:38)
[2023-01-04] MEDS: sennosides-docusate Tablet 2 TAB PO (08:43)
[2023-01-04] MEDS: levothyroxine 200 mcg Tablet PO (10:24)
[2023-01-04] MEDS: CELEcoxib 200 mg Capsule PO (10:25)
[2023-01-04] MEDS: atorvastatin 40 mg Tablet 20 MG PO (10:25)
[2023-01-04] MEDS: lamoTRIgine 100 mg Tablet 200 MG PO (10:25)
[2023-01-04 11:31] VITALS: BP 157/87; PULSE 122; RESP 18; TEMP 36.7; O2SAT 98
--- NOTE | 2023-01-04 14:00 | P.DS_ITS ---
Discharge Providers Date of Admission: 01/02/23 17:32 Date of Discharge: January 04, 2023 Attending Provider at Admission: Sanaz Garcia MD Attending Provider at Discharge: Sanaz Garcia MD Primary Care Provider: Carter Yusuf MD Diagnoses at Discharge Discharge Diagnosis (1) Status post total right knee replacement not using cement: Status: Acute Permanent problem details: Diagnosis: Primary severe osteoarthritis right knee with varus deformity and large osteophytes Procedure done: Right total knee arthroplasty with Dinesh guidance Implants: The [employer] total knee system with a size 4 triathlon beaded cruciate retaining femur right, a triathlon titanium tibial component size 3 beaded, a triathlon X3 tibial bearing CS insert size 3 X 10 mm and a beaded triathlon titanium asymmetric patella size 32 x 10 mm (2) Osteoarthritis of right knee: Status: Acute Qualifiers: Osteoarthritis type: primary Qualified Code(s): M17.11 - Unilateral primary osteoarthritis, right knee Reason for Visit Reason for Visit: Brief History: Kaylee Ch is a 67-year-old woman who presented to my office yesterday for further evaluation regarding total knee arthroplasty.? The patient has been scheduled for total knee arthroplasty with Dinesh guidance yesterday with Dr. Kendrick, however, as Dr. Kendrick is no longer with the organization, she was transferred to [place].? We visited yesterday and discussed surgery and her options.? She wished to proceed.? Questions were answered and consents were signed while the patient was in the office..? Patient rates her pain at 5/10 at rest and 9 when walking.? She has significant limitations in her activities of daily living. Hospital Course Hospital Course Patient underwent right total knee arthroplasty with Dinesh guidance on January 02, 2023. She was admitted under observation status to the hospital postoperatively. The patient tolerated the procedure well, but on the first postoperative day, she was having difficulty with pain management. She chronically uses hydrocodone at home, and initially, I had placed her on oxycodone and subsequently hydrocodone. The patient did better with hydrocodone on the second postoperative day. She continued to work with physical therapy. She did much better on the second postoperative day and was felt to be stable for discharge to home. Therefore, the patient was scheduled for home health service and discharged home on second postoperative day to follow-up with me in the office as scheduled. Physical Exam Const: COMMON NORMALS: no acute distress, average body habitus, patient oriented x3 and alert GENERAL APPEARANCE: cooperative and comfortable ORIENTATION/CONSCIOUSNESS: Yes awake HENMT: COMMON NORMALS: normocephalic and atraumatic HEAD & SCALP: normocephalic and atraumatic Eye: GENERAL EYE: appearance normal, both eyes and all related structures Chest: COMMONS NORMALS: normal inspection of the chest Resp: COMMON NORMALS: normal respiratory effort EFFORT & INSPECTION: Yes able to speak in complete sentences and Yes symmetric chest movement Extremity: RIGHT LOWER EXTREMITY: Yes knee joint (Large outer Emil wrap and soft roll were removed.) Right knee: Yes inspection (Minimal ecchymosis and swelling.), Yes palpation (Minimal tenderness.), Yes ROM (Able to straight leg raise.) and Yes neurovascular exam (Intact distally with no evidence of DVT.) Neuro: COMMON NORMALS: patient oriented x3 SENSORIUM/ORIENTATION: Yes alert Psych: COMMON NORMALS: mental status grossly normal APPEARANCE: Yes grossly normal ATTITUDE: Yes calm and Yes engaged ATTENTION/CONCENTRATION: Yes attention grossly intact Skin: COMMON NORMALS: no rashes or lesions noted GENERAL SKIN EXAM: no rashes or lesions noted Urinary Catheter Management: Wyatt: Cath Placed During This Visit: yes, but has since been removed by the nurse Reason for Continuing Indwelling Catheter: Decision to DC Catheter Urinary Catheter Date of Insertion: 01/02/23 Urinary Catheter Time of Insertion: 14:05 Date Urinary Catheter Removed: 01/03/23 Time Urinary Catheter Discontinued: 06:30 Discharge Data Studies Completed and Pending Completed Studies During Hospitalization Category Date Time Status XR knee RT 1-2V 42074 Routine Exams 01/02/23 17:11 Completed Radiology Impressions Knee X-Ray 01/02/23 17:11 IMPRESSION: 1. Right total knee replacement in excellent position. Laboratory Results WBC 15.3 10^3/uL (4.0-10.0) H 01/03/23 03:20 RBC 3.88 10^6/uL (4.1-5.3) L 01/03/23 03:20 Hgb 11.3 g/dL (11.5-15.3) L 01/03/23 03:20 Hct 35.4 % (37.0-47.0) L 01/03/23 03:20 MCV 91.2 fl (81-99) 01/03/23 03:20 MCH 29.1 pg (28.0-34.0) 01/03/23 03:20 MCHC 31.9 g/dL (30.0-36.0) 01/03/23 03:20 RDW 11.9 % (12.1-15.1) L 01/03/23 03:20 Plt Count 249 10^3/cmm (130-400) 01/03/23 03:20 MPV 9.7 fL (7.4-10.4) 01/03/23 03:20 Neut % (Auto) 81.0 % 01/03/23 03:20 Lymph % (Auto) 11.4 % 01/03/23 03:20 [place] % (Auto) 6.8 % 01/03/23 03:20 Eos % (Auto) 0.0 % 01/03/23 03:20 Baso % (Auto) 0.1 % 01/03/23 03:20 Neut # (Auto) 12.40 10^3/uL (1.8-7.7) H 01/03/23 03:20 Lymph # (Auto) 1.8 10^3/uL (0.8-4.8) 01/03/23 03:20 [place] # (Auto) 1.0 10^3/uL (0.2-0.9) H 01/03/23 03:20 Eos # (Auto) 0.0 10^3/uL (0.0-0.8) 01/03/23 03:20 Baso # (Auto) 0.0 10^3/uL (0.0-0.1) 01/03/23 03:20 Nucleated RBC % (auto) 0 % 01/03/23 03:20 Nucleated RBCs # 0.0 /100WBC 01/03/23 03:20 Sodium 132 mmol/L (136-145) L 01/03/23 03:20 Potassium 4.5 mmol/L (3.5-5.1) 01/03/23 03:20 Chloride 99 mmol/L (98-107) 01/03/23 03:20 Carbon Dioxide 22 mmol/L (22-29) 01/03/23 03:20 Anion Gap 15.5 (5-19) 01/03/23 03:20 BUN 11 mg/dL (8-23) 01/03/23 03:20 Creatinine 0.8 mg/dL (0.5-0.9) 01/03/23 03:20 GFR Calculation 71.3 mL/min (90-130) L 01/03/23 03:20 Glucose 211 mg/dL (65-115) H 01/03/23 03:20 POC Glucose 183 mg/dL (70-110) H 01/02/23 12:56 Calculated Osmolality 280 mOsm/kg (285-295) L 01/03/23 03:20 Calcium 8.2 mg/dL (8.5-10.5) L 01/03/23 03:20 Vitals Last Vital Signs Temp 98.0 F 01/04/23 11:31 Pulse 122 H 01/04/23 11:31 Resp 18 01/04/23 11:31 BP 157/87 01/04/23 11:31 Pulse Ox 98 01/04/23 11:31 O2 Del Method Room Air 01/04/23 11:31 O2 Flow Rate 8 01/02/23 20:00 Discharge Plan Discharge Patient Disposition: Home Health Service Condition: Stable Prescriptions: New celecoxib 200 mg Capsule 200 mg PO 1XD 30 Days Qty: 30 0RF hydrocodone-acetaminophen 10-325 mg Tablet 1 tab PO Q4H PRN (Reason: Moderate Pain) 7 Days Qty: 30 0RF aspirin 325 mg Tablet,Delayed Release (Dr/Ec) 325 mg PO DAILY 30 Days Qty: 30 0RF Continued Folbic 2.5-25-2 mg tablet 1 tab PO DAILY@1000 lamotrigine [Lamictal] 200 mg tablet 200 mg PO BID@1000,2100 aspirin [Adult Low Dose Aspirin] 81 mg tablet,delayed release (DR/EC) 81 mg PO DAILY@2100 diazepam 10 mg tablet 10 mg PO BEDTIME atorvastatin 20 mg tablet 20 mg PO DAILY@1000 Qty: 30 11RF propranolol 80 mg capsule,extended release 24 hr 80 mg PO BID@1000,2100 Qty: 180 3RF (DME) Diabetic Shoes with Inserts See Rx Instructions .Route .MEDSUPPLY Qty: 1 0RF Rx Instructions: As directed by HOME ramelteon 8 mg tablet 8 mg PO BEDTIME levothyroxine 200 mcg tablet 200 mcg PO DAILY@1000 Qty: 30 11RF (DME) insulin syringe-needle U-100 [BD Insulin Syringe] 1 mL 28 gauge x 1/2 syringe See Rx Instructions .Route Qty: 100 11RF Rx Instructions: As directed potassium chloride 20 mEq tablet extended release 20 meq PO DAILY@1000 Qty: 30 11RF cyclobenzaprine 10 mg tablet 10 mg PO TID PRN (Reason: muscle spasm) Qty: 30 5RF multivitamin Tablet 1 tab PO DAILY@1000 hydrocodone-acetaminophen 10-325 mg tablet 0.5 - 1 tab PO .EVERY 4-6 HOURS MDD 1.5 tab PRN (Reason: Pain) Hair, Skin, Nails with Biotin 7.5-7.5-1,250 mg-unit-mcg Tablet,Chewable 1 tab PO DAILY@1000 omega-3 fatty acids 1,000 mg Capsule 1,000 mg PO DAILY ondansetron HCl 4 mg tablet 4 mg PO Q4H PRN (Reason: Nausea And Vomiting) Vitamin B-12 1,000 mcg Tablet 1,000 mcg PO DAILY duloxetine 60 mg capsule,delayed release(DR/EC) 120 mg PO QAM vilazodone 10 mg tablet 10 mg PO DAILY insulin glargine [Lantus U-100 Insulin] 100 unit/mL solution 50 unit SUBCUT BEDTIME glimepiride 4 mg tablet 4 mg PO BID gabapentin 100 mg capsule 100 mg PO BID Discharge Orders: Discharge Order (Routine); Ordered 01/04/23 Ordered By: Sanaz Garcia Other Ambulatory Orders: DME: Walker (Order) Location: None Selected Ordered By: Sanaz Garcia Referrals: Sanaz Garcia MD [Physician] - 01/17/23 3:00 pm Carter Yusuf MD [Primary Care Provider] - 4-7 days (Please call tomorrow morning to schedule a follow up appointment with your primary care provider.) Discharge Diet: Advance as tolerated and Usual diet Discharge Activity: Increase activity as tolerated, Limit activity as instructed, Use walker/crutches as instructed and As per PT/OT instructions Patient Instructions: Hydrocodone/Acetaminophen (By mouth), Aspirin (By mouth), Celecoxib (By mouth), Precautions after Total Joint Replacement Surgery (GEN), Knee Replacement (GEN), Opioid Safety Activity Restrictions/Additional Instructions: Ice and elevation to right lower extremity. Weightbearing as tolerated. Strengthening, range of motion, and gait training with physical therapy. Discharge Attestations Time Spent in Discharge Care*: greater than 30 min Specific Discharge Activities: educating patient, documenting/other paperwork and evaluating patient/reviewing data Quality Metrics Clinical Quality Measures [ No reported AMI, CVA or VTE this stay] Coding Level of Care Code Acute Code for Chg Fwd Diagnoses Status post total right knee replacement not using cement Z96.651 Osteoarthritis of right knee M17.11 Osteoarthritis type: primary
--- NOTE | 2023-01-04 14:34 | PC.NURSE ---
Tried to call primary care physcial several times and was unable to get an answer before we d/c pt.
== END 2023-01-04 15:10 | disposition home health service (06) ==
LOC: MEDSURG 17:32
PROVIDERS: Admitting Provider Specialist; PCP Family Medicine; Visit Provider Specialist
PROC: 8E0Y0CZ Robotic Assisted Procedure of Lower Extremity, Open Approach (ICD-10-PCS; CPT 27447; principal; 2023-01-02 13:30)
DX: M17.11 Unilateral primary osteoarthritis, right knee (principal); M25.761 Osteophyte, right knee; Z79.891 Long term (current) use of opiate analgesic; Z79.82 Long term (current) use of aspirin
CPT/HCPCS: 20985; 27447; 36415; 36416; 51702; 73560; 80048; 82962; 85025; 96372; 97110; 97116; 97161; 97165; 97530; C1776; C9290; G0378; J0131; J0690; J1100; J1815; J2250; J2370; J2795; J3370; J3490; J7030; J7050

== ENCOUNTER → 2023-01-10 11:12 | Outpatient (BNVA) | payer MEDICARE, OTHER, SELFPAY | PROVIDERS: PCP Family Medicine; Visit Provider Podiatrist Foot & Ankle Surgery | DX: R23.4 Changes in skin texture (principal); E11.42 Type 2 diabetes mellitus with diabetic polyneuropathy; M20.41 Other hammer toe(s) (acquired), right foot; M20.42 Other hammer toe(s) (acquired), left foot; Z79.4 Long term (current) use of insulin | CPT/HCPCS: 99214 ==

== ENCOUNTER → 2023-01-17 14:58 | Outpatient (BNVA) | payer MEDICARE, OTHER, SELFPAY | PROVIDERS: PCP Family Medicine; Visit Provider Specialist | DX: Z96.651 Presence of right artificial knee joint (principal) | CPT/HCPCS: 73560; 73565; 99024 ==

== ENCOUNTER → 2023-02-01 09:14 | Outpatient (BNVA) | payer MEDICARE, OTHER, SELFPAY | PROVIDERS: PCP Family Medicine; Visit Provider Family Medicine | DX: E03.9 Hypothyroidism, unspecified (principal); E78.5 Hyperlipidemia, unspecified; I10 Essential (primary) hypertension; E11.9 Type 2 diabetes mellitus without complications | CPT/HCPCS: 80053; 80061; 83036; 84443 ==

== ENCOUNTER → 2023-02-14 14:04 | Outpatient (BNVA) | payer MEDICARE, OTHER, SELFPAY | PROVIDERS: PCP Family Medicine; Visit Provider Specialist | DX: Z96.651 Presence of right artificial knee joint (principal) | CPT/HCPCS: 73560; 73565; 99024 ==

== ENCOUNTER → 2023-02-26 14:08 | Outpatient (BNVA) | payer MEDICARE, OTHER, SELFPAY | PROVIDERS: PCP Family Medicine; Visit Provider Podiatrist Foot & Ankle Surgery | DX: E11.42 Type 2 diabetes mellitus with diabetic polyneuropathy (principal); M20.41 Other hammer toe(s) (acquired), right foot; M20.42 Other hammer toe(s) (acquired), left foot; Z79.4 Long term (current) use of insulin | CPT/HCPCS: 99213 ==

== ENCOUNTER → 2023-03-16 15:13 | Outpatient (BNVA) | payer MEDICARE, OTHER, SELFPAY | PROVIDERS: PCP Family Medicine; Visit Provider Podiatrist Foot & Ankle Surgery | DX: E11.42 Type 2 diabetes mellitus with diabetic polyneuropathy (principal); M20.41 Other hammer toe(s) (acquired), right foot; M20.42 Other hammer toe(s) (acquired), left foot; L97.512 Non-pressure chronic ulcer of other part of right foot with fat layer exposed; L97.522 Non-pressure chronic ulcer of other part of left foot with fat layer exposed; E11.621 Type 2 diabetes mellitus with foot ulcer; Z79.4 Long term (current) use of insulin | CPT/HCPCS: 99213 ==

== ENCOUNTER → 2023-03-21 14:08 | Outpatient (BNVA) | payer MEDICARE, OTHER, SELFPAY | PROVIDERS: PCP Family Medicine; Visit Provider Thoracic Surgery (Cardiothoracic Vascular Surgery) | DX: E11.52 Type 2 diabetes mellitus with diabetic peripheral angiopathy with gangrene (principal); L97.521 Non-pressure chronic ulcer of other part of left foot limited to breakdown of skin; L97.511 Non-pressure chronic ulcer of other part of right foot limited to breakdown of skin | CPT/HCPCS: 97597; 99213 ==

== ENCOUNTER → 2023-03-28 14:54 | Outpatient (BNVA) | payer MEDICARE, OTHER, SELFPAY | PROVIDERS: PCP Family Medicine; Visit Provider Nurse Practitioner Family | DX: E11.52 Type 2 diabetes mellitus with diabetic peripheral angiopathy with gangrene (principal); L97.521 Non-pressure chronic ulcer of other part of left foot limited to breakdown of skin; L97.511 Non-pressure chronic ulcer of other part of right foot limited to breakdown of skin; Z09 Encounter for follow-up examination after completed treatment for conditions other than malignant neoplasm | CPT/HCPCS: 97597; A6219 ==

== ENCOUNTER → 2023-04-04 15:30 | Outpatient (BNVA) | payer MEDICARE, OTHER, SELFPAY | PROVIDERS: PCP Family Medicine; Visit Provider Thoracic Surgery (Cardiothoracic Vascular Surgery) | DX: E11.52 Type 2 diabetes mellitus with diabetic peripheral angiopathy with gangrene (principal); L97.521 Non-pressure chronic ulcer of other part of left foot limited to breakdown of skin; L97.511 Non-pressure chronic ulcer of other part of right foot limited to breakdown of skin | CPT/HCPCS: 97597 ==

== ENCOUNTER → 2023-04-11 15:13 | Outpatient (BNVA) | payer MEDICARE, OTHER, SELFPAY | PROVIDERS: PCP Family Medicine; Visit Provider Thoracic Surgery (Cardiothoracic Vascular Surgery) | DX: E11.621 Type 2 diabetes mellitus with foot ulcer (principal); L97.511 Non-pressure chronic ulcer of other part of right foot limited to breakdown of skin; L97.521 Non-pressure chronic ulcer of other part of left foot limited to breakdown of skin | CPT/HCPCS: 97597 ==

== ENCOUNTER → 2023-04-18 15:05 | Outpatient (BNVA) | payer MEDICARE, OTHER, SELFPAY | PROVIDERS: PCP Family Medicine; Visit Provider Thoracic Surgery (Cardiothoracic Vascular Surgery) | DX: Z09 Encounter for follow-up examination after completed treatment for conditions other than malignant neoplasm (principal); Z87.2 Personal history of diseases of the skin and subcutaneous tissue | CPT/HCPCS: 99202; A6252 ==

== ENCOUNTER → 2023-04-25 08:15 | Outpatient (BNVA) | payer MEDICARE, OTHER, SELFPAY | PROVIDERS: PCP Family Medicine; Visit Provider Thoracic Surgery (Cardiothoracic Vascular Surgery) | DX: L84 Corns and callosities (principal) | CPT/HCPCS: 99202 ==

== ENCOUNTER 2023-05-02 12:59 | Outpatient (CLI) | payer MEDICARE, OTHER, SELFPAY ==
--- NOTE | 2023-05-02 14:11 | MM_ITS ---
WS: [id number] BILATERAL 3D TOMOSYNTHESIS DIGITAL SCREENING MAMMOGRAPHY WITH CAD CLINICAL INFORMATION: SCREEN HISTORY: Screening mammogram. No current complaints. COMPARISON: 03/29/2022 TECHNIQUE: Bilateral CC and MLO views. FINDINGS: Scattered fibroglandular densities bilaterally. No suspicious focal mass, asymmetry, calcifications, or architectural distortion. No evidence of malignancy. A few incidental punctate calcifications. IMPRESSION: MM/[place] [id number] BI-RADS: 2-Benign FOLLOW UP: 1 Year Follow-up Recommend return to annual screening mammography.
== END 2023-05-02 13:00 | disposition home or self-care (01) ==
LOC: RAD 13:00
PROVIDERS: PCP Family Medicine; Visit Provider Family Medicine
DX: Z12.31 Encounter for screening mammogram for malignant neoplasm of breast (principal)
CPT/HCPCS: 77063; 77067

== ENCOUNTER → 2023-05-28 13:57 | Outpatient (BNVA) | payer MEDICARE, OTHER, SELFPAY | PROVIDERS: PCP Family Medicine; Visit Provider Specialist | DX: Z96.651 Presence of right artificial knee joint (principal); M17.11 Unilateral primary osteoarthritis, right knee | CPT/HCPCS: 73560; 73565; 99213 ==

== ENCOUNTER → 2023-05-29 11:23 | Outpatient (BNVA) | payer MEDICARE, OTHER, SELFPAY | PROVIDERS: PCP Family Medicine; Visit Provider Podiatrist Foot & Ankle Surgery | DX: E11.42 Type 2 diabetes mellitus with diabetic polyneuropathy (principal); L84 Corns and callosities; M20.41 Other hammer toe(s) (acquired), right foot; M20.42 Other hammer toe(s) (acquired), left foot; L97.512 Non-pressure chronic ulcer of other part of right foot with fat layer exposed; L97.522 Non-pressure chronic ulcer of other part of left foot with fat layer exposed; Z79.4 Long term (current) use of insulin | CPT/HCPCS: 11056 ==

== ENCOUNTER → 2023-06-05 10:53 | Outpatient (BNVA) | payer MEDICARE, OTHER, SELFPAY | PROVIDERS: PCP Family Medicine; Visit Provider Family Medicine | DX: E03.9 Hypothyroidism, unspecified (principal); E78.5 Hyperlipidemia, unspecified; I10 Essential (primary) hypertension; E11.9 Type 2 diabetes mellitus without complications | CPT/HCPCS: 80053; 80061; 83036; 84443; 85025 ==

== ENCOUNTER 2023-06-14 13:32 | Outpatient (RCR) | payer MEDICARE, OTHER, SELFPAY | END 2023-07-08 23:59 | disposition home or self-care (01) | LOC: SPT 13:32 | PROVIDERS: PCP Family Medicine; Visit Provider Specialist | DX: Z47.1 Aftercare following joint replacement surgery (principal); Z96.651 Presence of right artificial knee joint | CPT/HCPCS: 97110; 97161 ==

== ENCOUNTER → 2023-06-27 12:50 | Outpatient (BNVA) | payer MEDICARE, OTHER, SELFPAY | PROVIDERS: PCP Family Medicine; Visit Provider Podiatrist Foot & Ankle Surgery | DX: E11.42 Type 2 diabetes mellitus with diabetic polyneuropathy (principal); M20.41 Other hammer toe(s) (acquired), right foot; M20.42 Other hammer toe(s) (acquired), left foot; L84 Corns and callosities; Z79.4 Long term (current) use of insulin | CPT/HCPCS: 11056 ==

== ENCOUNTER → 2023-08-07 13:54 | Outpatient (BNVA) | payer MEDICARE, OTHER, SELFPAY | PROVIDERS: PCP Family Medicine; Visit Provider Podiatrist Foot & Ankle Surgery | DX: E11.42 Type 2 diabetes mellitus with diabetic polyneuropathy (principal); M20.41 Other hammer toe(s) (acquired), right foot; M20.42 Other hammer toe(s) (acquired), left foot; L84 Corns and callosities; Z79.4 Long term (current) use of insulin | CPT/HCPCS: 11056 ==

== ENCOUNTER → 2023-08-20 13:07 | Outpatient (BNVA) | payer MEDICARE, OTHER, SELFPAY | PROVIDERS: PCP Family Medicine; Visit Provider Specialist | DX: M17.11 Unilateral primary osteoarthritis, right knee; Z96.651 Presence of right artificial knee joint; M25.561 Pain in right knee; M54.50 Low back pain, unspecified | CPT/HCPCS: 72110; 73560; 73565; 99214 ==

== ENCOUNTER 2023-09-05 07:47 | Outpatient (CLI) | payer MEDICARE, OTHER, SELFPAY ==
--- NOTE | 2023-09-05 08:00 | CT_ITS ---
WS: [id number] CT THORACIC SPINE HISTORY: compression fracture TECHNIQUE: Contiguous 2.0 mm axial images are reviewed to thoracic spine. Images are reformatted in s agittal and coronal planes. All CT scans at [facility] use at least one of these dose optimiz ation techniques: automated exposure control; mA and/or kV adjustment per patient size (includes targ eted exams where dose is matched to clinical indication); or iterative reconstruction. DLP: 899.21 mGy.cm COMPARISON: 10/23/2017, lumbar spine radiograph 08/20/2023 Mild straightening of the normal thoracic kyphosis. Acute T12 compression fracture is identified. The re is retropulsion by 2 mm involving the posterior superior endplate of T12 without significant encro achment upon the thecal sac. There is air in the T11-12 disc and also along the superior endplate of T12. Vertebral body compression fracture is estimated at approximately 10 to 15%. No fracture extends into the posterior elements. The remaining vertebral bodies are normally aligned. There is very slig ht anterior wedging of T3 and T4 which appears chronic. No disc protrusions or significant central or foraminal stenosis. Very slight retropulsion posterior superior endplate of T12 without a high-grade stenosis. Paravertebral soft tissues are normal. IMPRESSION: 1. Acute T12 compression fracture by 10-15% with retropulsion of the superior endplate by 2 mm. 2. No significant cord contact or compression. 3. The remaining vertebral bodies are normally aligned. 4. Very minimal anterior chronic compressions of T3 and T4.
== END 2023-09-05 07:48 | disposition home or self-care (01) ==
LOC: RAD 07:48
PROVIDERS: PCP Family Medicine; Visit Provider Family Medicine
DX: S22.080A Wedge compression fracture of T11-T12 vertebra, initial encounter for closed fracture (principal); X58.XXXA Exposure to other specified factors, initial encounter
CPT/HCPCS: 72128

== ENCOUNTER → 2023-09-18 13:54 | Outpatient (BNVA) | payer MEDICARE, OTHER, SELFPAY | PROVIDERS: PCP Family Medicine; Visit Provider Podiatrist Foot & Ankle Surgery | DX: L84 Corns and callosities (principal); E11.42 Type 2 diabetes mellitus with diabetic polyneuropathy; M20.41 Other hammer toe(s) (acquired), right foot; M20.42 Other hammer toe(s) (acquired), left foot; Z79.4 Long term (current) use of insulin | CPT/HCPCS: 11056 ==

== ENCOUNTER → 2023-09-24 10:47 | Outpatient (BNVA) | payer MEDICARE, OTHER, SELFPAY | PROVIDERS: PCP Family Medicine; Visit Provider Family Medicine | DX: E11.9 Type 2 diabetes mellitus without complications (principal); I10 Essential (primary) hypertension; E78.5 Hyperlipidemia, unspecified; E03.9 Hypothyroidism, unspecified | CPT/HCPCS: 80053; 80061; 83036; 84443; 85025 ==

== ENCOUNTER → 2023-11-14 11:22 | Outpatient (BNVA) | payer MEDICARE, OTHER, SELFPAY | PROVIDERS: PCP Family Medicine; Visit Provider Podiatrist Foot & Ankle Surgery | DX: E11.42 Type 2 diabetes mellitus with diabetic polyneuropathy (principal); M20.41 Other hammer toe(s) (acquired), right foot; M20.42 Other hammer toe(s) (acquired), left foot; Z79.4 Long term (current) use of insulin | CPT/HCPCS: 99213 ==

== ENCOUNTER → 2023-12-05 14:10 | Outpatient (BNVA) | payer MEDICARE, OTHER, SELFPAY | PROVIDERS: PCP Family Medicine; Visit Provider Podiatrist Foot & Ankle Surgery | DX: E11.42 Type 2 diabetes mellitus with diabetic polyneuropathy (principal); M20.41 Other hammer toe(s) (acquired), right foot; M20.42 Other hammer toe(s) (acquired), left foot; L84 Corns and callosities | CPT/HCPCS: 11056; 99213 ==

== ENCOUNTER 2023-12-27 06:00 | Outpatient (RCR) | payer MEDICARE, OTHER, SELFPAY | END 2024-01-06 23:59 | disposition home or self-care (01) | LOC: SPT 06:00 | PROVIDERS: PCP Family Medicine; Visit Provider Family Medicine | DX: R53.1 Weakness (principal); R29.6 Repeated falls | CPT/HCPCS: 97161 ==

== ENCOUNTER → 2024-01-16 13:00 | Outpatient (BNVA) | payer MEDICARE, OTHER, SELFPAY | PROVIDERS: PCP Family Medicine; Visit Provider Podiatrist Foot & Ankle Surgery | DX: E11.42 Type 2 diabetes mellitus with diabetic polyneuropathy (principal); M20.41 Other hammer toe(s) (acquired), right foot; M20.42 Other hammer toe(s) (acquired), left foot; L84 Corns and callosities; Z79.4 Long term (current) use of insulin | CPT/HCPCS: 99213 ==

== ENCOUNTER → 2024-01-18 11:53 | Outpatient (BNVA) | payer MEDICARE, OTHER, SELFPAY | PROVIDERS: PCP Family Medicine; Visit Provider Family Medicine | DX: I10 Essential (primary) hypertension (principal); E78.5 Hyperlipidemia, unspecified; E11.9 Type 2 diabetes mellitus without complications; E03.9 Hypothyroidism, unspecified | CPT/HCPCS: 80053; 80061; 82607; 83036; 83721; 85025 ==

== ENCOUNTER → 2024-02-18 12:46 | Outpatient (BNVA) | payer MEDICARE, OTHER, SELFPAY | PROVIDERS: PCP Family Medicine; Visit Provider Nurse Practitioner | DX: Z96.651 Presence of right artificial knee joint (principal) | CPT/HCPCS: 73560; 73565; 99213 ==

== ENCOUNTER → 2024-02-25 12:47 | Outpatient (BNVA) | payer MEDICARE, OTHER, SELFPAY | PROVIDERS: PCP Family Medicine; Visit Provider Podiatrist Foot & Ankle Surgery | DX: E11.42 Type 2 diabetes mellitus with diabetic polyneuropathy (principal); M20.41 Other hammer toe(s) (acquired), right foot; M20.42 Other hammer toe(s) (acquired), left foot; L84 Corns and callosities | CPT/HCPCS: 99213 ==

== ENCOUNTER → 2024-04-16 07:53 | Outpatient (BNVA) | payer MEDICARE, OTHER, SELFPAY | PROVIDERS: PCP Family Medicine; Visit Provider Podiatrist Foot & Ankle Surgery | DX: E11.42 Type 2 diabetes mellitus with diabetic polyneuropathy (principal); M20.41 Other hammer toe(s) (acquired), right foot; M20.42 Other hammer toe(s) (acquired), left foot; L84 Corns and callosities; L97.512 Non-pressure chronic ulcer of other part of right foot with fat layer exposed; E11.621 Type 2 diabetes mellitus with foot ulcer; Z79.4 Long term (current) use of insulin | CPT/HCPCS: 11042 ==

== ENCOUNTER → 2024-04-28 09:30 | Outpatient (BNVA) | payer MEDICARE, OTHER, SELFPAY | PROVIDERS: PCP Family Medicine; Visit Provider Podiatrist Foot & Ankle Surgery | DX: E11.42 Type 2 diabetes mellitus with diabetic polyneuropathy (principal); M20.41 Other hammer toe(s) (acquired), right foot; M20.42 Other hammer toe(s) (acquired), left foot; L84 Corns and callosities; L97.512 Non-pressure chronic ulcer of other part of right foot with fat layer exposed; Z79.4 Long term (current) use of insulin | CPT/HCPCS: 99213 ==

== ENCOUNTER → 2024-05-02 11:57 | Outpatient (BNVA) | payer MEDICARE, OTHER, SELFPAY | PROVIDERS: PCP Family Medicine; Visit Provider Family Medicine | DX: G56.01 Carpal tunnel syndrome, right upper limb (principal); E03.9 Hypothyroidism, unspecified; E11.9 Type 2 diabetes mellitus without complications; E78.5 Hyperlipidemia, unspecified; I10 Essential (primary) hypertension | CPT/HCPCS: 80053; 80061; 83036; 83721; 84443 ==

== ENCOUNTER → 2024-05-08 09:30 | Outpatient (BNVA) | payer MEDICARE, OTHER, SELFPAY | PROVIDERS: PCP Family Medicine; Visit Provider Podiatrist Foot & Ankle Surgery | DX: E11.42 Type 2 diabetes mellitus with diabetic polyneuropathy (principal); M20.41 Other hammer toe(s) (acquired), right foot; M20.42 Other hammer toe(s) (acquired), left foot; L84 Corns and callosities; E11.621 Type 2 diabetes mellitus with foot ulcer; L97.512 Non-pressure chronic ulcer of other part of right foot with fat layer exposed | CPT/HCPCS: 99213 ==

== ENCOUNTER → 2024-05-22 09:03 | Outpatient (BNVA) | payer MEDICARE, OTHER, SELFPAY | PROVIDERS: PCP Family Medicine; Visit Provider Podiatrist Foot & Ankle Surgery | DX: E11.42 Type 2 diabetes mellitus with diabetic polyneuropathy (principal); M20.41 Other hammer toe(s) (acquired), right foot; M20.42 Other hammer toe(s) (acquired), left foot; L84 Corns and callosities; L97.512 Non-pressure chronic ulcer of other part of right foot with fat layer exposed; M20.11 Hallux valgus (acquired), right foot; E11.621 Type 2 diabetes mellitus with foot ulcer; Z79.4 Long term (current) use of insulin | CPT/HCPCS: 99213 ==

== ENCOUNTER 2024-05-22 09:59 | Outpatient (CLI) | payer MEDICARE, OTHER, SELFPAY | END 2024-05-22 10:00 | disposition home or self-care (01) | LOC: SPT 09:59 | PROVIDERS: PCP Family Medicine; Visit Provider Podiatrist Foot & Ankle Surgery | DX: Z46.89 Encounter for fitting and adjustment of other specified devices (principal); L97.512 Non-pressure chronic ulcer of other part of right foot with fat layer exposed | CPT/HCPCS: 97760; L4361 ==

== ENCOUNTER → 2024-05-29 11:11 | Outpatient (BNVA) | payer MEDICARE, OTHER, SELFPAY | PROVIDERS: PCP Family Medicine; Visit Provider Podiatrist Foot & Ankle Surgery | DX: E11.42 Type 2 diabetes mellitus with diabetic polyneuropathy (principal); M20.41 Other hammer toe(s) (acquired), right foot; M20.42 Other hammer toe(s) (acquired), left foot; L84 Corns and callosities; L97.512 Non-pressure chronic ulcer of other part of right foot with fat layer exposed; M20.11 Hallux valgus (acquired), right foot; E11.621 Type 2 diabetes mellitus with foot ulcer; Z79.4 Long term (current) use of insulin | CPT/HCPCS: 99213 ==

== ENCOUNTER → 2024-06-04 11:15 | Outpatient (BNVA) | payer OTHER, MEDICARE, SELFPAY | PROVIDERS: PCP Family Medicine; Visit Provider Podiatrist Foot & Ankle Surgery | DX: L97.512 Non-pressure chronic ulcer of other part of right foot with fat layer exposed (principal); E11.42 Type 2 diabetes mellitus with diabetic polyneuropathy; M20.41 Other hammer toe(s) (acquired), right foot; M20.42 Other hammer toe(s) (acquired), left foot; L84 Corns and callosities; M20.11 Hallux valgus (acquired), right foot; E11.621 Type 2 diabetes mellitus with foot ulcer; Z79.4 Long term (current) use of insulin | CPT/HCPCS: 99213 ==

== ENCOUNTER → 2024-06-18 14:50 | Outpatient (BNVA) | payer OTHER, MEDICARE, SELFPAY | PROVIDERS: PCP Family Medicine; Visit Provider Podiatrist Foot & Ankle Surgery | DX: M20.11 Hallux valgus (acquired), right foot (principal); E11.42 Type 2 diabetes mellitus with diabetic polyneuropathy; M20.41 Other hammer toe(s) (acquired), right foot; M20.42 Other hammer toe(s) (acquired), left foot; L84 Corns and callosities; M24.574 Contracture, right foot; Z79.4 Long term (current) use of insulin | CPT/HCPCS: 73630; 99214 ==

== ENCOUNTER 2024-07-08 08:23 | Outpatient (CLI) | payer MEDICARE, OTHER, SELFPAY ==
--- NOTE | 2024-07-08 08:45 | USCV_ITS ---
Jing Kaylee Age: 68 Gender: F : 1955 Exam Date: 07/08/2024 09:21 Ordering Phys: Jr Ahuja DPM Technologist: [place] [facility] [place]ication: surgical planning RIGHT LEFT Brachial 131.00 mmHg Brachial 117.00 mmHg Pressure (mmHg) Waveform Pressure (mmHg) Waveform 143.00 High Thigh 138.00 N/A Above Knee N/A 144.00 Below Knee 139.00 141.00 OIL LEASE BROKER 134.00 119.00 DPA 117.00 1.08 Ankle/Brachial Index 1.02 135.00 Pre-Exercise Toe Pressure 127.00 1.03 Pre-Exercise Toe/Brachial Index 0.97 FINDINGS Resting PHILOMENA 1.08 on the right and 1.02 on the left. Resting TBI of 1.03 on the right and 0.97 on the left CONCLUSIONS Normal resting ABIs and TBIs bilaterally No evidence of any significant arterial obstruction, based on the above findings. Dr Barrie Urbina MD [facility] (Electronically Signed) Final Date: 10 July 2024 07:13 S
== END 2024-07-08 08:24 | disposition home or self-care (01) ==
LOC: RAD 08:24
PROVIDERS: PCP Family Medicine; Visit Provider Podiatrist Foot & Ankle Surgery
DX: L97.512 Non-pressure chronic ulcer of other part of right foot with fat layer exposed (principal); E11.42 Type 2 diabetes mellitus with diabetic polyneuropathy
CPT/HCPCS: 93923

== ENCOUNTER 2024-07-18 06:38 | Day surgery (SDC) | payer MEDICARE, OTHER, SELFPAY ==
[2024-07-18] VITALS (8 sets, daily range): BP systolic 90–136; BP diastolic 63–76; PULSE 61–84; RESP 8–18; TEMP 36.2–36.6; O2SAT 92–96; BMI 32.3
[2024-07-18] MEDS: sodium chloride 0.9% 1,000 ML 30 ML IV (07:15)
[2024-07-18 07:21] LABS: Glucose Point of Care 151 mg/dL (70-110)
--- NOTE | 2024-07-18 08:13 | P.ANESASSM_ITS ---
Pre-Anesthetic Assessment Height/Weight: Height 5 ft 6 in Weight 200 lb Temp Pulse Resp BP Pulse Ox O2 Del Method 97.9 F 84 17 126/76 92 Room Air 07/18/24 07:02 07/18/24 07:02 07/18/24 07:02 07/18/24 07:02 07/18/24 07:02 07/18/24 07:02 Preop Diagnosis: Right tendon contracture, hammertoe and hallux valgus Operation Date: 07/18/24 08:30 Proposed Procedures p Hallux Interphalangeal Joint Fusion(Right) - GLENN Arroyo Tendon Transfer Foot Hallucis Extensor Longus Tendon Transfer and Right third flexor digitorum longus to flexor digitorum brevis tendon transfer(Right) - GLENN Arroyo Right third hammertoe correction(Right) - Jr Ahuja DPM Was Beta Deedee taken within 24 hours: Yes Was Clonidine taken within 24 hours: N/A Last intake: Intake Last Liquid Date 07/17/24 Last Liquid Time 18:30 Last Solid Date 07/17/24 Last Solid Time 18:00 Exam alert, oriented x 3, clear to auscultation bilaterally and regular rate & rhythm Airway Submandibular: within normal limits Cervical ROM: within normal limits Mallampati: Class II Dentition: full Comments: Comments: Multiple missing teeth, denies any loose Anesthetic Plan ASA status: 3 Anesthesia: MAC Other: Patient states that she has gotten nauseous in the past with anesthesia NPO since yesterday History of type 2 diabetes on insulin. Preop BS 151. Patient also takes semaglutide. Last taken 07/09/2024 Hypothyroidism on Synthroid Hypertension on propranolol Labs 05/02/2024 reviewed and acceptable for procedure EKG sinus rhythm Plan for MAC anesthesia with local via surgeon Medications/Allergies Home Medications Medication Instructions Recorded Confirmed Last Taken Type diazepam 10 mg tablet 10 mg PO BEDTIME 08/28/19 07/18/24 07/17/24 History ascorbic acid 7.5 mg-vit E 7.5 1 tab PO DAILY@1000 11/12/20 07/18/24 07/17/24 History unit-biotin 1,250 mcg chewable tablet (Hair,Skin,Nails with Biotin) hydrocodone 10 mg-acetaminophen 0.5 - 1 tab PO .EVERY 4-6 HOURS 11/12/20 07/18/2407/17/25 History 325 mg tablet PRN Pain multivitamin 1 tab PO DAILY@1000 11/12/20 07/18/24 07/17/24 History Diabetic Shoes with Inserts #1 ea 07/26/22 07/17/24 Unknown Rx insulin syringe-needle U-100 1 mL #100 ea 09/06/22 07/17/24 Unknown Rx 28 gauge x 1/2 (BD Insulin Syringe) ramelteon 8 mg tablet 8 mg PO BEDTIME 10/30/22 07/18/24 07/17/24 History cyanocobalamin (vitamin B-12) 1,000 mcg PO DAILY 01/03/23 07/18/24 07/17/24 History 1,000 mcg tablet (Vitamin B-12) Diabetic shoes #1 ea 04/11/23 07/17/24 Unknown Rx blood-glucose meter #1 ea 06/12/23 07/17/24 Unknown Rx blood sugar diagnostic (Blood #200 ea 06/15/23 07/17/24 Unknown Rx Glucose Test strips) blood-glucose meter (Accu-Chek #1 ea 06/27/23 07/17/24 Unknown Rx Guide Glucose Meter) blood sugar diagnostic (Accu-Chek #100 ea 07/26/23 07/17/24 Unknown Rx Guide test strips) lancets (Accu-Chek Softclix #200 ea 09/14/23 07/17/24 Unknown Rx Lancets) insulin syringe-needle U-100 1 mL #100 ea 10/02/23 07/17/24 Unknown Rx 31 gauge x 5/16 (TRUEplus Insulin) fluoxetine 20 mg capsule (Prozac) 20 mg PO DAILY 01/24/24 07/18/24 07/17/24 History insulin glargine 100 unit/mL 20 unit (0.2 mL) SUBCUT BEDTIME 05/06/24 07/18/24 07/17/24 Rx subcutaneous solution (Lantus #20 mL 20 U-100 Insulin) semaglutide 0.25 mg or 0.5 mg (2 0.25 mg (0.368 mL) SUBCUT .weekly 05/06/24 07/18/24 07/09/24 Rx mg/3 mL) subcutaneous pen injector #3 mL (ServiceBench) cam boot to right #1 ea 05/22/24 07/17/24 Unknown Rx doxycycline hyclate 100 mg capsule 100 mg PO BID 10 days #20 caps 05/22/24 07/18/24 07/17/24 Rx mupirocin 2 % topical ointment 1 applic topical BID 2 weeks #22 06/04/24 07/18/24 07/17/24 Rx grams aspirin 325 mg tablet 325 mg PO DAILY 07/18/24 07/18/24 07/09/24 History atorvastatin 20 mg tablet 20 mg PO DAILY 07/18/24 07/18/24 07/17/24 History cyclobenzaprine 10 mg tablet 10 mg PO TID PRN Muscle Spasm 07/18/24 07/18/24 07/17/24 History gabapentin 100 mg capsule 100 mg PO BID 07/18/24 07/18/24 07/17/24 History glimepiride 4 mg tablet 4 mg PO BID 07/18/24 07/18/24 07/17/24 History levothyroxine 200 mcg tablet 200 mcg PO DAILY 07/18/24 07/18/24 07/18/24 History meloxicam 15 mg tablet 15 mg PO DAILY 07/18/24 07/18/24 07/17/24 History potassium chloride 20 mEq 20 meq PO DAILY 07/18/24 07/18/24 07/17/24 History tablet,extended release propranolol 80 mg capsule,24 80 mg PO BID 07/18/24 07/18/24 07/17/24 History hr,extended release Allergies Allergy/AdvReac Type Severity Reaction Status Date / Time azithromycin [From Zithromax] Allergy rash Verified 07/18/24 06:55 cetirizine [From Zyrtec] Allergy rash Verified 07/18/24 06:55 lisinopril [From Zestril] Allergy ALGY-Swell Verified 07/18/24 06:55 Lip/Tongue/Throat metformin AdvReac Intermediate diarrhea Verified 07/18/24 06:55 topiramate [From Topamax] AdvReac Intermediate diarrhea Verified 07/18/24 06:55 Current Medications Generic Name Dose Route Start Last Admin Trade Name Freq PRN Reason Stop Dose Admin Sodium Chloride 1,000 mls @ 30 mls/hr 07/18/24 06:45 07/18/24 07:15 Sodium Chloride 0.9% IV 07/19/24 06:44 30 mls/hr .Q24H JACQUELINE Administration PFSH Anesthesia Medical History 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 Left shoulder pain Hypothyroid Hyperlipidemia Hypertension Diabetes mellitus Suspected COVID-19 virus infection Hypothyroidism Chronic diarrhea Tension headache, chronic CVA (cerebral vascular accident) TIA (transient ischemic attack) History of aphasia Hx of kidney disease Hx of type 2 diabetes mellitus History of anemia History of GI bleed History of hypothyroidism Hx of primary hypertension History of bipolar disorder History of anxiety History of depression History of posttraumatic stress disorder (PTSD) Surgical History Hx of appendectomy History of back surgery Hx of cholecystectomy Hx of hysterectomy Hx of neck surgery Social History Smoking and tobacco/nicotine status: never used tobacco/nicotine Alcohol intake: current Alcohol intake frequency: holidays/special occasions only Substance/Drug Use: never Data Anesthesia Cardiac Studies: No Data to Display
--- NOTE | 2024-07-18 08:19 | W.PM.OPSUD ---
Surgery/Procedure H&P Update DATE OF PROCEDURE: July 18, 2024 DATE H&P PERFORMED: 06/18/24 H&P UPDATE INFORMATION: I have reviewed H&P completed within last 30 days, I have examined patient prior to procedure, No changes to prior documentation and H&P is in [facility] on date indicated PREOP DIAGNOSIS: Right tendon contracture, hammertoe and hallux valgus PLANNED PROCEDURE: Operation Date: 07/18/24 08:30 Proposed Procedures p Hallux Interphalangeal Joint Fusion(Right) - Jr Ahuja DPM s Tendon Transfer Foot Hallucis Extensor Longus Tendon Transfer and Right third flexor digitorum longus to flexor digitorum brevis tendon transfer(Right) - GLENN Arroyo Right third hammertoe correction(Right) - Jr Ahuja DPM
[2024-07-18] MEDS: lidocaine 2% INJ 20 mL 15 ML INJECTION (08:30)
[2024-07-18] MEDS: ceFAZolin 2,000 mg SDV 2000 MG IVP (08:40)
[2024-07-18] MEDS: BUPivacaine 0.5% INJ 30 mL 15 ML INJECTION (08:45)
--- NOTE | 2024-07-18 09:43 | P.BOP_ITS ---
Date of Procedure: 09/21/23 Surgeon: Jr Ahuja DPM Chemist Biological(s): Fabricio Procedure(s) performed: Right hallux interphalangeal joint fusion. Right extensor hallucis longus tendon transfer. Right third hammertoe correction with tendon transfer. Findings of the procedure(s): None Estimated blood loss: 2 mL Specimen(s) removed: No specimens Post-operative diagnosis: Right hallux valgus, right foot tendon contracture, right third hammertoe
--- NOTE | 2024-07-18 09:44 | PM.OP ---
Operative Report Date of procedure: July 18, 2024 Pre-op diagnosis: Diabetic peripheral neuropathy associated with type 2 diabetes mellitus E11.42 Hammertoe, bilateral M20.41; M20.42 Pre-ulcerative calluses L84 Hallux valgus (acquired), right foot M20.11 Contracture, right foot M24.574 Post-op diagnosis: Diabetic peripheral neuropathy associated with type 2 diabetes mellitus E11.42 Hammertoe, bilateral M20.41; M20.42 Pre-ulcerative calluses L84 Hallux valgus (acquired), right foot M20.11 Contracture, right foot M24.574 Procedure done: 1) right hallux interphalangeal joint fusion. CPT code 42626 2) right extensor hallucis longus tendon transfer. 86163 3) right third hammertoe correction. CPT code 96998 4) right third flexor digitorum longus to flexor digitorum brevis tendon transfer. CPT code 80337 Implants: [place] 3.0 mm titanium Vacation Sales Advisor bone anchor. [place] 4.0 mm headed screw partially-threaded and cannulated, [place] hammer tube implant at right third toe proximal interphalangeal joint 2.75 mm in diameter with 10 degree angle 4-0 Vicryl, 4-0 nylon Specimens removed/disposition: No specimens Pathology: No pathology Surgeon: Jr Ahuja DPM Data Examination Clerk: Fabricio Estimated blood loss: 2 Approximately 39 minutes IV fluids: See intraoperative documentation Urine output: No urine output Complications: No complications Brief History: X-ray right foot 3 views taken in clinic. Per my interpretation radiographic evaluation below Hallux noted to be an abducted position. Tibial sesamoid position: 3 1 ? 2 IM angle is 12 degrees Hallux abductus angle is 20 degrees Metatarsal adductus angle is 2 degrees. Sieberg index of 2 mm. Distal hallux interphalangeal joint articular set angle 40 degrees with apex of the valgus deformity of the right great toe distal to the hallux interphalangeal joint Hammertoe deformity of digits of right 2, 3, 4, 5 Assessment and Plan 68-year-old female with a history of diabetes mellitus, presenting with hallux valgus and related complications, including a wound on the right great toe. The presence of a foot ulcer in a diabetic patient modestly increases the complexity of her condition. Radiographic imaging confirmed the extent of the hallux valgus deformity. The elevation in hemoglobin A1c requires careful consideration in her surgical planning. Conservative approaches have provided limited benefit, thus surgical correction is required to address the right great toe deformity and prevent further ulceration. 1. Hallux Valgus Deformity We will proceed with surgical intervention to correct the right hallux valgus. This involves tendon transfer anchored with a bone anchor. The procedure is intended to realign the toe, alleviating angular deviation. The patient was informed of the surgical procedure, expected outcomes, and potential risks, including infection and failure to resolve symptoms. 2. Diabetes Mellitus Ongoing management of diabetes is essential to optimize healing, particularly postoperative. The patient will be advised to monitor her blood glucose levels carefully. 3. Diabetic Foot Ulcer Surgical intervention will also address the current foot ulcer simultaneously to prevent further complications. The plan includes wound debridement and possible application of wound care products post-surgery. The patient presents with a severe hallux valgus deformity on her right great toe, complicated by her elevated hemoglobin A1c and foot ulcer. The decision to pursue surgical correction takes into account the significant deformity and ulcer's chronic status, which are unlikely to improve with conservative measures alone. The procedure was selected for its potential to resolve the mechanical issues causing ulceration. The patient's diabetic status necessitates heightened postoperative monitoring to ensure optimal recovery and healing. The patient has been made aware of the risks and benefits, and there is consensus to proceed once insurance authorization is secured. I reviewed at length with the patient, the risks, potential complications, benefits, alternatives, expectations, and typical outcomes associated with the surgery. The risks and potential complications were explained in detail, including but not limited to infection, wound dehiscence or soft tissue complications, bleeding and hematoma, chronic edema, neuritis or nerve damage producing numbness or chronic pain, CRPS, failure to relieve pain or worsening pain, thick / painful / unsightly scar, limited motion / stiffness, malposition, delayed union, malunion, or nonunion, fracture, reaction to implants, anesthetic complications, venous thromboembolism, and deformity recurrence. I discussed the notion of no regrets with the patient as it pertains to complications and outcomes. The patient seemed to understand the nature of the proposed care and required convalescence. They asked appropriate questions, answered to their satisfaction. They are aware no guarantees can be made as to a satisfactory outcome and they understand there may be other possible unforeseen complications or outcomes not listed here that will be treated accordingly if they arise. There were no written or implied guarantees given to the patient. They gave informed consent to proceed. Planning on extensor hallucis longus tendon transfer and hallux interphalangeal joint arthrodesis all right foot. Also right third hammertoe correction. Procedure: Under mild sedation the patient was brought to the operating room and remained on the gurney in supine position. A timeout was performed. Anesthesia was then administered by the anesthesia service. Local anesthesia injected by myself consisting of 20 cc of 0.5% Marcaine plain and 20 cc of Exparel in a Lanza block fashion and third ray block fashion to the right foot. Well-padded pneumatic tourniquet applied to the right ankle. The right lower extremity was scrubbed, prepped and draped utilizing normal aseptic technique. Right foot was exanguinated with a Esmarch bandage and tourniquet inflated to 250 mmHg. Attention was directed to the right hallux noted to be in a valgus fixed position that was nonreducible, a linear longitudinal incision was performed at the dorsal aspect of the right hallux encompassing the hallux interphalangeal joint through skin with #15 blade with dissection carried down through subcutaneous tissue to the layer periosteum and joint capsule to hallux interphalangeal joint, the extensor digitorum longus tendon was transected at this level and the joint was freed from its soft tissue and capsular attachments. The head of the proximal phalanx and base of the distal phalanx were transected of the articular surface with a sagittal saw and fenestrating drill bit utilized to perforate the arthrodesis site at the hallux interphalangeal joint. The hallux was held in rectus and fixated utilizing standard AO technique with a [place] 4.0 mm headed partially-threaded cannulated screw with excellent bony apposition and compression noted. The incision was irrigated with copious amounts of sterile skin solution and the extensor tendon was reapproximated with 4-0 Vicryl, periosteal and capsular structures also reapproximated with 4-0 Vicryl, subcutaneous tissue reapproximated 4-0 Vicryl and skin with 4-0 nylon. Attention was directed to the dorsal medial aspect of the right first metatarsal neck where a linear incision was performed with a #15 blade through skin and dissection carried down to the extensor hallucis longus tendon utilizing a combination of sharp and blunt technique. Care was taken to retract and preserve neurovascular and tendinous structures. All bleeders were ligated and cauterized as necessary. The extensor hallucis longus tendon was transferred to the neck of the right first metatarsal utilizing a [place] 3.0 mm titanium Vacation [employer] Advisor bone anchor with excellent bony apposition and a successful tendon transfer observed intraoperatively. The incision was irrigated skin solution and subcutaneous tissue reapproximated with 4-0 Vicryl and skin with 4-0 nylon. Attention was directed to the right forefoot where deep tendon contracture was appreciated with sagittal plane dominant deformity of the right third toe as well as arthrosis of the right third proximal interphalangeal joint. A linear longitudinal incision made over the dorsal aspect of the right third toe through skin with a #15 blade with dissection carried down to extensor tendon which was transected at the level of the proximal interphalangeal joint and dissected proximally and temporary by a mosquito hemostat. The head and base of the right second proximal interphalangeal joint were resected with a oscillating saw pad about the field. Sharp dissection carried down to the flexor digitorum longus tendon which was transected at its most distal margin and split longitudinally and then transferred both medially laterally and hemisections fashion and transferred to the dorsal aspect of the right third toe which was then held in rectus and tendon was reapproximated utilizing 4-0 nylon helping to reduce the sagittal plane deformity at the right third toe and to help prevent cock-up toe deformity. The incision was irrigated with saline solution. Attention was directed at arthrodesis site of the proximal interphalangeal joint right third toe where subchondral drilling was performed at the proximal phalanx head and intermediate phalanx base. Next utilizing standard AO technique a [place] 2 mm headed partially-threaded screw was integrated and then retrograded to remain intramedullary within the distal, intermediate and proximal phalanx of the right third toe holding this rectus and allowing excellent compression at the proximal interphalangeal joint arthrodesis site excellent placement of hardware and rectus right third toe was appreciated both intraoperatively under direct visualization as well as with AP, oblique and lateral views noted to be excellent in all 3 planes with the third metatarsal plantar joint not being violated. Smooth range of motion appreciated at the right third metatarsal phalangeal joint. The incision was then flushed with copious amounts of sterile saline solution and the extensor tendon was reapproximated utilizing 4-0 Vicryl. Subcutaneous tissue closed with 4-0 Vicryl and skin with 4-0 nylon. The incision was then dressed with Adaptic, sterile 4 x 4's, Kerlix and Emil wrap followed by application of a cam boot. Tourniquet was deflated and a prompt hyperemic response was noted to the distal digits of the right foot. Patient tolerated the procedure and anesthesia well and was transferred to the PACU with vital signs stable and vascular status intact. Following a period of postoperative monitoring he will be discharged home was given at home care instructions and scheduled follow-up he is also given my cell phone number to contact me directly with any postoperative questions or concerns
--- NOTE | 2024-07-18 10:40 | ANE.PACU2 ---
Inpatient post-anesthesia follow up: Airway intact: Yes Vital signs: Temperature 97.4 F Pulse Rate 61 Respiratory Rate 17 Blood Pressure 136/72 Pulse Oximetry 96 Oxygen Delivery Me thod Room Air Oxygen Flow Rate Fraction of Inspir ed Oxygen Hydration adequate: Yes Nausea and vomiting: No Pain level: 1 Mental status: Baseline
--- NOTE | 2024-07-18 12:03 | XR_ITS ---
WS: [id number] C-ARM RADIOGRAPHS RIGHT FOOT; 1 IMAGES HISTORY: LAUREN KAPLAN COMPARISON: Radiograph 06/18/2024 Intraoperative fixation during screw placement at the first IP joint. XR/XR foot RT 2V [id number] IMPRESSION: Intraoperative imaging during first IP joint fusion.
== END 2024-07-18 10:40 | disposition home or self-care (01) ==
PROVIDERS: PCP Family Medicine; Visit Provider Podiatrist Foot & Ankle Surgery
PROC: (CPT 28755; principal; 2024-07-18 08:20)
PROC: (CPT 27690; 2024-07-18 08:20)
PROC: (CPT 28285; 2024-07-18 08:20)
DX: M24.574 Contracture, right foot (principal); M20.11 Hallux valgus (acquired), right foot; L84 Corns and callosities; M20.41 Other hammer toe(s) (acquired), right foot; M20.42 Other hammer toe(s) (acquired), left foot; E11.42 Type 2 diabetes mellitus with diabetic polyneuropathy; Z79.4 Long term (current) use of insulin; E03.9 Hypothyroidism, unspecified; I10 Essential (primary) hypertension; E78.5 Hyperlipidemia, unspecified; Z86.73 Personal history of transient ischemic attack (TIA), and cerebral infarction without residual deficits
CPT/HCPCS: 27690; 27692; 28285; 28755; 36416; 73620; 76000; 82962; C1713; J0690; J2704; J3010; J3490; J7030

== ENCOUNTER → 2024-07-31 14:13 | Outpatient (BNVA) | payer MEDICARE, OTHER, SELFPAY | PROVIDERS: PCP Family Medicine; Visit Provider Podiatrist Foot & Ankle Surgery | DX: Z98.890 Other specified postprocedural states (principal) | CPT/HCPCS: 73630; 99024 ==

== ENCOUNTER → 2024-08-28 13:44 | Outpatient (BNVA) | payer MEDICARE, OTHER, SELFPAY | PROVIDERS: PCP Family Medicine; Visit Provider Podiatrist Foot & Ankle Surgery | DX: Z98.890 Other specified postprocedural states (principal) | CPT/HCPCS: 73630; 99024 ==

== ENCOUNTER → 2024-09-25 13:36 | Outpatient (BNVA) | payer MEDICARE, OTHER, SELFPAY | PROVIDERS: PCP Family Medicine; Visit Provider Podiatrist Foot & Ankle Surgery | DX: M24.575 Contracture, left foot (principal); M20.12 Hallux valgus (acquired), left foot; M79.672 Pain in left foot | CPT/HCPCS: 73630; 99214 ==

== ENCOUNTER 2024-10-31 06:29 | Day surgery (SDC) | payer MEDICARE, OTHER, SELFPAY ==
[2024-10-31] VITALS (7 sets, daily range): BP systolic 107–136; BP diastolic 60–81; PULSE 58–69; RESP 16–18; TEMP 36.3–36.8; O2SAT 94–100; BMI 31.4
--- NOTE | 2024-10-31 07:21 | W.PM.OPSUD ---
Surgery/Procedure H&P Update DATE OF PROCEDURE: October 31, 2024 DATE H&P PERFORMED: 10/31/24 H&P UPDATE INFORMATION: I have reviewed H&P completed within last 30 days, I have examined patient prior to procedure, No changes to prior documentation and Risks and benefits of the procedure reviewed PREOP DIAGNOSIS: Left hallux valgus. PLANNED PROCEDURE: Operation Date: 10/31/24 08:00 Proposed Procedures p Hallux Interphalangeal Joint Fusion(Left) - Jr Ahuja DPM s Hallucis Extensor Longus Tendon Transfer(Left) - Jr Ahuja DPM
--- NOTE | 2024-10-31 07:22 | PM.OPSURHP ---
Providers/Chief Complaint Primary Care Provider: Carter Yusuf MD Chief Complaint: M24.575 History of Present Illness 68-year-old female presenting with concerns about the healing process following recent surgery. Six weeks ago, she had surgery to rectify a pressure sore that affected the area of the surgical site. Recent assessments have shown that the primary surgical goal of addressing the significant sore has been successful, as the pressure has been alleviated and the sore appears to be healing. However, there remains a concern about incomplete healing under a screw placed during the procedure. While this area has not fully resolved, it is not causing noticeable discomfort to the patient. The progress has been positive enough to reconsider the necessity of additional screws, previously contemplated to provide better structural support. The patient reports satisfaction with the current state, suggesting that the remaining issue is not causing significant distress or functional limitations. Review of Systems General: Reports: 10 or more systems reviewed and unremarkable except in HPI and below Const: Denies: fever(s) or chills Eyes: Denies: change in vision Card: Denies: chest pain or palpitations Resp: Denies: dyspnea or productive cough GI: Denies: abdominal pain, nausea or vomiting : Denies: flank pain Musc: Reports: extremity pain, joint pain, joint stiffness, limited range of motion and deformity Skin/Breast: Reports: skin tenderness; Denies: rash Neuro: Reports: difficulty walking; Denies: numbness in extremities, sensory changes or frequent falls Psych: Denies: suicidal ideation Isidoro/Lymph: Denies: easy bruising Medications/Allergies Home Medications ?Medication ?Instructions ?Recorded ?Confirmed ?Last Taken ?Type diazepam 10 mg tablet 10 mg PO BEDTIME 08/28/19 10/30/24 10/30/24 History ascorbic acid 7.5 mg-vit E 7.5 1 tab PO DAILY@1000 11/12/20 10/30/24 10/30/24 History unit-biotin 1,250 mcg chewable tablet (Hair,Skin,Nails with Biotin) hydrocodone 10 mg-acetaminophen 0.5 - 1 tab PO .EVERY 4-6 HOURS 11/12/20 10/31/24 10/29/24 History 325 mg tablet PRN Pain multivitamin 1 tab PO DAILY@1000 11/12/20 10/30/24 10/30/24 History Diabetic Shoes with Inserts #1 ea 07/26/22 09/25/24 Unknown Rx insulin syringe-needle U-100 1 mL #100 ea 09/06/22 09/25/24 Unknown Rx 28 gauge x 1/2 (BD Insulin Syringe) ramelteon 8 mg tablet 8 mg PO BEDTIME 10/30/22 10/30/24 10/30/24 History cyanocobalamin (vitamin B-12) 1,000 mcg PO DAILY 01/03/23 10/30/24 10/30/24 History 1,000 mcg tablet (Vitamin B-12) Diabetic shoes #1 ea 04/11/23 09/25/24 Unknown Rx blood-glucose meter #1 ea 06/12/23 09/25/24 Unknown Rx blood sugar diagnostic (Blood #200 ea 06/15/23 09/25/24 Unknown Rx Glucose Test strips) blood-glucose meter (Accu-Chek #1 ea 06/27/23 09/25/24 Unknown Rx Guide Glucose Meter) blood sugar diagnostic (Accu-Chek #100 ea 07/26/23 09/25/24 Unknown Rx Guide test strips) lancets (Accu-Chek Softclix #200 ea 09/14/23 09/25/24 Unknown Rx Lancets) insulin syringe-needle U-100 1 mL #100 ea 10/02/23 09/25/24 Unknown Rx 31 gauge x 5/16 (TRUEplus Insulin) insulin glargine 100 unit/mL 20 unit (0.2 mL) SUBCUT BEDTIME 05/06/24 10/30/24 10/30/24 Rx subcutaneous solution (Lantus #20 mL U-100 Insulin) semaglutide 0.25 mg or 0.5 mg (2 0.25 mg (0.368 mL) SUBCUT .weekly 05/06/24 10/30/24 10/22/24 Rx mg/3 mL) subcutaneous pen injector #3 mL ([employer]) cam boot to right #1 ea 05/22/24 09/25/24 Unknown Rx mupirocin 2 % topical ointment 1 applic topical BID 2 weeks #22 06/04/24 10/31/24 07/17/24 Rx grams aspirin 325 mg tablet 325 mg PO DAILY 07/18/24 10/30/24 10/30/24 History atorvastatin 20 mg tablet 20 mg PO DAILY 07/18/24 10/30/24 10/30/24 History cyclobenzaprine 10 mg tablet 10 mg PO TID PRN Muscle Spasm 07/18/24 10/30/24 10/30/24 History gabapentin 100 mg capsule 100 mg PO BID 07/18/24 10/30/24 10/30/24 History glimepiride 4 mg tablet 4 mg PO BID 07/18/24 10/30/24 10/30/24 History levothyroxine 200 mcg tablet 200 mcg PO DAILY 07/18/24 10/30/24 10/30/24 History meloxicam 15 mg tablet 15 mg PO DAILY 07/18/24 10/30/24 10/30/24 History potassium chloride 20 mEq 20 meq PO DAILY 07/18/24 10/30/24 10/30/24 History tablet,extended release propranolol 80 mg capsule,24 80 mg PO DAILY 10/30/24 10/30/24 10/31/24 History hr,extended release Allergies Allergy/AdvReac Type Severity Reaction Status Date / Time azithromycin (From Zithromax) Allergy rash Verified 10/31/24 07:01 cetirizine (From Zyrtec) Allergy rash Verified 10/31/24 07:01 lisinopril (From Zestril) Allergy ALGY-Swell Verified 10/31/24 07:01 Lip/Tongue/Throat metformin AdvReac Intermediate diarrhea Verified 10/31/24 07:01 topiramate (From Topamax) AdvReac Intermediate diarrhea Verified 10/31/24 07:01 PFSH PFSH: Medical History 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 Left shoulder pain Hypothyroid Hyperlipidemia Hypertension Diabetes mellitus Suspected COVID-19 virus infection Hypothyroidism Chronic diarrhea Tension headache, chronic CVA (cerebral vascular accident) TIA (transient ischemic attack) History of aphasia Hx of kidney disease Hx of type 2 diabetes mellitus History of anemia History of GI bleed History of hypothyroidism Hx of primary hypertension History of bipolar disorder History of anxiety History of depression History of posttraumatic stress disorder (PTSD) Surgical History Hx of appendectomy History of back surgery Hx of cholecystectomy Hx of hysterectomy Hx of neck surgery Social History Smoking and tobacco/nicotine status: never used tobacco/nicotine Alcohol intake: current Alcohol intake frequency: holidays/special occasions only Substance/Drug Use: never Vital Signs Vitals Signs: Last Vital Signs Temp 97.6 F 10/31/24 06:47 Pulse 69 10/31/24 06:47 Resp 18 10/31/24 06:47 BP 131/81 10/31/24 06:47 Pulse Ox 94 10/31/24 06:47 O2 Del Method Room Air 10/31/24 06:48 Weight: Weight last 48 hrs Weight 195 lb Physical Exam Narrative: EXAM NARRATIVE: Patient is alert and oriented ?3 and in no acute distress. The following is a focused right lower extremity exam. VASCULAR: Dorsalis pedis and posterior tibial arteries palpable. Capillary refill time less than 3 seconds to the distal hallux bilaterally. Calf is supple and nontender proximally and distally. Mild edema at the operative site consistent with postoperative course. NEUROLOGICAL: Protective sensation diminished. DERMATOLOGICAL: Well-healed cicatrix right foot. Hemorrhagic hyperkeratotic lesion at the medial aspect of the left hallux interphalangeal joint. MUSCULOSKELETAL: Left hallux malleus with tendon contracture of the left foot and hallux valgus left foot with tenderness at hallux interphalangeal joint. Muscle strength +5 in all 3 planes right foot and ankle pain-free without guarding. CARDIOVASCULAR: S1, S2, normal rate, normal rhythm. Dorsalis pedis and posterior tibial arteries palpable. LUNGS: Clear to auscltation, no use of acessory muscles, no crackles or wheezes. A&P Assessment and plan (1) Contracture, left foot: (2) Hallux valgus (acquired), left foot: (3) Left foot pain: Plan X-ray right foot 3 views show stable interval of healing at right foot. Intact hardware right foot. Subjectively patient denies any pain or swelling right foot she remains healed and no reulceration of the great toe. She is happy with this. Would like to discuss surgical correction of her left great toe Left foot hallux valgus and tendon contracture of the left forefoot involving the medial column, has mechanical overload and hemorrhagic hyperkeratotic lesion at the medial aspect of the hallux interphalangeal joint wishing to do surgical correction as a means of surgical offloading to prevent wounds infections and and even amputation. Recommended tendon transfer left forefoot and left hallux interphalangeal joint arthrodesis. I reviewed at length with the patient, the risks, potential complications, benefits, alternatives, expectations, and typical outcomes associated with the surgery. The risks and potential complications were explained in detail, including but not limited to infection, wound dehiscence or soft tissue complications, bleeding and hematoma, chronic edema, neuritis or nerve damage producing numbness or chronic pain, CRPS, failure to relieve pain or worsening pain, thick / painful / unsightly scar, limited motion / stiffness, malposition, delayed union, malunion, or nonunion, fracture, reaction to implants, anesthetic complications, venous thromboembolism, and deformity recurrence. I discussed the notion of no regrets with the patient as it pertains to complications and outcomes. The patient seemed to understand the nature of the proposed care and required convalescence. They asked appropriate questions, answered to their satisfaction. They are aware no guarantees can be made as to a satisfactory outcome and they understand there may be other possible unforeseen complications or outcomes not listed here that will be treated accordingly if they arise. There were no written or implied guarantees given to the patient. They gave informed consent to proceed. Scheduled for outpatient surgery October 31, 2024 left extensor hallucis longus tendon transfer and left hallux interphalangeal joint arthrodesis. Local MAC, gurney, supine, mini C arm, Mackey, 30 minutes PDMP PDMP Reviewed: Not Reviewed Coding Level of Care Code Acute Code for [facility] Fwd Diagnoses Contracture, left foot M24.575 Hallux valgus (acquired), left foot M20.12 Left foot pain M79.672
[2024-10-31] MEDS: sodium chloride 0.9% 1,000 ML 30 ML IV (07:27)
[2024-10-31 07:36] LABS: Glucose Point of Care 128 mg/dL (70-110)
--- NOTE | 2024-10-31 07:53 | ANES.PREANE2 ---
Pre-Anesthetic Assessment Height/Weight: Height 1.68 m Weight 88.451 kg Temp Pulse Resp BP Pulse Ox O2 Del Method 97.6 F 69 18 131/81 94 Room Air 10/31/24 06:47 10/31/24 06:47 10/31/24 06:47 10/31/24 06:47 10/31/24 06:47 10/31/24 06:48 Preop Diagnosis: Left hallux valgus. Operation Date: 10/31/24 08:00 Proposed Procedures p Hallux Interphalangeal Joint Fusion(Left) - Jr Ahuja DPM s Hallucis Extensor Longus Tendon Transfer(Left) - Jr Ahuja DPM Familial anesthetic complications: none Was Beta Deedee taken within 24 hours: Yes Was Clonidine taken within 24 hours: N/A Last intake: Intake Last Liquid Date 10/30/24 Last Liquid Time 21:30 Last Solid Date 10/30/24 Last Solid Time 18:00 Social No alcohol and No tobacco Exam alert, oriented x 3, clear to auscultation bilaterally and regular rate & rhythm Pt. states has been nauseous after surgery, last procedure in Jul. did not cause nausea. Airway Cervical ROM: within normal limits Mallampati: Class I Comments: Comments: missing multiple, none loose. Pulmonary None reported CV/HEM Hypertension None reported Hepatic None reported GI None reported Metabolic Diabetes Mellitus, Hyperlipidemia, Morbid Obesity and Thyroid Disease (hypothyroid on synthroid) Preop glucose 128 Musc/skel None reported Neuropsych None reported Anesthetic Plan ASA status: 3 Anesthesia: MAC Risk of > 500 ml blood loss (7ml/kg in children): No Medications/Allergies Home Medications ?Medication ?Instructions ?Recorded ?Confirmed ?Last Taken ?Type diazepam 10 mg tablet 10 mg PO BEDTIME 08/28/19 10/30/24 10/30/24 History ascorbic acid 7.5 mg-vit E 7.5 1 tab PO DAILY@1000 11/12/20 10/30/24 10/30/24 History unit-biotin 1,250 mcg chewable tablet (Hair,Skin,Nails with Biotin) hydrocodone 10 mg-acetaminophen 0.5 - 1 tab PO .EVERY 4-6 HOURS 11/12/20 10/31/24 10/29/24 History 325 mg tablet PRN Pain multivitamin 1 tab PO DAILY@1000 11/12/20 10/30/24 10/30/24 History Diabetic Shoes with Inserts #1 ea 07/26/22 09/25/24 Unknown Rx insulin syringe-needle U-100 1 mL #100 ea 09/06/22 09/25/24 Unknown Rx 28 gauge x 1/2 (BD Insulin Syringe) ramelteon 8 mg tablet 8 mg PO BEDTIME 10/30/22 10/30/24 10/30/24 History cyanocobalamin (vitamin B-12) 1,000 mcg PO DAILY 01/03/23 10/30/24 10/30/24 History 1,000 mcg tablet (Vitamin B-12) Diabetic shoes #1 ea 04/11/23 09/25/24 Unknown Rx blood-glucose meter #1 ea 06/12/23 09/25/24 Unknown Rx blood sugar diagnostic (Blood #200 ea 06/15/23 09/25/24 Unknown Rx Glucose Test strips) blood-glucose meter (Accu-Chek #1 ea 06/27/23 09/25/24 Unknown Rx Guide Glucose Meter) blood sugar diagnostic (Accu-Chek #100 ea 07/26/23 09/25/24 Unknown Rx Guide test strips) lancets (Accu-Chek Softclix #200 ea 09/14/23 09/25/24 Unknown Rx Lancets) insulin syringe-needle U-100 1 mL #100 ea 10/02/23 09/25/24 Unknown Rx 31 gauge x 5/16 (TRUEplus Insulin) insulin glargine 100 unit/mL 20 unit (0.2 mL) SUBCUT BEDTIME 05/06/24 10/30/24 10/30/24 Rx subcutaneous solution (Lantus #20 mL U-100 Insulin) semaglutide 0.25 mg or 0.5 mg (2 0.25 mg (0.368 mL) SUBCUT .weekly 05/06/24 10/30/24 10/22/24 Rx mg/3 mL) subcutaneous pen injector #3 mL ([employer]oh[employer]oh) cam boot to right #1 ea 05/22/24 09/25/24 Unknown Rx mupirocin 2 % topical ointment 1 applic topical BID 2 weeks #22 06/04/24 10/31/24 07/17/24 Rx grams aspirin 325 mg tablet 325 mg PO DAILY 07/18/24 10/30/24 10/30/24 History atorvastatin 20 mg tablet 20 mg PO DAILY 07/18/24 10/30/24 10/30/24 History cyclobenzaprine 10 mg tablet 10 mg PO TID PRN Muscle Spasm 07/18/24 10/30/24 10/30/24 History gabapentin 100 mg capsule 100 mg PO BID 07/18/24 10/30/24 10/30/24 History glimepiride 4 mg tablet 4 mg PO BID 07/18/24 10/30/24 10/30/24 History levothyroxine 200 mcg tablet 200 mcg PO DAILY 07/18/24 10/30/24 10/30/24 History meloxicam 15 mg tablet 15 mg PO DAILY 07/18/24 10/30/24 10/30/24 History potassium chloride 20 mEq 20 meq PO DAILY 07/18/24 10/30/24 10/30/24 History tablet,extended release propranolol 80 mg capsule,24 80 mg PO DAILY 10/30/24 10/30/24 10/31/24 History hr,extended release Allergies Allergy/AdvReac Type Severity Reaction Status Date / Time azithromycin (From Zithromax) Allergy rash Verified 10/31/24 07:01 cetirizine (From Zyrtec) Allergy rash Verified 10/31/24 07:01 lisinopril (From Zestril) Allergy ALGY-Swell Verified 10/31/24 07:01 Lip/Tongue/Throat metformin AdvReac Intermediate diarrhea Verified 10/31/24 07:01 topiramate (From Topamax) AdvReac Intermediate diarrhea Verified 10/31/24 07:01 Current Medications Generic Name Dose Route Start Last Admin Trade Name Freq PRN Reason Stop Dose Admin Sodium Chloride 1,000 mls @ 30 mls/hr 10/31/24 06:45 10/31/24 07:27 Sodium Chloride 0.9% IV 11/01/24 06:44 30 mls/hr .Q24H JACQUELINE Administration PFSH Anesthesia Medical History 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 Left shoulder pain Hypothyroid Hyperlipidemia Hypertension Diabetes mellitus Suspected COVID-19 virus infection Hypothyroidism Chronic diarrhea Tension headache, chronic CVA (cerebral vascular accident) TIA (transient ischemic attack) History of aphasia Hx of kidney disease Hx of type 2 diabetes mellitus History of anemia History of GI bleed History of hypothyroidism Hx of primary hypertension History of bipolar disorder History of anxiety History of depression History of posttraumatic stress disorder (PTSD) Surgical History Hx of appendectomy History of back surgery Hx of cholecystectomy Hx of hysterectomy Hx of neck surgery Social History Smoking and tobacco/nicotine status: never used tobacco/nicotine Alcohol intake: current Alcohol intake frequency: holidays/special occasions only Substance/Drug Use: never Data Anesthesia Cardiac Studies: No Data to Display
[2024-10-31] MEDS: ceFAZolin 2,000 mg SDV 2000 MG IVP (07:59)
[2024-10-31] MEDS: BUPivacaine liposome 13.3 mg/mL SDV 20 mL 266 MG INJECTION (08:06)
[2024-10-31] MEDS: BUPivacaine 0.5% INJ 10 mL 20 ML INJECTION (08:06)
[2024-10-31] MEDS: tranexamic acid 1,000 mg/10mL SDV 1000 MG IV (08:07)
--- NOTE | 2024-10-31 08:47 | P.BOP_ITS ---
Date of Procedure: 09/21/23 Surgeon: Jr Ahuja DPM Silk Screen Printer Machine(s): Tesha Procedure(s) performed: Left hallux interphalangeal joint arthrodesis. Left extensor hallucis longus tendon transfer. Findings of the procedure(s): None Estimated blood loss: 2 mL Specimen(s) removed: No specimens Post-operative diagnosis: Left hallux valgus and hallux malleus, left foot tendon contracture
--- NOTE | 2024-10-31 08:47 | PM.OP ---
Operative Report Date of procedure: October 31, 2024 Surgeon: Jr Ahuja DPM Carbon Brusher Assembler: Tesha Estimated blood loss: 2 32 Procedure: Date of procedure: October 31, 2024 Pre-op diagnosis: Diabetic peripheral neuropathy associated with type 2 diabetes mellitus E11.42 Pre-ulcerative calluses L84 Hallux valgus (acquired), left foot M20.12 Contracture, left foot M24.575 Post-op diagnosis: Diabetic peripheral neuropathy associated with type 2 diabetes mellitus E11.42 Pre-ulcerative calluses L84 Hallux valgus (acquired), left foot M20.12 Contracture, left foot M24.575 Procedure done: 1) left hallux interphalangeal joint fusion. CPT code 56166 2) left extensor hallucis longus tendon transfer. [id number] Implants: Clinton 3.0 mm titanium Meat Grading Machine Operator bone anchor. Clinton 3.0 mm headless screw partially-threaded and cannulated x 2, 4-0 Vicryl, 4-0 nylon Specimens removed/disposition: No specimens Pathology: No pathology Surgeon: Jr Ahuja DPM Carbon Brusher Assembler: Tesha Estimated blood loss: 2 Tourniquet time 32 minutes IV fluids: See intraoperative documentation Urine output: No urine output Complications: No complications Brief History: X-ray right foot 3 views show stable interval of healing at right foot. Intact hardware right foot. Subjectively patient denies any pain or swelling right foot she remains healed and no reulceration of the great toe. She is happy with this. Would like to discuss surgical correction of her left great toe Left foot hallux valgus and tendon contracture of the left forefoot involving the medial column, has mechanical overload and hemorrhagic hyperkeratotic lesion at the medial aspect of the hallux interphalangeal joint wishing to do surgical correction as a means of surgical offloading to prevent wounds infections and and even amputation. Recommended tendon transfer left forefoot and left hallux interphalangeal joint arthrodesis. I reviewed at length with the patient, the risks, potential complications, benefits, alternatives, expectations, and typical outcomes associated with the surgery. The risks and potential complications were explained in detail, including but not limited to infection, wound dehiscence or soft tissue complications, bleeding and hematoma, chronic edema, neuritis or nerve damage producing numbness or chronic pain, CRPS, failure to relieve pain or worsening pain, thick / painful / unsightly scar, limited motion / stiffness, malposition, delayed union, malunion, or nonunion, fracture, reaction to implants, anesthetic complications, venous thromboembolism, and deformity recurrence. I discussed the notion of no regrets with the patient as it pertains to complications and outcomes. The patient seemed to understand the nature of the proposed care and required convalescence. They asked appropriate questions, answered to their satisfaction. They are aware no guarantees can be made as to a satisfactory outcome and they understand there may be other possible unforeseen complications or outcomes not listed here that will be treated accordingly if they arise. There were no written or implied guarantees given to the patient. They gave informed consent to proceed. Procedure: Under mild sedation the patient was brought to the operating room and remained on the gurney in supine position. A timeout was performed. Anesthesia was then administered by the anesthesia service. Local anesthesia injected by myself consisting of 20 cc of 0.5% Marcaine plain and 20 cc of Exparel in a Lanza block fashion right foot. Well-padded pneumatic tourniquet applied to the left ankle. The left lower extremity was scrubbed, prepped and draped utilizing normal aseptic technique. Left foot was exanguinated with a Esmarch bandage and tourniquet inflated to 250 mmHg. Attention was directed to the left hallux noted to be in a valgus fixed position that was nonreducible, a linear longitudinal incision was performed at the dorsal aspect of the left hallux encompassing the hallux interphalangeal joint through skin with #15 blade with dissection carried down through subcutaneous tissue to the layer periosteum and joint capsule to hallux interphalangeal joint, the extensor digitorum longus tendon was transected at this level and the joint was freed from its soft tissue and capsular attachments. The head of the proximal phalanx and base of the distal phalanx were transected of the articular surface with a sagittal saw and fenestrating drill bit utilized to perforate the arthrodesis site at the hallux interphalangeal joint. The hallux was held in rectus and fixated utilizing standard AO technique with a Clinton 3.0 mm headless partially-threaded cannulated screws in crossing fashion with excellent bony apposition and compression noted. The incision was irrigated with copious amounts of sterile skin solution and the extensor tendon was reapproximated with 4-0 Vicryl, periosteal and capsular structures also reapproximated with 4-0 Vicryl, subcutaneous tissue reapproximated 4-0 Vicryl and skin with 4-0 nylon. Attention was directed to the dorsal medial aspect of the left first metatarsal neck where a linear incision was performed with a #15 blade through skin and dissection carried down to the extensor hallucis longus tendon utilizing a combination of sharp and blunt technique. Care was taken to retract and preserve neurovascular and tendinous structures. All bleeders were ligated and cauterized as necessary. The extensor hallucis longus tendon was transferred to the neck of the left first metatarsal utilizing a Clinton 3.0 mm titanium Meat Grading Machine Operator bone anchor with excellent bony apposition and a successful tendon transfer observed intraoperatively. The incision was irrigated skin solution and subcutaneous tissue reapproximated with 4-0 Vicryl and skin with 4-0 nylon. Tourniquet was deflated and a prompt hyperemic response is noted to the distal digits of the left foot. Patient tolerated the procedure and anesthesia well and was transferred to the PACU with vital signs stable vascular status intact. Following a period of postop monitoring to be discharged home without home care instructions and scheduled follow-up.
--- NOTE | 2024-10-31 09:07 | XR_ITS ---
WS: [id number] Exam: XR foot LT min 3V* [id number] Date/Time of Exam: 10/31/2024 9:10 AM Reason For Exam: post op Comparison 03/16/2020. There is arthrodesis of the DIP joint of the great toe with 2 crossing screws. Alignment appears satisfactory. There is also a single screw in the mid shaft of the first metatarsal. A pre-existing screw is seen in the fifth metatarsal. No other postoperative changes are identified.
--- NOTE | 2024-10-31 09:50 | ANE.PACU2 ---
Inpatient post-anesthesia follow up: Airway intact: Yes Vital signs: Temperature 98.3 F Pulse Rate 60 Respiratory Rate 18 Blood Pressure 134/74 Pulse Oximetry 99 Oxygen Delivery Me thod Room Air Oxygen Flow Rate 6 Fraction of Inspir ed Oxygen Hydration adequate: Yes Nausea and vomiting: No Pain level: 1 Mental status: Baseline
== END 2024-10-31 09:45 | disposition home or self-care (01) ==
PROVIDERS: PCP Family Medicine; Visit Provider Podiatrist Foot & Ankle Surgery
PROC: (CPT 28755; principal; 2024-10-31 08:00)
PROC: (CPT 27691; 2024-10-31 08:00)
DX: M20.12 Hallux valgus (acquired), left foot (principal); M24.572 Contracture, left ankle; E11.42 Type 2 diabetes mellitus with diabetic polyneuropathy; L84 Corns and callosities; I10 Essential (primary) hypertension; E03.9 Hypothyroidism, unspecified; E78.5 Hyperlipidemia, unspecified; Z79.899 Other long term (current) drug therapy; Z79.4 Long term (current) use of insulin; Z79.82 Long term (current) use of aspirin; Z79.85 Long-term (current) use of injectable non-insulin antidiabetic drugs; Z79.890 Hormone replacement therapy; Z88.8 Allergy status to other drugs, medicaments and biological substances; Z86.73 Personal history of transient ischemic attack (TIA), and cerebral infarction without residual deficits
CPT/HCPCS: 27691; 28755; 36416; 73630; 82962; C1713; J0666; J0690; J2405; J2704; J3010; J3490; J7030; J9999

== ENCOUNTER → 2024-11-13 13:38 | Outpatient (BNVA) | payer MEDICARE, OTHER, SELFPAY | PROVIDERS: PCP Family Medicine; Visit Provider Podiatrist Foot & Ankle Surgery | DX: Z98.890 Other specified postprocedural states (principal); M24.575 Contracture, left foot; M20.12 Hallux valgus (acquired), left foot; M79.672 Pain in left foot | CPT/HCPCS: 73630; 99024 ==

== ENCOUNTER → 2024-11-20 13:03 | Outpatient (BNVA) | payer MEDICARE, OTHER, SELFPAY | PROVIDERS: PCP Family Medicine; Visit Provider Podiatrist Foot & Ankle Surgery | DX: M24.575 Contracture, left foot (principal); M20.12 Hallux valgus (acquired), left foot; M79.672 Pain in left foot; Z98.890 Other specified postprocedural states | CPT/HCPCS: 99024 ==

== ENCOUNTER → 2024-11-27 10:47 | Outpatient (BNVA) | payer MEDICARE, OTHER, SELFPAY | PROVIDERS: PCP Family Medicine; Visit Provider Podiatrist Foot & Ankle Surgery | DX: Z98.890 Other specified postprocedural states (principal); M24.575 Contracture, left foot; M20.12 Hallux valgus (acquired), left foot; M79.672 Pain in left foot | CPT/HCPCS: 73630; 99024 ==

== ENCOUNTER → 2024-12-11 13:28 | Outpatient (BNVA) | payer MEDICARE, OTHER, SELFPAY | PROVIDERS: PCP Family Medicine; Visit Provider Podiatrist Foot & Ankle Surgery | DX: Z98.890 Other specified postprocedural states (principal); M24.575 Contracture, left foot; M20.12 Hallux valgus (acquired), left foot; M79.672 Pain in left foot; E11.42 Type 2 diabetes mellitus with diabetic polyneuropathy; Z79.4 Long term (current) use of insulin | CPT/HCPCS: 73630; 99213 ==

== ENCOUNTER → 2024-12-25 08:54 | Outpatient (BNVA) | payer MEDICARE, OTHER, SELFPAY | PROVIDERS: PCP Family Medicine; Visit Provider Family Medicine | DX: I10 Essential (primary) hypertension (principal); R73.03 Prediabetes; R53.83 Other fatigue; N18.9 Chronic kidney disease, unspecified | CPT/HCPCS: 80053; 80061; 83036; 84443; 85025 ==

== ENCOUNTER → 2024-12-29 12:52 | Outpatient (BNVA) | payer MEDICARE, OTHER, SELFPAY | PROVIDERS: PCP Family Medicine; Visit Provider Podiatrist Foot & Ankle Surgery | DX: Z98.890 Other specified postprocedural states (principal); M20.12 Hallux valgus (acquired), left foot; M24.575 Contracture, left foot; M79.672 Pain in left foot; E11.42 Type 2 diabetes mellitus with diabetic polyneuropathy; L60.0 Ingrowing nail; L03.116 Cellulitis of left lower limb; Z79.4 Long term (current) use of insulin | CPT/HCPCS: 11730; 36415; 73630; 80053; 85025; 85651; 86140; 87070; 87075; 87077; 87186; 87205; 99214 ==

== ENCOUNTER → 2025-01-05 10:07 | Outpatient (BNVA) | payer MEDICARE, OTHER, SELFPAY | PROVIDERS: PCP Family Medicine; Visit Provider Podiatrist Foot & Ankle Surgery | DX: M79.672 Pain in left foot (principal); L03.116 Cellulitis of left lower limb; L60.0 Ingrowing nail; M24.575 Contracture, left foot; M20.12 Hallux valgus (acquired), left foot; E11.42 Type 2 diabetes mellitus with diabetic polyneuropathy; T84.498A Other mechanical complication of other internal orthopedic devices, implants and grafts, initial encounter; Y79.2 Prosthetic and other implants, materials and accessory orthopedic devices associated with adverse incidents; Z79.4 Long term (current) use of insulin; Z46.89 Encounter for fitting and adjustment of other specified devices | CPT/HCPCS: 73630; 87070; 87075; 87176; 87205 ==

== ENCOUNTER → 2025-01-05 11:32 | Outpatient (CLI) | payer MEDICARE, OTHER, SELFPAY | PROVIDERS: PCP Family Medicine; Visit Provider Podiatrist Foot & Ankle Surgery | DX: Z46.89 Encounter for fitting and adjustment of other specified devices (principal); M24.575 Contracture, left foot; M20.12 Hallux valgus (acquired), left foot; L60.0 Ingrowing nail; L03.116 Cellulitis of left lower limb; E11.42 Type 2 diabetes mellitus with diabetic polyneuropathy | CPT/HCPCS: 97760; 99214; L4361 ==

== ENCOUNTER → 2025-01-08 11:14 | Outpatient (BNVA) | payer MEDICARE, OTHER, SELFPAY | PROVIDERS: PCP Family Medicine; Visit Provider Podiatrist Foot & Ankle Surgery | DX: L03.116 Cellulitis of left lower limb (principal); M24.575 Contracture, left foot; M20.12 Hallux valgus (acquired), left foot; M79.672 Pain in left foot; E11.42 Type 2 diabetes mellitus with diabetic polyneuropathy; L60.0 Ingrowing nail; T84.498A Other mechanical complication of other internal orthopedic devices, implants and grafts, initial encounter; L97.524 Non-pressure chronic ulcer of other part of left foot with necrosis of bone; T84.84XA Pain due to internal orthopedic prosthetic devices, implants and grafts, initial encounter; E11.621 Type 2 diabetes mellitus with foot ulcer; Y79.2 Prosthetic and other implants, materials and accessory orthopedic devices associated with adverse incidents; Z79.4 Long term (current) use of insulin | CPT/HCPCS: 99214 ==

== ENCOUNTER 2025-01-14 10:09 | Day surgery (SDC) | payer MEDICARE, OTHER, SELFPAY ==
[2025-01-14 10:22] VITALS: BP 149/93; PULSE 129; RESP 18; TEMP 36.2; O2SAT 95
[2025-01-14 10:27] VITALS: BMI 31.6
--- NOTE | 2025-01-14 10:29 | ANES.PREANE2 ---
Pre-Anesthetic Assessment Height/Weight: Height 1.68 m Weight 88.904 kg Temp Pulse Resp BP Pulse Ox O2 Del Method 97.2 F L 129 H 18 149/93 95 Room Air 01/14/25 10:22 01/14/25 10:22 01/14/25 10:22 01/14/25 10:22 01/14/25 10:22 01/14/25 10:28 Preop Diagnosis: Infected hardware left great toe Operation Date: 01/14/25 12:00 Proposed Procedures p Hardware Removal LEFT Great Toe(Left) - Jr Ahuja DPM s Incision of Bone Cortex LEFT Great Toe(Left) - Jr Ahuja DPM Familial anesthetic complications: PONV Was Beta Deedee taken within 24 hours: N/A Was Clonidine taken within 24 hours: N/A Last intake: > 8hrs Social No alcohol and No tobacco Exam alert, oriented x 3, clear to auscultation bilaterally and regular rate & rhythm Airway Mallampati: Class II Dentition: other (missing) Metabolic Diabetes Mellitus, Hyperlipidemia, Morbid Obesity and Thyroid Disease Anesthetic Plan ASA status: 3 Anesthesia: MAC Risk of > 500 ml blood loss (7ml/kg in children): No Medications/Allergies Home Medications ?Medication ?Instructions ?Recorded ?Confirmed ?Last Taken ?Type diazepam 10 mg tablet 10 mg PO BEDTIME 08/28/19 01/13/25 01/12/25 History ascorbic acid 7.5 mg-vit E 7.5 1 tab PO DAILY@1000 11/12/20 01/13/25 01/12/25 History unit-biotin 1,250 mcg chewable tablet (Hair,Skin,Nails with Biotin) hydrocodone 10 mg-acetaminophen 0.5 - 1 tab PO .EVERY 4-6 HOURS 11/12/20 01/13/25 01/12/25 History 325 mg tablet PRN Pain multivitamin 1 tab PO DAILY@1000 11/12/20 01/13/25 01/12/25 History insulin syringe-needle U-100 1 mL #100 ea 09/06/22 01/08/25 Unknown Rx 28 gauge x 1/2 (BD Insulin Syringe) ramelteon 8 mg tablet 8 mg PO BEDTIME 10/30/22 01/13/25 01/12/25 History cyanocobalamin (vitamin B-12) 1,000 mcg PO DAILY 0601/13/25 01/12/25 History 1,000 mcg tablet (Vitamin B-12) Diabetic shoes #1 ea 04/11/23 01/08/25 Unknown Rx blood-glucose meter #1 ea 06/12/23 01/08/25 Unknown Rx blood sugar diagnostic (Blood #200 ea 06/15/23 01/08/25 Unknown Rx Glucose Test strips) blood-glucose meter (Accu-Chek #1 ea 06/27/23 01/08/25 Unknown Rx Guide Glucose Meter) blood sugar diagnostic (Accu-Chek #100 ea 07/26/23 01/08/25 Unknown Rx Guide test strips) lancets (Accu-Chek Softclix #200 ea 09/14/23 01/08/25 Unknown Rx Lancets) aspirin 325 mg tablet 325 mg PO DAILY 07/18/24 01/13/25 01/12/25 History atorvastatin 20 mg tablet 20 mg PO DAILY 07/18/24 01/13/25 01/12/25 History cyclobenzaprine 10 mg tablet 10 mg PO TID PRN Muscle Spasm 07/18/24 01/13/25 01/12/25 History gabapentin 100 mg capsule 100 mg PO BID 07/18/24 01/13/25 01/12/25 History glimepiride 4 mg tablet 4 mg PO BID 07/18/24 01/13/25 01/12/25 History levothyroxine 200 mcg tablet 200 mcg PO DAILY 07/18/24 01/13/25 01/12/25 History meloxicam 15 mg tablet 15 mg PO DAILY 07/18/24 01/13/25 01/12/25 History potassium chloride 20 mEq 20 meq PO DAILY 07/18/24 01/13/25 01/12/25 History tablet,extended release propranolol 80 mg capsule,24 80 mg PO DAILY 10/30/24 01/13/25 01/12/25 History hr,extended release hydrocodone 10 mg-acetaminophen 1 tab PO Q8H pain 7 days #21 tabs 11/07/24 01/13/25 01/12/25 Rx 325 mg tablet Diabetic Shoes with Inserts #1 ea 12/11/24 01/08/25 Unknown Rx mupirocin 2 % topical ointment 1 applic topical BID 2 weeks #22 12/11/24 01/13/25 Unknown Rx grams lamotrigine 200 mg tablet 200 mg PO BID 12/30/24 01/13/25 01/12/25 History lidocaine 5 % topical patch 1 patch topical DAILY #30 ea 12/30/24 01/13/25 12/23/24 Rx (Lidoderm) quetiapine 400 mg tablet 400 mg PO .QHS 12/30/24 01/13/25 01/12/25 History semaglutide 0.25 mg or 0.5 mg (2 0.5 mg (0.736 mL) SUBCUT .weekly 12/30/24 01/12/25 01/06/25 Rx mg/3 mL) subcutaneous pen injector #3 mL (FABPulous) insulin syringe-needle U-100 1 mL #100 ea 01/02/25 01/08/25 Unknown Rx 31 gauge x 5/16 (TRUEplus Insulin) cam boot to right #1 ea 01/05/25 01/08/25 Unknown Rx ciprofloxacin HCl 500 mg tablet 500 mg PO BID #14 tabs 01/08/25 01/13/25 01/12/25 Rx Allergies Allergy/AdvReac Type Severity Reaction Status Date / Time azithromycin (From Zithromax) Allergy rash Verified 01/08/25 11:28 cetirizine (From Zyrtec) Allergy rash Verified 01/08/25 11:28 lisinopril (From Zestril) Allergy ALGY-Swell Verified 01/08/25 11:28 Lip/Tongue/Throat metformin AdvReac Intermediate diarrhea Verified 01/08/25 11:28 topiramate (From Topamax) AdvReac Intermediate diarrhea Verified 01/08/25 11:28 [facility] Anesthesia Medical History 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 Left shoulder pain Hypothyroid Hyperlipidemia Hypertension Diabetes mellitus Suspected COVID-19 virus infection Hypothyroidism Chronic diarrhea Tension headache, chronic CVA (cerebral vascular accident) TIA (transient ischemic attack) History of aphasia Hx of kidney disease Hx of type 2 diabetes mellitus History of anemia History of GI bleed History of hypothyroidism Hx of primary hypertension History of bipolar disorder History of anxiety History of depression History of posttraumatic stress disorder (PTSD) Surgical History Hx of appendectomy History of back surgery Hx of cholecystectomy Hx of hysterectomy Hx of neck surgery Social History Smoking and tobacco/nicotine status: never used tobacco/nicotine Alcohol intake: current Alcohol intake frequency: holidays/special occasions only Substance/Drug Use: never
--- NOTE | 2025-01-14 10:47 | ECG_ITS ---
[facility] Test Date: 2025-01-14 Pat Name: Kaylee Ch Department: Room: Gender: Female Manager Clinic: : 1955 Requested By: Yakelin Walton Order Number: [id number] Yasmine MD: Barrie Urbina M.D. Measurements Intervals [place] Rate: 111 P: 43 HI: 157 QRS: 45 QRSD: 83 T: 33 QT: 316 QTc: 431 Interpretive Statements SINUS TACHYCARDIA POSSIBLE LEFT ATRIAL ENLARGEMENT [-0.1mV P-WAVE IN V1/V2] ABNORMAL RHYTHM ECG Compared to ECG 04/08/2022 15:48:23 Sinus rhythm no longer present T-wave abnormality no longer present Electronically Signed On 01-14-2025 20:26:12 CDT by Barrie Urbina M.D. [email or web address]
--- NOTE | 2025-01-14 11:49 | W.PM.OPSUD ---
Surgery/Procedure H&P Update DATE OF PROCEDURE: January 14, 2025 DATE H&P PERFORMED: 01/08/25 H&P UPDATE INFORMATION: I have reviewed H&P completed within last 30 days, I have examined patient prior to procedure, No changes to prior documentation and Risks and benefits of the procedure reviewed PREOP DIAGNOSIS: Infected hardware left great toe PLANNED PROCEDURE: Operation Date: 01/14/25 12:00 Proposed Procedures p Hardware Removal LEFT Great Toe(Left) - Jr Ahuja DPM s Incision of Bone Cortex LEFT Great Toe(Left) - Jr Ahuja DPM
[2025-01-14 11:50] LABS: Anion Gap 17.7 (5-19); Blood Urea Nitrogen 16 mg/dL (8-23); Calcium 9.9 mg/dL (8.5-10.5); Carbon Dioxide 24 mmol/L (22-29); Chloride 99 mmol/L (98-107); Creatinine Clr Calc Pharmacy 65.3229; Glucose 202 mg/dL (65-115); Osmolality Calculated 291 mOsm/kg (285-295); Potassium 3.7 mmol/L (3.5-5.1); Sodium 137 mmol/L (136-145)
[2025-01-14] MEDS: BUPivacaine 0.5% INJ 30 mL XX (12:11)
[2025-01-14 12:33] VITALS: BP 90/60; PULSE 89; RESP 12; TEMP 36.6; O2SAT 96
--- NOTE | 2025-01-14 12:37 | P.BOP_ITS ---
Date of Procedure: 09/21/23 Surgeon: Jr Ahuja DPM Cyber Forensic Specialist(s): Tesha Procedure(s) performed: Hardware removal and incision of bone cortex left great toe. Findings of the procedure(s): Devitalized soft tissue and bone left great toe Estimated blood loss: 2 mL Specimen(s) removed: None Post-operative diagnosis: Painful hardware and wound with necrosis of bone left great toe.
[2025-01-14 12:38] VITALS: BP 114/62; PULSE 85; RESP 13; O2SAT 97
[2025-01-14 12:43] VITALS: BP 111/62; PULSE 84; RESP 16; O2SAT 96
--- NOTE | 2025-01-14 12:46 | P.OP_ITS ---
Operative Report Date of procedure: January 14, 2025 Pre-op diagnosis: Left foot pain M79.672 Cellulitis of left foot L03.116 Non-pressure chronic ulcer of other part of left foot with necrosis of bone L97.524 Painful orthopaedic hardware T84.84XA Post-op diagnosis: Left foot pain M79.672 Cellulitis of left foot L03.116 Non-pressure chronic ulcer of other part of left foot with necrosis of bone L97.524 Painful orthopaedic hardware T84.84XA Procedure done: 1) hardware removal left great toe. CPT code 68338 2 Incision of bone cortex left great toe. CPT code 49211. Implants: 4-0 Vicryl, 4-0 nylon Surgeon: Jr Ahuja DPM Business Support Assistant: Tesha Estimated blood loss: 2 11 IV fluids: See intraoperative documentation Urine output: None Complications: None Brief History: Patient has had a progression of cellulitis and exposed hardware as outlined in HPI, x-ray of the left foot suspicious for osteomyelitis due to bone fragmentation and erosive changes at the hallux interphalangeal joint given the clinical findings of exposed hardware and cellulitis will require incision and debridement down to bone cortex and hardware removal can be scheduled outpatient as at this time she is clinically stable without constitutional complaints. I reviewed at length with the patient, the risks, potential complications, benefits, alternatives, expectations, and typical outcomes associated with the surgery. The risks and potential complications were explained in detail, including but not limited to infection, wound dehiscence or soft tissue complications, bleeding and hematoma, chronic edema, neuritis or nerve damage producing numbness or chronic pain, CRPS, failure to relieve pain or worsening pain, thick / painful / unsightly scar, limited motion / stiffness, malposition, delayed union, malunion, or nonunion, fracture, reaction to implants, anesthetic complications, venous thromboembolism, and deformity recurrence. I discussed the notion of no regrets with the patient as it pertains to complications and outcomes. The patient seemed to understand the nature of the proposed care and required convalescence. They asked appropriate questions, answered to their s atisfaction. They are aware no guarantees can be made as to a satisfactory outcome and they understand there may be other possible unforeseen complications or outcomes not listed here that will be treated accordingly if they arise. There were no written or implied guarantees given to the patient. They gave informed consent to proceed. Initial wound cultures are significant for Pseudomonas. Hardware exposed at last visit that was removed as well as wound culture negative for growth patient was on ciprofloxacin when this was performed. Procedure: Under mild sedation the patient was brought to the operating room and remained on the gurney in supine position. A timeout was performed. Anesthesia was then administered by the anesthesia service. Local anesthesia injected by myself consisting of 20 cc of one-to-one mixture 1% lidocaine and 0.5% Marcaine plain in a left Lanza block fashion. Well-padded pneumatic tourniquet applied to the left ankle. Left lower extremity was scrubbed, prepped and draped utilizing normal aseptic technique. Left foot was then elevated and tourniquet inflated to 250 mmHg. No Esmarch bandage utilized. Attention was directed to the left great toe which was noted to have erythema about the entire toe without proximal lymphangitic streaking. Incision was made directly over the hallux interphalangeal joint with dissection carried down through subcutaneous tissue to layer of periosteum, devitalized bone was appreciated this was incised sharply with 15 blade and pickups as well as rongeur. Bone at the head of the proximal phalanx and base of the distal phalanx were incised down to healthy bone. The incision was irrigated with copious amounts of sterile saline solution. Small incision at the distal medial aspect of the left hallux with dissection carried down to bone and hardware screw was identified and backed out by hand in toto without fragmentation or failure out of the distal and intermediate phalanx and passed from the operative field. The incision was irrigated with copious amounts of sterile skin solution. Medial incision closed with 4-0 nylon. Dorsal incision closed in a layered fashion with 4-0 Vicryl with extensor tendons being reapproximated and subcutaneous tissue reapproximated with 4-0 Vicryl and skin with 4-0 nylon. Incisions dressed with Xeroform, 4 x 4 gauze, Kerlix, Emil wrap and cam boot applied to the left lower extremity. Tourniquet was deflated and a prompt hyperemic response is noted to the distal digits of the left foot. Patient tolerated the procedure and anesthesia well and was transferred to the PACU with vital signs stable and vascular status intact. Following a period of postoperative monitoring should be discharged home without home care instructions and scheduled follow-up.
[2025-01-14 12:48] VITALS: BP 121/77; PULSE 86; RESP 15; O2SAT 98
--- NOTE | 2025-01-14 12:55 | ANE.PACU2 ---
Inpatient post-anesthesia follow up: Airway intact: Yes Vital signs: Temperature 97.8 F Pulse Rate 86 Respiratory Rate 15 Blood Pressure 121/77 Pulse Oximetry 98 Oxygen Delivery Me thod Simple Mask Oxygen Flow Rate 8 Fraction of Inspir ed Oxygen Hydration adequate: Yes Nausea and vomiting: No Pain level: 1 Mental status: Baseline
== END 2025-01-14 13:40 | disposition home or self-care (01) ==
PROVIDERS: Anesthesiology; PCP Family Medicine; Visit Provider Podiatrist Foot & Ankle Surgery
PROC: (CPT 28005; principal; 2025-01-14 12:00)
PROC: (CPT 28005; 2025-01-14 12:00)
DX: T84.84XA Pain due to internal orthopedic prosthetic devices, implants and grafts, initial encounter (principal); L03.116 Cellulitis of left lower limb; L97.524 Non-pressure chronic ulcer of other part of left foot with necrosis of bone; E11.9 Type 2 diabetes mellitus without complications; E78.5 Hyperlipidemia, unspecified; E66.01 Morbid (severe) obesity due to excess calories; Z68.31 Body mass index [BMI] 31.0-31.9, adult; Z79.4 Long term (current) use of insulin; Z79.82 Long term (current) use of aspirin; I10 Essential (primary) hypertension; E03.9 Hypothyroidism, unspecified; Z86.73 Personal history of transient ischemic attack (TIA), and cerebral infarction without residual deficits; Z87.448 Personal history of other diseases of urinary system; F41.8 Other specified anxiety disorders
CPT/HCPCS: 28005; 20680; 36416; 80048; 82962; 93005; J2405; J2704; J3010; J3373; J3490; J7030

== ENCOUNTER → 2025-01-19 12:55 | Outpatient (BNVA) | payer MEDICARE, OTHER, SELFPAY | PROVIDERS: PCP Family Medicine; Visit Provider Podiatrist Foot & Ankle Surgery | DX: T84.498A Other mechanical complication of other internal orthopedic devices, implants and grafts, initial encounter (principal); T84.84XA Pain due to internal orthopedic prosthetic devices, implants and grafts, initial encounter; L97.524 Non-pressure chronic ulcer of other part of left foot with necrosis of bone; Y79.2 Prosthetic and other implants, materials and accessory orthopedic devices associated with adverse incidents; M24.575 Contracture, left foot; M20.12 Hallux valgus (acquired), left foot; M79.672 Pain in left foot; E11.42 Type 2 diabetes mellitus with diabetic polyneuropathy; Z98.890 Other specified postprocedural states; Z79.4 Long term (current) use of insulin | CPT/HCPCS: 73630; 99024 ==

== ENCOUNTER → 2025-01-26 11:17 | Outpatient (BNVA) | payer MEDICARE, OTHER, SELFPAY | PROVIDERS: PCP Family Medicine; Visit Provider Podiatrist Foot & Ankle Surgery | DX: Z98.890 Other specified postprocedural states (principal); E11.42 Type 2 diabetes mellitus with diabetic polyneuropathy; L03.116 Cellulitis of left lower limb; Z79.4 Long term (current) use of insulin; M86.172 Other acute osteomyelitis, left ankle and foot | CPT/HCPCS: 73630; 99024 ==

== ENCOUNTER 2025-01-26 13:19 | Inpatient (IN) | payer MEDICARE, OTHER, SELFPAY ==
[2025-01-26] VITALS (41 sets, daily range): BP systolic 135–186; BP diastolic 81–123; PULSE 79–149; RESP 14–23; TEMP 36.8–36.9; O2SAT 92–98; BMI 30.7
--- OUTSIDE RECORDS SUMMARY | 2025-01-26 13:26 | XMS_ITS | Clinical Summary ---
Author Organization [facility] Address [address] [place] [address] Care Team Providers Care Senior Salesforce Developer Name Role Phone Jayesh Krueger MD Primary Care Provider [phone] Allergies Active Allergy Reactions Criticality Noted Date Comments Azithromycin Hives,Itching High 08/19/2009 Lisinopril Swelling High 08/19/2009 Lips/tongue Medications acetaminophen (TYLENOL) 500 mg tablet Take 1,000 mg by mouth. 04/30/2020 Active fexofenadine-ps eudoephedrine SR 12 hour (MANDO-D) 60-120 mg tablet Take 1 Tablet by mouth. 11/04/2018 Active pregabalin (LYRICA) 150 mg Capsule Take 1 Capsule by mouth 2 times daily. 08/18/2018 Active multivitamins with minerals Tablet Take 1 Tablet by mouth. 04/30/2020 Active HYDROcodone-amparo taminophen (NORCO) 5-325 mg tabletIndicatio ns:Glenoid fracture of shoulder, right, closed, initial encounter,Acute pain of right shoulder Take 1 Tablet by mouth every 6 hours as needed for Pain, Moderate. Max Daily Amount: 4 Tablets 28 Tablet 0 04/30/2020 Active QUEtiapine (SEROquel) 100 mg tablet TK 3 TS PO HS 04/13/2020 Active cetirizine (ZyrTEC) 10 mg tablet Take 1 Tablet by mouth daily. Active diazePAM (VALIUM) 10 mg tablet Take 10 mg by mouth daily at bedtime. Active DULoxetine (CYMBALTA) 60 mg Capsule, Delayed Release(E.C.) Take 60 mg by mouth daily. Active glimepiride (AMARYL) 4 mg tablet Take 4 mg by mouth 2 times daily. Active glucosamine/cho ndr santamaria A sod (Glucosamine-Ch ondroitin) 1,500-1,200 mg/30 mL Liquid Take 1 Tablet by mouth 2 times daily. Active potassium chloride (KLOR-CON) 20 mEq Extended Release tablet Take 1 Tablet by mouth daily. Active topiramate (TOPAMAX) 100 mg tablet 12/09/2016 Active spironolactone (ALDACTONE) 25 mg tablet 11/13/2016 Active metFORMIN (GLUCOPHAGE) 1,000 mg tablet 01/16/2017 Act dez topiramate (TOPAMAX) 200 mg tablet 10/03/2016 Active propranoloL (INDERAL) 80 mg tablet 11/21/2016 Active temazepam (RESTORIL) 30 mg capsule 11/07/2016 Active cyclobenzaprine (FLEXERIL) 10 mg tablet 11/28/2016 Active lamoTRIgine (LaMICtal) 200 mg tablet 11/13/2016 Active fludrocortisone (FLORINEF) 0.1 mg tablet 03/07/2017 Active insulin glargine (Lantus U-100 Insulin) 100 unit/mL vial 11/27/2016 Active Insulin Syringe-Needle U-100 (BD Insulin Syringe Ultra-Fine) 0.5 mL 30 gauge x 1/2 Syringe 12/08/2016 Active levothyroxine 200 mcg tablet 12/18/2016 Acti ve ezetimibe (ZETIA) 10 mg tablet 03/08/2017 Active Active Problems Problem Noted Date Diagnosed Date Sleep disorder 03/20/2022 Myalgia of auxiliary muscles, head and neck 03/09 Hypersomnia 03/20/2022 Headache 03/20/2022 Cervical spondylosis without myelopathy 03/20/20 Cervical disc disorder 03/20/2022 Acquired spondylolisthesis 03/20/2022 Cervicalgia 03/20/2022 Abnormal cardiovascular stress test 06/10/2013 S/P medial unicompartmental knee arthroplasty Degenerative arthritis of left knee 04/02/2013 Old myocardial infarction 05/15/2012 H/O: CVA (cardiovascular accident) 04/13/2011 T.I.A. 10/25/2009 Type II or unspecified type diabetes mellitus without mention of complication, uncontrolled 08/19/2009 CAD (coronary artery disease) 08/19/2009 Unspecified essential hypertension 08/19/2009 Other and unspecified hyperlipidemia 08/19/2009 Immunizations Immunization Administration Dates Next Due Influenza Seasonal Unspecified Formulation IM Family History Medical History Relation Name Comments Heart Disease Mother Relation Name Status Comments Father Mother Social History Tobacco Use Types Packs/Day Years Used Date Smoking Tobacco: Never Smokeless Tobacco: Never Tobacco Cessation:Counseling Given: Not Answered Alcohol Use Standard Drinks/Week Comments No 0 (1 standard drink = 0.6 oz pur e alcohol) Comments Unknown Sex and Gender Information Value Date Recorded Sex Assigned at Not on file 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 Gender Identity Not on file Sexual Orientation Not on file Last Filed Vital Signs Vital Sign Reading Time Taken Comments Blood Pressure 140/78 03/20/2022 2:43 PM CDT Pulse 72 04/30/2020 8:37 AM CDT Temperature - - Respiratory Rate - - Oxygen Saturation - - Inhaled Oxygen Concentration - - Weight 84.5 kg (186 lb 3.2 oz) 03/20/2022 2:43 P M CDT Height 167.6 cm (5' 6 ) 03/20/2022 2:43 PM CDT Body Mass Index 30.05 03/20/2022 2:43 PM CDT Plan of Treatment Health Maintenance Due Date Last Done Comments DTAP/TDAP/TD VACCINES (1 - Tdap) 1973 FIT-DNA Q 3 years 11/27/1999 FIT/FOBT Q 1 year 11/27/1999 Flex Sig/CT Colonography Q 5 years 11/27/1999 PNEUMOCOCCAL VACCINE 50+ YEA RS (1 of 1 - PCV) 2004 ZOSTER VACCINE (1 of 2) 2004 RSV VACCINE (60+ or ) (1 - Risk 60-74 years 1-dose series) 2014 BREAST CANCER SCREENING 12/22/2016 12/23/2015, 11/06 OSTEOPOROSIS SCREENING 08/30/2023 08/30/2018, 2018 INFLUENZA VACCINE (#1) 2025 05/12/2013 COLORECTAL SCREENING 08/28/2026 08/28/2016 Colorectal Cancer Screening 08/28/2026 Medical Devices Implanted Type Area Photoresist Contact Printer Device Identifier Shelf Expiration Date Model / Serial / Lot Cement Palacos Sgl [id number] - [id number] Implanted:Qty: 1 on 04/02/2013 Cement Left: Knee [employer] 11/05/2017 00-1112-14 0- / / [id number] Bearing Ruthie Mathew Md Sz [id number] - [id number] Implanted:Qty: 1 on 04/02/2013 Knee Left: Knee [employer] 07/08/2016 [id number] / / [id number] Tray Tib [place] Uni Szb Lm [id number] - [id number] Implanted:Qty: 1 on 04/02/2013 Knee Left: Knee [employer] 07/08/2022 [id number] / / [id number] [place] Partial Knee System, Cemented Twin Pegged Femoral Implanted:Qty: 1 on 04/02/2013 by Jean-Paul Kirkland MD Left: Knee [employer] 10/06/2022 [id number] / / [id number] Insurance MEDICARE PART A AND B [facility] Care Teams Senior Salesforce Developer Relationship Specialty Start Date End Date Jayesh Krueger MD [address] [place] [address] PCP - General 10/21/20
--- OUTSIDE RECORDS SUMMARY | 2025-01-26 13:26 | XMS_ITS | Encounter Summary ---
Author Organization [facility] Address [address] Attn: [place] [address] Care Team Providers Care Syrup Maker Cook Name Role Phone Jayesh Krueger MD Primary Care Provider [phone] Encounter Details Date Type Department Care Team (Late st Contact Info) Description 03/05/2000 Outpatient Historical Thmoas Dailey MD [address] [place] [address] Social History Tobacco Use Types Packs/Day Years Used Date Smoking Tobacco: Never Assessed Comments Unknown Sex and Gender Information Value Date Recorded Sex Assigned at Not on file Legal Sex Female 5:34 AM STONE HAND Gender Identity Not on file Sexual Orientation Not on file documented as of this encounter Plan of Treatment Not on file documented as of this encounter Visit Diagnoses Not on filedocumented in this encounter Care Teams Syrup Maker Cook Relationship Specialty Start Date End Date Jayesh Krueger MD [address] [place] [address] PCP - General Internal Medicine 12/19/16 documented as of this encounter
--- OUTSIDE RECORDS SUMMARY | 2025-01-26 13:26 | XMS_ITS | Clinical Summary ---
Author Organization [facility] Address [address] [facility] [place] [address] Care Team Providers Care Mobile Marketing Manager Name Role Phone Jayesh Krueger MD Primary Care Provider [phone] Allergies Active Allergy Reactions Criticality Noted Date Comments Azithromycin Hives,Itching High 08/19/2009 Lisinopril Swelling High 08/19/2009 Lips/tongue Medications duloxetine (CYMBALTA) 60 mg Oral CpDR Take 60 mg by mouth daily. Active diazepam (VALIUM) 10 mg Oral tablet Take 10 mg by mouth daily at bedtime. Active glimepiride (AMARYL) 4 mg Oral tablet Take 4 mg by mouth 2 times daily. Active GLUCOSAMINE HCL/CHONDR FLORES A NA (GLUCOSAMINE-CH ONDROITIN) 1,500-1,200 mg/30 mL Oral Liqd Take 1 Tab by mouth 2 times daily. Active cetirizine (ZYRTEC) 10 mg Oral tablet Take 1 Tab by mouth daily. Active ziprasidone (GEODON) 80 mg Oral Cap Take 1-2 Caps by mouth daily at bedtime. Active potassium chloride SR (K-DUR) 20 mEq Oral tablet Take 1 Tab by mouth daily. Active aspirin (ASPIRIN EC) 81 mg Tablet, Delayed Release (E.C.) Take 1 Tab by mouth daily. 3 Tab 1 06/10/2013 Active omeprazole (PRILOSEC) 20 mg Capsule, Delayed Release(E.C.) 12/17/2013 Activ e cyclobenzaprine (FLEXERIL) 10 mg tablet 11/28/2016 Active LANTUS 100 unit/mL vial 11/27/2016 Active lamoTRIgine (LaMICtal) 200 mg tablet 11/13/2016 Active levothyroxine 200 mcg tablet 12/18/2016 Acti ve propranolol (INDERAL) 80 mg tablet 11/21/2016 Active spironolactone (ALDACTONE) 25 mg tablet 11/13/2016 Active BD INSULIN SYRINGE ULTRA-FINE 1/2 mL 30 gauge x 1/2 Syringe 12/08/2016 Active temazepam (RESTORIL) 30 mg capsule 11/07/2016 Active topiramate (TOPAMAX) 100 mg tablet 12/09/2016 Active topiramate (TOPAMAX) 200 mg tablet 10/03/2016 Active ezetimibe (ZETIA) 10 mg tablet 03/08/2017 Active fludrocortisone (FLORINEF) 0.1 mg tablet 03/07/2017 Active metFORMIN (GLUCOPHAGE) 1,000 mg tablet 01/16/2017 Act dez acetaminophen (TYLENOL) 500 mg tablet Take 1,000 mg by mouth. Active fexofenadine-ps eudoephedrine SR 12 hour (MANDO-D) 60-120 mg tablet Take 1 Tablet by mouth. 11/04/2018 Active pregabalin (LYRICA) 150 mg Capsule Take 1 Capsule by mouth 2 times daily. 08/18/2018 Active QUEtiapine (SEROquel) 100 mg tablet TK 3 TS PO HS 04/13/2020 Active multivitamins with minerals Tablet Take 1 Tablet by mouth. Active HYDROcodone-amparo taminophen (NORCO) 5-325 mg tabletIndicatio ns:Acute pain of right shoulder,[place] fracture of shoulder, right, closed, initial encounter Take 1 Tablet by mouth every 6 hours as needed for Pain, Moderate. Max Daily Amount: 4 Tablets 28 Tablet 04/30/2020 Active Active Problems Problem Noted Date Diagnosed Date Abnormal cardiovascular stress test 06/10/2013 S/P medial unicompartmental knee arthroplasty Degenerative arthritis of left knee 04/02/2013 Old myocardial infarction 05/15/2012 H/O: CVA (cardiovascular accident) 04/13/2011 T.I.A. 10/25/2009 Type II or unspecified type diabetes mellitus without mention of complication, uncontrolled 08/19/2009 Unspecified essential hypertension 08/19/2009 Other and unspecified hyperlipidemia 08/19/2009 CAD (coronary artery disease) 08/19/2009 Immunizations Immunization Administration Dates Next Due Influenza Seasonal Unspecified Formulation IM Family History Medical History Relation Name Comments Heart Disease Mother Relation Name Status Comments Father Mother Social History Tobacco Use Types Packs/Day Years Used Date Smoking Tobacco: Never Smokeless Tobacco: Never Alcohol Use Standard Drinks/Week Comments No 0 (1 standard drink = 0.6 oz pur e alcohol) Comments No Sex and Gender Information Value Date Recorded Sex Assigned at Not on file Legal Sex Female 5:34 AM STACKER ATTENDANT Gender Identity Not on file Sexual Orientation Not on file Occupation Industry Job Start Date Job End Date Not on file Not on file Not on file Not on file Last Filed Vital Signs Vital Sign Reading Time Taken Comments Blood Pressure 136/76 04/30/2020 8:37 AM CDT Pulse 72 04/30/2020 8:37 AM CDT Temperature 36.4 C (97.5 F) 06/10/2013 9:02 AM STACKER ATTENDANT Respiratory Rate 11 06/10/2013 4:00 PM STACKER ATTENDANT Oxygen Saturation 95% 06/10/2013 4:00 PM STACKER ATTENDANT Inhaled Oxygen Concentration - - Weight 85.3 kg (188 lb) 04/30/2020 8:37 AM CDT Height 167.6 cm (5' 6 ) 04/30/2020 8:37 AM CDT Body Mass Index 30.34 04/30/2020 8:37 AM CDT Plan of Treatment Health Maintenance Due Date Last Done Comments DTAP/TDAP/TD VACCINES (1 - Tdap) 1973 PNEUMOCOCCAL VACCINE 50+ YEA RS (1 of 2 - PCV) 1973 BREAST CANCER SCREENING 1994 COLORECTAL SCREENING 11/27/1999 Colorectal Cancer Screening 11/27/1999 FIT-DNA Q 3 years 11/27/1999 FIT/FOBT Q 1 year 11/27/1999 Flex Sig/CT Colonography Q 5 years 11/27/1999 DIABETES ANNUAL RETINAL EXAM 10/18/2003 10/17/2002 ZOSTER VACCINE (1 of 2) 2004 DIABETES MICROALBUMIN ANNUAL SCREEN 12/13/201012/13 LDL CHOLESTEROL ANNUAL 12/13/2010 12/13/2009, 2009 RSV VACCINE (60+ or ) (1 - Risk 60-74 years 1-dose series) 2014 DIABETES HBA1C Q 6 MONTHS 05/24/20192018, 12/13/2009, 07/29/2009 DIABETES ANNUAL FOOT EXAM 09/02/2019 09/02/2018 OSTEOPOROSIS SCREENING 11/27/2019 INFLUENZA VACCINE (#1) 2025 05/12/2013 Medical Devices Implanted Type Area Muck Miner Blasting Device Identifier Shelf Expiration Date Model / Serial / Lot Cement Palacos Sgl [id number] - [id number] Implanted:Qty: 1 on 04/02/2013 at [facility] Cement Left: Knee [employer] 11/05/2017 [id number] / / [id number] Tray Tib [place] Uni Szb Lm [id number] - [id number] Implanted:Qty: 1 on 04/02/2013 at [facility] Knee Left: Knee [employer] 07/08/2022 [id number] / / [id number] Bearing Ruthie Mathew Md Sz 5 [id number] - [id number] Implanted:Qty: 1 on 04/02/2013 at [facility] Knee Left: Knee [employer] 07/08/2016 [id number] / / [id number] [place] Partial Knee System, Cemented Twin Pegged Femoral Implanted:Qty: 1 on 04/02/2013 by Jean-Paul Kirkland MD at [facility] Left: Knee [employer] 10/06/2022 [id number] / / [id number] Procedures Procedure Name Priority Date/Time Associated Diagnosis Comments MICROALBUMIN/CREATI NINE RATIO, RANDOM UR Routine 12/13/2009 9:15 AM CDT LIPID PANEL Routine 12/13/2009 9:12 AM CDT Other and Unspecified Hyperlipidemia DM w/o Complication Type II, Uncontrolled Unspecified Hypothyroidism HEMOGLOBIN A1C Routine 12/13/2009 9:12 AM CDT DM w/o Complication Type II, Uncontrolled Other and Unspecified Hyperlipidemia Unspecified Hypothyroidism from Last 3 Months or Most Recently Relevant to Health Maintenance Results * MICROALBUMIN/CREATININE RATIO, RANDOM UR (12/13/2009 9:15 AM CDT) MICROALBUMIN, URINE 0.2 mg/dL [facility] Comment: Unable to flag abnormal result(s), please refer to reference range(s) below: Reference Range: Not established Creatinine, Urine 37.9 20 - 320 mg/dL [facility] MICROALBUMIN/CREA T RATIO, UR 5 <30.0 mcg/mg Cr [facility] Comment: The ADA (Diabetes Care 26: S94-S98, 2003) defines abnormalities in albumin excretion as follows: Category Result (mcg/mg creatinine) Normal <30 Microalbuminuria 30-299 Clinical albuminuria > or = 300 The ADA recommends that at least two of three specimens collected within a 3-6 month period be abnormal before considering a patient to be within a diagnostic category. Test Performed by [facility], [address] [place] [address] Leonel Jarquin M.D., Ph.D., Director of Laboratories , CLIA [id number] 12/13/2009 9:15 AM CDT 12/13/2009 10:51 AM CDT Comment:URINE us Brice VARGAS URINE ORDERABLES Final Resul t Performing Organization Address [facility] Phone Number INTERFACE SYSTEM Refer to clinic/hospital department [facility] CLIA# [id number] [facility] [place] [address] * (ABNORMAL) HEMOGLOBIN A1C (12/13/2009 9:12 AM CDT) HEMOGLOBIN A1C 7.7(H) 4.0 - 6.0 %A1C [facility] Blood specimen (specimen) 12/13/2009 9:12 AM CDT 12/13/2009 9:26 AM CDT us Brice VARGAS CHEMISTRY ORDERABLES Final R esult Performing Organization Address [facility] Phone Number INTERFACE SYSTEM Refer to clinic/hospital department [facility] CLIA# [id number] [address] [place] [address] * (ABNORMAL) LIPID PANEL (12/13/2009 9:12 AM CDT) CHOLESTEROL 121 0 - 200 mg/dL [facility] TRIGLYCERIDE 291(H) 0 - 150 mg/dL [facility] HDL 16(L) 40 - 60 mg/dL [facility] LDL CALCULATED 47 0 - 100 mg/dL [facility] Comment: Calculated LDL Reference: <100 Optimal 100-129 Near Optimal 130-159 Borderline High >160 High Risk CALCULATED TOTAL CHOLESTEROL TO HDL RATIO 7.56(H) 3.27 - 4.44 [facility] Blood specimen (specimen) 12/13/2009 9:12 AM CDT 12/13/2009 9:26 AM CDT Brice VARGAS CHEMISTRY ORDERABLES Edited INTERFACE SYSTEM Refer to clinic/hospital department [facility] CLIA# [id number] [facility] [place] [address] from Last 3 Months or Most Recently Relevant to Health Maintenance [place] [address] MEDICARE PART A AND B [place] [place] Advance Directives For more information, please contact: [phone] * Full Code (Latest Code Status on File) Date Activated Date Inactivated Comments 04/02/2013 10:34 AM 04/03/2013 5:21 PM * Full Code Date Activated Date Inactivated Comments 04/02/2013 6:45 AM 04/02/2013 10:34 AM Care Teams Mobile Marketing Manager Relationship Specialty Start Date End Date Jaeysh Krueger MD [address] [place] [address] PCP - General Internal Medicine 12/19/16
--- OUTSIDE RECORDS SUMMARY | 2025-01-26 13:26 | XMS_ITS | Encounter Summary ---
Author Organization [facility] Address [address] [place] [address] Care Team Providers Care Drawing Checker Name Role Phone Jayesh Krueger MD Primary Care Provider [phone] Encounter Details Date Type Department Care Team (Latest Contact Info) Description 12/10/2003 Outpatient Historical [facility] [address] [place] [address] Thomas Dailey MD [address] [place] [address] LUMBOSACRAL NEURITIS NOS (Primary Dx) Social History Tobacco Use Types Packs/Day Years Used Date Smoking Tobacco: Never Assessed Comments Unknown Sex and Gender Information Value Date Recorded Sex Assigned at Not on file Legal Sex Female 5:34 AM CASE LINER Gender Identity Not on file Sexual Orientation Not on file documented as of this encounter Plan of Treatment Not on file documented as of this encounter Visit Diagnoses Diagnosis Thoracic or lumbosacral neuritis or radiculitis, unspecified- Primary documented in this encounter Care Teams Drawing Checker Relationship Specialty Start Date End Date Jayesh Krueger MD [address] [place] [address] PCP - General Internal Medicine 12/19/16 documented as of this encounter
--- OUTSIDE RECORDS SUMMARY | 2025-01-26 13:26 | XMS_ITS | Encounter Summary ---
Author Organization [facility] Address [address] [facility] Attn: Epic Prelude ADT [place]AH[place] [address] Care Team Providers Care Business Owner/Engineer Name Role Phone Jayesh Krueger MD Primary Care Provider [phone] Encounter Details Date Type Department Care Team (Late st Contact Info) Description 02/06/2001 Outpatient Historical Sotero Ortiz MD NO ADDRESS ON FILE Social History Tobacco Use Types Packs/Day Years Used Date Smoking Tobacco: Never Assessed Comments Unknown Sex and Gender Information Value Date Recorded Sex Assigned at Not on file Legal Sex Female 5:34 AM CABLE RESPOOLER Gender Identity Not on file Sexual Orientation Not on file documented as of this encounter Plan of Treatment Not on file documented as of this encounter Visit Diagnoses Not on filedocumented in this encounter Care Teams Business Owner/Engineer Relationship Specialty Start Date End Date Jayesh Krueger MD [address] [place] [address] PCP - General Internal Medicine 12/19/16 documented as of this encounter
--- OUTSIDE RECORDS SUMMARY | 2025-01-26 13:26 | XMS_ITS | Encounter Summary ---
Author Organization [facility] Address [address] [place] [address] Care Team Providers Care Platen Press Operator Name Role Phone Jayesh Krueger MD Primary Care Provider [phone] Encounter Details Date Type Department Care Team (Latest Contact Info) Description 12/13/1999 Outpatient Historical [facility] Nasir Uriostegui MD NO ADDRESS ON FILE Degeneration of cervical intervertebral disc (Primary Dx) Social History Tobacco Use Types Packs/Day Years Used Date Smoking Tobacco: Never Assessed Comments Unknown Sex and Gender Information Value Date Recorded Sex Assigned at Not on file Legal Sex Female 5:34 AM BEHAVIORAL TECHNICIAN Gender Identity Not on file Sexual Orientation Not on file documented as of this encounter Plan of Treatment Not on file documented as of this encounter Visit Diagnoses Diagnosis Degeneration of cervical intervertebral disc- Primary documented in this encounter Care Teams Platen Press Operator Relationship Specialty Start Date End Date Jayesh Krueger MD [address] [place] [address] PCP - General Internal Medicine 12/19/16 documented as of this encounter
--- OUTSIDE RECORDS SUMMARY | 2025-01-26 13:26 | XMS_ITS | Encounter Summary ---
Author Organization [facility] Address [address] [place] [address] Care Team Providers Care Laborer Brush Clearing Name Role Phone Jayesh Krueger MD Primary Care Provider [phone] Encounter Details Date Type Department Care Team (Latest Contact Info) Description 05/03/2004 Outpatient Historical [facility] Endocrinology-[facility] [address] [place] [address] Chin Patel MD NO ADDRESS ON FILE DIABETES MELLITUS TYPE II-UNCOMPL (CMS/HCC) (Primary Dx); HYPERLIPIDEMIA NEC/NOS; HYPERTENSION NOS; HYPOTHYROIDISM NOS Social History Tobacco Use Types Packs/Day Years Used Date Smoking Tobacco: Never Assessed Comments Unknown Sex and Gender Information Value Date Recorded Sex Assigned at Not on file Legal Sex Female 5:34 AM OIL PROCESS STILLMAN Gender Identity Not on file Sexual Orientation Not on file documented as of this encounter Plan of Treatment Not on file documented as of this encounter Visit Diagnoses Diagnosis Type II or unspecified type diabetes mellitus without mention of complication, not stated as uncontrolled- Primary Other and unspecified hyperlipidemia Unspecified essential hypertension Unspecified hypothyroidism documented in this encounter Care Teams Laborer Brush Clearing Relationship Specialty Start Date End Date Jayesh Krueger MD [address] [place] [address] PCP - General Internal Medicine 12/19/16 documented as of this encounter
--- OUTSIDE RECORDS SUMMARY | 2025-01-26 13:26 | XMS_ITS | Encounter Summary ---
Author Organization [facility] Address [address] [place] [address] Care Team Providers Care Hogshead Dumper Name Role Phone Jayesh Krueger MD Primary Care Provider [phone] Encounter Details Date Type Department Care Team (Latest Contact Info) Description 11/06/2005 Outpatient Historical [facility] Endocrinology-[facility] [address] [place] [address] Chin Patel MD NO ADDRESS ON FILE DM w/o Complication Type II (CMS/HCC) (Primary Dx); Other and Unspecified Hyperlipidemia; Unspecified Essential Hypertension Social History Tobacco Use Types Packs/Day Years Used Date Smoking Tobacco: Never Assessed Comments Unknown Sex and Gender Information Value Date Recorded Sex Assigned at Not on file Legal Sex Female 5:34 AM SHOW JUMPING INSTRUCTOR Gender Identity Not on file Sexual Orientation Not on file documented as of this encounter Plan of Treatment Not on file documented as of this encounter Visit Diagnoses Diagnosis Type II or unspecified type diabetes mellitus without mention of complication, not stated as uncontrolled- Primary Other and unspecified hyperlipidemia Unspecified essential hypertension documented in this encounter Care Teams Hogshead Dumper Relationship Specialty Start Date End Date Jayesh Krueger MD [address] [place] [address] PCP - General Internal Medicine 12/19/16 documented as of this encounter
--- OUTSIDE RECORDS SUMMARY | 2025-01-26 13:26 | XMS_ITS | Encounter Summary ---
Author Organization [facility] Address [address] [place] [address] Care Team Providers Care Receptionist/Telephone Operator Name Role Phone Jayesh Krueger MD Primary Care Provider [phone] Encounter Details Date Type Department Care Team (Latest Contact Info) Description 02/17/2003 Outpatient Historical [facility] [address] [place] [address] Thomas Dailey MD [address] [place] [address] SURGERY FOLLOWUP, OTHER (Primary Dx) Social History Tobacco Use Types Packs/Day Years Used Date Smoking Tobacco: Never Assessed Comments Unknown Sex and Gender Information Value Date Recorded Sex Assigned at Not on file Legal Sex Female 5:34 AM DIRECTOR OF UNDERGRADUATE ADMISSIONS Gender Identity Not on file Sexual Orientation Not on file documented as of this encounter Plan of Treatment Not on file documented as of this encounter Visit Diagnoses Diagnosis Follow-up examination, following other surgery- Primary documented in this encounter Care Teams Receptionist/Telephone Operator Relationship Specialty Start Date End Date Jayesh Krueger MD [address] [place] [address] PCP - General Internal Medicine 12/19/16 documented as of this encounter
--- OUTSIDE RECORDS SUMMARY | 2025-01-26 13:26 | XMS_ITS | Encounter Summary ---
Author Organization [facility] Address [address] [place] [address] Care Team Providers Care Biostatistics Director Name Role Phone Jayesh Krueger MD Primary Care Provider [phone] Encounter Details Date Type Department Care Team (Late st Contact Info) Description 02/06/2001 Outpatient Historical [facility] [address] [place] [address] Sotero Ortiz MD NO ADDRESS ON FILE Myalgia and myositis, unspecified (Primary Dx); Headache(784.0) Social History Tobacco Use Types Packs/Day Years Used Date Smoking Tobacco: Never Assessed Comments Unknown Sex and Gender Information Value Date Recorded Sex Assigned at Not on file Legal Sex Female 5:34 AM NEPHROLOGY NURSE Gender Identity Not on file Sexual Orientation Not on file documented as of this encounter Plan of Treatment Not on file documented as of this encounter Visit Diagnoses Diagnosis Myalgia and myositis, unspecified- Primary Mylagia and myositis, unspecified Headache(784.0) Headache documented in this encounter Care Teams Biostatistics Director Relationship Specialty Start Date End Date Jayesh Krueger MD [address] [place] [address] PCP - General Internal Medicine 12/19/16 documented as of this encounter
--- OUTSIDE RECORDS SUMMARY | 2025-01-26 13:26 | XMS_ITS | Encounter Summary ---
Author Organization [facility] Address [address] [facility] Attn: [place] [address] Care Team Providers Care Mechanical System Technician Name Role Phone Jayesh Krueger MD Primary Care Provider [phone] Encounter Details Date Type Department Care Team (Late st Contact Info) Description 02/27/2000 Outpatient Historical Thomas Dailey MD [address] [place] [address] Social History Tobacco Use Types Packs/Day Years Used Date Smoking Tobacco: Never Assessed Comments Unknown Sex and Gender Information Value Date Recorded Sex Assigned at Not on file Legal Sex Female 5:34 AM CHIEF OF STAFF DOCTOR Gender Identity Not on file Sexual Orientation Not on file documented as of this encounter Plan of Treatment Not on file documented as of this encounter Visit Diagnoses Not on filedocumented in this encounter Care Teams Mechanical System Technician Relationship Specialty Start Date End Date Jayesh Krueger MD [address] [place] [address] PCP - General Internal Medicine 12/19/16 documented as of this encounter
--- OUTSIDE RECORDS SUMMARY | 2025-01-26 13:26 | XMS_ITS | Encounter Summary ---
Author Organization [facility] Address [address] [place] [address] Care Team Providers Care Healthcare Advisory Services Manager Name Role Phone Jayesh Krueger MD Primary Care Provider [phone] Encounter Details Date Type Department Care Team (Latest Contact Info) Description 11/11/2002 Outpatient Historical [facility] Thomas Dailey MD [address] [place] [address] LUMBAGO (Primary Dx) Social History Tobacco Use Types Packs/Day Years Used Date Smoking Tobacco: Never Assessed Comments Unknown Sex and Gender Information Value Date Recorded Sex Assigned at Not on file Legal Sex Female 5:34 AM DIRECTOR OF MARKETING COMMUNICATIONS Gender Identity Not on file Sexual Orientation Not on file documented as of this encounter Plan of Treatment Not on file documented as of this encounter Visit Diagnoses Diagnosis Lumbago- Primary documented in this encounter Care Teams Healthcare Advisory Services Manager Relationship Specialty Start Date End Date Jayesh Krueger MD [address] [place] [address] PCP - General Internal Medicine 12/19/16 documented as of this encounter
--- OUTSIDE RECORDS SUMMARY | 2025-01-26 13:26 | XMS_ITS | Encounter Summary ---
Author Organization [facility] Address [address] [place] [address] Care Team Providers Care Cupola Patcher Name Role Phone Jayesh Krueger MD Primary Care Provider [phone] Encounter Details Date Type Department Care Team (Latest Contact Info) Description 12/31/2003 Outpatient Historical [facility]ology-[facility] [address] [place] [address] Chin Patel MD NO ADDRESS ON FILE DIABETES UNCOMPL ADULT-TYPE II (CMS/[facility]) (Primary Dx); HYPERLIPIDEMIA NEC/NOS; HYPERTENSION NOS; HYPOTHYROIDISM NOS Social History Tobacco Use Types Packs/Day Years Used Date Smoking Tobacco: Never Assessed Comments Unknown Sex and Gender Information Value Date Recorded Sex Assigned at Not on file Legal Sex Female 5:34 AM CABLE MAINTAINER Gender Identity Not on file Sexual Orientation Not on file documented as of this encounter Plan of Treatment Not on file documented as of this encounter Visit Diagnoses Diagnosis Type II or unspecified type diabetes mellitus without mention of complication, not stated as uncontrolled- Primary Other and unspecified hyperlipidemia Unspecified essential hypertension Unspecified hypothyroidism documented in this encounter Care Teams Cupola Patcher Relationship Specialty Start Date End Date Jayesh Krueger MD [address] [place] [address] PCP - General Internal Medicine 12/19/16 documented as of this encounter
--- OUTSIDE RECORDS SUMMARY | 2025-01-26 13:26 | XMS_ITS | Encounter Summary ---
Author Organization [facility] Address [address] [place] [address] Care Team Providers Care Legal Transcriber Name Role Phone Jayesh Krueger MD Primary Care Provider [phone] Encounter Details Date Type Department Care Team (Late st Contact Info) Description 09/06/2003 Emergency [facility] Emergency Department [address] [place] [address] Leonel Basurto DO NO ADDRESS ON FILE TRANSIENT CEREBRAL ISCHEMIA NOS (Primary Dx) Social History Tobacco Use Types Packs/Day Years Used Date Smoking Tobacco: Never Assessed Comments Unknown Sex and Gender Information Value Date Recorded Sex Assigned at Not on file Legal Sex Female 5:34 AM LOAN OPERATIONS MANAGER Gender Identity Not on file Sexual Orientation Not on file documented as of this encounter Plan of Treatment Not on file documented as of this encounter Visit Diagnoses Diagnosis Unspecified transient cerebral ischemia- Primary documented in this encounter Care Teams Legal Transcriber Relationship Specialty Start Date End Date Jayesh Krueger MD [address] [place] [address] PCP - General Internal Medicine 12/19/16 documented as of this encounter
--- OUTSIDE RECORDS SUMMARY | 2025-01-26 13:26 | XMS_ITS | Encounter Summary ---
Author Organization [facility] Address [address] [facility] Attn: [place] [address] Care Team Providers Care Virtual Reality Specialist Name Role Phone Jayesh Krueger MD Primary Care Provider [phone] Encounter Details Date Type Department Care Team (Late st Contact Info) Description 01/25/2000 Outpatient Historical Thomas Dailey MD [address] [place] [address] Social History Tobacco Use Types Packs/Day Years Used Date Smoking Tobacco: Never Assessed Comments Unknown Sex and Gender Information Value Date Recorded Sex Assigned at Not on file Legal Sex Female 5:34 AM OUTSOLE PARAFFINER Gender Identity Not on file Sexual Orientation Not on file documented as of this encounter Plan of Treatment Not on file documented as of this encounter Visit Diagnoses Not on filedocumented in this encounter Care Teams Virtual Reality Specialist Relationship Specialty Start Date End Date Jayesh Krueger MD [address] [place] [address] PCP - General Internal Medicine 12/19/16 documented as of this encounter
--- OUTSIDE RECORDS SUMMARY | 2025-01-26 13:26 | XMS_ITS | Encounter Summary ---
Author Organization [facility] Address [address] [facility] Attn: Epic Prelude ADT [place] [address] Care Team Providers Care Ophthalmic Medical Assistant Name Role Phone Jayesh Krueger MD Primary Care Provider [phone] Encounter Details Date Type Department Care Team (Late st Contact Info) Description 06/20/2000 Outpatient Historical Non-Staff, Physician NO ADDRESS ON FILE Social History Tobacco Use Types Packs/Day Years Used Date Smoking Tobacco: Never Assessed Comments Unknown Sex and Gender Information Value Date Recorded Sex Assigned at Not on file Legal Sex Female 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
--- OUTSIDE RECORDS SUMMARY | 2025-01-26 13:26 | XMS_ITS | Encounter Summary ---
Author Organization [facility] Address [address] [place] [address] Care Team Providers Care Compliance Associate Name Role Phone Jayesh Krueger MD Primary Care Provider Encounter Details Date Type Department Care Team (Latest Contact Info) Description 05/08/2005 Outpatient Historical [facility] Endocrinology-[facility] [place] [address] [place] [address] Chin Patel MD NO ADDRESS ON FILE DIABETES MELLITUS TYPE II-UNCOMPL (CMS/HCC) (Primary Dx); HYPERLIPIDEMIA NEC/NOS; HYPERTENSION NOS Social History Tobacco Use Types Packs/Day Years Used Date Smoking Tobacco: Never Assessed Comments Unknown Sex and Gender Information Value Date Recorded Sex Assigned at Not on file Legal Sex Female 5:34 AM GARNISHMENT SPECIALIST Gender Identity Not on file Sexual Orientation Not on file documented as of this encounter Plan of Treatment Not on file documented as of this encounter Visit Diagnoses Diagnosis Type II or unspecified type diabetes mellitus without mention of complication, not stated as uncontrolled- Primary Other and unspecified hyperlipidemia Unspecified essential hypertension documented in this encounter Care Teams Compliance Associate Relationship Specialty Start Date End Date Jayesh Krueger MD [address] [place] [address] PCP - General Internal Medicine 12/19/16 documented as of this encounter
--- OUTSIDE RECORDS SUMMARY | 2025-01-26 13:26 | XMS_ITS | Encounter Summary ---
Author Organization [facility] Address [address] [facility] Attn: [place] [id number] Care Team Providers Care Technical Supervisor Name Role Phone Jayesh Krueger MD Primary Care Provider [phone] Encounter Details Date Type Department Care Team (Late st Contact Info) Description 04/13/2000 Inpatient Historical Thomas Dailey MD [address] 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
--- OUTSIDE RECORDS SUMMARY | 2025-01-26 13:26 | XMS_ITS | Encounter Summary ---
Author Organization [facility] Address [address] [place] [address] Care Team Providers Care Conduit Cleaner Name Role Phone Jayesh Krueger MD Primary Care Provider [phone] Encounter Details Date Type Department Care Team (Latest Contact Info) Description 07/05/2005 Outpatient Historical [facility] Imaging Services-Rajesh Cleary [place] [address] [place] [address] Anthony Andrews, DPM [address] [place] [address] OTHER HAMMER TOE (Primary Dx) Social History Tobacco Use Types Packs/Day Years Used Date Smoking Tobacco: Never Assessed Comments Unknown Sex and Gender Information Value Date Recorded Sex Assigned at Not on file Legal Sex Female 5:34 AM PUBLIC HEALTH ANALYST Gender Identity Not on file Sexual Orientation Not on file documented as of this encounter Plan of Treatment Not on file documented as of this encounter Visit Diagnoses Diagnosis Other hammer toe (acquired)- Primary documented in this encounter Care Teams Conduit Cleaner Relationship Specialty Start Date End Date Jayesh Krueger MD [address] [place] [address] PCP - General Internal Medicine 12/19/16 documented as of this encounter
--- OUTSIDE RECORDS SUMMARY | 2025-01-26 13:26 | XMS_ITS | Encounter Summary ---
Author Organization [facility] Address [address] [place] [address] Care Team Providers Care Launch Operator Name Role Phone Jayesh Krueger MD Primary Care Provider [phone] Encounter Details Date Type Department Care Team (Latest Contact Info) Description 03/20/2006 Outpatient Historical [facility] Endocrinology-[facility] [place] [address] [address] Brice [place], [place] [address] [place] [address] DM w/o Complication Type II, Uncontrolled (Primary Dx); Other and Unspecified Hyperlipidemia; Unspecified Essential Hypertension Social History Tobacco Use Types Packs/Day Years Used Date Smoking Tobacco: Never Assessed Comments Unknown Sex and Gender Information Value Date Recorded Sex Assigned at Not on file Legal Sex Female 5:34 AM EMERGENCY COMMUNICATIONS DISPATCHER Gender Identity Not on file Sexual Orientation Not on file documented as of this encounter Plan of Treatment Not on file documented as of this encounter Visit Diagnoses Diagnosis Type II or unspecified type diabetes mellitus without mention of complication, uncontrolled- Primary Other and unspecified hyperlipidemia Unspecified essential hypertension documented in this encounter Care Teams Launch Operator Relationship Specialty Start Date End Date Jayesh Krueger MD [address] [place] [address] PCP - General Internal Medicine 12/19/16 documented as of this encounter
--- OUTSIDE RECORDS SUMMARY | 2025-01-26 13:26 | XMS_ITS | Encounter Summary ---
Author Organization [facility] Address [address] [place] [address] Care Team Providers Care Display Fabricator Name Role Phone Jayesh Krueger MD Primary Care Provider [phone] Encounter Details Date Type Department Care Team (Latest Contact Info) Description 01/12/2003 Inpatient Historical [facility] Operating Room [address] [place] [id number] Thomas Dailey MD [address] [place] [address] LUMB/LUMBOSAC DISC DEGEN (Primary Dx) Social History Tobacco Use Types Packs/Day Years Used Date Smoking Tobacco: Never Assessed Comments Unknown Sex and Gender Information Value Date Recorded Sex Assigned at Not on file Legal Sex Female 5:34 AM FROG CATCHER Gender Identity Not on file Sexual Orientation Not on file documented as of this encounter Plan of Treatment Not on file documented as of this encounter Visit Diagnoses Diagnosis Degeneration of lumbar or lumbosacral intervertebral disc- Primary documented in this encounter Care Teams Display Fabricator Relationship Specialty Start Date End Date Jayesh Krueger MD [address] [place] [address] PCP - General Internal Medicine 12/19/16 documented as of this encounter
--- OUTSIDE RECORDS SUMMARY | 2025-01-26 13:26 | XMS_ITS | Encounter Summary ---
Author Organization [facility] Address [address] [place] [address] Care Team Providers Care Parks Recreation Director Name Role Phone Jayesh Krueger MD Primary Care Provider [phone] Encounter Details Date Type Department Care Team (Latest Contact Info) Description 10/31/2006 Outpatient Historical [facility] Endocrinology-[facility] [place] [address] [address] Brice [place], [place] [address] [place] [address] DM w/o Complication Type II (CMS/HCC) (Primary Dx); Other and Unspecified Hyperlipidemia; Unspecified Essential Hypertension Social History Tobacco Use Types Packs/Day Years Used Date Smoking Tobacco: Never Assessed Comments Unknown Sex and Gender Information Value Date Recorded Sex Assigned at Not on file Legal Sex Female 5:34 AM PLASTIC MOLDER Gender Identity Not on file Sexual Orientation Not on file documented as of this encounter Plan of Treatment Not on file documented as of this encounter Visit Diagnoses Diagnosis Type II or unspecified type diabetes mellitus without mention of complication, not stated as uncontrolled- Primary Other and unspecified hyperlipidemia Unspecified essential hypertension documented in this encounter Care Teams Parks Recreation Director Relationship Specialty Start Date End Date Jayesh Krueger MD [address] [place] [address] PCP - General Internal Medicine 12/19/16 documented as of this encounter
--- OUTSIDE RECORDS SUMMARY | 2025-01-26 13:26 | XMS_ITS | Encounter Summary ---
Author Organization [facility] Address [address] [place] [address] Care Team Providers Care Heat Treat Technician Name Role Phone Jayesh Krueger MD Primary Care Provider [phone] Encounter Details Date Type Department Care Team (Latest Contact Info) Description 11/04/2004 Outpatient Historical [facility] Endocrinology-[facility] [place] [address] [place] [address] Chin Patel MD NO ADDRESS ON FILE DIABETES MELLITUS TYPE II-UNCOMPL (CMS/HCC) (Primary Dx); HYPERLIPIDEMIA NEC/NOS; THYROTOX NOS NO CRISIS; HYPOTHYROIDISM NOS Social History Tobacco Use Types Packs/Day Years Used Date Smoking Tobacco: Never Assessed Comments Unknown Sex and Gender Information Value Date Recorded Sex Assigned at Not on file Legal Sex Female 5:34 AM RN TRIAGE Gender Identity Not on file Sexual Orientation Not on file documented as of this encounter Plan of Treatment Not on file documented as of this encounter Visit Diagnoses Diagnosis Type II or unspecified type diabetes mellitus without mention of complication, not stated as uncontrolled- Primary Other and unspecified hyperlipidemia Thyrotoxicosis without mention of goiter or other cause, without mention of thyrotoxic crisis or storm Unspecified hypothyroidism documented in this encounter Care Teams Heat Treat Technician Relationship Specialty Start Date End Date Jayesh Krueger MD [address] [place] [address] PCP - General Internal Medicine 12/19/16 documented as of this encounter
--- OUTSIDE RECORDS SUMMARY | 2025-01-26 13:26 | XMS_ITS | Encounter Summary ---
Author Organization [facility] Address [address] [place] [address] Care Team Providers Care Service Team Leader Name Role Phone Jayesh Krueger MD Primary Care Provider [phone] Encounter Details Date Type Department Care Team (Late st Contact Info) Description 10/25/1999 Outpatient Historical [facility] Social History Tobacco Use Types Packs/Day Years Used Date Smoking Tobacco: Never Assessed Comments Unknown Sex and Gender Information Value Date Recorded Sex Assigned at Not on file Legal Sex Female 5:34 AM PICKER Gender Identity Not on file Sexual Orientation Not on file documented as of this encounter Plan of Treatment Not on file documented as of this encounter Visit Diagnoses Not on filedocumented in this encounter Care Teams Service Team Leader Relationship Specialty Start Date End Date Jayesh Krueger MD [address] [place] [address] PCP - General Internal Medicine 12/19/16 documented as of this encounter
--- OUTSIDE RECORDS SUMMARY | 2025-01-26 13:26 | XMS_ITS | Encounter Summary ---
Author Organization [facility] Address [address] [place] [address] Care Team Providers Care Perfect Binder Setter Name Role Phone Jayesh Krueger MD Primary Care Provider [phone] Encounter Details Date Type Department Care Team (Latest Contact Info) Description 06/11/2000 Outpatient Historical [facility] NEUROLOGY Nasir Uriostegui MD NO ADDRESS ON FILE Headache(784.0) (Primary Dx) Social History Tobacco Use Types Packs/Day Years Used Date Smoking Tobacco: Never Assessed Comments Unknown Sex and Gender Information Value Date Recorded Sex Assigned at Not on file Legal Sex Female 5:34 AM FARM APPRAISER Gender Identity Not on file Sexual Orientation Not on file documented as of this encounter Plan of Treatment Not on file documented as of this encounter Visit Diagnoses Diagnosis Headache(784.0)- Primary Headache documented in this encounter Care Teams Perfect Binder Setter Relationship Specialty Start Date End Date Jayesh Krueger MD [address] [place] [address] PCP - General Internal Medicine 12/19/16 documented as of this encounter
--- OUTSIDE RECORDS SUMMARY | 2025-01-26 13:26 | XMS_ITS | Encounter Summary ---
Author Organization [facility] Address [address] [place] [address] Care Team Providers Care Loan Processing Supervisor Name Role Phone Jayesh Krueger MD Primary Care Provider [phone] Encounter Details Date Type Department Care Team (Late st Contact Info) Description 09/01/1999 Outpatient Historical [facility] Cardiac Thoracic Vascular Surg [place] [address] [place] [address] Social History Tobacco Use Types Packs/Day Years Used Date Smoking Tobacco: Never Assessed Comments Unknown Sex and Gender Information Value Date Recorded Sex Assigned at Not on file Legal Sex Female 5:34 AM LEATHER GOODS MAKER Gender Identity Not on file Sexual Orientation Not on file documented as of this encounter Plan of Treatment Not on file documented as of this encounter Visit Diagnoses Not on filedocumented in this encounter Care Teams Loan Processing Supervisor Relationship Specialty Start Date End Date Jayesh Krueger MD [address] [place] [address] PCP - General Internal Medicine 12/19/16 documented as of this encounter
--- OUTSIDE RECORDS SUMMARY | 2025-01-26 13:26 | XMS_ITS | Encounter Summary ---
Author Organization [facility] Address [address] [place] [address] Care Team Providers Care Delivery And Installation Subcontractor Name Role Phone Jayesh Krueger MD Primary Care Provider [phone] Encounter Details Date Type Department Care Team (Latest Contact Info) Description 07/05/2005 Outpatient [facility] Podiatry-Rajesh [facility] [place] [address] [place] [address] Anthony Andrews, DPM [address] [place] [address] OTHER HAMMER TOE (Primary Dx); PERIPH VASCULAR DIS NOS; DIABETES TYPE II W NEURO MANIFESTATIONS (CMS/HCC) Social History Tobacco Use Types Packs/Day Years Used Date Smoking Tobacco: Never Assessed Comments Unknown Sex and Gender Information Value Date Recorded Sex Assigned at Not on file Legal Sex Female 5:34 AM VISITOR SERVICE ASSISTANT Gender Identity Not on file Sexual Orientation Not on file documented as of this encounter Plan of Treatment Not on file documented as of this encounter Visit Diagnoses Diagnosis Other hammer toe (acquired)- Primary Peripheral vascular disease, unspecified Type II or unspecified type diabetes mellitus with neurological manifestations, not stated as uncontrolled(250.60) (CMS/HCC) Type II or unspecified type diabetes mellitus with neurological manifestations, not stated as uncontrolled documented in this encounter Care Teams Delivery And Installation Subcontractor Relationship Specialty Start Date End Date Jayesh Krueger MD [address] [place] [address] PCP - General Internal Medicine 12/19/16 documented as of this encounter
--- OUTSIDE RECORDS SUMMARY | 2025-01-26 13:26 | XMS_ITS | Encounter Summary ---
Author Organization [facility] Address [address] [place] [address] Care Team Providers Care Bellows Assembler Name Role Phone Jayesh Krueger MD Primary Care Provider [phone] Encounter Details Date Type Department Care Team (Late st Contact Info) Description 01/05/2003 Outpatient Historical [facility] Thomas Dailey MD [address] [place] [address] LUMBAGO (Primary Dx) Social History Tobacco Use Types Packs/Day Years Used Date Smoking Tobacco: Never Assessed Comments Unknown Sex and Gender Information Value Date Recorded Sex Assigned at Not on file Legal Sex Female 5:34 AM INDUSTRIAL SEWER Gender Identity Not on file Sexual Orientation Not on file documented as of this encounter Plan of Treatment Not on file documented as of this encounter Visit Diagnoses Diagnosis Lumbago- Primary documented in this encounter Care Teams Bellows Assembler Relationship Specialty Start Date End Date Jayesh Krueger MD [address] [place] [address] PCP - General Internal Medicine 12/19/16 documented as of this encounter
--- OUTSIDE RECORDS SUMMARY | 2025-01-26 13:26 | XMS_ITS | Encounter Summary ---
Author Organization [facility] Address [address] [place] [address] Care Team Providers Care Orthopedic Designer Name Role Phone Jayesh Krueger MD Primary Care Provider [phone] Encounter Details Date Type Department Care Team (Late st Contact Info) Description 01/12/2010 Ancillary Orders [facility] Orthopedics- [address] [place] [address] Jean-Paul Kirkland MD NO ADDRESS ON FILE Pain Social History Tobacco Use Types Packs/Day Years Used Date Smoking Tobacco: Never Alcohol Use Standard Drinks/Week Comments No 0 (1 standard drink = 0.6 oz pur e alcohol) Comments No Sex and Gender Information Value Date Recorded Sex Assigned at Not on file Legal Sex Female 5:34 AM TECHNICAL SALES ENGINEER Gender Identity Not on file Sexual Orientation Not on file documented as of this encounter Plan of Treatment Not on file documented as of this encounter Results * XR KNEE 1 OR 2 VW LEFT (01/12/2010 11:48 AM CDT) Anatomical Region Laterality Modality Lower Extremity Computed Radiogr aphy Narrative 08/03/2011 9:33 AM TECHNICAL SALES ENGINEER AP and lateral radiographs of both knees were obtained. These show mild to moderate degenerative change with medial compartment narrowing. The lateral sides appear relatively unremarkable as do the patellofemoral articulations. Procedure Note Jean-Paul Kirkland MD - 08/03/2011 AP and lateral radiographs of both knees were obtained. These show mild tomoderate degenerative change with medial compartment narrowing. Thelateral sides appear relatively unremarkable as do the patellofemoralarticulations. us Jean-Paul Kirkland MD DIAGNOSTIC IMAGING ORDERABLE S Final Result documented in this encounter Visit Diagnoses Diagnosis Pain Generalized pain documented in this encounter Care Teams Orthopedic Designer Relationship Specialty Start Date End Date Jayesh Krueger MD [address] [place] [address] PCP - General Internal Medicine 12/19/16 documented as of this encounter
--- OUTSIDE RECORDS SUMMARY | 2025-01-26 13:26 | XMS_ITS | Encounter Summary ---
Author Organization [facility] Address [address] [place] [address] Care Team Providers Care Control Supervisor Name Role Phone Jayesh Krueger MD Primary Care Provider [phone] Encounter Details Date Type Department Care Team (Latest Contact Info) Description 11/27/2002 Outpatient Historical [facility] Imaging and Laboratory Services [address] [place] [address] Thomas Dailey MD [address] [place] [address] DISC DIS NEC/NOS-LUMBAR (Primary Dx) Social History Tobacco Use Types Packs/Day Years Used Date Smoking Tobacco: Never Assessed Comments Unknown Sex and Gender Information Value Date Recorded Sex Assigned at Not on file Legal Sex Female 5:34 AM DESIGN SUPERVISOR Gender Identity Not on file Sexual Orientation Not on file documented as of this encounter Plan of Treatment Not on file documented as of this encounter Visit Diagnoses Diagnosis Other and unspecified disc disorder of lumbar region- Primary documented in this encounter Care Teams Control Supervisor Relationship Specialty Start Date End Date Jayesh Krueger MD [address] [place] [address] PCP - General Internal Medicine 12/19/16 documented as of this encounter
--- OUTSIDE RECORDS SUMMARY | 2025-01-26 13:26 | XMS_ITS | Encounter Summary ---
Author Organization [facility] Address [address] [place] [address] Care Team Providers Care Sludge Filtration Attendant Name Role Phone Jayesh Krueger MD Primary Care Provider [phone] Encounter Details Date Type Department Care Team (Latest Contact Info) Description 07/03/[address] [facility] Endocrinology-[facility] [address] [place] [address] Chin Patel MD NO ADDRESS ON FILE DM w/o Complication Type II, Uncontrolled (Primary Dx); Other and Unspecified Hyperlipidemia; Unspecified Essential Hypertension Social History Tobacco Use Types Packs/Day Years Used Date Smoking Tobacco: Never Assessed Comments Unknown Sex and Gender Information Value Date Recorded Sex Assigned at Not on file Legal Sex Female 5:34 AM PASTING MACHINE OFFBEARER Gender Identity Not on file Sexual Orientation Not on file documented as of this encounter Plan of Treatment Not on file documented as of this encounter Visit Diagnoses Diagnosis Type II or unspecified type diabetes mellitus without mention of complication, uncontrolled- Primary Other and unspecified hyperlipidemia Unspecified essential hypertension documented in this encounter Care Teams Sludge Filtration Attendant Relationship Specialty Start Date End Date Jayesh Krueger MD [address] [place] [address] PCP - General Internal Medicine 12/19/16 documented as of this encounter
--- OUTSIDE RECORDS SUMMARY | 2025-01-26 13:26 | XMS_ITS | Encounter Summary ---
Author Organization [facility] Address [address] [place] [address] Care Team Providers Care Lead Burner Helper Name Role Phone Jayesh Krueger MD Primary Care Provider [phone] Encounter Details Date Type Department Care Team (Latest Contact Info) Description 12/25/2002 Outpatient Historical [facility] [address] [place] [address] Thomas Dailey MD [address] [place] [address] PREOP CARDIOVASC EXAM (Primary Dx) Social History Tobacco Use Types Packs/Day Years Used Date Smoking Tobacco: Never Assessed Comments Unknown Sex and Gender Information Value Date Recorded Sex Assigned at Not on file Legal Sex Female 5:34 AM INDUSTRIAL WASTE TREATMENT TECHNICIAN Gender Identity Not on file Sexual Orientation Not on file documented as of this encounter Plan of Treatment Not on file documented as of this encounter Visit Diagnoses Diagnosis Pre-operative cardiovascular examination- Primary documented in this encounter Care Teams Lead Burner Helper Relationship Specialty Start Date End Date Jayesh Krueger MD [address] [place] [address] PCP - General Internal Medicine 12/19/16 documented as of this encounter
--- OUTSIDE RECORDS SUMMARY | 2025-01-26 13:26 | XMS_ITS | Encounter Summary ---
Author Organization [facility] Address [address] Attn: Epic Prelude ADT [place]AH[place] [address] Care Team Providers Care Vocational Trainer Name Role Phone Jayesh Krueger MD Primary Care Provider [phone] Encounter Details Date Type Department Care Team (Late st Contact Info) Description 07/09/2000 Outpatient Historical Non-Staff, Physician NO ADDRESS ON FILE Social History Tobacco Use Types Packs/Day Years Used Date Smoking Tobacco: Never Assessed Comments Unknown Sex and Gender Information Value Date Recorded Sex Assigned at Not on file Legal Sex Female 5:34 AM GOLF CLUB ASSEMBLER Gender Identity Not on file Sexual Orientation Not on file documented as of this encounter Plan of Treatment Not on file documented as of this encounter Visit Diagnoses Not on filedocumented in this encounter Care Teams Vocational Trainer Relationship Specialty Start Date End Date Jayesh Krueger MD [address] [place] [address] PCP - General Internal Medicine 12/19/16 documented as of this encounter
--- OUTSIDE RECORDS SUMMARY | 2025-01-26 13:26 | XMS_ITS ---
Demographics Address [address] [place] [address] Home Phone Home Phone Phone Unavailable Preferred Language en Marital Status Unknown Taoist Affiliation Unknown Race Unknown Ethnic Group Unknown [facility] Care Team Providers Care Substation Operator Automatic Name Role Phone Russ Neri Unavailable Unavailable Nuvia Summers Unavailable Unavailable Allergies and adverse reactions Code CodeSystem Substance Reaction Severity StartDate Concern Status 16788 RXNORM Lisinopril Unknown 04/10/2018 active 15077 RXNORM Azithromycin Unknown 04/10/2018 active Care Team Name Role Address Phone Organization Dates Russ Neri PCP [address] [place], [address], [facility] : [facility] 04/09/2018 - 04/19/2018 Nuvia Summers [address] [place], [address], [place] (Office): : : [facility] 04/09/2018 - 04/19/2018 Immunizations Immunization Status Vaccine Details Vaccine Code CodeSystem Jered e Notes Influenza completed Influenza, high-dose, split virus, quadrivalent, injectable, preservative free 197 CVX created date: 04/09/2018 consent date: 12/30/2018 administere d date: 04/22/2018 Pneumovax Dose 1 completed cre ated date: 04/09/2018 administere d date: 04/13/2017 TB 2 Step Mantoux Skin Test completed tuberculin skin test; unspecified formulation Given 0.1 ml intradermally Step 1 of Multi-step with next step required 98 CVX created date: 04/16/2018 consent date: 04/16/2018 administere d date: 04/10/2018 Mental Status Section Date Assessment Total Score Description 04/19/2018 CAM 0 No delirium ind icated 04/16/2018 BIMS 08 moderate cognit dez impairment CAM 0 No delirium ind icated PHQ-9 20 severe depressi on Problems Problem # Description Date of onset Resolved Date Code CodeSystem Concern Status 1 ENCOUNTER FOR IMMUNIZATION 04/22/[address] active 2 TYPE 2 DIABETES MELLITUS WITHOUT COMPLICATIONS 04/11/[address] active 3 ACUTE KIDNEY FAILURE, UNSPECIFIED 04/09/[address] active 4 ATHEROSCLEROTIC HEART DISEASE OF [place] CORONARY ARTERY WITHOUT ANGINA PECTORIS 04/09/[address] active 5 BIPOLAR DISORDER, UNSPECIFIED 04/09/[address] active 6 COGNITIVE COMMUNICATION DEFICIT 04/09/[address] active 7 ESSENTIAL (PRIMARY) HYPERTENSION 04/09/[address] active 8 FIBROMYALGIA 04/09/[address] active 9 GASTRO-ESOPHAGEAL REFLUX DISEASE WITHOUT ESOPHAGITIS 04/09/[address] active 10 GENERALIZED ANXIETY DISORDER 04/09/[address] active 11 HYPERLIPIDEMIA, UNSPECIFIED 04/09/[address] active 12 HYPOTHYROIDISM, UNSPECIFIED 04/09/[address] active 13 MUSCLE WASTING AND ATROPHY, NOT ELSEWHERE CLASSIFIED, MULTIPLE SITES 04/09/[address] active 14 MUSCLE WASTING AND ATROPHY, NOT ELSEWHERE CLASSIFIED, UNSPECIFIED SITE 04/09/[address] active 15 OBSESSIVE-COMPULSIV E BEHAVIOR 04/09/[address] active 16 OTHER RECURRENT DEPRESSIVE DISORDERS 04/09/[address] active 17 PERSONAL HISTORY OF TRANSIENT ISCHEMIC ATTACK (TIA), AND CEREBRAL INFARCTION WITHOUT RESIDUAL DEFICITS 04/09/[address] active 18 UNSTEADINESS ON FEET 04/09/[address] active Reason for Referral No Reasons for Referral Entered Social History Social History Observation Description Start Date End Date Code Code System Current Smoking Status Tobacco smoking consumption unknown 634127700 SNOMED CT Sex Assigned At Female 1955 [address]-[address] [facility] Gender Identity Vital Signs Code Code System Vitals Name Values and Units Timing Information 51837-[address] [facility] Pain Level Value=0.0 04/19/2018 8462-[address] [facility] Blood Pressure-Diastolic Value=68 Un its=mmHg 04/18/2018 8480-[address] [facility] Blood Pressure-Systolic Snjsz=627 Un its=mmHg 04/18/2018 8310-[address] [facility] Body Temperature Value=97.2 Units= F 04/18/2018 9279-[address] [facility] Respiratory Rate Value=18.0 Units=/m in 04/18/2018 8867-[address] [facility] Heart rate Value=64.0 Units=/min 05/2018 2339-[address] [facility] Blood Sugar Jwxrb=245.0 Units=mg/dL 04/18/2018 26997-[address] [facility] O2 % BldC Oximetry Value=97.0 Units= % 04/17/2018 72166-[address] [facility] Weight Nzrzl=267.0 Units=Lbs 03/2018 8302-[address] [facility] Height Value=67.0 Units=Inches 04/10/2018
--- OUTSIDE RECORDS SUMMARY | 2025-01-26 13:26 | XMS_ITS | Encounter Summary ---
Author Organization [facility] Address [address] [facility] Attn: [place] [address] Care Team Providers Care Staff Submarine Warfare Officer Name Role Phone Jayesh Krueger MD Primary Care Provider [phone] Encounter Details Date Type Department Care Team (Late st Contact Info) Description 05/24/2000 Outpatient Historical Thomas Dailey MD [address] 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
--- NOTE | 2025-01-26 14:02 | W.ED.WOUNDLC ---
HPI - Wound/Laceration General: Chief Complaint: Wound/Laceration Stated Complaint: sent for admit-removing toe Time Seen by Provider: 01/26/25 13:50 History of Present Illness: 69-year-old female presents to the emergency room from podiatry clinic. She had previously had a wedge resection osteotomy of her right great toe she has had some complications podiatry had contacted us they are wanting her admitted for probable amputation. When she first arrived here she is in A-fib with RVR and her initial EKG had a rate of 136 he reports having had several episodes recently of rapid palpitation heart rate. When I went back to reexamine her her heart rate was back down to 100 and she was back in a normal sinus rhythm. She states it has been intermittent recently she has been told about her A-fib a month ago but had not started her on any medications for rate control she is already on propranolol she is not on any anticoagulants besides full-sized aspirin daily. Associated symptoms: Denies chills or fever(s) Related Data Home Medications ?Medication ?Instructions ?Recorded ?Confirmed diazepam 10 mg tablet 10 mg PO BID PRN Sleep 08/28/19 01/26/25 ascorbic acid 7.5 mg-vit E 7.5 1 tab PO DAILY@1000 11/12/20 01/26/25 unit-biotin 1,250 mcg chewable tablet (Hair,Skin,Nails with Biotin) multivitamin 1 tab PO DAILY@1000 11/12/20 01/26/25 ramelteon 8 mg tablet 8 mg PO BEDTIME 10/30/22 01/26/25 cyanocobalamin (vitamin B-12) 1,000 mcg PO DAILY 01/03/23 01/26/25 1,000 mcg tablet (Vitamin B-12) aspirin 325 mg tablet 325 mg PO DAILY 07/18/24 01/26/25 atorvastatin 20 mg tablet 20 mg PO .DAILY@10AM 07/18/24 01/26/25 cyclobenzaprine 10 mg tablet 10 mg PO TID PRN Muscle Spasm 07/18/24 01/26/25 gabapentin 100 mg capsule 100 mg PO BID 07/18/24 01/26/25 glimepiride 4 mg tablet 4 mg PO BID 07/18/24 01/26/25 meloxicam 15 mg tablet 15 mg PO DAILY 07/18/24 01/26/25 potassium chloride 20 mEq 20 meq PO .DAILY@10AM 07/18/24 01/26/25 tablet,extended release propranolol 80 mg capsule,24 80 mg PO BID 10/30/24 01/26/25 hr,extended release lamotrigine 200 mg tablet 200 mg PO BID 12/30/24 01/26/25 duloxetine 60 mg capsule,delayed 120 mg PO QAM 01/26/25 01/26/25 release fluoxetine 20 mg capsule 20 mg PO QAM 01/26/25 01/26/25 levothyroxine 200 mcg tablet 200 mcg PO .DAILY@10AM 01/26/25 01/26/25 lidocaine 5 % topical patch 1 patch topical DAILY PRN Pain 01/26/25 01/26/25 (Lidoderm) olanzapine 5 mg tablet 5 mg PO BEDTIME 01/26/25 01/26/25 quetiapine 400 mg tablet 400 mg PO BEDTIME 01/26/25 01/26/25 omega 9-mvy-uoi-fish oil 1,200 mg See Rx Instructions .Route .COMPLEX 01/30/25 01/30/25 (144 mg-216 mg) capsule (Fish Oil) Previous Rx's ?Medication ?Instructions ?Recorded insulin syringe-needle U-100 1 mL #100 ea 09/06/22 28 gauge x 1/2 (BD Insulin Syringe) Diabetic shoes #1 ea 04/11/23 blood-glucose meter #1 ea 06/12/23 blood sugar diagnostic (Blood #200 ea 06/15/23 Glucose Test strips) blood-glucose meter (Accu-Chek #1 ea 06/27/23 Guide Glucose Meter) blood sugar diagnostic (Accu-Chek #100 ea 07/26/23 Guide test strips) lancets (Accu-Chek Softclix #200 ea 09/14/23 Lancets) Diabetic Shoes with Inserts #1 ea 12/11/24 mupirocin 2 % topical ointment 1 applic topical BID 2 weeks #22 12/11/24 grams insulin syringe-needle U-100 1 mL #100 ea 01/02/25 31 gauge x 5/16 (TRUEplus Insulin) cam boot to right #1 ea 01/05/25 ciprofloxacin HCl 500 mg tablet 500 mg PO BID 14 days #28 tabs 01/19/25 hydrocodone 7.5 mg-acetaminophen 1 tab PO Q6H pain 7 days #28 tabs 01/19/25 325 mg tablet semaglutide 0.25 mg or 0.5 mg (2 0.5 mg (0.736 mL) SUBCUT .weekly 01/27/25 mg/3 mL) subcutaneous pen injector #3 mL (Ozempic) Allergies Allergy/AdvReac Type Severity Reaction Status Date / Time azithromycin (From Zithromax) Allergy rash Verified 01/27/25 11:18 cetirizine (From Zyrtec) Allergy rash Verified 01/27/25 11:18 lisinopril (From Zestril) Allergy ALGY-Swell Verified 01/27/25 11:18 Lip/Tongue/Throat metformin AdvReac Intermediate diarrhea Verified 01/27/25 11:18 topiramate (From Topamax) AdvReac Intermediate diarrhea Verified 01/27/25 11:18 Review of Systems Const: Denies: fever(s) or chills Card: Reports: palpitations and irregular heart rhythm; Denies: chest pain, edema, swelling of feet/ankles, dyspnea on exertion or orthopnea Resp: Denies: dyspnea GI: Denies: abdominal pain : Denies: dysuria, urinary frequency or urinary urgency Musc: Denies: neck pain or back pain Skin/Breast: Denies: rash PFSH ED PFSH: Medical History 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 Left shoulder pain Hypothyroid Hyperlipidemia Hypertension Diabetes mellitus Suspected COVID-19 virus infection Hypothyroidism Chronic diarrhea Tension headache, chronic CVA (cerebral vascular accident) TIA (transient ischemic attack) History of aphasia Hx of kidney disease Hx of type 2 diabetes mellitus History of anemia History of GI bleed History of hypothyroidism Hx of primary hypertension History of bipolar disorder History of anxiety History of depression History of posttraumatic stress disorder (PTSD) Surgical History Hx of appendectomy History of back surgery Hx of cholecystectomy Hx of hysterectomy Hx of neck surgery Social History Smoking and tobacco/nicotine status: never used tobacco/nicotine Alcohol intake: current Alcohol intake frequency: holidays/special occasions only Substance/Drug Use: never Physical Exam Const: GENERAL APPEARANCE: cooperative ORIENTATION/CONSCIOUSNESS: Yes awake, Yes oriented to person, Yes oriented to place and Yes oriented to time HENMT: COMMON NORMALS: normocephalic, atraumatic and hearing grossly normal bilaterally HEAD & SCALP: normocephalic and atraumatic Resp: COMMON NORMALS: normal respiratory effort, No retractions, No use of accessory muscles and clear to auscultation bilaterally AUSCULTATION: clear to auscultation bilaterally Cardio: COMMON NORMALS: regular rate, regular rhythm and No murmurs present (Cardio) RATE: regular rate RHYTHM: regular rhythm GI: COMMON NORMALS: Soft to palpation and No hepatosplenomegaly present AUSCULTATION: Yes normoactive bowel sounds PALPATION: Yes Soft to palpation, No Tenderness to palpation present (GI), No Guarding due to palpation present (GI) and Yes No hepatosplenomegaly present Extremity: OTHER: Mild swelling and erythema of the left great toe. Partial avulsion of the nail suture line in place no dehiscence no drainage or open wounds. The toe itself is indurated and moderately swollen. Neuro: SENSORIUM/ORIENTATION: Yes oriented to person, Yes oriented to place and Yes oriented to time Skin: COMMON NORMALS: no rashes or lesions noted GENERAL SKIN EXAM: no rashes or lesions noted Course Vital Signs: Vital signs: Vital Signs Temperature 98.9 F 02/02/25 10:00 Pulse Rate 94 02/02/25 10:00 Respiratory Rate 19 H 02/02/25 10:00 Blood Pressure 127/81 02/02/25 10:00 Pulse Oximetry 95 02/02/25 10:00 Oxygen Delivery Me thod Room Air 02/02/25 10:00 Oxygen Flow Rate 6 01/27/25 12:55 MDM - Wound/Laceration Medical Decision Making A-fib with RVR and cellulitis early osteomyelitis. A-fib treated with Cardizem bolus and then drip will admit the patient initiate IV antibiotics consult podiatry. Discussed with hospitalist orders written Medical Records I reviewed the patient's medical records. Lab Data I reviewed the patient's lab results. 02/02/25 04:38 02/02/25 04:38 Radiology Impressions Thyroid Ultrasound 01/27/25 16:22 IMPRESSION: Normal thyroid ultrasound. Hip/Pelvis X-Ray 01/28/25 13:29 Impression: Negative pelvis and both hips. Foot X-Ray 01/29/25 09:08 IMPRESSION: No definite acute osseous findings within limitations of the examination. Hip CT 01/29/25 09:08 IMPRESSION: 1. No acute RIGHT hip fracture is identified. If the pain is out of proportion to the image findings MRI of the RIGHT hip, noncontrast would provide additional information concerning subtle marrow edema/injury. 2. Large soft tissue hematoma centered posterior to the RIGHT hip measures at least 10.2 x 6.8 cm. Knee X-Ray 01/29/25 09:08 IMPRESSION: No acute osseous findings. Tibia/Fibula X-Ray 01/29/25 09:08 IMPRESSION: No acute osseous findings. Chest X-Ray 01/30/25 07:55 Impression: Atherosclerosis. Head/Neck CTA 01/30/25 08:23 IMPRESSION: 1. No significant cervical carotid artery stenosis. Mild atherosclerotic plaque at the bifurcations. 2. Atherosclerotic plaque in the intracranial carotid arteries through the cavernous sinuses. Less than 50% stenosis. 3. No flow-limiting stenosis or thrombus in the yocha dehe of [place]. 4. Dominant LEFT vertebral artery. Both vertebral arteries are patent. Chest/Abdomen/Pelvis CT 01/31/25 10:15 IMPRESSION: 1. Age-indeterminate T12 compression deformity. Clinical correlation is advised. If indicated, MRI can be obtained to exclude acute compression fracture. 2. Coronary calcifications. 3. Mild calcified atherosclerotic changes are seen in the thoracic aorta. IMPRESSION: 1. Large right gluteal hyperdense lesion measuring 4.1 x 7.9 x 10.7 cm. It has medial component extending to the right piriformis muscle. Finding could represent a intramuscular hematoma. Clinical correlation is advised. 2. Mild calcified atherosclerotic changes are seen throughout the abdominal aorta. 3. Diffuse colonic stool material. Clinical correlation to exclude constipation is advised. Head CT 01/31/25 10:15 IMPRESSION: No large territorial infarct or intracranial bleed. Venous Duplex 02/01/25 10:39 IMPRESSION: No sonographic evidence of deep venous thrombosis. Laboratory Results WBC 10.43 10^3/uL (3.29-11.43) 01/26/25 14:07 RBC 5.55 10^6/uL (3.85-5.65) 01/26/25 14:07 Hgb 15.60 g/dL (11.27-16.99) 01/26/25 14:07 Hct 48.0 % (36-47) H 01/26/25 14:07 MCV 86.5 fl (85-98) 01/26/25 14:07 MCH 28.1 pg (27-33) 01/26/25 14:07 MCHC 32.5 g/dL (30-55) 01/26/25 14:07 RDW 12.1 % (12.1-15.1) 01/26/25 14:07 Plt Count 347 10^3/cmm (157-399) 01/26/25 14:07 MPV 9.3 fL (7.4-10.4) 01/26/25 14:07 Neut % (Auto) 59.6 % 01/26/25 14:07 Lymph % (Auto) 27.1 % 01/26/25 14:07 [place] % (Auto) 8.1 % 01/26/25 14:07 Eos % (Auto) 4.5 % 01/26/25 14:07 Baso % (Auto) 0.4 % 01/26/25 14:07 Neut # (Auto) 6.22 10^3/uL (1.8-7.7) 01/26/25 14:07 Lymph # (Auto) 2.8 10^3/uL (0.8-4.8) 01/26/25 14:07 [place] # (Auto) 0.8 10^3/uL (0.2-0.9) 01/26/25 14:07 Eos # (Auto) 0.5 10^3/uL (0.0-0.8) 01/26/25 14:07 Baso # (Auto) 0.0 10^3/uL (0.0-0.1) 01/26/25 14:07 Nucleated RBC % (auto) 0 % 01/26/25 14:07 Nucleated RBCs # 0.0 /100WBC 01/26/25 14:07 ESR 30 mm/hr (0-15) H 01/26/25 14:07 PT 13.10 SECONDS (12.1-14.9) 01/26/25 14:07 INR 0.93 (0.8-1.2) 01/26/25 14:07 APTT 27.5 SECONDS (23.9-36.7) 01/26/25 14:07 Sodium 132 mmol/L (136-145) L 01/26/25 14:07 Potassium 4.3 mmol/L (3.5-5.1) 01/26/25 14:07 Chloride 95 mmol/L (98-107) L 01/26/25 14:07 Carbon Dioxide 23 mmol/L (22-29) 01/26/25 14:07 Anion Gap 18.3 (5-19) 01/26/25 14:07 BUN 6 mg/dL (8-23) L 01/26/25 14:07 Creatinine 0.8 mg/dL (0.5-0.9) 01/26/25 14:07 GFR Calculation 70.9 mL/min (90-130) L 01/26/25 14:07 Glucose 195 mg/dL (65-115) H 01/26/25 14:07 Calculated Osmolality 277 mOsm/kg (285-295) L 01/26/25 14:07 Calcium 9.5 mg/dL (8.5-10.5) 01/26/25 14:07 Total Bilirubin 0.3 mg/dL (0.15-1.2) 01/26/25 14:07 AST 15 U/L (0-32) 01/26/25 14:07 ALT 27 U/L (0-33) 01/26/25 14:07 Alkaline Phosphatase 110 U/L (35-105) H 01/26/25 14:07 C-Reactive Protein 3.0 mg/L (0.0-4.9) 01/26/25 14:07 Total Protein 7.9 g/dL (6.6-8.7) 01/26/25 14:07 Albumin 4.4 g/dL (3.5-5.2) 01/26/25 14:07 Globulin 3.5 g/dL (1.3-4.6) 01/26/25 14:07 Urine Color Yellow (Yellow) 01/26/25 15:39 Urine Appearance Clear (CLEAR) 01/26/25 15:39 Urine pH 7.0 (5-7) 01/26/25 15:39 Ur Specific [place] 1.003 (1.005-1.030) L 01/26/25 15:39 Urine Protein Trace (Negative) A 01/26/25 15:39 Urine Glucose (UA) Negative (Normal) 01/26/25 15:39 Urine Ketones Negative (Negative) 01/26/25 15:39 Urine Blood Negative (Negative) 01/26/25 15:39 Urine Nitrate Negative (Negative) 01/26/25 15:39 Urine Bilirubin Negative (Negative) 01/26/25 15:39 Urine Urobilinogen 0.2 mg/dL (Negative) 01/26/25 15:39 Ur Leukocyte Esterase Negative (Negative) 01/26/25 15:39 Urine RBC 0-2 /hpf (0-2) 01/26/25 15:39 Urine WBC 0-5 /hpf (0-5) 01/26/25 15:39 Ur Squamous Epith Cells 0-5 /hpf (0-5) 01/26/25 15:39 Amorphous Sediment Not Reportable 01/26/25 15:39 Urine Bacteria None seen /hpf (NONE) 01/26/25 15:39 Hyaline Casts 0-4 /lpf H 01/26/25 15:39 All radiology interpretation(s) finalized by discharge EKG Data EKG 1: Interpretation: EKG 01/26/2025 1435 atrial flutter rate of 136. No acute ST changes. Compared to x-ray 01/14/2025 Discharge Plan Discharge Patient Disposition: Admitted As Inpatient Admit Provider: Alexander Ramos Clinical Impression: Atrial fibrillation with rapid ventricular response, Diabetes mellitus, Cellulitis, Cellulitis of left foot, Osteomyelitis of great toe of left foot, Diabetic foot infection Condition: Stable Discharge Diet: Advance as tolerated Discharge Activity: Limit activity as instructed Coding Level of Care Code ED Picker Tender for Jaret Deal
[2025-01-26 14:21] LABS: Hematocrit 48.0 % (36-47); Hemoglobin 15.60 g/dL (11.27-16.99); Mean Corpuscular HGB Conc 32.5 g/dL (30-55); Mean Corpuscular Hemoglobin 28.1 pg (27-33); Mean Corpuscular Volume 86.5 fl (85-98); Nucleated Red Blood Cells % 0 %; Platelet Count 347 10^3/cmm (157-399); Red Blood Count 5.55 10^6/uL (3.85-5.65); White Blood Count 10.43 10^3/uL (3.29-11.43)
[2025-01-26 14:34] LABS: Alanine Aminotransferase 27 U/L (0-33); Albumin Level 4.4 g/dL (3.5-5.2); Alkaline Phosphatase 110 U/L (35-105); Anion Gap 18.3 (5-19); Aspartate Amino Transferase 15 U/L (0-32); Blood Urea Nitrogen 6 mg/dL (8-23); Calcium 9.5 mg/dL (8.5-10.5); Carbon Dioxide 23 mmol/L (22-29); Chloride 95 mmol/L (98-107); Creatinine Clr Calc Pharmacy 72.3640; Globulin 3.5 g/dL (1.3-4.6); Glucose 195 mg/dL (65-115); Osmolality Calculated 277 mOsm/kg (285-295); Potassium 4.3 mmol/L (3.5-5.1); Sodium 132 mmol/L (136-145); Total Protein 7.9 g/dL (6.6-8.7)
--- NOTE | 2025-01-26 14:35 | ECG_ITS ---
[facility] Date: 2025-01-26 Pat Name: Kaylee Ch Department: Room: Gender: Female Compensation Specialist: : 1955 Requested By: Melvin Barbosa Order Number: [id number] Yasmine MD: Barrie Urbina M.D. Measurements Intervals [place] Rate: 136 P: 0 CA: 0 QRS: 71 QRSD: 92 T: 34 QT: 302 QTc: 454 Interpretive Statements ATRIAL FLUTTER/TACHYCARDIA WITH RAPID VENTRICULAR RESPONSE ABNORMAL RHYTHM ECG Compared to ECG 01/14/2025 10:47:17 Sinus tachycardia no longer present Electronically Signed On 01-26-2025 16:53:56 CDT by Barrie Urbina M.D. [email or web address]
[2025-01-26] MEDS: linezolid premix 600 MG/300 ML PREMIX 300 MG IV (15:19)
[2025-01-26] MEDS: ondansetron 2 mg/ML SDV 2 mL 4 MG IVP (15:43)
--- NOTE | 2025-01-26 16:09 | ECG_ITS ---
[facility] Test Date: 2025-01-26 Pat Name: Kaylee Ch Department: Room: Gender: Female Correctional Officer: : 1955 Requested By: Alexander Ramos Order Number: [id number] Yasmine MD: Barrie Urbina M.D. Measurements Intervals Ava Rate: 108 P: 60 MO: 148 QRS: 79 QRSD: 94 T: 56 QT: 324 QTc: 435 Interpretive Statements SINUS TACHYCARDIA ABNORMAL RHYTHM ECG Compared to ECG 01/26/2025 14:35:31 Atrial flutter no longer present Electronically Signed On 01-26-2025 16:53:22 CDT by Barrie Urbina M.D. [email or web address]
[2025-01-26 16:13] LABS: Glucose Urine UA Negative (Normal); Nitrate Urine Negative (Negative); Specific Gravity, Urine 1.003 (1.005-1.030)
--- NOTE | 2025-01-26 16:15 | PM.HP ---
Providers/Chief Complaint Primary Care Provider: Carter Yusuf MD Chief Complaint: Ahuja sent for admit-removing toe History of Present Illness Kaylee Ch is a 69 year old female history of type 2 diabetes, hypertension, hyperlipidemia, history of TIA, who presents to [facility] due to 2 concerns for left foot great toe swelling, erythema, with tachycardia. Currently patient is alert oriented x 3, following all commands, she denies any fevers, no chills, she does report chest palpitations, no chest pain, no shortness of breath. She was seen by Dr. Ahuja this morning, she has had increased swelling of her left great toe, she has had cultures that have grown Pseudomonas she has been on ciprofloxacin but continues to have increased swelling and tenderness of her left great toe. There is also concerns for atrial fibrillation, she was found to have A-fib, we are emergency room heart rates as high as 145 placed on a Cardizem drip Review of Systems Const: Denies: fever(s) or chills Card: Denies: chest pain Resp: Denies: dyspnea Medications/Allergies Home Medications ?Medication ?Instructions ?Recorded ?Confirmed ?Last Taken ?Type diazepam 10 mg tablet 10 mg PO BID PRN Sleep 08/28/19 01/26/25 01/25/25 History ascorbic acid 7.5 mg-vit E 7.5 1 tab PO DAILY@1000 11/12/20 01/26/25 01/25/25 History unit-biotin 1,250 mcg chewable tablet (Hair,Skin,Nails with Biotin) multivitamin 1 tab PO DAILY@1000 11/12/20 01/26/25 01/25/25 History insulin syringe-needle U-100 1 mL #100 ea 09/06/22 01/26/25 Unknown Rx 28 gauge x 1/2 (BD Insulin Syringe) ramelteon 8 mg tablet 8 mg PO BEDTIME 10/30/22 01/26/25 01/25/25 History cyanocobalamin (vitamin B-12) 1,000 mcg PO DAILY 01/03/23 01/26/25 01/25/25 History 1,000 mcg tablet (Vitamin B-12) Diabetic shoes #1 ea 04/11/23 01/26/25 Unknown Rx blood-glucose meter #1 ea 06/12/23 01/26/25 Unknown Rx blood sugar diagnostic (Blood #200 ea 06/15/23 01/26/25 Unknown Rx Glucose Test strips) blood-glucose meter (Accu-Chek #1 ea 06/27/23 01/26/25 Unknown Rx Guide Glucose Meter) blood sugar diagnostic (Accu-Chek #100 ea 07/26/23 01/26/25 Unknown Rx Guide test strips) lancets (Accu-Chek Softclix #200 ea 09/14/23 01/26/25 Unknown Rx Lancets) aspirin 325 mg tablet 325 mg PO DAILY 07/18/24 01/26/25 01/25/25 History atorvastatin 20 mg tablet 20 mg PO .DAILY@10AM 07/18/24 01/26/25 01/25/25 History cyclobenzaprine 10 mg tablet 10 mg PO TID PRN Muscle Spasm 07/18/24 01/26/25 01/13/25 History gabapentin 100 mg capsule 100 mg PO BID 07/18/24 01/26/25 01/25/25 History glimepiride 4 mg tablet 4 mg PO BID 07/18/24 01/26/25 01/25/25 History meloxicam 15 mg tablet 15 mg PO DAILY 07/18/24 01/26/25 01/25/25 History potassium chloride 20 mEq 20 meq PO .DAILY@10AM 07/18/24 01/26/25 01/25/25 History tablet,extended release propranolol 80 mg capsule,24 80 mg PO BID 10/30/24 01/26/25 01/25/25 History hr,extended release Diabetic Shoes with Inserts #1 ea 12/11/24 01/26/25 Unknown Rx mupirocin 2 % topical ointment 1 applic topical BID 2 weeks #22 12/11/24 01/26/25 01/25/25 Rx grams lamotrigine 200 mg tablet 200 mg PO BID 12/30/24 01/26/25 01/25/25 History semaglutide 0.25 mg or 0.5 mg (2 0.5 mg (0.736 mL) SUBCUT .weekly 12/30/24 01/26/25 01/21/25 Rx mg/3 mL) subcutaneous pen injector #3 mL (cloud.IQ) insulin syringe-needle U-100 1 mL #100 ea 01/02/25 01/26/25 Unknown Rx 31 gauge x 5/16 (TRUEplus Insulin) cam boot to right #1 ea 01/05/25 01/26/25 Unknown Rx ciprofloxacin HCl 500 mg tablet 500 mg PO BID 14 days #28 tabs 01/19/25 01/26/25 01/25/25 Rx hydrocodone 7.5 mg-acetaminophen 1 tab PO Q6H pain 7 days #28 tabs 01/19/25 01/26/25 Unknown Rx 325 mg tablet duloxetine 60 mg capsule,delayed 120 mg PO QAM 01/26/25 01/26/25 01/25/25 History release fluoxetine 20 mg capsule 20 mg PO QAM 01/26/25 01/26/25 01/25/25 History levothyroxine 200 mcg tablet 200 mcg PO .DAILY@10AM 01/26/25 01/26/25 01/25/25 History lidocaine 5 % topical patch 1 patch topical DAILY PRN Pain 01/26/25 01/26/25 Unknown History (Lidoderm) olanzapine 5 mg tablet 5 mg PO BEDTIME 01/26/25 01/26/25 01/25/25 History Allergies Allergy/AdvReac Type Severity Reaction Status Date / Time azithromycin (From Zithromax) Allergy rash Verified 01/26/25 13:39 cetirizine (From Zyrtec) Allergy rash Verified 01/26/25 13:39 lisinopril (From Zestril) Allergy ALGY-Swell Verified 01/26/25 13:39 Lip/Tongue/Throat metformin AdvReac Intermediate diarrhea Verified 01/26/25 13:39 topiramate (From Topamax) AdvReac Intermediate diarrhea Verified 01/26/25 13:39 PFSH Acute PFSH: Medical History 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 Left shoulder pain Hypothyroid Hyperlipidemia Hypertension Diabetes mellitus Suspected COVID-19 virus infection Hypothyroidism Chronic diarrhea Tension headache, chronic CVA (cerebral vascular accident) TIA (transient ischemic attack) History of aphasia Hx of kidney disease Hx of type 2 diabetes mellitus History of anemia History of GI bleed History of hypothyroidism Hx of primary hypertension History of bipolar disorder History of anxiety History of depression History of posttraumatic stress disorder (PTSD) Surgical History Hx of appendectomy History of back surgery Hx of cholecystectomy Hx of hysterectomy Hx of neck surgery Social History Smoking and tobacco/nicotine status: never used tobacco/nicotine Alcohol intake: current Alcohol intake frequency: holidays/special occasions only Substance/Drug Use: never Vitals/I&O/Wt Last Vital Signs Temp 98.4 F 01/26/25 13:33 Pulse 145 H 01/26/25 16:00 Resp 17 01/26/25 16:00 BP 160/111 01/26/25 16:00 Pulse Ox 93 01/26/25 16:00 Weight last 48 hrs Weight 86.183 kg Physical Exam Const: COMMON NORMALS: no acute distress and patient oriented x3 HENMT: COMMON NORMALS: normocephalic HEAD & SCALP: normocephalic Neck/C-Spine: COMMON NORMALS: no JVD Resp: COMMON NORMALS: normal respiratory effort, No retractions, No use of accessory muscles and clear to auscultation bilaterally AUSCULTATION: clear to auscultation bilaterally Cardio: COMMON NORMALS: S1 normal heart sound present and S2 normal heart sound present RATE: tachycardic RHYTHM: abnormal rhythm irregularly irregular HEART SOUNDS: S1 normal heart sound present and S2 normal heart sound present GI: COMMON NORMALS: Normal to inspection, nondistended, normoactive bowel sounds present, Soft to palpation and non-tender Extremity: COMMON NORMALS: no calf tenderness and no pedal edema Neuro: COMMON NORMALS: patient oriented x3, CN's II-XII intact bilaterally and moves all extremities Psych: COMMON NORMALS: mental status grossly normal Skin: NARRATIVE SKIN EXAM: Skin examination, left great toe, swelling, erythema, tenderness, suture site looks clean and dry, with erythema along the base Data 01/26/25 14:07 01/26/25 14:07 Micro: Microbiology 01/26/25 15:02 Blood Culture - Preliminary Blood SPECIMEN COLLECTED 01/26/25 14:19 Blood Culture - Preliminary Blood SPECIMEN COLLECTED A&P Assessment and plan 1. Atrial fibrillation with rapid ventricular response: 2. Diabetic foot infection: Plan: Diabetic foot infection, left foot -History of left great toe osteomyelitis, -History of hardware infection, status post removal -Wound cultures growing Pseudomonas Plan - Spoke to podiatry service - Follow blood cultures - Antibiotic currently on hold as there are plans on bone biopsy tomorrow, plans of antibiotics thereafter - Will likely cover with broad-spectrum vancomycin, meropenem Atrial fibrillation with rapid ventricular response - Cardizem drip -Therapeutic Lovenox Type 2 diabetes mellitus, low-dose sliding scale Full code Lovenox for DVT prophylaxis PDMP PDMP Reviewed: Last Reviewed 01/26/25 16:04 by Alexander Ramos MD Attestations Medical Necessity Statement*: Patient requires hospitalization for diabetic foot infection left foot, A-fib with RVR, inpatient, greater than 2 midnights Diagnoses Atrial fibrillation with rapid ventricular response I48.91 Diabetic foot infection E11.628; L08.9
[2025-01-26 16:18] LABS: Add Urine Microscopic? YES
--- NOTE | 2025-01-26 16:29 | PC.NURSE ---
HOLDING ORDERED 20MG DILTIAZEM AT THIS TIME PER DR MAI VERBAL ORDER. PT STATES SHE HAS AFIB BUT DOES NOT TAKE ANY MEDS FOR IT. PT HR 100-110 AT THIS TIME.
--- NOTE | 2025-01-26 17:39 | USCV_ITS ---
Kaylee Ch Age: 69 Gender: F : 1955 Exam Date: 01/26/2025 19:46 Ordering Phys: Alexander Ramos MD Technologist: TARA [place] [facility] [place]: sob, DM2, HTN, HL BP: 154 / 118 HR: 85 Rhythm: Sinus Technical Quality: Adequate MEASUREMENTS (Male / Female) Normal Values 2D ECHO LV Diastolic Diameter PLAX 3.6 cm 4.2 - 5.9 / 3.9 - 5.3 cm IVS Diastolic Thickness 1.5 cm 0.6 - 1.0 / 0.6 - 0.9 cm IVS Systolic Thickness 1.7 cm LVPW Diastolic Thickness 1.3 cm 0.6 - 1.0 / 0.6 - 0.9 cm LVPW Systolic Thickness 1.3 cm LVOT Diameter 1.8 cm LV Ejection Fraction 2D Teich 60.5 % LV Ejection Fraction MOD 4C 62.2 % LV Ejection Fraction MOD 2C 60.7 % LV Ejection Fraction 2C AL 62.1 % LA Diameter 3.7 cm Aorta at Sinotubular Diameter 2.5 cm IVC Diameter 1.3 cm M-MODE LA Ao Ratio MM 1.4 AV Cusp Separation MM 1.8 cm DOPPLER AV Peak Velocity 131.0 cm/s LVOT Peak Velocity 107.0 cm/s AV Area Cont Eq vti 2.0 cm squared AV Area Cont Eq pk 2.1 cm squared MV Peak Velocity 181.0 cm/s MV Area PHT 3.3 cm squared Mitral E to A Ratio 0.8 TV Peak E Velocity 56.0 cm/s PV Peak Velocity 78.0 cm/s FINDINGS Left Ventricle Left ventricle is normal in size. LV systolic function is normal with EF of 60-65%. No regional wall motion abnormalities are seen. Grade 1 diastolic dysfunction. Right Ventricle Normal in size and function. Right Atrium Normal in size Left Atrium Normal in size. Mitral Valve Moderate to severe mitral annular calcification. Mild mitral regurgitation. Mild mitral stenosis with mean gradient across mitral valve of 5 mmHg Aortic Valve Aortic valve is thickened. No significant stenosis. Tricuspid Valve Insufficient TR jet to calculate RVSP Pulmonic Valve Not well-visualized Pericardium Normal Aorta Normal in size IVC Appears to be normal CONCLUSIONS LV systolic function is normal with EF of 60-65% Grade 1 diastolic dysfunction Mild mitral regurgitation Mild mitral stenosis Ranjit Nicolas MD (Electronically Signed) Final Date: 27 January 2025 09:05 S
[2025-01-26 18:26] LABS: Troponin(5th) Baseline 20 ng/L (0-10)
[2025-01-26 18:34] LABS: INR 0.93 (0.8-1.2); Prothrombin Time 13.10 SECONDS (12.1-14.9)
[2025-01-26 18:35] LABS: Partial Thromboplastin Time 27.5 SECONDS (23.9-36.7)
[2025-01-26] MEDS: pantoprazole 40 mg SDV IVP (18:48)
[2025-01-26 18:59] LABS: NT Pro B Type Natriuretic Pept 105 pg/mL (0-125); Procalcitonin 0.03 ng/mL (0-0.5); Thyroid Stimulating Hormone 0.02 uIU/mL (0.27-4.20)
[2025-01-26 19:10] LABS: Cholesterol 154 mg/dL (0-200); HDL Cholesterol 59 mg/dL (60-100); Triglycerides 133 mg/dL (0-150)
[2025-01-26 20:38] LABS: Lactic Sepsis W/Reflex 1.4 mmol/L (0.5-2.2)
[2025-01-26 21:54] LABS: Troponin 5 2HR 21.63 ng/L (0-10); Troponin 5 2HR Delta 1.63 ABS# (0-10)
--- NOTE | 2025-01-26 22:09 | ECG_ITS ---
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 Measurements Intervals [place] Rate: 79 P: 72 HI: 177 QRS: 88 QRSD: 96 T: 56 QT: 380 QTc: 437 Interpretive Statements SINUS RHYTHM Compared to ECG 01/26/2025 16:23:44 Sinus tachycardia no longer present Electronically Signed On 01-31-2025 14:53:33 CDT by Alexis [email or web address]
[2025-01-26 22:28] LABS: Estmated Average Glucose 128; Hemoglobin A1C 6.1 % (4.0-6.0)
--- NOTE | 2025-01-26 23:16 | PC.NURSE ---
Upon arrival to the floor the patient is in sinus rhythm with a HR of the mid 80s, cardizem was not started by ER. pt remains off gtt
[2025-01-27] VITALS (16 sets, daily range): BP systolic 111–175; BP diastolic 58–95; PULSE 12–98; RESP 12–86; TEMP 36.1–36.8; O2SAT 90–97; BMI 29.5
[2025-01-27 00:10] LABS: Troponin 5 6HR 21.60 ng/L (0-10); Troponin 5 6HR Delta 1.60 ng/L (0-12)
[2025-01-27 03:59] LABS: Hematocrit 42.6 % (36-47); Hemoglobin 13.60 g/dL (11.27-16.99); Mean Corpuscular HGB Conc 31.9 g/dL (30-55); Mean Corpuscular Hemoglobin 28.4 pg (27-33); Mean Corpuscular Volume 88.9 fl (85-98); Nucleated Red Blood Cells % 0 %; Platelet Count 247 10^3/cmm (157-399); Red Blood Count 4.79 10^6/uL (3.85-5.65); White Blood Count 8.37 10^3/uL (3.29-11.43)
[2025-01-27 04:20] LABS: Alanine Aminotransferase 21 U/L (0-33); Albumin Level 3.6 g/dL (3.5-5.2); Alkaline Phosphatase 87 U/L (35-105); Anion Gap 14.0 (5-19); Aspartate Amino Transferase 13 U/L (0-32); Blood Urea Nitrogen 8 mg/dL (8-23); Calcium 8.9 mg/dL (8.5-10.5); Carbon Dioxide 24 mmol/L (22-29); Chloride 105 mmol/L (98-107); Creatinine Clr Calc Pharmacy 71.2017; Globulin 2.9 g/dL (1.3-4.6); Glucose 110 mg/dL (65-115); Magnesium 2.0 mg/dL (1.7-2.3); Osmolality Calculated 287 mOsm/kg (285-295); Potassium 4.0 mmol/L (3.5-5.1); Sodium 139 mmol/L (136-145); Total Protein 6.5 g/dL (6.6-8.7)
[2025-01-27] MEDS: pantoprazole 40 mg SDV IVP ×2 (06:01→18:15)
--- NOTE | 2025-01-27 06:57 | PM.CONSULT ---
Providers/Reason For Consult Consulting Physician/Specialty*: Jr Ahuja D.P.M. Reason for Consult*: Left great toe infection Attending Physician: Alexander Ramos MD Primary Care Provider: Carter Yusuf MD History of Present Illness History of Present Illness Established 69 year old diabetic female patient presenting to clinic for post operative follow up after a Hardware removal and incision of bone cortex left great toe. DOS:01/14/25. Was directed to the emergency department due to failed outpatient antibiotics, hardware removal left great toe grew Pseudomonas had failed ciprofloxacin, she had a follow-up appointment podiatry clinic yesterday with complaints of subjective fevers and malaise. She is found to have tachycardia and hypertensive emergency and was directed to the emergency department. Review of Systems General: Reports: 10 or more systems reviewed and unremarkable except in HPI and below Const: Denies: fever(s) or chills Eyes: Denies: change in vision Card: Denies: chest pain or palpitations Resp: Denies: dyspnea or productive cough GI: Denies: abdominal pain, nausea or vomiting : Denies: flank pain Musc: Reports: extremity swelling, joint stiffness and deformity Skin/Breast: Reports: erythema, sores, changes in skin color, dry skin, nail changes and change in hair Neuro: Reports: numbness in extremities, sensory changes and difficulty walking Psych: Denies: suicidal ideation Endo: Denies: change in body appearance Isidoro/Lymph: Denies: tender lymph nodes Medications/Allergies Home Medications ?Medication ?Instructions ?Recorded ?Confirmed ?Last Taken ?Type diazepam 10 mg tablet 10 mg PO BID PRN Sleep 08/28/19 01/26/25 01/25/25 History ascorbic acid 7.5 mg-vit E 7.5 1 tab PO DAILY@1000 11/12/20 01/26/25 01/25/25 History unit-biotin 1,250 mcg chewable tablet (Hair,Skin,Nails with Biotin) multivitamin 1 tab PO DAILY@1000 11/12/20 01/26/25 01/25/25 History insulin syringe-needle U-100 1 mL #100 ea 09/06/22 01/26/25 Unknown Rx 28 gauge x 1/2 (BD Insulin Syringe) ramelteon 8 mg tablet 8 mg PO BEDTIME 10/30/22 01/26/25 01/25/25 History cyanocobalamin (vitamin B-12) 1,000 mcg PO DAILY 01/03/23 01/26/25 01/25/25 History 1,000 mcg tablet (Vitamin B-12) Diabetic shoes #1 ea 04/11/23 01/26/25 Unknown Rx blood-glucose meter #1 ea 06/12/23 01/26/25 Unknown Rx blood sugar diagnostic (Blood #200 ea 06/15/23 01/26/25 Unknown Rx Glucose Test strips) blood-glucose meter (Accu-Chek #1 ea 06/27/23 01/26/25 Unknown Rx Guide Glucose Meter) blood sugar diagnostic (Accu-Chek #100 ea 07/26/23 01/26/25 Unknown Rx Guide test strips) lancets (Accu-Chek Softclix #200 ea 09/14/23 01/26/25 Unknown Rx Lancets) aspirin 325 mg tablet 325 mg PO DAILY 07/18/24 01/26/25 01/25/25 History atorvastatin 20 mg tablet 20 mg PO .DAILY@10AM 07/18/24 01/26/25 01/25/25 History cyclobenzaprine 10 mg tablet 10 mg PO TID PRN Muscle Spasm 07/18/24 01/26/25 01/13/25 History gabapentin 100 mg capsule 100 mg PO BID 07/18/24 01/26/25 01/25/25 History glimepiride 4 mg tablet 4 mg PO BID 07/18/24 01/26/25 01/25/25 History meloxicam 15 mg tablet 15 mg PO DAILY 07/18/24 01/26/25 01/25/25 History potassium chloride 20 mEq 20 meq PO .DAILY@10AM 07/18/24 01/26/25 01/25/25 History tablet,extended release propranolol 80 mg capsule,24 80 mg PO BID 10/30/24 01/26/25 01/25/25 History hr,extended release Diabetic Shoes with Inserts #1 ea 12/11/24 01/26/25 Unknown Rx mupirocin 2 % topical ointment 1 applic topical BID 2 weeks #22 12/11/24 01/26/25 01/25/25 Rx grams lamotrigine 200 mg tablet 200 mg PO BID 12/30/24 01/26/25 01/25/25 History semaglutide 0.25 mg or 0.5 mg (2 0.5 mg (0.736 mL) SUBCUT .weekly 12/30/24 01/26/25 01/21/25 Rx mg/3 mL) subcutaneous pen injector #3 mL (Ozempic) insulin syringe-needle U-100 1 mL #100 ea 01/02/25 01/26/25 Unknown Rx 31 gauge x 5/16 (TRUEplus Insulin) cam boot to right #1 ea 01/05/25 01/26/25 Unknown Rx ciprofloxacin HCl 500 mg tablet 500 mg PO BID 14 days #28 tabs 01/19/25 01/26/25 01/25/25 Rx hydrocodone 7.5 mg-acetaminophen 1 tab PO Q6H pain 7 days #28 tabs 01/19/25 01/26/25 Unknown Rx 325 mg tablet duloxetine 60 mg capsule,delayed 120 mg PO QAM 01/26/25 01/26/25 01/25/25 History release fluoxetine 20 mg capsule 20 mg PO QAM 01/26/25 01/26/25 01/25/25 History levothyroxine 200 mcg tablet 200 mcg PO .DAILY@10AM 01/26/25 01/26/25 01/25/25 History lidocaine 5 % topical patch 1 patch topical DAILY PRN Pain 01/26/25 01/26/25 Unknown History (Lidoderm) olanzapine 5 mg tablet 5 mg PO BEDTIME 01/26/25 01/26/25 01/25/25 History quetiapine 400 mg tablet 400 mg PO BEDTIME 01/26/25 01/26/25 01/25/25 History Allergies Allergy/AdvReac Type Severity Reaction Status Date / Time azithromycin (From Zithromax) Allergy rash Verified 01/26/25 13:39 cetirizine (From Zyrtec) Allergy rash Verified 01/26/25 13:39 lisinopril (From Zestril) Allergy ALGY-Swell Verified 01/26/25 13:39 Lip/Tongue/Throat metformin AdvReac Intermediate diarrhea Verified 01/26/25 13:39 topiramate (From Topamax) AdvReac Intermediate diarrhea Verified 01/26/25 13:39 Current Medications Generic Name Dose Route Start Last Admin Trade Name Freq PRN Reason Stop Dose Admin Diazepam 10 mg 01/26/25 17:42 01/26/25 21:46 Diazepam 5 Mg Tablet PO 10 mg BID PRN Administration Sleep Duloxetine HCl 120 mg 01/27/25 06:00 01/27/25 06:02 Duloxetine 60 Mg Capsule PO 120 mg QAM JACQUELINE Administration Enoxaparin Sodium 90 mg 01/26/25 17:35 01/27/25 06:02 Enoxaparin 100 Mg/Ml Syringe 1 mg/kg (90 mg) 90 mg SUBCUT Administration Q12H JACQUELINE Fluoxetine HCl 20 mg 01/27/25 06:00 01/27/25 06:02 Fluoxetine 20 Mg Capsule PO 20 mg QAM JACQUELINE Administration Gabapentin 100 mg 01/26/25 18:00 01/26/25 18:47 Gabapentin 100 Mg Capsule PO 100 mg BID JACQUELINE Administration Sodium Chloride 1,000 mls @ 100 mls/hr 01/26/25 17:35 01/27/25 03:56 Sodium Chloride 0.9% IV 100 mls/hr .Q10H JACQUELINE Administration Insulin Human Lispro 0 unit 01/26/25 18:00 01/26/25 18:47 Insulin Lispro 100 Unit/1 Ml SUBCUT Not Given TIDWM [facility] Protocol Lamotrigine 200 mg 01/26/25 18:00 01/26/25 18:47 Lamotrigine 100 Mg Tablet PO 200 mg BID JACQUELINE Administration Olanzapine 5 mg 01/26/25 21:00 01/26/25 21:11 Olanzapine 5 Mg Tablet PO 5 mg BEDTIME JCAQUELINE Administration Ondansetron HCl 4 mg 01/26/25 15:18 01/26/25 15:43 Ondansetron 2 Mg/Ml Sdv 2 Ml IVP 4 mg Q6H PRN Administration NAUSEA AND VOMITING Pantoprazole Sodium 40 mg 01/26/25 17:35 01/27/25 06:01 Pantoprazole 40 Mg Sdv IVP 40 mg Q12H JACQUELINE Administration Quetiapine Fumarate 100 mg/ 400 mg 01/26/25 21:28 01/26/25 21:46 Quetiapine Fumarate 300 mg PO 400 mg BEDTIME JACQUELINE Administration Sucralfate 1 gm 01/26/25 18:00 01/26/25 18:47 Sucralfate 1 Gm Tablet PO 1 gm BID JACQUELINE Administration PFSH Acute PFSH: Medical History (Updated 01/26/25 @ 16:19 by Alexander Ramos MD) 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 Left shoulder pain Hypothyroid Hyperlipidemia Hypertension Diabetes mellitus Suspected COVID-19 virus infection Hypothyroidism Chronic diarrhea Tension headache, chronic CVA (cerebral vascular accident) TIA (transient ischemic attack) History of aphasia Hx of kidney disease Hx of type 2 diabetes mellitus History of anemia History of GI bleed History of hypothyroidism Hx of primary hypertension History of bipolar disorder History of anxiety History of depression History of posttraumatic stress disorder (PTSD) Surgical History Hx of appendectomy History of back surgery Hx of cholecystectomy Hx of hysterectomy Hx of neck surgery Social History Smoking and tobacco/nicotine status: never used tobacco/nicotine Alcohol intake: current Alcohol intake frequency: holidays/special occasions only Substance/Drug Use: never Vitals/I&O/Wt Last Vital Signs Temp 98.0 F 01/27/25 00:00 Pulse 87 01/27/25 04:47 Resp 15 01/27/25 04:00 BP 140/77 01/27/25 04:00 Pulse Ox 92 01/27/25 04:00 O2 Del Method Room Air 01/27/25 04:00 01/26/25 01/26/25 01/27/25 14:59 22:59 06:59 Intake Total 1260 / 1260 1000 / 2260 Balance 1260 / 1260 1000 / 2260 Weight last 48 hrs Weight 183 lb 11.2 oz Weight 183 lb 12.8 oz Weight 190 lb Physical Exam Narrative: GENERAL: Patient is alert and oriented ?3 and in no acute distress. The following is a focused left lower extremity exam. VASCULAR: Dorsalis pedis and posterior tibial arteries palpable +2. Capillary refill time less than 3 seconds to the distal hallux bilaterally. Calf is supple and nontender proximally and distally. Edema at the left great toe. NEUROLOGICAL: Protective sensation intact to light touch. DERMATOLOGICAL: Erythema left great toe. No open or draining wound. MUSCULOSKELETAL: Tenderness to the left great toe, no crepitus with soft tissue palpation. GENERAL: Patient is alert and oriented ?3 and in no acute distress. The following is a focused left lower extremity exam. CARDIOVASCULAR: S1, S2, normal rate, normal rhythm. Dorsalis pedis and posterior tibial arteries palpable. LUNGS: Clear to auscltation, no use of acessory muscles, no crackles or wheezes. Data 01/27/25 03:29 01/27/25 03:29 Micro: Microbiology 01/26/25 15:02 Blood Culture - Preliminary Blood SPECIMEN COLLECTED 01/26/25 14:19 Blood Culture - Preliminary Blood SPECIMEN COLLECTED A&P Assessment and plan 1. Diabetic peripheral neuropathy associated with type 2 diabetes mellitus: 2. Cellulitis of left foot: 3. Osteomyelitis of great toe of left foot: Plan: Patient admitted for atrial fibrillation and left great toe osteomyelitis. Wound culture left great toe 12/29/2024 significant for Pseudomonas, has failed ciprofloxacin 500 mg twice daily outpatient X-ray shows erosive and destructive changes at the left distal and proximal phalanx at the hallux interphalangeal joint consistent with osteomyelitis Discussed treatment options with patient at length including limb salvage efforts which would include hospitalization, debridement down to bone, infectious disease consultation and likely PICC line for minimum of 6 weeks of IV antibiotics. Also discussed amputation of the left great toe. Patient is most interested in proceeding with amputation states that she does not want to have a strong treatment plan that still has risks of failure ending an amputation anyways. Had further discussion with the patient this morning bedside in regards to her left great toe, I informed her that salvage efforts to keep the toe are favorable she has no leukocytosis, ESR is 30, salvage efforts would entail debridement and bone culture with long-term course of IV antibiotics in my opinion would have a favorable outcome. Patient clearly expressed her desires to have the toe amputated, she states that she would rather have the source of infection gone and does not want to spread she also wants a quicker return to normal everyday activities. Patient wishes to proceed with left great toe amputation today. Is n.p.o. since midnight. I reviewed at length with the patient, the risks, potential complications, benefits, alternatives, expectations, and typical outcomes associated with the surgery. The risks and potential complications were explained in detail, including but not limited to infection, wound dehiscence or soft tissue complications, bleeding and hematoma, chronic edema, neuritis or nerve damage producing numbness or chronic pain, CRPS, failure to relieve pain or worsening pain, thick / painful / unsightly scar, limited motion / stiffness, malposition, delayed union, malunion, or nonunion, fracture, reaction to implants, anesthetic complications, venous thromboembolism, and deformity recurrence. I discussed the notion of no regrets with the patient as it pertains to complications and outcomes. The patient seemed to understand the nature of the proposed care and required convalescence. They asked appropriate questions, answered to their satisfaction. They are aware no guarantees can be made as to a satisfactory outcome and they understand there may be other possible unforeseen complications or outcomes not listed here that will be treated accordingly if they arise. There were no written or implied guarantees given to the patient. They gave informed consent to proceed. PDMP PDMP Reviewed: Not Reviewed Consult Attestations Medical Necessity Statement: Osteomyelitis left great toe require surgical intervention Coding Level of Care Code Acute Code for [facility] Diagnoses Diabetic peripheral neuropathy associated with type 2 diabetes mellitus E11.42 Cellulitis of left foot L03.116 Osteomyelitis of great toe of left foot M86.9
--- NOTE | 2025-01-27 07:29 | ECG_ITS ---
[facility] Test Date: 2025-01-27 Pat Name: Kaylee Ch Department: Room: 104 Gender: Female Ultrasound Applications Specialist: : 1955 Requested By: Alexander Ramos Order Number: [id number] Yasmine MD: Mj Espinoza M.D. Measurements Intervals [place] Rate: 89 P: 59 AK: 171 QRS: 78 QRSD: 94 T: 27 QT: 359 QTc: 438 Interpretive Statements SINUS RHYTHM POSSIBLE LEFT ATRIAL ENLARGEMENT [-0.1mV P-WAVE IN V1/V2] Compared to ECG 01/27/2025 05:51:19 No significant changes Electronically Signed On 01-31-2025 14:54:59 CDT by Alexis [email or web address]
--- NOTE | 2025-01-27 10:55 | PC.NURSE ---
off floor for surgery
--- NOTE | 2025-01-27 11:26 | ANES.PREANE2 ---
Pre-Anesthetic Assessment Height/Weight: Height 1.68 m Weight 83.007 kg Temp Pulse Resp BP Pulse Ox O2 Del Method 98 F 98 17 168/95 91 Room Air 01/27/25 11:19 01/27/25 11:19 01/27/25 11:19 01/27/25 11:19 01/27/25 11:19 01/27/25 11:19 Preop Diagnosis: Osteomyelitis left great toe Operation Date: 01/27/25 12:50 Proposed Procedures p Incision And Drainage left great toe vs possible amputation(Left) - Jr Ahuja DPM Familial anesthetic complications: none Was Beta Deedee taken within 24 hours: N/A Was Clonidine taken within 24 hours: N/A Last intake: > 8 hrs Social No alcohol and No tobacco Exam alert, oriented x 3, clear to auscultation bilaterally and regular rate & rhythm Airway Mallampati: Class II Dentition: other (missing) CV/HEM Atrial Fibrillation Metabolic Diabetes Mellitus and Thyroid Disease Anesthetic Plan ASA status: 4 Anesthesia: MAC Risk of > 500 ml blood loss (7ml/kg in children): No Medications/Allergies Home Medications ?Medication ?Instructions ?Recorded ?Confirmed ?Last Taken ?Type diazepam 10 mg tablet 10 mg PO BID PRN Sleep 08/28/19 01/26/25 01/25/25 History ascorbic acid 7.5 mg-vit E 7.5 1 tab PO DAILY@1000 11/12/20 01/26/25 01/25/25 History unit-biotin 1,250 mcg chewable tablet (Hair,Skin,Nails with Biotin) multivitamin 1 tab PO DAILY@1000 11/12/20 01/26/25 01/25/25 History insulin syringe-needle U-100 1 mL #100 ea 09/06/22 01/26/25 Unknown Rx 28 gauge x 1/2 (BD Insulin Syringe) ramelteon 8 mg tablet 8 mg PO BEDTIME 10/30/22 01/26/25 01/25/25 History cyanocobalamin (vitamin B-12) 1,000 mcg PO DAILY 01/03/23 01/26/25 01/25/25 History 1,000 mcg tablet (Vitamin B-12) Diabetic shoes #1 ea 04/11/23 01/26/25 Unknown Rx blood-glucose meter #1 ea 06/12/23 01/26/25 Unknown Rx blood sugar diagnostic (Blood #200 ea 06/15/23 01/26/25 Unknown Rx Glucose Test strips) blood-glucose meter (Accu-Chek #1 ea 06/27/23 01/26/25 Unknown Rx Guide Glucose Meter) blood sugar diagnostic (Accu-Chek #100 ea 07/26/23 01/26/25 Unknown Rx Guide test strips) lancets (Accu-Chek Softclix #200 ea 09/14/23 01/26/25 Unknown Rx Lancets) aspirin 325 mg tablet 325 mg PO DAILY 07/18/24 01/26/25 01/25/25 History atorvastatin 20 mg tablet 20 mg PO .DAILY@10AM 07/18/24 01/26/25 01/25/25 History cyclobenzaprine 10 mg tablet 10 mg PO TID PRN Muscle Spasm 07/18/24 01/26/25 01/13/25 History gabapentin 100 mg capsule 100 mg PO BID 07/18/24 01/26/25 01/25/25 History glimepiride 4 mg tablet 4 mg PO BID 07/18/24 01/26/25 01/25/25 History meloxicam 15 mg tablet 15 mg PO DAILY 07/18/24 01/26/25 01/25/25 History potassium chloride 20 mEq 20 meq PO .DAILY@10AM 07/18/24 01/26/25 01/25/25 History tablet,extended release propranolol 80 mg capsule,24 80 mg PO BID 10/30/24 01/26/25 01/25/25 History hr,extended release Diabetic Shoes with Inserts #1 ea 12/11/24 01/26/25 Unknown Rx mupirocin 2 % topical ointment 1 applic topical BID 2 weeks #22 12/11/24 01/26/25 01/25/25 Rx grams lamotrigine 200 mg tablet 200 mg PO BID 12/30/24 01/26/25 01/25/25 History insulin syringe-needle U-100 1 mL #100 ea 01/02/25 01/26/25 Unknown Rx 31 gauge x 5/16 (TRUEplus Insulin) cam boot to right #1 ea 01/05/25 01/26/25 Unknown Rx ciprofloxacin HCl 500 mg tablet 500 mg PO BID 14 days #28 tabs 01/19/25 01/26/25 01/25/25 Rx hydrocodone 7.5 mg-acetaminophen 1 tab PO Q6H pain 7 days #28 tabs 01/19/25 01/26/25 Unknown Rx 325 mg tablet duloxetine 60 mg capsule,delayed 120 mg PO QAM 01/26/25 01/26/25 01/25/25 History release fluoxetine 20 mg capsule 20 mg PO QAM 01/26/25 01/26/25 01/25/25 History levothyroxine 200 mcg tablet 200 mcg PO .DAILY@10AM 01/26/25 01/26/25 01/25/25 History lidocaine 5 % topical patch 1 patch topical DAILY PRN Pain 01/26/25 01/26/25 Unknown History (Lidoderm) olanzapine 5 mg tablet 5 mg PO BEDTIME 01/26/25 01/26/25 01/25/25 History quetiapine 400 mg tablet 400 mg PO BEDTIME 01/26/25 01/26/25 01/25/25 History semaglutide 0.25 mg or 0.5 mg (2 0.5 mg (0.736 mL) SUBCUT .weekly 01/27/25 Unknown Rx mg/3 mL) subcutaneous pen injector #3 mL (Gratafy) Allergies Allergy/AdvReac Type Severity Reaction Status Date / Time azithromycin (From Zithromax) Allergy rash Verified 01/27/25 11:18 cetirizine (From Zyrtec) Allergy rash Verified 01/27/25 11:18 lisinopril (From Zestril) Allergy ALGY-Swell Verified 01/27/25 11:18 Lip/Tongue/Throat metformin AdvReac Intermediate diarrhea Verified 01/27/25 11:18 topiramate (From Topamax) AdvReac Intermediate diarrhea Verified 01/27/25 11:18 Current Medications Generic Name Dose Route Start Last Admin Trade Name Freq PRN Reason Stop Dose Admin Aspirin 325 mg 01/27/25 09:00 01/27/25 08:17 Aspirin 325 Mg Tablet PO Not Given On Hold: 01/27/25 11:09 DAILY JACQUELINE Comment: Order held by Process Transfer Atorvastatin Calcium 20 mg 01/27/25 09:00 01/27/25 08:17 Atorvastatin 10 Mg Tablet PO Not Given On Hold: 01/27/25 11:09 DAILY JACQUELINE Comment: Order held by Process Transfer Diazepam 10 mg 01/26/25 17:42 01/26/25 21:46 Diazepam 5 Mg Tablet PO 10 mg On Hold: 01/27/25 11:09 BID PRN Administration Comment: Order held by Process Sleep Transfer Duloxetine HCl 120 mg 01/27/25 06:00 01/27/25 06:02 Duloxetine 60 Mg Capsule PO 120 mg On Hold: 01/27/25 11:09 QAM [facility] Administration Comment: Order held by Process Transfer Enoxaparin Sodium 90 mg 01/26/25 17:35 01/27/25 06:02 Enoxaparin 100 Mg/Ml Syringe 1 mg/kg (90 mg) 90 mg On Hold: 01/27/25 11:09 SUBCUT Administration Comment: Order held by Process Q12H JACQUELINE Transfer Fluoxetine HCl 20 mg 01/27/25 06:00 01/27/25 06:02 Fluoxetine 20 Mg Capsule PO 20 mg On Hold: 01/27/25 11:09 QAM JACQUELINE Administration Comment: Order held by Process Transfer Gabapentin 100 mg 01/26/25 18:00 01/27/25 08:17 Gabapentin 100 Mg Capsule PO Not Given On Hold: 01/27/25 11:09 BID [facility] Comment: Order held by Process Transfer Sodium Chloride 1,000 mls @ 100 mls/hr 01/26/25 17:35 01/27/25 03:56 Sodium Chloride 0.9% IV 100 mls/hr On Hold: 01/27/25 11:09 .Q10H JACQUELINE Administration Comment: Order held by Process Transfer Insulin Human Lispro 0 unit 01/26/25 18:00 01/27/25 07:10 Insulin Lispro 100 Unit/1 Ml SUBCUT Not Given On Hold: 01/27/25 11:09 TIDWM [facility] Comment: Order held by Process Protocol Transfer Lamotrigine 200 mg 01/26/25 18:00 01/27/25 08:18 Lamotrigine 100 Mg Tablet PO Not Given On Hold: 01/27/25 11:09 BID [facility] Comment: Order held by Process Transfer Olanzapine 5 mg 01/26/25 21:00 01/26/25 21:11 Olanzapine 5 Mg Tablet PO 5 mg On Hold: 01/27/25 11:09 BEDTIME JACQUELINE Administration Comment: Order held by Process Transfer Ondansetron HCl 4 mg 01/26/25 15:18 01/26/25 15:43 Ondansetron 2 Mg/Ml Sdv 2 Ml IVP 4 mg On Hold: 01/27/25 11:09 Q6H PRN Administration Comment: Order held by Process NAUSEA AND VOMITING Transfer Pantoprazole Sodium 40 mg 01/26/25 17:35 01/27/25 06:01 Pantoprazole 40 Mg Sdv IVP 40 mg On Hold: 01/27/25 11:09 Q12H JACQUELINE Administration Comment: Order held by Process Transfer Quetiapine Fumarate 100 mg/ 400 mg 01/26/25 21:28 01/26/25 21:46 Quetiapine Fumarate 300 mg PO 400 mg On Hold: 01/27/25 11:09 BEDTIME JACQUELINE Administration Comment: Order held by Process Transfer Sucralfate 1 gm 01/26/25 18:00 01/27/25 08:18 Sucralfate 1 Gm Tablet PO Not Given On Hold: 01/27/25 11:09 BID JACQUELINE Comment: Order held by Process Transfer [facility] Anesthesia Medical History (Updated 01/26/25 @ 16:19 by Alexander Ramos MD) 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 Left shoulder pain Hypothyroid Hyperlipidemia Hypertension Diabetes mellitus Suspected COVID-19 virus infection Hypothyroidism Chronic diarrhea Tension headache, chronic CVA (cerebral vascular accident) TIA (transient ischemic attack) History of aphasia Hx of kidney disease Hx of type 2 diabetes mellitus History of anemia History of GI bleed History of hypothyroidism Hx of primary hypertension History of bipolar disorder History of anxiety History of depression History of posttraumatic stress disorder (PTSD) Surgical History Hx of appendectomy History of back surgery Hx of cholecystectomy Hx of hysterectomy Hx of neck surgery Social History Smoking and tobacco/nicotine status: never used tobacco/nicotine Alcohol intake: current Alcohol intake frequency: holidays/special occasions only Substance/Drug Use: never Data Anesthesia 01/27/25 03:29 01/27/25 03:29 Short CBC 01/26/25 01/27/25 Range/Units 14:07 03:29 WBC 10.43 8.37 (3.29-11.43) 10^3/uL Hgb 15.60 13.60 (11.27-16.99) g/dL Hct 48.0 H 42.6 (36-47) % MCV 86.5 88.9 (85-98) fl Plt Count 347 247 (157-399) 10^3/cmm Neut % (Auto) 59.6 41.7 % Neut # (Auto) 6.22 3.48 (1.8-7.7) 10^3/uL BMP 01/26/25 01/27/25 14:07 03:29 Sodium 132 L 139 Potassium 4.3 4.0 Chloride 95 L 105 Carbon Dioxide 23 24 BUN 6 L 8 Creatinine 0.8 0.7 Glucose 195 H 110 Calcium 9.5 8.9 Cardiac Enzymes 01/26/25 01/26/25 01/26/25 Range/Units 17:59 21:09 23:47 Troponin T Baseline 20 H (0-10) ng/L Troponin T 120 Minute 21.63 H (0-10) ng/L Delta Troponin T 1.63 (0-10) ABS# Troponin T Hi Sens 6Hr 21.60 H (0-10) ng/L Troponin T Hi Sens 6Hr Delta 1.60 (0-12) ng/L NT-Pro-B Natriuret Pep 105 (0-125) pg/mL Liver Function 01/26/25 01/27/25 Range/Units 14:07 03:29 Total Bilirubin 0.3 0.2 (0.15-1.2) mg/dL AST 15 13 (0-32) U/L ALT 27 21 (0-33) U/L Alkaline Phosphatase 110 H 87 (35-105) U/L Albumin 4.4 3.6 (3.5-5.2) g/dL Urine 01/26/25 Range/Units 15:39 Urine Color Yellow (Yellow) Urine Appearance Clear (CLEAR) Urine pH 7.0 (5-7) Ur Specific [place] 1.003 L (1.005-1.030) Urine Protein Trace A (Negative) Urine Glucose (UA) Negative (Normal) Urine Ketones Negative (Negative) Urine Nitrate Negative (Negative) Urine Bilirubin Negative (Negative) Ur Leukocyte Esterase Negative (Negative) Urine RBC 0-2 (0-2) /hpf Urine WBC 0-5 (0-5) /hpf Coags 01/26/25 14:07 ESR 30 H PT 13.10 INR 0.93 APTT 27.5 C-Reactive Protein 3.0 Microbiology 01/26/25 15:02 Blood Culture - Preliminary Blood SPECIMEN COLLECTED 01/26/25 14:19 Blood Culture - Preliminary Blood SPECIMEN COLLECTED Cardiac Studies: Echocardiogram 01/26/25
[2025-01-27] MEDS: BUPivacaine 0.5% INJ 30 mL 15 ML INJECTION (12:10)
--- NOTE | 2025-01-27 12:11 | W.PM.OPSUD ---
Surgery/Procedure H&P Update DATE OF PROCEDURE: January 27, 2025 DATE H&P PERFORMED: 01/27/25 H&P UPDATE INFORMATION: I have reviewed H&P completed within last 30 days, I have examined patient prior to procedure, No changes to prior documentation and Risks and benefits of the procedure reviewed PREOP DIAGNOSIS: Osteomyelitis left great toe PLANNED PROCEDURE: Operation Date: 01/27/25 12:50 Proposed Procedures p Incision And Drainage left great toe vs possible amputation(Left) - Jr Ahuja DPM
--- NOTE | 2025-01-27 12:14 | P.BOP_ITS ---
Date of Procedure: 09/21/23 Surgeon: Jr Ahuja DPM Brine Room Laborer(s): Tesha Procedure(s) performed: Left great toe amputation. Findings of the procedure(s): Osteomyelitis left great toe. Estimated blood loss: 10 mL Specimen(s) removed: Left great toe sent to pathology for permanent Post-operative diagnosis: Osteomyelitis left great toe
--- NOTE | 2025-01-27 12:15 | P.OP_ITS ---
Operative Report Date of procedure: January 27, 2025 Pre-op diagnosis: Osteomyelitis left great toe. Post-op diagnosis: Osteomyelitis left great toe Post-op findings: Devitalized bone at distal and proximal phalanx left great toe Procedure done: Left great toe amputation. CPT code 60517 Implants: 2-0 Vicryl, 4-0 nylon Pathology: Left great toe to pathology for permanent Surgeon: Jr Ahuja DPM Information Systems Consultant: Tesha Estimated blood loss: 10 16 IV fluids: See intraoperative documentations Urine output: No urine output Complications: None Brief History: Patient admitted for atrial fibrillation and left great toe osteomyelitis. Wound culture left great toe 12/29/2024 significant for Pseudomonas, has failed ciprofloxacin 500 mg twice daily outpatient X-ray shows erosive and destructive changes at the left distal and proximal phalanx at the hallux interphalangeal joint consistent with osteomyelitis Discussed treatment options with patient at length including limb salvage efforts which would include hospitalization, debridement down to bone, infectious disease consultation and likely PICC line for minimum of 6 weeks of IV antibiotics. Also discussed amputation of the left great toe. Patient is most interested in proceeding with amputation states that she does not want to have a strong treatment plan that still has risks of failure ending an amputation anyways. Had further discussion with the patient this morning bedside in regards to her left great toe, I informed her that salvage efforts to keep the toe are favorable she has no leukocytosis, ESR is 30, salvage efforts would entail debridement and bone culture with long-term course of IV antibiotics in my opinion would have a favorable outcome. Patient clearly expressed her desires to have the toe amputated, she states that she would rather have the source of infection gone and does not want to spread she also wants a quicker return to normal everyday activities. Patient wishes to proceed with left great toe amputation today. Is n.p.o. since midnight. I reviewed at length with the patient, the risks, potential complications, benefits, alternatives, expectations, and typical outcomes associated with the surgery. The risks and potential complications were explained in detail, inclu ding but not limited to infection, wound dehiscence or soft tissue complications, bleeding and hematoma, chronic edema, neuritis or nerve damage producing numbness or chronic pain, CRPS, failure to relieve pain or worsening pain, thick / painful / unsightly scar, limited motion / stiffness, malposition, delayed union, malunion, or nonunion, fracture, reaction to implants, anesthetic complications, venous thromboembolism, and deformity recurrence. I discussed the notion of no regrets with the patient as it pertains to complications and outcomes. The patient seemed to understand the nature of the proposed care and required convalescence. They asked appropriate questions, answered to their satisfaction. They are aware no guarantees can be made as to a satisfactory outcome and they understand there may be other possible unforeseen complications or outcomes not listed here that will be treated accordingly if they arise. There were no written or implied guarantees given to the patient. They gave informed consent to proceed. Procedure: Under mild sedation the patient was brought to the operating room and remained on the gurney in supine position. A timeout was performed. Anesthesia was then administered by the anesthesia service. Local anesthesia injected by myself consisting of one-to-one mixture of 1% lidocaine and 0.5 send Marcaine plain in a left Lanza block fashion. Well-padded pneumatic tourniquet applied to the left ankle. Left lower extremity was then scrubbed, prepped and draped utilizing normal aseptic technique. Left foot was elevated and tourniquet inflated to 250 mmHg. Attention was directed to the left great toe where incision was planned out and carried out with a #15 blade full-thickness with dorsal and plantar incisions encompassing the left first metatarsophalangeal joint with fishmouth incision with skin adequate for closure, the left great toe was sharply disarticulated through the first metatarsal phalangeal joint and passed from the operative field. Of note at the hallux interphalangeal joint both involving the distal phalanx and proximal phalanx bone was devitalized consistent with osteomyelitis. This was sent to pathology for permanent/gross anatomical review. The incision was irrigated with copious amounts of sterile saline solution. Extensor and flexor tendons were transected under traction and all bleeders were ligated and cauterized as necessary. After further irrigation the amputation site was reapproximated with deep fascia reapproximated with 3-0 Vicryl, subcutaneous tissue reapproximated 4-0 Vicryl and skin with 4-0 nylon. Of note the first metatarsal head was visualized and appeared to have appropriate density and color without indications of infection. The incision was dressed with Xeroform, sterile gauze, Kerlix and Emil wrap. Tourniquet was deflated and a prompt hyperemic response is noted to the distal digits of the left foot. Patient tolerated the procedure well and was transferred to the PACU with vital signs stable and vascular status intact. Following a period of postoperative monitoring she will be transferred back to cardiac stepdown unit.
--- NOTE | 2025-01-27 13:15 | ANE.PACU2 ---
Inpatient post-anesthesia follow up: Airway intact: Yes Vital signs: Temperature 97.2 F Pulse Rate 87 Respiratory Rate 13 Blood Pressure 159/88 Pulse Oximetry 96 Oxygen Delivery Me thod Room Air Oxygen Flow Rate 6 Fraction of Inspir ed Oxygen Hydration adequate: Yes Nausea and vomiting: No Pain level: 1 Mental status: Baseline
--- NOTE | 2025-01-27 16:22 | US_ITS ---
WS: [id number] THYROID ULTRASOUND HISTORY: hyperthyroidism COMPARISON: None available. Right lobe: 1.5 cm x 1.3 cm x 2.8 cm (w x ap x l). Volume: 2.6 cm3. Normal size and echotexture. No significant are dominant nodules are present. Left lobe: 0.8 cm x 1.4 cm x 3.0 cm (w x ap x l). Volume: 1.6 cm3. Normal size and echotexture. No significant or dominant nodules are present. Isthmus: 0.4 cm. US/US thyroid 69982 IMPRESSION: Normal thyroid ultrasound.
--- NOTE | 2025-01-27 16:22 | P.PN_ITS ---
Subjective 2 Subjective: Patient was seen this morning, currently alert oriented x 3, following commands, denies any fevers, chills, cough, no nausea, vomiting, she remains off Cardizem drip, plans on surgical intervention today Vitals/I&O/Wt Last Vital Signs Temp 97.2 F L 01/27/25 13:10 Pulse 87 01/27/25 13:32 Resp 13 01/27/25 13:32 BP 159/88 01/27/25 13:32 Pulse Ox 96 01/27/25 13:32 O2 Del Method Room Air 01/27/25 13:10 O2 Flow Rate 6 01/27/25 12:55 01/27/25 01/27/25 01/27/25 06:59 14:59 22:59 Intake Total 1000 / 2260 300 / 300 Output Total 5 / 5 Balance 1000 / 2260 295 / 295 Weight last 48 hrs Weight 83.007 kg Weight 83.325 kg Weight 83.37 kg Weight 86.183 kg Physical Exam 2 Const: COMMON NORMALS: no acute distress and patient oriented x3 Resp: COMMON NORMALS: normal respiratory effort, No retractions, No use of accessory muscles and clear to auscultation bilaterally AUSCULTATION: clear to auscultation bilaterally Cardio: COMMON NORMALS: regular rate, S1 normal heart sound present and S2 normal heart sound present RATE: regular rate RHYTHM: abnormal rhythm irregularly irregular HEART SOUNDS: S1 normal heart sound present and S2 normal heart sound present GI: COMMON NORMALS: Normal to inspection, nondistended, normoactive bowel sounds present and non-tender Extremity: COMMON NORMALS: no pedal edema Neuro: COMMON NORMALS: patient oriented x3 Psych: COMMON NORMALS: mental status grossly normal Data 01/27/25 03:29 01/27/25 03:29 Micro: Microbiology 01/26/25 15:02 Blood Culture - Preliminary Blood NEGATIVE TO DATE 01/26/25 14:19 Blood Culture - Preliminary Blood NEGATIVE TO DATE A&P Assessment and plan 1. Atrial fibrillation with rapid ventricular response: 2. Diabetic foot infection: Plan: Diabetic foot infection, left foot -History of left great toe osteomyelitis, -History of hardware infection, status post removal -Wound cultures growing Pseudomonas Plan - Spoke to podiatry service - Follow blood cultures - Start antibiotics after surgical intervention today - Will likely cover with broad-spectrum vancomycin, cefepime Atrial fibrillation with rapid ventricular response - Cardizem drip, wean off to p.o. Cardizem -Therapeutic Lovenox Low TSH, concerns for hyperthyroidism - Recheck TSH, T3, T4, thyroid ultrasound Type 2 diabetes mellitus, low-dose sliding scale Full code Lovenox for DVT prophylaxis PDMP PDMP Reviewed: Last Reviewed 01/26/25 16:04 by Alexander Ramos MD Attestations 2 Medical Necessity Statement*: Patient requires hospitalization diabetic foot infection requiring surgical intervention, IV antibiotics Diagnoses Atrial fibrillation with rapid ventricular response I48.91 Diabetic foot infection E11.628; L08.9
--- NOTE | 2025-01-27 16:27 | PHA.VACGOAL ---
Vancomycin Goal - Goal Vancomycin Goal:: 10-15 mg/L Vancomycin Indication:: Other - Therapy Current therapy:: Other Antibiotic (CEFTRIAXONE) Day of therpy:: Day []of [] . Actual body weight (kg): 183 lb - Data Labs: WBC 8.37 10^3/uL (3.29-11.43) 01/27/25 03:29 RBC 4.79 10^6/uL (3.85-5.65) 01/27/25 03:29 Hgb 13.60 g/dL (11.27-16.99) 01/27/25 03:29 Hct 42.6 % (36-47) 01/27/25 03:29 MCV 88.9 fl (85-98) 01/27/25 03:29 MCH 28.4 pg (27-33) 01/27/25 03:29 MCHC 31.9 g/dL (30-55) 01/27/25 03:29 RDW 12.5 % (12.1-15.1) 01/27/25 03:29 Sodium 139 mmol/L (136-145) 01/27/25 03:29 Potassium 4.0 mmol/L (3.5-5.1) 01/27/25 03:29 Chloride 105 mmol/L (98-107) 01/27/25 03:29 Carbon Dioxide 24 mmol/L (22-29) 01/27/25 03:29 Anion Gap 14.0 (5-19) 01/27/25 03:29 BUN 8 mg/dL (8-23) 01/27/25 03:29 Creatinine 0.7 mg/dL (0.5-0.9) 01/27/25 03:29 GFR Calculation 82.7 mL/min (90-130) L 01/27/25 03:29 Last dialysis session:: N/A Treatment plan:: new consult Regimen:: 1000 MG DOSE GIVEN BEFORE SURGERY STARTED ON MAINTENANCE DOSE OF 1250 MG Q12H PER DOSING PROTOCOL Follow up:: WILL CONTINUE TO MONITOR AND FOLLOW UP DAILY
[2025-01-27] MEDS: cefepime 2,000 mg SDV 2000 MG IVP ×2 (18:15→23:34)
[2025-01-27 20:18] LABS: Free T4 Free Thyroxine 1.89 ng/dL (0.82-1.77); Thyroid Stimulating Hormone 0.02 uIU/mL (0.27-4.20)
[2025-01-27] MEDS: morphine 4 mg/mL SDV 1 mL 2 MG IVP (21:32)
[2025-01-28] VITALS (10 sets, daily range): BP systolic 134–156; BP diastolic 68–118; PULSE 81–95; RESP 12–20; TEMP 36.6–36.7; O2SAT 92–95
[2025-01-28 03:31] LABS: Hematocrit 39.1 % (36-47); Hemoglobin 12.40 g/dL (11.27-16.99); Mean Corpuscular HGB Conc 31.7 g/dL (30-55); Mean Corpuscular Hemoglobin 28.9 pg (27-33); Mean Corpuscular Volume 91.1 fl (85-98); Nucleated Red Blood Cells % 0 %; Platelet Count 221 10^3/cmm (157-399); Red Blood Count 4.29 10^6/uL (3.85-5.65); White Blood Count 8.37 10^3/uL (3.29-11.43)
[2025-01-28] MEDS: morphine 4 mg/mL SDV 1 mL 2 MG IVP ×4 (03:33→22:10)
[2025-01-28 03:57] LABS: Alanine Aminotransferase 17 U/L (0-33); Albumin Level 3.5 g/dL (3.5-5.2); Alkaline Phosphatase 84 U/L (35-105); Anion Gap 14.8 (5-19); Aspartate Amino Transferase 12 U/L (0-32); Blood Urea Nitrogen 8 mg/dL (8-23); Calcium 8.5 mg/dL (8.5-10.5); Carbon Dioxide 26 mmol/L (22-29); Chloride 104 mmol/L (98-107); Creatinine Clr Calc Pharmacy 63.1570; Globulin 2.7 g/dL (1.3-4.6); Glucose 76 mg/dL (65-115); Magnesium 1.9 mg/dL (1.7-2.3); Osmolality Calculated 289 mOsm/kg (285-295); Potassium 3.8 mmol/L (3.5-5.1); Sodium 141 mmol/L (136-145); Total Protein 6.2 g/dL (6.6-8.7)
[2025-01-28] MEDS: pantoprazole 40 mg SDV IVP ×2 (05:00→17:32)
--- NOTE | 2025-01-28 06:42 | PM.PN ---
Subjective Subjective: Patient seen bedside this a.m. 1 day status post left great toe amputation secondary to osteomyelitis. Denies any complaints, denies any acute events overnight. Tolerating regular diet. Vitals/I&O/Wt Last Vital Signs Temp 98.1 F 01/27/25 23:46 Pulse 82 01/28/25 05:33 Resp 14 01/28/25 03:36 BP 150/74 01/28/25 03:36 Pulse Ox 95 01/28/25 03:36 O2 Del Method Room Air 01/28/25 03:36 O2 Flow Rate 6 01/27/25 12:55 01/27/25 01/27/25 01/28/25 14:59 22:59 06:59 Intake Total 300 / 300 1936 / 2236 250 / 2486 Output Total 5 / 5 Balance 295 / 295 1935 / 2231 250 / 2481 Weight last 48 hrs Weight 182 lb 11.2 oz Weight 183 lb Weight 183 lb 11.2 oz Weight 183 lb 12.8 oz Weight 190 lb Physical Exam Narrative: GENERAL: Patient is alert and oriented ?3 and in no acute distress. The following is a focused left lower extremity exam. VASCULAR: Dorsalis pedis and posterior tibial arteries palpable +2. Capillary refill time less than 3 seconds to the distal hallux bilaterally. Calf is supple and nontender proximally and distally. Edema at the left great toe. NEUROLOGICAL: Protective sensation intact to light touch. DERMATOLOGICAL: Surgical dressing is clean dry and intact no strikethrough bleeding and no erythema proximal to surgical dressing. MUSCULOSKELETAL: Status post left great toe amputation. Data 01/28/25 03:18 01/28/25 03:18 Micro: Microbiology 01/26/25 15:02 Blood Culture - Preliminary Blood NEGATIVE TO DATE 01/26/25 14:19 Blood Culture - Preliminary Blood NEGATIVE TO DATE A&P Assessment and plan 1. Diabetic peripheral neuropathy associated with type 2 diabetes mellitus: 2. Cellulitis of left foot: Resolved 3. Osteomyelitis of great toe of left foot: Plan: Patient admitted for atrial fibrillation and left great toe osteomyelitis. 1 day status post left great toe amputation secondary to osteomyelitis date of operation 01/27/2023. PT to dispense postop shoe left foot. Weightbearing as tolerated left foot. Elevate left foot while resting. Keep surgical dressing clean, dry and intact until follow-up visit in clinic outpatient. Anticipate 2 weeks of oral antibiotics at discharge. Patient will follow-up in podiatry clinic this 01/30/2025 at 1:00 PM. PDMP PDMP Reviewed: Not Reviewed Attestations Medical Necessity Statement*: Per primary Coding Level of Care Code Acute Code for [facility] Fwd Diagnoses Diabetic peripheral neuropathy associated with type 2 diabetes mellitus E11.42 Cellulitis of left foot L03.116 Osteomyelitis of great toe of left foot M86.9
[2025-01-28] MEDS: cefepime 2,000 mg SDV 2000 MG IVP ×2 (07:46→17:32)
[2025-01-28] MEDS: ATORVASTATIN 10 MG TABLET 20 MG PO (07:47)
--- NOTE | 2025-01-28 09:15 | PC.NURSE ---
Patient up to ambulate to bathroom. Heart rate increased to 150s. Informed Dr Ramos. Administered cardizem dose early per his instruction. Will ambulate again in ~1 hour.
--- NOTE | 2025-01-28 09:32 | PC.SOCIAL ---
IMM Updated Updated pt on IMM. No questions voiced. Provided pt a copy. Initialed, dated, & timed a copy & placed in chart.
--- NOTE | 2025-01-28 10:30 | PC.NURSE ---
heart rate stable with exertion at this time. HR at 107 in SR. Strip posted. Informed Dr Ramos
--- NOTE | 2025-01-28 11:00 | PM.DCS ---
Discharge Providers Date of Admission: 01/26/25 16:50 Date of Discharge: January 28, 2025 Attending Provider at Admission: Alexander Ramos MD Attending Provider at Discharge: Alexander Ramos MD Primary Care Provider: Carter Yusuf MD Diagnoses at Discharge Discharge Diagnosis 1. Diabetic peripheral neuropathy associated with type 2 diabetes mellitus: 2. Cellulitis of left foot: 3. Osteomyelitis of great toe of left foot: Reason for Visit Reason for Visit: sent for admit-removing toe Hospital Course Hospital Course Kaylee Ch is a 69 year old female history of type 2 diabetes, hypertension, hyperlipidemia, history of TIA, who presents to [facility] due to 2 concerns for left foot great toe swelling, erythema, with tachycardia. Currently patient is alert oriented x 3, following all commands, she denies any fevers, no chills, she does report chest palpitations, no chest pain, no shortness of breath. She was seen by Dr. Ahuja this morning, she has had increased swelling of her left great toe, she has had cultures that have grown Pseudomonas she has been on ciprofloxacin but continues to have increased swelling and tenderness of her left great toe. There is also concerns for atrial fibrillation, she was found to have A-fib, we are emergency room heart rates as high as 145 placed on a Cardizem drip This is a 69-year-old female who presented to [facility] for diabetic foot infection, with history of Pseudomonas infection, who presents to [facility] for diabetic foot infection, status post IV antibiotics, left great toe amputation secondary to osteomyelitis , tolerated procedure well, will be discharged on oral antibiotics, with close follow-up with podiatry as outpatient Patient was found to have A-fib with RVR during the hospitalization, requiring Cardizem drip, transition to p.o. Cardizem, CHADS2 Vasc score is 4, discussed risk and benefits of anticoagulant therapy, she voiced understanding, all question answered, agreed to proceed. Will be discharged on Eliquis 5 mg twice daily, with close follow-up with cardiology as outpatient. Patient was advised if she develops any bloody or black stools to me to go to the emergency room. She has any significant falls or head trauma to go to the emergency room. Have primary care provider recheck hemoglobin in 1 week. Patient was advised if she has any strokelike symptoms immediately call 911. Physical Exam Const: COMMON NORMALS: no acute distress and patient oriented x3 Resp: COMMON NORMALS: normal respiratory effort, No retractions, No use of accessory muscles and clear to auscultation bilaterally AUSCULTATION: clear to auscultation bilaterally Cardio: COMMON NORMALS: regular rate, S1 normal heart sound present and S2 normal heart sound present RATE: regular rate RHYTHM: abnormal rhythm irregularly irregular HEART SOUNDS: S1 normal heart sound present and S2 normal heart sound present GI: COMMON NORMALS: Normal to inspection, nondistended, normoactive bowel sounds present and non-tender Extremity: COMMON NORMALS: no pedal edema NARRATIVE EXTREMITY EXAM: Surgical site wrapped Neuro: COMMON NORMALS: patient oriented x3 Psych: COMMON NORMALS: mental status grossly normal Discharge Data Studies Completed and Pending Completed Studies During Hospitalization Category Date Time Status CV. echo complete* [id number] Routine Ultrasound 01/26/25 17:39 [place] thyroid [id number] Routine Ultrasound 01/27/25 16:22 Completed Pending at discharge Category Date Time Status Blood Culture Stat Lab 01/26/25 15:02 Results Complete Blood Count w/Auto AM LABS Lab 01/29/25 04:00 Ordered Comprehensive Metabolic Panel AM LABS Lab 01/29/25 04:00 Ordered Magnesium AM LABS Lab 01/29/25 04:00 Ordered Phosphorus AM LABS Lab 01/29/25 04:00 Ordered Vancomycin Trough Timed Lab 01/29/25 10:00 Ordered Pathology: Surgical [PTH] Routine Pth 01/27/25 12:46 Received Radiology Impressions Thyroid Ultrasound 01/27/25 16:22 IMPRESSION: Normal thyroid ultrasound. Laboratory Results WBC 8.37 10^3/uL (3.29-11.43) 01/28/25 03:18 RBC 4.29 10^6/uL (3.85-5.65) 01/28/25 03:18 Hgb 12.40 g/dL (11.27-16.99) 01/28/25 03:18 Hct 39.1 % (36-47) 01/28/25 03:18 MCV 91.1 fl (85-98) 01/28/25 03:18 MCH 28.9 pg (27-33) 01/28/25 03:18 MCHC 31.7 g/dL (30-55) 01/28/25 03:18 RDW 12.5 % (12.1-15.1) 01/28/25 03:18 Plt Count 221 10^3/cmm (157-399) 01/28/25 03:18 MPV 9.1 fL (7.4-10.4) 01/28/25 03:18 Neut % (Auto) 48.1 % 01/28/25 03:18 Lymph % (Auto) 34.9 % 01/28/25 03:18 Ocean % (Auto) 10.9 % 01/28/25 03:18 Eos % (Auto) 5.3 % 01/28/25 03:18 Baso % (Auto) 0.6 % 01/28/25 03:18 Neut # (Auto) 4.03 10^3/uL (1.8-7.7) 01/28/25 03:18 Lymph # (Auto) 2.9 10^3/uL (0.8-4.8) 01/28/25 03:18 Ocean # (Auto) 0.9 10^3/uL (0.2-0.9) 01/28/25 03:18 Eos # (Auto) 0.4 10^3/uL (0.0-0.8) 01/28/25 03:18 Baso # (Auto) 0.1 10^3/uL (0.0-0.1) 01/28/25 03:18 Nucleated RBC % (auto) 0 % 01/28/25 03:18 Nucleated RBCs # 0.0 /100WBC 01/28/25 03:18 ESR 30 mm/hr (0-15) H 01/26/25 14:07 PT 13.10 SECONDS (12.1-14.9) 01/26/25 14:07 INR 0.93 (0.8-1.2) 01/26/25 14:07 APTT 27.5 SECONDS (23.9-36.7) 01/26/25 14:07 Sodium 141 mmol/L (136-145) 01/28/25 03:18 Potassium 3.8 mmol/L (3.5-5.1) 01/28/25 03:18 Chloride 104 mmol/L (98-107) 01/28/25 03:18 Carbon Dioxide 26 mmol/L (22-29) 01/28/25 03:18 Anion Gap 14.8 (5-19) 01/28/25 03:18 BUN 8 mg/dL (8-23) 01/28/25 03:18 Creatinine 0.9 mg/dL (0.5-0.9) 01/28/25 03:18 GFR Calculation 61.9 mL/min (90-130) L 01/28/25 03:18 Glucose 76 mg/dL (65-115) 01/28/25 03:18 POC Glucose 79 mg/dL (70-110) 01/28/25 06:20 Estimat Average Glucose 128 01/26/25 17:59 Hemoglobin A1c 6.1 % (4.0-6.0) H 01/26/25 17:59 Calculated Osmolality 289 mOsm/kg (285-295) 01/28/25 03:18 Lactic Acid 1.4 mmol/L (0.5-2.2) 01/26/25 17:59 Calcium 8.5 mg/dL (8.5-10.5) 01/28/25 03:18 Phosphorus 3.1 mg/dL (2.5-4.5) 01/28/25 03:18 Magnesium 1.9 mg/dL (1.7-2.3) 01/28/25 03:18 Total Bilirubin 0.3 mg/dL (0.15-1.2) 01/28/25 03:18 AST 12 U/L (0-32) 01/28/25 03:18 ALT 17 U/L (0-33) 01/28/25 03:18 Alkaline Phosphatase 84 U/L (35-105) 01/28/25 03:18 Troponin T Baseline 20 ng/L (0-10) H 01/26/25 17:59 Troponin T 120 Minute 21.63 ng/L (0-10) H 01/26/25 21:09 Delta Troponin T 1.63 ABS# (0-10) 01/26/25 21:09 Troponin T Hi Sens 6Hr 21.60 ng/L (0-10) H 01/26/25 23:47 Troponin T Hi Sens 6Hr Delta 1.60 ng/L (0-12) 01/26/25 23:47 C-Reactive Protein 3.0 mg/L (0.0-4.9) 01/26/25 14:07 NT-Pro-B Natriuret Pep 105 pg/mL (0-125) 01/26/25 17:59 Total Protein 6.2 g/dL (6.6-8.7) L 01/28/25 03:18 Albumin 3.5 g/dL (3.5-5.2) 01/28/25 03:18 Globulin 2.7 g/dL (1.3-4.6) 01/28/25 03:18 Triglycerides 133 mg/dL (0-150) 01/26/25 17:59 Cholesterol 154 mg/dL (0-200) 01/26/25 17:59 LDL Cholesterol, Calc 68 mg/dL (50-129) 01/26/25 17:59 HDL Cholesterol 59 mg/dL (60-100) L 01/26/25 17:59 LDL/HDL Ratio 1.15 RATIO (0.00-3.22) 01/26/25 17:59 Cholesterol/HDL Ratio 2.61 mg/dL (0.0-4.40) 01/26/25 17:59 Procalcitonin 0.03 ng/mL (0-0.5) 01/26/25 17:59 TSH 0.02 uIU/mL (0.27-4.20) L 01/27/25 03:29 Free T4 1.89 ng/dL (0.82-1.77) H 01/27/25 03:29 Free T3 2.5 PG/ML (2.0-4.4) 01/27/25 03:29 Urine Color Yellow (Yellow) 01/26/25 15:39 Urine Appearance Clear (CLEAR) 01/26/25 15:39 Urine pH 7.0 (5-7) 01/26/25 15:39 Ur Specific [place] 1.003 (1.005-1.030) L 01/26/25 15:39 Urine Protein Trace (Negative) A 01/26/25 15:39 Urine Glucose (UA) Negative (Normal) 01/26/25 15:39 Urine Ketones Negative (Negative) 01/26/25 15:39 Urine Blood Negative (Negative) 01/26/25 15:39 Urine Nitrate Negative (Negative) 01/26/25 15:39 Urine Bilirubin Negative (Negative) 01/26/25 15:39 Urine Urobilinogen 0.2 mg/dL (Negative) 01/26/25 15:39 Ur Leukocyte Esterase Negative (Negative) 01/26/25 15:39 Urine RBC 0-2 /hpf (0-2) 01/26/25 15:39 Urine WBC 0-5 /hpf (0-5) 01/26/25 15:39 Ur Squamous Epith Cells 0-5 /hpf (0-5) 01/26/25 15:39 Amorphous Sediment Not Reportable 01/26/25 15:39 Urine Bacteria None seen /hpf (NONE) 01/26/25 15:39 Hyaline Casts 0-4 /lpf H 01/26/25 15:39 Vitals Last Vital Signs Temp 97.8 F 01/28/25 07:19 Pulse 88 01/28/25 07:19 Resp 14 01/28/25 07:46 BP 138/68 01/28/25 07:19 Pulse Ox 93 01/28/25 07:19 O2 Del Method Room Air 01/28/25 07:19 O2 Flow Rate 6 01/27/25 12:55 Discharge Plan Discharge Patient Disposition: Home Condition: Stable Prescriptions: New aspirin 325 mg Tablet 81 mg PO DAILY 30 Days Qty: 30 0RF Eliquis 5 mg tablet 5 mg PO BID 30 Days Qty: 60 0RF diltiazem HCl [Cardizem LA] 120 mg tablet extended release 24 hr 120 mg PO BID 30 Days Qty: 60 0RF ciprofloxacin HCl 500 mg tablet 500 mg PO BID 7 Days Qty: 14 0RF doxycycline hyclate 100 mg tablet 100 mg PO BID 7 Days Qty: 14 0RF Continued diazepam 10 mg tablet 10 mg PO BID PRN (Reason: Sleep) lamotrigine 200 mg tablet 200 mg PO BID hydrocodone-acetaminophen 7.5-325 mg tablet 1 tab PO Q6H 7 Days Qty: 28 0RF ramelteon 8 mg tablet 8 mg PO BEDTIME mupirocin 2 % ointment 1 applic topical BID 14 Days Qty: 22 1RF Ozempic 0.25 mg or 0.5 mg (2 mg/3 mL) pen injector 0.5 mg SUBCUT .weekly Qty: 3 11RF Rx Instructions: Sunday multivitamin Tablet 1 tab PO DAILY@1000 Hair, Skin, Nails with Biotin 7.5-7.5-1,250 mg-unit-mcg Tablet,Chewable 1 tab PO DAILY@1000 cyanocobalamin (vitamin B-12) [Vitamin B-12] 1,000 mcg Tablet 1,000 mcg PO DAILY propranolol 80 mg capsule,extended release 24 hr 80 mg PO BID cyclobenzaprine 10 mg tablet 10 mg PO TID PRN (Reason: Muscle Spasm) atorvastatin 20 mg tablet 20 mg PO .DAILY@10AM glimepiride 4 mg tablet 4 mg PO BID gabapentin 100 mg capsule 100 mg PO BID potassium chloride 20 mEq tablet extended release 20 meq PO .DAILY@10AM olanzapine 5 mg tablet 5 mg PO BEDTIME fluoxetine 20 mg capsule 20 mg PO QAM duloxetine 60 mg capsule,delayed release(DR/EC) 120 mg PO QAM lidocaine [Lidoderm] 5 % adhesive patch,medicated 1 patch topical DAILY PRN (Reason: Pain) Rx Instructions: leave on most painful area for up to 12 hrs then take off levothyroxine 200 mcg tablet 200 mcg PO .DAILY@10AM quetiapine 400 mg tablet 400 mg PO BEDTIME Discontinued ciprofloxacin HCl 500 mg tablet 500 mg PO BID 14 Days Qty: 28 0RF aspirin 325 mg Tablet 325 mg PO DAILY meloxicam 15 mg tablet 15 mg PO DAILY No Action (DME) cam boot to right See Rx Instructions .Route .MEDSUPPLY Qty: 1 0RF Rx Instructions: As directed (DME) Diabetic shoes See Rx Instructions .Route .MEDSUPPLY Qty: 1 0RF Rx Instructions: Heel lift and insoles. Last HgbA1C 5.7 on 02/01. (DME) Diabetic Shoes with Inserts See Rx Instructions .Route .MEDSUPPLY Qty: 1 0RF Rx Instructions: As directed (DME) insulin syringe-needle U-100 [BD Insulin Syringe] 1 mL 28 gauge x 1/2 syringe See Rx Instructions .Route Qty: 100 11RF Rx Instructions: As directed (DME) blood-glucose meter Misc See Rx Instructions .MEDSUPPLY Qty: 1 0RF Rx Instructions: Check TID (DME) Blood Glucose Test Strip See Rx Instructions .MEDSUPPLY Qty: 200 12RF Rx Instructions: Use with glucometer to check blood sugar three times a day (DME) blood-glucose meter [Accu-Chek Guide Glucose Meter] Misc See Rx Instructions .Route Qty: 1 0RF Rx Instructions: As directed (DME) Accu-Chek Guide test strips Strip See Rx Instructions .Route Qty: 100 11RF Rx Instructions: check TID (DME) lancets [Accu-Chek Softclix Lancets] Misc See Rx Instructions .Route Qty: 200 11RF Rx Instructions: use as directed three times a day (DME) insulin syringe-needle U-100 [TRUEplus Insulin] 1 mL 31 gauge x 5/16 syringe See Rx Instructions .ROUTE .COMPLEX Qty: 100 3RF Dose Instruction: TO USE WITH LANTUS Rx Instructions: TO USE WITH LANTUS Cytometry Technologist OK for DC: Cardiology Referrals: Tawny Londono MD [Physician, Cardiology] - 1-3 days Carter Yusuf MD [Primary Care Provider, Family Practice] - 02/05/25 12:00 pm Discharge Diet: Advance as tolerated Discharge Activity: Limit activity as instructed Patient Instructions: Acute Wound Care (DC), Opioid Safety, Post Anesthesia Care, Patient Portal & Brianna Instructions Activity Restrictions/Additional Instructions: Recommendations from Dr. Ahuja D.P.M. Please keep surgical dressing clean, dry and intact until follow-up visit with Dr. Ahuja in podiatry clinic scheduled this Sunday01/30/2025 at 1:00 PM. Weightbearing as tolerated. Please wear a postoperative shoe to the left foot when weightbearing. Elevate left foot while resting. Contact podiatry clinic with any questions or concerns [phone] - If you develop bloody or black stools please go to emergency room - I am discharging on Eliquis 5 mg twice daily, have primary care provider recheck your hemoglobin - If you have any significant falls please go to the emergency room ? Follow-up with cardiology in 1 week Discharge Attestations Time Spent in Discharge Care*: greater than 30 min Quality Metrics Clinical Quality Measures [ No reported AMI, CVA or VTE this stay] Coding Level of Care Code 28244 Total time (in minutes) for Discharge: 45 Diagnoses Diabetic peripheral neuropathy associated with type 2 diabetes mellitus E11.42 Cellulitis of left foot L03.116 Osteomyelitis of great toe of left foot M86.9
--- NOTE | 2025-01-28 13:23 | PC.NURSE ---
patient up in room attempting to find her toothbrush . Found patient down on the floor in her door way. Fall was not witnessed. Patient reports being up and felt slightly dizzy and c/o migraine from this morning. She says, I fell on my butt to protect my foot. Informed Dr Ramos and received orders to have bilateral hip xray and ct head without constrast. Provided patient education to call for assistance prior to getting up. Patient verbalized complete understanding.
--- NOTE | 2025-01-28 13:29 | XR_ITS ---
WS: [id number] 2 views of both hips, AP pelvis, 01/28/2025 Clinical Data: post fall Comparison: Right hip, 03/08/2019, AP pelvis, 11/26/2017. Findings: The hips are intact with no fractures or dislocations. No narrowing, sclerosis, cyst formation or fragmentation of the femoral heads is seen. The pelvis shows no fractures. There is a posterior lumbar fusion. There are midline pelvic sutures. The bladder is partly full. XR/XR hip BI 2V wo/w pel [id number] Impression: Negative pelvis and both hips.
--- NOTE | 2025-01-28 13:30 | CT_ITS ---
WS: [id number] CT HEAD NONCONTRAST HISTORY: post fall TECHNIQUE: Contiguous axial imaging performed through the brain. Bone and soft tissue windows. Sagittal and coronal reformats reviewed. All CT scans at [facility] use at least one of these dose optimization techniques: automated exposure control; mA and/or kV adjustment per patient size (includes targeted exams where dose is matched to clinical indication); or iterative reconstruction. DLP: 1104.68 mGy.cm COMPARISON: 04/14/2020 No acute intracranial hemorrhage, midline shift or mass effect. Mild atrophy and mild small vessel changes. No infarct. No acute edema. Ventricles: Normal size with no hydrocephalus. No inferior displacement of the cerebellar tonsils. Paranasal sinuses: As visualized are clear. Mastoid air cells: Well pneumatized. Calvarium and scalp: Skull is intact with no soft tissue edema or swelling. CT/CT head wo con* [id number] IMPRESSION: 1. No acute intracranial hemorrhage or edema. 2. Mild cerebral and cerebellar atrophy with small vessel changes. 3. No skull fracture.
--- NOTE | 2025-01-28 18:30 | P.PN_ITS ---
Subjective 2 Subjective: Patient was seen this morning, alert oriented x 3, following all commands, does develop episodes with A-fib with RVR upon exertion heart rates as high as 130s she was on 30 mg of Cardizem every 6 hours, I increased it to 60 mg plan was to watch her heart rates throughout the morning into the afternoon - Patient had a fall early this afternoo n, no reported head trauma but did fall on the right side - CT head ordered no acute findings, acc ording to nursing staff she is alert oriented x 3, following commands, headache, blurry vision - X-ray of the bilateral hips ordered no acute fracture - Patient does not complain of any other pain complaints - At about 6 PM, patient went to A-fib w ith RVR heart rates into the 150s - Will stop Cardizem p.o. - Switch to amiodarone bolus and amiodar one drip to watch for 24 hours - I de-escalated her antibiotic therapy from IV to p.o. Vitals/I&O/Wt Last Vital Signs Temp 98.0 F 01/28/25 16:00 Pulse 83 01/28/25 16:00 Resp 15 01/28/25 16:00 BP 134/70 01/28/25 16:00 Pulse Ox 95 01/28/25 16:00 O2 Del Method Room Air 01/28/25 07:19 O2 Flow Rate 6 01/27/25 12:55 01/28/25 01/28/25 01/28/25 06:59 14:59 22:59 Intake Total 250 / 2486 970 / 970 Balance 250 / 2481 970 / 970 Weight last 48 hrs Weight 82.871 kg Weight 83.007 kg Weight 83.325 kg Physical Exam 2 Const: COMMON NORMALS: no acute distress and patient oriented x3 Resp: COMMON NORMALS: normal respiratory effort, No retractions, No use of accessory muscles and clear to auscultation bilaterally AUSCULTATION: clear to auscultation bilaterally Cardio: COMMON NORMALS: regular rhythm, S1 normal heart sound present and S2 normal heart sound present RATE: tachycardic RHYTHM: regular rhythm H EART SOUNDS: S1 normal heart sound present and S2 normal heart sound present GI: COMMON NORMALS: Normal to inspection, nondistended, normoactive bowel sounds present and non-tender Extremity: COMMON NORMALS: no pedal edema Neuro: COMMON NORMALS: patient oriented x3, CN's II-XII intact bilaterally and moves all extremities Psych: COMMON NORMALS: mental status grossly normal Data 01/28/25 03:18 01/28/25 03:18 Micro: Microbiology 01/26/25 15:02 Blood Culture - Preliminary Blood NEGATIVE TO DATE 01/26/25 14:19 Blood Culture - Preliminary Blood NEGATIVE TO DATE A&P Assessment and plan 1. Diabetic peripheral neuropathy associated with type 2 diabetes mellitus: 2. Cellulitis of left foot: Resolved 3. Osteomyelitis of great toe of left foot: 4. Atrial fibrillation with rapid ventricular response: 5. Diabetic foot infection: Plan: Diabetic foot infection, left foot -History of left great toe osteomyelitis, -History of hardware infection, status post removal -Wound cultures growing Pseudomonas Plan - Status post surgical intervention - Follow blood cultures - De-escalate antibiotic therapy Atrial fibrillation with rapid ventricular response - Cardizem drip, wean off to p.o. Cardizem, continue to have A-fib with RVR switch to amiodarone drip amiodarone bolus -Therapeutic Lovenox Low TSH, concerns for hyperthyroidism - Recheck TSH, T3, T4, thyroid ultrasound Fall, -No reported head trauma, no loss of consciousness, no bleeding - X-ray of bilateral hips within normal limits - CT head within normal limits Type 2 diabetes mellitus, low-dose sliding scale Full code Lovenox for DVT prophylaxis PDMP PDMP Reviewed: Last Reviewed 01/26/25 16:04 by Alexander Ramos MD Attestations 2 Medical Necessity Statement*: Patient requires hospitalization for diabetic foot infection, A-fib with RVR, fall Diagnoses Diabetic peripheral neuropathy associated with type 2 diabetes mellitus E11.42 Cellulitis of left foot L03.116 Osteomyelitis of great toe of left foot M86.9 Atrial fibrillation with rapid ventricular response I48.91 Diabetic foot infection E11.628; L08.9
--- NOTE | 2025-01-28 19:04 | XRR_ITS ---
PROCEDURE INFORMATION: Exam: XR Left Foot Exam date and time: 01/28/2025 7:45 PM Age: 69 years old Clinical indication: Injury or trauma; Other: Post surgery; Blunt trauma; Foot; Left; Prior surgery; Surgery date: Post-operative (0-2 days); Surgery type: Toe amputation; Additional info: Injury left toe post amputation TECHNIQUE: Imaging protocol: Radiologic exam of the left foot. Views: 1 or 2 views. COMPARISON: CR XR foot LT min 3V* [id number] 01/26/2025 11:23 AM FINDINGS: Bones/joints: The patient is status post amputation of the 1st digit. Surgical screw involves the base of the 5th metatarsal. Screw involves the mid aspect of the 1st metatarsal. No acute fracture or dislocation. Soft tissues: Diffuse soft tissue swelling present. A small amount of subcutaneous emphysema involves the forefoot. XR/XR foot LT 2V [id number] IMPRESSION: Postoperative changes from recent 1st digit amputation.
[2025-01-28] MEDS: amiodarone 150 MG/100 ML PREMIX 400 MG IV (19:26)
[2025-01-29] VITALS (10 sets, daily range): BP systolic 147–166; BP diastolic 87–126; PULSE 94–107; RESP 13–22; TEMP 36.4–36.6; O2SAT 94–95
[2025-01-29] MEDS: morphine 4 mg/mL SDV 1 mL 2 MG IVP ×2 (02:33→08:00)
[2025-01-29 04:11] LABS: Hematocrit 36.4 % (36-47); Hemoglobin 11.70 g/dL (11.27-16.99); Mean Corpuscular HGB Conc 32.1 g/dL (30-55); Mean Corpuscular Hemoglobin 28.7 pg (27-33); Mean Corpuscular Volume 89.4 fl (85-98); Nucleated Red Blood Cells % 0 %; Platelet Count 280 10^3/cmm (157-399); Red Blood Count 4.07 10^6/uL (3.85-5.65); White Blood Count 13.64 10^3/uL (3.29-11.43)
[2025-01-29 04:35] LABS: Alanine Aminotransferase 14 U/L (0-33); Albumin Level 3.7 g/dL (3.5-5.2); Alkaline Phosphatase 90 U/L (35-105); Anion Gap 16.6 (5-19); Aspartate Amino Transferase 10 U/L (0-32); Blood Urea Nitrogen 7 mg/dL (8-23); Calcium 9.0 mg/dL (8.5-10.5); Carbon Dioxide 26 mmol/L (22-29); Chloride 99 mmol/L (98-107); Creatinine Clr Calc Pharmacy 70.9955; Globulin 3.1 g/dL (1.3-4.6); Glucose 191 mg/dL (65-115); Magnesium 1.9 mg/dL (1.7-2.3); Osmolality Calculated 287 mOsm/kg (285-295); Potassium 4.6 mmol/L (3.5-5.1); Sodium 137 mmol/L (136-145); Total Protein 6.8 g/dL (6.6-8.7)
[2025-01-29] MEDS: pantoprazole 40 mg SDV IVP ×2 (05:26→16:59)
[2025-01-29] MEDS: ATORVASTATIN 10 MG TABLET 20 MG PO (08:01)
--- NOTE | 2025-01-29 09:08 | XRR_ITS ---
PROCEDURE INFORMATION: Exam: XR Right Tibia and Fibula Exam date and time: 01/29/2025 5:13 PM Age: 69 years old Clinical indication: Pain; Lower leg; Right; Prior surgery; Surgery date: 6+ months; Surgery type: Knee replacement; Additional info: Fall, best images acquired due to patient condition TECHNIQUE: Imaging protocol: Radiologic exam of the right tibia and fibula. Views: 2 views. COMPARISON: CR XR tibia fibula RT 2V [id number] 07/08/2021 6:39 PM FINDINGS: Bones/joints: Total knee arthroplasty, better assessed on accompanying knee radiographs. No acute fracture. No dislocation. Soft tissues: Normal. XR/XR tibia fibula RT 2V [id number] IMPRESSION: No acute osseous findings.
--- NOTE | 2025-01-29 09:08 | XRR_ITS ---
PROCEDURE INFORMATION: Exam: XR Right Foot Exam date and time: 01/29/2025 5:13 PM Age: 69 years old Clinical indication: Pain; Foot; Right; Prior surgery; Surgery date: 3-7 days post-operative; Surgery type: Amputation; Best images acquired due to patient condition; Additional info: Pain, fall TECHNIQUE: Imaging protocol: Radiologic exam of the right foot. Views: 1 or 2 views. COMPARISON: CR XR foot RT min 3V* [id number] 09/25/2024 1:44 PM FINDINGS: Bones/joints: Redemonstrated arthrodesis of the 1st interphalangeal joint and osteotomy of the 1st metatarsal. Hardware remains intact. Similar areas of osseous erosion surrounding the 1st metatarsal. Redemonstrated artificial joint along the 3rd proximal interphalangeal joint. No definite acute fracture within the limitations of positioning on this examination. No dislocation. Soft tissues: Normal. XR/XR foot RT 2V [id number] IMPRESSION: No definite acute osseous findings within limitations of the examination.
--- NOTE | 2025-01-29 09:08 | CT_ITS ---
WS: [id number] CT RIGHT HIP, NONCONTRAST HISTORY: fall, pain Technique: All CT scans at [facility] use at least one of these dose optimization techniques: automated exposure control; mA and/or kV adjustment per patient size (includes targeted exams where dose is matched to clinical indication); or iterative reconstruction. DLP: 497.43 mGy.cm COMPARISON: Radiograph 01/28/2025 Mild degenerative joint space narrowing involving the RIGHT hip. Enthesopathy at the greater trochanter, likely within the gluteus medius tendon. No fracture or displacement is identified. RIGHT superior and inferior pubic rami are intact. There is a soft tissue hematoma centered just posterior to the hip measuring at least 10.2 x 6.8 cm. There is additional soft tissue infiltration in the subcutaneous fat. The actual size of the hematoma is difficult to determine due to its extensive nature infiltrating in the muscles. There is a well-circumscribed avulsion fracture near the RIGHT ischial tuberosity which was present on 11/22/2022. CT/CT hip RT wo con* [id number] IMPRESSION: 1. No acute RIGHT hip fracture is identified. If the pain is out of proportion to the image findings MRI of the RIGHT hip, noncontrast would provide addition al information concerning subtle marrow edema/injury. 2. Large soft tissue hematoma centered posterior to the RIGHT hip measures at least 10.2 x 6.8 cm.
--- NOTE | 2025-01-29 09:08 | XRR_ITS ---
PROCEDURE INFORMATION: Exam: XR Right Knee Exam date and time: 01/29/2025 5:13 PM Age: 69 years old Clinical indication: Pain; Right; Prior surgery; Surgery date: 6+ months; Surgery type: Knee replacement; Additional info: Fall/pain, best images acquired due to patient condition, patients accompanying tib/fib images give a better look at patients inferior hardware TECHNIQUE: Imaging protocol: Radiologic exam of the right knee. Views: 1 or 2 views. COMPARISON: CR XR knees AP WB w RT lmt ORTH 02/18/2024 12:50 PM FINDINGS: Bones/joints: Status post total knee arthroplasty. Hardware appears intact without complication. No periprosthetic fracture. Alignment is anatomic. Soft tissues: Normal. XR/XR knee RT 1-2V [id number] IMPRESSION: No acute osseous findings.
[2025-01-29] MEDS: oxyCODONE 5 mg IR Tab/Cap PO ×2 (11:05→16:57)
--- NOTE | 2025-01-29 12:40 | P.PN_ITS ---
Subjective 2 Subjective: Patient was seen this morning - She continues to have right sided hip pain - She tells me that she was attempting t o find an item in her room, when she fell on her right side, following on her right hip, fall was unwitnessed, but denies any head trauma, no loss of consciousness, she fell on her right hip and a little bit on her butt - I discussed her CT yesterday no acute bleed, x-ray no acute fracture - However she continues to have right-si ded hip pain, right hip pain with range of motion, no back pain reported, no sacral pain, no neck pain, no headache, no blurry vision, she does report tenderness along her right hip, minimal tenderness of her right knee, minimal pain with range of motion of her right knee, - We discussed doing a CT of her right h ip, and x-ray of her knee and x-ray of her right foot, pain control, - Discussed PT OT today, pain control, p atient voiced understanding, all questions answered Vitals/I&O/Wt Last Vital Signs Temp 97.6 F 01/29/25 12:00 Pulse 102 H 01/29/25 12:00 Resp 13 01/29/25 12:00 BP 158/98 01/29/25 12:00 Pulse Ox 95 01/29/25 12:00 O2 Del Method Room Air 01/28/25 07:19 O2 Flow Rate 6 01/27/25 12:55 01/28/25 01/29/25 01/29/25 22:59 06:59 14:59 Intake Total 510 / 1480 200 / 1680 458.353 / 458.353 Output Total 1000 / 1000 Balance 505 / 1475 200 / 1675 -541.647 / -541.647 Weight last 48 hrs Weight 82.185 kg Weight 82.871 kg Physical Exam 2 Const: COMMON NORMALS: no acute distress and patient oriented x3 Eye: COMMON NORMALS: Equal, round and reactive pupils present and EOMs intact bilaterally PUPIL: Yes Equal, round and reactive pupils present Resp: COMMON NORMALS: normal respiratory effort, No retractions, No use of accessory muscles and clear to auscultation bilaterally AUSCULTATION: clear to auscultation bilaterally Cardio: COMMON NORMALS: regular rate, regular rhythm, S1 normal heart sound present and S2 normal heart sound present RATE: regular rate RHYTHM: r egular rhythm HEART SOUNDS: S1 normal heart sound present and S2 normal heart sound present GI: COMMON NORMALS: Normal to inspection, nondistended, normoactive bowel sounds present and non-tender Extremity: COMMON NORMALS: no pedal edema NARRATIVE EXTREMITY EXAM: On examination right hip no significant bruising On examination right sacrum no significant bruising Right hip, pain with range of motion, internal/external rotation, hip extension flexion, no clicking, no popping Examination of the right femur has some tenderness tracking along the right femur at about 2 cm from right femoral head, no pain elicited down the rest of the femur No overlying skin changes Tracking down right femur Right knee, she has good range of motion, no clicking, popping, ACL sign negative, PCL sign negative, x-ray ordered Tracking down right lower extremity no point tenderness Right ankle no point tenderness, no pain with range of motion right foot no pain inversion or eversion, or pain on plapation of digits, midfoot, hindfoot Neuro: COMMON NORMALS: patient oriented x3, CN's II-XII intact bilaterally and moves all extremities Psych: COMMON NORMALS: mental status grossly normal Data 01/29/25 03:39 01/29/25 03:39 A&P Assessment and plan 1. Diabetic peripheral neuropathy associated with type 2 diabetes mellitus: 2. Cellulitis of left foot: Resolved 3. Osteomyelitis of great toe of left foot: 4. Atrial fibrillation with rapid ventricular response: 5. Diabetic foot infection: 6. Fall: Plan: Diabetic foot infection, left foot -History of left great toe osteomyelitis, -History of hardware infection, status post removal -Wound cultures growing Pseudomonas Plan - Status post surgical intervention by - Follow blood cultures - De-escalate antibiotic therapy to po ciprofloxacin and doxycycline Atrial fibrillation with rapid ventricular response - transition to po amiodarone -Therapeutic Lovenox Low TSH, concerns for hyperthyroidism - Recheck TSH 0.02, T3 2.5, T4 1.89 / thyroid 23394 IMPRESSION: Normal thyroid ultrasound. Fall, -No reported head trauma, no loss of consciousness, no bleeding -has right hip pain - X-ray of bilateral hips within normal limits - CT head within normal limits -will order ct hip, xr knee, xr foot Type 2 diabetes mellitus, low-dose sliding scale Full code Lovenox for DVT prophylaxis PDMP PDMP Reviewed: Last Reviewed 01/26/25 16:04 by Alexander Ramos MD Attestations 2 Medical Necessity Statement*: Patient requires hospitalization for fall, atrial fibrillation Diagnoses Diabetic peripheral neuropathy associated with type 2 diabetes mellitus E11.42 Cellulitis of left foot L03.116 Osteomyelitis of great toe of left foot M86.9 Atrial fibrillation with rapid ventricular response I48.91 Diabetic foot infection E11.628; L08.9 Fall W19.XXXA
[2025-01-29 12:57] LABS: Hematocrit 32.1 % (36-47); Hemoglobin 10.20 g/dL (11.27-16.99)
[2025-01-29 17:57] LABS: Hematocrit 27.0 % (36-47); Hemoglobin 9.00 g/dL (11.27-16.99)
--- NOTE | 2025-01-29 21:06 | PC.NURSE ---
Patient heart rate increased to 130-150s. Contacted Dr. Corcoran, given orders for a one time Bolus of Amiodarone IV and Metoprolol 25mg PO ONCE.
[2025-01-29] MEDS: amiodarone 150 MG/100 ML PREMIX 400 MG IV (21:11)
[2025-01-29] MEDS: metoprolol succinate ER (24 HR) 25 mg Tablet PO (21:11)
[2025-01-29] MEDS: FUROsemide 10 mg/mL SDV 2mL 20 MG IVP (21:44)
[2025-01-30] VITALS (49 sets, daily range): BP systolic 93–158; BP diastolic 47–109; PULSE 83–132; RESP 14–26; TEMP 36.4–36.8; O2SAT 90–99
[2025-01-30 01:31] LABS: Hematocrit 24.0 % (36-47); Hemoglobin 8.00 g/dL (11.27-16.99)
[2025-01-30] MEDS: metoprolol tartrate 1 mg/1 mL SDV 5 mL 5 MG IVP (02:41)
[2025-01-30] MEDS: morphine 4 mg/mL SDV 1 mL 2 MG IVP ×2 (03:12→09:54)
[2025-01-30 04:30] LABS: Hematocrit 23.3 % (36-47); Hemoglobin 7.80 g/dL (11.27-16.99); Mean Corpuscular HGB Conc 33.5 g/dL (30-55); Mean Corpuscular Hemoglobin 28.9 pg (27-33); Mean Corpuscular Volume 86.3 fl (85-98); Nucleated Red Blood Cells % 0 %; Platelet Count 318 10^3/cmm (157-399); Red Blood Count 2.70 10^6/uL (3.85-5.65); White Blood Count 20.93 10^3/uL (3.29-11.43)
[2025-01-30 04:49] LABS: Alanine Aminotransferase 11 U/L (0-33); Albumin Level 3.4 g/dL (3.5-5.2); Alkaline Phosphatase 83 U/L (35-105); Anion Gap 16.9 (5-19); Aspartate Amino Transferase 10 U/L (0-32); Blood Urea Nitrogen 10 mg/dL (8-23); Calcium 8.6 mg/dL (8.5-10.5); Carbon Dioxide 24 mmol/L (22-29); Chloride 90 mmol/L (98-107); Creatinine Clr Calc Pharmacy 72.3450; Globulin 2.7 g/dL (1.3-4.6); Glucose 232 mg/dL (65-115); Osmolality Calculated 270 mOsm/kg (285-295); Potassium 3.9 mmol/L (3.5-5.1); Sodium 127 mmol/L (136-145); Total Protein 6.1 g/dL (6.6-8.7)
[2025-01-30] MEDS: pantoprazole 40 mg SDV IVP ×2 (05:05→17:32)
--- NOTE | 2025-01-30 07:55 | XR_ITS ---
WS: [id number] Portable AP upright chest, 01/30/2025 Clinical Data: sob Comparison: Portable chest, 04/08/2022 Findings: No nodules, masses or effusions are seen. The heart is normal. The pulmonary vascularity is not increased. No pneumonia or pneumothorax is seen. The aortic arch shows calcification. There is a right shoulder arthroplasty and an anterior cervical disc fusion. Monitor leads are on the chest wall. XR/XR chest 1V portable [id number] Impression: Atherosclerosis.
[2025-01-30 08:13] LABS: Hematocrit 21.5 % (36-47); Hemoglobin 7.00 g/dL (11.27-16.99)
--- NOTE | 2025-01-30 08:23 | CT_ITS ---
WS: [id number] CT ANGIOGRAM CEREBRAL AND CAROTID ARTERIES HISTORY: cva TECHNIQUE: CT angiogram is performed of the carotid and cerebral arteries. During arterial injection imaging is obtained from the skull vertex to the aortic arch in 1.25 mm imaging. Coronal and sagittal reformats are submitted. Additional multi planar reformats of the carotid and cerebral arteries are submitted, MIP imaging also reviewed. NASCET criteria utilized. All CT scans at [facility] use at least one of these dose optimization techniques: automated exposure control; mA and/or kV adjustment per patient size (includes targeted exams where dose is matched to clinical indication); or iterative reconstruction. CONTRAST: Omnipaque 350; 100 mL IV. DLP: 531.63 mGy.cm COMPARISON: 03/04/2020 Carotid Angiogram: Right carotid: Common carotid artery: Normal arises from the innominate artery. Small amount of calcified plaque at the cervical bifurcation. No stenosis. Internal carotid artery: Small amount of plaque at the cervical bifurcation. No stenosis. External carotid artery: Patent. Left carotid: Common carotid artery: Arises normally from the aorta. No significant plaque or stenosis. Internal carotid artery: Small amount of plaque at the bifurcation. No stenosis. External carotid artery: Patent. Right vertebral artery: Small caliber but patent RIGHT vertebral artery. Left vertebral artery: Dominant LEFT vertebral artery arises from the subclavian artery. No stenosis. Subclavian arteries: Partially obscured by artifact from LEFT shoulder prosthesis. No abnormality identified but limited. Upper thorax: Lungs are clear. Atherosclerosis aorta. Thyroid gland: Small caliber. Osseous structures: Prior anterior cervical fusion C5-C7. CEREBRAL ANGIOGRAM: Intracranial vertebral arteries: Vertebral arteries are both patent. LEFT vertebral artery is dominant. Basilar artery: No significant stenosis or occlusion. No aneurysm. Intracranial Internal carotid arteries: Plaque through the carotid cavernous sinuses. No high-grade stenosis or occlusion. Less than 50% stenosis. Middle cerebral arteries: Normal. Anterior cerebral arteries and ACOM: Normal. Posterior cerebral arteries and PCOM's: Normal. Small arachnoid granulations in the RIGHT transverse sinus. Mastoid air cells: Normal. Paranasal sinuses: Normal. Calvarium: Normal. CT/CT angio headneck* [id number] IMPRESSION: 1. No significant cervical carotid artery stenosis. Mild atherosclerotic plaqu e at the bifurcations. 2. Atherosclerotic plaque in the intracranial carotid arteries through the cav ernous sinuses. Less than 50% stenosis. 3. No flow-limiting stenosis or thrombus in the [place]. 4. Dominant LEFT vertebral artery. Both vertebral arteries are patent.
--- NOTE | 2025-01-30 08:23 | CT_ITS ---
WS: [id number] CT HEAD NONCONTRAST HISTORY: cva TECHNIQUE: Contiguous axial imaging performed through the brain. Bone and soft tissue windows. Sagittal and coronal reformats reviewed. All CT scans at [facility] use at least one of these dose optimization techniques: automated exposure control; mA and/or kV adjustment per patient size (includes targeted exams where dose is matched to clinical indication); or iterative reconstruction. DLP: 1152.38 mGy COMPARISON: 01/28/2025 No acute intracranial hemorrhage, midline shift or mass effect. Mild atrophy and small vessel disease. Perivascular space inferior LEFT basal ganglia. Ventricles: Normal size with no hydrocephalus. No inferior displacement the cerebellar tonsils. Paranasal sinuses: As visualized are clear. Mastoid air cells: Well pneumatized. Calvarium and scalp: Hyperostosis frontalis interna. CT/CT head wo con* [id number] IMPRESSION: 1. No acute intracranial hemorrhage or edema. 2. No acute area of sulcal effacement. 3. Mild atrophy and small vessel disease. Notified Alexander Ramos MD at 01/30/2025 8:32 AM.
--- NOTE | 2025-01-30 08:23 | PC.NURSE ---
Provider is contacted that Kaylee Ch, her heart rate has been in the 120-140 since shift change. And she seems off today. She is having a hard time finding her words. She was able to answer questions but took her more time. A stroke alert was called and provider came to room and patient was then taken to CT.
[2025-01-30 08:44] LABS: INR 1.13 (0.8-1.2); Prothrombin Time 15.30 SECONDS (12.1-14.9)
[2025-01-30] MEDS: iohexol 350 mg/mL 500 mL Btl (per mL) IV (08:46)
[2025-01-30 09:03] LABS: Alanine Aminotransferase 11 U/L (0-33); Albumin Level 3.0 g/dL (3.5-5.2); Alkaline Phosphatase 78 U/L (35-105); Anion Gap 15.9 (5-19); Aspartate Amino Transferase 13 U/L (0-32); Blood Urea Nitrogen 11 mg/dL (8-23); Calcium 8.2 mg/dL (8.5-10.5); Carbon Dioxide 23 mmol/L (22-29); Chloride 89 mmol/L (98-107); Creatinine Clr Calc Pharmacy 72.3450; Globulin 2.6 g/dL (1.3-4.6); Glucose 237 mg/dL (65-115); NT Pro B Type Natriuretic Pept 416 pg/mL (0-125); Osmolality Calculated 265 mOsm/kg (285-295); Potassium 3.9 mmol/L (3.5-5.1); Sodium 124 mmol/L (136-145); Total Protein 5.6 g/dL (6.6-8.7)
--- NOTE | 2025-01-30 09:14 | PC.SOCIAL ---
IMM Updated Updated pt on IMM. No questions voiced. Provided pt a copy. Initialed, dated, & timed copy in chart.
[2025-01-30] MEDS: ATORVASTATIN 10 MG TABLET 20 MG PO (09:37)
--- NOTE | 2025-01-30 10:16 | PC.SLP ---
Nursing just gave pain medication. Patient asleep in bed. Will attempt later.
--- NOTE | 2025-01-30 10:17 | PC.NURSE ---
Provider ordered OT eval for patient due to her having a hard time getting things to her mouth.
[2025-01-30] MEDS: piperacillin-tazobactam 3.375 GM in sodium chloride 0.9% (plus) 50 ML IV ×2 (11:01→17:32)
--- NOTE | 2025-01-30 11:07 | PC.NURSE ---
Patient is transferred to ICU at 1100.
--- NOTE | 2025-01-30 11:25 | PC.NURSE ---
Pt arrives to ICu from [facility]. Pt lethargic but able to answer questions. IV noted in right AC with Zosyn infusing without difficulty. Dressing and boot noted on pt's left foot. Right hip and lateral thigh firm and hot to t ouch. Pt stated it is very painful.
--- NOTE | 2025-01-30 12:34 | PC.SLP ---
CODING CLERK attempted once again. [place], with nursing reported pt is having difficulty staying awake. May need to wait until tomorrow, depending on alertness.
--- NOTE | 2025-01-30 13:14 | PC.SLP ---
Still sleeping. Hold off for today, unless pt becomes alert enough to evaluate.
--- NOTE | 2025-01-30 13:35 | PC.OT ---
Hold OT evaluation today as pt is not appropriate for therapy; will attempt again at later time.
[2025-01-30] MEDS: oxyCODONE 5 mg IR Tab/Cap PO ×2 (16:20→23:20)
[2025-01-30 16:47] LABS: Lactic Sepsis W/Reflex 1.5 mmol/L (0.5-2.2)
[2025-01-30 16:48] LABS: Sodium 126 mmol/L (136-145)
--- NOTE | 2025-01-30 17:48 | PM.CCNAC ---
Critical Care Event Note The high probability of a clinically significant, sudden or life threatening deterioration of the patient's [] system(s) required my full and direct attention, intervention and personal management. The critical care time is as shown. This time is in addition to time spent performing any reported procedures but includes the following: [x] Data and vital sign review and interpretation [x] Patient assessment, examination and intervention [x] Documentation [x] Medication orders and management Critical Care Time Code activated: Yes Critical Care Time (min): 45 Additional information about critical care time: - I was contacted by nursing staff at about 8:23 AM - Kaylee seemed off, she was having word finding difficulty - Stroke alert was called - Patient was immediately examined - Kaylee is alert oriented x 3, following all commands, I cannot discern any facial droop no slurring words, she has very slight word finding difficulty but can get most answers appropriately, she is able to move bilateral upper and lower extremities, no focal weakness discerned, no visual deficits discerned, and NIH stroke scale 1-2 to commands her blood sugars were checked and she was moved immediately to the CT scan - She was taken to CAT scan Head CT CT/CT head wo con* [id number] IMPRESSION: 1. No acute intracranial hemorrhage or edema. 2. No acute area of sulcal effacement. 3. Mild atrophy and small vessel disease. CTA head and neck CT/CT angio headneck* [id number] IMPRESSION: 1. No significant cervical carotid artery stenosis. Mild atherosclerotic plaque at the bifurcations. 2. Atherosclerotic plaque in the intracranial carotid arteries through the cavernous sinuses. Less than 50% stenosis. 3. No flow-limiting stenosis or thrombus in the [place]. 4. Dominant LEFT vertebral artery. Both vertebral arteries are patent. -Blood sugar 285 - Confounding factor patient's serum sodium was 124 this morning, likely a component of pseudohyponatremia, and diuresis certainly this could be a component of patient's word-finding difficulty, confusion - She was also noted to have a hemoglobin of 7, she yesterday was found to have an soft tissue hematoma of the right hip after a fall, hip CT showing large soft tissue hematoma measuring 10 x 6 x 8 cm, for therapeutic Lovenox was stopped she did have A-fib with RVR on admission and throughout the night requiring amiodarone drip - Could be embolic stroke as she is off anticoagulant therapy, however CT head and neck did not show any large vessel occlusion or any evidence of embolus thus less likely - Unfortunately she was not a tPA candidate given her soft tissue hematoma, hemoglobin down to 7 - She was ordered on a unit of blood - Taken back to the room - I examined her again she is alert oriented x 3, following all commands, no word finding difficulty, no facial droop - She is able to move her right arm, right arm movement is limited by 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 - She does have movement of bilateral lower extremities which is equal - She has equal movement of bilateral extremities including foot inversion, eversion, extension, flexion - However movement at the right hip is limited due to her large soft tissue hematoma - She has good DP PT pulses on the right - But she has significant pain in the right hip tightness in the right hip and right thigh due to her soft tissue hematoma - Which is limiting her range of motion and making examination, neurologic examination difficult but she has good sensation equal bilaterally - She has movement in of her right knee equal bilaterally - Is able to push off with her knee held in flexed position and has good strength - Discussed with patient that her NIH stroke scale is 0 - It is possible that she has had a TIA as she has been off anticoagulant therapy for A-fib with RVR -She was not a tPA candidate as she had acute anemia hemoglobin down to 7, she is requiring blood, she has a large soft tissue hematoma - However it is very difficult to manage her currently as putting her back on therapeutic Lovenox has a risk of hemodynamic compromise, worsening of her bleeding into her right thigh, and morbidity mortality associated - I discussed with her the risk and benefits of all options, shared decision making, she voiced understanding, all questions answered - She agrees to proceed with aspirin 81 mg, will monitor hemoglobin closely transfuse to her 1 unit PRBC, agrees to avoid blood thinners for now - I am going to keep her on bedrest this morning, and this afternoon PT OT and speech therapy can work with her - I am worried about hemodynamic compromise continued bleeding into the right hip, I would avoid aggressive physical therapy today - Will monitor her in ICU closely - Patient agreed this Coding Level of Care Code Acute Code for Jaret Deal
--- NOTE | 2025-01-30 17:59 | P.PN_ITS ---
Vitals/I&O/Wt Last Vital Signs Temp 97.5 F L 01/30/25 17:26 Pulse 84 01/30/25 17:26 Resp 21 H 01/30/25 17:26 BP 135/72 01/30/25 17:26 Pulse Ox 96 01/30/25 17:26 O2 Del Method Room Air 01/30/25 07:34 O2 Flow Rate 6 01/27/25 12:55 01/30/25 01/30/25 01/30/25 06:59 14:59 22:59 Intake Total 120 / 2168.353 250 / 250 400 / 650 Balance 120 / 163.353 250 / 250 400 / 650 Weight last 48 hrs Weight 86.137 kg Weight 82.185 kg Physical Exam 2 Const: COMMON NORMALS: no acute distress and patient oriented x3 O RIENTATION/CONSCIOUSNESS: Yes awake, Yes oriented to person, Yes oriented to place and Yes oriented to time Eye: COMMON NORMALS: Equal, round and reactive pupils present and EOMs intact bilaterally PUPIL: Yes Equal, round and reactive pupils present Resp: COMMON NORMALS: normal respiratory effort, No retractions, No use of accessory muscles and clear to auscultation bilaterally AUSCULTATION: clear to auscultation bilaterally Cardio: COMMON NORMALS: regular rate, regular rhythm, S1 normal heart sound present and S2 normal heart sound present RATE: regular rate RHYTHM: r egular rhythm HEART SOUNDS: S1 normal heart sound present and S2 normal heart sound present GI: COMMON NORMALS: Normal to inspection, nondistended, normoactive bowel sounds present and non-tender : COMMON NORMALS: Yes no CVA tenderness BLADDER/KIDNEY EXAM: Yes no CVA tenderness Back/Pelvis: COMMON NORMALS: no CVA tenderness Extremity: COMMON NORMALS: no pedal edema Neuro: COMMON NORMALS: patient oriented x3, CN's II-XII intact bilaterally, moves all extremities, no focal motor deficits and no sensory deficits noted SENSORIUM/ORIENTATION: Yes oriented to person, Yes oriented to place and Yes oriented to time Psych: COMMON NORMALS: mental status grossly normal Skin: NARRATIVE SKIN EXAM: Right thigh, swelling, tenderness, has DP PT pulses, no overlying skin changes Limited movement of the right hip Can follow all commands Left foot is wrapped Data 01/30/25 07:49 01/30/25 16:25 Micro: Microbiology 01/30/25 08:00 Blood Culture - Preliminary Blood SPECIMEN COLLECTED 01/30/25 07:49 Blood Culture - Preliminary Blood SPECIMEN COLLECTED A&P Assessment and plan 1. Diabetic peripheral neuropathy associated with type 2 diabetes mellitus: 2. Cellulitis of left foot: Resolved 3. Osteomyelitis of great toe of left foot: 4. Atrial fibrillation with rapid ventricular response: 5. Diabetic foot infection: 6. Fall: 7. Acute anemia: 8. Hematoma: 9. Acute CVA (cerebrovascular accident): Plan: Acute CVA vs TIA Head CT CT/CT head wo con* [id number] IMPRESSION: 1. No acute intracranial hemorrhage or edema. 2. No acute area of sulcal effacement. 3. Mild atrophy and small vessel disease. CTA head and neck CT/CT angio headneck* [id number] IMPRESSION: 1. No significant cervical carotid artery stenosis. Mild atherosclerotic plaque at the bifurcations. 2. Atherosclerotic plaque in the intracranial carotid arteries through the cavernous sinuses. Less than 50% stenosis. 3. No flow-limiting stenosis or thrombus in the [place]. 4. Dominant LEFT vertebral artery. Both vertebral arteries are patent. - NIH stroke scale 1-2 - Currently it is show scale 0 - Confounding factors acute anemia, hyponatremia, leukocytosis - Not a tPA candidate given acute anemia, soft tissue hematoma - Spoke with neurology - No evidence of embolic event, or large vessel occlusion -But does have A-fib with RVR Plan -Aspirin - Statin - Monitor hemoglobin closely - Transfuse 1 unit PRBC - Will consider Lovenox based on clinical progress, hemoglobin trend - PT OT, speech therapy eval - Neurochecks - NIH stroke scale Hematoma Mild degenerative joint space narrowing involving the RIGHT hip. Enthesopathy at the greater trochanter, likely within the gluteus medius tendon. No fracture or displacement is identified. RIGHT superior and inferior pubic rami are intact. There is a soft tissue hematoma centered just posterior to the hip measuring at least 10.2 x 6.8 cm. There is additional soft tissue infiltration in the subcutaneous fat. The actual size of the hematoma is difficult to determine due to its extensive nature infiltrating in the muscles. There is a well-circumscribed avulsion fracture near the RIGHT ischial tuberosity which was present on 11/22/2022. Plan -Hold blood thinners - Pain control - Monitor closely - Monitor DP PT pulses - Continue broad-spectrum antibiotic therapy - Monitor for compartment syndrome Acute Anemia Hgb 7 Likely secondary to soft tissue hematoma as above Plan -Transfuse 1 unit PRBC - Monitor hemoglobin thereafter Hyponatremia Serum Sodium 124-127 Component of pseudohyponatremia Component of diuretic therapy Component of poor oral intake Plan - Monitor serum sodium every 6 hours - Monitor mentation Leukocytosis? - Etiology unclear - Urinalysis - CRP, Pro-Varghese - Vancomycin, Zosyn - Follow blood cultures Diabetic foot infection, left foot -History of left great toe osteomyelitis, -History of hardware infection, status post removal -Wound cultures growing Pseudomonas Plan - Status post surgical intervention by - Follow blood cultures - Atrial fibrillation with rapid ventricular response -Currently on amiodarone drip - transition to po amiodarone -Therapeutic Lovenox, currently on hold Low TSH, concerns for hyperthyroidism - Recheck TSH 0.02, T3 2.5, T4 1.89 US/ thyroid [id number] IMPRESSION: Normal thyroid ultrasound. Fall, -No reported head trauma, no loss of consciousness - CT head within normal limits Type 2 diabetes mellitus, low-dose sliding scale Full code Lovenox for DVT prophylaxis currently on hold, SCDs PDMP PDMP Reviewed: Last Reviewed 01/29/25 12:43 by Alexander Ramos MD Attestations 2 Medical Necessity Statement*: Patient requires hospitalization for acute anemia, leukocytosis, hyponatremia, acute CVA versus TIA, fall, soft tissue hematoma Diagnoses Diabetic peripheral neuropathy associated with type 2 diabetes mellitus E11.42 Cellulitis of left foot L03.116 Osteomyelitis of great toe of left foot M86.9 Atrial fibrillation with rapid ventricular response I48.91 Diabetic foot infection E11.628; L08.9 Fall W19.XXXA Acute anemia D64.9 Hematoma T14.8XXA Acute CVA (cerebrovascular accident) I63.9
[2025-01-30 18:11] LABS: Hematocrit 24.8 % (36-47); Hemoglobin 8.20 g/dL (11.27-16.99); Mean Corpuscular HGB Conc 33.1 g/dL (30-55); Mean Corpuscular Hemoglobin 28.9 pg (27-33); Mean Corpuscular Volume 87.3 fl (85-98); Nucleated Red Blood Cells % 0 %; Platelet Count 239 10^3/cmm (157-399); Red Blood Count 2.84 10^6/uL (3.85-5.65); White Blood Count 17.49 10^3/uL (3.29-11.43)
--- NOTE | 2025-01-30 18:30 | PC.NURSE ---
Dr Ramos notified of pt's inability to urinate a couple times on bedpan since her arrival to ICU. Orders to scan bladder and insert abbasi received. Bladder scan showed 2150. Immediate Abbasi placement completed utilizing sterile technique and hand hygiene. Pt tolerated very well. She sated that felt better. Urine collected and sent to lab. Abbasi clamped mid way to prevent bladder spasms.
[2025-01-30 18:48] LABS: Procalcitonin 0.18 ng/mL (0-0.5)
[2025-01-30 19:18] LABS: Glucose Urine UA 1+ (Normal); Nitrate Urine Negative (Negative)
[2025-01-30 19:21] LABS: Add Urine Microscopic? YES
[2025-01-30 19:28] LABS: Specific Gravity, Urine 1.043 (1.005-1.030)
--- NOTE | 2025-01-30 20:00 | PC.NURSE ---
Shift summary: Pt has rested in bed since her arrival to ICU. VSS. Afebrile.. Sinus rhythm noted on monitor. 1 unit of PRBCs transfused for hgb of 7. She can answer orientation questions of name, place, month, year and President. Immediately after answering those questions this afternoon she asked Where are you now She asked this nurse what kind of bread was she making. She stated she needed to pee then it morphed into wanting a pig. She requested to speak to her on the phone, her cell phone was handed to her. She spoke to a male. While her brother was visiting this afternoon he stated that was him she spoke with and pt's is . She dozes off in the middle of her meal even after repeated awakenings. She wanted to get of be to use bathroom while she was so lethargic and blood transfusing, bedpan offered, she was unable to urinate while on bedpan. She did this one other time this afternoon. While this nurse waiting on bladder scanner, spokw with Dr Ramos and received orders.urinary output of 2100ml. No Bm noted.
--- NOTE | 2025-01-30 22:46 | PC.NURSE ---
Addendum entered by Machelle Mckeon RN 01/31/25 06:34: Unable to give PO Amio, pt is lethargic and unable to safely take medications at this time. Dr. Skaggs notified via VOLT. Addendum entered by Machelle Mckeon RN 01/31/25 06:10: Dr. Skaggs notifed of Critical CK and increase in HR- appears to be A. fib on the monitor. New order to give PO Amio scheduled for 9am NOW and EKG. Original Note: Physician Notification: Notified Dr. Skaggs @[id number] of increase in NIH scale from 5 to 9.
[2025-01-30 22:59] LABS: Hematocrit 24.7 % (36-47); Hemoglobin 8.20 g/dL (11.27-16.99); Mean Corpuscular HGB Conc 33.2 g/dL (30-55); Mean Corpuscular Hemoglobin 28.8 pg (27-33); Mean Corpuscular Volume 86.7 fl (85-98); Nucleated Red Blood Cells % 0 %; Platelet Count 262 10^3/cmm (157-399); Red Blood Count 2.85 10^6/uL (3.85-5.65); White Blood Count 18.73 10^3/uL (3.29-11.43)
[2025-01-30 23:17] LABS: Sodium 128 mmol/L (136-145)
[2025-01-31] VITALS (39 sets, daily range): BP systolic 98–155; BP diastolic 53–102; PULSE 88–129; RESP 12–22; TEMP 36.7–37.4; O2SAT 89–99
[2025-01-31] MEDS: morphine 4 mg/mL SDV 1 mL 2 MG IVP (00:06)
[2025-01-31] MEDS: piperacillin-tazobactam 3.375 GM in sodium chloride 0.9% (plus) 50 ML IV ×3 (00:48→17:23)
[2025-01-31 05:29] LABS: Hematocrit 23.3 % (36-47); Hemoglobin 7.50 g/dL (11.27-16.99); Mean Corpuscular HGB Conc 32.2 g/dL (30-55); Mean Corpuscular Hemoglobin 28.1 pg (27-33); Mean Corpuscular Volume 87.3 fl (85-98); Nucleated Red Blood Cells % 0 %; Platelet Count 238 10^3/cmm (157-399); Red Blood Count 2.67 10^6/uL (3.85-5.65); White Blood Count 15.14 10^3/uL (3.29-11.43)
[2025-01-31] MEDS: oxyCODONE 5 mg IR Tab/Cap PO (05:30)
[2025-01-31] MEDS: pantoprazole 40 mg SDV IVP ×2 (05:34→17:24)
[2025-01-31 05:44] LABS: Lactate (Lactic Acid level) 2.1 mmol/L (0.5-2.2)
[2025-01-31 05:47] LABS: Alanine Aminotransferase 32 U/L (0-33); Albumin Level 3.3 g/dL (3.5-5.2); Alkaline Phosphatase 85 U/L (35-105); Anion Gap 16.2 (5-19); Aspartate Amino Transferase 75 U/L (0-32); Blood Urea Nitrogen 14 mg/dL (8-23); Calcium 8.7 mg/dL (8.5-10.5); Carbon Dioxide 27 mmol/L (22-29); Chloride 95 mmol/L (98-107); Creatinine Clr Calc Pharmacy 72.2140; Globulin 2.2 g/dL (1.3-4.6); Glucose 183 mg/dL (65-115); Osmolality Calculated 283 mOsm/kg (285-295); Potassium 4.2 mmol/L (3.5-5.1); Sodium 134 mmol/L (136-145); Total Protein 5.5 g/dL (6.6-8.7)
[2025-01-31 05:51] LABS: NT Pro B Type Natriuretic Pept 220 pg/mL (0-125); Sodium 132 mmol/L (136-145)
[2025-01-31 05:53] LABS: Procalcitonin 0.21 ng/mL (0-0.5)
[2025-01-31 06:07] LABS: Magnesium 2.0 mg/dL (1.7-2.3)
--- NOTE | 2025-01-31 06:12 | ECG_ITS ---
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 Measurements Intervals [place] Rate: 119 P: 0 CA: 0 QRS: 68 QRSD: 94 T: -21 QT: 326 QTc: 459 Interpretive Statements ATRIAL FLUTTER WITH RAPID VENTRICULAR RESPONSE NONSPECIFIC ST & T-WAVE ABNORMALITY Compared to ECG 01/27/2025 07:29:49 T-wave abnormality now present Sinus rhythm no longer present Electronically Signed On 01-31-2025 08:42:25 CDT by Ranjit Nicolas M.D. [email or web address] [id number]
[2025-01-31] MEDS: ATORVASTATIN 10 MG TABLET 20 MG PO (08:43)
--- NOTE | 2025-01-31 10:15 | CTR_ITS ---
PROCEDURE INFORMATION: Exam: CT Chest Without Contrast; Diagnostic Exam date and time: 01/31/2025 10:45 AM Age: 69 years old Clinical indication: Other: AMS TECHNIQUE: Imaging protocol: Diagnostic computed tomography of the chest without contrast. Radiation optimization: All CT scans at this facility use at least one of these dose optimization techniques: automated exposure control; mA and/or kV adjustment per patient size (includes targeted exams where dose is matched to clinical indication); or iterative reconstruction. COMPARISON: CR XR chest 1V portable [id number] 01/30/2025 8:57 AM RADIATION DOSE METRICS: Total DLP (mGy-cm): 1032.65 FINDINGS: Lungs: Minimal bibasilar atelectasis Pleural spaces: Unremarkable. No pneumothorax. No pleural effusion. Heart: Unremarkable. No cardiomegaly. No pericardial effusion. Coronary arteries: Coronary calcifications are seen. Lymph nodes: Unremarkable. No enlarged lymph nodes. Vasculature: Mild calcified atherosclerotic changes are seen in the thoracic aorta. Bones/joints: prior right shoulder replacement. Prior surgical changes of the lower cervical spine. Age-indeterminate T12 compression deformity. Soft tissues: Unremarkable. PROCEDURE INFORMATION: Exam: CT Abdomen And Pelvis Without Contrast Exam date and time: 01/31/2025 10:45 AM Age: 69 years old Clinical indication: Other: AMS TECHNIQUE: Imaging protocol: Computed tomography of the abdomen and pelvis without contrast. Radiation optimization: All CT scans at this facility use at least one of these dose optimization techniques: automated exposure control; mA and/or kV adjustment per patient size (includes targeted exams where dose is matched to clinical indication); or iterative reconstruction. COMPARISON: CR XR hip BI 2V wo/w pel [id number] 01/28/2025 1:32 PM RADIATION DOSE METRICS: Total DLP (mGy-cm): 1032.65 FINDINGS: Liver: Normal. No mass. Gallbladder and biliary ducts: Post cholecystectomy changes are seen. Pancreas: Normal. No ductal dilation. Spleen: Normal. No splenomegaly. Adrenal glands: Normal. No mass. Kidneys and ureters: Normal. No hydronephrosis. Stomach and bowel: Diffuse colonic stool material. No small bowel loop dilatation. Appendix: Appendix is normal. Intraperitoneal space: Unremarkable. No free air. No significant fluid collection. Vasculature: Mild calcified atherosclerotic changes are seen throughout the abdominal aorta. Lymph nodes: Unremarkable. No enlarged lymph nodes. Urinary bladder: Wyatt catheter in the bladder. Reproductive: Post hysterectomy changes are seen. Bones/joints: posterior lumbar fusion from L3-L5 levels. Soft tissues: Large right gluteal hyperdense lesion measuring 4.1 x 7.9 x 10.7 cm. It has medial component extending to the right piriformis muscle. CT/[place] [id number] IMPRESSION: 1. Age-indeterminate T12 compression deformity. Clinical correlation is advised. If indicated, MRI can be obtained to exclude acute compression fracture. 2. Coronary calcifications. 3. Mild calcified atherosclerotic changes are seen in the thoracic aorta. IMPRESSION: 1. Large right gluteal hyperdense lesion measuring 4.1 x 7.9 x 10.7 cm. It has medial component extending to the right piriformis muscle. Finding could represent a intramuscular hematoma. Clinical correlation is advised. 2. Mild calcified atherosclerotic changes are seen throughout the abdominal aorta. 3. Diffuse colonic stool material. Clinical correlation to exclude constipation is advised.
--- NOTE | 2025-01-31 10:15 | CTR_ITS ---
PROCEDURE INFORMATION: Exam: CT Head Without Contrast Exam date and time: 01/31/2025 10:42 AM Age: 69 years old Clinical indication: Altered mental status/memory loss; Additional info: AMS TECHNIQUE: Imaging protocol: Computed tomography of the head without contrast. Radiation optimization: All CT scans at this facility use at least one of these dose optimization techniques: automated exposure control; mA and/or kV adjustment per patient size (includes targeted exams where dose is matched to clinical indication); or iterative reconstruction. COMPARISON: CT angio headneck* [id number] 01/30/2025 8:27 AM RADIATION DOSE METRICS: Total DLP (mGy-cm): 905.68 FINDINGS: Brain: Age related diffuse parenchymal volume loss. There are bilateral periventricular white matter and centrum semiovale hypodensities, consistent with chronic ischemic small vessel disease. No recent infarct, intracranial bleed or mass effect. Cerebral ventricles: Ex vacuo dilatation of the ventricles. Paranasal sinuses: Visualized sinuses are unremarkable. No fluid levels. Mastoid air cells: Visualized mastoid air cells are well aerated. Orbital cavities: Post bilateral cataract surgery. Bones: Benign hyperostosis frontalis is present. Soft tissues: Unremarkable. CT/CT head wo con* [id number] IMPRESSION: No large territorial infarct or intracranial bleed.
--- NOTE | 2025-01-31 10:17 | PC.NURSE ---
Notified Dr. Chacko patient is more lethargic. Received order for ABG and CT head.
[2025-01-31 10:43] LABS: ABG PCO2 45.5 mmHg (35-45); ABG PH Result 7.39 (7.35-7.45); Alveolar-Arterial Oxygen Gradi 4.4 mmHg (5-10); Arterial Blood Gas Hematocrit 22.8 % (37-47); Blood Gas Allen Test Pos; Blood Gas Operator Identificat GD; Blood Gas Sample Site Radial, right; Blood Gas Sample Type Arterial; Carboxyhemoglobin 1.8 %THgb (0.4-20.1); Glucose Level-ABG 206.0 mg/dL (70-115); HCO3 ABG 27.4 mmol/L (22-26); Ionized Calcium Level - ABG 1.2 mmol/L (1.1-1.4); Methemoglobin 1.2 % (0.4-1.5); Oxygen Saturation ABG 91.9; PO2 ABG 59.8 mmHg (80.0-100.0); PO2 FiO2 Ratio Arterial Blood 284; Potassium Level - ABG 3.6 mmol/L (3.5-5.0); Sodium Level - ABG 132.0 mmol/L (131-143)
--- NOTE | 2025-01-31 12:42 | PC.OT ---
Attempted Occupational Therapy Evaluation today. Patient is in bed and will only open eyes at times and not awake. Will attempt Occupational Therapy evaluation on Sunday.
--- NOTE | 2025-01-31 13:11 | PM.PN ---
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, equal bilateral upper extremity, she has good and equal movement of bilateral lower extremities, her right lower extremity movement is limited by the pain and tightness of her right thigh but no overlying bruising, she has DP PT pulses palpable she is able to extend and flex and rotate at the knee, no word finding difficulty, no slurring of her words Vitals/I&O/Wt Last Vital Signs Temp 98.4 F 01/31/25 11:11 Pulse 90 01/31/25 12:00 Resp 13 01/31/25 12:00 BP 118/54 01/31/25 12:00 Pulse Ox 94 01/31/25 12:00 O2 Del Method Room Air 01/31/25 12:00 O2 Flow Rate 6 01/27/25 12:55 01/30/25 01/31/25 01/31/25 22:59 06:59 14:59 Intake Total 1150 / 1400 290 / 1690 750 / 750 Output Total 2100 / 2100 2000 / 4100 Balance -950 / -700 -1710 / -2410 750 / 750 Weight last 48 hrs Weight 85.82 kg Weight 86.137 kg Physical Exam Const: COMMON NORMALS: no acute distress ORIENTATION/CONSCIOUSNESS: Yes awake, Yes oriented to person and Yes oriented to place; not oriented to time Resp: COMMON NORMALS: normal respiratory effort, No retractions, No use of accessory muscles and clear to auscultation bilaterally AUSCULTATION: clear to auscultation bilaterally Cardio: COMMON NORMALS: regular rate, regular rhythm, S1 normal heart sound present and S2 normal heart sound present RATE: regular rate RHYTHM: regular rhythm HEART SOUNDS: S1 normal heart sound present and S2 normal heart sound present GI: COMMON NORMALS: Normal to inspection, nondistended, normoactive bowel sounds present and non-tender Extremity: COMMON NORMALS: no pedal edema Neuro: COMMON NORMALS: CN's II-XII intact bilaterally, moves all extremities, no focal motor deficits and no sensory deficits noted SENSORIUM/ORIENTATION: Yes oriented to person, Yes oriented to place and No oriented to time Psych: COMMON NORMALS: mental status grossly normal Urinary Catheter Management: Wyatt: Cath Placed During This Visit: yes Reason for Continuing Indwelling Catheter: Accurate Measurement of Urinary Output in Critically Ill Patients Urinary Catheter Date of Insertion: 01/30/25 Urinary Catheter Time of Insertion: 18:14 Data 01/31/25 04:53 01/31/25 04:53 Micro: Microbiology 01/30/25 08:00 Blood Culture - Preliminary Blood NEGATIVE TO DATE 01/30/25 07:49 Blood Culture - Preliminary Blood NEGATIVE TO DATE A&P Assessment and plan 1. Diabetic peripheral neuropathy associated with type 2 diabetes mellitus: 2. Cellulitis of left foot: Resolved 3. Osteomyelitis of great toe of left foot: 4. Atrial fibrillation with rapid ventricular response: 5. Diabetic foot infection: 6. Fall: 7. Acute anemia: 8. Hematoma: 9. Acute CVA (cerebrovascular accident): Plan: Acute CVA vs TIA Head CT CT/CT head wo con* [id number] IMPRESSION: 1. No acute intracranial hemorrhage or edema. 2. No acute area of sulcal effacement. 3. Mild atrophy and small vessel disease. CTA head and neck CT/CT angio headneck* [id number] IMPRESSION: 1. No significant cervical carotid artery stenosis. Mild atherosclerotic plaque at the bifurcations. 2. Atherosclerotic plaque in the intracranial carotid arteries through the cavernous sinuses. Less than 50% stenosis. 3. No flow-limiting stenosis or thrombus in the [place]. 4. Dominant LEFT vertebral artery. Both vertebral arteries are patent. - NIH stroke scale 1-2 - Currently it is show scale 0 - Confounding factors acute anemia, hyponatremia, leukocytosis - Not a tPA candidate given acute anemia, soft tissue hematoma - Spoke with neurology - No evidence of embolic event, or large vessel occlusion -But does have A-fib with RVR Plan -Aspirin - Statin - Monitor hemoglobin closely - Transfuse 1 unit PRBC, will require another unit PRBC - Will consider Lovenox based on clinical progress, hemoglobin trend - PT OT, speech therapy eval - Neurochecks - NIH stroke scale Hematoma Mild degenerative joint space narrowing involving the RIGHT hip. Enthesopathy at the greater trochanter, likely within the gluteus medius tendon. No fracture or displacement is identified. RIGHT superior and inferior pubic rami are intact. There is a soft tissue hematoma centered just posterior to the hip measuring at least 10.2 x 6.8 cm. There is additional soft tissue infiltration in the subcutaneous fat. The actual size of the hematoma is difficult to determine due to its extensive nature infiltrating in the muscles. There is a well-circumscribed avulsion fracture near the RIGHT ischial tuberosity which was present on 11/22/2022. Plan -Hold blood thinners such as Lovenox - Pain control - Monitor closely - Monitor DP PT pulses - Continue broad-spectrum antibiotic therapy - Monitor for compartment syndrome Acute Anemia Hgb 8.5 transfuse another unit PRBC Likely secondary to soft tissue hematoma as above Plan -Transfuse 1 unit PRBC - Monitor hemoglobin thereafter Hyponatremia Serum Sodium 124-127, now 132 Component of pseudohyponatremia Component of diuretic therapy Component of poor oral intake Plan - Monitor serum sodium every 6 hours - Monitor mentation Leukocytosis? - Etiology unclear, could be from hematoma - Urinalysis - CRP 144, Pro-Varghese 0.21 - Vancomycin, Zosyn - Follow blood cultures Rhabdomyolysis, 3692 - Will avoid fluids as high risk of fluid overload - Monitor closely - Is receiving a unit of PRBC Diabetic foot infection, left foot -History of left great toe osteomyelitis, -History of hardware infection, status post removal -Wound cultures growing Pseudomonas Plan - Status post surgical intervention by - Follow blood cultures - Atrial fibrillation with rapid ventricular response -Currently on amiodarone drip - transition to po amiodarone -Therapeutic Lovenox, currently on hold Low TSH, concerns for hyperthyroidism - Recheck TSH 0.02, T3 2.5, T4 1.89 / thyroid 99233 IMPRESSION: Normal thyroid ultrasound. Fall, -No reported head trauma, no loss of consciousness - CT head within normal limits Type 2 diabetes mellitus, low-dose sliding scale Full code Lovenox for DVT prophylaxis currently on hold, SCDs Plan for today transfuse 1 unit PRBC monitor mentation, PT OT, monitor serum sodium, CT chest abdomen pelvis repeat CT head PDMP PDMP Reviewed: Last Reviewed 01/29/25 12:43 by Alexander Ramos MD Attestations Medical Necessity Statement*: Patient requires hospitalization for acute CVA versus TIA, anemia, hematoma, fall, atrial fibrillation, leukocytosis Diagnoses Diabetic peripheral neuropathy associated with type 2 diabetes mellitus E11.42 Cellulitis of left foot L03.116 Osteomyelitis of great toe of left foot M86.9 Atrial fibrillation with rapid ventricular response I48.91 Diabetic foot infection E11.628; L08.9 Fall W19.XXXA Acute anemia D64.9 Hematoma T14.8XXA Acute CVA (cerebrovascular accident) I63.9
[2025-01-31 16:37] LABS: Sodium 133 mmol/L (136-145)
--- NOTE | 2025-01-31 17:52 | PC.SLP ---
Speech therapy attempted to see px this morning, but she was gone in imaging. Will re-check tomorrow unless otherwise advised.
[2025-01-31 18:36] LABS: Hematocrit 22.2 % (36-47); Hemoglobin 7.50 g/dL (11.27-16.99); Mean Corpuscular HGB Conc 33.8 g/dL (30-55); Mean Corpuscular Hemoglobin 29.9 pg (27-33); Mean Corpuscular Volume 88.4 fl (85-98); Nucleated Red Blood Cells % 0 %; Platelet Count 216 10^3/cmm (157-399); Red Blood Count 2.51 10^6/uL (3.85-5.65); White Blood Count 12.48 10^3/uL (3.29-11.43)
--- NOTE | 2025-01-31 18:59 | P.PN_ITS ---
Subjective 2 Subjective: Patient seen bedside is status post left great toe amputation secondary to osteomyelitis date of operation 01/27/2025. Vitals/I&O/Wt Last Vital Signs Temp 98.2 F 01/31/25 18:04 Pulse 93 01/31/25 18:00 Resp 18 01/31/25 18:00 BP 151/66 01/31/25 18:00 Pulse Ox 91 01/31/25 18:00 O2 Del Method Room Air 01/31/25 18:00 O2 Flow Rate 6 01/27/25 12:55 01/31/25 01/31/25 01/31/25 06:59 14:59 22:59 Intake Total 290 / 1690 800 / 800 400 / 1200 Output Total 2000 / 4100 750 / 750 200 / 950 Balance -1710 / -2410 50 / 50 200 / 250 Weight last 48 hrs Weight 189 lb 3.2 oz Weight 189 lb 14.4 oz Physical Exam 2 Narrative: GENERAL: Patient is alert and oriented ?3 and in no acute distress. The following is a focused left lower extremity exam. VASCULAR: Dorsalis pedis and posterior tibial arteries palpable +2. Capillary refill time less than 3 seconds to the distal hallux bilaterally. Calf is supple and nontender proximally and distally. Edema at the left great toe. NEUROLOGICAL: Protective sensation intact to light touch. DERMATOLOGICAL: Surgical dressing is clean dry and intact no strikethrough bleeding and no erythema proximal to surgical dressing. MUSCULOSKELETAL: Status post left great toe amputation. Urinary Catheter Management: Wyatt: Cath Placed During This Visit: yes Reason for Continuing Indwelling Catheter: Accurate Measurement of Urinary Output in Critically Ill Patients Urinary Catheter Date of Insertion: 01/30/25 Urinary Catheter Time of Insertion: 18:14 Data 02/01/25 05:57 02/01/25 05:57 Micro: Microbiology 01/26/25 15:02 Blood Culture - Final Blood NO GROWTH AFTER 5 DAYS 01/26/25 14:19 Blood Culture - Final Blood NO GROWTH AFTER 5 DAYS 01/30/25 08:00 Blood Culture - Preliminary Blood NEGATIVE TO DATE 01/30/25 07:49 Blood Culture - Preliminary Blood NEGATIVE TO DATE A&P Assessment and plan 1. Diabetic peripheral neuropathy associated with type 2 diabetes mellitus: 2. Cellulitis of left foot: Resolved 3. Osteomyelitis of great toe of left foot: Plan: Status post left great toe amputation secondary to osteomyelitis date of operation 01/27/2023. PT to dispense postop shoe left foot. Weightbearing as tolerated left foot. Elevate left foot while resting. Plan on surgical dressing change tomorrow. PDMP PDMP Reviewed: Not Reviewed Attestations 2 Medical Necessity Statement*: Per primary Coding Level of Care Code Acute Code for g Fwd Diagnoses Diabetic peripheral neuropathy associated with type 2 diabetes mellitus E11.42 Cellulitis of left foot L03.116 Osteomyelitis of great toe of left foot M86.9
--- NOTE | 2025-01-31 19:00 | PC.PT ---
Pt unable to arouse x 3 attempts today. Family present and discussed her prior level of function and current mobility status. PT will evaluate at next available day, family and nursing notified. Family wishes for her to discharge to rehab facility to improve strength and independence.
--- NOTE | 2025-01-31 20:17 | PC.NURSE ---
AMS: Patient is lethargic and unable to answer questions appropriately, mumbles and cannot touch fingers to nose. This nurse informed Dr. Corcoran, orders to hold nighttime Seroquel and Zyprexa.
[2025-02-01] VITALS (58 sets, daily range): BP systolic 120–154; BP diastolic 44–103; PULSE 79–107; RESP 14–33; TEMP 36.9–37.6; O2SAT 90–100; BMI 31.9
[2025-02-01] MEDS: piperacillin-tazobactam 3.375 GM in sodium chloride 0.9% (plus) 50 ML IV ×3 (00:42→17:34)
--- NOTE | 2025-02-01 01:00 | PC.NURSE ---
Blood transfusion: Patient's hgb remained low, Dr. Skaggs gave telephone orders to transfuse 1 unit PRBCs.
[2025-02-01] MEDS: pantoprazole 40 mg SDV IVP ×2 (05:29→17:34)
[2025-02-01 06:08] LABS: Hematocrit 26.3 % (36-47); Hemoglobin 8.50 g/dL (11.27-16.99); Mean Corpuscular HGB Conc 32.3 g/dL (30-55); Mean Corpuscular Hemoglobin 29.1 pg (27-33); Mean Corpuscular Volume 90.1 fl (85-98); Nucleated Red Blood Cells % 0 %; Platelet Count 213 10^3/cmm (157-399); Red Blood Count 2.92 10^6/uL (3.85-5.65); White Blood Count 13.72 10^3/uL (3.29-11.43)
[2025-02-01 06:24] LABS: Lactate (Lactic Acid level) 1.0 mmol/L (0.5-2.2)
[2025-02-01 06:28] LABS: Alanine Aminotransferase 44 U/L (0-33); Albumin Level 3.1 g/dL (3.5-5.2); Alkaline Phosphatase 99 U/L (35-105); Anion Gap 15.0 (5-19); Aspartate Amino Transferase 93 U/L (0-32); Blood Urea Nitrogen 10 mg/dL (8-23); Calcium 8.0 mg/dL (8.5-10.5); Carbon Dioxide 25 mmol/L (22-29); Chloride 95 mmol/L (98-107); Creatinine Clr Calc Pharmacy 73.8631; Globulin 2.1 g/dL (1.3-4.6); Glucose 189 mg/dL (65-115); Osmolality Calculated 276 mOsm/kg (285-295); Potassium 4.0 mmol/L (3.5-5.1); Sodium 131 mmol/L (136-145); Total Protein 5.2 g/dL (6.6-8.7)
[2025-02-01 06:42] LABS: Magnesium 1.9 mg/dL (1.7-2.3)
[2025-02-01 06:53] LABS: NT Pro B Type Natriuretic Pept 293 pg/mL (0-125); Procalcitonin 0.18 ng/mL (0-0.5)
--- NOTE | 2025-02-01 07:25 | PC.NURSE ---
Called Dr. Ramos to report critical CK and also reported that patients right upper leg is more edematous and is firm to touch, pedal pulse present and lower extremity is warm.
[2025-02-01] MEDS: ATORVASTATIN 10 MG TABLET 20 MG PO (08:06)
[2025-02-01] MEDS: oxyCODONE 5 mg IR Tab/Cap PO ×2 (10:19→18:40)
--- NOTE | 2025-02-01 10:38 | P.PN_ITS ---
Subjective 2 Subjective: Patient was seen this morning, currently alert oriented x 3, following commands, no evidence of confusion during my examination, no facial droop, no slurring her words, no word finding difficulty no focal weakness she does complain of pain in her right thigh, she has DP PT pulses no overall skin changes, does complain of pain in her right calf Vitals/I&O/Wt Last Vital Signs Temp 98.5 F 02/01/25 09:34 Pulse 107 H 02/01/25 08:30 Resp 18 02/01/25 10:19 BP 142/44 02/01/25 08:30 Pulse Ox 94 02/01/25 10:19 O2 Del Method Room Air 02/01/25 08:30 O2 Flow Rate 6 01/27/25 12:55 01/31/25 02/01/25 02/01/25 22:59 06:59 14:59 Intake Total 880 / 1680 1080 / 2760 486 / 486 Output Total 200 / 950 550 / 1500 Balance 680 / 730 530 / 1260 486 / 486 Weight last 48 hrs Weight 89.811 kg Weight 85.82 kg Physical Exam 2 Const: COMMON NORMALS: no acute distress and patient oriented x3 Resp: COMMON NORMALS: normal respiratory effort, No retractions, No use of accessory muscles and clear to auscultation bilaterally AUSCULTATION: clear to auscultation bilaterally Cardio: COMMON NORMALS: regular rate, regular rhythm, S1 normal heart sound present and S2 normal heart sound present RATE: regular rate RHYTHM: r egular rhythm HEART SOUNDS: S1 normal heart sound present and S2 normal heart sound present GI: COMMON NORMALS: Normal to inspection, nondistended, normoactive bowel sounds present and non-tender Extremity: COMMON NORMALS: no calf tenderness NARRATIVE EXTREMITY EXAM: Left foot is wrapped Right thigh, no overlying skin changes, swollen, no erythema, diffusely tender, no warmth Right gluteus, no overlying skin changes, swollen, no erythema Right calf tenderness Right DP PT pulses palpable Neuro: COMMON NORMALS: patient oriented x3, CN's II-XII intact bilaterally, moves all extremities, no focal motor deficits and no sensory deficits noted Psych: COMMON NORMALS: mental status grossly normal Urinary Catheter Management: Wyatt: Cath Placed During This Visit: yes Reason for Continuing Indwelling Catheter: Accurate Measurement of Urinary Output in Critically Ill Patients Urinary Catheter Date of Insertion: 01/30/25 Urinary Catheter Time of Insertion: 18:14 Data 02/01/25 05:57 02/01/25 05:57 Micro: Microbiology 01/26/25 15:02 Blood Culture - Final Blood NO GROWTH AFTER 5 DAYS 01/26/25 14:19 Blood Culture - Final Blood NO GROWTH AFTER 5 DAYS 01/30/25 08:00 Blood Culture - Preliminary Blood NEGATIVE TO DATE 01/30/25 07:49 Blood Culture - Preliminary Blood NEGATIVE TO DATE A&P Assessment and plan 1. Diabetic peripheral neuropathy associated with type 2 diabetes mellitus: 2. Cellulitis of left foot: Resolved 3. Osteomyelitis of great toe of left foot: 4. Atrial fibrillation with rapid ventricular response: 5. Diabetic foot infection: 6. Fall: 7. Acute anemia: 8. Hematoma: 9. Acute CVA (cerebrovascular accident): Plan: Acute CVA vs TIA Head CT CT/CT head wo con* [id number] IMPRESSION: 1. No acute intracranial hemorrhage or edema. 2. No acute area of sulcal effacement. 3. Mild atrophy and small vessel disease. CTA head and neck CT/CT angio headneck* [id number] IMPRESSION: 1. No significant cervical carotid artery stenosis. Mild atherosclerotic plaque at the bifurcations. 2. Atherosclerotic plaque in the intracranial carotid arteries through the cavernous sinuses. Less than 50% stenosis. 3. No flow-limiting stenosis or thrombus in the [place]. 4. Dominant LEFT vertebral artery. Both vertebral arteries are patent. - NIH stroke scale 1-2 - Currently it is show scale 0 - Confounding factors acute anemia, hyponatremia, leukocytosis - Not a tPA candidate given acute anemia, soft tissue hematoma - Spoke with neurology - No evidence of embolic event, or large vessel occlusion -But does have A-fib with RVR Plan -Aspirin - Statin - Monitor hemoglobin closely - Transfused 3 units PRBC - Will consider Lovenox based on clinical progress, hemoglobin trend - PT OT, speech therapy eval - Neurochecks - NIH stroke scale Hematoma Mild degenerative joint space narrowing involving the RIGHT hip. Enthesopathy at the greater trochanter, likely within the gluteus medius tendon. No fracture or displacement is identified. RIGHT superior and inferior pubic rami are intact. There is a soft tissue hematoma centered just posterior to the hip measuring at least 10.2 x 6.8 cm. There is additional soft tissue infiltration in the subcutaneous fat. The actual size of the hematoma is difficult to determine due to its extensive nature infiltrating in the muscles. There is a well-circumscribed avulsion fracture near the RIGHT ischial tuberosity which was present on 11/22/2022. ct abdomen IMPRESSION: 1. Large right gluteal hyperdense lesion measuring 4.1 x 7.9 x 10.7 cm. It has medial component extending to the right piriformis muscle. Finding could represent a intramuscular hematoma. Clinical correlation is advised. Plan -Transfused 3 units PRBC -Hold blood thinners such as Lovenox - Pain control - Monitor closely - Monitor DP PT pulses - Continue broad-spectrum antibiotic therapy - Monitor for compartment syndrome CT chest CT/[place] [id number] IMPRESSION: 1. Age-indeterminate T12 compression deformity. Clinical correlation is advised. If indicated, MRI can be obtained to exclude acute compression fracture. 2. Coronary calcifications. 3. Mild calcified atherosclerotic changes are seen in the thoracic aorta. - Denies any back pain complaints Acute Anemia Hgb 8.5 Likely secondary to soft tissue hematoma as above Plan -Transfused 3 unit PRBC - Monitor hemoglobin thereafter Hyponatremia, resolving Serum Sodium 124-127, now 131 Component of pseudohyponatremia Component of diuretic therapy Component of poor oral intake Plan - Monitor serum sodium every 6 hours - Monitor mentation Leukocytosis? - Etiology unclear, could be from hematoma - Urinalysis WNL - CRP 144, Pro-Varghese 0.21 - Vancomycin, Zosyn - Follow blood cultures Rhabdomyolysis, 4222 - IV fluids, monitor for fluid overload, received 3 units PRBC - Monitor closely - Is receiving a unit of PRBC Hyperbilirubinemia, likely sec to hematoma Diabetic foot infection, left foot -History of left great toe osteomyelitis, -History of hardware infection, status post removal -Wound cultures growing Pseudomonas Plan - Status post surgical intervention by - Follow blood cultures - Atrial fibrillation with rapid ventricular response - transition to po amiodarone -Therapeutic Lovenox, currently on hold Low TSH, concerns for hyperthyroidism - Recheck TSH 0.02, T3 2.5, T4 1.89 US/US thyroid 09922 IMPRESSION: Normal thyroid ultrasound. Fall, -No reported head trauma, no loss of consciousness - CT head within normal limits Type 2 diabetes mellitus, low-dose sliding scale Full code Lovenox for DVT prophylaxis currently on hold, SCDs Plan for today transfuse 1 unit PRBC monitor mentation, PT OT, monitor serum sodium, CT chest abdomen pelvis repeat CT head PDMP PDMP Reviewed: Last Reviewed 01/29/25 12:43 by Alexander Ramos MD Attestations 2 Medical Necessity Statement*: Patient requires hospitalization acute CVA versus TIA, hematoma, rhabdomyolysis Diagnoses Diabetic peripheral neuropathy associated with type 2 diabetes mellitus E11.42 Cellulitis of left foot L03.116 Osteomyelitis of great toe of left foot M86.9 Atrial fibrillation with rapid ventricular response I48.91 Diabetic foot infection E11.628; L08.9 Fall W19.XXXA Acute anemia D64.9 Hematoma T14.8XXA Acute CVA (cerebrovascular accident) I63.9
--- NOTE | 2025-02-01 10:39 | USR_ITS ---
PROCEDURE INFORMATION: Exam: US Duplex Lower Extremity Veins, Bilateral Exam date and time: 02/01/2025 6:52 PM Age: 69 years old Clinical indication: Swelling (edema) of limb; Lower extremity, bilateral TECHNIQUE: Imaging protocol: Real-time duplex ultrasound of the bilateral extremities with 2-D bowser scale, color Doppler flow and spectral waveform analysis including responses to compression and other maneuvers (when performed) with image documentation. Complete exam focused on the lower extremity veins. COMPARISON: CT knee RT [id number] 11/22/2022 7:49 AM FINDINGS: Right deep veins: Unremarkable. The common femoral, femoral, proximal profunda femoral, popliteal, posterior tibial and peroneal veins are patent without thrombus. Normal Doppler waveforms. Normal compressibility and/or augmentation response. Left deep veins: Unremarkable. The common femoral, femoral, proximal profunda femoral, popliteal, posterior tibial and peroneal veins are patent without thrombus. Normal Doppler waveforms. Normal compressibility and/or augmentation response. Superficial veins: Greater saphenous veins at the saphenofemoral junctions are patent bilaterally without thrombus. Soft tissues: Unremarkable. US/CV venous duplex [facility] [id number] IMPRESSION: No sonographic evidence of deep venous thrombosis.
[2025-02-01] MEDS: morphine 4 mg/mL SDV 1 mL 2 MG IVP (11:22)
--- NOTE | 2025-02-01 12:42 | PC.NURSE ---
Patients daughter at bedside states patient has been mildly confused at home for the past year. Daughter, and patients brother at bedside as well as a nephew who states he is a CLUB MANAGER at another facility, are expressing much concern for patients mentation citing pain medication given today is likely the source of patients confusion, and that patient should not be given medication unless visibly in pain. This nurse educated all family present that when patient reports pain, pain will be treated with medication ordered.
--- NOTE | 2025-02-01 14:50 | PC.NURSE ---
Patient tolerated range of motion exercises very well and can be seen in her room at the time of this note performing exercises on her own. Patient reports right upper extremity discomfort while performing exercises and right shoulder discomfort, but denies need for next dose of pain medication. Patient is confused, but is able to tell me she is in the hospital in [place] and that it is January. Patient states the year as 1919. Patient has discussions with family members that are not present in her room. Patient is able to tell me that she is in the hospital for surgery on her left foot and that she fell a few days ago and that is why my hip hurts . Patient tolerated being up to recliner, but requested to be helped back to bed citing discomfort in her hip.
[2025-02-01 18:41] LABS: Hematocrit 23.9 % (36-47); Hemoglobin 7.90 g/dL (11.27-16.99); Mean Corpuscular HGB Conc 33.1 g/dL (30-55); Mean Corpuscular Hemoglobin 28.8 pg (27-33); Mean Corpuscular Volume 87.2 fl (85-98); Nucleated Red Blood Cells % 0.1 %; Platelet Count 258 10^3/cmm (157-399); Red Blood Count 2.74 10^6/uL (3.85-5.65); White Blood Count 14.58 10^3/uL (3.29-11.43)
--- NOTE | 2025-02-01 22:14 | PC.NURSE ---
Received order from Dr Skaggs to hold patient's nightly PO seroquel. See MAR.
[2025-02-02] VITALS (39 sets, daily range): BP systolic 111–169; BP diastolic 58–97; PULSE 72–110; RESP 13–29; TEMP 37.1–37.2; O2SAT 92–100
[2025-02-02] MEDS: piperacillin-tazobactam 3.375 GM in sodium chloride 0.9% (plus) 50 ML IV ×3 (01:33→17:28)
[2025-02-02 04:43] LABS: Hematocrit 23.9 % (36-47); Hemoglobin 7.70 g/dL (11.27-16.99); Mean Corpuscular HGB Conc 32.2 g/dL (30-55); Mean Corpuscular Hemoglobin 28.9 pg (27-33); Mean Corpuscular Volume 89.8 fl (85-98); Nucleated Red Blood Cells % 0 %; Platelet Count 258 10^3/cmm (157-399); Red Blood Count 2.66 10^6/uL (3.85-5.65); White Blood Count 14.15 10^3/uL (3.29-11.43)
[2025-02-02 05:00] LABS: Lactate (Lactic Acid level) 0.7 mmol/L (0.5-2.2)
[2025-02-02 05:10] LABS: NT Pro B Type Natriuretic Pept 754 pg/mL (0-125); Procalcitonin 0.12 ng/mL (0-0.5)
[2025-02-02 05:21] LABS: Alanine Aminotransferase 58 U/L (0-33); Albumin Level 2.9 g/dL (3.5-5.2); Alkaline Phosphatase 126 U/L (35-105); Aspartate Amino Transferase 83 U/L (0-32); Blood Urea Nitrogen 9 mg/dL (8-23); Calcium 8.0 mg/dL (8.5-10.5); Carbon Dioxide 24 mmol/L (22-29); Chloride 93 mmol/L (98-107); Creatinine Clr Calc Pharmacy 73.8631; Globulin 3.1 g/dL (1.3-4.6); Glucose 156 mg/dL (65-115); Magnesium 1.8 mg/dL (1.7-2.3); Osmolality Calculated 270 mOsm/kg (285-295); Sodium 129 mmol/L (136-145); Total Protein 6.0 g/dL (6.6-8.7)
[2025-02-02] MEDS: pantoprazole 40 mg SDV IVP ×2 (05:21→17:29)
[2025-02-02 05:22] LABS: Anion Gap 15.4 (5-19); Potassium 3.4 mmol/L (3.5-5.1)
[2025-02-02] MEDS: ATORVASTATIN 10 MG TABLET 20 MG PO (08:11)
[2025-02-02] MEDS: potassium phosphate (mEq K) 40 MEQ in sodium chloride 0.9% (100 ml) 100 ML 27.25 MEQ IV (08:33)
[2025-02-02] MEDS: HYDROcodone-acetaminophen 5-325 mg Tablet 1 TAB PO (10:03)
--- NOTE | 2025-02-02 11:48 | PC.SOCIAL ---
IMM Update pg 2 of IMM Updated and reviewed w/ patient. Copy provided and copy dated, initialed and placed in chart.
--- NOTE | 2025-02-02 14:45 | P.PN_ITS ---
Subjective 2 Subjective: Seen this morning. Family at bedside. Patient complains of pain in right leg secondary to hematoma. Thigh quite taut. Creatinine kinase 2698 trending down. Phosphorus 1.7, potassium 3.4, sodium 129. BNP 754. Vitals are stable. Hemoglobin 7.7 today. Seems to be stabilizing. Will recheck in AM. Vitals/I&O/Wt Last Vital Signs Temp 98.9 F 02/02/25 10:00 Pulse 79 02/02/25 12:30 Resp 18 02/02/25 12:30 BP 124/75 02/02/25 12:30 Pulse Ox 95 02/02/25 12:30 O2 Del Method Room Air 02/02/25 12:30 O2 Flow Rate 6 01/27/25 12:55 02/01/25 02/02/25 02/02/25 22:59 06:59 14:59 Intake Total 1002 / 1760 50 / 1810 50 / 50 Output Total 525 / 525 850 / 1375 Balance 477 / 1235 -800 / 435 50 / 50 Weight last 48 hrs Weight 93.5 kg Weight 89.811 kg Physical Exam 2 Const: COMMON NORMALS: no acute distress and patient oriented x3 Resp: COMMON NORMALS: normal respiratory effort, No retractions, No use of accessory muscles and clear to auscultation bilaterally AUSCULTATION: clear to auscultation bilaterally Cardio: COMMON NORMALS: regular rate, regular rhythm, S1 normal heart sound present and S2 normal heart sound present RATE: regular rate RHYTHM: r egular rhythm HEART SOUNDS: S1 normal heart sound present and S2 normal heart sound present GI: COMMON NORMALS: Normal to inspection, nondistended, normoactive bowel sounds present and non-tender Extremity: COMMON NORMALS: no calf tenderness NARRATIVE EXTREMITY EXAM: Left foot is wrapped Right thigh, no overlying skin changes, swollen, no erythema, diffusely tender, no warmth, right thigh taut. Right gluteus, no overlying skin changes, swollen, no erythema Right calf tenderness Right DP PT pulses palpable Neuro: COMMON NORMALS: patient oriented x3, CN's II-XII intact bilaterally, moves all extremities, no focal motor deficits and no sensory deficits noted Psych: COMMON NORMALS: mental status grossly normal Urinary Catheter Management: Wyatt: Cath Placed During This Visit: yes Reason for Continuing Indwelling Catheter: Accurate Measurement of Urinary Output in Critically Ill Patients Urinary Catheter Date of Insertion: 01/30/25 Urinary Catheter Time of Insertion: 18:14 Data 02/02/25 04:38 02/02/25 04:38 A&P Assessment and plan 1. Diabetic peripheral neuropathy associated with type 2 diabetes mellitus: 2. Cellulitis of left foot: Resolved 3. Osteomyelitis of great toe of left foot: 4. Atrial fibrillation with rapid ventricular response: 5. Diabetic foot infection: 6. Fall: 7. Acute anemia: 8. Hematoma: 9. Acute CVA (cerebrovascular accident): Plan: Acute CVA vs TIA Head CT CT/CT head wo con* [id number] IMPRESSION: 1. No acute intracranial hemorrhage or edema. 2. No acute area of sulcal effacement. 3. Mild atrophy and small vessel disease. CTA head and neck CT/CT angio headneck* [id number] IMPRESSION: 1. No significant cervical carotid artery stenosis. Mild atherosclerotic plaque at the bifurcations. 2. Atherosclerotic plaque in the intracranial carotid arteries through the cavernous sinuses. Less than 50% stenosis. 3. No flow-limiting stenosis or thrombus in the [place]. 4. Dominant LEFT vertebral artery. Both vertebral arteries are patent. - NIH stroke scale 1-2 - Currently it is show scale 0 - Confounding factors acute anemia, hyponatremia, leukocytosis - Not a tPA candidate given acute anemia, soft tissue hematoma - Spoke with neurology - No evidence of embolic event, or large vessel occlusion -But does have A-fib with RVR Plan -Aspirin - Statin - Monitor hemoglobin closely - Transfused 3 units PRBC - Will consider Lovenox based on clinical progress, hemoglobin trend - PT OT, speech therapy eval - Neurochecks - NIH stroke scale Hematoma Mild degenerative joint space narrowing involving the RIGHT hip. Enthesopathy at the greater trochanter, likely within the gluteus medius tendon. No fracture or displacement is identified. RIGHT superior and inferior pubic rami are intact. There is a soft tissue hematoma centered just posterior to the hip measuring at least 10.2 x 6.8 cm. There is additional soft tissue infiltration in the subcutaneous fat. The actual size of the hematoma is difficult to determine due to its extensive nature infiltrating in the muscles. There is a well-circumscribed avulsion fracture near the RIGHT ischial tuberosity which was present on 11/22/2022. ct abdomen IMPRESSION: 1. Large right gluteal hyperdense lesion measuring 4.1 x 7.9 x 10.7 cm. It has medial component extending to the right piriformis muscle. Finding could represent a intramuscular hematoma. Clinical correlation is advised. Plan -Transfused 3 units PRBC -Hold blood thinners such as Lovenox - Pain control - Monitor closely - Monitor DP PT pulses - Continue broad-spectrum antibiotic therapy - Monitor for compartment syndrome CT chest CT/[place] [id number] IMPRESSION: 1. Age-indeterminate T12 compression deformity. Clinical correlation is advised. If indicated, MRI can be obtained to exclude acute compression fracture. 2. Coronary calcifications. 3. Mild calcified atherosclerotic changes are seen in the thoracic aorta. - Denies any back pain complaints Acute Anemia Hgb 8.5 Likely secondary to soft tissue hematoma as above Plan -Transfused 3 unit PRBC - Monitor hemoglobin thereafter Hyponatremia, resolving Serum Sodium 124-127, now 131 Component of pseudohyponatremia Component of diuretic therapy Component of poor oral intake Plan - Monitor serum sodium every 6 hours - Monitor mentation Leukocytosis? - Etiology unclear, could be from hematoma - Urinalysis WNL - CRP 144, Pro-Varghese 0.21 - Vancomycin, Zosyn - Follow blood cultures Rhabdomyolysis, 4222 - IV fluids, monitor for fluid overload, received 3 units PRBC - Monitor closely - Is receiving a unit of PRBC Hyperbilirubinemia, likely sec to hematoma Diabetic foot infection, left foot -History of left great toe osteomyelitis, -History of hardware infection, status post removal -Wound cultures growing Pseudomonas Plan - Status post surgical intervention by - Follow blood cultures - Atrial fibrillation with rapid ventricular response - transition to po amiodarone -Therapeutic Lovenox, currently on hold Low TSH, concerns for hyperthyroidism - Recheck TSH 0.02, T3 2.5, T4 1.89 US/US thyroid 30191 IMPRESSION: Normal thyroid ultrasound. Fall, -No reported head trauma, no loss of consciousness - CT head within normal limits Type 2 diabetes mellitus, low-dose sliding scale Full code Lovenox for DVT prophylaxis currently on hold, SCDs Plan for today transfuse 1 unit PRBC monitor mentation, PT OT, monitor serum sodium, CT chest abdomen pelvis repeat CT head 02/02/2025 Blood cultures negative to date. Patient is status post amputation left great toe secondary to osteomyelitis. Weightbearing as tolerated. PT dispensed postop shoe left foot. Elevate foot while resting. Surgical dressing to be changed today. She has been lethargic overnight. Concern by nursing staff for sedation secondary to medications. We have cut down Zyprexa to 2.5 twice daily and reduce Seroquel to 50 daily. If needed we may go up on Seroquel. Discussed this with family. Stop IR oxycodone and IV morphine. Will switch to hydrocodone 2.5 every 8 hours as needed. She did get one-time dose of hydrocodone 5 however patient very sleepy after that. She seems to be quite sensitive to opioid. Rhabdomyolysis?creatinine kinase decreasing and trending down slowly. Monitor for fluid overload. Patient is status post 3 unit packed RBCs. Is on room air laying in bed. Family states she has been confused. She is alert oriented x 3 however she has made comments that she has been to [place] however has never been there before. Family also states that patient stated that she is upset that she was sent home on a After her knee surgeries which is also not true. They question her mental capacity at this time. Patient possibly has some hospital-acquired delirium. We will continue to monitor at this time. Will switch to Zyprexa 2.5 twice daily. Serum sodium 129. Check urine sodium Consult nephrology. Continue PT OT. Patient able to walk with a wheeled walker at baseline. She is unable to bear weight on right leg secondary to hematoma. Requires continued hospitalization at this time for pain control and monitoring of hemoglobin. Patient does have a history of atrial fibrillation and was on 325 aspirin at home. We will continue to hold that at this time. Continue Vanco and Zosyn. PDMP PDMP Reviewed: Not Reviewed Attestations 2 Medical Necessity Statement*: Patient is lethargic possibly secondary to polypharmacy. We have made medication adjustments. Continued need for hemoglobin monitoring needed at this time. She will require continued hospitalization. Coding Level of Care Code Acute Code for [employer] Diagnoses Diabetic peripheral neuropathy associated with type 2 diabetes mellitus E11.42 Cellulitis of left foot L03.116 Osteomyelitis of great toe of left foot M86.9 Atrial fibrillation with rapid ventricular response I48.91 Diabetic foot infection E11.628; L08.9 Fall W19.XXXA Acute anemia D64.9 Hematoma T14.8XXA Acute CVA (cerebrovascular accident) I63.9
--- NOTE | 2025-02-02 17:49 | PM.CONSULT ---
Providers/Reason For Consult Consulting Physician/Specialty*: [facility]/Nephrology Reason for Consult*: Hyponatremia Attending Physician: Elin Main MD Primary Care Provider: Carter Yusuf MD History of Present Illness History of Present Illness Kaylee Ch is a 69 year old female Patient is a 69-year-old female with past medical history of diabetes hypertension dyslipidemia history of TIA was admitted to the hospital on 01/26/2025 due to concerns of left great toe swelling and erythema. Patient was seen by podiatry and was thought to have osteomyelitis of the left great toe and she underwent left great toe amputation on 01/27/2025. During the hospital course patient was treated with IV antibiotics and also developed A-fib with rapid ventricular response and also had acute CVA. Nephrology is consulted today for hyponatremia, sodium on presentation was 132 and sodium has fluctuated anywhere from 124-132 during this presentation. On review of prior labs patient has patient has chronic hyponatremia with a sodium level in the low 130s. Review of Systems Narrative: negative Medications/Allergies Home Medications ?Medication ?Instructions ?Recorded ?Confirmed ?Last Taken ?Type diazepam 10 mg tablet 10 mg PO BID PRN Sleep 08/28/19 01/26/25 01/25/25 History ascorbic acid 7.5 mg-vit E 7.5 1 tab PO DAILY@1000 11/12/20 01/26/25 01/25/25 History unit-biotin 1,250 mcg chewable tablet (Hair,Skin,Nails with Biotin) multivitamin 1 tab PO DAILY@1000 11/12/20 01/26/25 01/25/25 History insulin syringe-needle U-100 1 mL #100 ea 09/06/22 01/26/25 Unknown Rx 28 gauge x 1/2 (BD Insulin Syringe) ramelteon 8 mg tablet 8 mg PO BEDTIME 10/30/22 01/26/25 01/25/25 History cyanocobalamin (vitamin B-12) 1,000 mcg PO DAILY 01/03/23 01/26/25 01/25/25 History 1,000 mcg tablet (Vitamin B-12) Diabetic shoes #1 ea 04/11/23 01/26/25 Unknown Rx blood-glucose meter #1 ea 06/12/23 01/26/25 Unknown Rx blood sugar diagnostic (Blood #200 ea 06/15/23 01/26/25 Unknown Rx Glucose Test strips) blood-glucose meter (Accu-Chek #1 ea 06/27/23 01/26/25 Unknown Rx Guide Glucose Meter) blood sugar diagnostic (Accu-Chek #100 ea 07/26/23 01/26/25 Unknown Rx Guide test strips) lancets (Accu-Chek Softclix #200 ea 09/14/23 01/26/25 Unknown Rx Lancets) aspirin 325 mg tablet 325 mg PO DAILY 07/18/24 01/26/25 01/25/25 History atorvastatin 20 mg tablet 20 mg PO .DAILY@10AM 07/18/24 01/26/25 01/25/25 History cyclobenzaprine 10 mg tablet 10 mg PO TID PRN Muscle Spasm 07/18/24 01/26/25 01/13/25 History gabapentin 100 mg capsule 100 mg PO BID 07/18/24 01/26/25 01/25/25 History glimepiride 4 mg tablet 4 mg PO BID 07/18/24 01/26/25 01/25/25 History meloxicam 15 mg tablet 15 mg PO DAILY 07/18/24 01/26/25 01/25/25 History potassium chloride 20 mEq 20 meq PO .DAILY@10AM 07/18/24 01/26/25 01/25/25 History tablet,extended release propranolol 80 mg capsule,24 80 mg PO BID 10/30/24 01/26/25 01/25/25 History hr,extended release Diabetic Shoes with Inserts #1 ea 12/11/24 01/26/25 Unknown Rx mupirocin 2 % topical ointment 1 applic topical BID 2 weeks #22 12/11/24 01/26/25 01/25/25 Rx grams lamotrigine 200 mg tablet 200 mg PO BID 12/30/24 01/26/25 01/25/25 History insulin syringe-needle U-100 1 mL #100 ea 01/02/25 01/26/25 Unknown Rx 31 gauge x 5/16 (TRUEplus Insulin) cam boot to right #1 ea 01/05/25 01/26/25 Unknown Rx ciprofloxacin HCl 500 mg tablet 500 mg PO BID 14 days #28 tabs 01/19/25 01/26/25 01/25/25 Rx hydrocodone 7.5 mg-acetaminophen 1 tab PO Q6H pain 7 days #28 tabs 01/19/25 01/26/25 Unknown Rx 325 mg tablet duloxetine 60 mg capsule,delayed 120 mg PO QAM 01/26/25 01/26/25 01/25/25 History release fluoxetine 20 mg capsule 20 mg PO QAM 01/26/25 01/26/25 01/25/25 History levothyroxine 200 mcg tablet 200 mcg PO .DAILY@10AM 01/26/25 01/26/25 01/25/25 History lidocaine 5 % topical patch 1 patch topical DAILY PRN Pain 01/26/25 01/26/25 Unknown History (Lidoderm) olanzapine 5 mg tablet 5 mg PO BEDTIME 01/26/25 01/26/25 01/25/25 History quetiapine 400 mg tablet 400 mg PO BEDTIME 01/26/25 01/26/25 01/25/25 History semaglutide 0.25 mg or 0.5 mg (2 0.5 mg (0.736 mL) SUBCUT .weekly 01/27/25 Unknown Rx mg/3 mL) subcutaneous pen injector #3 mL ([employer]) omega 1-dxg-cub-fish oil 1,200 mg See Rx Instructions .Route .COMPLEX 01/30/25 01/30/25 Unknown History (144 mg-216 mg) capsule (Fish Oil) Allergies Allergy/AdvReac Type Severity Reaction Status Date / Time azithromycin (From Zithromax) Allergy rash Verified 01/27/25 11:18 cetirizine (From Zyrtec) Allergy rash Verified 01/27/25 11:18 lisinopril (From Zestril) Allergy ALGY-Swell Verified 01/27/25 11:18 Lip/Tongue/Throat metformin AdvReac Intermediate diarrhea Verified 01/27/25 11:18 topiramate (From Topamax) AdvReac Intermediate diarrhea Verified 01/27/25 11:18 Current Medications Generic Name Dose Route Start Last Admin Trade Name Freq PRN Reason Stop Dose Admin Acetaminophen 650 mg 01/26/25 17:35 01/28/25 05:06 Acetaminophen 325 Mg Tablet PO 650 mg Q6H PRN Administration Mild/Mod Pain Or Temp >/= 101 Amiodarone HCl 400 mg 01/30/25 18:00 02/02/25 17:28 Amiodarone 200 Mg Tablet PO 400 mg BID JACQUELINE Administration Aspirin 81 mg 01/30/25 09:45 02/02/25 08:11 Aspirin 81 Mg Ec Tablet PO 81 mg DAILY JACQUELINE Administration Atorvastatin Calcium 20 mg 01/27/25 09:00 02/02/25 08:11 Atorvastatin 10 Mg Tablet PO 20 mg DAILY JACQUELINE Administration Diazepam 10 mg 01/26/25 17:42 01/28/25 07:46 Diazepam 5 Mg Tablet PO 10 mg BID PRN Administration Sleep Duloxetine HCl 120 mg 01/27/25 06:00 02/02/25 05:18 Duloxetine 60 Mg Capsule PO 120 mg QAM JACQUELINE Administration Fluoxetine HCl 20 mg 01/27/25 06:00 02/02/25 05:19 Fluoxetine 20 Mg Capsule PO 20 mg QAM JACQUELINE Administration Gabapentin 100 mg 01/26/25 18:00 02/02/25 17:28 Gabapentin 100 Mg Capsule PO 100 mg BID JACQUELINE Administration Vancomycin HCl 1,000 mg/ 250 mls @ 250 mls/hr 01/30/25 08:00 02/02/25 17:36 Sodium Chloride IV Infused Q12H JACQUELINE Infusion Piperacillin Sod/Tazobactam 50 mls @ 12.5 mls/hr 01/30/25 09:00 02/02/25 17:28 Sod 3.375 gm/ Sodium Chloride IV 12.5 mls/hr Q8H JACQUELINE Administration Insulin Human Lispro 0 unit 01/26/25 18:00 02/02/25 17:24 Insulin Lispro 100 Unit/1 Ml SUBCUT Not Given TIDWM [facility] Protocol Lamotrigine 200 mg 01/26/25 18:00 02/02/25 17:28 Lamotrigine 100 Mg Tablet PO 200 mg BID JACQUELINE Administration Olanzapine 2.5 mg 02/02/25 18:00 02/02/25 17:28 Olanzapine 5 Mg Tablet PO 2.5 mg BID JACQUELINE Administration Pantoprazole Sodium 40 mg 01/26/25 17:35 02/02/25 17:29 Pantoprazole 40 Mg Sdv IVP 40 mg Q12H JACQUELINE Administration Sucralfate 1 gm 01/26/25 18:00 02/02/25 17:28 Sucralfate 1 Gm Tablet PO 1 gm BID JACQUELINE Administration PFSH Acute PFSH: Medical History (Updated 02/02/25 @ 20:00 by Chanelle Arroyo MD) 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 Left shoulder pain Hypothyroid Hyperlipidemia Hypertension Diabetes mellitus Suspected COVID-19 virus infection Hypothyroidism Chronic diarrhea Tension headache, chronic CVA (cerebral vascular accident) TIA (transient ischemic attack) History of aphasia Hx of kidney disease Hx of type 2 diabetes mellitus History of anemia History of GI bleed History of hypothyroidism Hx of primary hypertension History of bipolar disorder History of anxiety History of depression History of posttraumatic stress disorder (PTSD) Surgical History Hx of appendectomy History of back surgery Hx of cholecystectomy Hx of hysterectomy Hx of neck surgery Social History Smoking and tobacco/nicotine status: never used tobacco/nicotine Alcohol intake: current Alcohol intake frequency: holidays/special occasions only Substance/Drug Use: never Vitals/I&O/Wt Last Vital Signs Temp 98.9 F 02/02/25 10:00 Pulse 78 02/02/25 17:00 Resp 20 H 02/02/25 17:00 BP 111/62 02/02/25 17:00 Pulse Ox 96 02/02/25 17:00 O2 Del Method Room Air 02/02/25 17:00 O2 Flow Rate 6 01/27/25 12:55 02/02/25 02/02/25 02/02/25 06:59 14:59 22:59 Intake Total 50 / 1810 50 / 50 250 / 300 Output Total 850 / 1375 1250 / 1250 Balance -800 / 435 50 / 50 -1000 / -950 Weight last 48 hrs Weight 93.5 kg Weight 89.811 kg Physical Exam Narrative: awake , alert , no distress intermittent confusion PEERLA S1S2 RRR perr eport Lungs clear per report Abd , soft , non tender No edema Urinary Catheter Management: Wyatt: Cath Placed During This Visit: yes Reason for Continuing Indwelling Catheter: Accurate Measurement of Urinary Output in Critically Ill Patients Urinary Catheter Date of Insertion: 01/30/25 Urinary Catheter Time of Insertion: 18:14 Data 02/02/25 04:38 02/02/25 18:50 A&P Assessment and plan 1. Hyponatremia: 1. Acute on chronic hyponatremia: Baseline sodiums are in the low 130s range and sodium has fluctuated anywhere from 1 424-132 during this admission. 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 Sodium did drop further during the hospital stay partly from pseudohyponatremia -Today sodium is 129, will add fluid restriction check urine sodium and urine osmolality - Will continue SSRIs for now as long as patient's sodium can be maintained above 130. - Replace free water restriction of 1500 mL/day - If no improvement may add salt tablets Patient evaluated using audiovisual cart. Time spent 40 minutes PDMP PDMP Reviewed: Not Reviewed Consult Attestations Medical Necessity Statement: per mediicne team Coding Level of Care Code Acute Code for [facility] Diagnoses Hyponatremia E87.1
[2025-02-02 19:23] LABS: Sodium 130 mmol/L (136-145)
[2025-02-03] VITALS (30 sets, daily range): BP systolic 100–156; BP diastolic 49–97; PULSE 69–84; RESP 14–24; TEMP 36.3–37.2; O2SAT 90–98
[2025-02-03] MEDS: piperacillin-tazobactam 3.375 GM in sodium chloride 0.9% (plus) 50 ML IV ×3 (00:48→17:14)
[2025-02-03 04:50] LABS: Alanine Aminotransferase 85 U/L (0-33); Albumin Level 2.1 g/dL (3.5-5.2); Alkaline Phosphatase 152 U/L (35-105); Blood Urea Nitrogen 8 mg/dL (8-23); Calcium 8.0 mg/dL (8.5-10.5); Carbon Dioxide 21 mmol/L (22-29); Chloride 96 mmol/L (98-107); Creatinine Clr Calc Pharmacy 75.3873; Globulin 3.7 g/dL (1.3-4.6); Glucose 200 mg/dL (65-115); Osmolality Calculated 276 mOsm/kg (285-295); Sodium 131 mmol/L (136-145); Total Protein 5.8 g/dL (6.6-8.7)
[2025-02-03 05:27] LABS: Hematocrit 22.3 % (36-47); Hemoglobin 7.20 g/dL (11.27-16.99); Mean Corpuscular HGB Conc 32.3 g/dL (30-55); Mean Corpuscular Hemoglobin 29.1 pg (27-33); Mean Corpuscular Volume 90.3 fl (85-98); Nucleated Red Blood Cells % 0 %; Platelet Count 326 10^3/cmm (157-399); Red Blood Count 2.47 10^6/uL (3.85-5.65); White Blood Count 12.39 10^3/uL (3.29-11.43)
[2025-02-03 05:34] LABS: Anion Gap 17.4 (5-19); Aspartate Amino Transferase 79 U/L (0-32); Potassium 3.4 mmol/L (3.5-5.1)
[2025-02-03 05:36] LABS: Magnesium 2.1 mg/dL (1.7-2.3)
[2025-02-03] MEDS: pantoprazole 40 mg SDV IVP ×2 (05:53→17:37)
[2025-02-03] MEDS: ATORVASTATIN 10 MG TABLET 20 MG PO (08:25)
--- NOTE | 2025-02-03 09:48 | P.PN_ITS ---
Subjective 2 Subjective: no new c/o Medications: Reviewed: Yes Vitals/I&O/Wt Last Vital Signs Temp 97.4 F L 02/03/25 08:00 Pulse 80 02/03/25 09:00 Resp 19 H 02/03/25 09:00 BP 147/72 02/03/25 09:00 Pulse Ox 96 02/03/25 09:00 O2 Del Method Room Air 02/03/25 08:00 O2 Flow Rate 6 01/27/25 12:55 02/02/25 02/03/25 02/03/25 22:59 06:59 14:59 Intake Total 1089.0909 / 1139.0909 100 / 1239.0909 Output Total 1250 / 1250 1200 / 2450 Balance -160.9091 / -110.9091 -1100 / -1210.9091 Weight last 48 hrs Weight 91 kg Weight 93.5 kg Physical Exam 2 Narrative: awake , alert , no distress intermittent confusion PEERLA S1S2 RRR perr eport Lungs clear per report Abd , soft , non tender No edema Urinary Catheter Management: Wyatt: Cath Placed During This Visit: yes Reason for Continuing Indwelling Catheter: Accurate Measurement of Urinary Output in Critically Ill Patients Urinary Catheter Date of Insertion: 01/30/25 Urinary Catheter Time of Insertion: 18:14 Data 02/03/25 04:24 02/03/25 02:20 A&P Assessment and plan 1. Hyponatremia: 1. Acute on chronic hyponatremia: Baseline sodiums are in the low 130s range and sodium has fluctuated anywhere from 1 424-132 during this admission. 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 Sodium did drop further during the hospital stay partly from pseudohyponatremia -Na improved to 131,, c/w fluid restriction of 1500 ml/day , check urine sodium and urine osmolality - Will continue SSRIs for now as long as patient's sodium can be maintained above 130. - If no improvement may add salt tablets 2. Rhabdomyolysis , mild , s/p Ivfs , check CPK daily 3. Anemia , sec to blood loss Patient evaluated using audiovisual cart. Time spent 40 minutes PDMP PDMP Reviewed: Not Reviewed Attestations 2 Medical Necessity Statement*: per braxton Coding Level of Care Code Acute Code for [facility] Diagnoses Hyponatremia E87.1
--- NOTE | 2025-02-03 12:02 | CTR_ITS ---
PROCEDURE INFORMATION: Exam: CT Pelvis With Contrast Exam date and time: 02/03/2025 2:52 PM Age: 69 years old Clinical indication: Swelling or effusion of joint; RT hip/thigh hematoma. PT had toe amputated 01/28/25. PT fell on 01/28/25 landing on right side. PT hemoglobin keeps dropping. PT received blood before coming to CT. Angio done for bleed and 3 minute delay preformed. ; Additional info: Hip/thigh hematoma, please extend to hip and femur TECHNIQUE: Imaging protocol: Computed tomography of the pelvis with contrast. Radiation optimization: All CT scans at this facility use at least one of these dose optimization techniques: automated exposure control; mA and/or kV adjustment per patient size (includes targeted exams where dose is matched to clinical indication); or iterative reconstruction. Contrast material: OMNI 350; Contrast volume: 75 ml; Contrast route: INTRAVENOUS (IV); COMPARISON: CR XR hip BI 2V wo/w pel [id number] 01/28/2025 1:32 PM RADIATION DOSE METRICS: Total DLP (mGy-cm): 707.35 FINDINGS: Intestine: Visualized small and large intestine are unremarkable. Appendix: No evidence of appendicitis. Intraperitoneal space: Unremarkable. No free air. No significant fluid collection. Lymph nodes: Unremarkable. No enlarged lymph nodes. Reproductive: Normal as visualized. Urinary bladder: Normal. No mass. Bones/joints: Unremarkable. No acute fracture. No dislocation. Soft tissues: There is a rounded intramuscular hematoma involving the right gluteal muscle group. The hematoma measures 11 cm in length and 7.6 cm in diameter. There is no evidence of active contrast extravasation. Subcutaneous contusion is noted throughout the right buttock. In addition, there is large area of poorly defined intramuscular edema involving the quadriceps muscle group of the anterior thigh. There is no contrast extravasation here. There is overlying subcutaneous edema. This abnormality measures around 17 cm in length with a maximum width of [address]/CT pelvis w con* [id number] IMPRESSION: 1. Large intramuscular hematoma of the right gluteal muscle group with no evidence of active contrast extravasation 2. Large poorly defined area of edema involving the anterior musculature of the right. I favor this to represent muscular contusion. No contrast extravasation noted.
--- NOTE | 2025-02-03 12:06 | CTR_ITS ---
PROCEDURE INFORMATION: Exam: CT Right Lower Extremity With Contrast, Thigh Exam date and time: 02/03/2025 2:52 PM Age: 69 years old Clinical indication: Swelling or effusion of joint; RT hip/thigh hematoma. PT had toe amputated 01/28/25. PT fell on 01/28/25 landing on right side. PT hemoglobin keeps dropping. PT received blood before coming to CT. Angio done for bleed and 3 minute delay preformed. ; Additional info: Hi(/thigh hematoma, please extend to hip and femur TECHNIQUE: Imaging protocol: CT of the right lower extremity with intravenous contrast was performed. Exam focused on the thigh. Radiation optimization: All CT scans at this facility use at least one of these dose optimization techniques: automated exposure control; mA and/or kV adjustment per patient size (includes targeted exams where dose is matched to clinical indication); or iterative reconstruction. Contrast material: OMNI 350; Contrast volume: 50 ml; Contrast route: INTRAVENOUS (IV); COMPARISON: [place] [id number] 02/01/2025 6:52 PM RADIATION DOSE METRICS: Total DLP (mGy-cm): 707.35 FINDINGS: Bones/joints: See Soft tissues finding. Soft tissues: There is a large poorly defined area of edema involving the anterior musculature of the right. The edema begins in the upper thigh just below the level of the lesser trochanter and extends down to just above the knee joint. This area measures around 17 cm in length and 8 cm in width. There is no evidence of active contrast extravasation. There is overlying subcutaneous edema. CT/CT femur RT w con [id number] IMPRESSION: Large poorly defined area of edema involving the anterior musculature of the right. I favor this to represent contusion. No evidence of active bleeding.
[2025-02-03] MEDS: iohexol 350 mg/mL 500 mL Btl (per mL) IV (15:02)
--- NOTE | 2025-02-03 15:48 | P.PN_ITS ---
Subjective 2 Subjective: seen today HB continus to trend down HB 7.2 this am pt continues to complain of pain in leg and cannot weight bear on right side has pulses present Vitals/I&O/Wt Last Vital Signs Temp 98.4 F 02/03/25 15:41 Pulse 75 02/03/25 15:41 Resp 17 02/03/25 15:41 BP 153/68 02/03/25 15:41 Pulse Ox 97 02/03/25 15:41 O2 Del Method Room Air 02/03/25 14:00 O2 Flow Rate 6 01/27/25 12:55 02/03/25 02/03/25 02/03/25 06:59 14:59 22:59 Intake Total 100 / 1239.0909 1150 / 1150 Output Total 1200 / 2450 Balance -1100 / -1210.9091 1150 / 1150 Weight last 48 hrs Weight 91 kg Weight 93.5 kg Physical Exam 2 Const: COMMON NORMALS: no acute distress and patient oriented x3 Resp: COMMON NORMALS: normal respiratory effort, No retractions, No use of accessory muscles and clear to auscultation bilaterally AUSCULTATION: clear to auscultation bilaterally Cardio: COMMON NORMALS: regular rate, regular rhythm, S1 normal heart sound present and S2 normal heart sound present RATE: regular rate RHYTHM: r egular rhythm HEART SOUNDS: S1 normal heart sound present and S2 normal heart sound present GI: COMMON NORMALS: Normal to inspection, nondistended, normoactive bowel sounds present and non-tender Extremity: COMMON NORMALS: no calf tenderness NARRATIVE EXTREMITY EXAM: Left foot is wrapped Right thigh, no overlying skin changes, swollen, no erythema, diffusely tender, no warmth, right thigh taut. Right gluteus, no overlying skin changes, swollen, no erythema Right calf tenderness Right DP PT pulses palpable Neuro: COMMON NORMALS: patient oriented x3, CN's II-XII intact bilaterally, moves all extremities, no focal motor deficits and no sensory deficits noted Psych: COMMON NORMALS: mental status grossly normal Urinary Catheter Management: Wyatt: Cath Placed During This Visit: yes Reason for Continuing Indwelling Catheter: Accurate Measurement of Urinary Output in Critically Ill Patients Urinary Catheter Date of Insertion: 01/30/25 Urinary Catheter Time of Insertion: 18:14 Data 02/03/25 04:24 07/29/25 02:20 A&P Assessment and plan 1. Diabetic peripheral neuropathy associated with type 2 diabetes mellitus: 2. Cellulitis of left foot: Resolved 3. Osteomyelitis of great toe of left foot: 4. Atrial fibrillation with rapid ventricular response: 5. Diabetic foot infection: 6. Fall: 7. Acute anemia: 8. Hematoma: 9. Acute CVA (cerebrovascular accident): Plan: Acute CVA vs TIA Head CT CT/CT head wo con* [id number] IMPRESSION: 1. No acute intracranial hemorrhage or edema. 2. No acute area of sulcal effacement. 3. Mild atrophy and small vessel disease. CTA head and neck CT/CT angio headneck* [id number] IMPRESSION: 1. No significant cervical carotid artery stenosis. Mild atherosclerotic plaque at the bifurcations. 2. Atherosclerotic plaque in the intracranial carotid arteries through the cavernous sinuses. Less than 50% stenosis. 3. No flow-limiting stenosis or thrombus in the [place]. 4. Dominant LEFT vertebral artery. Both vertebral arteries are patent. - NIH stroke scale 1-2 - Currently it is show scale 0 - Confounding factors acute anemia, hyponatremia, leukocytosis - Not a tPA candidate given acute anemia, soft tissue hematoma - Spoke with neurology - No evidence of embolic event, or large vessel occlusion -But does have A-fib with RVR Plan -Aspirin - Statin - Monitor hemoglobin closely - Transfused 3 units PRBC - Will consider Lovenox based on clinical progress, hemoglobin trend - PT OT, speech therapy eval - Neurochecks - NIH stroke scale Hematoma Mild degenerative joint space narrowing involving the RIGHT hip. Enthesopathy at the greater trochanter, likely within the gluteus medius tendon. No fracture or displacement is identified. RIGHT superior and inferior pubic rami are intact. There is a soft tissue hematoma centered just posterior to the hip measuring at least 10.2 x 6.8 cm. There is additional soft tissue infiltration in the subcutaneous fat. The actual size of the hematoma is difficult to determine due to its extensive nature infiltrating in the muscles. There is a well-circumscribed avulsion fracture near the RIGHT ischial tuberosity which was present on 11/22/2022. ct abdomen IMPRESSION: 1. Large right gluteal hyperdense lesion measuring 4.1 x 7.9 x 10.7 cm. It has medial component extending to the right piriformis muscle. Finding could represent a intramuscular hematoma. Clinical correlation is advised. Plan -Transfused 3 units PRBC -Hold blood thinners such as Lovenox - Pain control - Monitor closely - Monitor DP PT pulses - Continue broad-spectrum antibiotic therapy - Monitor for compartment syndrome CT chest CT/[place] [id number] IMPRESSION: 1. Age-indeterminate T12 compression deformity. Clinical correlation is advised. If indicated, MRI can be obtained to exclude acute compression fracture. 2. Coronary calcifications. 3. Mild calcified atherosclerotic changes are seen in the thoracic aorta. - Denies any back pain complaints Acute Anemia Hgb 8.5 Likely secondary to soft tissue hematoma as above Plan -Transfused 3 unit PRBC - Monitor hemoglobin thereafter Hyponatremia, resolving Serum Sodium 124-127, now 131 Component of pseudohyponatremia Component of diuretic therapy Component of poor oral intake Plan - Monitor serum sodium every 6 hours - Monitor mentation Leukocytosis? - Etiology unclear, could be from hematoma - Urinalysis WNL - CRP 144, Pro-Varghese 0.21 - Vancomycin, Zosyn - Follow blood cultures Rhabdomyolysis, 4222 - IV fluids, monitor for fluid overload, received 3 units PRBC - Monitor closely - Is receiving a unit of PRBC Hyperbilirubinemia, likely sec to hematoma Diabetic foot infection, left foot -History of left great toe osteomyelitis, -History of hardware infection, status post removal -Wound cultures growing Pseudomonas Plan - Status post surgical intervention by - Follow blood cultures - Atrial fibrillation with rapid ventricular response - transition to po amiodarone -Therapeutic Lovenox, currently on hold Low TSH, concerns for hyperthyroidism - Recheck TSH 0.02, T3 2.5, T4 1.89 US/US thyroid 52878 IMPRESSION: Normal thyroid ultrasound. Fall, -No reported head trauma, no loss of consciousness - CT head within normal limits Type 2 diabetes mellitus, low-dose sliding scale Full code Lovenox for DVT prophylaxis currently on hold, SCDs Plan for today transfuse 1 unit PRBC monitor mentation, PT OT, monitor serum sodium, CT chest abdomen pelvis repeat CT head 02/02/2025 Blood cultures negative to date. Patient is status post amputation left great toe secondary to osteomyelitis. Weightbearing as tolerated. PT dispensed postop shoe left foot. Elevate foot while resting. Surgical dressing to be changed today. She has been lethargic overnight. Concern by nursing staff for sedation secondary to medications. We have cut down Zyprexa to 2.5 twice daily and reduce Seroquel to 50 daily. If needed we may go up on Seroquel. Discussed this with family. Stop IR oxycodone and IV morphine. Will switch to hydrocodone 2.5 every 8 hours as needed. She did get one-time dose of hydrocodone 5 however patient very sleepy after that. She seems to be quite sensitive to opioid. Rhabdomyolysis?creatinine kinase decreasing and trending down slowly. Monitor for fluid overload. Patient is status post 3 unit packed RBCs. Is on room air laying in bed. Family states she has been confused. She is alert oriented x 3 however she has made comments that she has been to [facility] however has never been there before. Family also states that patient stated that she is upset that she was sent home on a After her knee surgeries which is also not true. They question her mental capacity at this time. Patient possibly has some hospital-acquired delirium. We will continue to monitor at this time. Will switch to Zyprexa 2.5 twice daily. Serum sodium 129. Check urine sodium Consult nephrology. Continue PT OT. Patient able to walk with a wheeled walker at baseline. She is unable to bear weight on right leg secondary to hematoma. Requires continued hospitalization at this time for pain control and monitoring of hemoglobin. Patient does have a history of atrial fibrillation and was on 325 aspirin at home. We will continue to hold that at this time. Continue Vanco and Zosyn. 02/03/2025 Continue Zyprexa 2.5 twice daily Serum sodium 131 this morning Potassium 3.4 Continues to have downward trend with a hemoglobin. 7.2 this morning. Ordered 1 more unit of blood today. Patient will be status post 4 units after this unit. We will check CT pelvis and CT femur. Discussed with radiology. Will do delayed imaging to rule out active bleed. If active bleeding identified may consider as per the higher level of care for IR. There does not seem to be any evidence of compartment syndrome at this time however will wait for CT scan. Will consider general surgery consultation. I will order TXA x 1. Continue hydrocodone 2.5 every 8 hours as needed. Continue reduced dose of Seroquel. I will reduce further to 25 at bedtime. Will complete antibiotics for 7 days total. Last dose February 05. Discussed with Dr. Ahuja over the phone. Margins very clean after amputation which will be considered curative. No need of oral antibiotics at discharge. White count 12,000 today. Possibly reactive. Creatinine kinase trending down. Continue to monitor in ICU setting. Mental status improved today. She is alert oriented x 3. PDMP PDMP Reviewed: Not Reviewed Attestations 2 Medical Necessity Statement*: Requiring blood transfusion. Continue to monitor in hospital setting for intramuscular hematoma. Diagnoses Diabetic peripheral neuropathy associated with type 2 diabetes mellitus E11.42 Cellulitis of left foot L03.116 Osteomyelitis of great toe of left foot M86.9 Atrial fibrillation with rapid ventricular response I48.91 Diabetic foot infection E11.628; L08.9 Fall W19.XXXA Acute anemia D64.9 Hematoma T14.8XXA Acute CVA (cerebrovascular accident) I63.9
[2025-02-03] MEDS: lactulose oral liq 20 gm/30 mL UDC PO (17:14)
[2025-02-03] MEDS: sennosides-docusate Tablet 1 TAB PO (17:39)
[2025-02-03] MEDS: HYDROcodone-acetaminophen 5-325 mg Tablet 0.5 TAB PO (20:00)
[2025-02-04] VITALS (25 sets, daily range): BP systolic 122–170; BP diastolic 54–111; PULSE 67–106; RESP 13–25; TEMP 36.8–37.1; O2SAT 93–100
[2025-02-04] MEDS: piperacillin-tazobactam 3.375 GM in sodium chloride 0.9% (plus) 50 ML IV ×3 (00:29→17:48)
[2025-02-04 04:05] LABS: Hematocrit 27.1 % (36-47); Hemoglobin 8.70 g/dL (11.27-16.99); Mean Corpuscular HGB Conc 32.1 g/dL (30-55); Mean Corpuscular Hemoglobin 28.9 pg (27-33); Mean Corpuscular Volume 90.0 fl (85-98); Nucleated Red Blood Cells % 0 %; Platelet Count 351 10^3/cmm (157-399); Red Blood Count 3.01 10^6/uL (3.85-5.65); White Blood Count 11.75 10^3/uL (3.29-11.43)
[2025-02-04 04:39] LABS: Alanine Aminotransferase 101 U/L (0-33); Albumin Level 2.9 g/dL (3.5-5.2); Alkaline Phosphatase 186 U/L (35-105); Anion Gap 14.5 (5-19); Aspartate Amino Transferase 62 U/L (0-32); Blood Urea Nitrogen 8 mg/dL (8-23); Calcium 8.4 mg/dL (8.5-10.5); Carbon Dioxide 27 mmol/L (22-29); Chloride 103 mmol/L (98-107); Creatinine Clr Calc Pharmacy 74.3543; Globulin 3.1 g/dL (1.3-4.6); Glucose 150 mg/dL (65-115); Osmolality Calculated 293 mOsm/kg (285-295); Potassium 3.5 mmol/L (3.5-5.1); Sodium 141 mmol/L (136-145); Total Protein 6.0 g/dL (6.6-8.7)
[2025-02-04] MEDS: pantoprazole 40 mg SDV IVP ×2 (05:02→17:49)
[2025-02-04] MEDS: ATORVASTATIN 10 MG TABLET 20 MG PO (08:15)
[2025-02-04] MEDS: sennosides-docusate Tablet 1 TAB PO ×2 (08:15→17:48)
--- NOTE | 2025-02-04 09:04 | P.PN_ITS ---
Subjective 2 Subjective: Patient feeling better more awake and alert. Patient like does not hurt. Medications: Reviewed: Yes Medication Review Details: Current Medications Acetaminophen (Acetaminophen 325 Mg Tablet) 650 mg PO Q6H PRN PRN Reason: Mild/Mod Pain Or Temp >/= 101 Last Admin: 01/28/25 05:06 Dose: 650 mg Hydrocodone Bitart/Acetaminophen (Hydrocodone-Acetaminophen 5-325 Mg Tablet) 0.5 tab PO Q8H PRN PRN Reason: MODERATE PAIN Last Admin: 02/03/25 20:00 Dose: 0.5 tab Amiodarone HCl (Amiodarone 200 Mg Tablet) 400 mg PO BID [facility] Last Admin: 02/04/25 08:15 Dose: 400 mg Aspirin (Aspirin 81 Mg Ec Tablet) 81 mg PO DAILY [facility] Last Admin: 02/04/25 08:15 Dose: 81 mg Atorvastatin Calcium (Atorvastatin 10 Mg Tablet) 20 mg PO DAILY [facility] Last Admin: 02/04/25 08:15 Dose: 20 mg Duloxetine HCl (Duloxetine 60 Mg Capsule) 120 mg PO QAM [facility] Last Admin: 02/04/25 05:10 Dose: 120 mg Fluoxetine HCl (Fluoxetine 20 Mg Capsule) 20 mg PO QAM [facility] Last Admin: 02/04/25 05:10 Dose: 20 mg Gabapentin (Gabapentin 100 Mg Capsule) 100 mg PO BID [facility] Last Admin: 02/04/25 08:15 Dose: 100 mg Glucagon (Glucagon 1 Mg/Ml Kit 1 Ml) 1 mg IM ONCE PRN; Protocol PRN Reason: Adult Acute Hypoglycemia Nursing Prot. Dextrose (D5w) 500 mls @ 0 mls/hr IV ONCE PRN; Protocol PRN Reason: Adult Acute Hypoglycemia Prot Dextrose (D10w) 125 mls @ 750 mls/hr IV PRN PRN; Protocol PRN Reason: Adult Acute Hypoglycemia Nursing Protocol Dextrose (D10w) 250 mls @ 1,000 mls/hr IV PRN PRN; Protocol PRN Reason: Adult Acute Hypoglycemia Nursing Protocol Piperacillin Sod/Tazobactam (Sod 3.375 gm/ Sodium Chloride) 50 mls @ 12.5 mls/hr IV Q8H [facility] Last Admin: 02/04/25 08:14 Dose: 12.5 mls/hr Vancomycin HCl (Vancocin) 1,250 mg in 250 mls @ 166.667 mls/hr IV Q12H [facility] Last Admin: 02/04/25 08:14 Dose: 166.67 mls/hr Insulin Human Lispro (Insulin Lispro 100 Unit/1 Ml) 0 unit SUBCUT TIDWM [facility]; Protocol Last Admin: 02/04/25 08:15 Dose: 4 unit Lamotrigine (Lamotrigine 100 Mg Tablet) 200 mg PO BID [facility] Last Admin: 02/04/25 08:15 Dose: 200 mg Levothyroxine Sodium (Levothyroxine 200 Mcg Tablet) 200 mcg PO .DAILY@10AM [facility] Olanzapine (Olanzapine 5 Mg Tablet) 2.5 mg PO BID [facility] Last Admin: 02/04/25 08:15 Dose: 2.5 mg Ondansetron HCl (Ondansetron 2 Mg/Ml Sdv 2 Ml) 4 mg IVP Q8H PRN PRN Reason: vomiting, or N/V if npo Pantoprazole Sodium (Pantoprazole 40 Mg Sdv) 40 mg IVP Q12H [facility] Last Admin: 02/04/25 05:02 Dose: 40 mg Quetiapine Fumarate (Quetiapine 25 Mg Tablet) 25 mg PO BEDTIME [facility] Last Admin: 02/03/25 20:00 Dose: 25 mg Senna/Docusate Sodium (Sennosides-Docusate Tablet) 1 tab PO BID [facility] Last Admin: 02/04/25 08:15 Dose: 1 tab Sucralfate (Sucralfate 1 Gm Tablet) 1 gm PO BID [facility] Last Admin: 02/04/25 08:15 Dose: 1 gm Vitals/I&O/Wt Last Vital Signs Temp 98.2 F 02/04/25 07:00 Pulse 75 02/04/25 07:00 Resp 17 02/04/25 07:00 BP 157/79 02/04/25 07:00 Pulse Ox 97 02/04/25 07:00 O2 Del Method Room Air 02/04/25 07:00 O2 Flow Rate 6 01/27/25 12:55 02/03/25 02/04/25 02/04/25 22:59 06:59 14:59 Intake Total 930 / 2080 50 / 2130 Output Total 875 / 875 850 / 1725 Balance 55 / 1205 -800 / 405 Weight last 48 hrs Weight 92.17 kg Weight 91 kg Physical Exam 2 Narrative: Vital signs noted. The patient sitting up no apparent distress. HEENT normocephalic atraumatic. Neck is supple no JVD Lungs are clear. Heart is a regular. Abdomen is soft positive bowel sounds. Extremities left great toe amputation. No edema Neuro awake alert oriented x 3 moving all extremities. Patient seen and examined with aid of a nurse using audiovisual equipment. Urinary Catheter Management: Wyatt: Cath Placed During This Visit: yes Reason for Continuing Indwelling Catheter: Accurate Measurement of Urinary Output in Critically Ill Patients Urinary Catheter Date of Insertion: 01/30/25 Urinary Catheter Time of Insertion: 18:14 Data 02/04/25 03:56 02/04/25 03:56 Micro: Microbiology 01/30/25 08:00 Blood Culture - Final Blood NO GROWTH AFTER 5 DAYS 01/30/25 07:49 Blood Culture - Final Blood NO GROWTH AFTER 5 DAYS A&P Assessment and plan 1. Rhabdomyolysis: 69-year-old lady history of diabetes, hypertension hyperlipidemia CVA/TIA. Patient was admitted with left great toe cellulitis. Status post left great toe amputation. 1. Hyponatremia has improved. Monitor. 2. Rhabdomyolysis. CPK was 4222. Has improved to 752. Monitor on IV fluids. Risk factors include osteomyelitis and SSRIs 3. Osteomyelitis of great toe of left foot status post amputation. 4. A-fib 5. Hypokalemia. Replace potassium. 6. Anemia status post blood transfusion seen and examined w/ nurse using A/V equipment pt consents to telehealth Plan: see above PDMP PDMP Reviewed: Not Reviewed Attestations 2 Medical Necessity Statement*: per medicine Time Spent in Patient Care: 16 - 35 minutes (>than 50% of time sp ent in counselling and/or direct pt care on unit) . Coding Level of Care Code Acute Code for [facility] Diagnoses Rhabdomyolysis M62.82
--- NOTE | 2025-02-04 09:48 | PC.SOCIAL ---
IMM Update pg 2 of IMM Updated and reviewed w/ patient. Copy provided and copy dated, initialed and placed in chart.
[2025-02-04 10:14] LABS: Glucose Urine UA Negative (Normal); Nitrate Urine Negative (Negative); Specific Gravity, Urine 1.021 (1.005-1.030)
[2025-02-04 10:26] LABS: Potassium, Radom Urine 20 mmol/L; Urine Random Chloride 36 mmol/L; Urine Random Sodium 61 mmol/L
[2025-02-04 10:27] LABS: UA Slide Review UA Slide Review Perf
--- NOTE | 2025-02-04 11:03 | P.PN_ITS ---
Subjective 2 Subjective: seen today pt s/p 1 unit rbc yesterday hb 8.7 this am says leg hurts but slightly better than yesterday says will be signing a DPOA today AO x4 Vitals/I&O/Wt Last Vital Signs Temp 98.2 F 02/04/25 07:00 Pulse 75 02/04/25 07:00 Resp 17 02/04/25 07:00 BP 157/79 02/04/25 07:00 Pulse Ox 97 02/04/25 07:00 O2 Del Method Room Air 02/04/25 07:00 O2 Flow Rate 6 01/27/25 12:55 02/03/25 02/04/25 02/04/25 22:59 06:59 14:59 Intake Total 930 / 2080 50 / 2130 Output Total 875 / 875 850 / 1725 Balance 55 / 1205 -800 / 405 Weight last 48 hrs Weight 92.17 kg Weight 91 kg Physical Exam 2 Const: COMMON NORMALS: no acute distress and patient oriented x3 Resp: COMMON NORMALS: normal respiratory effort, No retractions, No use of accessory muscles and clear to auscultation bilaterally AUSCULTATION: clear to auscultation bilaterally Cardio: COMMON NORMALS: regular rate, regular rhythm, S1 normal heart sound present and S2 normal heart sound present RATE: regular rate RHYTHM: r egular rhythm HEART SOUNDS: S1 normal heart sound present and S2 normal heart sound present GI: COMMON NORMALS: Normal to inspection, nondistended, normoactive bowel sounds present and non-tender Extremity: COMMON NORMALS: no calf tenderness NARRATIVE EXTREMITY EXAM: Left foot is wrapped Right thigh, no overlying skin changes, swollen, no erythema, diffusely tender, no warmth, right thigh taut. Right gluteus, no overlying skin changes, swollen, no erythema Right DP PT pulses palpable Neuro: COMMON NORMALS: patient oriented x3, CN's II-XII intact bilaterally, moves all extremities, no focal motor deficits and no sensory deficits noted Psych: COMMON NORMALS: mental status grossly normal Urinary Catheter Management: Wyatt: Cath Placed During This Visit: yes Reason for Continuing Indwelling Catheter: Accurate Measurement of Urinary Output in Critically Ill Patients Urinary Catheter Date of Insertion: 01/30/25 Urinary Catheter Time of Insertion: 18:14 Data 02/04/25 03:56 02/04/25 03:56 Micro: Microbiology 01/30/25 08:00 Blood Culture - Final Blood NO GROWTH AFTER 5 DAYS 01/30/25 07:49 Blood Culture - Final Blood NO GROWTH AFTER 5 DAYS A&P Assessment and plan 1. Diabetic peripheral neuropathy associated with type 2 diabetes mellitus: 2. Cellulitis of left foot: Resolved 3. Osteomyelitis of great toe of left foot: 4. Atrial fibrillation with rapid ventricular response: 5. Diabetic foot infection: 6. Fall: 7. Acute anemia: 8. Hematoma: 9. Acute CVA (cerebrovascular accident): Plan: Acute CVA vs TIA Head CT CT/CT head wo con* [id number] IMPRESSION: 1. No acute intracranial hemorrhage or edema. 2. No acute area of sulcal effacement. 3. Mild atrophy and small vessel disease. CTA head and neck CT/CT angio headneck* [id number] IMPRESSION: 1. No significant cervical carotid artery stenosis. Mild atherosclerotic plaque at the bifurcations. 2. Atherosclerotic plaque in the intracranial carotid arteries through the cavernous sinuses. Less than 50% stenosis. 3. No flow-limiting stenosis or thrombus in the [place]. 4. Dominant LEFT vertebral artery. Both vertebral arteries are patent. - NIH stroke scale 1-2 - Currently it is show scale 0 - Confounding factors acute anemia, hyponatremia, leukocytosis - Not a tPA candidate given acute anemia, soft tissue hematoma - Spoke with neurology - No evidence of embolic event, or large vessel occlusion -But does have A-fib with RVR Plan -Aspirin - Statin - Monitor hemoglobin closely - Transfused 3 units PRBC - Will consider Lovenox based on clinical progress, hemoglobin trend - PT OT, speech therapy eval - Neurochecks - NIH stroke scale Hematoma Mild degenerative joint space narrowing involving the RIGHT hip. Enthesopathy at the greater trochanter, likely within the gluteus medius tendon. No fracture or displacement is identified. RIGHT superior and inferior pubic rami are intact. There is a soft tissue hematoma centered just posterior to the hip measuring at least 10.2 x 6.8 cm. There is additional soft tissue infiltration in the subcutaneous fat. The actual size of the hematoma is difficult to determine due to its extensive nature infiltrating in the muscles. There is a well-circumscribed avulsion fracture near the RIGHT ischial tuberosity which was present on 11/22/2022. ct abdomen IMPRESSION: 1. Large right gluteal hyperdense lesion measuring 4.1 x 7.9 x 10.7 cm. It has medial component extending to the right piriformis muscle. Finding could represent a intramuscular hematoma. Clinical correlation is advised. Plan -Transfused 3 units PRBC -Hold blood thinners such as Lovenox - Pain control - Monitor closely - Monitor DP PT pulses - Continue broad-spectrum antibiotic therapy - Monitor for compartment syndrome CT chest CT/[place] [id number] IMPRESSION: 1. Age-indeterminate T12 compression deformity. Clinical correlation is advised. If indicated, MRI can be obtained to exclude acute compression fracture. 2. Coronary calcifications. 3. Mild calcified atherosclerotic changes are seen in the thoracic aorta. - Denies any back pain complaints Acute Anemia Hgb 8.5 Likely secondary to soft tissue hematoma as above Plan -Transfused 3 unit PRBC - Monitor hemoglobin thereafter Hyponatremia, resolving Serum Sodium 124-127, now 131 Component of pseudohyponatremia Component of diuretic therapy Component of poor oral intake Plan - Monitor serum sodium every 6 hours - Monitor mentation Leukocytosis? - Etiology unclear, could be from hematoma - Urinalysis WNL - CRP 144, Pro-Varghese 0.21 - Vancomycin, Zosyn - Follow blood cultures Rhabdomyolysis, 4222 - IV fluids, monitor for fluid overload, received 3 units PRBC - Monitor closely - Is receiving a unit of PRBC Hyperbilirubinemia, likely sec to hematoma Diabetic foot infection, left foot -History of left great toe osteomyelitis, -History of hardware infection, status post removal -Wound cultures growing Pseudomonas Plan - Status post surgical intervention by - Follow blood cultures - Atrial fibrillation with rapid ventricular response - transition to po amiodarone -Therapeutic Lovenox, currently on hold Low TSH, concerns for hyperthyroidism - Recheck TSH 0.02, T3 2.5, T4 1.89 US/US thyroid 92297 IMPRESSION: Normal thyroid ultrasound. Fall, -No reported head trauma, no loss of consciousness - CT head within normal limits Type 2 diabetes mellitus, low-dose sliding scale Full code Lovenox for DVT prophylaxis currently on hold, SCDs Plan for today transfuse 1 unit PRBC monitor mentation, PT OT, monitor serum sodium, CT chest abdomen pelvis repeat CT head 02/02/2025 Blood cultures negative to date. Patient is status post amputation left great toe secondary to osteomyelitis. Weightbearing as tolerated. PT dispensed postop shoe left foot. Elevate foot while resting. Surgical dressing to be changed today. She has been lethargic overnight. Concern by nursing staff for sedation secondary to medications. We have cut down Zyprexa to 2.5 twice daily and reduce Seroquel to 50 daily. If needed we may go up on Seroquel. Discussed this with family. Stop IR oxycodone and IV morphine. Will switch to hydrocodone 2.5 every 8 hours as needed. She did get one-time dose of hydrocodone 5 however patient very sleepy after that. She seems to be quite sensitive to opioid. Rhabdomyolysis?creatinine kinase decreasing and trending down slowly. Monitor for fluid overload. Patient is status post 3 unit packed RBCs. Is on room air laying in bed. Family states she has been confused. She is alert oriented x 3 however she has made comments that she has been to [facility] however has never been there before. Family also states that patient stated that she is upset that she was sent home on a After her knee surgeries which is also not true. They question her mental capacity at this time. Patient possibly has some hospital-acquired delirium. We will continue to monitor at this time. Will switch to Zyprexa 2.5 twice daily. Serum sodium 129. Check urine sodium Consult nephrology. Continue PT OT. Patient able to walk with a wheeled walker at baseline. She is unable to bear weight on right leg secondary to hematoma. Requires continued hospitalization at this time for pain control and monitoring of hemoglobin. Patient does have a history of atrial fibrillation and was on 325 aspirin at home. We will continue to hold that at this time. Continue Vanco and Zosyn. 02/03/2025 Continue Zyprexa 2.5 twice daily Serum sodium 131 this morning Potassium 3.4 Continues to have downward trend with a hemoglobin. 7.2 this morning. Ordered 1 more unit of blood today. Patient will be status post 4 units after this unit. We will check CT pelvis and CT femur. Discussed with radiology. Will do delayed imaging to rule out active bleed. If active bleeding identified may consider as per the higher level of care for IR. There does not seem to be any evidence of compartment syndrome at this time however will wait for CT scan. Will consider general surgery consultation. I will order TXA x 1. Continue hydrocodone 2.5 every 8 hours as needed. Continue reduced dose of Seroquel. I will reduce further to 25 at bedtime. Will complete antibiotics for 7 days total. Last dose February 05. Discussed with Dr. Ahuja over the phone. Margins very clean after amputation which will be considered curative. No need of oral antibiotics at discharge. White count 12,000 today. Possibly reactive. Creatinine kinase trending down. Continue to monitor in ICU setting. Mental status improved today. She is alert oriented x 3. 02/04/2025 seen this am hb 8.7 today sodium improved, now normal pt s/p total [address] pelvis and femur reviewed, no active bleed identified, see radiology report TXA was not given due to no active bleed wbc count 11.75, improving stop abx at 7 days total, last dose in am february 05 ck trending down if hb remains stable for 48 hours s/p transfusion, will consider dc to SNF no abx needed at time of dc will need repeat cbc outpatient follow up with PCP [facility] to [facility] PDMP PDMP Reviewed: Not Reviewed Attestations 2 Medical Necessity Statement*: continue to monitor hb Diagnoses Diabetic peripheral neuropathy associated with type 2 diabetes mellitus E11.42 Cellulitis of left foot L03.116 Osteomyelitis of great toe of left foot M86.9 Atrial fibrillation with rapid ventricular response I48.91 Diabetic foot infection E11.628; L08.9 Fall W19.XXXA Acute anemia D64.9 Hematoma T14.8XXA Acute CVA (cerebrovascular accident) I63.9
[2025-02-05] VITALS (27 sets, daily range): BP systolic 136–180; BP diastolic 55–119; PULSE 68–122; RESP 14–27; TEMP 36.6–37.1; O2SAT 92–99
[2025-02-05] MEDS: piperacillin-tazobactam 3.375 GM in sodium chloride 0.9% (plus) 50 ML IV ×3 (00:25→17:20)
[2025-02-05] MEDS: pantoprazole 40 mg SDV IVP ×2 (05:00→17:20)
[2025-02-05 06:03] LABS: Alanine Aminotransferase 78 U/L (0-33); Albumin Level 2.9 g/dL (3.5-5.2); Alkaline Phosphatase 183 U/L (35-105); Anion Gap 14.4 (5-19); Aspartate Amino Transferase 29 U/L (0-32); Blood Urea Nitrogen 7 mg/dL (8-23); Calcium 8.2 mg/dL (8.5-10.5); Carbon Dioxide 26 mmol/L (22-29); Chloride 103 mmol/L (98-107); Creatinine Clr Calc Pharmacy 74.8378; Globulin 3.4 g/dL (1.3-4.6); Glucose 160 mg/dL (65-115); Magnesium 1.9 mg/dL (1.7-2.3); Osmolality Calculated 291 mOsm/kg (285-295); Potassium 3.4 mmol/L (3.5-5.1); Sodium 140 mmol/L (136-145); Total Protein 6.3 g/dL (6.6-8.7)
[2025-02-05 07:30] LABS: Hematocrit 28.1 % (36-47); Hemoglobin 8.90 g/dL (11.27-16.99); Mean Corpuscular HGB Conc 31.7 g/dL (30-55); Mean Corpuscular Hemoglobin 28.8 pg (27-33); Mean Corpuscular Volume 90.9 fl (85-98); Nucleated Red Blood Cells % 0 %; Platelet Count 411 10^3/cmm (157-399); Red Blood Count 3.09 10^6/uL (3.85-5.65); White Blood Count 11.78 10^3/uL (3.29-11.43)
[2025-02-05] MEDS: sennosides-docusate Tablet 1 TAB PO ×2 (08:25→17:21)
[2025-02-05] MEDS: ATORVASTATIN 10 MG TABLET 20 MG PO (08:26)
--- NOTE | 2025-02-05 11:13 | P.PN_ITS ---
Subjective 2 Subjective: seen this morning hb 8.9 at this time K 3.4 patient awake, alert feeling a lot better earlier worked with speech therapy as well Vitals/I&O/Wt Last Vital Signs Temp 98.5 F 02/05/25 10:00 Pulse 77 02/05/25 10:00 Resp 19 H 02/05/25 10:00 BP 143/69 02/05/25 10:00 Pulse Ox 97 02/05/25 10:00 O2 Del Method Room Air 02/05/25 10:00 O2 Flow Rate 6 01/27/25 12:55 02/04/25 02/05/25 02/05/25 22:59 06:59 14:59 Intake Total 770 / 1460 1100 / 2560 Output Total 1050 / 1050 1350 / 2400 Balance -280 / 410 -250 / 160 Weight last 48 hrs Weight 93.5 kg Weight 92.17 kg Physical Exam 2 Const: COMMON NORMALS: no acute distress and patient oriented x3 Resp: COMMON NORMALS: normal respiratory effort, No retractions, No use of accessory muscles and clear to auscultation bilaterally AUSCULTATION: clear to auscultation bilaterally Cardio: COMMON NORMALS: regular rate, regular rhythm, S1 normal heart sound present and S2 normal heart sound present RATE: regular rate RHYTHM: r egular rhythm HEART SOUNDS: S1 normal heart sound present and S2 normal heart sound present GI: COMMON NORMALS: Normal to inspection, nondistended, normoactive bowel sounds present and non-tender Extremity: COMMON NORMALS: no calf tenderness NARRATIVE EXTREMITY EXAM: Left foot is wrapped Right thigh, no overlying skin changes, swollen however improving slightly Right gluteus, no overlying skin changes, swollen, no erythema Right DP PT pulses palpable Neuro: COMMON NORMALS: patient oriented x3, CN's II-XII intact bilaterally, moves all extremities, no focal motor deficits and no sensory deficits noted Psych: COMMON NORMALS: mental status grossly normal Urinary Catheter Management: Wyatt: Cath Placed During This Visit: yes Reason for Continuing Indwelling Catheter: Accurate Measurement of Urinary Output in Critically Ill Patients Urinary Catheter Date of Insertion: 01/30/25 Urinary Catheter Time of Insertion: 18:14 Data 02/05/25 05:11 02/05/25 05:11 Micro: Microbiology 01/30/25 08:00 Blood Culture - Final Blood NO GROWTH AFTER 5 DAYS 01/30/25 07:49 Blood Culture - Final Blood NO GROWTH AFTER 5 DAYS A&P Assessment and plan 1. Diabetic peripheral neuropathy associated with type 2 diabetes mellitus: 2. Cellulitis of left foot: Resolved 3. Osteomyelitis of great toe of left foot: 4. Atrial fibrillation with rapid ventricular response: 5. Diabetic foot infection: 6. Fall: 7. Acute anemia: 8. Hematoma: 9. Acute CVA (cerebrovascular accident): Plan: Acute CVA vs TIA Head CT CT/CT head wo con* [id number] IMPRESSION: 1. No acute intracranial hemorrhage or edema. 2. No acute area of sulcal effacement. 3. Mild atrophy and small vessel disease. CTA head and neck CT/CT angio headneck* [id number] IMPRESSION: 1. No significant cervical carotid artery stenosis. Mild atherosclerotic plaque at the bifurcations. 2. Atherosclerotic plaque in the intracranial carotid arteries through the cavernous sinuses. Less than 50% stenosis. 3. No flow-limiting stenosis or thrombus in the [place]. 4. Dominant LEFT vertebral artery. Both vertebral arteries are patent. - NIH stroke scale 1-2 - Currently it is show scale 0 - Confounding factors acute anemia, hyponatremia, leukocytosis - Not a tPA candidate given acute anemia, soft tissue hematoma - Spoke with neurology - No evidence of embolic event, or large vessel occlusion -But does have A-fib with RVR Plan -Aspirin - Statin - Monitor hemoglobin closely - Transfused 3 units PRBC - Will consider Lovenox based on clinical progress, hemoglobin trend - PT OT, speech therapy eval - Neurochecks - NIH stroke scale Hematoma Mild degenerative joint space narrowing involving the RIGHT hip. Enthesopathy at the greater trochanter, likely within the gluteus medius tendon. No fracture or displacement is identified. RIGHT superior and inferior pubic rami are intact. There is a soft tissue hematoma centered just posterior to the hip measuring at least 10.2 x 6.8 cm. There is additional soft tissue infiltration in the subcutaneous fat. The actual size of the hematoma is difficult to determine due to its extensive nature infiltrating in the muscles. There is a well-circumscribed avulsion fracture near the RIGHT ischial tuberosity which was present on 11/22/2022. ct abdomen IMPRESSION: 1. Large right gluteal hyperdense lesion measuring 4.1 x 7.9 x 10.7 cm. It has medial component extending to the right piriformis muscle. Finding could represent a intramuscular hematoma. Clinical correlation is advised. Plan -Transfused 3 units PRBC -Hold blood thinners such as Lovenox - Pain control - Monitor closely - Monitor DP PT pulses - Continue broad-spectrum antibiotic therapy - Monitor for compartment syndrome CT chest CT/[place] [id number] IMPRESSION: 1. Age-indeterminate T12 compression deformity. Clinical correlation is advised. If indicated, MRI can be obtained to exclude acute compression fracture. 2. Coronary calcifications. 3. Mild calcified atherosclerotic changes are seen in the thoracic aorta. - Denies any back pain complaints Acute Anemia Hgb 8.5 Likely secondary to soft tissue hematoma as above Plan -Transfused 3 unit PRBC - Monitor hemoglobin thereafter Hyponatremia, resolving Serum Sodium 124-127, now 131 Component of pseudohyponatremia Component of diuretic therapy Component of poor oral intake Plan - Monitor serum sodium every 6 hours - Monitor mentation Leukocytosis? - Etiology unclear, could be from hematoma - Urinalysis WNL - CRP 144, Pro-Varghese 0.21 - Vancomycin, Zosyn - Follow blood cultures Rhabdomyolysis, 4222 - IV fluids, monitor for fluid overload, received 3 units PRBC - Monitor closely - Is receiving a unit of PRBC Hyperbilirubinemia, likely sec to hematoma Diabetic foot infection, left foot -History of left great toe osteomyelitis, -History of hardware infection, status post removal -Wound cultures growing Pseudomonas Plan - Status post surgical intervention by - Follow blood cultures - Atrial fibrillation with rapid ventricular response - transition to po amiodarone -Therapeutic Lovenox, currently on hold Low TSH, concerns for hyperthyroidism - Recheck TSH 0.02, T3 2.5, T4 1.89 US/US thyroid [id number] IMPRESSION: Normal thyroid ultrasound. Fall, -No reported head trauma, no loss of consciousness - CT head within normal limits Type 2 diabetes mellitus, low-dose sliding scale Full code Lovenox for DVT prophylaxis currently on hold, SCDs Plan for today transfuse 1 unit PRBC monitor mentation, PT OT, monitor serum sodium, CT chest abdomen pelvis repeat CT head 02/02/2025 Blood cultures negative to date. Patient is status post amputation left great toe secondary to osteomyelitis. Weightbearing as tolerated. PT dispensed postop shoe left foot. Elevate foot while resting. Surgical dressing to be changed today. She has been lethargic overnight. Concern by nursing staff for sedation secondary to medications. We have cut down Zyprexa to 2.5 twice daily and reduce Seroquel to 50 daily. If needed we may go up on Seroquel. Discussed this with family. Stop IR oxycodone and IV morphine. Will switch to hydrocodone 2.5 every 8 hours as needed. She did get one-time dose of hydrocodone 5 however patient very sleepy after that. She seems to be quite sensitive to opioid. Rhabdomyolysis?creatinine kinase decreasing and trending down slowly. Monitor for fluid overload. Patient is status post 3 unit packed RBCs. Is on room air laying in bed. Family states she has been confused. She is alert oriented x 3 however she has made comments that she has been to [facility] however has never been there before. Family also states that patient stated that she is upset that she was sent home on a After her knee surgeries which is also not true. They question her mental capacity at this time. Patient possibly has some hospital-acquired delirium. We will continue to monitor at this time. Will switch to Zyprexa 2.5 twice daily. Serum sodium 129. Check urine sodium Consult nephrology. Continue PT OT. Patient able to walk with a wheeled walker at baseline. She is unable to bear weight on right leg secondary to hematoma. Requires continued hospitalization at this time for pain control and monitoring of hemoglobin. Patient does have a history of atrial fibrillation and was on 325 aspirin at home. We will continue to hold that at this time. Continue Vanco and Zosyn. 02/03/2025 Continue Zyprexa 2.5 twice daily Serum sodium 131 this morning Potassium 3.4 Continues to have downward trend with a hemoglobin. 7.2 this morning. Ordered 1 more unit of blood today. Patient will be status post 4 units after this unit. We will check CT pelvis and CT femur. Discussed with radiology. Will do delayed imaging to rule out active bleed. If active bleeding identified may consider as per the higher level of care for IR. There does not seem to be any evidence of compartment syndrome at this time however will wait for CT scan. Will consider general surgery consultation. I will order TXA x 1. Continue hydrocodone 2.5 every 8 hours as needed. Continue reduced dose of Seroquel. I will reduce further to 25 at bedtime. Will complete antibiotics for 7 days total. Last dose February 05. Discussed with Dr. Ahuja over the phone. Margins very clean after amputation which will be considered curative. No need of oral antibiotics at discharge. White count 12,000 today. Possibly reactive. Creatinine kinase trending down. Continue to monitor in ICU setting. Mental status improved today. She is alert oriented x 3. 02/04/2025 seen this am hb 8.7 today sodium improved, now normal pt s/p total [address] pelvis and femur reviewed, no active bleed identified, see radiology report TXA was not given due to no active bleed wbc count 11.75, improving stop abx at 7 days total, last dose in am february 05 ck trending down if hb remains stable for 48 hours s/p transfusion, will consider dc to SNF no abx needed at time of dc will need repeat cbc outpatient follow up with PCP [facility] to [facility] 02/05/2025 Transfer to medical surgical floor today. Hemoglobin 8.9. Appears to be stable Patient's right thigh visibly appears to be less swollen compared to yesterday. Mental status is at baseline she is ANO x 3. Feeling better overall. She also acknowledges that she feels her leg feels better. CK trending down Creatinine is normalized. Patient will be transferred to medical surgical floor. We will check another set of labs in the morning if hemoglobin remains to be stable she may be able to discharge to nursing facility Continue to follow speech therapy, physical therapy, OT. Patient okay to move out of ICU. PDMP PDMP Reviewed: Not Reviewed Attestations 2 Medical Necessity Statement*: continue to monitor hb Diagnoses Diabetic peripheral neuropathy associated with type 2 diabetes mellitus E11.42 Cellulitis of left foot L03.116 Osteomyelitis of great toe of left foot M86.9 Atrial fibrillation with rapid ventricular response I48.91 Diabetic foot infection E11.628; L08.9 Fall W19.XXXA Acute anemia D64.9 Hematoma T14.8XXA Acute CVA (cerebrovascular accident) I63.9
[2025-02-05] MEDS: HYDROcodone-acetaminophen 5-325 mg Tablet 0.5 TAB PO ×2 (13:34→21:39)
--- NOTE | 2025-02-05 15:36 | ECG_ITS ---
[facility] Date[facility] 2025-[facility]05 Pat Name: Kaylee Ch Department: Room: ICU11 Gender: Female Can Solderer: : 1955 Requested By: Elin Main Order Number: [id number] Reading MD: EARLENE GOSS Measurements Intervals [place] Rate: 97 P: 0 MN: 0 QRS: 71 QRSD: 96 T: -5 QT: 367 QTc: 466 Interpretive Statements ATRIAL FIBRILLATION NONSPECIFIC ST & T-WAVE ABNORMALITY Compared to ECG 01/31/2025 06:14:36 No significant changes Electronically Signed On 02-05-2025 22:17:38 CDT by EARLENE GOSS [email or web address]
[2025-02-05 17:14] LABS: Blood Urea Nitrogen 8 mg/dL (8-23); Calcium 8.4 mg/dL (8.5-10.5); Carbon Dioxide 23 mmol/L (22-29); Chloride 99 mmol/L (98-107); Creatinine Clr Calc Pharmacy 75.3873; Glucose 151 mg/dL (65-115); Magnesium 1.9 mg/dL (1.7-2.3); Osmolality Calculated 283 mOsm/kg (285-295); Sodium 136 mmol/L (136-145)
[2025-02-05 17:17] LABS: Anion Gap 18.0 (5-19); Potassium 4.0 mmol/L (3.5-5.1)
[2025-02-06] VITALS (8 sets, daily range): BP systolic 120–179; BP diastolic 66–82; PULSE 67–88; RESP 15–18; TEMP 36.4–36.8; O2SAT 94–96
[2025-02-06] MEDS: piperacillin-tazobactam 3.375 GM in sodium chloride 0.9% (plus) 50 ML IV (01:17)
[2025-02-06] MEDS: morphine 4 mg/mL SDV 1 mL 2 MG IVP (02:34)
[2025-02-06] MEDS: pantoprazole 40 mg SDV IVP (06:03)
[2025-02-06 07:25] LABS: Alanine Aminotransferase 60 U/L (0-33); Albumin Level 2.8 g/dL (3.5-5.2); Alkaline Phosphatase 155 U/L (35-105); Anion Gap 15.0 (5-19); Aspartate Amino Transferase 24 U/L (0-32); Blood Urea Nitrogen 8 mg/dL (8-23); Calcium 7.9 mg/dL (8.5-10.5); Carbon Dioxide 26 mmol/L (22-29); Chloride 100 mmol/L (98-107); Creatinine Clr Calc Pharmacy 75.4749; Globulin 2.2 g/dL (1.3-4.6); Glucose 181 mg/dL (65-115); Magnesium 1.8 mg/dL (1.7-2.3); Osmolality Calculated 287 mOsm/kg (285-295); Potassium 4.0 mmol/L (3.5-5.1); Sodium 137 mmol/L (136-145); Total Protein 5.0 g/dL (6.6-8.7)
[2025-02-06] MEDS: ATORVASTATIN 10 MG TABLET 20 MG PO (08:22)
[2025-02-06] MEDS: sennosides-docusate Tablet 1 TAB PO (08:23)
[2025-02-06 08:32] LABS: Hematocrit 27.7 % (36-47); Hemoglobin 8.70 g/dL (11.27-16.99); Mean Corpuscular HGB Conc 31.4 g/dL (30-55); Mean Corpuscular Hemoglobin 28.5 pg (27-33); Mean Corpuscular Volume 90.8 fl (85-98); Nucleated Red Blood Cells % 0 %; Platelet Count 403 10^3/cmm (157-399); Red Blood Count 3.05 10^6/uL (3.85-5.65); White Blood Count 12.87 10^3/uL (3.29-11.43)
--- NOTE | 2025-02-06 09:25 | P.DS_ITS ---
Discharge Providers Date of Admission: 01/26/25 16:50 Date of Discharge: February 06, 2025 Attending Provider at Admission: Alexander Ramos MD Attending Provider at Discharge: Elin Main MD Primary Care Provider: Carter Yusuf MD Diagnoses at Discharge Discharge Diagnosis 1. Diabetic peripheral neuropathy associated with type 2 diabetes mellitus: 2. Cellulitis of left foot: 3. Osteomyelitis of great toe of left foot: 4. Atrial fibrillation with rapid ventricular response: 5. Diabetic foot infection: 6. Fall: 7. Acute anemia: 8. Hematoma: 9. Acute CVA (cerebrovascular accident): Reason for Visit Reason for Visit: sent for admit-removing toe Hospital Course Hospital Course Kaylee Ch is a 69 year old female history of type 2 diabetes, hypertension, hyperlipidemia, history of TIA, who presents to [facility] due to 2 concerns for left foot great toe swelling, erythema, with tachycardia. Currently patient is alert oriented x 3, following all commands, she denies any fevers, no chills, she does report chest palpitations, no chest pain, no shortness of breath. She was seen by Dr. Ahuja this morning, she has had increased swelling of her left great toe, she has had cultures that have grown Pseudomonas she has been on ciprofloxacin but continues to have increased swelling and tenderness of her left great toe. There is also concerns for atrial fibrillation, she was found to have A-fib, we are emergency room heart rates as high as 145 placed on a Cardizem drip This is a 69-year-old female who presented to [facility] for diabetic foot infection, with history of Pseudomonas infection, who presents to [facility] for diabetic foot infection, status post IV antibiotics, left great toe amputation secondary to osteomyelitis , tolerated procedure well, will be discharged on oral antibiotics, with close follow-up with podiatry as outpatient Patient was found to have A-fib with RVR during the hospitalization, requiring Cardizem drip, transition to p.o. Cardizem, CHADS2 Vasc score is 4, discussed risk and benefits of anticoagulant therapy, she voiced understanding, all question answered, agreed to proceed. Will be discharged on Eliquis 5 mg twice daily, with close follow-up with cardiology as outpatient. Patient was advised if she develops any bloody or black stools to me to go to the emergency room. She has any significant falls or head trauma to go to the emergency room. Have primary care provider recheck hemoglobin in 1 week. Patient was advised if she has any strokelike symptoms immediately call 911. Physical Exam Urinary Catheter Management: Wyatt: Cath Placed During This Visit: yes Reason for Continuing Indwelling Catheter: Required Immobilization for Trauma or Surgery or Anesthesia Urinary Catheter Date of Insertion: 01/30/25 Urinary Catheter Time of Insertion: 18:14 Discharge Data Studies Completed and Pending Completed Studies During Hospitalization Category Date Time Status CT angio head neck [CT angio headneck* 68043/72042] Cat Scan 01/30/25 08:[address] chest abdomen pelvis [[place] [id number] Cat Scan 01/31/25 10:15 Completed ] Routine CT femur RT w con [id number] Stat Cat Scan 02/03/25 12:[address] head wo con* [id number] Routine Cat Scan 01/28/25 13:[address] head wo con* 41505 Routine Cat Scan 01/30/25 08:[address] head wo con* 25536 Stat Cat Scan 01/31/25 10:[address] hip RT wo con* 86572 Stat Cat Scan 01/29/25 09:[address] pelvis w con* 98950 Stat Cat Scan 02/03/25 12:02 Completed XR chest 1V portable [id number] Routine Exams 01/30/25 07:55 Completed XR foot LT 2V 90878 Routine Exams 01/28/25 19:04 Completed XR foot RT 2V 10401 Routine Exams 01/29/25 09:08 Completed XR hip BI 2V wo/w pel 79785 Routine Exams 01/28/25 13:29 Completed XR knee RT 1-2V 97489 Routine Exams 01/29/25 09:08 Completed XR tibia fibula RT 2V [id number] Routine Exams 01/29/25 09:08 Completed Pathology: Surgical [PTH] Routine Pth 01/27/25 12:46 Completed CV. echo complete* [id number] Routine Ultrasound 01/26/25 17:39 [place] thyroid 88289 Routine Ultrasound 01/27/25 16:22 Completed US venous duplex lower extremity bilat [CV venous Ultrasound 02/01/25 10:39 [place] [id number]] Routine Pending at discharge Category Date Time Status C.Diff PCR (Lab) Routine Lab 01/30/25 07:38 Ordered CPK [Creatine Phosphokinase] AM LABS Lab 02/07/25 04:00 Ordered Comprehensive Metabolic Panel AM LABS Lab 02/07/25 04:00 Ordered Magnesium AM LABS Lab 02/07/25 04:00 Ordered Phosphorus AM LABS Lab 02/07/25 04:00 Ordered Radiology Impressions Thyroid Ultrasound 01/27/25 16:22 IMPRESSION: Normal thyroid ultrasound. Hip/Pelvis X-Ray 01/28/25 13:29 Impression: Negative pelvis and both hips. Foot X-Ray 01/29/25 09:08 IMPRESSION: No definite acute osseous findings within limitations of the examination. Hip CT 01/29/25 09:08 IMPRESSION: 1. No acute RIGHT hip fracture is identified. If the pain is out of proportion to the image findings MRI of the RIGHT hip, noncontrast would provide additional information concerning subtle marrow edema/injury. 2. Large soft tissue hematoma centered posterior to the RIGHT hip measures at least 10.2 x 6.8 cm. Knee X-Ray 01/29/25 09:08 IMPRESSION: No acute osseous findings. Tibia/Fibula X-Ray 01/29/25 09:08 IMPRESSION: No acute osseous findings. Chest X-Ray 01/30/25 07:55 Impression: Atherosclerosis. Head/Neck CTA 01/30/25 08:23 IMPRESSION: 1. No significant cervical carotid artery stenosis. Mild atherosclerotic plaque at the bifurcations. 2. Atherosclerotic plaque in the intracranial carotid arteries through the cavernous sinuses. Less than 50% stenosis. 3. No flow-limiting stenosis or thrombus in the mcgrath of [place]. 4. Dominant LEFT vertebral artery. Both vertebral arteries are patent. Chest/Abdomen/Pelvis CT 01/31/25 10:15 IMPRESSION: 1. Age-indeterminate T12 compression deformity. Clinical correlation is advised. If indicated, MRI can be obtained to exclude acute compression fracture. 2. Coronary calcifications. 3. Mild calcified atherosclerotic changes are seen in the thoracic aorta. IMPRESSION: 1. Large right gluteal hyperdense lesion measuring 4.1 x 7.9 x 10.7 cm. It has medial component extending to the right piriformis muscle. Finding could represent a intramuscular hematoma. Clinical correlation is advised. 2. Mild calcified atherosclerotic changes are seen throughout the abdominal aorta. 3. Diffuse colonic stool material. Clinical correlation to exclude constipation is advised. Head CT 01/31/25 10:15 IMPRESSION: No large territorial infarct or intracranial bleed. Venous Duplex 02/01/25 10:39 IMPRESSION: No sonographic evidence of deep venous thrombosis. Pelvis CT 02/03/25 12:02 IMPRESSION: 1. Large intramuscular hematoma of the right gluteal muscle group with no evidence of active contrast extravasation 2. Large poorly defined area of edema involving the anterior musculature of the right. I favor this to represent muscular contusion. No contrast extravasation noted. Femur CT 02/03/25 12:06 IMPRESSION: Large poorly defined area of edema involving the anterior musculature of the right. I favor this to represent contusion. No evidence of active bleeding. Laboratory Results WBC 12.87 10^3/uL (3.29-11.43) H 02/06/25 06:56 Corrected WBC Cancelled 02/03/25 02:20 RBC 3.05 10^6/uL (3.85-5.65) L 02/06/25 06:56 Hgb 8.70 g/dL (11.27-16.99) L 02/06/25 06:56 Hct 27.7 % (36-47) L 02/06/25 06:56 MCV 90.8 fl (85-98) 02/06/25 06:56 MCH 28.5 pg (27-33) 02/06/25 06:56 MCHC 31.4 g/dL (30-55) 02/06/25 06:56 RDW 14.2 % (12.1-15.1) 02/06/25 06:56 Plt Count 403 10^3/cmm (157-399) H 02/06/25 06:56 MPV 9.2 fL (7.4-10.4) 02/06/25 06:56 Gran % Cancelled 02/03/25 02:20 Neut % (Auto) 62.5 % 02/06/25 06:56 Lymph % (Auto) 16.9 % 02/06/25 06:56 [place] % (Auto) 11.0 % 02/06/25 06:56 Eos % (Auto) 7.6 % 02/06/25 06:56 Baso % (Auto) 0.4 % 02/06/25 06:56 Neut # (Auto) 8.05 10^3/uL (1.8-7.7) H 02/06/25 06:56 Lymph # (Auto) 2.2 10^3/uL (0.8-4.8) 02/06/25 06:56 [place] # (Auto) 1.4 10^3/uL (0.2-0.9) H 02/06/25 06:56 Eos # (Auto) 1.0 10^3/uL (0.0-0.8) H 02/06/25 06:56 Baso # (Auto) 0.1 10^3/uL (0.0-0.1) 02/06/25 06:56 Absolute Gran (auto) Cancelled 02/03/25 02:20 Nucleated RBC % (auto) 0 % 02/06/25 06:56 Nucleated RBCs # 0.0 /100WBC 02/06/25 06:56 ESR 30 mm/hr (0-15) H 01/26/25 14:07 PT 15.30 SECONDS (12.1-14.9) H 01/30/25 07:49 INR 1.13 (0.8-1.2) 01/30/25 07:49 APTT 27.5 SECONDS (23.9-36.7) 01/26/25 14:07 Specimen Type Arterial 01/31/25 10:25 Sample Site Radial, right 01/31/25 10:25 ABG pH 7.39 (7.35-7.45) 01/31/25 10:25 ABG pCO2 45.5 mmHg (35-45) H 01/31/25 10:25 ABG pO2 59.8 mmHg (80.0-100.0) L 01/31/25 10:25 ABG PO2/FiO2 Ratio 284 01/31/25 10:25 ABG HCO3 27.4 mmol/L (22-26) H 01/31/25 10:25 ABG O2 Saturation 91.9 01/31/25 10:25 ABG Base Excess 2.1 mmol/L (-2.0-2.0) H 01/31/25 10:25 Chaz Test Pos 01/31/25 10:25 A-a O2 Gradient 4.4 mmHg (5-10) L 01/31/25 10:25 Hematocrit 22.8 % (37-47) L 01/31/25 10:25 Hgb O2 Saturation 89.1 % (95-100) L 01/31/25 10:25 Carboxyhemoglobin 1.8 %THgb (0.4-20.1) 01/31/25 10:25 Methemoglobin 1.2 % (0.4-1.5) 01/31/25 10:25 Total Hemoglobin 7.4 g/dL (12-16) L 01/31/25 10:25 Sodium 132.0 mmol/L (131-143) 01/31/25 10:25 Potassium 3.6 mmol/L (3.5-5.0) 01/31/25 10:25 Glucose 206.0 mg/dL (70-115) H 01/31/25 10:25 Ionized Calcium 1.2 mmol/L (1.1-1.4) 01/31/25 10:25 O2 Delivery Device Room air 01/31/25 10:25 FiO2 21.0 % 01/31/25 10:25 Dietary Cook ID Gd 01/31/25 10:25 Sodium 137 mmol/L (136-145) 02/06/25 06:56 Potassium 4.0 mmol/L (3.5-5.1) 02/06/25 06:56 Chloride 100 mmol/L (98-107) 02/06/25 06:56 Carbon Dioxide 26 mmol/L (22-29) 02/06/25 06:56 Anion Gap 15.0 (5-19) 02/06/25 06:56 BUN 8 mg/dL (8-23) 02/06/25 06:56 Creatinine 0.7 mg/dL (0.5-0.9) 02/06/25 06:56 GFR Calculation 82.7 mL/min (90-130) L 02/06/25 06:56 Glucose 181 mg/dL (65-115) H 02/06/25 06:56 POC Glucose 183 mg/dL (70-110) H 02/06/25 06:09 Estimat Average Glucose 128 01/26/25 17:59 Hemoglobin A1c 6.1 % (4.0-6.0) H 01/26/25 17:59 Calculated Osmolality 287 mOsm/kg (285-295) 02/06/25 06:56 Lactic Acid 1.5 mmol/L (0.5-2.2) 01/30/25 16:25 Lactate 0.7 mmol/L (0.5-2.2) 02/02/25 04:38 Calcium 7.9 mg/dL (8.5-10.5) L 02/06/25 06:56 Phosphorus 2.6 mg/dL (2.5-4.5) 02/06/25 06:56 Magnesium 1.8 mg/dL (1.7-2.3) 02/06/25 06:56 Total Bilirubin 0.6 mg/dL (0.15-1.2) 02/06/25 06:56 AST 24 U/L (0-32) 02/06/25 06:56 ALT 60 U/L (0-33) H 02/06/25 06:56 Alkaline Phosphatase 155 U/L (35-105) H 02/06/25 06:56 Creatine Kinase 428 U/L (26-192) H* 02/06/25 06:56 Troponin T Baseline 20 ng/L (0-10) H 01/26/25 17:59 Troponin T 120 Minute 21.63 ng/L (0-10) H 01/26/25 21:09 Delta Troponin T 1.63 ABS# (0-10) 01/26/25 21:09 Troponin T Hi Sens 6Hr 21.60 ng/L (0-10) H 01/26/25 23:47 Troponin T Hi Sens 6Hr Delta 1.60 ng/L (0-12) 01/26/25 23:47 C-Reactive Protein 154.0 mg/L (0.0-4.9) H 02/02/25 04:38 NT-Pro-B Natriuret Pep 754 pg/mL (0-125) H 02/02/25 04:38 Total Protein 5.0 g/dL (6.6-8.7) L 02/06/25 06:56 Albumin 2.8 g/dL (3.5-5.2) L 02/06/25 06:56 Globulin 2.2 g/dL (1.3-4.6) 02/06/25 06:56 Triglycerides 133 mg/dL (0-150) 01/26/25 17:59 Cholesterol 154 mg/dL (0-200) 01/26/25 17:59 LDL Cholesterol, Calc 68 mg/dL (50-129) 01/26/25 17:59 HDL Cholesterol 59 mg/dL (60-100) L 01/26/25 17:59 LDL/HDL Ratio 1.15 RATIO (0.00-3.22) 01/26/25 17:59 Cholesterol/HDL Ratio 2.61 mg/dL (0.0-4.40) 01/26/25 17:59 Procalcitonin 0.12 ng/mL (0-0.5) 02/02/25 04:38 TSH 0.02 uIU/mL (0.27-4.20) L 01/27/25 03:29 Free T4 1.89 ng/dL (0.82-1.77) H 01/27/25 03:29 Free T3 2.5 PG/ML (2.0-4.4) 01/27/25 03:29 Urine Color Yellow (Yellow) 02/04/25 09:44 Urine Appearance Clear (CLEAR) 02/04/25 09:44 Urine pH 6.5 (5-7) 02/04/25 09:44 Ur Specific [place] 1.021 (1.005-1.030) 02/04/25 09:44 Urine Protein 1+ (Negative) A 02/04/25 09:44 Urine Glucose (UA) Negative (Normal) 02/04/25 09:44 Urine Ketones Negative (Negative) 02/04/25 09:44 Urine Blood 1+ (Negative) A 02/04/25 09:44 Urine Nitrate Negative (Negative) 02/04/25 09:44 Urine Bilirubin Negative (Negative) 02/04/25 09:44 Urine Urobilinogen 1.0 mg/dL (Negative) 02/04/25 09:44 Ur Leukocyte Esterase 1+ (Negative) A 02/04/25 09:44 Urine RBC 11-20 /hpf (0-2) H 02/04/25 09:44 Urine WBC 0-5 /hpf (0-5) 02/04/25 09:44 Ur Squamous Epith Cells 0-5 /hpf (0-5) 02/04/25 09:44 Amorphous Sediment Not Reportable 02/04/25 09:44 Urine Bacteria None seen /hpf (NONE) 02/04/25 09:44 Hyaline Casts 13.63 /lpf 02/04/25 09:44 Urine Osmolality 306 mOsm/kg (50-1200) 02/02/25 18:33 Ur Random Sodium 61 mmol/L 02/04/25 09:44 Ur Random Potassium 20 mmol/L 02/04/25 09:44 Ur Random Chloride 36 mmol/L 02/04/25 09:44 Urine Creatinine 43 mg/dL (28-217) 02/04/25 09:44 Vancomycin Trough 21.2 ug/mL (10-15) H 02/05/25 16:08 Random Vancomycin 17.5 ug/mL (20.0-40.0) L 02/06/25 06:56 Blood Type A Positive 02/03/25 09:06 Rho(D) Type Rh positive 02/03/25 09:06 Antibody Screen Negative 02/03/25 09:06 Crossmatch See Detail 02/03/25 09:06 Vitals Last Vital Signs Temp 97.6 F 02/06/25 07:48 Pulse 67 02/06/25 07:48 Resp 15 02/06/25 07:48 BP 173/82 02/06/25 07:48 Pulse Ox 96 02/06/25 07:48 O2 Del Method Room Air 02/06/25 07:48 O2 Flow Rate 6 01/27/25 12:55 Discharge Plan Discharge Patient Disposition: Xfer SNF Condition: Stable Prescriptions: New hydrocodone-acetaminophen 5-325 mg Tablet 0.5 tab PO Q8H PRN (Reason: Moderate Pain) Qty: 9 0RF quetiapine 25 mg Tablet 25 mg PO BEDTIME Qty: 30 0RF sennosides-docusate sodium [Stool Softener-Laxative] 8.6-50 mg Tablet 1 tab PO BID PRN (Reason: Constipation) Qty: 30 0RF amlodipine 10 mg tablet 10 mg PO DAILY Qty: 30 0RF aspirin 81 mg Tablet,Delayed Release (Dr/Ec) 81 mg PO DAILY Qty: 30 0RF amiodarone [Pacerone] 200 mg Tablet See Rx Instructions .ROUTE .COMPLEX Qty: 60 0RF Rx Instructions: 400 mg daily for 7 days then reduce dose to 200 mg daily. olanzapine 5 mg Tablet 2.5 mg PO BID Qty: 30 0RF Continued (DME) cam boot to right See Rx Instructions .Route .MEDSUPPLY Qty: 1 0RF Rx Instructions: As directed lamotrigine 200 mg tablet 200 mg PO BID ramelteon 8 mg tablet 8 mg PO BEDTIME (DME) Diabetic shoes See Rx Instructions .Route .MEDSUPPLY Qty: 1 0RF Rx Instructions: Heel lift and insoles. Last HgbA1C 5.7 on 02/01. mupirocin 2 % ointment 1 applic topical BID 14 Days Qty: 22 1RF (DME) Diabetic Shoes with Inserts See Rx Instructions .Route .MEDSUPPLY Qty: 1 0RF Rx Instructions: As directed (DME) insulin syringe-needle U-100 [BD Insulin Syringe] 1 mL 28 gauge x 1/2 syringe See Rx Instructions .Route Qty: 100 11RF Rx Instructions: As directed (DME) blood-glucose meter Misc See Rx Instructions .MEDSUPPLY Qty: 1 0RF Rx Instructions: Check TID (DME) Blood Glucose Test Strip See Rx Instructions .MEDSULY Qty: 200 12RF Rx Instructions: Use with glucometer to check blood sugar three times a day (DME) blood-glucose meter [Accu-Chek Guide Glucose Meter] Misc See Rx Instructions .Route Qty: 1 0RF Rx Instructions: As directed (DME) Accu-Chek Guide test strips Strip See Rx Instructions .Route Qty: 100 11RF Rx Instructions: check TID (DME) lancets [Accu-Chek Softclix Lancets] Misc See Rx Instructions .Route Qty: 200 11RF Rx Instructions: use as directed three times a day (DME) insulin syringe-needle U-100 [TRUEplus Insulin] 1 mL 31 gauge x 5/16 syringe See Rx Instructions .ROUTE .COMPLEX Qty: 100 3RF Dose Instruction: TO USE WITH LANTUS Rx Instructions: TO USE WITH LANTUS Ozempic 0.25 mg or 0.5 mg (2 mg/3 mL) pen injector 0.5 mg SUBCUT .weekly Qty: 3 11RF Rx Instructions: Sunday multivitamin Tablet 1 tab PO DAILY@1000 Hair, Skin, Nails with Biotin 7.5-7.5-1,250 mg-unit-mcg Tablet,Chewable 1 tab PO DAILY@1000 cyanocobalamin (vitamin B-12) [Vitamin B-12] 1,000 mcg Tablet 1,000 mcg PO DAILY cyclobenzaprine 10 mg tablet 10 mg PO TID PRN (Reason: Muscle Spasm) atorvastatin 20 mg tablet 20 mg PO .DAILY@10AM gabapentin 100 mg capsule 100 mg PO BID potassium chloride 20 mEq tablet extended release 20 meq PO .DAILY@10AM fluoxetine 20 mg capsule 20 mg PO QAM duloxetine 60 mg capsule,delayed release(DR/EC) 120 mg PO QAM lidocaine [Lidoderm] 5 % adhesive patch,medicated 1 patch topical DAILY PRN (Reason: Pain) Rx Instructions: leave on most painful area for up to 12 hrs then take off levothyroxine 200 mcg tablet 200 mcg PO .DAILY@10AM omega 6-wtt-isd-fish oil [Fish Oil] 1,200 (144-216) mg Capsule See Rx Instructions .ROUTE .COMPLEX Rx Instructions: unknown dose of OTC Changed glimepiride 4 mg tablet 2 mg PO BID Qty: 30 0RF Discontinued diazepam 10 mg tablet 10 mg PO BID PRN (Reason: Sleep) hydrocodone-acetaminophen 7.5-325 mg tablet 1 tab PO Q6H 7 Days Qty: 28 0RF ciprofloxacin HCl 500 mg tablet 500 mg PO BID 14 Days Qty: 28 0RF propranolol 80 mg capsule,extended release 24 hr 80 mg PO BID aspirin 325 mg Tablet 325 mg PO DAILY meloxicam 15 mg tablet 15 mg PO DAILY olanzapine 5 mg tablet 5 mg PO BEDTIME quetiapine 400 mg tablet 400 mg 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 OK for DC: Cardiology Other Ambulatory Orders: Complete Blood Count w/Auto (Q4D) Timeframe: 20250209 Location: Determined by Patient Ordered By: Elin Etelvina Complete Blood Count w/Auto (Q4D) Timeframe: 20250213 Location: Determined by Patient Ordered By: Elin Etelvina Complete Blood Count w/Auto (Q4D) Timeframe: 20250217 Location: Determined by Patient Ordered By: Elin Etelvina Referrals: Jr Ahuja DPM [Physician, Podiatry] - 4-7 days Mj Espinoza MD [Physician, Cardiology] - 1-3 days Carter Yusuf MD [Primary Care Provider, Family Practice] - 1-3 days Discharge Diet: Advance as tolerated Discharge Activity: Limit activity as instructed Patient Instructions: Aspirin (By mouth), Acute Wound Care (DC), Post Anesthesia Care Activity Restrictions/Additional Instructions: Recommendations from Dr. Goodman Maurer. Once daily dressing change Adaptic, gauze, Kerlix and Emil wrap left foot. Weightbearing as tolerated. Please wear a postoperative shoe to the left foot when weightbearing. Elevate left foot while resting. Will evaluate for possible suture removal 14 days out from surgery this would be February 10. Contact podiatry clinic with any questions or concerns [phone] I am not putting on Eliquis which is an anticoagulant secondary to your hip hematoma at this time. Your hemoglobin is stable at this time however due to the large amount of blood transfusions you are required during hospital stay we will hold off on Eliquis for now. Ideally you should be on 325 of aspirin daily however we will only order aspirin 81 daily at this time secondary to the hematoma. If hemoglobin continues to remain stable over the next 1 week your primary care can consider increasing your aspirin to 325 mg daily. Please follow-up with cardiology closely and see your primary as soon as possible. We have adjusted your Seroquel and olanzapine doses during hospitalization due to excessive sedative effect. He used to be on Seroquel 400 at nighttime however now on 25 mg at night night. Your primary care physician may consider increasing her dose as needed and titrate up to effect. Olanzapine dose is still 5 mg daily however I have switched it to 2.5 mg twice a day. Coding Level of Care Code Acute Code for [facility] Diagnoses Diabetic peripheral neuropathy associated with type 2 diabetes mellitus E11.42 Cellulitis of left foot L03.116 Osteomyelitis of great toe of left foot M86.9 Atrial fibrillation with rapid ventricular response I48.91 Diabetic foot infection E11.628; L08.9 Fall W19.XXXA Encounter type: initial encounter Acute anemia D64.9 Hematoma T14.8XXA Acute CVA (cerebrovascular accident) I63.9
--- NOTE | 2025-02-06 10:58 | PC.NURSE ---
Called report to Reba Lozoya LPN in which nurse hesitated to give me her last name. Nurse sat on phone while I have report with no sound. This nurse check at one point to see if the KNIFE SETTER GRINDER MACHINE was still on the phone. This nurse told KNIFE SETTER GRINDER MACHINE the abbasi was pulled at 1048 and the patient had two IV's removed on left wrist and forearm, patient had a BM on 02/05 and 02/06 at 0228. Also have patients height and weight and stated patient has a weak left knee and a Yrc-zb-[id number] would be needed upon arrival and when going potty. I asked KNIFE SETTER GRINDER MACHINE if any thing else was needed from me outside of all the other information I have such as name, and vitals. KATYA said, NO .
== END 2025-02-06 10:55 | disposition skilled nursing facility (03) | DRG 616 ==
LOC: ER 15:46 → CSU 16:50 → ICU 01-30 11:08 → MEDSURG 02-05 21:18
PROVIDERS: Emergency Medicine; Hospitalist; Internal Medicine; Internal Medicine Nephrology; Podiatrist Foot & Ankle Surgery; Admitting Provider Family Medicine; Emergency Provider Family Medicine; PCP Family Medicine; Visit Provider Internal Medicine
PROC: 0Y6Q0Z0 Detachment at Left 1st Toe, Complete, Open Approach (ICD-10-PCS; principal; 2025-01-27 12:40)
DX: E11.69 Type 2 diabetes mellitus with other specified complication (principal); I63.9 Cerebral infarction, unspecified; E87.1 Hypo-osmolality and hyponatremia; L03.115 Cellulitis of right lower limb; M86.9 Osteomyelitis, unspecified; M62.82 Rhabdomyolysis; D62 Acute posthemorrhagic anemia; E11.628 Type 2 diabetes mellitus with other skin complications; D72.829 Elevated white blood cell count, unspecified; E11.42 Type 2 diabetes mellitus with diabetic polyneuropathy; S70.01XA Contusion of right hip, initial encounter; B96.5 Pseudomonas (aeruginosa) (mallei) (pseudomallei) as the cause of diseases classified elsewhere; I48.91 Unspecified atrial fibrillation; D64.9 Anemia, unspecified; R00.0 Tachycardia, unspecified; I10 Essential (primary) hypertension; E78.5 Hyperlipidemia, unspecified; Z86.73 Personal history of transient ischemic attack (TIA), and cerebral infarction without residual deficits; Z89.412 Acquired absence of left great toe; Z79.899 Other long term (current) drug therapy; Z79.4 Long term (current) use of insulin; Z79.85 Long-term (current) use of injectable non-insulin antidiabetic drugs; Z79.82 Long term (current) use of aspirin; Z88.3 Allergy status to other anti-infective agents; Z88.8 Allergy status to other drugs, medicaments and biological substances; Z90.49 Acquired absence of other specified parts of digestive tract; W19.XXXA Unspecified fall, initial encounter; R29.702 NIHSS score 2
CPT/HCPCS: 36415; 36416; 36430; 36600; 51702; 51798; 70450; 70496; 70498; 71045; 71250; 72193; 73521; 73560; 73590; 73620; 73630; 73700; 73701; 74176; 76536; 80048; 80051; 80053; 80061; 80202; 81001; 82330; 82436; 82550; 82570; 82805; 82962; 83036; 83605; 83735; 83880; 83935; 84100; 84133; 84145; 84295; 84300; 84439; 84443; 84481; 84484; 85014; 85018; 85025; 85610; 85651; 85730; 86140; 86850; 86900; 86920; 87040; 87086; 88305; 88311; 92507; 92523; 93005; 93306; 93970; 94664; 96365; 96366; 96367; 96372; 97110; 97162; 97165; 97530; 97535; 97760; 99214; 99291; A9270; J0283; J0692; J1650; J1815; J1938; J2020; J2250; J2270; J2405; J2470; J2543; J2704; J3010; J3373; J3490; J7030; J7050; J9999; L3260; P9016; P9040; P9051; Q3014

== ENCOUNTER 2025-02-06 15:40 | Emergency (ER) | payer MEDICARE, OTHER, SELFPAY ==
[2025-02-06 15:41] VITALS: BP 144/68; PULSE 68; RESP 18; TEMP 36.6; O2SAT 97; BMI 30.7
--- OUTSIDE RECORDS SUMMARY | 2025-02-06 15:51 | XMS_ITS | Encounter Summary ---
Author Organization [facility] Address [address] [place] [address] Care Team Providers Care Supervisor Intermediates Name Role Phone Jayesh Krueger MD Primary Care Provider [phone] Encounter Details Date Type Department Care Team (Latest Contact Info) Description 11/04/2004 Outpatient Historical [facility] Endocrinology-[facility] [place] [address] [place] [address] Chin Patel MD NO ADDRESS ON FILE DIABETES MELLITUS TYPE II-UNCOMPL (CMS/HCC) (Primary Dx); HYPERLIPIDEMIA NEC/NOS; THYROTOX NOS NO CRISIS; HYPOTHYROIDISM NOS Social History Tobacco Use Types Packs/Day Years Used Date Smoking Tobacco: Never Assessed Comments Unknown Sex and Gender Information Value Date Recorded Sex Assigned at Not on file Legal Sex Female 5:34 AM [employer] Gender Identity Not on file Sexual Orientation [...] hypothyroidism documented in this encounter Care Teams Supervisor Intermediates Relationship Specialty Start Date End Date Jayesh Krueger MD [address] [place] [address] PCP - General Internal Medicine 12/19/16 documented as of this encounter
--- OUTSIDE RECORDS SUMMARY | 2025-02-06 15:51 | XMS_ITS | Encounter Summary ---
Author Organization [facility] Address [address] [place] [address] Care Team Providers Care Paper Conservator Name Role Phone Jayesh Krueger MD Primary Care Provider [phone] Encounter Details Date Type Department Care Team (Latest Contact Info) Description 05/08/2005 Outpatient Historical [facility] Endocrinology-[facility] [place] [address] [place] [address] Chin Patel MD NO ADDRESS ON FILE DIABETES MELLITUS TYPE II-UNCOMPL (CMS/HCC) (Primary Dx); HYPERLIPIDEMIA NEC/NOS; HYPERTENSION NOS Social History Tobacco Use Types Packs/Day Years Used Date Smoking Tobacco: Never Assessed Comments Unknown Sex and Gender Information Value Date Recorded Sex Assigned at Not on file 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
--- OUTSIDE RECORDS SUMMARY | 2025-02-06 15:51 | XMS_ITS | Encounter Summary ---
Author Organization [facility] Address [address] [place] [address] Care Team Providers Care Industrial Equipment Wirer Name Role Phone Jayesh Krueger MD Primary Care Provider [phone] Encounter Details Date Type Department Care Team (Latest Contact Info) Description 07/05/[address] 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
--- OUTSIDE RECORDS SUMMARY | 2025-02-06 15:51 | XMS_ITS | Encounter Summary ---
Author Organization [facility] Address [address] [place] [address] Care Team Providers Care Electric Distribution Engineer Name Role Phone Jayesh Krueger MD Primary Care Provider [phone] Encounter Details Date Type Department Care Team (Late st Contact Info) Description 01/12/2010 Ancillary Orders [facility] Orthopedics- [address] [place] [address] Jean-Paul Kirkland MD NO ADDRESS ON FILE Pain Social History Tobacco Use Types Packs/Day Years Used Date Smoking Tobacco: Never Alcohol Use Standard Drinks/Week Comments No 0 (1 standard drink = 0.6 oz pur e alcohol) Comments No Sex and Gender Information Value Date Recorded Sex Assigned at Not on file Legal Sex Female 5:34 AM CARROT TIER Gender Identity Not on file Sexual Orientation Not on file documented as of this encounter Plan of Treatment Not on file documented as of this encounter Results * XR KNEE 1 OR 2 VW LEFT (01/12/2010 11:48 AM CDT) Anatomical Region Laterality Modality Lower Extremity Computed Radiogr aphy Narrative 08/03/2011 9:33 AM CARROT TIER AP and lateral radiographs of both knees [...] pain documented in this encounter Care Teams Electric Distribution Engineer Relationship Specialty Start Date End Date Jayesh Krueger MD [address] [place] [address] PCP - General Internal Medicine 12/19/16 documented as of this encounter
--- OUTSIDE RECORDS SUMMARY | 2025-02-06 15:51 | XMS_ITS | Encounter Summary ---
Author Organization [facility] Address [address] [place] [address] Care Team Providers Care Granite Installer Name Role Phone Jayesh Krueger MD Primary Care Provider [phone] Encounter Details Date Type Department Care Team (Latest Contact Info) Description 10/31/2006 Outpatient Historical [facility] Endocrinology-[facility] [place] [address] [address] Brice Oconnell, [place] [address] 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 Gender Identity Not on file Sexual Orientation Not on file documented as of this encounter Plan of Treatment Not on file documented as of this encounter Visit Diagnoses Diagnosis Type II or unspecified type diabetes mellitus without mention of complication, not stated as uncontrolled- Primary Other and unspecified hyperlipidemia Unspecified essential hypertension documented in this encounter Care Teams Granite Installer Relationship Specialty Start Date End Date Jayesh Krueger MD [address] [place] [address] PCP - General Internal Medicine 12/19/16 documented as of this encounter
--- OUTSIDE RECORDS SUMMARY | 2025-02-06 15:51 | XMS_ITS | Encounter Summary ---
Author Organization [facility] Address [address] [place] [address] Care Team Providers Care Nuclear Design Engineer Name Role Phone Jayesh Krueger MD Primary Care Provider [phone] Encounter Details Date Type Department Care Team (Latest Contact Info) Description 11/27/2002 Outpatient Historical [facility] [address] [place] [address] Thomas Dailey MD [address] [place] [address] DISC DIS NEC/NOS-LUMBAR (Primary Dx) Social History Tobacco Use Types Packs/Day Years Used Date Smoking Tobacco: Never Assessed Comments Unknown Sex and Gender Information Value Date Recorded Sex Assigned at Not on file Legal Sex Female 5:34 AM SEGMENT PRODUCER Gender Identity Not on file Sexual Orientation Not on file documented as of this encounter Plan of Treatment Not on file documented as of this encounter Visit Diagnoses Diagnosis Other and unspecified disc disorder of lumbar region- Primary documented in this encounter Care Teams Nuclear Design Engineer Relationship Specialty Start Date End Date Jayesh Krueger MD [address] [place] [address] PCP - General Internal Medicine 12/19/16 documented as of this encounter
--- OUTSIDE RECORDS SUMMARY | 2025-02-06 15:51 | XMS_ITS | Patient Health Record ---
Author Organization [facility] Address [address] [place] [address] Care Team Providers Care Bonding Machine Setter Name Role Phone Carter Yusuf Primary Care Provider Sam Tomlinson [phone] Allergies Allergen (clinical drug ingredient) Drug/Non Drug Allergy documented on EMR Reaction Allergy Type Onset Date Status Zestril (lisinopril) Unknown Drug Allergy Active Zithromax (azithromycin) Unknown Drug Allergy Active Reason For Referral No Information Medications Medication SIG (Take, Route, Frequency, Duration) Notes Start Date End Date Status lamoTRIgine 100 MG Tablet 1 tablet Oral twice a day; Duration: 7 Active Folbic 2.5-25-2 MG Tablet 1 tablet Oral Once a day; Duration: 90 Active Atorvastatin Calcium 20 MG Tablet 1 tablet Oral Once a day; Duration: 90 Active Potassium Chloride ER 20 MEQ Tablet Extended Release TK 1 T PO D Oral; Duration: 7 Active Glimepiride 4 MG Tablet 1 tablet Oral tw ice daily; Duration: 30 Active Reglan 10 MG Tablet 1 tablet Orally once ; Duration: 1 days 08/15/2021 Active Levothyroxine Sodium 200 MCG Tablet 1 tablet in the morning on an empty stomach Oral; Duration: 90 Active QUEtiapine Fumarate 100 MG Tablet TAKE 1-2 TABLETS PO QHS Oral; Duration: 90 Active DULoxetine HCl 60 MG Capsule Delayed Release Particles take 2 capsules Oral every morning; Duration: 90 Active diazePAM 10 MG Tablet 1 tablet as needed Oral; Duration: 30 Active Propranolol HCl 80 MG Tablet 1 tablet Or al Twice a day; Duration: 90 Active metFORMIN HCl 1000 MG Tablet 1 tablet Or ally twice a day; Duration: 30 day(s) Active Topiramate 100 MG Tablet 1 tablet Oral O nce a day; Duration: 90 Active Nortriptyline HCl 25 MG Capsule 1 capsule Orally Once a day Active Cyclobenzaprine HCl 10 MG Tablet Oral; Duration: 30 Active Social History Tobacco Use: Social History Observation Description Date Details (start date - stop date) Never Smoker NA - NA Social History Drugs/Alcohol: Social Info Question Answer Notes Alcohol Screen (Audit-C) Did you have a drink containing alcohol in the past year? No Points 0 Interpretation Negative Tobacco Use: Social Info Question Answer Notes xTobacco Use/Smoking Are you a nonsmoker Problems Problem Type SNOMED Code ICD Code Onset Dates Problem Status W/U Status Risk Notes Problem Dysphagia (37928341) Dysphagia, unspecified (R13.10) Active confirmed Problem Dysphagia (76577207) Dysphagia, unspecified type (R13.10) Active confirmed Problem Steatorrhea (98385232) Steatorrhea (K90.9) Active confirmed Problem History of adenomatous polyp of colon (666018000) History of adenomatous polyp of colon (Z86.010) Active confirmed Problem History of adenomatous polyp of colon (953789461) Hx of adenomatous polyp of colon (Z86.010) Active confirmed Problem Atrophic gastritis (75933301) Mild chronic gastritis (K29.50) Active confirmed Problem Gastroesophageal reflux disease (347383577) Gastroesophagea l reflux disease, unspecified whether esophagitis present (K21.9) Active confirmed Problem Atherosclerotic heart disease of [place] coronary artery without angina pectoris (250348627209722) Atherosclerotic heart disease of [place] coronary artery without angina pectoris (I25.10) Active confirmed [id number] med Description:Cor onary arteriosclerosi s Problem Gastro-esophageal reflux disease without esophagitis (513951928) Gastro-esophage al reflux disease without esophagitis (K21.9) Active confirmed [id number] med Description:Gas troesophageal reflux disease Problem Chest pain (67905045) Chest pain, unspecified (R07.9) Active confirmed Qvs-9160033-Kso med Description:Cherise st pain Problem Dyspareunia (99244762) Dyspareunia (625.0) 2004 Problem resolved confirmed Sarwat-952162- Problem Hypercholesterole [place] (61331889) Hypercholestero lemia (272.0) 2004 Problem resolved confirmed [id number]- Problem Late effects of cerebrovascular disease (677526654) Old CVA (438.9) 2004 Problem resolved confirmed Sarwat-730425- Problem Acquired hypothyroidism (318222989) Acquired hypothyroidism (244.8) 2004 Problem resolved confirmed Sarwat-210824- Problem Diabetes mellitus type 2 (disorder) (75855485) Type 2 diabetes (250.00) 2004 Problem resolved confirmed [id number]- Plan Of Treatment Pending Test Test Name Order Date Culture Stool 63360, 11488, 17589, 93501 , 47203 08/15/2021 Giardia/Cryptosporidium Screen 12591, 87 329 08/15/2021 Fecal Leukocyte 47818 08/15/2021 CDiff PCR Rfx C diff Toxin NAP/EPI 94082 , 58990 08/15/2021 Calprotectin Fecal 21103 08/15/2021 Pancreatic Elastase Fecal--45961 022 Diagnostic Colonoscopy-63744 08/15/2021 EGD, Upper GI Diagnostic-49804 2 Insurance Providers Payer Name Payer Address Payer Phone Subscriber Number Group Number Insured Name Patient Relationship to Insured Coverage Start Date Coverage End Date [place] [address] [place] [phone] [id number] Kaylee Ch Self - patient is the insured [facility] [address] [address] [place] [address] [id number] Kaylee Ch Self - patient is the insured Medical (General) History Medical History History ICD Code Cerebrovascular Accident: x 1; Anxiety Arthritis Bilateral cataracts Depression Diabetes mellitus Fibromyalgia Gastroesophageal reflux disease Hyperlipidemia Hypothyroidism Polyp of colon Steatosis of liver bipolar Surgical History Surgery Date(Month/Year) right broken hand left broken foot left knee arthroscopy endometrial surgery neck titanium plate and screws lower back surgery hysterectomy total cholecystectomy appendectomy right shoulder replacement Hospitalization History Reason Date(Month/Year) see surgery list heart attack stroke
--- OUTSIDE RECORDS SUMMARY | 2025-02-06 15:51 | XMS_ITS | Encounter Summary ---
Author Organization [facility] Address [address] [place] [address] Care Team Providers Care Cloth Shrinking Tester Name Role Phone Jayesh Krueger MD Primary Care Provider [phone] Encounter Details Date Type Department Care Team (Late st Contact Info) Description 09/06/2003 Emergency [facility] Emergency Department [address] [place] [address] Leonel Basurto DO NO ADDRESS ON FILE TRANSIENT CEREBRAL ISCHEMIA NOS (Primary Dx) Social History Tobacco Use Types Packs/Day Years Used Date Smoking Tobacco: Never Assessed Comments Unknown Sex and Gender Information Value Date Recorded Sex Assigned at Not on file Legal Sex Female 5:34 AM HORSE STUD WORKER Gender Identity Not on file Sexual Orientation Not on file documented as of this encounter Plan of Treatment Not on file documented as of this encounter Visit Diagnoses Diagnosis Unspecified transient cerebral ischemia- Primary documented in this encounter Care Teams Cloth Shrinking Tester Relationship Specialty Start Date End Date Jayesh Krueger MD [address] [place] [address] PCP - General Internal Medicine 12/19/16 documented as of this encounter
--- OUTSIDE RECORDS SUMMARY | 2025-02-06 15:51 | XMS_ITS | Clinical Summary ---
Author Organization [facility] Address [address] [place] [address] Care Team Providers Care Occupational Therapy Supervisor Name Role Phone Jayesh Krueger MD Primary Care Provider Allergies Active Allergy Reactions Criticality Noted Date [...] on file Legal Sex Female 12:52 AM EXHAUST EQUIPMENT OPERATOR Gender Identity Not on file Sexual Orientation [...] Screening 08/28/2026 Medical Devices Implanted Type Area Commodity Manager Device Identifier Shelf Expiration Date Model / Serial / Lot Cement Palacos Sgl [id number] - [id number] Implanted:Qty: 1 on 04/02/2013 Cement Left: Knee [employer] 11/05/2017 00-1112-14 0- / / [id number] Bearing Ruthie Mathew Md Sz 5 [id number] - [id number] Implanted:Qty: 1 on 04/02/2013 Knee Left: Knee [employer] 07/08/2016 [id number] / / [id number] Tray Tib [place] Uni Szb Lm [id number] - [id number] Implanted:Qty: 1 on 04/02/2013 Knee Left: Knee [employer] 07/08/2022 [id number] / / [id number] [place] Partial Knee System, Cemented Twin Pegged Femoral Implanted:Qty: 1 on 04/02/2013 by Jean-Paul Kirkland MD Left: Knee [employer] 10/06/2022 [id number] / / [id number] Insurance MEDICARE PART A AND B [facility] Care Teams Occupational Therapy Supervisor Relationship Specialty Start Date End Date Jayesh Krueger MD [address] [place] [address] PCP - General 10/21/20
--- OUTSIDE RECORDS SUMMARY | 2025-02-06 15:51 | XMS_ITS | Clinical Summary ---
Author Organization [facility] Address [address] [facility] [place] [address] Care Team Providers Care Knocker Out Name Role Phone Jayesh Kruegre MD Primary Care Provider [phone] Allergies Active Allergy Reactions Criticality Noted Date [...] on file Legal Sex Female 5:34 AM SENIOR CARE MANAGER Gender Identity Not on file Sexual Orientation Not on file Occupation Industry Job Start Date Job End Date Not on file Not on file Not on file Not on file Last Filed Vital Signs Vital Sign Reading Time Taken Comments Blood Pressure 136/76 04/30/2020 8:37 AM CDT Pulse 72 04/30/2020 8:37 AM CDT Temperature 36.4 C (97.5 F) 06/10/2013 9:02 AM SENIOR CARE MANAGER Respiratory Rate 11 06/10/2013 4:00 PM SENIOR CARE MANAGER Oxygen Saturation 95% 06/10/2013 4:00 PM SENIOR CARE MANAGER Inhaled Oxygen Concentration - - Weight 85.3 [...] 2025 05/12/2013 Medical Devices Implanted Type Area Pot Press Operator Device Identifier Shelf Expiration Date Model / Serial / Lot Cement Palacos Sgl [id number] - [id number] Implanted:Qty: 1 on 04/02/2013 at [facility] Cement Left: Knee [employer] 11/05/2017 00-1112-14 0- / / [id number] Tray Tib [place] Uni Szb Lm [id number] - [id number] Implanted:Qty: 1 on 04/02/2013 at [facility] Knee Left: Knee [employer] 07/08/2022 [id number] / / [id number] Bearing Ruthie Mathew Md Sz 5 [id number] - [id number] Implanted:Qty: 1 on 04/02/2013 at [facility] Knee Left: Knee [employer] 07/08/2016 [id number] / / [id number] [place] Partial Knee System, Cemented Twin Pegged Femoral Implanted:Qty: 1 on 04/02/2013 by Jean-Paul Kirkland MD at [facility] Left: Knee [employer] 10/06/2022 [id number] / / [id number] Procedures Procedure Name Priority Date/Time Associated Diagnosis [...] 9:15 AM CDT) MICROALBUMIN, URINE 0.2 mg/dL [facility] Comment: Unable to flag abnormal result(s), please refer to reference range(s) below: Reference Range: Not established Creatinine, Urine 37.9 20 - 320 mg/dL [facility] MICROALBUMIN/CREA T RATIO, UR 5 <30.0 mcg/mg Cr [facility] Comment: The ADA (Diabetes Care 26: S94-S98, 2003) defines abnormalities in albumin excretion as follows: Category Result (mcg/mg creatinine) Normal <30 Microalbuminuria 30-299 Clinical albuminuria > or = 300 The ADA recommends that at least two of three specimens collected within a 3-6 month period be abnormal before considering a patient to be within a diagnostic category. Test Performed by [employer] [employer] [facility], [address] [place] [address] Leonel Jarquin M.D., Ph.D., Director of Laboratories , CLIA [id number] 12/13/2009 9:15 AM CDT 12/13/2009 10:51 AM CDT Comment:URINE us Brice VARGAS URINE ORDERABLES Final Resul t Performing Organization Address [facility] Phone Number INTERFACE SYSTEM Refer to clinic/hospital department [facility] CLIA# [id number] [facility] [place] [address] * (ABNORMAL) HEMOGLOBIN A1C (12/13/2009 9:12 AM CDT) HEMOGLOBIN A1C 7.7(H) 4.0 - 6.0 %A1C [facility] Blood specimen (specimen) 12/13/2009 9:12 AM CDT 12/13/2009 9:26 AM CDT us Brice VARGAS CHEMISTRY ORDERABLES Final R esult Performing Organization Address [facility] Phone Number INTERFACE SYSTEM Refer to clinic/hospital department [facility] CLIA# [id number] [address] [place] [address] * (ABNORMAL) LIPID PANEL (12/13/2009 9:12 AM CDT) CHOLESTEROL 121 0 - 200 mg/dL [facility] TRIGLYCERIDE 291(H) 0 - 150 mg/dL [facility] HDL 16(L) 40 - 60 mg/dL [facility] LDL CALCULATED 47 0 - 100 mg/dL [facility] Comment: Calculated LDL Reference: <100 Optimal 100-129 Near Optimal 130-159 Borderline High >160 High Risk CALCULATED TOTAL CHOLESTEROL TO HDL RATIO 7.56(H) 3.27 - 4.44 [facility] Blood specimen (specimen) 12/13/2009 9:12 AM CDT 12/13/2009 9:26 AM CDT Brice VARGAS CHEMISTRY ORDERABLES Edited INTERFACE SYSTEM Refer to clinic/hospital department [facility] CLIA# [id number] [facility] [place] [address] from Last 3 Months or Most Recently Relevant to [place] [address] MEDICARE PART A AND B [employer] Advance Directives For more information, please contact: [phone] * Full Code (Latest Code Status on File) Date Activated Date Inactivated Comments 04/02/2013 10:34 AM 04/03/2013 5:21 PM * Full Code Date Activated Date Inactivated Comments 04/02/2013 6:45 AM 04/02/2013 10:34 AM Care Teams Knocker Out Relationship Specialty Start Date End Date Jayesh Krueger MD [address] [place] [address] PCP - General Internal Medicine 12/19/16
--- OUTSIDE RECORDS SUMMARY | 2025-02-06 15:51 | XMS_ITS | Encounter Summary ---
Author Organization [facility] Address [address] [place] [address] Care Team Providers Care Lime Filter Operator Name Role Phone Jayesh Krueger MD Primary Care Provider [phone] Encounter Details Date Type Department Care Team (Late st Contact Info) Description 09/01/1999 Outpatient Historical [facility] Cardiac Thoracic Vascular Surg [place] [address] [place] [address] Social History Tobacco Use Types Packs/Day Years Used Date Smoking Tobacco: Never Assessed Comments Unknown Sex and Gender Information Value Date Recorded Sex Assigned at Not on file Legal Sex Female 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
--- OUTSIDE RECORDS SUMMARY | 2025-02-06 15:51 | XMS_ITS | Encounter Summary ---
Author Organization [facility] Address [address] [place] [address] Care Team Providers Care Trace Evidence Technician Name Role Phone Jayesh Krueger MD Primary Care Provider [phone] Encounter Details Date Type Department Care Team (Latest Contact Info) Description 11/11/2002 Outpatient Historical [facility] Thomas Dailey MD [address] [place] [address] LUMBAGO (Primary Dx) Social History Tobacco Use Types Packs/Day Years Used Date Smoking Tobacco: Never Assessed Comments Unknown Sex and Gender Information Value Date Recorded Sex Assigned at Not on file Legal Sex Female 5:34 AM EVP BUSINESS DEVELOPMENT Gender Identity Not on file Sexual Orientation Not on file documented as of this encounter Plan of Treatment Not on file documented as of this encounter Visit Diagnoses Diagnosis Lumbago- Primary documented in this encounter Care Teams Trace Evidence Technician Relationship Specialty Start Date End Date Jayesh Krueger MD [address] [place] [address] PCP - General Internal Medicine 12/19/16 documented as of this encounter
--- OUTSIDE RECORDS SUMMARY | 2025-02-06 15:51 | XMS_ITS | Encounter Summary ---
Author Organization [facility] Address [address] [place] [address] Care Team Providers Care Certified Maintenance Welder Name Role Phone Jayesh Krueger MD Primary Care Provider [phone] Encounter Details Date Type Department Care Team (Late st Contact Info) Description 01/05/2003 Outpatient Historical [facility] Thomas Dailey MD [address] [place] [address] LUMBAGO (Primary Dx) Social History Tobacco Use Types Packs/Day Years Used Date Smoking Tobacco: Never Assessed Comments Unknown Sex and Gender Information Value Date Recorded Sex Assigned at Not on file Legal Sex Female 5:34 AM PRUNER Gender Identity Not on file Sexual Orientation Not on file documented as of this encounter Plan of Treatment Not on file documented as of this encounter Visit Diagnoses Diagnosis Lumbago- Primary documented in this encounter Care Teams Certified Maintenance Welder Relationship Specialty Start Date End Date Jayesh Krueger MD [address] [place] [address] PCP - General Internal Medicine 12/19/16 documented as of this encounter
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
--- OUTSIDE RECORDS SUMMARY | 2025-02-06 15:51 | XMS_ITS | Encounter Summary ---
Author Organization [facility] Address [address] Attn: Epic Prelude ADT JODY SHAHID [address] Care Team Providers Care Drafter Cartographic Name Role Phone Jayesh Krueger MD Primary Care Provider [phone] Encounter Details Date Type Department Care Team (Late st Contact Info) Description 06/20/2000 Outpatient Historical Non-Staff, Physician NO ADDRESS ON FILE Social History Tobacco Use Types Packs/Day Years Used Date Smoking Tobacco: Never Assessed Comments Unknown Sex and Gender Information Value Date Recorded Sex Assigned at Not on file Legal Sex 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
--- OUTSIDE RECORDS SUMMARY | 2025-02-06 15:51 | XMS_ITS | Encounter Summary ---
Author Organization [facility] Address [address] [facility] Attn: [place] [address] Care Team Providers Care Online Publisher Name Role Phone Jayesh Krueger MD Primary Care Provider [phone] Encounter Details Date Type Department Care Team (Late st Contact Info) Description 04/13/2000 Inpatient Historical Thomas Dailey MD [address] 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
--- OUTSIDE RECORDS SUMMARY | 2025-02-06 15:51 | XMS_ITS | Encounter Summary ---
Author Organization [facility] Address [address] [facility] Attn: Epic Prelude ADT JODY SHAHID [address] Care Team Providers Care Medical Advisor Name Role Phone Jayesh Krueger MD Primary Care Provider [phone] Encounter Details Date Type Department Care Team (Late st Contact Info) Description 02/06/2001 Outpatient Historical Sotero Ortiz MD NO ADDRESS ON FILE Social History Tobacco Use Types Packs/Day Years Used Date Smoking Tobacco: Never Assessed Comments Unknown Sex and Gender Information Value Date Recorded Sex Assigned at Not on file Legal Sex Female 5:34 AM PLUG ASSEMBLER Gender Identity Not on file Sexual Orientation Not on file documented as of this encounter Plan of Treatment Not on file documented as of this encounter Visit Diagnoses Not on filedocumented in this encounter Care Teams Medical Advisor Relationship Specialty Start Date End Date Jayesh Krueger MD [address] [place] [address] PCP - General Internal Medicine 12/19/16 documented as of this encounter
--- OUTSIDE RECORDS SUMMARY | 2025-02-06 15:51 | XMS_ITS | Encounter Summary ---
Author Organization [facility] Address [address] [facility] Attn: [place] [address] Care Team Providers Care Supervisor Paste Mixing Name Role Phone Jayesh Krueger MD Primary Care Provider [phone] Encounter Details Date Type Department Care Team (Late st Contact Info) Description 05/24/2000 Outpatient Historical Thomas Dailey MD [address] 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
--- OUTSIDE RECORDS SUMMARY | 2025-02-06 15:51 | XMS_ITS | Encounter Summary ---
Author Organization [facility] Address [address] [place] [address] Care Team Providers Care Brine Process Operator Name Role Phone Jayesh Krueger MD Primary Care Provider [phone] Encounter Details Date Type Department Care Team (Latest Contact Info) Description 03/20/2006 Outpatient Historical [facility] [place] [address] [address] [place], [place] [address] 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
--- OUTSIDE RECORDS SUMMARY | 2025-02-06 15:51 | XMS_ITS | Encounter Summary ---
Author Organization [facility] Address [address] [place] [address] Care Team Providers Care Field Enumerator Name Role Phone Jayesh Krueger MD Primary Care Provider [phone] Encounter Details Date Type Department Care Team (Late st Contact Info) Description 10/25/1999 Outpatient Historical [facility] Social History Tobacco Use Types Packs/Day Years Used Date Smoking Tobacco: Never Assessed Comments Unknown Sex and Gender Information Value Date Recorded Sex Assigned at Not on file Legal Sex Female 5:34 AM CHIEF PRIVACY OFFICER Gender Identity Not on file Sexual Orientation Not on file documented as of this encounter Plan of Treatment Not on file documented as of this encounter Visit Diagnoses Not on filedocumented in this encounter Care Teams Field Enumerator Relationship Specialty Start Date End Date Jayesh Krueger MD [address] [place] [address] PCP - General Internal Medicine 12/19/16 documented as of this encounter
--- OUTSIDE RECORDS SUMMARY | 2025-02-06 15:51 | XMS_ITS | Encounter Summary ---
Author Organization [facility] Address [address] [place] [address] Care Team Providers Care Fur Ironer Name Role Phone Jayesh Krueger MD Primary Care Provider [phone] Encounter Details Date Type Department Care Team (Latest Contact Info) Description 12/25/2002 Outpatient Historical [facility] [address] [place] [address] [place] [address] Thomas Dailey MD [address] [place] [address] PREOP CARDIOVASC EXAM (Primary Dx) Social History Tobacco Use Types Packs/Day Years Used Date Smoking Tobacco: Never Assessed Comments Unknown Sex and Gender Information Value Date Recorded Sex Assigned at Not on file Legal Sex Female 5:34 AM STOCK HANDLER 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
--- OUTSIDE RECORDS SUMMARY | 2025-02-06 15:51 | XMS_ITS | Encounter Summary ---
Author Organization [facility] Address [address] [facility] Attn: [place] [address] Care Team Providers Care Guest Services Associate Name Role Phone Jayesh Krueger MD Primary Care Provider [phone] Encounter Details Date Type Department Care Team (Late st Contact Info) Description 03/05/2000 Outpatient Historical Thomas Dailey MD [address] 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
--- OUTSIDE RECORDS SUMMARY | 2025-02-06 15:51 | XMS_ITS | Encounter Summary ---
Author Organization [facility] Address [address] [facility] Attn: Epic Prelude ADT JODY SHAHID [address] Care Team Providers Care Outsole Scheduler Name Role Phone Jayesh Krueger MD Primary Care Provider [phone] Encounter Details Date Type Department Care Team (Late st Contact Info) Description 07/09/2000 Outpatient Historical Non-Staff, Physician NO ADDRESS ON FILE Social History Tobacco Use Types Packs/Day Years Used Date Smoking Tobacco: Never Assessed Comments Unknown Sex and Gender Information Value Date Recorded Sex Assigned at Not on file Legal Sex Female 5: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
--- OUTSIDE RECORDS SUMMARY | 2025-02-06 15:51 | XMS_ITS | Encounter Summary ---
Author Organization [facility] Address [address] [place] [address] Care Team Providers Care Wallpaper Inspector And Shipper Name Role Phone Jayesh Krueger MD Primary Care Provider [phone] Encounter Details Date Type Department Care Team (Latest Contact Info) Description 01/12/2003 Inpatient Historical [facility] Operating Room [address] 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
--- OUTSIDE RECORDS SUMMARY | 2025-02-06 15:51 | XMS_ITS | Encounter Summary ---
Author Organization [facility] Address [address] [place] [address] Care Team Providers Care Modern And Contemporary Art Curator Name Role Phone Jayesh Krueger MD Primary Care Provider [phone] Encounter Details Date Type Department Care Team (Latest Contact Info) Description 06/11/2000 Outpatient Historical [facility] Nasir Uriostegui MD NO ADDRESS ON FILE Headache(784.0) (Primary Dx) Social History Tobacco Use Types Packs/Day Years Used Date Smoking Tobacco: Never Assessed Comments Unknown Sex and Gender Information Value Date Recorded Sex Assigned at Not on file Legal Sex Female 5:34 AM WELLNESS COORDINATOR Gender Identity Not on file Sexual Orientation Not on file documented as of this encounter Plan of Treatment Not on file documented as of this encounter Visit Diagnoses Diagnosis Headache(784.0)- Primary Headache documented in this encounter Care Teams Modern And Contemporary Art Curator Relationship Specialty Start Date End Date Jayesh Krueger MD [address] [place] [address] PCP - General Internal Medicine 12/19/16 documented as of this encounter
--- OUTSIDE RECORDS SUMMARY | 2025-02-06 15:51 | XMS_ITS | Encounter Summary ---
Author Organization [facility] Address [address] [place] [address] Care Team Providers Care Paper Guillotine Operator Name Role Phone Jayesh Krueger MD Primary Care Provider [phone] Encounter Details Date Type Department Care Team (Latest Contact Info) Description 02/17/2003 Outpatient Historical [facility] Imaging Services [address] 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
--- OUTSIDE RECORDS SUMMARY | 2025-02-06 15:51 | XMS_ITS | Encounter Summary ---
Author Organization [facility] Address [address] [facility] Attn: [place] [address] Care Team Providers Care Communications Agent Name Role Phone Jayesh Krueger MD Primary Care Provider [phone] Encounter Details Date Type Department Care Team (Late st Contact Info) Description 01/25/2000 Outpatient Historical Thomas Dailey MD [address] [place] [address] Social History Tobacco Use Types Packs/Day Years Used Date Smoking Tobacco: Never Assessed Comments Unknown Sex and Gender Information Value Date Recorded Sex Assigned at Not on file Legal Sex Female 5:34 AM EQUITIES ANALYST Gender Identity Not on file Sexual Orientation Not on file documented as of this encounter Plan of Treatment Not on file documented as of this encounter Visit Diagnoses Not on filedocumented in this encounter Care Teams Communications Agent Relationship Specialty Start Date End Date Jayesh Krueger MD [address] [place] [address] PCP - General Internal Medicine 12/19/16 documented as of this encounter
--- OUTSIDE RECORDS SUMMARY | 2025-02-06 15:51 | XMS_ITS | Encounter Summary ---
Author Organization [facility] Address [address] [place] [address] Care Team Providers Care Rfp Writer Name Role Phone Jayesh Krueger MD Primary Care Provider [phone] Encounter Details Date Type Department Care Team (Latest Contact Info) Description 12/13/1999 Outpatient Historical [facility] Nasir Uriostegui MD NO ADDRESS ON FILE Degeneration of cervical intervertebral disc (Primary Dx) Social History Tobacco Use Types Packs/Day Years Used Date Smoking Tobacco: Never Assessed Comments Unknown Sex and Gender Information Value Date Recorded Sex Assigned at Not on file Legal Sex Female 5:34 AM CHILD CARE ATTENDANT Gender Identity Not on file Sexual Orientation Not on file documented as of this encounter Plan of Treatment Not on file documented as of this encounter Visit Diagnoses Diagnosis Degeneration of cervical intervertebral disc- Primary documented in this encounter Care Teams Rfp Writer Relationship Specialty Start Date End Date Jayesh Krueger MD [address] [place] [address] PCP - General Internal Medicine 12/19/16 documented as of this encounter
--- OUTSIDE RECORDS SUMMARY | 2025-02-06 15:51 | XMS_ITS | Encounter Summary ---
Author Organization [facility] Address [address] [place] [address] Care Team Providers Care Lumber Puller Name Role Phone Jayesh Krueger MD Primary Care Provider [phone] Encounter Details Date Type Department Care Team (Latest Contact Info) Description 12/31/2003 Outpatient Historical [facility] Endocrinology-[facility] [place] [address] [place] [address] Chin Patel MD NO ADDRESS ON FILE DIABETES UNCOMPL ADULT-TYPE II (CMS/[facility]) (Primary Dx); HYPERLIPIDEMIA NEC/NOS; HYPERTENSION NOS; HYPOTHYROIDISM NOS Social History Tobacco Use Types Packs/Day Years Used Date Smoking Tobacco: Never Assessed Comments Unknown Sex and Gender Information Value Date Recorded Sex Assigned at Not on file Legal Sex Female 5:34 AM LEATHER SPRAYER Gender Identity Not on file Sexual Orientation Not on file documented as of this encounter Plan of Treatment Not on file documented as of this encounter Visit Diagnoses Diagnosis Type II or unspecified type diabetes mellitus without mention of complication, not stated as uncontrolled- Primary Other and unspecified hyperlipidemia Unspecified essential hypertension Unspecified hypothyroidism documented in this encounter Care Teams Lumber Puller Relationship Specialty Start Date End Date Jayesh Krueger MD [address] [place] [address] PCP - General Internal Medicine 12/19/16 documented as of this encounter
--- OUTSIDE RECORDS SUMMARY | 2025-02-06 15:51 | XMS_ITS | Encounter Summary ---
Author Organization [facility] Address [address] [facility] Attn: [place] [address] Care Team Providers Care Environmental Science Technician Name Role Phone Jayesh Krueger MD Primary Care Provider [phone] Encounter Details Date Type Department Care Team (Late st Contact Info) Description 02/27/2000 Outpatient Historical Thomas Dailey MD [address] [place] [address] Social History Tobacco Use Types Packs/Day Years Used Date Smoking Tobacco: Never Assessed Comments Unknown Sex and Gender Information Value Date Recorded Sex Assigned at Not on file Legal Sex Female 5:34 AM TITLE INVESTIGATOR Gender Identity Not on file Sexual Orientation Not on file documented as of this encounter Plan of Treatment Not on file documented as of this encounter Visit Diagnoses Not on filedocumented in this encounter Care Teams Environmental Science Technician Relationship Specialty Start Date End Date Jayesh Krueger MD [address] [place] [address] PCP - General Internal Medicine 12/19/16 documented as of this encounter
--- OUTSIDE RECORDS SUMMARY | 2025-02-06 15:51 | XMS_ITS | Encounter Summary ---
Author Organization [facility] Address [address] [place] [address] Care Team Providers Care Steam Hoist Operator Name Role Phone Jayesh Krueger MD Primary Care Provider [phone] Encounter Details Date Type Department Care Team (Latest Contact Info) Description 05/03/2004 Outpatient Historical [facility] Endocrinology-[facility] [place] [address] [place] [address] Chin Patel MD NO ADDRESS ON FILE DIABETES MELLITUS TYPE II-UNCOMPL (CMS/HCC) (Primary Dx); HYPERLIPIDEMIA NEC/NOS; HYPERTENSION NOS; HYPOTHYROIDISM NOS Social History Tobacco Use Types Packs/Day Years Used Date Smoking Tobacco: Never Assessed Comments Unknown Sex and Gender Information Value Date Recorded Sex Assigned at Not on file Legal Sex Female 5:34 AM INSURANCE ASSISTANT Gender Identity Not on file Sexual Orientation Not on file documented as of this encounter Plan of Treatment Not on file documented as of this encounter Visit Diagnoses Diagnosis Type II or unspecified type diabetes mellitus without mention of complication, not stated as uncontrolled- Primary Other and unspecified hyperlipidemia Unspecified essential hypertension Unspecified hypothyroidism documented in this encounter Care Teams Steam Hoist Operator Relationship Specialty Start Date End Date Jayesh Krueger MD [address] [place] [address] PCP - General Internal Medicine 12/19/16 documented as of this encounter
--- OUTSIDE RECORDS SUMMARY | 2025-02-06 15:51 | XMS_ITS | Encounter Summary ---
Author Organization [facility] Address [address] [place] [address] Care Team Providers Care Rn Oncology Research Name Role Phone Jayesh Krueger MD Primary Care Provider [phone] Encounter Details Date Type Department Care Team (Latest Contact Info) Description 07/03/2006 Outpatient Historical [facility] Endocrinology-[facility] [place] [address] [place] [address] Chin Patel MD NO ADDRESS ON FILE DM w/o Complication Type II, Uncontrolled (Primary Dx); Other and Unspecified Hyperlipidemia; Unspecified Essential Hypertension Social History Tobacco Use Types Packs/Day Years Used Date Smoking Tobacco: Never Assessed Comments Unknown Sex and Gender Information Value Date Recorded Sex Assigned at Not on file Legal Sex Female 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
--- OUTSIDE RECORDS SUMMARY | 2025-02-06 15:51 | XMS_ITS | Encounter Summary ---
Author Organization [facility] Address [address] [place] [address] Care Team Providers Care Vehicle Care Specialist Name Role Phone Jayesh Krueger MD Primary Care Provider [phone] Encounter Details Date Type Department Care Team (Latest Contact Info) Description 11/06/2005 Outpatient Historical [facility] Endocrinology-[facility] [place] [address] [place] [address] Chin Patel MD NO ADDRESS ON FILE DM w/o Complication Type II (CMS/HCC) (Primary Dx); Other and Unspecified Hyperlipidemia; Unspecified Essential Hypertension Social History Tobacco Use Types Packs/Day Years Used Date Smoking Tobacco: Never Assessed Comments Unknown Sex and Gender Information Value Date Recorded Sex Assigned at Not on file Legal Sex Female 5:34 AM MANAGER COMBINATION Gender Identity Not on file Sexual Orientation Not on file documented as of this encounter Plan of Treatment Not on file documented as of this encounter Visit Diagnoses Diagnosis Type II or unspecified type diabetes mellitus without mention of complication, not stated as uncontrolled- Primary Other and unspecified hyperlipidemia Unspecified essential hypertension documented in this encounter Care Teams Vehicle Care Specialist Relationship Specialty Start Date End Date Jayesh Krueger MD [address] [place] [address] PCP - General Internal Medicine 12/19/16 documented as of this encounter
--- OUTSIDE RECORDS SUMMARY | 2025-02-06 15:51 | XMS_ITS | Encounter Summary ---
Author Organization [facility] Address [address] [place] [address] Care Team Providers Care Kier Tender Name Role Phone Jayesh Krueger MD Primary Care Provider Encounter Details Date Type Department Care Team (Latest Contact Info) Description 12/10/2003 Outpatient Historical [facility] Services [address] [place] [address] Thomas Dailey MD [address] [place] [address] LUMBOSACRAL NEURITIS NOS (Primary Dx) Social History Tobacco Use Types Packs/Day Years Used Date Smoking Tobacco: Never Assessed Comments Unknown Sex and Gender Information Value Date Recorded Sex Assigned at Not on file Legal Sex Female 5:34 AM TOWEL INSPECTOR Gender Identity Not on file Sexual Orientation Not on file documented as of this encounter Plan of Treatment Not on file documented as of this encounter Visit Diagnoses Diagnosis Thoracic or lumbosacral neuritis or radiculitis, unspecified- Primary documented in this encounter Care Teams Kier Tender Relationship Specialty Start Date End Date Jayesh Krueger MD [address] [place] [address] PCP - General Internal Medicine 12/19/16 documented as of this encounter
--- OUTSIDE RECORDS SUMMARY | 2025-02-06 15:51 | XMS_ITS | Encounter Summary ---
Author Organization [facility] Address [address] [place] [address] Care Team Providers Care Art Therapy Specialist Name Role Phone Jayesh Krueger MD Primary Care Provider [phone] Encounter Details Date Type Department Care Team (Late st Contact Info) Description 02/06/2001 [facility]patient [facility] [address] [place] [address] Sotero Ortiz MD NO ADDRESS ON FILE Myalgia and myositis, unspecified (Primary Dx); Headache(784.0) Social History Tobacco Use Types Packs/Day Years Used Date Smoking Tobacco: Never Assessed Comments Unknown Sex and Gender Information Value Date Recorded Sex Assigned at Not on file Legal Sex Female 5:34 AM CLINICAL DATA SPECIALIST Gender Identity Not on file Sexual Orientation Not on file documented as of this encounter Plan of Treatment Not on file documented as of this encounter Visit Diagnoses Diagnosis Myalgia and myositis, unspecified- Primary Mylagia and myositis, unspecified Headache(784.0) Headache documented in this encounter Care Teams Art Therapy Specialist Relationship Specialty Start Date End Date Jayesh Krueger MD [address] [place] [address] PCP - General Internal Medicine 12/19/16 documented as of this encounter
--- OUTSIDE RECORDS SUMMARY | 2025-02-06 15:52 | XMS_ITS | Encounter Summary ---
Author Organization [facility] Address [address] [place] [address] Care Team Providers Care Director Franchise Sales Name Role Phone Jayesh Krueger MD Primary Care Provider [phone] Encounter Details Date Type Department Care Team (Latest Contact Info) Description 07/05/2005 Outpatient Historical [facility] Imaging Services-[facility] [place] [address] [place] [address] Anthony Andrews, DPM [address] [place] [address] OTHER HAMMER TOE (Primary Dx) Social History Tobacco Use Types Packs/Day Years Used Date Smoking Tobacco: Never Assessed Comments Unknown Sex and Gender Information Value Date Recorded Sex Assigned at Not on file Legal Sex Female 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
--- NOTE | 2025-02-06 16:36 | ED_ITS ---
HPI - Extremity Problem General: Chief complaint: Extremity Injury, Lower Stated complaint: pain all over Time Seen by Provider: 02/06/25 15:42 History of Present Illness: Patient is a 69-year-old female who presents to the ED with complaints of right hip pain and inability to walk. She was recently discharged earlier today from [facility] after a 10-day hospitalization for atrial fibrillation with RVR and left great toe cellulitis with possible osteomyelitis. During that hospitalization, she was found to have a large hematoma on her right hip that required blood transfusions. Due to this hematoma, she was not started on Eliquis as initially planned for her atrial fibrillation, but instead was placed on aspirin 81mg daily with plans to increase to 325mg after one week if hemoglobin remained stable. The patient was discharged to a long term today (approximately 5 hours prior to ED presentation) due to her limited mobility. She reports dissatisfaction with the long term, stating they were unable to assist her with toileting needs and left her sitting in a chair. She requested to return to the hospital because she feels she cannot walk and believes she should not have been discharged until she could ambulate independently. She denies any falls, new injuries, or changes in her condition since discharge. Her primary concern is her inability to walk due to right hip pain from the hematoma. Related Data Home Medications ?Medication ?Instructions ?Recorded ?Confirmed ascorbic acid 7.5 mg-vit E 7.5 1 tab PO DAILY@1000 01/2602/06/25 unit-biotin 1,250 mcg chewable tablet (Hair,Skin,Nails with Biotin) multivitamin 1 tab PO DAILY@1000 11/12/20 02/06/25 cyanocobalamin (vitamin B-12) 1,000 mcg PO DAILY 01/0302/06/25 1,000 mcg tablet (Vitamin B-12) atorvastatin 20 mg tablet 20 mg PO .DAILY@10AM 5 02/06/25 cyclobenzaprine 10 mg tablet 10 mg PO TID PRN Muscle S pasm 07/18/24 02/06/25 gabapentin 100 mg capsule 100 mg PO BID 07/18/2402/06 potassium chloride 20 mEq 20 meq PO .DAILY@10AM 02/06/25 tablet,extended release lamotrigine 200 mg tablet 200 mg PO BID 12/30/2402/06 duloxetine 60 mg capsule,delayed 120 mg PO QAM 2 5 02/06/25 release fluoxetine 20 mg capsule 20 mg PO QAM 01/26/25 levothyroxine 200 mcg tablet 200 mcg PO .DAILY@10AM 02/06/25 lidocaine 5 % topical patch 1 patch topical DAILY PRN Pain 01/26/25 02/06/25 (Lidoderm) omega 2-fdl-gaf-fish oil 1,200 mg 1 cap PO DAILY 01/3002/06/25 (144 mg-216 mg) capsule (Fish Oil) Previous Rx's ?Medication ?Instructions ?Recorded insulin syringe-needle U-100 1 mL #100 ea 09/06/22 28 gauge x 1/2 (BD Insulin Syringe) Diabetic shoes #1 ea 04/11/23 blood-glucose meter #1 ea 06/12/23 blood sugar diagnostic (Blood #200 ea 06/15/23 Glucose Test strips) blood-glucose meter (Accu-Chek #1 ea 06/27/23 Guide Glucose Meter) blood sugar diagnostic (Accu-Chek #100 ea 07/26/23 Guide test strips) lancets (Accu-Chek Softclix #200 ea 09/14/23 Lancets) Diabetic Shoes with Inserts #1 ea 12/11/24 mupirocin 2 % topical ointment 1 applic topical BID 2 weeks #22 12/11/24 grams insulin syringe-needle U-100 1 mL #100 ea 01/02/25 31 gauge x 5/16 (TRUEplus Insulin) cam boot to right #1 ea 01/05/25 semaglutide 0.25 mg or 0.5 mg (2 0.5 mg (0.736 mL) SUB CUT .weekly 01/27/25 mg/3 mL) subcutaneous pen injector #3 mL (Ozempic) amiodarone 200 mg tablet (Pacerone) See Rx Instruction s .Route 02/06/25 .COMPLEX #60 tabs amlodipine 10 mg tablet 10 mg PO DAILY #30 tabs 0808/02 aspirin 81 mg tablet,delayed 81 mg PO DAILY #30 tabs 0 02/06/25 release glimepiride 4 mg tablet 2 mg (1/2 x 4 mg) PO BID #30 tabs 02/06/25 hydrocodone 5 mg-acetaminophen 325 0.5 tab PO Q8H PRN Moderate Pain 02/06/25 mg tablet #9 tabs olanzapine 5 mg tablet 2.5 mg (1/2 x 5 mg) PO BID # 30 tabs 02/06/25 quetiapine 25 mg tablet 25 mg PO BEDTIME #30 tabs sennosides 8.6 mg-docusate sodium 1 tab PO BID PRN Con stipation #30 02/06/25 50 mg tablet (Stool tabs Softener-Laxative) Allergies Allergy/AdvReac Type Severity Reaction Status Date / Time azithromycin (From Zithromax) Allergy rash Verified 01/27/25 11:18 cetirizine (From Zyrtec) Allergy rash Verified 01/27/25 11:18 lisinopril (From Zestril) Allergy ALGY-Swell Verified 01/27/25 11:18 Lip/Tongue/Throat metformin AdvReac Intermediate diarrhea Verified 01/27/25 11:18 topiramate (From Topamax) AdvReac Intermediate diarrhea Verified 01/27/25 11:18 PFSH ED PFSH: Medical History (Updated 02/06/25 @ 16:37 by Jose Craig MD) 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 Left shoulder pain Hypothyroid Hyperlipidemia Hypertension Diabetes mellitus Suspected COVID-19 virus infection Hypothyroidism Chronic diarrhea Tension headache, chronic CVA (cerebral vascular accident) TIA (transient ischemic attack) History of aphasia Hx of kidney disease Hx of type 2 diabetes mellitus History of anemia History of GI bleed History of hypothyroidism Hx of primary hypertension History of bipolar disorder History of anxiety History of depression History of posttraumatic stress disorder (PTSD) Surgical History Hx of appendectomy History of back surgery Hx of cholecystectomy Hx of hysterectomy Hx of neck surgery Social History Smoking and tobacco/nicotine status: never used tobacco/nicotine Alcohol intake: current Alcohol intake frequency: holidays/special occasions only Substance/Drug Use: never Physical Exam Narrative: EXAM NARRATIVE: General: Alert, non-toxic appearing, in no apparent distress HEENT: Head normocephalic and atraumatic. Mucous membranes moist. Neck: Supple Respiratory: No increased work of breathing, no wheezing Cardiac: Regular rate and rhythm, 2+ pulses in all extremities Abdomen: Soft, non-distended, no rebound or guarding Musculoskeletal: Right hip with visible hematoma, tender to palpation. Limited range of motion due to pain. Left great toe with surgical wound, xeroform dressing in place, sutures intact. No surrounding erythema or signs of infection. Vascular: palpable pulses noted in bilateral feet Neuro: Cranial nerves grossly intact, no focal motor or sensory deficits noted. Course Vital Signs: Vital signs: Vital Signs Temperature 97.9 F 02/06/25 15:41 Pulse Rate 68 02/06/25 15:41 Respiratory Rate 18 02/06/25 15:41 Blood Pressure 144/68 02/06/25 15:41 Pulse Oximetry 97 02/06/25 15:41 Oxygen Delivery Me thod Room Air 02/06/25 15:41 MDM - Extremity (Nontraumatic) Medical Decision Making ROS: Constitutional: Denies fever, chills. Cardiovascular: Denies chest pain, palpitations. History of recent A-fib with RVR that was controlled during hospitalization. Musculoskeletal: Complains of right hip pain. Limited mobility. Neurological: Denies new weakness, numbness, or tingling. Integumentary: Left great toe with recent surgical intervention. Denies new skin changes. MEDICATIONS AND ALLERGIES: Medications: - Aspirin 81mg daily (recently started) - Ciprofloxacin (for pseudomonas infection of left great toe) - Likely on medications for diabetes, hypertension, and hyperlipidemia (specific details not provided) PAST HISTORICAL DATA: PMH: - Type 2 diabetes mellitus - Hypertension - Hyperlipidemia - History of TIA - Recent atrial fibrillation with RVR PSH: - Recent procedure on left great toe Social History: - Lives at home with family support (brother, nephew, and niece) - Primary care physician is Dr. Banegas VITAL SIGNS: BP: 140/60 mmHg HR: 70 bpm O2 Sat: Within normal limits (specific value not provided) Patient does not require supplemental oxygen INITIAL IMPRESSION AND PLAN: Given the history and presentation, the primary working diagnosis is right hip hematoma with associated pain and mobility limitations. Additional considerations include post-hospitalization weakness, deconditioning, and inadequate pain control. Based on this initial impression I will: 1. Perform a thorough physical examination to assess the right hip hematoma and left great toe wound 2. Review recent hospital records to understand the full context of her recent admission 3. Consult with social work regarding long term placement options 4. Assess for any new medical issues that would warrant readmission CONSIDERED BUT NOT PERFORMED: Hospital readmission CONSIDERED but NOT DONE due to no acute medical issues requiring inpatient level of care. Patient's mobility issues and need for physical therapy can be appropriately managed in a residential facility. FINAL IMPRESSION: Based on all the above, my clinical impression is most compatible with right hip hematoma with associated pain and mobility limitations in a patient with recent hospitalization for atrial fibrillation and left great toe infection. The clinical picture is not currently suggestive of acute stroke, new infection, atrial fibrillation with rapid ventricular response, or deep vein thrombosis. Although other conditions were also considered, they were deemed unlikely based on the clinical information available. CLINICAL DISPOSITION: The patient's current condition is stable in my estimation and the most appropriate and indicated disposition at this time is discharge back to the long term ([facility]). The patient does not require hospital admission as there are no acute medical issues requiring inpatient level of care. Her primary issues are mobility limitations and need for physical therapy, which are appropriately managed in a residential facility. Her vital signs are stable, and examination of her left great toe wound shows appropriate healing without signs of infection. The right hip hematoma is a known issue from her recent hospitalization that will require time to heal. Social work has been consulted and has advised that transfer to a different long term would need to be facilitated through her current long term placement. The patient was informed that she is her own power of divorce attorney and can choose her discharge destination, but hospital admission is not medically indicated at this time. RISK STRATIFICATION AND CLINICAL DECISION RULES APPLIED: No formal clinical decision rules were applied in this case as the patient's presentation did not warrant specific risk stratification tools. CASE SUMMARY: 69-year-old female with history of diabetes, hypertension, hyperlipidemia, and recent TIA who was recently discharged from a 10-day hospitalization for atrial fibrillation with RVR and left great toe infection. During that hospitalization, she developed a large right hip hematoma requiring blood transfusions, which prevented anticoagulation with Eliquis for her atrial fibrillation. She was instead placed on aspirin 81mg daily. The patient was discharged to a long term earlier today due to mobility limitations but returned to the ED approximately 5 hours later expressing dissatisfaction with the long term care and inability to walk. Physical examination revealed stable vital signs, a healing left great toe wound without signs of infection, and a right hip hematoma with associated pain and limited mobility. After consultation with social work, it was determined that hospital readmission was not medically indicated as her needs could be appropriately addressed in a residential facility. The patient was informed that transfer to a different long term would need to be facilitated through her current placement. The patient and family were counseled on the plan, with family agreeing that long term placement was appropriate given her limited mobility. No radiology studies performed this visit Discharge Plan Discharge Patient Disposition: Home Clinical Impression: Weakness, Hematoma of right thigh, Unable to ambulate Condition: Stable Prescriptions: No Action (DME) cam boot to right See Rx Instructions .Route .MEDSUPPLY Qty: 1 0RF Rx Instructions: As directed lamotrigine 200 mg tablet 200 mg PO BID (DME) Diabetic shoes See Rx Instructions .Route .MEDSUPPLY Qty: 1 0RF Rx Instructions: Heel lift and insoles. Last HgbA1C 5.7 on 02/01. mupirocin 2 % ointment 1 applic topical BID 14 Days Qty: 22 1RF (DME) Diabetic Shoes with Inserts See Rx Instructions .Route .MEDSUPPLY Qty: 1 0RF Rx Instructions: As directed (DME) insulin syringe-needle U-100 [BD Insulin Syringe] 1 mL 28 gauge x 1/2 syringe See Rx Instructions .Route Qty: 100 11RF Rx Instructions: As directed (DME) blood-glucose meter Misc See Rx Instructions .MEDSUPPLY Qty: 1 0RF Rx Instructions: Check TID (DME) Blood Glucose Test Strip See Rx Instructions .MEDSUPPLY Qty: 200 12RF Rx Instructions: Use with glucometer to check blood sugar three times a day (DME) blood-glucose meter [Accu-Chek Guide Glucose Meter] Misc See Rx Instructions .Route Qty: 1 0RF Rx Instructions: As directed (DME) Accu-Chek Guide test strips Strip See Rx Instructions .Route Qty: 100 11RF Rx Instructions: check TID (DME) lancets [Accu-Chek Softclix Lancets] Misc See Rx Instructions .Route Qty: 200 11RF Rx Instructions: use as directed three times a day (DME) insulin syringe-needle U-100 [TRUEplus Insulin] 1 mL 31 gauge x 5/16 syringe See Rx Instructions .ROUTE .COMPLEX Qty: 100 3RF Dose Instruction: TO USE WITH LANTUS Rx Instructions: TO USE WITH LANTUS Ozempic 0.25 mg or 0.5 mg (2 mg/3 mL) pen injector 0.5 mg SUBCUT .weekly Qty: 3 11RF Rx Instructions: Sunday multivitamin Tablet 1 tab PO DAILY@1000 Hair, Skin, Nails with Biotin 7.5-7.5-1,250 mg-unit-mcg Tablet,Chewable 1 tab PO DAILY@1000 cyanocobalamin (vitamin B-12) [Vitamin B-12] 1,000 mcg Tablet 1,000 mcg PO DAILY cyclobenzaprine 10 mg tablet 10 mg PO TID PRN (Reason: Muscle Spasm) atorvastatin 20 mg tablet 20 mg PO .DAILY@10AM gabapentin 100 mg capsule 100 mg PO BID potassium chloride 20 mEq tablet extended release 20 meq PO .DAILY@10AM fluoxetine 20 mg capsule 20 mg PO QAM duloxetine 60 mg capsule,delayed release(DR/EC) 120 mg PO QAM lidocaine [Lidoderm] 5 % adhesive patch,medicated 1 patch topical DAILY PRN (Reason: Pain) Rx Instructions: leave on most painful area for up to 12 hrs then take off levothyroxine 200 mcg tablet 200 mcg PO .DAILY@10AM omega 6-lbd-hjr-fish oil [Fish Oil] 1,200 (144-216) mg Capsule 1 cap PO DAILY amiodarone [Pacerone] 200 mg Tablet See Rx Instructions .ROUTE .COMPLEX Qty: 60 0RF Rx Instructions: Take 400 mg by mouth daily for 7 days then reduce dose to 200 mg daily. aspirin 81 mg Tablet,Delayed Release (Dr/Ec) 81 mg PO DAILY Qty: 30 0RF hydrocodone-acetaminophen 5-325 mg Tablet 0.5 tab PO Q8H PRN (Reason: Moderate Pain) Qty: 9 0RF glimepiride 4 mg tablet 2 mg PO BID Qty: 30 0RF quetiapine 25 mg Tablet 25 mg PO BEDTIME Qty: 30 0RF sennosides-docusate sodium [Stool Softener-Laxative] 8.6-50 mg Tablet 1 tab PO BID PRN (Reason: Constipation) Qty: 30 0RF olanzapine 5 mg Tablet 2.5 mg PO BID Qty: 30 0RF amlodipine 10 mg tablet 10 mg PO DAILY Qty: 30 0RF Discharge Orders: Discharge ED (Routine); Ordered 02/06/25 Ordered By: Jose Craig Referrals: Carter Yusuf MD [Primary Care Provider, Family Practice] Patient Instructions: Weakness (ED), Opioid Safety, Pain Management, Patient Portal & Brianna Instructions Activity Restrictions/Additional Instructions: 1. Return to [facility] for continued care and physical therapy. 2. Follow up with your primary care physician, Dr. Yusuf, within 1 week. Please have someone call the office on Sunday to schedule an appointment. 3. Continue all medications as prescribed during your hospital stay, including: - Aspirin 81mg daily - Ciprofloxacin for your toe infection - Your regular medications for diabetes, blood pressure, and cholesterol 4. While at the long term, participate in physical therapy as recommended to improve your mobility. 5. Keep your left toe wound clean and dry. The long term staff will assist with wound care. 6. Return to the Emergency Department immediately if you experience: - Increased pain, redness, swelling, or drainage from your toe wound - Sudden worsening of right hip pain or significant increase in swelling - Chest pain, shortness of breath, or palpitations - Sudden weakness, numbness, difficulty speaking, or confusion - Fever greater than 101?F 7. If you wish to transfer to a different long term, discuss this with the social problems specialist at [facility] who can help facilitate this process. Print Language: Hebrew Coding Level of Care Code ED Stogy Roller for Jaret Deal
[2025-02-06 17:19] VITALS: BP 159/75; PULSE 68; O2SAT 98
== END 2025-02-06 17:21 | disposition home or self-care (01) ==
PROVIDERS: Emergency Provider Student in an Organized Health Care Education/Training Program; PCP Family Medicine
DX: R53.1 Weakness (principal); S70.11XA Contusion of right thigh, initial encounter; R26.2 Difficulty in walking, not elsewhere classified; Z79.4 Long term (current) use of insulin; Z79.82 Long term (current) use of aspirin; E11.9 Type 2 diabetes mellitus without complications; I10 Essential (primary) hypertension; Z86.73 Personal history of transient ischemic attack (TIA), and cerebral infarction without residual deficits; X58.XXXA Exposure to other specified factors, initial encounter
CPT/HCPCS: 99282

== ENCOUNTER 2025-02-10 09:55 | Emergency (ER) | payer MEDICARE, OTHER, SELFPAY ==
[2025-02-10 09:56] VITALS: BP 169/66; PULSE 79; RESP 16; TEMP 37.1; O2SAT 98; BMI 40.3
--- OUTSIDE RECORDS SUMMARY | 2025-02-10 10:03 | XMS_ITS | Encounter Summary ---
Author Organization [facility] Address [address] [place] [address] Care Team Providers Care Communication Clerk Name Role Phone Jayesh Krueger MD Primary Care Provider [phone] Encounter Details Date Type Department Care Team (Latest Contact Info) Description 01/12/2003 Inpatient Historical [facility] Operating Room [address] 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
--- OUTSIDE RECORDS SUMMARY | 2025-02-10 10:03 | XMS_ITS | Encounter Summary ---
Author Organization 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
--- OUTSIDE RECORDS SUMMARY | 2025-02-10 10:03 | XMS_ITS | Encounter Summary ---
Author Organization 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
--- OUTSIDE RECORDS SUMMARY | 2025-02-10 10:03 | XMS_ITS | Encounter Summary ---
Author Organization [facility] Address [address] [facility] Attn: [place] [address] Care Team Providers Care Monorail Car Operator Name Role Phone Jayesh Krueger MD Primary Care Provider [phone] Encounter Details Date Type Department Care Team (Late st Contact Info) Description 05/24/2000 Outpatient Historical Thomas Dailey MD [address] 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
--- OUTSIDE RECORDS SUMMARY | 2025-02-10 10:03 | XMS_ITS | Encounter Summary ---
Author Organization [facility] Address [address] [facility] Attn: [place] [address] Care Team Providers Care Radiology Physician Assistant Name Role Phone Jayesh Krueger MD Primary Care Provider [phone] Encounter Details Date Type Department Care Team (Late st Contact Info) Description 01/25/2000 Outpatient Historical Thomas Dailey MD [address] 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
--- OUTSIDE RECORDS SUMMARY | 2025-02-10 10:03 | XMS_ITS | Encounter Summary ---
Author Organization [facility] Address [address] [place] [address] Care Team Providers Care Hand Molder And Caster Name Role Phone Jayesh Krueger MD Primary Care Provider [phone] Encounter Details Date Type Department Care Team (Latest Contact Info) Description 02/17/2003 Outpatient Historical [facility] Services 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
--- OUTSIDE RECORDS SUMMARY | 2025-02-10 10:03 | XMS_ITS | Encounter Summary ---
Author Organization [facility] Address [address] [place] [address] Care Team Providers Care Older Adult Social Work Specialist Name Role Phone Jayesh Krueger MD Primary Care Provider [phone] Encounter Details Date Type Department Care Team (Latest Contact Info) Description 07/05/2005 Outpatient [facility] Podiatry-Rajesh Cleary [place] [address] [place] [address] Anthony Andrews, DPM [address] [place] [address] OTHER HAMMER TOE (Primary Dx); PERIPH VASCULAR DIS NOS; DIABETES TYPE II W NEURO MANIFESTATIONS (CMS/HCC) Social History Tobacco Use Types Packs/Day Years Used Date Smoking Tobacco: Never Assessed Comments Unknown Sex and Gender Information Value Date Recorded Sex Assigned at Not on file Legal Sex Female 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
--- OUTSIDE RECORDS SUMMARY | 2025-02-10 10:03 | XMS_ITS | Encounter Summary ---
Author Organization [facility] Address [address] [place] [address] Care Team Providers Care Pc Tech Name Role Phone Jayesh Krueger MD Primary Care Provider Encounter Details Date Type Department Care Team (Latest Contact Info) Description 12/10/2003 Outpatient Historical [facility] [address] [place] [address] Thomas Dailey MD [address] [place] [address] LUMBOSACRAL NEURITIS NOS (Primary Dx) Social History Tobacco Use Types Packs/Day Years Used Date Smoking Tobacco: Never Assessed Comments Unknown Sex and Gender Information Value Date Recorded Sex Assigned at Not on file Legal Sex Female 5:34 AM ART DIRECTOR Gender Identity Not on file Sexual Orientation Not on file documented as of this encounter Plan of Treatment Not on file documented as of this encounter Visit Diagnoses Diagnosis Thoracic or lumbosacral neuritis or radiculitis, unspecified- Primary documented in this encounter Care Teams Pc Tech Relationship Specialty Start Date End Date Jayesh Krueger MD [address] [place] [address] PCP - General Internal Medicine 12/19/16 documented as of this encounter
--- OUTSIDE RECORDS SUMMARY | 2025-02-10 10:03 | XMS_ITS | Encounter Summary ---
Author Organization [facility] Address [address] [place] [address] Care Team Providers Care Counter Clerk Farm Equipment Parts Name Role Phone Jayesh Krueger MD Primary Care Provider [phone] Encounter Details Date Type Department Care Team (Latest Contact Info) Description 06/11/2000 Outpatient Historical [facility] Nasir Uriostegui MD NO ADDRESS ON FILE Headache(784.0) (Primary Dx) Social History Tobacco Use Types Packs/Day Years Used Date Smoking Tobacco: Never Assessed Comments Unknown Sex and Gender Information Value Date Recorded Sex Assigned at Not on file Legal Sex Female 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
--- OUTSIDE RECORDS SUMMARY | 2025-02-10 10:03 | XMS_ITS | Encounter Summary ---
Author Organization [facility] Address [address] [facility] Attn: [place] [address] Care Team Providers Care Manager Study Name Role Phone Jayesh Krueger MD Primary Care Provider [phone] Encounter Details Date Type Department Care Team (Late st Contact Info) Description 02/27/2000 Outpatient Historical Thomas Dailey MD [address] [place] [address] Social History Tobacco Use Types Packs/Day Years Used Date Smoking Tobacco: Never Assessed Comments Unknown Sex and Gender Information Value Date Recorded Sex Assigned at Not on file Legal Sex Female 5:34 AM CRATE REPAIRER Gender Identity Not on file Sexual Orientation Not on file documented as of this encounter Plan of Treatment Not on file documented as of this encounter Visit Diagnoses Not on filedocumented in this encounter Care Teams Manager Study Relationship Specialty Start Date End Date Jayesh Krueger MD [address] [place] [address] PCP - General Internal Medicine 12/19/16 documented as of this encounter
--- OUTSIDE RECORDS SUMMARY | 2025-02-10 10:03 | XMS_ITS | Encounter Summary ---
Author Organization [facility] Address [address] [facility] Attn: Epic Prelude ADT [place] [address] Care Team Providers Care Heavy Truck Technician Name Role Phone Jayesh Krueger MD Primary Care Provider [phone] Encounter Details Date Type Department Care Team (Late st Contact Info) Description 02/06/2001 Outpatient Historical Sotero Ortiz MD NO ADDRESS ON FILE Social History Tobacco Use Types Packs/Day Years Used Date Smoking Tobacco: Never Assessed Comments Unknown Sex and Gender Information Value Date Recorded Sex Assigned at Not on file Legal Sex Female 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
--- OUTSIDE RECORDS SUMMARY | 2025-02-10 10:03 | XMS_ITS | Encounter Summary ---
Author Organization [facility] Address [address] [place] [address] Care Team Providers Care Laser Set Up Operator Name Role Phone Jayesh Krueger MD Primary Care Provider [phone] Encounter Details Date Type Department Care Team (Latest Contact Info) Description 11/27/2002 Outpatient Historical [facility] [address] [place] [id number] Thomas Dailey MD [address] [place] [address] DISC DIS NEC/NOS-LUMBAR (Primary Dx) Social History Tobacco Use Types Packs/Day Years Used Date Smoking Tobacco: Never Assessed Comments Unknown Sex and Gender Information Value Date Recorded Sex Assigned at Not on file Legal Sex Female 5:34 AM BELL NECK HAMMERER Gender Identity Not on file Sexual Orientation Not on file documented as of this encounter Plan of Treatment Not on file documented as of this encounter Visit Diagnoses Diagnosis Other and unspecified disc disorder of lumbar region- Primary documented in this encounter Care Teams Laser Set Up Operator Relationship Specialty Start Date End Date Jayesh Krueger MD [address] [place] [address] PCP - General Internal Medicine 12/19/16 documented as of this encounter
--- OUTSIDE RECORDS SUMMARY | 2025-02-10 10:03 | XMS_ITS | Encounter Summary ---
Author Organization [facility] Address [address] [place] [address] Care Team Providers Care Life Insurance Actuary Name Role Phone Jayesh Krueger MD Primary Care Provider [phone] Encounter Details Date Type Department Care Team (Latest Contact Info) Description 05/08/2005 Outpatient Historical [facility] Endocrinology-[facility] [place] [address] [place] [address] Chin Patel MD NO ADDRESS ON FILE DIABETES MELLITUS TYPE II-UNCOMPL (CMS/HCC) (Primary Dx); HYPERLIPIDEMIA NEC/NOS; HYPERTENSION NOS Social History Tobacco Use Types Packs/Day Years Used Date Smoking Tobacco: Never Assessed Comments Unknown Sex and Gender Information Value Date Recorded Sex Assigned at Not on file Legal Sex Female 5: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 Gender Identity Not on file Sexual Orientation Not on file documented as of this encounter Plan of Treatment Not on file documented as of this encounter Visit Diagnoses Diagnosis Type II or unspecified type diabetes mellitus without mention of complication, not stated as uncontrolled- Primary Other and unspecified hyperlipidemia Unspecified essential hypertension documented in this encounter Care Teams Life Insurance Actuary Relationship Specialty Start Date End Date Jayesh Krueger MD [address] [place] [address] PCP - General Internal Medicine 12/19/16 documented as of this encounter
--- OUTSIDE RECORDS SUMMARY | 2025-02-10 10:03 | XMS_ITS | Encounter Summary ---
Author Organization [facility] Address [address] [place] [address] Care Team Providers Care Construction Field Engineer Name Role Phone Jayesh Krueger MD Primary Care Provider [phone] Encounter Details Date Type Department Care Team (Late st Contact Info) Description 09/01/1999 Outpatient Historical [facility] Cardiac Thoracic Vascular Surg [place] [address] [place] [address] Social History Tobacco Use Types Packs/Day Years Used Date Smoking Tobacco: Never Assessed Comments Unknown Sex and Gender Information Value Date Recorded Sex Assigned at Not on file Legal Sex Female 5:34 AM LOOM OVERHAULER Gender Identity Not on file Sexual Orientation Not on file documented as of this encounter Plan of Treatment Not on file documented as of this encounter Visit Diagnoses Not on filedocumented in this encounter Care Teams Construction Field Engineer Relationship Specialty Start Date End Date Jayesh Krueger MD [address] [place] [address] PCP - General Internal Medicine 12/19/16 documented as of this encounter
--- OUTSIDE RECORDS SUMMARY | 2025-02-10 10:03 | XMS_ITS | Encounter Summary ---
Author Organization [facility] Address [address] [place] [address] Care Team Providers Care Casting Machine Adjuster Name Role Phone Jayesh Krueger MD Primary Care Provider [phone] Encounter Details Date Type Department Care Team (Late st Contact Info) Description 01/05/2003 Outpatient Historical [facility] Thomas Dailey MD [address] [place] [address] LUMBAGO (Primary Dx) Social History Tobacco Use Types Packs/Day Years Used Date Smoking Tobacco: Never Assessed Comments Unknown Sex and Gender Information Value Date Recorded Sex Assigned at Not on file Legal Sex Female 5:34 AM LOAN INSPECTOR Gender Identity Not on file Sexual Orientation Not on file documented as of this encounter Plan of Treatment Not on file documented as of this encounter Visit Diagnoses Diagnosis Lumbago- Primary documented in this encounter Care Teams Casting Machine Adjuster Relationship Specialty Start Date End Date Jayesh Krueger MD [address] [place] [address] PCP - General Internal Medicine 12/19/16 documented as of this encounter
--- OUTSIDE RECORDS SUMMARY | 2025-02-10 10:03 | XMS_ITS | Encounter Summary ---
Author Organization [facility] Address [address] [place] [address] Care Team Providers Care Tree Shear Operator Name Role Phone Jayesh Krueger MD Primary Care Provider [phone] Encounter Details Date Type Department Care Team (Latest Contact Info) Description 12/25/2002 Outpatient Historical [facility] [address] [place] [address] Thomas Dailey MD [address] [place] [address] PREOP CARDIOVASC EXAM (Primary Dx) Social History Tobacco Use Types Packs/Day Years Used Date Smoking Tobacco: Never Assessed Comments Unknown Sex and Gender Information Value Date Recorded Sex Assigned at Not on file Legal Sex Female 5:34 AM NURSERY HAND Gender Identity Not on file Sexual Orientation Not on file documented as of this encounter Plan of Treatment Not on file documented as of this encounter Visit Diagnoses Diagnosis Pre-operative cardiovascular examination- Primary documented in this encounter Care Teams Tree Shear Operator Relationship Specialty Start Date End Date Jayesh Krueger MD [address] [place] [address] PCP - General Internal Medicine 12/19/16 documented as of this encounter
--- OUTSIDE RECORDS SUMMARY | 2025-02-10 10:03 | XMS_ITS | Encounter Summary ---
Author Organization [facility] Address [address] [place] [address] Care Team Providers Care Traffic Incident Management Manager Name Role Phone Jayesh Krueger MD Primary Care Provider [phone] Encounter Details Date Type Department Care Team (Late st Contact Info) Description 10/25/1999 Outpatient Historical [facility] Social History Tobacco Use Types Packs/Day Years Used Date Smoking Tobacco: Never Assessed Comments Unknown Sex and Gender Information Value Date Recorded Sex Assigned at Not on file Legal Sex Female 5:34 AM SERVICE CENTER SPECIALIST Gender Identity Not on file Sexual Orientation Not on file documented as of this encounter Plan of Treatment Not on file documented as of this encounter Visit Diagnoses Not on filedocumented in this encounter Care Teams Traffic Incident Management Manager Relationship Specialty Start Date End Date Jayesh Krueger MD [address] [place] [address] PCP - General Internal Medicine 12/19/16 documented as of this encounter
--- OUTSIDE RECORDS SUMMARY | 2025-02-10 10:03 | XMS_ITS | Encounter Summary ---
Author Organization [facility] Address [address] [place] [address] Care Team Providers Care Tax Intern Name Role Phone Jayesh Krueger MD Primary Care Provider [phone] Encounter Details Date Type Department Care Team (Latest Contact Info) Description 12/13/1999 Outpatient Historical [facility] Nasir Uriostegui MD NO ADDRESS ON FILE Degeneration of cervical intervertebral disc (Primary Dx) Social History Tobacco Use Types Packs/Day Years Used Date Smoking Tobacco: Never Assessed Comments Unknown Sex and Gender Information Value Date Recorded Sex Assigned at Not on file Legal Sex Female 5:34 AM MANAGER ERP Gender Identity Not on file Sexual Orientation Not on file documented as of this encounter Plan of Treatment Not on file documented as of this encounter Visit Diagnoses Diagnosis Degeneration of cervical intervertebral disc- Primary documented in this encounter Care Teams Tax Intern Relationship Specialty Start Date End Date Jayesh Krueger MD [address] [place] [address] PCP - General Internal Medicine 12/19/16 documented as of this encounter
--- OUTSIDE RECORDS SUMMARY | 2025-02-10 10:03 | XMS_ITS | Encounter Summary ---
Author Organization [facility] Address [address] [facility] Attn: [place] [address] Care Team Providers Care Sheriff Officer Name Role Phone Jayesh Krueger MD Primary Care Provider [phone] Encounter Details Date Type Department Care Team (Late st Contact Info) Description 03/05/2000 Outpatient Historical Thomas Dailey MD [address] [place] [address] Social History Tobacco Use Types Packs/Day Years Used Date Smoking Tobacco: Never Assessed Comments Unknown Sex and Gender Information Value Date Recorded Sex Assigned at Not on file Legal Sex Female 5:34 AM AUTO LEASING MANAGER Gender Identity Not on file Sexual Orientation Not on file documented as of this encounter Plan of Treatment Not on file documented as of this encounter Visit Diagnoses Not on filedocumented in this encounter Care Teams Sheriff Officer Relationship Specialty Start Date End Date Jayesh Krueger MD [address] [place] [address] PCP - General Internal Medicine 12/19/16 documented as of this encounter
--- OUTSIDE RECORDS SUMMARY | 2025-02-10 10:03 | XMS_ITS | Encounter Summary ---
Author Organization [facility] Address [address] [place] [address] Care Team Providers Care Pants Closer Name Role Phone Jayesh Krueger MD Primary Care Provider [phone] Encounter Details Date Type Department Care Team (Latest Contact Info) Description 11/04/2004 Outpatient Historical [facility] Endocrinology-[facility] [place] [address] [place] [address] Chin Patel MD NO ADDRESS ON FILE DIABETES MELLITUS TYPE II-UNCOMPL (CMS/HCC) (Primary Dx); HYPERLIPIDEMIA NEC/NOS; THYROTOX NOS NO CRISIS; HYPOTHYROIDISM NOS Social History Tobacco Use Types Packs/Day Years Used Date Smoking Tobacco: Never Assessed Comments Unknown Sex and Gender Information Value Date Recorded Sex Assigned at Not on file Legal Sex Female 5:34 AM CORE PLACER Gender Identity Not on file Sexual Orientation [...] hypothyroidism documented in this encounter Care Teams Pants Closer Relationship Specialty Start Date End Date Jayesh Krueger MD [address] [place] [address] PCP - General Internal Medicine 12/19/16 documented as of this encounter
--- OUTSIDE RECORDS SUMMARY | 2025-02-10 10:03 | XMS_ITS | Encounter Summary ---
Author Organization [facility] Address [address] [place] [address] Care Team Providers Care Inspector Multifocal Lens Name Role Phone Jayesh Krueger MD Primary Care Provider [phone] Encounter Details Date Type Department Care Team (Latest Contact Info) Description 11/11/2002 Outpatient Historical [facility] RADIOLOGY NEUROP Thomas Dailey MD [address] [place] [address] LUMBAGO (Primary Dx) Social History Tobacco Use Types Packs/Day Years Used Date Smoking Tobacco: Never Assessed Comments Unknown Sex and Gender Information Value Date Recorded Sex Assigned at Not on file Legal Sex Female 5:34 AM ENROLLMENT NURSE Gender Identity Not on file Sexual Orientation Not on file documented as of this encounter Plan of Treatment Not on file documented as of this encounter Visit Diagnoses Diagnosis Lumbago- Primary documented in this encounter Care Teams Inspector Multifocal Lens Relationship Specialty Start Date End Date Jayesh Krueger MD [address] [place] [address] PCP - General Internal Medicine 12/19/16 documented as of this encounter
--- OUTSIDE RECORDS SUMMARY | 2025-02-10 10:03 | XMS_ITS | Encounter Summary ---
Author Organization [facility] Address [address] [place] [address] Care Team Providers Care Cigar Bander Name Role Phone Jayesh Krueger MD Primary Care Provider [phone] Encounter Details Date Type Department Care Team (Late st Contact Info) Description 09/06/2003 Emergency [facility] Emergency Department [address] [place] [address] Leonel Basurto DO NO ADDRESS ON FILE TRANSIENT CEREBRAL ISCHEMIA NOS (Primary Dx) Social History Tobacco Use Types Packs/Day Years Used Date Smoking Tobacco: Never Assessed Comments Unknown Sex and Gender Information Value Date Recorded Sex Assigned at Not on file Legal Sex Female 5:34 AM TOWEL STRETCHER Gender Identity Not on file Sexual Orientation Not on file documented as of this encounter Plan of Treatment Not on file documented as of this encounter Visit Diagnoses Diagnosis Unspecified transient cerebral ischemia- Primary documented in this encounter Care Teams Cigar Bander Relationship Specialty Start Date End Date Jayesh Krueger MD [address] [place] [address] PCP - General Internal Medicine 12/19/16 documented as of this encounter
--- OUTSIDE RECORDS SUMMARY | 2025-02-10 10:03 | XMS_ITS | Encounter Summary ---
Author Organization [facility] Address [address] [place] [address] Care Team Providers Care Geodetic Computator Name Role Phone Jayesh Krueger MD Primary Care Provider [phone] Encounter Details Date Type Department Care Team (Late st Contact Info) Description 02/06/[address] [facility] [address] [place] [address] Sotero Ortiz MD NO ADDRESS ON FILE Myalgia and myositis, unspecified (Primary Dx); Headache(784.0) Social History Tobacco Use Types Packs/Day Years Used Date Smoking Tobacco: Never Assessed Comments Unknown Sex and Gender Information Value Date Recorded Sex Assigned at Not on file Legal Sex Female 5:34 AM TREASURY ASSOCIATE Gender Identity Not on file Sexual Orientation Not on file documented as of this encounter Plan of Treatment Not on file documented as of this encounter Visit Diagnoses Diagnosis Myalgia and myositis, unspecified- Primary Mylagia and myositis, unspecified Headache(784.0) Headache documented in this encounter Care Teams Geodetic Computator Relationship Specialty Start Date End Date Jayesh Krueger MD [address] [place] [address] PCP - General Internal Medicine 12/19/16 documented as of this encounter
--- OUTSIDE RECORDS SUMMARY | 2025-02-10 10:03 | XMS_ITS | Encounter Summary ---
Author Organization [facility] Address [address] [place] [address] Care Team Providers Care Stamp Clerk Name Role Phone Jayesh Krueger MD Primary Care Provider [phone] Encounter Details Date Type Department Care Team (Latest Contact Info) Description 12/31/2003 Outpatient Historical [facility] Endocrinology-[facility] [place] [address] [place] [address] Chin Patel MD NO ADDRESS ON FILE DIABETES UNCOMPL ADULT-TYPE II (CMS/[facility]) (Primary Dx); HYPERLIPIDEMIA NEC/NOS; HYPERTENSION NOS; HYPOTHYROIDISM NOS Social History Tobacco Use Types Packs/Day Years Used Date Smoking Tobacco: Never Assessed Comments Unknown Sex and Gender Information Value Date Recorded Sex Assigned at Not on file Legal Sex Female 5:34 AM INTERPRETER FOR THE DEAF Gender Identity Not on file Sexual Orientation Not on file documented as of this encounter Plan of Treatment Not on file documented as of this encounter Visit Diagnoses Diagnosis Type II or unspecified type diabetes mellitus without mention of complication, not stated as uncontrolled- Primary Other and unspecified hyperlipidemia Unspecified essential hypertension Unspecified hypothyroidism documented in this encounter Care Teams Stamp Clerk Relationship Specialty Start Date End Date Jayesh Krueger MD [address] [place] [address] PCP - General Internal Medicine 12/19/16 documented as of this encounter
--- OUTSIDE RECORDS SUMMARY | 2025-02-10 10:03 | XMS_ITS | Encounter Summary ---
Author Organization [facility] Address [address] [facility] Attn: [place] [address] Care Team Providers Care Sheet Sewer Name Role Phone Jayesh Krueger MD Primary Care Provider Encounter Details Date Type Department Care Team (Late st Contact Info) Description 04/13/2000 Inpatient Historical Thomas Dailey MD [address] [place] [address] Social History Tobacco Use Types Packs/Day Years Used Date Smoking Tobacco: Never Assessed Comments Unknown Sex and Gender Information Value Date Recorded Sex Assigned at Not on file Legal Sex Female 5:34 AM THERMAL CUTTING TRACER MACHINE OPERATOR Gender Identity Not on file Sexual Orientation Not on file documented as of this encounter Plan of Treatment Not on file documented as of this encounter Visit Diagnoses Not on filedocumented in this encounter Care Teams Sheet Sewer Relationship Specialty Start Date End Date Jayesh Krueger MD [address] [place] [address] PCP - General Internal Medicine 12/19/16 documented as of this encounter
--- OUTSIDE RECORDS SUMMARY | 2025-02-10 10:03 | XMS_ITS | Encounter Summary ---
Author Organization [facility] Address [address] [place] [address] Care Team Providers Care Asphalt Screed Operator Name Role Phone Jayesh Krueger MD Primary Care Provider [phone] Encounter Details Date Type Department Care Team (Latest Contact Info) Description 05/03/2004 Outpatient Historical [facility] End[facility]inology-[facility] [address] [place] [address] Chin Patel MD NO ADDRESS ON FILE DIABETES MELLITUS TYPE II-UNCOMPL (CMS/HCC) (Primary Dx); HYPERLIPIDEMIA NEC/NOS; HYPERTENSION NOS; HYPOTHYROIDISM NOS Social History Tobacco Use Types Packs/Day Years Used Date Smoking Tobacco: Never Assessed Comments Unknown Sex and Gender Information Value Date Recorded Sex Assigned at Not on file Legal Sex Female 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 FARM WORKER Gender Identity Not on file Sexual Orientation Not on file documented as of this encounter Plan of Treatment Not on file documented as of this encounter Visit Diagnoses Diagnosis Type II or unspecified type diabetes mellitus without mention of complication, not stated as uncontrolled- Primary Other and unspecified hyperlipidemia Unspecified essential hypertension Unspecified hypothyroidism documented in this encounter Care Teams Asphalt Screed Operator Relationship Specialty Start Date End Date Jayesh Krueger MD [address] [place] [address] PCP - General Internal Medicine 12/19/16 documented as of this encounter
--- NOTE | 2025-02-10 10:04 | XR_ITS ---
WS: [id number] XR lumbar spine 2-3V* [id number] REASON FOR EXAM: fall FINDINGS: Posterior decompression with pedicle screws and interconnecting rods L3-L5. Lateral bony fusion masses L3-L5. Surgical appliances intact and in proper position and alignment unchanged compared to 08/20/2023. Remainder of the lumbar spine is unchanged compared to the previous examination with degenerative spondylosis at remaining disc spaces and old compression deformity of T12. XR/XR lumbar spine 2-3V* 14196 IMPRESSION: Posterior lumbar fusion. No acute abnormality.
--- NOTE | 2025-02-10 10:04 | XR_ITS ---
WS: [id number] XR hip RT 2-3V wo/w pel* [id number] REASON FOR EXAM: fall; one view pelvis too please FINDINGS: Mild to moderate osteoarthritis of the right hip. Femoral head, neck, intertrochanteric region, and proximal femoral shaft are intact without fracture. Pubic rami are intact. XR/XR hip RT 2-3V wo/w pel* 90300 IMPRESSION: No acute abnormality.
--- NOTE | 2025-02-10 10:04 | CT_ITS ---
WS: [id number] CT HEAD NONCONTRAST HISTORY: fall TECHNIQUE: Contiguous axial imaging performed through the brain. Bone and soft tissue windows. Sagittal and coronal reformats reviewed. All CT scans at [facility] use at least one of these dose optimization techniques: automated exposure control; mA and/or kV adjustment per patient size (includes targeted exams where dose is matched to clinical indication); or iterative reconstruction. DLP: 1162.48 mGy.cm COMPARISON: 01/31/2025, 01/30/2025 No acute intracranial hemorrhage, midline shift or mass effect. Mild to moderate cerebral and cerebellar atrophy with small vessel changes. Lacunar infarct LEFT basal ganglia. No large territory infarct. Ventricles: Normal size with no hydrocephalus. No inferior displacement the cerebellar tonsils. Paranasal sinuses: As visualized are clear. Mastoid air cells: Well pneumatized. Calvarium and scalp: Hyperostosis frontalis interna. CT/CT head wo con* [id number] IMPRESSION: 1. No acute intracranial hemorrhage or edema. 2. Mild to moderate cerebral and cerebellar atrophy and small vessel changes. No acute interval change.
--- NOTE | 2025-02-10 10:04 | W.ED.FALL ---
HPI - Fall General: Chief Complaint: Fall Stated Complaint: FALL Time Seen by Provider: 02/10/25 09:58 Source: patient Mode of arrival: EMS Limitations: no limitations History of Present Illness: Patient is a 69-year-old female who presents to ED today from [facility] following a fall. She reportedly slipped/tripped while trying to get out of bed and fell onto her right hip. She also states she struck her head but there was no loss of consciousness. She does complain of a mild headache. She is not on anticoagulation. She is not having any neck pain. Does complain of some mild lower back discomfort. Patient does have a known large hematoma to her right hip and thigh that has been present over the past 2 weeks or so. She does feel like this is slowly improving. Her main complaint today is pain around her right hip following the fall. MD complaint: fall Onset (ago): hour(s) Fall from: out of bed Fall witnessed: no Place fall occurred[facility] Loss of consciousness: None Prolonged down time: no Symptoms prior to fall: none Context: tripped/slipped Location of injury: head and back Severity: moderate Associated symptoms-after fall: Reports difficulty walking and headache(s); Denies abdominal pain, chest pain, hematuria, lightheadedness or neck pain Related Data Home Medications ?Medication ?Instructions ?Recorded ?Confirmed ascorbic acid 7.5 mg-vit E 7.5 1 tab PO DAILY@1000 11/12/20 02/06/25 unit-biotin 1,250 mcg chewable tablet (Hair,Skin,Nails with Biotin) multivitamin 1 tab PO DAILY@1000 11/12/20 02/06/25 cyanocobalamin (vitamin B-12) 1,000 mcg PO DAILY 01/03/23 02/06/25 1,000 mcg tablet (Vitamin B-12) atorvastatin 20 mg tablet 20 mg PO .DAILY@10AM 07/18/24 02/06/25 cyclobenzaprine 10 mg tablet 10 mg PO TID PRN Muscle Spasm 07/18/24 02/06/25 gabapentin 100 mg capsule 100 mg PO BID 07/18/24 02/06/25 potassium chloride 20 mEq 20 meq PO .DAILY@10AM 07/18/24 02/06/25 tablet,extended release lamotrigine 200 mg tablet 200 mg PO BID 12/30/24 02/06/25 duloxetine 60 mg capsule,delayed 120 mg PO QAM 01/26/25 02/06/25 release fluoxetine 20 mg capsule 20 mg PO QAM 01/26/25 02/06/25 levothyroxine 200 mcg tablet 200 mcg PO .DAILY@10AM 01/26/25 02/06/25 lidocaine 5 % topical patch 1 patch topical DAILY PRN Pain 01/26/25 02/06/25 (Lidoderm) omega 5-kjq-vdr-fish oil 1,200 mg 1 cap PO DAILY 01/30/25 02/06/25 (144 mg-216 mg) capsule (Fish Oil) Previous Rx's ?Medication ?Instructions ?Recorded insulin syringe-needle U-100 1 mL #100 ea 09/06/22 28 gauge x 1/2 (BD Insulin Syringe) Diabetic shoes #1 ea 04/11/23 blood-glucose meter #1 ea 06/12/23 blood sugar diagnostic (Blood #200 ea 06/15/23 Glucose Test strips) blood-glucose meter (Accu-Chek #1 ea 06/27/23 Guide Glucose Meter) blood sugar diagnostic (Accu-Chek #100 ea 07/26/23 Guide test strips) lancets (Accu-Chek Softclix #200 ea 09/14/23 Lancets) Diabetic Shoes with Inserts #1 ea 12/11/24 mupirocin 2 % topical ointment 1 applic topical BID 2 weeks #22 12/11/24 grams insulin syringe-needle U-100 1 mL #100 ea 01/02/25 31 gauge x 5/16 (TRUEplus Insulin) cam boot to right #1 ea 01/05/25 semaglutide 0.25 mg or 0.5 mg (2 0.5 mg (0.736 mL) SUBCUT .weekly 01/27/25 mg/3 mL) subcutaneous pen injector #3 mL (Ozempic) amiodarone 200 mg tablet (Pacerone) See Rx Instructions .Route 02/06/25 .COMPLEX #60 tabs amlodipine 10 mg tablet 10 mg PO DAILY #30 tabs 02/06/25 aspirin 81 mg tablet,delayed 81 mg PO DAILY #30 tabs 02/06/25 release glimepiride 4 mg tablet 2 mg (1/2 x 4 mg) PO BID #30 tabs 02/06/25 hydrocodone 5 mg-acetaminophen 325 0.5 tab PO Q8H PRN Moderate Pain 02/06/25 mg tablet #9 tabs olanzapine 5 mg tablet 2.5 mg (1/2 x 5 mg) PO BID #30 tabs 02/06/25 quetiapine 25 mg tablet 25 mg PO BEDTIME #30 tabs 02/06/25 sennosides 8.6 mg-docusate sodium 1 tab PO BID PRN Constipation #30 02/06/25 50 mg tablet (Stool tabs Softener-Laxative) Allergies Allergy/AdvReac Type Severity Reaction Status Date / Time azithromycin (From Zithromax) Allergy rash Verified 01/27/25 11:18 cetirizine (From Zyrtec) Allergy rash Verified 01/27/25 11:18 lisinopril (From Zestril) Allergy ALGY-Swell Verified 01/27/25 11:18 Lip/Tongue/Throat metformin AdvReac Intermediate diarrhea Verified 01/27/25 11:18 topiramate (From Topamax) AdvReac Intermediate diarrhea Verified 01/27/25 11:18 Review of Systems Eyes: Denies: change in vision, blurry vision, photophobia, eye discharge, floaters or seeing flashes ENMT: Denies: throat pain, odynophagia, ear or mastoid pain, ear discharge, nasal discharge, epistaxis or sinus pain Card: Denies: chest pain, palpitations, lightheadedness, syncope or pre-syncope Resp: Denies: dyspnea or pain on inspiration GI: Denies: abdominal pain : Denies: flank pain or hematuria Musc: Reports: back pain, extremity swelling (R thigh edema from known hematoma) and joint pain (R hip); Denies: neck pain or extremity pain Neuro: Reports: headache(s) and difficulty walking; Denies: numbness in extremities, weakness in extremities or sensory changes PFSH ED PFSH: Medical History 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 Left shoulder pain Hypothyroid Hyperlipidemia Hypertension Diabetes mellitus Suspected COVID-19 virus infection Hypothyroidism Chronic diarrhea Tension headache, chronic CVA (cerebral vascular accident) TIA (transient ischemic attack) History of aphasia Hx of kidney disease Hx of type 2 diabetes mellitus History of anemia History of GI bleed History of hypothyroidism Hx of primary hypertension History of bipolar disorder History of anxiety History of depression History of posttraumatic stress disorder (PTSD) Surgical History Hx of appendectomy History of back surgery Hx of cholecystectomy Hx of hysterectomy Hx of neck surgery Social History Smoking and tobacco/nicotine status: never used tobacco/nicotine Alcohol intake: current Alcohol intake frequency: holidays/special occasions only Substance/Drug Use: never Physical Exam Const: COMMON NORMALS: no acute distress, patient oriented x3, no limitations, alert and well nourished GENERAL APPEARANCE: cooperative NUTRITIONAL APPEARANCE: obese (BMI 40.4) ORIENTATION/CONSCIOUSNESS: Yes awake, Yes oriented to person, Yes oriented to place and Yes oriented to time HENMT: COMMON NORMALS: normocephalic, atraumatic and TM's normal bilaterally HEAD & SCALP: normal to inspection, normocephalic and atraumatic; no Diego's sign, no hematoma and no raccoon eyes FACE & SINUS: normal facial exam TYMPANIC MEMBRANE: TM's normal bilaterally MOUTH: other (no intraoral injuries noted) Eye: COMMON NORMALS: Equal, round and reactive pupils present and EOMs intact bilaterally GENERAL EYE: appearance normal, both eyes and all related structures and normal light reflex PUPIL: Yes Equal, round and reactive pupils present DIRECT OPHTHALMOSCOPY: Yes normal light reflex Neck/C-Spine: COMMON NORMALS: full ROM GENERAL: Yes normal visual inspection CERVICAL SPINE: Yes cervical ROM normal, No pain with cervical ROM, No Cervical spine tenderness, No step off deformity and No Paracervical muscle tenderness Chest: COMMONS NORMALS: normal inspection of the chest and normal palpation of entire chest wall Resp: COMMON NORMALS: normal respiratory effort and clear to auscultation bilaterally AUSCULTATION: clear to auscultation bilaterally Cardio: COMMON NORMALS: regular rate and regular rhythm RATE: regular rate RHYTHM: regular rhythm GI: COMMON NORMALS: Normal to inspection, nondistended, normoactive bowel sounds present, Soft to palpation, non-tender, No hepatosplenomegaly present and no masses INSPECTION: Yes normal to inspection and No abdominal wall ecchymosis AUSCULTATION: Yes normoactive bowel sounds PALPATION: Yes Soft to palpation and Yes No hepatosplenomegaly present Back/Pelvis: COMMON NORMALS: thoracic and lumbar spine normal to inspection and thoraco-lumbar ROM normal THORACIC SPINE/UPPER BACK: No thoracic spinal tenderness and No paraspinal muscle tenderness LUMBAR SPINE/LOWER BACK: Yes lumbar spinal tenderness and No paraspinal muscle tenderness PELVIS: Yes buttocks normal and No sciatic notch tenderness SACRUM: no tenderness COCCYX: no tenderness Extremity: COMMON NORMALS: capillary refill normal, no clubbing, cyanosis or edema, no calf tenderness and no pedal edema GENERAL: Yes normal exam except as noted RIGHT LOWER EXTREMITY: Yes hip joint (TTP R hip joint with limited ROM-no obvious shortening/rotation) Right hip: Yes ROM (limited due to pain) and Yes neurovascular exam (normal) and Yes upper leg (hematoma anteriolateral R thigh with signs of old/healing ecchymosis) Right upper leg: Yes neurovascular exam (normal) Neuro: PETE COMA SCALE: document GCS findings Lyford coma scale eye opening: Spontaneous Lyford coma scale verbal response: Orientated Pete coma scale motor response: Obey commands Pete coma scale total score: 15 COMMON NORMALS: patient oriented x3, CN's II-XII intact bilaterally, moves all extremities, no focal motor deficits and no sensory deficits noted SENSORIUM/ORIENTATION: Yes alert, Yes oriented to person, Yes oriented to place and Yes oriented to time SPEECH: speech normal GAIT: Yes Normal gait present Skin: COMMON NORMALS: no rashes or lesions noted GENERAL SKIN EXAM: no rashes or lesions noted TRAUMA: no lacerations or abrasions Course Vital Signs: Vital signs: Vital Signs Temperature 98.7 F 02/10/25 09:56 Pulse Rate 79 02/10/25 09:56 Respiratory Rate 16 02/10/25 11:16 Blood Pressure 169/66 02/10/25 09:56 Pulse Oximetry 98 02/10/25 09:56 Oxygen Delivery Me thod Room Air 02/10/25 09:56 MDM - Fall Medical Decision Making XR imaging of her right hip and pelvis lower back were obtained and unremarkable. CT head obtained showing no acute findings. Patient will be allowed discharge back to [facility]. Lab Data Radiology Impressions Head CT 02/10/25 10:04 IMPRESSION: 1. No acute intracranial hemorrhage or edema. 2. Mild to moderate cerebral and cerebellar atrophy and small vessel changes. No acute interval change. Hip/Pelvis X-Ray 02/10/25 10:04 IMPRESSION: No acute abnormality. Lumbar Spine X-Ray 02/10/25 10:04 IMPRESSION: Posterior lumbar fusion. No acute abnormality. All radiology interpretation(s) finalized by discharge Discharge Plan Discharge Patient Disposition: Home Clinical Impression: Contusion of right hip Qualifiers: Encounter type: initial encounter Qualified Code(s): S70.01XA - Contusion of right hip, initial encounter Hematoma of right thigh Qualifiers: Encounter type: initial encounter Qualified Code(s): S70.11XA - Contusion of right thigh, initial encounter Fall Qualifiers: Encounter type: initial encounter Qualified Code(s): W19.XXXA - Unspecified fall, initial encounter Condition: Stable Prescriptions: No Action (DME) cam boot to right See Rx Instructions .Route .MEDSUPPLY Qty: 1 0RF Rx Instructions: As directed lamotrigine 200 mg tablet 200 mg PO BID (DME) Diabetic shoes See Rx Instructions .Route .MEDSUPPLY Qty: 1 0RF Rx Instructions: Heel lift and insoles. Last HgbA1C 5.7 on 02/01. mupirocin 2 % ointment 1 applic topical BID 14 Days Qty: 22 1RF (DME) Diabetic Shoes with Inserts See Rx Instructions .Route .MEDSUPPLY Qty: 1 0RF Rx Instructions: As directed (DME) insulin syringe-needle U-100 [BD Insulin Syringe] 1 mL 28 gauge x 1/2 syringe See Rx Instructions .Route Qty: 100 11RF Rx Instructions: As directed (DME) blood-glucose meter Misc See Rx Instructions .MEDSUPPLY Qty: 1 0RF Rx Instructions: Check TID (DME) Blood Glucose Test Strip See Rx Instructions .MEDSUPPLY Qty: 200 12RF Rx Instructions: Use with glucometer to check blood sugar three times a day (DME) blood-glucose meter [Accu-Chek Guide Glucose Meter] Misc See Rx Instructions .Route Qty: 1 0RF Rx Instructions: As directed (DME) Accu-Chek Guide test strips Strip See Rx Instructions .Route Qty: 100 11RF Rx Instructions: check TID (DME) lancets [Accu-Chek Softclix Lancets] Misc See Rx Instructions .Route Qty: 200 11RF Rx Instructions: use as directed three times a day (DME) insulin syringe-needle U-100 [TRUEplus Insulin] 1 mL 31 gauge x 5/16 syringe See Rx Instructions .ROUTE .COMPLEX Qty: 100 3RF Dose Instruction: TO USE WITH LANTUS Rx Instructions: TO USE WITH LANTUS Ozempic 0.25 mg or 0.5 mg (2 mg/3 mL) pen injector 0.5 mg SUBCUT .weekly Qty: 3 11RF Rx Instructions: Sunday multivitamin Tablet 1 tab PO DAILY@1000 Hair, Skin, Nails with Biotin 7.5-7.5-1,250 mg-unit-mcg Tablet,Chewable 1 tab PO DAILY@1000 cyanocobalamin (vitamin B-12) [Vitamin B-12] 1,000 mcg Tablet 1,000 mcg PO DAILY cyclobenzaprine 10 mg tablet 10 mg PO TID PRN (Reason: Muscle Spasm) atorvastatin 20 mg tablet 20 mg PO .DAILY@10AM gabapentin 100 mg capsule 100 mg PO BID potassium chloride 20 mEq tablet extended release 20 meq PO .DAILY@10AM fluoxetine 20 mg capsule 20 mg PO QAM duloxetine 60 mg capsule,delayed release(DR/EC) 120 mg PO QAM lidocaine [Lidoderm] 5 % adhesive patch,medicated 1 patch topical DAILY PRN (Reason: Pain) Rx Instructions: leave on most painful area for up to 12 hrs then take off levothyroxine 200 mcg tablet 200 mcg PO .DAILY@10AM omega 4-pxk-abk-fish oil [Fish Oil] 1,200 (144-216) mg Capsule 1 cap PO DAILY amiodarone [Pacerone] 200 mg Tablet See Rx Instructions .ROUTE .COMPLEX Qty: 60 0RF Rx Instructions: Take 400 mg by mouth daily for 7 days then reduce dose to 200 mg daily. aspirin 81 mg Tablet,Delayed Release (Dr/Ec) 81 mg PO DAILY Qty: 30 0RF hydrocodone-acetaminophen 5-325 mg Tablet 0.5 tab PO Q8H PRN (Reason: Moderate Pain) Qty: 9 0RF glimepiride 4 mg tablet 2 mg PO BID Qty: 30 0RF quetiapine 25 mg Tablet 25 mg PO BEDTIME Qty: 30 0RF sennosides-docusate sodium [Stool Softener-Laxative] 8.6-50 mg Tablet 1 tab PO BID PRN (Reason: Constipation) Qty: 30 0RF olanzapine 5 mg Tablet 2.5 mg PO BID Qty: 30 0RF amlodipine 10 mg tablet 10 mg PO DAILY Qty: 30 0RF Discharge Orders: Discharge ED (Routine); Ordered 02/10/25 Ordered By: Evita Rey Referrals: Carter Yusuf MD [Primary Care Provider, Family Practice] Patient Instructions: Patient Portal & Brianna Instructions Activity Restrictions/Additional Instructions: Discussed, x-rays of your right hip and pelvis as well as x-rays of your back and CT of your head were obtained from the emergency department today. These were all unremarkable. You will be allowed discharge back to [facility] with plans for continued physical therapy Print Language: [place] Citizen Coding Level of Care Code ED Business Development Specialist for Jaret Deal
--- OUTSIDE RECORDS SUMMARY | 2025-02-10 10:04 | XMS_ITS | Encounter Summary ---
Author Organization [facility] Address [address] [place] [address] Care Team Providers Care Telephonic Case Manager Name Role Phone Jayesh Krueger MD Primary Care Provider [phone] Encounter Details Date Type Department Care Team (Late st Contact Info) Description 01/12/2010 Ancillary Orders [facility] Orthopedics- [address] [place] [address] Jean-Paul Kirkland MD NO ADDRESS ON FILE Pain Social History Tobacco Use Types Packs/Day Years Used Date Smoking Tobacco: Never Alcohol Use Standard Drinks/Week Comments No 0 (1 standard drink = 0.6 oz pur e alcohol) Comments No Sex and Gender Information Value Date Recorded Sex Assigned at Not on file Legal Sex Female 5:34 AM FOURDRINIER TENDER Gender Identity Not on file Sexual Orientation Not on file documented as of this encounter Plan of Treatment Not on file documented as of this encounter Results * XR KNEE 1 OR 2 VW LEFT (01/12/2010 11:48 AM CDT) Anatomical Region Laterality Modality Lower Extremity Computed Radiogr aphy Narrative 08/03/2011 9:33 AM FOURDRINIER TENDER AP and lateral radiographs of both knees [...] pain documented in this encounter Care Teams Telephonic Case Manager Relationship Specialty Start Date End Date Jayesh Krueger MD [address] [place] [address] PCP - General Internal Medicine 12/19/16 documented as of this encounter
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
--- OUTSIDE RECORDS SUMMARY | 2025-02-10 10:04 | XMS_ITS | Encounter Summary ---
Author Organization [facility] Address [address] [place] [address] Care Team Providers Care Propeller Mechanic Name Role Phone Jayesh rKueger MD Primary Care Provider [phone] Encounter Details Date Type Department Care Team (Latest Contact Info) Description 10/31/2006 Outpatient Historical [facility] End[facility]inology-[facility] [place] [address] [address] Brice [place]connell, [place] [address] [place] [address] DM w/o Complication Type II (CMS/HCC) (Primary Dx); Other and Unspecified Hyperlipidemia; Unspecified Essential Hypertension Social History Tobacco Use Types Packs/Day Years Used Date Smoking Tobacco: Never Assessed Comments Unknown Sex and Gender Information Value Date Recorded Sex Assigned at Not on file Legal Sex Female 5:34 AM NURSE GENERAL DUTY Gender Identity Not on file Sexual Orientation Not on file documented as of this encounter Plan of Treatment Not on file documented as of this encounter Visit Diagnoses Diagnosis Type II or unspecified type diabetes mellitus without mention of complication, not stated as uncontrolled- Primary Other and unspecified hyperlipidemia Unspecified essential hypertension documented in this encounter Care Teams Propeller Mechanic Relationship Specialty Start Date End Date Jayesh Krueger MD [address] [place] [address] PCP - General Internal Medicine 12/19/16 documented as of this encounter
--- OUTSIDE RECORDS SUMMARY | 2025-02-10 10:04 | XMS_ITS | Patient Health Record ---
Author Organization [facility] Address [address] [place] [address] Care Team Providers Care Brim Presser Name Role Phone Carter Yusuf Primary Care Provider Sam Tomlinson [phone] Allergies Allergen (clinical drug ingredient) Drug/Non Drug [...] Status W/U Status Risk Notes Problem Dysphagia (56257656) Dysphagia, unspecified (R13.10) Active confirmed Problem Dysphagia (59238826) Dysphagia, unspecified type (R13.10) Active confirmed Problem Steatorrhea (01434609) Steatorrhea (K90.9) Active confirmed Problem History of adenomatous polyp of colon (518409758) History of adenomatous polyp of colon (Z86.010) Active confirmed Problem History of adenomatous polyp of colon (368742713) Hx of adenomatous polyp of colon (Z86.010) Active confirmed Problem Atrophic gastritis (90845449) Mild chronic gastritis (K29.50) Active confirmed Problem Gastroesophageal reflux disease (611956894) Gastroesophagea l reflux disease, unspecified whether esophagitis present (K21.9) Active confirmed Problem Atherosclerotic heart disease of [place] coronary artery without angina pectoris (578740277853187) Atherosclerotic heart disease of [place] coronary artery without angina pectoris (I25.10) Active confirmed [id number] med Description:Cor onary arteriosclerosi s Problem Gastro-esophageal reflux disease without esophagitis (360681057) Gastro-esophage al reflux disease without esophagitis (K21.9) Active confirmed [id number] med Description:Gas troesophageal reflux disease Problem Chest pain (33367795) Chest pain, unspecified (R07.9) Active confirmed [id number] med Description:Cherise st pain Problem Dyspareunia (69136151) Dyspareunia (625.0) 2004 Problem resolved confirmed [id number] Problem Hypercholesterole kedar (22778601) Hypercholestero lemia (272.0) 2004 Problem resolved confirmed [id number]- Problem Late effects of cerebrovascular disease (311276547) Old CVA (438.9) 2004 Problem resolved confirmed [id number]- Problem Acquired hypothyroidism (647078635) Acquired hypothyroidism (244.8) 2004 Problem resolved confirmed [id number]- Problem Diabetes mellitus type 2 (disorder) (04191838) Type 2 diabetes (250.00) 2004 Problem resolved confirmed [id number]- Plan Of Treatment Pending Test Test Name Order Date Culture Stool 38644, 95943, 39851, 67387 , 24298 08/15/2021 Giardia/Cryptosporidium Screen 00998, 87 329 08/15/2021 Fecal Leukocyte 39486 08/15/2021 CDiff PCR Rfx C diff Toxin NAP/EPI 31320 , 88129 08/15/2021 Calprotectin Fecal 90967 08/15/2021 Pancreatic Elastase Fecal--03548 022 Diagnostic Colonoscopy-57740 08/15/2021 EGD, Upper GI Diagnostic-75839 2 Insurance Providers Payer Name Payer Address Payer Phone Subscriber Number Group Number Insured Name Patient Relationship to Insured Coverage Start Date Coverage End Date [place] [address] [place] [phone] [id number] Kaylee Ch Self - patient is the insured [facility] [address] [address] [place] [address] [id number] Kaylee Ch Self - patient is the [...]
--- OUTSIDE RECORDS SUMMARY | 2025-02-10 10:04 | XMS_ITS | Clinical Summary ---
Author Organization [facility] Address [address] [place] [address] Care Team Providers Care Crew Team Member Name Role Phone Jayesh Krueger MD Primary [...] on file Legal Sex Female 12:52 AM STAFF TRAINER Gender Identity Not on file Sexual Orientation [...] Screening 08/28/2026 Medical Devices Implanted Type Area Transferrer Device Identifier Shelf Expiration Date Model / Serial / Lot Cement Palacos Sgl [id number] - [id number] Implanted:Qty: 1 on 04/02/2013 Cement Left: Knee [employer] 11/05/2017 [id number] 0- / / [id number] Bearing Ruthie Mathew Md Sz 5 [id number] - [id number] Implanted:Qty: 1 on 04/02/2013 Knee Left: Knee [employer] 07/08/2016 [id number] / / [id number] Tray Tib Ulster Uni Szb Lm [id number] - [id number] Implanted:Qty: 1 on 04/02/2013 Knee Left: Knee [employer] 07/08/2022 [id number] / / [id number] [place] Partial Knee System, Cemented Twin Pegged Femoral Implanted:Qty: 1 on 04/02/2013 by Jean-Paul Kirkland MD Left: Knee [employer] 10/06/2022 [id number] / / [id number] Insurance MEDICARE PART A AND B [facility] Care Teams Crew Team Member Relationship Specialty Start Date End Date Jayesh Krueger MD [address] [place] [address] PCP - General 10/21/20
--- OUTSIDE RECORDS SUMMARY | 2025-02-10 10:04 | XMS_ITS | Encounter Summary ---
Author Organization [facility] Address [address] [place] [address] Care Team Providers Care School Business Manager Name Role Phone Jayesh Krueger MD Primary Care Provider [phone] Encounter Details Date Type Department Care Team (Latest Contact Info) Description 07/05/2005 Outpatient Historical [facility] Imaging Services-Raj[facility] Cle[facility] [place] [address] [place] [address] Anthony Andrews, DPM [address] [place] [address] OTHER HAMMER TOE (Primary Dx) Social History Tobacco Use Types Packs/Day Years Used Date Smoking Tobacco: Never Assessed Comments Unknown Sex and Gender Information Value Date Recorded Sex Assigned at Not on file Legal Sex Female 5:34 AM NURSES' AIDE Gender Identity Not on file Sexual Orientation Not on file documented as of this encounter Plan of Treatment Not on file documented as of this encounter Visit Diagnoses Diagnosis Other hammer toe (acquired)- Primary documented in this encounter Care Teams School Business Manager Relationship Specialty Start Date End Date Jayesh Krueger MD [address] [place] [address] PCP - General Internal Medicine 12/19/16 documented as of this encounter
--- OUTSIDE RECORDS SUMMARY | 2025-02-10 10:04 | XMS_ITS | Encounter Summary ---
Author Organization [facility] Address [address] [place] [address] Care Team Providers Care Chicken Vaccinator Name Role Phone Jayesh Krueger MD Primary Care Provider [phone] Encounter Details Date Type Department Care Team (Latest Contact Info) Description 11/06/2005 Outpatient Historical [facility] Endocrinology-[facility] [place] [address] [place] [address] Chin Patel MD NO ADDRESS ON FILE DM w/o Complication Type II (CMS/HCC) (Primary Dx); Other and Unspecified Hyperlipidemia; Unspecified Essential Hypertension Social History Tobacco Use Types Packs/Day Years Used Date Smoking Tobacco: Never Assessed Comments Unknown Sex and Gender Information Value Date Recorded Sex Assigned at Not on file Legal Sex Female 5:34 AM DAYCARE MANAGER Gender Identity Not on file Sexual Orientation Not on file documented as of this encounter Plan of Treatment Not on file documented as of this encounter Visit Diagnoses Diagnosis Type II or unspecified type diabetes mellitus without mention of complication, not stated as uncontrolled- Primary Other and unspecified hyperlipidemia Unspecified essential hypertension documented in this encounter Care Teams Chicken Vaccinator Relationship Specialty Start Date End Date Jayesh Krueger MD [address] [place] [address] PCP - General Internal Medicine 12/19/16 documented as of this encounter
--- OUTSIDE RECORDS SUMMARY | 2025-02-10 10:04 | XMS_ITS | Encounter Summary ---
Author Organization [facility] Address [address] [place] [address] Care Team Providers Care Event Mgr Name Role Phone Jayesh Krueger MD Primary Care Provider [phone] Encounter Details Date Type Department Care Team (Latest Contact Info) Description 03/20/2006 Outpatient Historical [facility] Endocrinology-[facility] [place] [address] [address] Brice Oconnell, [place] [address] [place] [address] DM w/o Complication Type II, Uncontrolled (Primary Dx); Other and Unspecified Hyperlipidemia; Unspecified Essential Hypertension Social History Tobacco Use Types Packs/Day Years Used Date Smoking Tobacco: Never Assessed Comments Unknown Sex and Gender Information Value Date Recorded Sex Assigned at Not on file Legal Sex Female 5:34 AM SPECIAL PROGRAMS DIRECTOR Gender Identity Not on file Sexual Orientation Not on file documented as of this encounter Plan of Treatment Not on file documented as of this encounter Visit Diagnoses Diagnosis Type II or unspecified type diabetes mellitus without mention of complication, uncontrolled- Primary Other and unspecified hyperlipidemia Unspecified essential hypertension documented in this encounter Care Teams Event Mgr Relationship Specialty Start Date End Date Jayesh Krueger MD [address] [place] [address] PCP - General Internal Medicine 12/19/16 documented as of this encounter
--- OUTSIDE RECORDS SUMMARY | 2025-02-10 10:04 | XMS_ITS | Clinical Summary ---
Author Organization [facility] Address [address] [facility] [place] [address] Care Team Providers Care Sterile Instrument Technician Name Role Phone Jayesh Krueger MD [...] on file Legal Sex Female 5:34 AM DISTRIBUTING CLERK Gender Identity Not on file Sexual Orientation Not on file Occupation Industry Job Start Date Job End Date Not on file Not on file Not on file Not on file Last Filed Vital Signs Vital Sign Reading Time Taken Comments Blood Pressure 136/76 04/30/2020 8:37 AM CDT Pulse 72 04/30/2020 8:37 AM CDT Temperature 36.4 C (97.5 F) 06/10/2013 9:02 AM DISTRIBUTING CLERK Respiratory Rate 11 06/10/2013 4:00 PM DISTRIBUTING CLERK Oxygen Saturation 95% 06/10/2013 4:00 PM DISTRIBUTING CLERK Inhaled Oxygen Concentration - - Weight 85.3 [...] 2025 05/12/2013 Medical Devices Implanted Type Area Rivet Hammer Machine Operator Device Identifier Shelf Expiration Date Model / Serial / Lot Cement Palacos Sgl [id number] - [id number] Implanted:Qty: 1 on 04/02/2013 at [facility] Cement Left: Knee [employer] 11/05/2017 [id number] 0- / / [id number] Tray Tib Mabel Uni Szb Lm [id number] - [id number] Implanted:Qty: 1 on 04/02/2013 at [facility] Knee Left: Knee [employer] 07/08/2022 [id number] / / [id number] Bearing Ruthie Mathew Md Sz 5 [id number] - [id number] Implanted:Qty: 1 on 04/02/2013 at [facility] Knee Left: Knee [employer] 07/08/2016 [id number] / / [id number] Mabel Partial Knee System, Cemented Twin Pegged Femoral Implanted:Qty: 1 on 04/02/2013 by Jean-Paul Kirkland MD at [facility] Left: Knee [employer] 10/06/2022 [id number] / / [id number] Procedures Procedure Name Priority Date/Time Associated Diagnosis [...] 9:15 AM CDT) MICROALBUMIN, URINE 0.2 mg/dL [facility] Comment: Unable to flag abnormal result(s), please refer to reference range(s) below: Reference Range: Not established Creatinine, Urine 37.9 20 - 320 mg/dL [facility] MICROALBUMIN/CREA T RATIO, UR 5 <30.0 mcg/mg Cr [facility] Comment: The ADA (Diabetes Care 26: S94-S98, 2003) defines abnormalities in albumin excretion as follows: Category Result (mcg/mg creatinine) Normal <30 Microalbuminuria 30-299 Clinical albuminuria > or = 300 The ADA recommends that at least two of three specimens collected within a 3-6 month period be abnormal before considering a patient to be within a diagnostic category. Test Performed by [facility] [employer], [employer] [facility], [address] [place] [address] Leonel Jarquin M.D., Ph.D., Director of Laboratories , CLIA [id number] 12/13/2009 9:15 AM CDT 12/13/2009 10:51 AM CDT Comment:URINE us Brice VARGAS URINE ORDERABLES Final Resul t Performing Organization Address [facility] [address] [facility] Phone Number INTERFACE SYSTEM Refer to clinic/hospital department [facility] CLIA# [id number] [facility] [place] [address] * (ABNORMAL) HEMOGLOBIN A1C (12/13/2009 9:12 AM CDT) HEMOGLOBIN A1C 7.7(H) 4.0 - 6.0 %A1C [facility] Blood specimen (specimen) 12/13/2009 9:12 AM CDT 12/13/2009 9:26 AM CDT us Brice VARGAS CHEMISTRY ORDERABLES Final R esult Performing Organization Address [facility] [address]/[facility] Phone Number INTERFACE SYSTEM Refer to clinic/hospital department [facility] CLIA# [id number] [address] [place] [address] * (ABNORMAL) LIPID PANEL (12/13/2009 9:12 AM CDT) CHOLESTEROL 121 0 - 200 mg/dL [facility] TRIGLYCERIDE 291(H) 0 - 150 mg/dL [facility] HDL 16(L) 40 - 60 mg/dL [facility] LDL CALCULATED 47 0 - 100 mg/dL [facility] Comment: Calculated LDL Reference: <100 Optimal 100-129 Near Optimal 130-159 Borderline High >160 High Risk CALCULATED TOTAL CHOLESTEROL TO HDL RATIO 7.56(H) 3.27 - 4.44 [facility] Blood specimen (specimen) 12/13/2009 9:12 AM CDT 12/13/2009 9:26 AM CDT Brice VARGAS CHEMISTRY ORDERABLES Edited INTERFACE SYSTEM Refer to clinic/hospital department [facility] CLIA# [id number] [facility] [place] [address] from Last 3 Months or Most Recently Relevant to [place] [address] MEDICARE PART A AND B [employer] Advance Directives For more information, please contact: [phone] * Full Code (Latest Code Status on File) Date Activated Date Inactivated Comments 04/02/2013 10:34 AM 04/03/2013 5:21 PM * Full Code Date Activated Date Inactivated Comments 04/02/2013 6:45 AM 04/02/2013 10:34 AM Care Teams Sterile Instrument Technician Relationship Specialty Start Date End Date Jayesh Krueger MD [address] [place] [address] PCP - General Internal Medicine 12/19/16
--- OUTSIDE RECORDS SUMMARY | 2025-02-10 10:04 | XMS_ITS | Encounter Summary ---
Author Organization [facility] Address [address] [place] [address] Care Team Providers Care Drive In Theater Attendant Name Role Phone Jayesh Krueger MD Primary Care Provider [phone] Encounter Details Date Type Department Care Team (Latest Contact Info) Description 07/03/2006 Outpatient Historical [facility] Endocrinology-[facility] [place] [address] [place] [address] Chin Patel MD NO ADDRESS ON FILE DM w/o Complication Type II, Uncontrolled (Primary Dx); Other and Unspecified Hyperlipidemia; Unspecified Essential Hypertension Social History Tobacco Use Types Packs/Day Years Used Date Smoking Tobacco: Never Assessed Comments Unknown Sex and Gender Information Value Date Recorded Sex Assigned at Not on file 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
[2025-02-10 11:16] VITALS: RESP 16
[2025-02-10] MEDS: morphine 4 mg/mL SDV 1 mL IM (11:16)
[2025-02-10] MEDS: ondansetron 2 mg/ML SDV 2 mL 4 MG IM (11:17)
[2025-02-10 12:13] VITALS: BP 173/67; PULSE 83; O2SAT 97
== END 2025-02-10 12:13 | disposition home or self-care (01) ==
PROVIDERS: Emergency Provider Physician Assistant; PCP Family Medicine
DX: S70.01XA Contusion of right hip, initial encounter (principal); S70.11XA Contusion of right thigh, initial encounter; W19.XXXA Unspecified fall, initial encounter; Z79.82 Long term (current) use of aspirin; E78.5 Hyperlipidemia, unspecified; Z86.73 Personal history of transient ischemic attack (TIA), and cerebral infarction without residual deficits; E11.9 Type 2 diabetes mellitus without complications; I10 Essential (primary) hypertension
CPT/HCPCS: 70450; 72100; 73502; 96372; 99284; J2270; J2405

== ENCOUNTER → 2025-02-18 15:19 | Outpatient (BNVA) | payer MEDICARE, OTHER, SELFPAY | PROVIDERS: PCP Family Medicine; Visit Provider Internal Medicine Cardiovascular Disease | DX: I48.20 Chronic atrial fibrillation, unspecified (principal); Z79.82 Long term (current) use of aspirin; I48.92 Unspecified atrial flutter; E78.5 Hyperlipidemia, unspecified; I10 Essential (primary) hypertension; I25.10 Atherosclerotic heart disease of native coronary artery without angina pectoris; Z86.73 Personal history of transient ischemic attack (TIA), and cerebral infarction without residual deficits; I48.91 Unspecified atrial fibrillation; R07.9 Chest pain, unspecified | CPT/HCPCS: 93005; 99204 ==

== ENCOUNTER → 2025-02-23 13:30 | Outpatient (BNVA) | payer MEDICARE, OTHER, SELFPAY | PROVIDERS: PCP Family Medicine; Visit Provider Nurse Practitioner | DX: Z96.651 Presence of right artificial knee joint (principal) | CPT/HCPCS: 73562; 99214 ==

== ENCOUNTER → 2025-02-25 13:30 | Outpatient (BNVA) | payer MEDICARE, OTHER, SELFPAY | PROVIDERS: PCP Family Medicine; Visit Provider Podiatrist Foot & Ankle Surgery | DX: E11.42 Type 2 diabetes mellitus with diabetic polyneuropathy (principal); M86.8X7 Other osteomyelitis, ankle and foot; Z79.4 Long term (current) use of insulin | CPT/HCPCS: 99213 ==

== ENCOUNTER → 2025-03-04 14:10 | Outpatient (BNVA) | payer MEDICARE, OTHER, SELFPAY | PROVIDERS: PCP Family Medicine; Visit Provider Podiatrist Foot & Ankle Surgery | DX: E11.42 Type 2 diabetes mellitus with diabetic polyneuropathy (principal); Z89.412 Acquired absence of left great toe; Z79.4 Long term (current) use of insulin | CPT/HCPCS: 99213 ==

== ENCOUNTER 2025-04-09 14:05 | Emergency (ER) | payer MEDICARE, OTHER, SELFPAY ==
--- OUTSIDE RECORDS SUMMARY | 2025-04-09 14:11 | XMS_ITS | Encounter Summary ---
Author Organization [facility] Address [address] [place] [address] Care Team Providers Care Shovel Logger Name Role Phone Jayesh Krueger MD Primary Care Provider [phone] Encounter Details Date Type Department Care Team (Latest Contact Info) Description 11/04/2004 Outpatient Historical [facility] Endocrinology-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
--- OUTSIDE RECORDS SUMMARY | 2025-04-09 14:11 | XMS_ITS | Encounter Summary ---
Author Organization [facility] Address [address] [place] [address] Care Team Providers Care Outpatient Interviewing Clerk Name Role Phone Jayesh Krueger MD Primary Care Provider [phone] Encounter Details Date Type Department Care Team (Latest Contact Info) Description 12/31/2003 Outpatient Historical [facility] Endocrinology-[facility] [place] [address] [place] [address] Chin Patel MD NO ADDRESS ON FILE DIABETES UNCOMPL ADULT-TYPE II (CMS/[facility]) (Primary Dx); HYPERLIPIDEMIA NEC/NOS; HYPERTENSION NOS; HYPOTHYROIDISM NOS Social History Tobacco Use Types Packs/Day Years Used Date Smoking Tobacco: Never Assessed Comments Unknown Sex and Gender Information Value Date Recorded Sex Assigned at Not on file 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 Gender Identity Not on file Sexual Orientation Not on file documented as of this encounter Plan of Treatment Not on file documented as of this encounter Visit Diagnoses Diagnosis Type II or unspecified type diabetes mellitus without mention of complication, not stated as uncontrolled- Primary Other and unspecified hyperlipidemia Unspecified essential hypertension Unspecified hypothyroidism documented in this encounter Care Teams Outpatient Interviewing Clerk Relationship Specialty Start Date End Date Jayesh Krueger MD [address] [place] [address] PCP - General Internal Medicine 12/19/16 documented as of this encounter
--- OUTSIDE RECORDS SUMMARY | 2025-04-09 14:11 | XMS_ITS | Encounter Summary ---
Author Organization [facility] Address [address] [place] [address] Care Team Providers Care Preliminary School Psychologist Name Role Phone Jayesh Krueger MD Primary Care Provider [phone] Encounter Details Date Type Department Care Team (Latest Contact Info) Description 07/05/[address] 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
--- OUTSIDE RECORDS SUMMARY | 2025-04-09 14:11 | XMS_ITS | Encounter Summary ---
Author Organization [facility] Address [address] [place] [address] Care Team Providers Care Blindstitch Machine Operator Name Role Phone Jayesh Krueger MD Primary Care Provider [phone] Encounter Details Date Type Department Care Team (Latest Contact Info) Description 05/08/2005 Outpatient Historical [facility] Endocrinology-[facility] [place] [address] [place] [address] Chin Patel MD NO ADDRESS ON FILE DIABETES MELLITUS TYPE II-UNCOMPL (CMS/HCC) (Primary Dx); HYPERLIPIDEMIA NEC/NOS; HYPERTENSION NOS Social History Tobacco Use Types Packs/Day Years Used Date Smoking Tobacco: Never Assessed Comments Unknown Sex and Gender Information Value Date Recorded Sex Assigned at Not on file Legal Sex Female 5:34 AM PATIENT ESCORT Gender Identity Not on file Sexual Orientation Not on file documented as of this encounter Plan of Treatment Not on file documented as of this encounter Visit Diagnoses Diagnosis Type II or unspecified type diabetes mellitus without mention of complication, not stated as uncontrolled- Primary Other and unspecified hyperlipidemia Unspecified essential hypertension documented in this encounter Care Teams Blindstitch Machine Operator Relationship Specialty Start Date End Date Jayesh Krueger MD [address] [place] [address] PCP - General Internal Medicine 12/19/16 documented as of this encounter
--- OUTSIDE RECORDS SUMMARY | 2025-04-09 14:11 | XMS_ITS | Encounter Summary ---
Author Organization [facility] Address [address] [place] [address] Care Team Providers Care Stamp Redemption Clerk Name Role Phone Jayesh Krueger MD Primary Care Provider [phone] Encounter Details Date Type Department Care Team (Latest Contact Info) Description 05/03/2004 Outpatient Historical [facility] Endocrinology-[facility] [place] [address] [place] [address] Chin Patel MD NO ADDRESS ON FILE DIABETES MELLITUS TYPE II-UNCOMPL (CMS/HCC) (Primary Dx); HYPERLIPIDEMIA NEC/NOS; HYPERTENSION NOS; HYPOTHYROIDISM NOS Social History Tobacco Use Types Packs/Day Years Used Date Smoking Tobacco: Never Assessed Comments Unknown Sex and Gender Information Value Date Recorded Sex Assigned at Not on file 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 Gender Identity Not on file Sexual Orientation Not on file documented as of this encounter Plan of Treatment Not on file documented as of this encounter Visit Diagnoses Diagnosis Type II or unspecified type diabetes mellitus without mention of complication, not stated as uncontrolled- Primary Other and unspecified hyperlipidemia Unspecified essential hypertension Unspecified hypothyroidism documented in this encounter Care Teams Stamp Redemption Clerk Relationship Specialty Start Date End Date [place]esh Krueger MD [address] [place] [address] PCP - General Internal Medicine 12/19/16 documented as of this encounter
[2025-04-09 14:12] VITALS: BP 116/63; PULSE 60; RESP 16; TEMP 36.9; O2SAT 95; BMI 27.4
--- OUTSIDE RECORDS SUMMARY | 2025-04-09 14:12 | XMS_ITS | Encounter Summary ---
Author Organization [facility] Address [address] [place] [address] Care Team Providers Care Authorization Representative Name Role Phone Jayesh Krueger MD Primary Care Provider [phone] Encounter Details Date Type Department Care Team (Latest Contact Info) Description 01/12/2003 Inpatient Historical [facility] Operating Room [address] 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
--- OUTSIDE RECORDS SUMMARY | 2025-04-09 14:12 | XMS_ITS | Clinical Summary ---
Author Organization [facility] Address [address] [facility] [place] [address] Care Team Providers Care Institution Librarian Name Role Phone Jayesh Krueger MD Primary Care Provider [phone] Allergies Active Allergy Reactions Criticality Noted Date [...] file Legal Sex Female 5:34 AM CUSTOMER SUCCESS REPRESENTATIVE Gender Identity Not on file Sexual Orientation Not on file Occupation Industry Job Start Date Job End Date Not on file Not on file Not on file Not on file Last Filed Vital Signs Vital Sign Reading Time Taken Comments Blood Pressure 136/76 04/30/2020 8:37 AM CDT Pulse 72 04/30/2020 8:37 AM CDT Temperature 36.4 C (97.5 F) 06/10/2013 9:02 AM CUSTOMER SUCCESS REPRESENTATIVE Respiratory Rate 11 06/10/2013 4:00 PM CUSTOMER SUCCESS REPRESENTATIVE Oxygen Saturation 95% 06/10/2013 4:00 PM CUSTOMER SUCCESS REPRESENTATIVE Inhaled Oxygen Concentration - - Weight 85.3 [...] 2025 05/12/2013 Medical Devices Implanted Type Area Comsec Manager Device Identifier Shelf Expiration Date Model / Serial / Lot Cement Palacos Sgl [id number] - [id number] Implanted:Qty: 1 on 04/02/2013 at [facility] Cement Left: Knee [employer] 11/05/2017 00-1112-14 0- / / [id number] Tray Tib Smyth Uni Szb Lm [id number] - [id number] Implanted:Qty: 1 on 04/02/2013 at [facility] Knee Left: Knee [employer] 07/08/2022 [id number] / / [id number] Bearing Ruthie Mathew Md Sz 5 [id number] - [id number] Implanted:Qty: 1 on 04/02/2013 at [facility] Knee Left: Knee [employer] 07/08/2016 [id number] / / [id number] Smyth Partial Knee System, Cemented Twin Pegged Femoral Implanted:Qty: 1 on 04/02/2013 by Jean-Paul Kirkland MD at [facility] Left: Knee [employer] 10/06/2022 [id number] / / [id number] Procedures Procedure Name Priority Date/Time Associated Diagnosis [...] 9:15 AM CDT) MICROALBUMIN, URINE 0.2 mg/dL [facility] Comment: Unable to flag abnormal result(s), please refer to reference range(s) below: Reference Range: Not established Creatinine, Urine 37.9 20 - 320 mg/dL [facility] MICROALBUMIN/CREA T RATIO, UR 5 <30.0 mcg/mg Cr [facility] Comment: The ADA (Diabetes Care 26: S94-S98, 2003) defines abnormalities in albumin excretion as follows: Category Result (mcg/mg creatinine) Normal <30 Microalbuminuria 30-299 Clinical albuminuria > or = 300 The ADA recommends that at least two of three specimens collected within a 3-6 month period be abnormal before considering a patient to be within a diagnostic category. Test Performed by [employer] [facility], [address] [place] [address] Leonel Jarquin M.D., Ph.D., Director of Laboratories , CLIA [id number] 12/13/2009 9:15 AM CDT 12/13/2009 10:51 AM CDT Comment:URINE us Brice VARGAS URINE ORDERABLES Final Resul t Performing Organization Address [facility] Phone Number INTERFACE SYSTEM Refer to clinic/hospital department [facility] CLIA# [id number] [facility] [place] [address] * (ABNORMAL) HEMOGLOBIN A1C (12/13/2009 9:12 AM CDT) HEMOGLOBIN A1C 7.7(H) 4.0 - 6.0 %A1C [facility] Blood specimen (specimen) 12/13/2009 9:12 AM CDT 12/13/2009 9:26 AM CDT us Brice VARGAS CHEMISTRY ORDERABLES Final R esult Performing Organization Address [facility] Phone Number INTERFACE SYSTEM Refer to clinic/hospital department [facility] CLIA# [id number] [address] [place] [address] * (ABNORMAL) LIPID PANEL (12/13/2009 9:12 AM CDT) CHOLESTEROL 121 0 - 200 mg/dL [facility] TRIGLYCERIDE 291(H) 0 - 150 mg/dL [facility] HDL 16(L) 40 - 60 mg/dL [facility] LDL CALCULATED 47 0 - 100 mg/dL [facility] Comment: Calculated LDL Reference: <100 Optimal 100-129 Near Optimal 130-159 Borderline High >160 High Risk CALCULATED TOTAL CHOLESTEROL TO HDL RATIO 7.56(H) 3.27 - 4.44 [facility] Blood specimen (specimen) 12/13/2009 9:12 AM CDT 12/13/2009 9:26 AM CDT Brice VARGAS CHEMISTRY ORDERABLES Edited INTERFACE SYSTEM Refer to clinic/hospital department [facility] CLIA# [id number] [facility] [place] [address] from Last 3 Months or Most Recently Relevant to [place] [address] MEDICARE PART A AND B jobandtalent Advance Directives For more information, please contact: [phone] * Full Code (Latest Code Status on File) Date Activated Date Inactivated Comments 04/02/2013 10:34 AM 04/03/2013 5:21 PM * Full Code Date Activated Date Inactivated Comments 04/02/2013 6:45 AM 04/02/2013 10:34 AM Care Teams Institution Librarian Relationship Specialty Start Date End Date Jayesh Krueger MD [address] [place] [address] PCP - General Internal Medicine 12/19/16
--- OUTSIDE RECORDS SUMMARY | 2025-04-09 14:12 | XMS_ITS | Encounter Summary ---
Author Organization [facility] Address [address] [place] [address] Care Team Providers Care Proofing Machine Operator Name Role Phone Jayesh Krueger MD Primary Care Provider [phone] Encounter Details Date Type Department Care Team (Latest Contact Info) Description 10/31/2006 Outpatient Historical [facility] Endocrinology-[facility] [place] [address] [address] Brice [place]con[place], [place] [address] 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 Gender Identity Not on file Sexual Orientation Not on file documented as of this encounter Plan of Treatment Not on file documented as of this encounter Visit Diagnoses Diagnosis Type II or unspecified type diabetes mellitus without mention of complication, not stated as uncontrolled- Primary Other and unspecified hyperlipidemia Unspecified essential hypertension documented in this encounter Care Teams Proofing Machine Operator Relationship Specialty Start Date End Date Jayesh Krueger MD [address] [place] [address] PCP - General Internal Medicine 12/19/16 documented as of this encounter
--- OUTSIDE RECORDS SUMMARY | 2025-04-09 14:12 | XMS_ITS | Encounter Summary ---
Author Organization [facility] Address [address] [place] [address] Care Team Providers Care Heating And Ventilating Drafter Name Role Phone Jayesh Krueger MD Primary Care Provider Encounter Details Date Type Department Care Team (Latest Contact Info) Description 11/06/2005 Outpatient Historical [facility] Endocrinology-[facility] [place] [address] [place] [address] Chin Patel MD NO ADDRESS ON FILE DM w/o Complication Type II (CMS/HCC) (Primary Dx); Other and Unspecified Hyperlipidemia; Unspecified Essential Hypertension Social History Tobacco Use Types Packs/Day Years Used Date Smoking Tobacco: Never Assessed Comments Unknown Sex and Gender Information Value Date Recorded Sex Assigned at Not on file 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 Gender Identity Not on file Sexual Orientation Not on file documented as of this encounter Plan of Treatment Not on file documented as of this encounter Visit Diagnoses Diagnosis Type II or unspecified type diabetes mellitus without mention of complication, not stated as uncontrolled- Primary Other and unspecified hyperlipidemia Unspecified essential hypertension documented in this encounter Care Teams Heating And Ventilating Drafter Relationship Specialty Start Date End Date Jayesh Krueger MD [address] [place] [address] PCP - General Internal Medicine 12/19/16 documented as of this encounter
--- OUTSIDE RECORDS SUMMARY | 2025-04-09 14:12 | XMS_ITS | Encounter Summary ---
Author Organization [facility] Address [address] [place] [address] Care Team Providers Care Turret Lathe Machinist Name Role Phone Jayesh Krueger MD Primary Care Provider [phone] Encounter Details Date Type Department Care Team (Latest Contact Info) Description 12/13/1999 Outpatient Historical [facility] Nasir Uriostegui MD NO ADDRESS ON FILE Degeneration of cervical intervertebral disc (Primary Dx) Social History Tobacco Use Types Packs/Day Years Used Date Smoking Tobacco: Never Assessed Comments Unknown Sex and Gender Information Value Date Recorded Sex Assigned at Not on file Legal Sex Female 5:34 AM PROCESS CHECKER Gender Identity Not on file Sexual Orientation Not on file documented as of this encounter Plan of Treatment Not on file documented as of this encounter Visit Diagnoses Diagnosis Degeneration of cervical intervertebral disc- Primary documented in this encounter Care Teams Turret Lathe Machinist Relationship Specialty Start Date End Date Jayesh Krueger MD [address] [place] [address] PCP - General Internal Medicine 12/19/16 documented as of this encounter
--- OUTSIDE RECORDS SUMMARY | 2025-04-09 14:12 | XMS_ITS | Encounter Summary ---
Author Organization [facility] Address [address] Attn: [place] [address] Care Team Providers Care Day Camp Unit Leader Name Role Phone Jayesh Krueger MD Primary Care Provider [phone] Encounter Details Date Type Department Care Team (Late st Contact Info) Description 05/24/2000 Outpatient Historical Thomas Dailey MD [address] 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
--- OUTSIDE RECORDS SUMMARY | 2025-04-09 14:12 | XMS_ITS | Encounter Summary ---
Author Organization [facility] Address [address] [place] [address] Care Team Providers Care Global Cmo Name Role Phone Jayesh Krueger MD Primary Care Provider [phone] Encounter Details Date Type Department Care Team (Late st Contact Info) Description 09/01/1999 Outpatient Historical [facility] Cardiac Thoracic Vascular Surg [place] [address] [place] [address] Social History Tobacco Use Types Packs/Day Years Used Date Smoking Tobacco: Never Assessed Comments Unknown Sex and Gender Information Value Date Recorded Sex Assigned at Not on file Legal Sex Female 5:34 AM TEST PREPARATION TUTOR Gender Identity Not on file Sexual Orientation Not on file documented as of this encounter Plan of Treatment Not on file documented as of this encounter Visit Diagnoses Not on filedocumented in this encounter Care Teams Global Cmo Relationship Specialty Start Date End Date Jayesh Krueger MD [address] [place] [address] PCP - General Internal Medicine 12/19/16 documented as of this encounter
--- OUTSIDE RECORDS SUMMARY | 2025-04-09 14:12 | XMS_ITS | Encounter Summary ---
Author Organization [facility] Address [address] [place] [address] Care Team Providers Care Computer Aided Design Designer Name Role Phone Jayesh Krueger MD Primary Care Provider [phone] Encounter Details Date Type Department Care Team (Late st Contact Info) Description 01/05/2003 Outpatient Historical [facility] Thomas Dailey MD [address] 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
--- OUTSIDE RECORDS SUMMARY | 2025-04-09 14:12 | XMS_ITS | Clinical Summary ---
Author Organization [facility] Address [address] [place] [address] Care Team Providers Care Healthcare Applications Analyst Name Role Phone Jayesh Krueger MD Primary Care Provider [phone] Allergies Active Allergy Reactions Criticality Noted Date [...] on file Legal Sex Female 12:52 AM ASSISTED LIVING EXECUTIVE DIRECTOR Gender Identity Not on file Sexual [...] Screening 08/28/2026 Medical Devices Implanted Type Area Sales And Service Officer Device Identifier Shelf Expiration Date Model / Serial / Lot Cement Palacos Sgl [id number] - [id number] Implanted:Qty: 1 on 04/02/2013 Cement Left: Knee [employer] 11/05/2017 00-1112-14 0- / / [id number] Bearing Ruthie Mathew Md Sz 5 [id number] - [id number] Implanted:Qty: 1 on 04/02/2013 Knee Left: Knee [employer] 07/08/2016 [id number] / / [id number] Tray Tib Orange Uni Szb Lm [id number] - [id number] Implanted:Qty: 1 on 04/02/2013 Knee Left: Knee [employer] 07/08/2022 [id number] / / [id number] Orange Partial Knee System, Cemented Twin Pegged Femoral Implanted:Qty: 1 on 04/02/2013 by Jean-Paul Kirkland MD Left: Knee [employer] 10/06/2022 [id number] / / [id number] Insurance MEDICARE PART A AND B [facility] Care Teams Healthcare Applications Analyst Relationship Specialty Start Date End Date Jayesh Krueger MD [address] [place] [address] PCP - General 10/21/20
--- OUTSIDE RECORDS SUMMARY | 2025-04-09 14:12 | XMS_ITS | Data Portability ---
Author Organization JODY - Demetrius Carreon [facility] Rowan Mariano [facility] Address [address] [facility] [address] [place] [address] Assessment No assessment recorded. Plan of Treatment Reminders Order Date Submit Date Provider Last Modified By Organization Details Last Modified Time Details Appointments None recorded. Lab None recorded. Referral None recorded. Procedures arthrocente sis, aspiration and/or injection, major joint or bursa (PROC) 2024 025 asurface Not available 15:34:23 Surgeries None recorded. Imaging None recorded. Medication Orders None recorded. Patient TargetsNo targets recorded. Patient Instructions Encounter Date Encounter Id Patient Instructions Last Modified By Organization Details Last Modified Time 02/18/2025 [id number] Sugars consistently over 200. Was on ozempic at home. Discussed bringing ozempic in from home and she agrees. Will also d/c glimepride and start tresiba 15 units at hs. [email or web address] Not available 02/19/2025 13:24:46 02/23/2025 [id number] Discussed possib ly related to medications vs recent TIA's vs electrolyte abnormalities. Labs pending. [email or web address] Not available 02/23/2025 17:12:35 03/04/2025 [id number] Agrees to stop pain pill and continue relaxant. Discussed goals for hours of sleep decrease with age. encouraged to avoid naps, stay active during the day. Currently on sleep aid, will give her time to adjust behaviors. f/u soon. [email or web address] Not available 03/04/2025 15:28:13 03/11/2025 [id number] More clear heade d as she is no longer taking narcotics but continues to have shoulder pain Plan for injection on Sunday. [email or web address] Not available 03/11/2025 15:21:48 03/16/2025 [id number] Right shoulder injected with 1ml betamethasone and 1ml lidocaine without issues. Tolerated injection well. [email or web address] Not available 03/16/2025 14:34:37 Reason for Referral None Reported. Problems Name Problem SNOMED Code Status Onset Date Resolution Date Notes Provider Name and Address Organization Details Recorded Time Benign essential hypertens ion 6230383 Active 2021 Hypertens ion; 2 4:38PM by Desiree Rodrigez, Office Visit; Promoted; acuity set as *; Not Available [facility] 3 03:10:42 Transient ischemic attack due to embolism 630565278 Active 2021 TIA x6; 2 4:38PM by Desiree Rodrigez, Office Visit; Promoted; acuity set as *; Not Available [facility] 3 03:10:42 Gallbladd er endoscopy Active 2021 Gallbladd er removed; 2 4:38PM by Desiree Rodrigez, Office Visit; Promoted; acuity set as *; Not Available [facility] 3 03:10:42 Total hysterect rupali Active 2021 Hysterect rupali, Total; 2 4:38PM by Desiree Rodrigez, Office Visit; Promoted; acuity set as *; Not Available [facility] 3 03:10:42 Hyperlipi demia 92638518 Active 2021 Hyperlipi demia; 2 4:38PM by Desiree Rodrigez, Office Visit; Promoted; acuity set as *; Not Available [facility] 3 03:10:42 Post-disc harge follow-up 725974224 Active 2024 BENITA stein [facility], [facility] 5 17:28:24 History of amputatio n of left great toe 02614296260 540359 Active 2024 BENITA stein [facility], [facility] 5 17:28:25 Osteomyel itis of forefoot 505577838 [facility] 17:28:26 Chronic atrial fibrillat ion 504652184 [facility] 17:28:27 Hyperglyc emia due to type 2 diabetes mellitus 08266320816 9109 Active 2024 [facility] 13:23:45 Problem Notes None recorded. Medical Equipment None Reported. Allergies Allergen ID Allergen Name Allergen Category Reaction Reaction Severity Criticality Documentation Date Start Date Code Code System Note Provider Name and Address Organization Details Recorded Time 88273 Zithromax medicatio n hives Not available Not available 02/03/2023 4 RxNorm React ion: Hives ; Comme nt: Recor ded 03/30 4:38P M by Bruce Rodrigez, Offic e Visit ; Promo rodo; Signi lisa ce: *; ; Not Available [facility] 3 02:28:22 85356 Zestril medicatio n hives Not available Not available 02/03/2023 2 RxNorm React ion: Hives ; Comme nt: Recor ded 03/30 4:38P M by Bruce Rodrigez Offic e Visit ; Promo rodo; Amyi lisa ce: *; ; Not Available [facility] 3 02:28:23 Medications Name Sig Start Date Stop Date Status Note LastModified by Organization Details LastModified Time Singulair 10 mg tablet active 0; Recorded 03/30/20 4:38PM by Desiree Rodrigez, Office Visit; Not Available Not Available Not Available cyclobenz aprine 10 mg tablet TAKE 1 TABLET BY MOUTH THREE TIMES A DAY NEEDED FOR MUSCLE SPASM active Not Available Not Available No t Available doxycycli ne hyclate 100 mg capsule TAKE 1 CAPSULE BY MOUTH TWICE A DAY WITH FOOD FOR 10 DAYS 02/11 completed Not Available Not Available Not Available atorvasta tin 20 mg tablet TAKE 1 TABLET BY MOUTH EVERY DAY AT 10 AM active Not Available Not Available No t Available lamotrigi ne 200 mg tablet TAKE 1 TABLET BY MOUTH TWICE A DAY active Not Available Not Available No t Available hydrocodo ne 5 mg-acetam inophen 325 mg tablet Take 1 tablet every 8 hours by oral route as needed for 30 days. 2024 active Not Available Not Available Not Avai lable olanzapin e 5 mg tablet TAKE 1 TABLET BY MOUTH EVERYDAY AT BEDTIME active Not Available Not Available No t Available Lantus U-100 Insulin 100 unit/mL subcutane ous solution INJECT 20 UNITS SUBCUTAN EOUSLY BEDTIME active Not Available Not Available No t Available olanzapin e 10 mg tablet TAKE 1 TABLET BY MOUTH EVERYDAY AT BEDTIME active Not Available Not Available No t Available Zyrtec 10 mg tablet active 0; Recorded 03/30/20 4:38PM by Desiree Rodrigez, Office Visit; Not Available Not Available Not Available ciproflox acin 500 mg tablet TAKE 1 TABLET BY MOUTH EVERY 12 HOURS FOR 7 DAYS 02/11 completed Not Available Not Available Not Available hydrocodo ne 10 mg-acetam inophen 325 mg tablet TAKE ONE TABLET BY MOUTH EVERY 8 HOURS NEEDED FOR PAIN FOR 7 DAYS active Not Available Not Available No t Available spironola ctone 25 mg tablet active 0; Recorded 03/30/20 4:38PM by Desiree Rodrigez, Office Visit; Not Available Not Available Not Available Zocor 80 mg tablet active 0; Recorded 03/30/20 4:38PM by Desiree Rodrigez, Office Visit; Not Available Not Available Not Available cephalexi n 500 mg capsule TAKE 1 CAPSULE BY MOUTH TWICE A DAY 02/11 completed Not Available Not Available Not Available glimepiri de 4 mg tablet TAKE 1 TABLET BY MOUTH TWICE A DAY active Not Available Not Available No t Available lidocaine 5 % topical patch 1 PATCH TOPICALL Y DAILY LEAVE ON MOST PAINFUL AREA FOR UP TO 12 HRS THEN TAKE OFF active Not Available Not Available No t Available propranol ol ER 80 mg capsule,2 4 hr,extend ed release TAKE 1 CAPSULE BY MOUTH TWICE A DAY AT 10AM AND 9PM active Not Available Not Available No t Available levothyro xine 200 mcg tablet TAKE 1 TABLET BY MOUTH EVERY DAY AT 10AM active Not Available Not Available No t Available mupirocin 2 % topical ointment APPLY TO AFFECTED AREA TOPICALL Y TWICE A DAY 02/11 completed Not Available Not Available Not Available gabapenti n 100 mg capsule TAKE 1 CAPSULE BY MOUTH TWICE A DAY active Not Available Not Available No t Available diazepam 10 mg tablet TAKE 1 TABLET BY MOUTH TWICE A DAY NEEDED active Not Available Not Available No t Available fluoxetin e 20 mg capsule TAKE 1 CAPSULE BY MOUTH EVERY DAY IN THE MORNING active Not Available Not Available No t Available metronida zole 375 mg capsule TAKE 1 CAPSULE ORALLY TWICE A DAY FOR 7 DAYS 02/11 completed Not Available Not Available Not Available amoxicill in 875 mg-potass ium clavulana te 125 mg tablet TAKE 1 TABLET BY MOUTH TWICE A DAY FOR 7 DAYS 02/11 completed Not Available Not Available Not Available duloxetin e 60 mg capsule,d elayed release TAKE 2 CAPSULES BY MOUTH EVERY MORNING active Not Available Not Available No t Available Tricor 145 mg tablet active 0; Recorded 03/30/20 4:38PM by Desiree Rodrigez, Office Visit; Not Available Not Available Not Available ramelteon 8 mg tablet TAKE 1 TABLET BY MOUTH EVERY DAY AT BEDTIME NEEDED active Not Available Not Available No t Available Flonase active 0; Recorded 03/30/20 4:38PM by Desiree Rodrigez, Office Visit; Not Available Not Available Not Available Depakote QD active 0; Recorded 03/30/20 4:38PM by Desiree Rodrigez, Office Visit; Not Available Not Available Not Available Coumadin active 0; Recorded 03/30/20 4:38PM by Desiree Rodrigez, Office Visit; Not Available Not Available Not Available Atarax QID active 0; Recorded 03/30/20 4:38PM by Desiree Rodrigez, Office Visit; Not Available Not Available Not Available alprazola m active 0; Recorded 03/30/20 4:38PM by Desiree Rodrigez, Office Visit; Not Available Not Available Not Available Plavix active 0; Recorded 03/30/20 4:38PM by Desiree Rodrigez, Office Visit; Not Available Not Available Not Available Synthroid active 0; Recorded 03/30/20 4:38PM by Desiree Rodrigez, Office Visit; Not Available Not Available Not Available atenolol active 0; Recorded 03/30/20 4:38PM by Desiree Rodrigez, Office Visit; Not Available Not Available Not Available Prilosec active 0; Recorded 03/30/20 4:38PM by Desiree Rodrigez, Office Visit; Not Available Not Available Not Available clindamyc in HCl four times daily 2021 active Recorded 03/30/20 4:56PM by Roxie Braswell PA-C, Office Visit; Refill Quantity : 0; Not Available Not Available Not Available Altace active 0; Recorded 03/30/20 4:38PM by Desiree Rodrigez, Office Visit; Not Available Not Available Not Available metformin QD active 0; Recorded 03/30/20 4:38PM by Desiree Rodrigez, Office Visit; Not Available Not Available Not Available Flexeril TID active 0; Recorded 03/30/20 4:38PM by Desiree Rodrigez, Office Visit; Not Available Not Available Not Available Cymbalta active 0; Recorded 03/30/20 4:38PM by Desiree Rodrigez, Office Visit; Not Available Not Available Not Available quetiapin e 400 mg tablet TAKE 3 TABLETS BY MOUTH DAILY AT BEDTIME. active Not Available Not Available No t Available desvenlaf axine succinate ER 100 mg tablet,ex tended release 24 hr TAKE 1 TABLET BY MOUTH EVERY DAY IN THE MORNING active Not Available Not Available No t Available lurasidon e 20 mg tablet TAKE 1 TABLET BY MOUTH EVERYDAY AT BEDTIME active Not Available Not Available No t Available TRUEplus Insulin 1 mL 31 gauge x 5/16 syringe TO USE WITH INSULIN active Not Available Not Available No t Available MediHoney two times daily 2021 active Recorded 03/30/20 4:56PM by Roixe Braswell PA-C, Office Visit; Refill Quantity : 0; Not Available Not Available Not Available potassium chloride ER 20 mEq tablet,ex tended release TAKE 1 TABLET BY MOUTH EVERY DAY AT 10AM active Not Available Not Available No t Available Tresiba FlexTouch U-100 insulin 100 unit/mL (3 mL) subcutane ous pen INJECT 20 UNITS AT BEDTIME active Not Available Not Available No t Available Ozempic 0.25 mg or 0.5 mg (2 mg/3 mL) subcutane ous pen injector 0.5 MG (0.736 ML) SUBCUTAN EOUSLY WEEKLY ON active Not Available Not Available No t Available Ultra-Fin e Pen Needle 31 gauge x 3/16 TO USE WITH LANTUS active Not Available Not Available No t Available Vitals Date Recorded Body weight Heart rate Respiratory rate Body temperature Oxygen saturation Oxygen saturation in Arterial blood by Pulse oximetry Systolic And Diastolic Provider Name and Address Organization Details Last Updated DateTime 5 03152.8 1 g 90 /min 18 /min 97.3 [degF] 95 % 95 % 131/79 mm[Hg] [facility] 5 13:21:29 Date Recorded Body weight Heart rate Respiratory rate Body temperature Oxygen saturation Oxygen saturation in Arterial blood by Pulse oximetry Systolic And Diastolic Provider Name and Address Organization Details Last Updated DateTime 5 18802.8 1 g 86 /min 18 /min 97.4 [degF] 97 % 97 % 128/68 mm[Hg] [facility] 5 16:51:59 Date Recorded Body weight Heart rate Respiratory rate Body temperature Oxygen saturation Oxygen saturation in Arterial blood by Pulse oximetry Systolic And Diastolic Provider Name and Address Organization Details Last Updated DateTime 5 09126.8 1 g 80 /min 18 /min 97.4 [degF] 96 % 96 % 115/67 mm[Hg] [facility] 5 15:25:05 Date Recorded Body weight Heart rate Respiratory rate Body temperature Oxygen saturation Oxygen saturation in Arterial blood by Pulse oximetry Systolic And Diastolic Provider Name and Address Organization Details Last Updated DateTime 5 00888.8 9 g 84 /min 18 /min 97.3 [degF] 91 % 91 % 108/80 mm[Hg] [facility] 5 14:49:16 Date Recorded Body weight Heart rate Respiratory rate Body temperature Oxygen saturation Oxygen saturation in Arterial blood by Pulse oximetry Systolic And Diastolic Provider Name and Address Organization Details Last Updated DateTime 5 24721.8 9 g 76 /min 22 /min 97.3 [degF] 94 % 94 % 139/80 mm[Hg] BENITA OROZCO [facility] 5 14:31:19 Social History None recorded. Functional Status None recorded. Mental Status None recorded. Family History Nothing Reported. Medical History No medical history recorded. Gynecological HistoryNo gynecological history recorded. Obstetrics History GPAL:G 0 P 0 0 0 0 Immunizations Vaccine Type Date Status Note Provider Nam e and Address Organization Details Recorded Time Influenza, split virus, quadrivalent, PF 8 completed Not Available [facility] 03/16/2025 13:29:41 Influenza, split virus, quadrivalent, PF 2 completed Not Available [facility] 03/16/2025 13:29:41 Influenza, high-dose, quadrivalent, PF 3 completed Not Available [facility] 03/16/2025 13:29:41 zoster recombinant 3 completed Not Available [facility] 03/16/2025 13:29:41 COVID-19, mRNA, LNP-S, PF, 50 mcg/0.5 mL 3 completed Not Available [facility] 03/16/2025 13:29:41 Influenza, high-dose, trivalent, PF 4 completed Not Available [facility] 03/16/2025 13:29:41 COVID-19, mRNA, LNP-S, PF, 50 mcg/0.5 mL 4 completed Not Available [facility] 03/16/2025 13:29:41 Td(adult) unspecified formulation 2 completed Not Available [facility] 02/03/2023 02:27:32 Past Encounters Encounter ID Performer Location Encounter Start Date Encounter Closed Date Diagnosis/Indication Diagnosis SNOMED-CT Code Diagnosis ICD10 Code Diagnosis IMO Codes Diagnosis Note [id number] Darryn Cardoso DO [facility] ([facility]) [address] [place] [address] 02/11/2025 13:10:08 02/17/2025 12:06:33 Post-discharge follow-up 092842167 Z09 807963 History of amputation of left great toe 5491275757 1914331 Z89.412 98945473 Osteomyeli tis of forefoot 787174571 M86.9 4176612919 Chronic at rial fibrillation 697490041 I48.20 [id number] Darryn Cardoso [facility] ([facility]) [address] [place] [address] 02/18/2025 12:58:33 02/23/2025 11:38:39 History of amputation of left great toe 7739692270 3641396 Z89.412 85865799 Benign ess ential hypertension 9460222 I10 Hyperglyce kedar due to type 2 diabetes mellitus 7961376894 03941 E11.65 [id number] Darryn Cardoso [facility] ([facility]) [address] [place], [place] [address] 02/23/2025 13:36:40 02/24/2025 16:47:22 Tremor 75094519 R25.1 [id number] Darryn Cardoso [facility] ([facility]) [address] [place], [place] [address] 03/04/2025 14:41:47 03/10/2025 11:52:18 Primary insomnia 1563118 F51.01 69925 Chronic pain 49126809 G8 9.29 755916 [id number] Darryn Cardoso [facility] ([facility]) [address] [place], [place] [address] 03/11/2025 12:36:43 03/13/2025 11:01:12 Tendinitis of right shoulder 2061403651 054202 M77.8 [id number] Darryn Cardoso [facility] ([facility]) [address] [place], [place] [address] 03/16/2025 13:29:19 03/17/2025 14:16:26 Biceps tendinitis 497465508 M75.21 [id number] Health Concerns Section Related Observation LastModified by Organization Detai ls LastModified Time None Recorded Concern Status LastModified by Organization Details LastModified Time None Recorded Advance Directives Directive None Recorded Payers Insurance Date Sequence Insurance Name Policy Number Policy Swain Covered Member ID Swain Member ID Guarantor Name 03/25/2025 2 UNSPECIFIED REMIT PAYOR Kaylee Butler Biesen 03/17/2025 2 [place]ETTE () Kaylee Butler Biesen [id number] Kaylee Butler Biesen 02/11/2025 1 *SELF PAY* Robert Butler Biesen 03/11/2025 [place] - [id number] (MEDICARE) Kaylee Riosesen [id number] Kaylee Butler Biesen 03/11/2025 1 [place] Kaylee Butler Biesen [id number] Kaylee Butler Biesen Notes Date Note Type Note Provider Name and Address Organization Details Recorded Time 5 text/html Care Management - Atrial FibrillationReported by PatientCare ManagementFor prognosis, patient reportsexpected outcome: improve. For duration, patient reportsless than 12 months but expected to become chronic. For medications, patient reportscompliant with medication.ROS as noted in the HPI staff and patient report elevated blood sugars. Patient was taking ozempic at home. Darryn Cardoso DO [address] [place] [address], [phone], [facility] 02/22/2025 14:33:07 5 text/html Care Management - Atrial FibrillationReported by PatientCare ManagementFor prognosis, patient reportsexpected outcome: improve. For duration, patient reportsless than 12 months but expected to become chronic. For medications, patient reportscompliant with medication.ROS as noted in the HPI c/o tremor in hands. Darryn Cardoso DO [address] [place] [address], [phone], [facility] 02/23/2025 17:12:48 5 text/html Care Management - Atrial FibrillationReported by PatientCare ManagementFor prognosis, patient reportsexpected outcome: improve. For duration, patient reportsless than 12 months but expected to become chronic. For medications, patient reportscompliant with medication.ROS as noted in the HPI reports not sleeping well at night, waking up around 2am, then becoming anxious she isn't sleeping. Additionally, staff reports when she take muscle relaxant and pain pill she becomes confused. Darryn CardosoDO [address] [place] [address], [phone], [facility] 03/08/2025 13:57:25 5 text/html Care Management - Atrial FibrillationReported by PatientCare ManagementFor prognosis, patient reportsexpected outcome: improve. For duration, patient reportsless than 12 months but expected to become chronic. For medications, patient reportscompliant with medication.ROS as noted in the HPI reports continued pain in shoulder. thinking improved since stopping norco. Darryn Cardoso [address] [place] [address], [phone], [facility] 03/11/2025 15:22:33 5 text/html Care Management - Atrial FibrillationReported by PatientCare ManagementFor prognosis, patient reportsexpected outcome: improve. For duration, patient reportsless than 12 months but expected to become chronic. For medications, patient reportscompliant with medication.ROS as noted in the HPI joint injection Darryn Cardoso [address] [place] [address], [phone], [facility] 03/16/2025 15:02:41 OBGyn Episode No OBEpisode recorded.
--- OUTSIDE RECORDS SUMMARY | 2025-04-09 14:12 | XMS_ITS | Encounter Summary ---
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
--- OUTSIDE RECORDS SUMMARY | 2025-04-09 14:12 | XMS_ITS | Encounter Summary ---
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
--- OUTSIDE RECORDS SUMMARY | 2025-04-09 14:12 | XMS_ITS | Encounter Summary ---
Author Organization [facility] Address [address] [facility] Attn: Epic Prelude ADT JODY SHAHID [address] Care Team Providers Care Liquid Sugar Fortifier Name Role Phone Jayesh Krueger MD Primary Care Provider [phone] Encounter Details Date Type Department Care Team (Late st Contact Info) Description 07/09/2000 Outpatient Historical Non-Staff, Physician NO ADDRESS ON FILE Social History Tobacco Use Types Packs/Day Years Used Date Smoking Tobacco: Never Assessed Comments Unknown Sex and Gender Information Value Date Recorded Sex Assigned at Not on file 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
--- OUTSIDE RECORDS SUMMARY | 2025-04-09 14:12 | XMS_ITS | Encounter Summary ---
Author Organization [facility] Address [address] Attgloria: [place] [address] Care Team Providers Care Worm Farm Laborer Name Role Phone Jayesh Krueger MD Primary Care Provider [phone] Encounter Details Date Type Department Care Team (Late st Contact Info) Description 02/27/2000 Outpatient Historical Thomas Dailey MD [address] 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
--- OUTSIDE RECORDS SUMMARY | 2025-04-09 14:12 | XMS_ITS | Encounter Summary ---
Author Organization [facility] Address [address] [facility] [address] [facility] Attn: [place] [address] Care Team Providers Care Major League Baseball Player Name Role Phone Jayesh Krueger MD Primary Care Provider Encounter Details Date Type Department Care Team (Late st Contact Info) Description 01/25/2000 Outpatient Historical Thomas Dailey MD [address] 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
--- OUTSIDE RECORDS SUMMARY | 2025-04-09 14:12 | XMS_ITS | Encounter Summary ---
Author Organization [facility] Address [address] [place] [address] Care Team Providers Care Tool Profiling Machine Set Up Operator Name Role Phone Jayesh Krueger MD Primary Care Provider [phone] Encounter Details Date Type Department Care Team (Latest Contact Info) Description 02/17/2003 Outpatient Historical [facility] Imaging Services [address] [place] [address] Thomas Dailey MD [address] [place] [address] SURGERY FOLLOWUP, OTHER (Primary Dx) Social History Tobacco Use Types Packs/Day Years Used Date Smoking Tobacco: Never Assessed Comments Unknown Sex and Gender Information Value Date Recorded Sex Assigned at Not on file Legal Sex Female 5:34 AM OVERNIGHT BABYSITTER Gender Identity Not on file Sexual Orientation Not on file documented as of this encounter Plan of Treatment Not on file documented as of this encounter Visit Diagnoses Diagnosis Follow-up examination, following other surgery- Primary documented in this encounter Care Teams Tool Profiling Machine Set Up Operator Relationship Specialty Start Date End Date Jayesh Krueger MD [address] [place] [address] PCP - General Internal Medicine 12/19/16 documented as of this encounter
--- OUTSIDE RECORDS SUMMARY | 2025-04-09 14:12 | XMS_ITS | Encounter Summary ---
Author Organization [facility] Address [address] [place] [address] Care Team Providers Care Insurance Premium Auditor Name Role Phone Jayesh Krueger MD Primary Care Provider [phone] Encounter Details Date Type Department Care Team (Latest Contact Info) Description 07/05/2005 Outpatient Historical [facility] Imaging Services-Rajesh Cleary [place] [address] [place] [address] Anthony Andrews, DPM [address] [place] [address] OTHER HAMMER TOE (Primary Dx) Social History Tobacco Use Types Packs/Day Years Used Date Smoking Tobacco: Never Assessed Comments Unknown Sex and Gender Information Value Date Recorded Sex Assigned at Not on file Legal Sex Female 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
--- OUTSIDE RECORDS SUMMARY | 2025-04-09 14:12 | XMS_ITS ---
Demographics Address [address] [place] [address] Home Phone Home Phone Phone Unavailable Preferred Language en Marital Status Unknown Christian Affiliation Unknown Race Unknown Ethnic Group Unknown Author Organization [facility] Care Team Providers Care Cyber Transport Systems Specialist Name Role Phone Russ Neri Unavailable Unavailable Nuvia Summers Unavailable Unavailable Allergies and adverse reactions Code CodeSystem Substance Reaction Severity StartDate Concern Status 41969 RXNORM Lisinopril Unknown 04/10/2018 active 48627 RXNORM Azithromycin Unknown 04/10/2018 active Care Team Name Role Address Phone Organization Dates Russ Neri PCP [address] [place], [address], [facility] (Office): : : [facility] [place] 04/09/2018 - 04/19/2018 Nuvia Summers [address] [place], [address], [place] (Office): : : [facility] [place] 04/09/2018 - 04/19/2018 Immunizations [...] ind icated PHQ-9 20 severe depressi on Insurance Providers Problems Problem # Description Date of onset Resolved Date Code CodeSystem Concern Status 1 ENCOUNTER FOR IMMUNIZATION 04/22/[address] active 2 TYPE 2 DIABETES MELLITUS WITHOUT COMPLICATIONS 04/11/[address] active 3 ACUTE KIDNEY FAILURE, UNSPECIFIED 04/09/[address] active 4 ATHEROSCLEROTIC HEART DISEASE OF [place] CORONARY ARTERY WITHOUT ANGINA PECTORIS 04/09/[address] active 5 BIPOLAR DISORDER, UNSPECIFIED 04/09/[address] active 6 COGNITIVE COMMUNICATION DEFICIT 04/09/[address] active 7 ESSENTIAL (PRIMARY) HYPERTENSION 04/09/[address] active 8 FIBROMYALGIA 04/09/[address] active 9 GASTRO-ESOPHAGEAL REFLUX DISEASE WITHOUT ESOPHAGITIS 04/09/[address] active 10 GENERALIZED ANXIETY DISORDER 04/09/[address] active 11 HYPERLIPIDEMIA, UNSPECIFIED 04/09/[address] active 12 HYPOTHYROIDISM, UNSPECIFIED 04/09/[address] active 13 MUSCLE WASTING AND ATROPHY, NOT ELSEWHERE CLASSIFIED, MULTIPLE SITES 04/09/[address] active 14 MUSCLE WASTING AND ATROPHY, NOT ELSEWHERE CLASSIFIED, UNSPECIFIED SITE 04/09/[address] active 15 OBSESSIVE-COMPULSIV E BEHAVIOR 04/09/[address] active 16 OTHER RECURRENT DEPRESSIVE DISORDERS 04/09/[address] active 17 PERSONAL HISTORY OF TRANSIENT ISCHEMIC ATTACK (TIA), AND CEREBRAL INFARCTION WITHOUT RESIDUAL DEFICITS 04/09/[address] active 18 UNSTEADINESS ON FEET 04/09/[address] active Reason for Referral No Reasons for Referral Entered Social History Social History Observation Description Start Date End Date Code Code System Current Smoking Status Tobacco smoking consumption unknown 477046695 SNOMED CT Sex Assigned At Female 1955 [address]-1 [facility] Gender Identity Sexual Orientation Vital Signs Code Code System Vitals Name Values and Units Timing Information 03148-3 [facility] Pain Level Value=0.0 04/19/2018 8462-4 [facility] Blood Pressure-Diastolic Value=68 Un its=mmHg 04/18/2018 8480-6 [facility] Blood Pressure-Systolic Iqjro=140 Un its=mmHg 04/18/2018 8310-5 [facility] Body Temperature Value=97.2 Units= F 04/18/2018 9279-1 [facility] Respiratory Rate Value=18.0 Units=/m in 04/18/2018 8867-4 [facility] Heart rate Value=64.0 Units=/min 05/2018 2339-0 [facility] Blood Sugar Zzkcz=682.0 Units=mg/dL 04/18/2018 99177-7 [facility] O2 % BldC Oximetry Value=97.0 Units= % 04/17/2018 11572-8 [facility] Weight Skdws=365.0 Units=Lbs 03/2018 8302-2 [facility] Height Value=67.0 Units=Inches 04/10/2018
--- OUTSIDE RECORDS SUMMARY | 2025-04-09 14:12 | XMS_ITS | Encounter Summary ---
Author Organization [facility] Address [address] [place] [address] Care Team Providers Care Director Of District Office Name Role Phone Jayesh Krueger MD Primary Care Provider [phone] Encounter Details Date Type Department Care Team (Latest Contact Info) Description 11/11/2002 Outpatient Historical [facility] Thomas Dailey MD [address] 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
--- OUTSIDE RECORDS SUMMARY | 2025-04-09 14:12 | XMS_ITS | Encounter Summary ---
Author Organization [facility] Address [address] [place] [address] Care Team Providers Care Studio Hand Name Role Phone Jayesh Krueger MD Primary Care Provider [phone] Encounter Details Date Type Department Care Team (Late st Contact Info) Description 01/12/2010 Ancillary Orders [facility] Orthopedics- [address] [place] [address] Jean-Paul Kirkland MD NO ADDRESS ON FILE Pain Social History Tobacco Use Types Packs/Day Years Used Date Smoking Tobacco: Never Alcohol Use Standard Drinks/Week Comments No 0 (1 standard drink = 0.6 oz pur e alcohol) Comments No Sex and Gender Information Value Date Recorded Sex Assigned at Not on file Legal Sex Female 5:34 AM STEAM CONDITIONER FILLING Gender Identity Not on file Sexual Orientation Not on file documented as of this encounter Plan of Treatment Not on file documented as of this encounter Results * XR KNEE 1 OR 2 VW LEFT (01/12/2010 11:48 AM CDT) Anatomical Region Laterality Modality Lower Extremity Computed Radiogr aphy Narrative 08/03/2011 9:33 AM STEAM CONDITIONER FILLING AP and lateral radiographs of both knees [...] pain documented in this encounter Care Teams Studio Hand Relationship Specialty Start Date End Date Jayesh Krueger MD [address] [place] [address] PCP - General Internal Medicine 12/19/16 documented as of this encounter
--- OUTSIDE RECORDS SUMMARY | 2025-04-09 14:12 | XMS_ITS | Patient Health Record ---
Author Organization [facility] Address [address] [place] [address] Care Team Providers Care Tile And Marble Setter Name Role Phone Carter Yusuf Primary Care Provider Sam Tomlinson [phone] Allergies Allergen (clinical drug ingredient) Drug/Non Drug [...] Problem Status W/U Status Risk Notes Problem Dyspareunia (79806075) Dyspareunia (625.0) 2004 Problem resolved confirmed [id number] Problem Atherosclerotic heart disease of [place] coronary artery without angina pectoris (943990056258202) Atherosclerotic heart disease of [place] coronary artery without angina pectoris (I25.10) Active confirmed [id number] med Description:Cor onary arteriosclerosi s Problem Gastro-esophageal reflux disease without esophagitis (184582869) Gastro-esophage al reflux disease without esophagitis (K21.9) Active confirmed [id number] med Description:Gas troesophageal reflux disease Problem Chest pain (88991896) Chest pain, unspecified (R07.9) Active confirmed [id number] med Description:Cherise st pain Problem Dysphagia (55162589) Dysphagia, unspecified (R13.10) Active confirmed Problem Dysphagia (88886292) Dysphagia, unspecified type (R13.10) Active confirmed Problem Steatorrhea (49184817) Steatorrhea (K90.9) Active confirmed Problem History of adenomatous polyp of colon (526346469) History of adenomatous polyp of colon (Z86.010) Active confirmed Problem Hypercholesterole kedar (75502754) Hypercholestero lemia (272.0) 2004 Problem resolved confirmed [id number] Problem Late effects of cerebrovascular disease (879553308) Old CVA (438.9) 2004 Problem resolved confirmed [id number] Problem Acquired hypothyroidism (924596487) Acquired hypothyroidism (244.8) 2004 Problem resolved confirmed [id number] Problem Diabetes mellitus type 2 (disorder) (85414575) Type 2 diabetes (250.00) 2004 Problem resolved confirmed [id number] Problem History of adenomatous polyp of colon (820808219) Hx of adenomatous polyp of colon (Z86.010) Active confirmed Problem Atrophic gastritis (65408846) Mild chronic gastritis (K29.50) Active confirmed Problem Gastroesophageal reflux disease (929536163) Gastroesophagea l reflux disease, unspecified whether esophagitis present (K21.9) Active confirmed Plan Of Treatment Pending Test Test Name Order Date Culture Stool 62283, 84991, 33285, 07270 , 00476 08/15/2021 Giardia/Cryptosporidium Screen 98181, 87 329 08/15/2021 Fecal Leukocyte 69598 08/15/2021 CDiff PCR Rfx C diff Toxin NAP/EPI 65967 , 29718 08/15/2021 Calprotectin Fecal 43053 08/15/2021 Pancreatic Elastase Fecal--99560 022 Diagnostic Colonoscopy-57293 08/15/2021 EGD, Upper GI Diagnostic-10907 2 Insurance Providers Payer Name Payer Address Payer Phone Subscriber Number Group Number Insured Name Patient Relationship to Insured Coverage Start Date Coverage End Date [place] [address] [place] [phone] [id number] Kaylee Ch Self - patient is the insured [facility] [address] [address] [place] [address] [id number] Kaylee Ch Self - patient is the [...]
--- OUTSIDE RECORDS SUMMARY | 2025-04-09 14:12 | XMS_ITS | Encounter Summary ---
Author Organization [facility] Address [address] [place] [address] Care Team Providers Care Data Abstractor Name Role Phone Jayesh Krueger MD Primary Care Provider [phone] Encounter Details Date Type Department Care Team (Latest Contact Info) Description 07/03/2006 Outpatient Historical [facility] Endocrinology-[facility] [place] [address] [place] [address] Chin Patel MD NO ADDRESS ON FILE DM w/o Complication Type II, Uncontrolled (Primary Dx); Other and Unspecified Hyperlipidemia; Unspecified Essential Hypertension Social History Tobacco Use Types Packs/Day Years Used Date Smoking Tobacco: Never Assessed Comments Unknown Sex and Gender Information Value Date Recorded Sex Assigned at Not on file Legal Sex Female 5:34 AM STICK ROLLER Gender Identity Not on file Sexual Orientation Not on file documented as of this encounter Plan of Treatment Not on file documented as of this encounter Visit Diagnoses Diagnosis Type II or unspecified type diabetes mellitus without mention of complication, uncontrolled- Primary Other and unspecified hyperlipidemia Unspecified essential hypertension documented in this encounter Care Teams Data Abstractor Relationship Specialty Start Date End Date Jayesh Krueger MD [address] [place] [address] PCP - General Internal Medicine 12/19/16 documented as of this encounter
--- OUTSIDE RECORDS SUMMARY | 2025-04-09 14:12 | XMS_ITS | Encounter Summary ---
Author Organization [facility] Address [address] Attn: [place] [address] Care Team Providers Care Drier Transfer Car Operator Name Role Phone Jayesh Krueger MD Primary Care Provider [phone] Encounter Details Date Type Department Care Team (Late st Contact Info) Description 03/05/2000 Outpatient Historical Thomas Dailey MD [address] [place] [address] Social History Tobacco Use Types Packs/Day Years Used Date Smoking Tobacco: Never Assessed Comments Unknown Sex and Gender Information Value Date Recorded Sex Assigned at Not on file Legal Sex Female 5:34 AM PHYSICAL THERAPY ASSISTANT Gender Identity Not on file Sexual Orientation Not on file documented as of this encounter Plan of Treatment Not on file documented as of this encounter Visit Diagnoses Not on filedocumented in this encounter Care Teams Drier Transfer Car Operator Relationship Specialty Start Date End Date Jayesh Krueger MD [address] [place] [address] PCP - General Internal Medicine 12/19/16 documented as of this encounter
--- OUTSIDE RECORDS SUMMARY | 2025-04-09 14:12 | XMS_ITS | Encounter Summary ---
Author Organization [facility] Address [address] [place] [address] Care Team Providers Care Steam Drier Operator Name Role Phone Jayesh Krueger MD Primary Care Provider [phone] Encounter Details Date Type Department Care Team (Latest Contact Info) Description 11/27/2002 Outpatient Historical [facility] [place] [facility] Imaging and Laboratory Services [address] [place] [address] Thomas Dailey MD [address] [place] [address] DISC DIS NEC/NOS-LUMBAR (Primary Dx) Social History Tobacco Use Types Packs/Day Years Used Date Smoking Tobacco: Never Assessed Comments Unknown Sex and Gender Information Value Date Recorded Sex Assigned at Not on file Legal Sex Female 5:34 AM BOLT HEADER Gender Identity Not on file Sexual Orientation Not on file documented as of this encounter Plan of Treatment Not on file documented as of this encounter Visit Diagnoses Diagnosis Other and unspecified disc disorder of lumbar region- Primary documented in this encounter Care Teams Steam Drier Operator Relationship Specialty Start Date End Date Jayesh Krueger MD [address] [place] [address] PCP - General Internal Medicine 12/19/16 documented as of this encounter
--- OUTSIDE RECORDS SUMMARY | 2025-04-09 14:12 | XMS_ITS | Encounter Summary ---
Author Organization [facility] Address [address] [place] [address] Care Team Providers Care Electromechanical Technician Name Role Phone Jayesh Krueger MD Primary Care Provider [phone] Encounter Details Date Type Department Care Team (Latest Contact Info) Description 12/25/2002 Outpatient Historical [facility] [address] [place] [address] Thomas Dailey MD [address] [place] [address] PREOP CARDIOVASC EXAM (Primary Dx) Social History Tobacco Use Types Packs/Day Years Used Date Smoking Tobacco: Never Assessed Comments Unknown Sex and Gender Information Value Date Recorded Sex Assigned at Not on file Legal Sex Female 5:34 AM COAL TRAM DRIVER Gender Identity Not on file Sexual Orientation Not on file documented as of this encounter Plan of Treatment Not on file documented as of this encounter Visit Diagnoses Diagnosis Pre-operative cardiovascular examination- Primary documented in this encounter Care Teams Electromechanical Technician Relationship Specialty Start Date End Date Jayesh Kruegre MD [address] [place] [address] PCP - General Internal Medicine 12/19/16 documented as of this encounter
--- OUTSIDE RECORDS SUMMARY | 2025-04-09 14:12 | XMS_ITS | Encounter Summary ---
Author Organization [facility] Address [address] [place] [address] Care Team Providers Care Oncology Pharmacist Name Role Phone Jayesh Krueger MD Primary Care Provider Encounter Details Date Type Department Care Team (Late st Contact Info) Description 09/06/2003 Emergency [facility] Emergency Department [address] [place] [address] Leonel Basurto DO NO ADDRESS ON FILE TRANSIENT CEREBRAL ISCHEMIA NOS (Primary Dx) Social History Tobacco Use Types Packs/Day Years Used Date Smoking Tobacco: Never Assessed Comments Unknown Sex and Gender Information Value Date Recorded Sex Assigned at Not on file Legal Sex Female 5:34 AM ASSOCIATE EDITOR Gender Identity Not on file Sexual Orientation Not on file documented as of this encounter Plan of Treatment Not on file documented as of this encounter Visit Diagnoses Diagnosis Unspecified transient cerebral ischemia- Primary documented in this encounter Care Teams Oncology Pharmacist Relationship Specialty Start Date End Date Jayesh Krueger MD [address] [place] [address] PCP - General Internal Medicine 12/19/16 documented as of this encounter
--- OUTSIDE RECORDS SUMMARY | 2025-04-09 14:12 | XMS_ITS | Encounter Summary ---
Author Organization [facility] Address [address] [place] [address] Care Team Providers Care Sustainability Coach Name Role Phone Jayesh Krueger MD Primary Care Provider [phone] Encounter Details Date Type Department Care Team (Latest Contact Info) Description 03/20/2006 Outpatient Historical [facility] Endocrinology-[facility] [place] [address] [address] Brice Oconnell, [place] [address] [address] DM w/o Complication Type II, Uncontrolled (Primary Dx); Other and Unspecified Hyperlipidemia; Unspecified Essential Hypertension Social History Tobacco Use Types Packs/Day Years Used Date Smoking Tobacco: Never Assessed Comments Unknown Sex and Gender Information Value Date Recorded Sex Assigned at Not on file Legal Sex Female 5:34 AM CLINICAL APPEALS REVIEWER Gender Identity Not on file Sexual Orientation Not on file documented as of this encounter Plan of Treatment Not on file documented as of this encounter Visit Diagnoses Diagnosis Type II or unspecified type diabetes mellitus without mention of complication, uncontrolled- Primary Other and unspecified hyperlipidemia Unspecified essential hypertension documented in this encounter Care Teams Sustainability Coach Relationship Specialty Start Date End Date Jayesh Krueger MD [address] [place] [address] PCP - General Internal Medicine 12/19/16 documented as of this encounter
--- OUTSIDE RECORDS SUMMARY | 2025-04-09 14:12 | XMS_ITS | Encounter Summary ---
Author Organization [facility] Address [address] [facility] Attn: [place] [address] Care Team Providers Care Jewelry Jobber Name Role Phone Jayesh Krueger MD Primary Care Provider [phone] Encounter Details Date Type Department Care Team (Late st Contact Info) Description 04/13/2000 Inpatient Historical Thomas Dailey MD [address] [place] [address] Social History Tobacco Use Types Packs/Day Years Used Date Smoking Tobacco: Never Assessed Comments Unknown Sex and Gender Information Value Date Recorded Sex Assigned at Not on file Legal Sex Female 5:34 AM MASTIC WORKER Gender Identity Not on file Sexual Orientation Not on file documented as of this encounter Plan of Treatment Not on file documented as of this encounter Visit Diagnoses Not on filedocumented in this encounter Care Teams Jewelry Jobber Relationship Specialty Start Date End Date Jayesh Krueger MD [address] [place] [address] PCP - General Internal Medicine 12/19/16 documented as of this encounter
--- OUTSIDE RECORDS SUMMARY | 2025-04-09 14:12 | XMS_ITS | Encounter Summary ---
Author Organization [facility] Address [address] [place] [address] Care Team Providers Care Ticket Machine Operator Name Role Phone Jayesh Krueger MD Primary Care Provider [phone] Encounter Details Date Type Department Care Team (Latest Contact Info) Description 12/10/2003 Outpatient Historical [facility] [address] [place] [address] Thomas Dailey MD [address] [place] [address] LUMBOSACRAL NEURITIS NOS (Primary Dx) Social History Tobacco Use Types Packs/Day Years Used Date Smoking Tobacco: Never Assessed Comments Unknown Sex and Gender Information Value Date Recorded Sex Assigned at Not on file Legal Sex Female 5:34 AM DIESEL POWERPLANT MECHANIC Gender Identity Not on file Sexual Orientation Not on file documented as of this encounter Plan of Treatment Not on file documented as of this encounter Visit Diagnoses Diagnosis Thoracic or lumbosacral neuritis or radiculitis, unspecified- Primary documented in this encounter Care Teams Ticket Machine Operator Relationship Specialty Start Date End Date Jayesh Krueger MD [address] [place] [address] PCP - General Internal Medicine 12/19/16 documented as of this encounter
--- OUTSIDE RECORDS SUMMARY | 2025-04-09 14:12 | XMS_ITS | Encounter Summary ---
Author Organization [facility] Address [address] [place] [address] Care Team Providers Care Business Services Tech Name Role Phone Jayesh Krueger MD Primary Care Provider [phone] Encounter Details Date Type Department Care Team (Latest Contact Info) Description 06/11/2000 Outpatient Historical [facility] Nasir Uriostegui MD NO ADDRESS ON FILE Headache(784.0) (Primary Dx) Social History Tobacco Use Types Packs/Day Years Used Date Smoking Tobacco: Never Assessed Comments Unknown Sex and Gender Information Value Date Recorded Sex Assigned at Not on file Legal Sex Female 5:34 AM POLICE INVESTIGATOR Gender Identity Not on file Sexual Orientation Not on file documented as of this encounter Plan of Treatment Not on file documented as of this encounter Visit Diagnoses Diagnosis Headache(784.0)- Primary Headache documented in this encounter Care Teams Business Services Tech Relationship Specialty Start Date End Date Jayesh Krueger MD [address] [place] [address] PCP - General Internal Medicine 12/19/16 documented as of this encounter
--- OUTSIDE RECORDS SUMMARY | 2025-04-09 14:12 | XMS_ITS | Encounter Summary ---
Author Organization [facility] Address [address] [place] [address] Care Team Providers Care Front Office Secretary Name Role Phone Jayesh Krueger MD Primary Care Provider [phone] Encounter Details Date Type Department Care Team (Late st Contact Info) Description 02/06/2001 [facility] [address] [place] [address] Sotero Ortiz MD NO ADDRESS ON FILE Myalgia and myositis, unspecified (Primary Dx); Headache(784.0) Social History Tobacco Use Types Packs/Day Years Used Date Smoking Tobacco: Never Assessed Comments Unknown Sex and Gender Information Value Date Recorded Sex Assigned at Not on file Legal Sex Female 5:34 AM DRIVER SERVICE TECHNICIAN Gender Identity Not on file Sexual Orientation Not on file documented as of this encounter Plan of Treatment Not on file documented as of this encounter Visit Diagnoses Diagnosis Myalgia and myositis, unspecified- Primary Mylagia and myositis, unspecified Headache(784.0) Headache documented in this encounter Care Teams Front Office Secretary Relationship Specialty Start Date End Date Jayesh Krueger MD [address] [place] [address] PCP - General Internal Medicine 12/19/16 documented as of this encounter
--- OUTSIDE RECORDS SUMMARY | 2025-04-09 14:12 | XMS_ITS | Encounter Summary ---
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
--- NOTE | 2025-04-09 14:16 | ECG_ITS ---
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 Measurements Intervals [place] Rate: 60 P: 69 UT: 192 QRS: 73 QRSD: 101 T: 65 QT: 437 QTc: 439 Interpretive Statements SINUS RHYTHM Compared to ECG 02/18/2025 15:45:48 No significant changes Electronically Signed On 04-09-2025 17:11:43 CDT by Barrie Urbina M.D. [email or web address]
--- NOTE | 2025-04-09 14:16 | XRR_ITS ---
PROCEDURE INFORMATION: Exam: XR Chest Exam date and time: 04/09/2025 2:50 PM Age: 69 years old Clinical indication: Screening exam; Other screening; Additional info: Psych clearance TECHNIQUE: Imaging protocol: Radiologic exam of the chest. Views: 1 view. COMPARISON[place] [id number] 01/31/2025 10:45 AM FINDINGS: Lungs: Low lung volumes. Otherwise, unremarkable. Pleural spaces: Unremarkable. No pleural effusion. No pneumothorax. Heart/Mediastinum: Unremarkable. No cardiomegaly. Bones/joints: Right shoulder arthroplasty. Surgical material attached to the lower cervical spine. Otherwise, unremarkable. XR/XR chest 1V portable [id number] IMPRESSION: 1. Low lung volumes. 2. No other acute findings.
--- NOTE | 2025-04-09 14:29 | CTR_ITS ---
PROCEDURE INFORMATION: Exam: CT Head Without Contrast Exam date and time: 04/09/2025 4:03 PM Age: 69 years old Clinical indication: Other: Hallucinations, shaking TECHNIQUE: Imaging protocol: Computed tomography of the head without contrast. Radiation optimization: All CT scans at this facility use at least one of these dose optimization techniques: automated exposure control; mA and/or kV adjustment per patient size (includes targeted exams where dose is matched to clinical indication); or iterative reconstruction. COMPARISON: CT head wo con* [id number] 02/10/2025 10:14 AM RADIATION DOSE METRICS: Total DLP (mGy-cm): 1131.78 FINDINGS: Brain: Moderate, diffuse atrophy of the brain.There is ill-defined, fairly symmetric low-density within the cerebral deep white matter bilaterally which is likely the sequela of chronic ischemic change due to small vessel disease. No CT evidence of mass effect, intracranial hemorrhage, or acute infarct. Cerebral ventricles: Prominent ventricles due to the atrophy. Otherwise, unremarkable. Paranasal sinuses: Visualized sinuses are unremarkable. No fluid levels. Mastoid air cells: Visualized mastoid air cells are well aerated. Auditory system: Clear middle ear cavities bilaterally. Bones: Unremarkable. No acute fracture. Soft tissues: Otherwise, unremarkable. CT/CT head wo con* [id number] IMPRESSION: 1. No acute findings. 2. Additional details as above.
--- NOTE | 2025-04-09 14:35 | W.ED.PSYCHS ---
Documented by User: SAM Mojica 04/10/25 01:02 HPI - Psych General: Chief Complaint: Psychiatric Symptoms Stated Complaint: hallucinations Time Seen by Provider: 04/09/25 14:17 Source: patient, family and old records reviewed Mode of arrival: wheelchair Limitations: altered mental status History of Present Illness: Patient is a 69-year-old female with past medical history of bipolar disorder, anxiety and depression, posttraumatic stress disorder, CVA and TIA, presenting to the emergency department for hallucinations. Initial history was given by patient's brother, stating that she has been exhibiting signs of visual hallucinations and has been acknowledging family members that are either not present or are . They note that the patient recently had amputation of left great toe, this is all been okay aside from after the patient being discharged from rehab she has seemingly gone downhill. Brother notes that he is unsure of any medication changes that happen, but now she is unable to walk due to tremors and shaking in her legs. He states that she is now unable to care for herself as well, recently they have been dealing with finding her a house/place to live and that today he went to pick her up but found her on the floor. When he picked her up, states that she had started acknowledging someone sitting in a chair across the room, stating that she thought she was talking to her brother who lives in [place] but no one was there. He states he thinks that she needs seen somewhere and believes she might have a urinary tract infection. I speak to the patient next, she does confirm that she has been having hallucinations but only because this is what her brother has told her. She does state that she sees family members or talks to family members who she also acknowledges to me are . However she is unable to correctly state the year or month but is alert to self. States that she feels unsafe to walk due to the shakiness in her legs, is in a wheelchair at this time. She does not report any other symptoms however, she does state that she had a couple of medications stopped from rehab but is unable to tell me which ones. Reviewing med list appears that she takes fluoxetine, duloxetine, and olanzapine. Otherwise she does not tell me she has any suicidal or homicidal ideations. complaint: altered mental status and other (hallucinations) Duration: getting worse History of same: No Context: other (Recent hospitalization/rehab stay, reported medication changes) Associated psychiatric symptoms: visual hallucinations Related Data Home Medications ?Medication ?Instructions ?Recorded ?Confirmed ascorbic acid 7.5 mg-vit E 7.5 1 tab PO DAILY@1000 11/12/20 04/10/25 unit-biotin 1,250 mcg chewable tablet (Hair,Skin,Nails with Biotin) multivitamin 1 tab PO DAILY@1000 11/12/20 04/10/25 cyanocobalamin (vitamin B-12) 1,000 mcg PO DAILY 01/03/23 04/10/25 1,000 mcg tablet (Vitamin B-12) gabapentin 100 mg capsule 100 mg PO BID 07/18/24 04/10/25 potassium chloride 20 mEq 20 meq PO .DAILY@10A07/18/24 04/10/25 tablet,extended release lamotrigine 200 mg tablet 200 mg PO BID 12/30/24 04/10/25 duloxetine 60 mg capsule,delayed 120 mg PO QAM 01/26/25 04/10/25 release fluoxetine 20 mg capsule 20 mg PO QAM 01/26/25 04/10/25 levothyroxine 200 mcg tablet 200 mcg PO .DAILY@10AM 01/26/25 04/10/25 omega 2-jwo-ytj-fish oil 1,200 mg 1 cap PO DAILY 01/30/25 04/10/25 (144 mg-216 mg) capsule (Fish Oil) diazepam 10 mg tablet 10 mg PO BID PRN Anxiety 04/10/25 04/10/25 Previous Rx's ?Medication ?Instructions ?Recorded insulin syringe-needle U-100 1 mL #100 ea 09/06/22 28 gauge x 1/2 (BD Insulin Syringe) Diabetic shoes #1 ea 04/11/23 blood-glucose meter #1 ea 06/12/23 blood sugar diagnostic (Blood #200 ea 06/15/23 Glucose Test strips) blood-glucose meter (Accu-Chek #1 ea 06/27/23 Guide Glucose Meter) blood sugar diagnostic (Accu-Chek #100 ea 07/26/23 Guide test strips) lancets (Accu-Chek Softclix #200 ea 09/14/23 Lancets) Diabetic Shoes with Inserts #1 ea 12/11/24 insulin syringe-needle U-100 1 mL #100 ea 01/02/25 31 gauge x 5/16 (TRUEplus Insulin) cam boot to right #1 ea 01/05/25 semaglutide 0.25 mg or 0.5 mg (2 0.5 mg (0.736 mL) SUBCUT .weekly 01/27/25 mg/3 mL) subcutaneous pen injector #3 mL (Ozempic) amiodarone 200 mg tablet (Pacerone) See Rx Instructions .Route 02/06/25 .COMPLEX #60 tabs amlodipine 10 mg tablet 10 mg PO DAILY #30 tabs 02/06/25 aspirin 81 mg tablet,delayed 81 mg PO DAILY #30 tabs 02/06/25 release glimepiride 4 mg tablet 2 mg (1/2 x 4 mg) PO BID #30 tabs 02/06/25 olanzapine 5 mg tablet 2.5 mg (1/2 x 5 mg) PO BID #30 tabs 02/06/25 quetiapine 25 mg tablet 25 mg PO BEDTIME #30 tabs 02/06/25 sennosides 8.6 mg-docusate sodium 1 tab PO BID PRN Constipation #30 02/06/25 50 mg tablet (Stool tabs Softener-Laxative) Allergies Allergy/AdvReac Type Severity Reaction Status Date / Time azithromycin (From Zithromax) Allergy rash Verified 03/04/25 14:22 cetirizine (From Zyrtec) Allergy rash Verified 03/04/25 14:22 lisinopril (From Zestril) Allergy ALGY-Swell Verified 03/04/25 14:22 Lip/Tongue/Throat metformin AdvReac Intermediate diarrhea Verified 03/04/25 14:22 topiramate (From Topamax) AdvReac Intermediate diarrhea Verified 03/04/25 14:22 Review of Systems General: Reports: ROS unobtainable due to mental status PFSH ED PFSH: Medical History 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 Left shoulder pain Hypothyroid Hyperlipidemia Hypertension Diabetes mellitus Suspected COVID-19 virus infection Hypothyroidism Chronic diarrhea Tension headache, chronic CVA (cerebral vascular accident) TIA (transient ischemic attack) History of aphasia Hx of kidney disease Hx of type 2 diabetes mellitus History of anemia History of GI bleed History of hypothyroidism Hx of primary hypertension History of bipolar disorder History of anxiety History of depression History of posttraumatic stress disorder (PTSD) Surgical History Hx of appendectomy History of back surgery Hx of cholecystectomy Hx of hysterectomy Hx of neck surgery Social History Smoking and tobacco/nicotine status: never used tobacco/nicotine Alcohol intake: current Alcohol intake frequency: holidays/special occasions only Substance/Drug Use: never Physical Exam Const: COMMON NORMALS: no acute distress and alert EXAM LIMITATIONS: altered mental status ORIENTATION/CONSCIOUSNESS: Yes awake and Yes oriented to person OTHER: Disoriented to place and time, nontoxic-appearing HENMT: COMMON NORMALS: normocephalic and atraumatic HEAD & SCALP: normocephalic and atraumatic Eye: COMMON NORMALS: Equal, round and reactive pupils present and EOMs intact bilaterally PUPIL: Yes Equal, round and reactive pupils present OTHER: No visual deficit Neck/C-Spine: COMMON NORMALS: full ROM Resp: COMMON NORMALS: normal respiratory effort, No retractions, No use of accessory muscles and clear to auscultation bilaterally AUSCULTATION: clear to auscultation bilaterally Cardio: COMMON NORMALS: regular rate, regular rhythm, No gallops present (Cardio), No clicks present (Cardio), No murmurs present (Cardio) and No rub (Cardio) RATE: regular rate RHYTHM: regular rhythm GI: COMMON NORMALS: Soft to palpation and non-tender PALPATION: Yes Soft to palpation Extremity: COMMON NORMALS: normal to inspection and full ROM Neuro: COMMON NORMALS: moves all extremities, no focal motor deficits and no sensory deficits noted SENSORIUM/ORIENTATION: Yes alert and Yes oriented to person GAIT: Yes Unable to assess gait MOTOR EXAM: 5/5 motor strength present throughout, Pronator motor function not present, no asterixis, Motor fasciculations not present and Normal motor muscle tone present throughout OTHER: Intention tremor noted to all 4 extremities, mild Psych: APPEARANCE: Yes grossly normal ATTITUDE: Yes calm ACTIVITY/MOTOR BEHAVIOR: Yes appropriate eye contact SPEECH: Yes incoherent MOOD & AFFECT: Yes euthymic mood THOUGHT PROCESS: incoherent and disorganized THOUGHT CONTENT: No Suicidality present, No Homicidality present and Yes Hallucination(s) present MEMORY/COGNITION: Yes memory grossly impaired INSIGHT: Good insight present (Psych) Skin: COMMON NORMALS: no rashes or lesions noted GENERAL SKIN EXAM: no rashes or lesions noted Course Vital Signs: Vital signs: Vital Signs Temperature 98.6 F 04/12/25 05:56 Pulse Rate 79 04/13/25 04:38 Respiratory Rate 16 04/12/25 21:12 Blood Pressure 161/72 04/13/25 04:38 Pulse Oximetry 93 04/13/25 04:38 Oxygen Delivery Me thod Room Air 04/13/25 04:38 Oxygen Flow Rate 2 04/11/25 04:52 MDM - Psych Medical Decision Making This patient presented for evaluation, her brother gave initial history stating that she has been showing signs of deterioration in terms of she is now unable to walk due to being tremulous but has also been showing signs of acute psychosis that she has been acknowledging family members and talking out of her head. She does have psychiatric history, of note was recently discharged from [facility]hab after great toe amputation, though there is no clinical suspicion that this is causing her symptoms. In addition her urinalysis is negative, there is a leukocytosis but this is chronic when reviewing her prior labs. She also is diabetic her blood sugar is 350, head CT negative and chest x-ray negative. I do suspect that this is in need of evaluation from geriatric psychiatry, so plan is to transfer her for further care as we do not have geriatric psych at this facility. Currently awaiting acceptance. [facility] Lab Data 04/10/25 13:13 04/10/25 13:13 Radiology Impressions Chest X-Ray 04/09/25 14:16 IMPRESSION: 1. Low lung volumes. 2. No other acute findings. Head CT 04/09/25 14:29 IMPRESSION: 1. No acute findings. 2. Additional details as above. Head MRI 04/10/25 12:54 IMPRESSION: Some images degraded by patient motion due to confusion. Fast imaging performed. 1. No evidence of restricted diffusion to suggest acute ischemia. 2. Mild to moderate small vessel changes slightly progressed since 2019. Mild to moderate parenchymal volume loss. 3. No hemosiderin on susceptibility-weighted images. 4. No other acute findings. Laboratory Results WBC 10.60 10^3/uL (3.29-11.43) 04/10/25 13:13 RBC 4.15 10^6/uL (3.85-5.65) 04/10/25 13:13 Hgb 12.10 g/dL (11.27-16.99) 04/10/25 13:13 Hct 37.4 % (36-47) 04/10/25 13:13 MCV 90.1 fl (85-98) 04/10/25 13:13 MCH 29.2 pg (27-33) 04/10/25 13:13 MCHC 32.4 g/dL (30-55) 04/10/25 13:13 RDW 13.4 % (12.1-15.1) 04/10/25 13:13 Plt Count 318 10^3/cmm (157-399) 04/10/25 13:13 MPV 9.6 fL (7.4-10.4) 04/10/25 13:13 Neut % (Auto) 72.1 % 04/10/25 13:13 Lymph % (Auto) 16.3 % 04/10/25 13:13 Camp % (Auto) 8.4 % 04/10/25 13:13 Eos % (Auto) 1.8 % 04/10/25 13:13 Baso % (Auto) 0.7 % 04/10/25 13:13 Neut # (Auto) 7.65 10^3/uL (1.8-7.7) 04/10/25 13:13 Lymph # (Auto) 1.7 10^3/uL (0.8-4.8) 04/10/25 13:13 Camp # (Auto) 0.9 10^3/uL (0.2-0.9) 04/10/25 13:13 Eos # (Auto) 0.2 10^3/uL (0.0-0.8) 04/10/25 13:13 Baso # (Auto) 0.1 10^3/uL (0.0-0.1) 04/10/25 13:13 Nucleated RBC % (auto) 0 % 04/10/25 13:13 Nucleated RBCs # 0.0 /100WBC 04/10/25 13:13 Sodium 131 mmol/L (136-145) L 04/10/25 13:13 Potassium 3.9 mmol/L (3.5-5.1) 04/10/25 13:13 Chloride 93 mmol/L (98-107) L 04/10/25 13:13 Carbon Dioxide 24 mmol/L (22-29) 04/10/25 13:13 Anion Gap 17.9 (5-19) 04/10/25 13:13 BUN 11 mg/dL (8-23) 04/10/25 13:13 Creatinine 0.8 mg/dL (0.5-0.9) 04/10/25 13:13 GFR Calculation 70.9 mL/min (90-130) L 04/10/25 13:13 Glucose 275 mg/dL (65-115) H 04/10/25 13:13 POC Glucose 311 mg/dL (70-110) H 04/12/25 21:08 Calculated Osmolality 281 mOsm/kg (285-295) L 04/10/25 13:13 Calcium 8.8 mg/dL (8.5-10.5) 04/10/25 13:13 Total Bilirubin 0.5 mg/dL (0.15-1.2) 04/09/25 14:33 AST 47 U/L (0-32) H 04/09/25 14:33 ALT 136 U/L (0-33) H 04/09/25 14:33 Alkaline Phosphatase 211 U/L (35-105) H 04/09/25 14:33 Total Protein 7.3 g/dL (6.6-8.7) 04/09/25 14:33 Albumin 4.0 g/dL (3.5-5.2) 04/09/25 14:33 Globulin 3.3 g/dL (1.3-4.6) 04/09/25 14:33 TSH 3.12 uIU/mL (0.27-4.20) 04/09/25 14:33 Urine Color Yellow (Yellow) 04/09/25 16:34 Urine Appearance Clear (CLEAR) 04/09/25 16:34 Urine pH 6.5 (5-7) 04/09/25 16:34 Ur Specific [place] 1.016 (1.005-1.030) 04/09/25 16:34 Urine Protein 1+ (Negative) A 04/09/25 16:34 Urine Glucose (UA) 3+ (Normal) H 04/09/25 16:34 Urine Ketones Trace (Negative) 04/09/25 16:34 Urine Blood Negative (Negative) 04/09/25 16:34 Urine Nitrate Negative (Negative) 04/09/25 16:34 Urine Bilirubin Negative (Negative) 04/09/25 16:34 Urine Urobilinogen 0.2 mg/dL (Negative) 04/09/25 16:34 Ur Leukocyte Esterase Negative (Negative) 04/09/25 16:34 Urine RBC None /hpf (0-2) 04/09/25 16:34 Urine WBC None /hpf (0-5) 04/09/25 16:34 Ur Squamous Epith Cells None /hpf (0-5) 04/09/25 16:34 Amorphous Sediment Not Reportable 04/09/25 16:34 Urine Bacteria None /hpf (NONE) 04/09/25 16:34 Urine Mucus None /hpf 04/09/25 16:34 Salicylates < 0.3 mg/dL (3-10) L 04/09/25 14:33 Urine Opiates Screen Positive ng/mL (Negative) H 04/09/25 16:34 Acetaminophen < 5.0 ug/mL (10-30) L 04/09/25 14:33 Ur Barbiturates Screen Negative ng/mL (Negative) 04/09/25 16:34 Ur Phencyclidine Scrn Negative ng/mL (Negative) 04/09/25 16:34 Ur Amphetamines Screen Negative ng/mL (Negative) 04/09/25 16:34 U Benzodiazepines Scrn Positive ng/mL (Negative) H 04/09/25 16:34 Urine Cocaine Screen Negative ng/mL (Negative) 04/09/25 16:34 U Marijuana (THC) Screen Negative ng/mL (Negative) 04/09/25 16:34 Ethyl Alcohol < 10 mg/dL (0-10) 04/09/25 14:33 Influenza A (PCR) Negative (Negative) 04/09/25 14:30 Influenza Type B (PCR) Negative (Negative) 04/09/25 14:30 RSV (PCR) Negative (Negative) 04/09/25 14:30 SARS-CoV-2 (PCR) Negative (Negative) 04/09/25 14:30 All radiology interpretation(s) finalized by discharge Discharge Plan Discharge Patient Disposition: Xfer Psychiatric Hosp Clinical Impression: Acute psychosis Condition: Stable Referrals: Carter Yusuf MD [Primary Care Provider, Family Practice] Print Language: Norwegian Coding Level of Care Code ED Animal Rescuer for Chg Fwd Documented by User: Antelmo Ornelas MD 04/12/25 06:42 HPI - Psych General: Chief Complaint: Psychiatric Symptoms Stated Complaint: hallucinations Time Seen by Provider: 04/09/25 14:17 Related Data Home Medications ?Medication ?Instructions ?Recorded ?Confirmed ascorbic acid 7.5 mg-vit E 7.5 1 tab PO DAILY@1000 11/12/20 04/10/25 unit-biotin 1,250 mcg chewable tablet (Hair,Skin,Nails with Biotin) multivitamin 1 tab PO DAILY@1000 11/12/20 04/10/25 cyanocobalamin (vitamin B-12) 1,000 mcg PO DAILY 01/03/23 04/10/25 1,000 mcg tablet (Vitamin B-12) gabapentin 100 mg capsule 100 mg PO BID 07/18/24 04/10/25 potassium chloride 20 mEq 20 meq PO .DAILY@10AM 07/18/24 04/10/25 tablet,extended release lamotrigine 200 mg tablet 200 mg PO BID 12/30/24 04/10/25 duloxetine 60 mg capsule,delayed 120 mg PO QAM 01/26/25 04/10/25 release fluoxetine 20 mg capsule 20 mg PO QAM 01/26/25 04/10/25 levothyroxine 200 mcg tablet 200 mcg PO .DAILY@10AM 01/26/25 04/10/25 omega 3-oiz-mne-fish oil 1,200 mg 1 cap PO DAILY 01/30/25 04/10/25 (144 mg-216 mg) capsule (Fish Oil) diazepam 10 mg tablet 10 mg PO BID PRN Anxiety 04/10/25 04/10/25 Previous Rx's ?Medication ?Instructions ?Recorded insulin syringe-needle U-100 1 mL #100 ea 09/06/22 28 gauge x 1/2 (BD Insulin Syringe) Diabetic shoes #1 ea 04/11/23 blood-glucose meter #1 ea 06/12/23 blood sugar diagnostic (Blood #200 ea 06/15/23 Glucose Test strips) blood-glucose meter (Accu-Chek #1 ea 06/27/23 Guide Glucose Meter) blood sugar diagnostic (Accu-Chek #100 ea 07/26/23 Guide test strips) lancets (Accu-Chek Softclix #200 ea 09/14/23 Lancets) Diabetic Shoes with Inserts #1 ea 12/11/24 insulin syringe-needle U-100 1 mL #100 ea 01/02/25 31 gauge x 5/16 (TRUEplus Insulin) cam boot to right #1 ea 01/05/25 semaglutide 0.25 mg or 0.5 mg (2 0.5 mg (0.736 mL) SUBCUT .weekly 01/27/25 mg/3 mL) subcutaneous pen injector #3 mL (Ozempic) amiodarone 200 mg tablet (Pacerone) See Rx Instructions .Route 02/06/25 .COMPLEX #60 tabs amlodipine 10 mg tablet 10 mg PO DAILY #30 tabs 02/06/25 aspirin 81 mg tablet,delayed 81 mg PO DAILY #30 tabs 02/06/25 release glimepiride 4 mg tablet 2 mg (1/2 x 4 mg) PO BID #30 tabs 02/06/25 olanzapine 5 mg tablet 2.5 mg (1/2 x 5 mg) PO BID #30 tabs 02/06/25 quetiapine 25 mg tablet 25 mg PO BEDTIME #30 tabs 02/06/25 sennosides 8.6 mg-docusate sodium 1 tab PO BID PRN Constipation #30 02/06/25 50 mg tablet (Stool tabs Softener-Laxative) Allergies Allergy/AdvReac Type Severity Reaction Status Date / Time azithromycin (From Zithromax) Allergy rash Verified 03/04/25 14:22 cetirizine (From Zyrtec) Allergy rash Verified 03/04/25 14:22 lisinopril (From Zestril) Allergy ALGY-Swell Verified 03/04/25 14:22 Lip/Tongue/Throat metformin AdvReac Intermediate diarrhea Verified 03/04/25 14:22 topiramate (From Topamax) AdvReac Intermediate diarrhea Verified 03/04/25 14:22 PFSH ED PFSH: Medical History 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 Left shoulder pain Hypothyroid Hyperlipidemia Hypertension Diabetes mellitus Suspected COVID-19 virus infection Hypothyroidism Chronic diarrhea Tension headache, chronic CVA (cerebral vascular accident) TIA (transient ischemic attack) History of aphasia Hx of kidney disease Hx of type 2 diabetes mellitus History of anemia History of GI bleed History of hypothyroidism Hx of primary hypertension History of bipolar disorder History of anxiety History of depression History of posttraumatic stress disorder (PTSD) Surgical History Hx of appendectomy History of back surgery Hx of cholecystectomy Hx of hysterectomy Hx of neck surgery Social History Smoking and tobacco/nicotine status: never used tobacco/nicotine Alcohol intake: current Alcohol intake frequency: holidays/special occasions only Substance/Drug Use: never Course Reevaluation(s): Reevaluation #1: Patient is currently awake alert with no acute issues at this time. Patient is been able to perform her ADLs here is been able to get up and go to the bathroom herself and shower herself. Time: 06:41 Vital Signs: Vital signs: Vital Signs Temperature 98.6 F 04/12/25 05:56 Pulse Rate 79 04/13/25 04:38 Respiratory Rate 16 04/12/25 21:12 Blood Pressure 161/72 04/13/25 04:38 Pulse Oximetry 93 04/13/25 04:38 Oxygen Delivery Me thod Room Air 04/13/25 04:38 Oxygen Flow Rate 2 04/11/25 04:52 MDM - Psych Medical Decision Making This patient presented for evaluation, her brother gave initial history stating that she has been showing signs of deterioration in terms of she is now unable to walk due to being tremulous but has also been showing signs of acute psychosis that she has been acknowledging family members and talking out of her head. She does have psychiatric history, of note was recently discharged from [facility]hab after great toe amputation, though there is no clinical suspicion that this is causing her symptoms. In addition her urinalysis is negative, there is a leukocytosis but this is chronic when reviewing her prior labs. She also is diabetic her blood sugar is 350, head CT negative and chest x-ray negative. I do suspect that this is in need of evaluation from geriatric psychiatry, so plan is to transfer her for further care as we do not have geriatric psych at this facility. Currently awaiting acceptance. [facility] Evaluated patient in the ER she is psychotic having hallucinations currently. She has no signs of stroke she did have some slight confusion son was asked that she is acting differently so did do an MRI to rule out a stroke MRI was negative. I did have our psychiatrist Dr. Gamez come evaluate patient and he agrees the patient does likely need to be in inpatient psych at this time we will continue to look for placement Lab Data 04/10/25 13:13 04/10/25 13:13 Radiology Impressions Chest X-Ray 04/09/25 14:16 IMPRESSION: 1. Low lung volumes. 2. No other acute findings. Head CT 04/09/25 14:29 IMPRESSION: 1. No acute findings. 2. Additional details as above. Head MRI 04/10/25 12:54 IMPRESSION: Some images degraded by patient motion due to confusion. Fast imaging performed. 1. No evidence of restricted diffusion to suggest acute ischemia. 2. Mild to moderate small vessel changes slightly progressed since 2019. Mild to moderate parenchymal volume loss. 3. No hemosiderin on susceptibility-weighted images. 4. No other acute findings. Laboratory Results WBC 10.60 10^3/uL (3.29-11.43) 04/10/25 13:13 RBC 4.15 10^6/uL (3.85-5.65) 04/10/25 13:13 Hgb 12.10 g/dL (11.27-16.99) 04/10/25 13:13 Hct 37.4 % (36-47) 04/10/25 13:13 MCV 90.1 fl (85-98) 04/10/25 13:13 MCH 29.2 pg (27-33) 04/10/25 13:13 MCHC 32.4 g/dL (30-55) 04/10/25 13:13 RDW 13.4 % (12.1-15.1) 04/10/25 13:13 Plt Count 318 10^3/cmm (157-399) 04/10/25 13:13 MPV 9.6 fL (7.4-10.4) 04/10/25 13:13 Neut % (Auto) 72.1 % 04/10/25 13:13 Lymph % (Auto) 16.3 % 04/10/25 13:13 Camp % (Auto) 8.4 % 04/10/25 13:13 Eos % (Auto) 1.8 % 04/10/25 13:13 Baso % (Auto) 0.7 % 04/10/25 13:13 Neut # (Auto) 7.65 10^3/uL (1.8-7.7) 04/10/25 13:13 Lymph # (Auto) 1.7 10^3/uL (0.8-4.8) 04/10/25 13:13 Camp # (Auto) 0.9 10^3/uL (0.2-0.9) 04/10/25 13:13 Eos # (Auto) 0.2 10^3/uL (0.0-0.8) 04/10/25 13:13 Baso # (Auto) 0.1 10^3/uL (0.0-0.1) 04/10/25 13:13 Nucleated RBC % (auto) 0 % 04/10/25 13:13 Nucleated RBCs # 0.0 /100WBC 04/10/25 13:13 Sodium 131 mmol/L (136-145) L 04/10/25 13:13 Potassium 3.9 mmol/L (3.5-5.1) 04/10/25 13:13 Chloride 93 mmol/L (98-107) L 04/10/25 13:13 Carbon Dioxide 24 mmol/L (22-29) 04/10/25 13:13 Anion Gap 17.9 (5-19) 04/10/25 13:13 BUN 11 mg/dL (8-23) 04/10/25 13:13 Creatinine 0.8 mg/dL (0.5-0.9) 04/10/25 13:13 GFR Calculation 70.9 mL/min (90-130) L 04/10/25 13:13 Glucose 275 mg/dL (65-115) H 04/10/25 13:13 POC Glucose 311 mg/dL (70-110) H 04/12/25 21:08 Calculated Osmolality 281 mOsm/kg (285-295) L 04/10/25 13:13 Calcium 8.8 mg/dL (8.5-10.5) 04/10/25 13:13 Total Bilirubin 0.5 mg/dL (0.15-1.2) 04/09/25 14:33 AST 47 U/L (0-32) H 04/09/25 14:33 ALT 136 U/L (0-33) H 04/09/25 14:33 Alkaline Phosphatase 211 U/L (35-105) H 04/09/25 14:33 Total Protein 7.3 g/dL (6.6-8.7) 04/09/25 14:33 Albumin 4.0 g/dL (3.5-5.2) 04/09/25 14:33 Globulin 3.3 g/dL (1.3-4.6) 04/09/25 14:33 TSH 3.12 uIU/mL (0.27-4.20) 04/09/25 14:33 Urine Color Yellow (Yellow) 04/09/25 16:34 Urine Appearance Clear (CLEAR) 04/09/25 16:34 Urine pH 6.5 (5-7) 04/09/25 16:34 Ur Specific [place] 1.016 (1.005-1.030) 04/09/25 16:34 Urine Protein 1+ (Negative) A 04/09/25 16:34 Urine Glucose (UA) 3+ (Normal) H 04/09/25 16:34 Urine Ketones Trace (Negative) 04/09/25 16:34 Urine Blood Negative (Negative) 04/09/25 16:34 Urine Nitrate Negative (Negative) 04/09/25 16:34 Urine Bilirubin Negative (Negative) 04/09/25 16:34 Urine Urobilinogen 0.2 mg/dL (Negative) 04/09/25 16:34 Ur Leukocyte Esterase Negative (Negative) 04/09/25 16:34 Urine RBC None /hpf (0-2) 04/09/25 16:34 Urine WBC None /hpf (0-5) 04/09/25 16:34 Ur Squamous Epith Cells None /hpf (0-5) 04/09/25 16:34 Amorphous Sediment Not Reportable 04/09/25 16:34 Urine Bacteria None /hpf (NONE) 04/09/25 16:34 Urine Mucus None /hpf 04/09/25 16:34 Salicylates < 0.3 mg/dL (3-10) L 04/09/25 14:33 Urine Opiates Screen Positive ng/mL (Negative) H 04/09/25 16:34 Acetaminophen < 5.0 ug/mL (10-30) L 04/09/25 14:33 Ur Barbiturates Screen Negative ng/mL (Negative) 04/09/25 16:34 Ur Phencyclidine Scrn Negative ng/mL (Negative) 04/09/25 16:34 Ur Amphetamines Screen Negative ng/mL (Negative) 04/09/25 16:34 U Benzodiazepines Scrn Positive ng/mL (Negative) H 04/09/25 16:34 Urine Cocaine Screen Negative ng/mL (Negative) 04/09/25 16:34 U Marijuana (THC) Screen Negative ng/mL (Negative) 04/09/25 16:34 Ethyl Alcohol < 10 mg/dL (0-10) 04/09/25 14:33 Influenza A (PCR) Negative (Negative) 04/09/25 14:30 Influenza Type B (PCR) Negative (Negative) 04/09/25 14:30 RSV (PCR) Negative (Negative) 04/09/25 14:30 SARS-CoV-2 (PCR) Negative (Negative) 04/09/25 14:30 Discharge Plan Discharge Patient Disposition: Xfer Psychiatric Hosp Clinical Impression: Acute psychosis Condition: Stable Referrals: Carter Yusuf MD [Primary Care Provider, [facility] [employer]] Print Language: Norwegian Coding Level of Care Code ED Animal Rescuer for Chg Fwd Documented by User: Melvin Cabrera DO 04/13/25 05:24 HPI - Psych General: Chief Complaint: Psychiatric Symptoms Stated Complaint: hallucinations Time Seen by Provider: 04/09/25 14:17 Related Data Home Medications ?Medication ?Instructions ?Recorded ?Confirmed ascorbic acid 7.5 mg-vit E 7.5 1 tab PO DAILY@1000 11/12/20 04/10/25 unit-biotin 1,250 mcg chewable tablet (Hair,Skin,Nails with Biotin) multivitamin 1 tab PO DAILY@1000 11/12/20 04/10/25 cyanocobalamin (vitamin B-12) 1,000 mcg PO DAILY 01/03/23 04/10/25 1,000 mcg tablet (Vitamin B-12) gabapentin 100 mg capsule 100 mg PO BID 07/18/24 04/10/25 potassium chloride 20 mEq 20 meq PO .DAILY@10A07/18/24 04/10/25 tablet,extended release lamotrigine 200 mg tablet 200 mg PO BID 12/30/24 04/10/25 duloxetine 60 mg capsule,delayed 120 mg PO QAM 01/26/25 04/10/25 release fluoxetine 20 mg capsule 20 mg PO QAM 01/26/25 04/10/25 levothyroxine 200 mcg tablet 200 mcg PO .DAILY@10AM 01/26/25 04/10/25 omega 0-hkp-bkg-fish oil 1,200 mg 1 cap PO DAILY 01/30/25 04/10/25 (144 mg-216 mg) capsule (Fish Oil) diazepam 10 mg tablet 10 mg PO BID PRN Anxiety 04/10/25 04/10/25 Previous Rx's ?Medication ?Instructions ?Recorded insulin syringe-needle U-100 1 mL #100 ea 09/06/22 28 gauge x 1/2 (BD Insulin Syringe) Diabetic shoes #1 ea 04/11/23 blood-glucose meter #1 ea 06/12/23 blood sugar diagnostic (Blood #200 ea 06/15/23 Glucose Test strips) blood-glucose meter (Accu-Chek #1 ea 06/27/23 Guide Glucose Meter) blood sugar diagnostic (Accu-Chek #100 ea 07/26/23 Guide test strips) lancets (Accu-Chek Softclix #200 ea 09/14/23 Lancets) Diabetic Shoes with Inserts #1 ea 12/11/24 insulin syringe-needle U-100 1 mL #100 ea 01/02/25 31 gauge x 5/16 (TRUEplus Insulin) cam boot to right #1 ea 01/05/25 semaglutide 0.25 mg or 0.5 mg (2 0.5 mg (0.736 mL) SUBCUT .weekly 01/27/25 mg/3 mL) subcutaneous pen injector #3 mL (Ozempic) amiodarone 200 mg tablet (Pacerone) See Rx Instructions .Route 02/06/25 .COMPLEX #60 tabs amlodipine 10 mg tablet 10 mg PO DAILY #30 tabs 02/06/25 aspirin 81 mg tablet,delayed 81 mg PO DAILY #30 tabs 02/06/25 release glimepiride 4 mg tablet 2 mg (1/2 x 4 mg) PO BID #30 tabs 02/06/25 olanzapine 5 mg tablet 2.5 mg (1/2 x 5 mg) PO BID #30 tabs 02/06/25 quetiapine 25 mg tablet 25 mg PO BEDTIME #30 tabs 02/06/25 sennosides 8.6 mg-docusate sodium 1 tab PO BID PRN Constipation #30 02/06/25 50 mg tablet (Stool tabs Softener-Laxative) Allergies Allergy/AdvReac Type Severity Reaction Status Date / Time azithromycin (From Zithromax) Allergy rash Verified 03/04/25 14:22 cetirizine (From Zyrtec) Allergy rash Verified 03/04/25 14:22 lisinopril (From Zestril) Allergy ALGY-Swell Verified 03/04/25 14:22 Lip/Tongue/Throat metformin AdvReac Intermediate diarrhea Verified 03/04/25 14:22 topiramate (From Topamax) AdvReac Intermediate diarrhea Verified 03/04/25 14:22 [facility] ED PFSH: Medical History 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 Left shoulder pain Hypothyroid Hyperlipidemia Hypertension Diabetes mellitus Suspected COVID-19 virus infection Hypothyroidism Chronic diarrhea Tension headache, chronic CVA (cerebral vascular accident) TIA (transient ischemic attack) History of aphasia Hx of kidney disease Hx of type 2 diabetes mellitus History of anemia History of GI bleed History of hypothyroidism Hx of primary hypertension History of bipolar disorder History of anxiety History of depression History of posttraumatic stress disorder (PTSD) Surgical History Hx of appendectomy History of back surgery Hx of cholecystectomy Hx of hysterectomy Hx of neck surgery Social History Smoking and tobacco/nicotine status: never used tobacco/nicotine Alcohol intake: current Alcohol intake frequency: holidays/special occasions only Substance/Drug Use: never Course Vital Signs: Vital signs: Vital Signs Temperature 98.6 F 04/12/25 05:56 Pulse Rate 79 04/13/25 04:38 Respiratory Rate 16 04/12/25 21:12 Blood Pressure 161/72 04/13/25 04:38 Pulse Oximetry 93 04/13/25 04:38 Oxygen Delivery Me thod Room Air 04/13/25 04:38 Oxygen Flow Rate 2 04/11/25 04:52 MDM - Psych Medical Decision Making This patient presented for evaluation, her brother gave initial history stating that she has been showing signs of deterioration in terms of she is now unable to walk due to being tremulous but has also been showing signs of acute psychosis that she has been acknowledging family members and talking out of her head. She does have psychiatric history, of note was recently discharged from [facility] after great toe amputation, though there is no clinical suspicion that this is causing her symptoms. In addition her urinalysis is negative, there is a leukocytosis but this is chronic when reviewing her prior labs. She also is diabetic her blood sugar is 350, head CT negative and chest x-ray negative. I do suspect that this is in need of evaluation from geriatric psychiatry, so plan is to transfer her for further care as we do not have geriatric psych at this facility. Currently awaiting acceptance. DBD Evaluated patient in the ER she is psychotic having hallucinations currently. She has no signs of stroke she did have some slight confusion son was asked that she is acting differently so did do an MRI to rule out a stroke MRI was negative. I did have our psychiatrist Dr. Gamez come evaluate patient and he agrees the patient does likely need to be in inpatient psych at this time we will continue to look for placement. Chart reviewed and patient discussed with midlevel. Agree with assessment and plan. Lab Data 04/10/25 13:13 04/10/25 13:13 Radiology Impressions Chest X-Ray 04/09/25 14:16 IMPRESSION: 1. Low lung volumes. 2. No other acute findings. Head CT 04/09/25 14:29 IMPRESSION: 1. No acute findings. 2. Additional details as above. Head MRI 04/10/25 12:54 IMPRESSION: Some images degraded by patient motion due to confusion. Fast imaging performed. 1. No evidence of restricted diffusion to suggest acute ischemia. 2. Mild to moderate small vessel changes slightly progressed since 2019. Mild to moderate parenchymal volume loss. 3. No hemosiderin on susceptibility-weighted images. 4. No other acute findings. Laboratory Results WBC 10.60 10^3/uL (3.29-11.43) 04/10/25 13:13 RBC 4.15 10^6/uL (3.85-5.65) 04/10/25 13:13 Hgb 12.10 g/dL (11.27-16.99) 04/10/25 13:13 Hct 37.4 % (36-47) 04/10/25 13:13 MCV 90.1 fl (85-98) 04/10/25 13:13 MCH 29.2 pg (27-33) 04/10/25 13:13 MCHC 32.4 g/dL (30-55) 04/10/25 13:13 RDW 13.4 % (12.1-15.1) 04/10/25 13:13 Plt Count 318 10^3/cmm (157-399) 04/10/25 13:13 MPV 9.6 fL (7.4-10.4) 04/10/25 13:13 Neut % (Auto) 72.1 % 04/10/25 13:13 Lymph % (Auto) 16.3 % 04/10/25 13:13 Camp % (Auto) 8.4 % 04/10/25 13:13 Eos % (Auto) 1.8 % 04/10/25 13:13 Baso % (Auto) 0.7 % 04/10/25 13:13 Neut # (Auto) 7.65 10^3/uL (1.8-7.7) 04/10/25 13:13 Lymph # (Auto) 1.7 10^3/uL (0.8-4.8) 04/10/25 13:13 Camp # (Auto) 0.9 10^3/uL (0.2-0.9) 04/10/25 13:13 Eos # (Auto) 0.2 10^3/uL (0.0-0.8) 04/10/25 13:13 Baso # (Auto) 0.1 10^3/uL (0.0-0.1) 04/10/25 13:13 Nucleated RBC % (auto) 0 % 04/10/25 13:13 Nucleated RBCs # 0.0 /100WBC 04/10/25 13:13 Sodium 131 mmol/L (136-145) L 04/10/25 13:13 Potassium 3.9 mmol/L (3.5-5.1) 04/10/25 13:13 Chloride 93 mmol/L (98-107) L 04/10/25 13:13 Carbon Dioxide 24 mmol/L (22-29) 04/10/25 13:13 Anion Gap 17.9 (5-19) 04/10/25 13:13 BUN 11 mg/dL (8-23) 04/10/25 13:13 Creatinine 0.8 mg/dL (0.5-0.9) 04/10/25 13:13 GFR Calculation 70.9 mL/min (90-130) L 04/10/25 13:13 Glucose 275 mg/dL (65-115) H 04/10/25 13:13 POC Glucose 311 mg/dL (70-110) H 04/12/25 21:08 Calculated Osmolality 281 mOsm/kg (285-295) L 04/10/25 13:13 Calcium 8.8 mg/dL (8.5-10.5) 04/10/25 13:13 Total Bilirubin 0.5 mg/dL (0.15-1.2) 04/09/25 14:33 AST 47 U/L (0-32) H 04/09/25 14:33 ALT 136 U/L (0-33) H 04/09/25 14:33 Alkaline Phosphatase 211 U/L (35-105) H 04/09/25 14:33 Total Protein 7.3 g/dL (6.6-8.7) 04/09/25 14:33 Albumin 4.0 g/dL (3.5-5.2) 04/09/25 14:33 Globulin 3.3 g/dL (1.3-4.6) 04/09/25 14:33 TSH 3.12 uIU/mL (0.27-4.20) 04/09/25 14:33 Urine Color Yellow (Yellow) 04/09/25 16:34 Urine Appearance Clear (CLEAR) 04/09/25 16:34 Urine pH 6.5 (5-7) 04/09/25 16:34 Ur Specific [place] 1.016 (1.005-1.030) 04/09/25 16:34 Urine Protein 1+ (Negative) A 04/09/25 16:34 Urine Glucose (UA) 3+ (Normal) H 04/09/25 16:34 Urine Ketones Trace (Negative) 04/09/25 16:34 Urine Blood Negative (Negative) 04/09/25 16:34 Urine Nitrate Negative (Negative) 04/09/25 16:34 Urine Bilirubin Negative (Negative) 04/09/25 16:34 Urine Urobilinogen 0.2 mg/dL (Negative) 04/09/25 16:34 Ur Leukocyte Esterase Negative (Negative) 04/09/25 16:34 Urine RBC None /hpf (0-2) 04/09/25 16:34 Urine WBC None /hpf (0-5) 04/09/25 16:34 Ur Squamous Epith Cells None /hpf (0-5) 04/09/25 16:34 Amorphous Sediment Not Reportable 04/09/25 16:34 Urine Bacteria None /hpf (NONE) 04/09/25 16:34 Urine Mucus None /hpf 04/09/25 16:34 Salicylates < 0.3 mg/dL (3-10) L 04/09/25 14:33 Urine Opiates Screen Positive ng/mL (Negative) H 04/09/25 16:34 Acetaminophen < 5.0 ug/mL (10-30) L 04/09/25 14:33 Ur Barbiturates Screen Negative ng/mL (Negative) 04/09/25 16:34 Ur Phencyclidine Scrn Negative ng/mL (Negative) 04/09/25 16:34 Ur Amphetamines Screen Negative ng/mL (Negative) 04/09/25 16:34 U Benzodiazepines Scrn Positive ng/mL (Negative) H 04/09/25 16:34 Urine Cocaine Screen Negative ng/mL (Negative) 04/09/25 16:34 U Marijuana (THC) Screen Negative ng/mL (Negative) 04/09/25 16:34 Ethyl Alcohol < 10 mg/dL (0-10) 04/09/25 14:33 Influenza A (PCR) Negative (Negative) 04/09/25 14:30 Influenza Type B (PCR) Negative (Negative) 04/09/25 14:30 RSV (PCR) Negative (Negative) 04/09/25 14:30 SARS-CoV-2 (PCR) Negative (Negative) 04/09/25 14:30 Discharge Plan Discharge Patient Disposition: Xfer Psychiatric Hosp Clinical Impression: Acute psychosis Condition: Stable Referrals: Carter Yusuf MD [Primary Care Provider, Family Practice] Print Language: Norwegian Coding Level of Care Code ED Animal Rescuer for Jaret Deal
[2025-04-09 14:57] LABS: Hematocrit 40.0 % (36-47); Hemoglobin 13.00 g/dL (11.27-16.99); Mean Corpuscular HGB Conc 32.5 g/dL (30-55); Mean Corpuscular Hemoglobin 29.6 pg (27-33); Mean Corpuscular Volume 91.1 fl (85-98); Nucleated Red Blood Cells % 0 %; Platelet Count 388 10^3/cmm (157-399); Red Blood Count 4.39 10^6/uL (3.85-5.65); White Blood Count 14.35 10^3/uL (3.29-11.43)
[2025-04-09 15:24] LABS: Alanine Aminotransferase 136 U/L (0-33); Albumin Level 4.0 g/dL (3.5-5.2); Alkaline Phosphatase 211 U/L (35-105); Anion Gap 17.4 (5-19); Aspartate Amino Transferase 47 U/L (0-32); Blood Urea Nitrogen 17 mg/dL (8-23); Calcium 9.1 mg/dL (8.5-10.5); Carbon Dioxide 27 mmol/L (22-29); Chloride 88 mmol/L (98-107); Creatinine Clr Calc Pharmacy 60.9915; Globulin 3.3 g/dL (1.3-4.6); Glucose 349 mg/dL (65-115); Osmolality Calculated 283 mOsm/kg (285-295); Potassium 3.4 mmol/L (3.5-5.1); Sodium 129 mmol/L (136-145); Thyroid Stimulating Hormone 3.12 uIU/mL (0.27-4.20); Total Protein 7.3 g/dL (6.6-8.7)
[2025-04-09 15:26] LABS: Acetaminophen < 5.0 ug/mL (10-30); Alcohol Level < 10 mg/dL (0-10); Salicylate < 0.3 mg/dL (3-10)
[2025-04-09 16:16] LABS: Respiratory Syncytial Virus Ce NEGATIVE (Negative); SARS-CoV-2 PCR NEGATIVE (Negative)
[2025-04-09 16:57] LABS: Glucose Urine UA 3+ (Normal); Nitrate Urine Negative (Negative); Specific Gravity, Urine 1.016 (1.005-1.030)
[2025-04-09 17:02] LABS: PCP Screen Urine Negative (Negative)
[2025-04-09 17:18] LABS: Add Urine Microscopic? YES
[2025-04-10] VITALS (10 sets, daily range): BP systolic 124–193; BP diastolic 52–104; PULSE 61–77; RESP 16–21; O2SAT 95–98
--- NOTE | 2025-04-10 06:58 | PC.NURSE ---
THIS NURSE ASSUMED CARE @ 2149.
--- NOTE | 2025-04-10 12:54 | MR_ITS ---
WS: [id number] MRI HEAD WITHOUT CONTRAST TECHNIQUE: Sagittal T1, T2 axial, T2 axial FLAIR, axial and coronal T1 images, axial susceptibility weighted imaging, axial diffusion weighted images, and coronal T2 images were obtained. CLINICAL INFORMATION: confusion COMPARISON: MRI 2018 FINDINGS: No evidence of restricted diffusion to suggest acute ischemia. Mild to moderate small vessel changes with mild to moderate parenchymal volume loss slightly progressed since 2018. Normal vascular flow voids at the skull base. No extra- axial fluid collections. Paranasal sinuses and mastoid air cells are well aerated. Tiny chronic lacunar infarct in the LEFT martinez radiata. No hemosiderin. Temporal lobes and hippocampal formations are normal. MR/MR head wo con* [id number] IMPRESSION: Some images degraded by patient motion due to confusion. Fast imagi ng performed. 1. No evidence of restricted diffusion to suggest acute ischemia. 2. Mild to moderate small vessel changes slightly progressed since 2019. Mild to moderate parenchymal volume loss. 3. No hemosiderin on susceptibility-weighted images. 4. No other acute findings.
[2025-04-10 13:17] LABS: Hematocrit 37.4 % (36-47); Hemoglobin 12.10 g/dL (11.27-16.99); Mean Corpuscular HGB Conc 32.4 g/dL (30-55); Mean Corpuscular Hemoglobin 29.2 pg (27-33); Mean Corpuscular Volume 90.1 fl (85-98); Nucleated Red Blood Cells % 0 %; Platelet Count 318 10^3/cmm (157-399); Red Blood Count 4.15 10^6/uL (3.85-5.65); White Blood Count 10.60 10^3/uL (3.29-11.43)
[2025-04-10 13:34] LABS: Anion Gap 17.9 (5-19); Blood Urea Nitrogen 11 mg/dL (8-23); Calcium 8.8 mg/dL (8.5-10.5); Carbon Dioxide 24 mmol/L (22-29); Chloride 93 mmol/L (98-107); Creatinine Clr Calc Pharmacy 68.6155; Glucose 275 mg/dL (65-115); Osmolality Calculated 281 mOsm/kg (285-295); Potassium 3.9 mmol/L (3.5-5.1); Sodium 131 mmol/L (136-145)
--- NOTE | 2025-04-10 15:12 | PC.SOCIAL ---
Case management CM is called about potential placement. However, ER has been working on vy psych and have been unsuccessful. CM explains that SNF's will not accept until vy psych is not needed. CM reviewed patients previous admissions and patient was Dc'd to [facility]. ABDON called and spoke to Minda @ [facility] and she reports that patient DC'd from facility on 03/27/25. She reports that patient is in her copay days, but does have a secondary insurance to cover the copay if meets criteria for admission. However she reports that they would not be able to accept today w/ patient c/o hallucinations.
--- NOTE | 2025-04-10 17:30 | P.NPUCON_ITS ---
Providers/Reason for Consult 2 Consulting Physican/Specialty*: Sukumar Gamez MD. Psychiatry. Reason for Consult*: Evaluate for need for inpatient services. Primary Care Provider: Carter Yusuf MD Psych Consult HPI History of Present Illness Kaylee Ch is a 69 year old female who presented to the emergency department with the following report: HPI - Psych General: Chief Complaint: Psychiatric Symptoms Stated Complaint: hallucinations Time Seen by Provider: 04/09/25 14:17 Source: patient, family and old records reviewed Mode of arrival: wheelchair Limitations: altered mental status History of Present Illness: Patient is a 69-year-old female with past medical history of bipolar disorder, anxiety and depression, posttraumatic stress disorder, CVA and TIA, presenting to the emergency department for hallucinations. Initial history was given by patient's brother, stating that she has been exhibiting signs of visual hallucinations and has been acknowledging family members that are either not present or are . They note that the patient recently had amputation of left great toe, this is all been okay aside from after the patient being discharged from rehab she has seemingly gone downhill. Brother notes that he is unsure of any medication changes that happen, but now she is unable to walk due to tremors and shaking in her legs. He states that she is now unable to care for herself as well, recently they have been dealing with finding her a house/place to live and that today he went to pick her up but found her on the floor. When he picked her up, states that she had started acknowledging someone sitting in a chair across the room, stating that she thought she was talking to her brother who lives in [place] but no one was there. He states he thinks that she needs seen somewhere and believes she might have a urinary tract infection. I speak to the patient next, she does confirm that she has been having hallucinations but only because this is what her brother has told her. She does state that she sees family members or talks to family members who she also acknowledges to me are . However she is unable to correctly state the year or month but is alert to self. States that she feels unsafe to walk due to the shakiness in her legs, is in a wheelchair at this time. She does not report any other symptoms however, she does state that she had a couple of medications stopped from rehab but is unable to tell me which ones. Reviewing med list appears that she takes fluoxetine, duloxetine, and olanzapine. Otherwise she does not tell me she has any suicidal or homicidal ideations. MD complaint: altered mental status and other (hallucinations) Duration: getting worse History of same: No Context: other (Recent hospitalization/rehab stay, reported medication changes) Associated psychiatric symptoms: visual hallucinations Attempts were made to establish a geriatric psych facility to receive her but unfortunately she was not excepted anywhere and a psychiatric consult was requested because she had been there for so long at this point and they wanted to make sure that there were no issues or factors that would change the disposition or speak to the cause. She is unknown to [facility] psychiatry through inpatient or outpatient services. She presented with an unremarkable UDS or BAL reporting: Chief complaint Evaluation for recent onset of visual hallucinations, word-finding difficulties, and functional decline. History of the present complaint Reported experiencing visual hallucinations recently, including seeing someone hiding behind a curtain and engaging in conversation with them, as well as seeing a man who likes to tease her. Described the man as probably 24 and stated he used to be her transfer at the custodial and is now a PHYSICAL THERAPY TECHNICIAN. Stated that during these hallucinations, she spoke to the person and received replies, though others did not hear them. Denies auditory hallucinations at present but acknowledged a history of hearing things in the past. Described episodes of paranoia, feeling that people are out to get her or following her, but denies current paranoia. Described recent onset of word-finding difficulties and paraphasias, stating that she has been losing a lot of words and using incorrect but similar words, with this symptom worsening over the last three days. Reported episodes where she begins speaking normally and then suddenly forgets what she was talking about, requiring prompts to recall the topic. Reported a history of depression beginning at age 18, with episodes characterized by feelings of helplessness, hopelessness, and worthlessness. Described periods of low motivation and passive wishes, stating that she has felt if I don't wake up tomorrow, that's fine. Denies current suicidal ideation and denies current thoughts of self-harm or harm to others. Endorsed a history of self-injurious behavior, including cutting and burning, not with suicidal intent but to inflict pain. Reported significant anxiety, describing herself as a worrier and experiencing anxiety about various things, including social situations such as going to [employer]. Endorsed social anxiety and difficulty with public settings. Described experiencing nightmares and flashbacks, though not related to specific traumatic events. Described ritualistic behaviors, including needing to wash dishes in a specific order, timing activities, and checking the clock multiple times before going to sleep, sometimes up to 30 times. Reported a traumatic experience in childhood involving episodes of screaming and breath-holding until her face turned blue, requiring her mother to intervene by placing her head in a bucket of ice water to restore breathing. Described another traumatic event involving her stepfather, where she experienced distress and required removal to fresh air to calm down. Reported a history of psychiatric hospitalizations, including a recent stay at [place] where psychiatric medications were changed. Expressed frustration regarding medication changes made by providers unfamiliar with her case. Described attending outpatient services and seeing therapists at various times throughout her life. Reported a three-week period at [facility] in [place], where she underwent evaluation by multiple psychiatrists and participated in a group decision-making process regarding her care. Reported a history of substance use, including tobacco and marijuana, and attending drug and alcohol rehabilitation. Denied history of DUI or drug/alcohol-related charges. Reported family history of mental health issues on her father's side, specifically his sister, and denied mental health history on her mother's side. Uncertain regarding family history of addiction or suicide. Described a supportive relationship with her dog, stating that her psychiatrist encouraged her to bring her dog to appointments for comfort. Reported multiple marriages, with the first ending after ten years due to growing apart, the second ending due to her 's alcohol use and encouragement from his daughter to seek divorce, and the third lasting 26 years until her 's on September. Stated she was officially for 20 years and in her longest relationship for 26 years. Denied having biological children. Reported a history of endometriosis, with five surgeries by age 27, resulting in infertility. Described significant pain related to endometriosis. Reported recent surgery two weeks ago for toe amputation due to infection, with prior unsuccessful attempts to correct the issue with pins. Reported aortic disease and atrial fibrillation, with heart not beating correctly at times. Stated she takes three pills to help with sleep and one antibiotic for bipolar disorder. Described her mood as dependent on her relationship with Otoniel, expressing strong emotional attachment and stating she could not make it without him. Reported recent deterioration in mobility, requiring assistance to stand and use the toilet, and noted inability to walk across the room as she could previously. Reported hearing difficulties worsening over the past three days, with difficulty comprehending conversations. Mental health history Had onset of major depressive symptoms at age 18 characterized by feelings of helplessness, hopelessness, and worthlessness with periods of hypersomnia and hyperphagia. History of passive wishes, occasional suicidal ideation without self?injurious behaviors. Experienced visual hallucinations during recent weeks and prior episodes. Multiple psychiatric hospitalizations, including extended stays at [place] and a three?week admission at [facility] in [place], during which psychotropic regimens were adjusted. Engaged in outpatient psychotherapy intermittently throughout adult life. Has never been to or completed a drug and alcohol rehabilitation program; no DUI or legal charges reported. Currently on multiple sleep aids and mood stabilizer therapy for bipolar features. No current thoughts of self?harm or harm to others. Social history five years ago on September 24, 2019, following 26 years of marriage; two prior marriages ended in divorce. No biological children. Three brothers and two sisters; youngest daughter among full siblings. Lives in a one-bedroom house that is not wheelchair accessible. 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 Owns a dog (half pit bull/half Labrador) that provides emotional support. History of participation in drug and alcohol rehabilitation. No current information on tobacco, alcohol or other substance use. Meds Home Medications and Allergies Home Medications ?Medication ?Instructions ?Recorded ?Confirmed ?Last Taken ?Type ascorbic acid 7.5 mg-vit E 7.5 1 tab PO DAILY@1000 01/2604/10/25 04/08/25 History unit-biotin 1,250 mcg chewable tablet (Hair,Skin,Nails with Biotin) multivitamin 1 tab PO DAILY@1000 11/12/20 04/10/25 04/08/25 History insulin syringe-needle U-100 1 mL #100 ea 09/06/2209/30 Unknown Rx 28 gauge x 1/2 (BD Insulin Syringe) cyanocobalamin (vitamin B-12) 1,000 mcg PO DAILY 01/0304/10/25 04/08/25 History 1,000 mcg tablet (Vitamin B-12) Diabetic shoes #1 ea 04/11/23 04/10/25 Unkn own Rx blood-glucose meter #1 ea 06/12/23 04/10/25 Unkn own Rx blood sugar diagnostic (Blood #200 ea 06/15/23 5 Unknown Rx Glucose Test strips) blood-glucose meter (Accu-Chek #1 ea 06/27/23 04/10/25 Unknown Rx Guide Glucose Meter) blood sugar diagnostic (Accu-Chek #100 ea 07/26/2309/30 Unknown Rx Guide test strips) lancets (Accu-Chek Softclix #200 ea 09/14/23 04/10/25 Unknown Rx Lancets) gabapentin 100 mg capsule 100 mg PO BID 07/18/2404/1004/09/25 09:00 History potassium chloride 20 mEq 20 meq PO .DAILY@10AM 04/10/25 04/09/25 10:00 History tablet,extended release Diabetic Shoes with Inserts #1 ea 12/11/24 04/10/25 Un known Rx lamotrigine 200 mg tablet 200 mg PO BID 12/30/2404/1004/09/25 09:00 History insulin syringe-needle U-100 1 mL #100 ea 01/02/2509/30 Unknown Rx 31 gauge x 5/16 (TRUEplus Insulin) cam boot to right #1 ea 01/05/25 04/10/25 Unkn own Rx duloxetine 60 mg capsule,delayed 120 mg PO QAM 2 5 04/10/25 04/09/25 08:00 History release fluoxetine 20 mg capsule 20 mg PO QAM 01/26/2504/09/25 08:00 History levothyroxine 200 mcg tablet 200 mcg PO .DAILY@10AM 04/10/25 04/09/25 10:00 History semaglutide 0.25 mg or 0.5 mg (2 0.5 mg (0.736 mL) SUB CUT .weekly 01/27/25 04/10/25 04/08/25 Rx mg/3 mL) subcutaneous pen injector #3 mL (TutorialTabBiofisica) omega 8-euf-lfr-fish oil 1,200 mg 1 cap PO DAILY 01/3004/10/25 04/08/25 History (144 mg-216 mg) capsule (Fish Oil) amiodarone 200 mg tablet (Pacerone) See Rx Instruction s .Route 02/06/25 04/10/25 04/08/25 Rx .COMPLEX #60 tabs amlodipine 10 mg tablet 10 mg PO DAILY #30 tabs 08/0204/10/25 04/09/25 09:00 Rx aspirin 81 mg tablet,delayed 81 mg PO DAILY #30 tabs 0 02/06/25 04/10/25 04/09/25 08:00 Rx release glimepiride 4 mg tablet 2 mg (1/2 x 4 mg) PO BID #30 tabs 02/06/25 04/10/25 04/09/25 09:00 Rx olanzapine 5 mg tablet 2.5 mg (1/2 x 5 mg) PO BID # 30 tabs 02/06/25 04/10/25 04/09/25 08:00 Rx quetiapine 25 mg tablet 25 mg PO BEDTIME #30 tabs 04/10/25 04/08/25 20:00 Rx sennosides 8.6 mg-docusate sodium 1 tab PO BID PRN Con stipation #30 02/06/25 04/10/25 Unknown Rx 50 mg tablet (Stool tabs Softener-Laxative) diazepam 10 mg tablet 10 mg PO BID PRN Anxiety 09/3004/10/25 04/09/25 08:00 History Allergies Allergy/AdvReac Type Severity Reaction Status Date / Time azithromycin (From Zithromax) Allergy rash Verified 03/04/25 14:22 cetirizine (From Zyrtec) Allergy rash Verified 03/04/25 14:22 lisinopril (From Zestril) Allergy ALGY-Swell Verified 03/04/25 14:22 Lip/Tongue/Throat metformin AdvReac Intermediate diarrhea Verified 03/04/25 14:22 topiramate (From Topamax) AdvReac Intermediate diarrhea Verified 03/04/25 14:22 Current Medications Current Medications Generic Name Dose Route Start Last Admin Trade Name Freq PRN Reason Stop Dose Admin Insulin Human Lispro 0 unit 04/10/25 18:00 04/10/25 19:18 Insulin Lispro 100 Unit/1 Ml SUBCUT Not Given WM&BEDTIME JACQUELINE Protocol Quetiapine Fumarate 25 mg 04/10/25 21:00 04/10/25 21:58 Quetiapine 25 Mg Tablet PO 25 mg BEDTIME JACQUELINE Administration PFSH NPU 2 PFSH: Medical History (Updated 04/11/25 @ 06:54 by Sukumar Gamez MD) 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 Left shoulder pain Hypothyroid Hyperlipidemia Hypertension Diabetes mellitus Suspected COVID-19 virus infection Hypothyroidism Chronic diarrhea Tension headache, chronic CVA (cerebral vascular accident) TIA (transient ischemic attack) History of aphasia Hx of kidney disease Hx of type 2 diabetes mellitus History of anemia History of GI bleed History of hypothyroidism Hx of primary hypertension History of bipolar disorder History of anxiety History of depression History of posttraumatic stress disorder (PTSD) Surgical History Hx of appendectomy History of back surgery Hx of cholecystectomy Hx of hysterectomy Hx of neck surgery Social History Smoking and tobacco/nicotine status: never used tobacco/nicotine Alcohol intake: current Alcohol intake frequency: holidays/special occasions only Substance/Drug Use: never Mental Status Exam 2 MSE Comments: This is an overweight versus obese elderly white female looking younger than her stated age with hospital scrubs along with poor grooming but adequate eye contact. No abnormal movements. Cooperative with exam in mild distress. A somewhat laissez-faire attitude. Speech was normal rate and volume. Mood described as okay but worried, affect congruent. Thought process organized. Thought content: Patient denied current suicidal or homicidal ideation, there were no delusions reported but some odd circumstances described that appeared delusional about things that have occurred in the last several days, she endorsed hallucinations most of visual aspect but there were some interactions with said hallucinations that did have an auditory component but she did not appear to be attending to internal stimuli and did not appear delirious. Denied any current thoughts to hurt or kill herself or others. Acknowledged experiencing visual hallucinations, including seeing someone hiding behind a curtain and talking to them. Anxiety is a significant part of her experience, with worries about various things, including social anxiety. Depression has been present since age 18, with feelings of helplessness, hopelessness, and worthlessness. Takes medication to help with sleep. Recently experiencing paraphasias and word-finding difficulties, particularly in the last three days. Mood is described as dependent on her dog and friend Otoniel for emotional support. Attention and concentration appear intact and memory appears thought but none were formally tested. He is alert and oriented x 3. Insight and judgment are limited and impulse control is limited. Vitals/I&O/Wt Last Vital Signs Temp 98.4 F 04/09/25 14:12 Pulse 65 04/10/25 21:49 Resp 16 04/10/25 08:49 BP 134/72 04/10/25 21:49 Pulse Ox 98 04/10/25 21:49 O2 Del Method Room Air 04/10/25 21:49 Weight last 48 hrs Weight 77.111 kg Data NPU 04/10/25 13:13 04/10/25 13:13 A&P Assessment and plan 1. History of bipolar disorder: 2. Acute psychosis: 3. Nightmares: Plan: This is a 69-year-old white female with a long history of mental health issues reporting bipolar disorder but it is unclear whether this is bipolar or major depressive disorder as there are no clear manic periods that were expressed. Recent onset hallucinations mostly visual raises the question of whether there could be an element of delirium however no signs or symptoms or lab results consistent with any delirious process and patient was not having any waxing or waning during the interview. Reports some medication changes possibly but it is unclear that there were any changes need to confer with her pharmacy and outpatient provider. Also recent anesthesia could be related to a post anesthetic issues. Possible low-level delirium with recent onset visual hallucinations and paraphasias. Psychiatric comorbidities present. Mood disturbance noted. Diagnostic uncertainty regarding etiology; consideration of metabolic or medication-related causes for current symptoms but no indication in her laboratory studies that would warrant an inpatient admission on the medical side for that issue/concern. Might warrant continued investigation while in [facility] or some odd outlier or something that may come and go and would need to be identified in a moment. Patient on a benzodiazepine and certainly possible that she has reached a point where her metabolism is ineffective to avoid occasional altered mental status secondary to the benzodiazepine. Continued monitoring of mental status and consideration of admission options pending availability. Plan Recommendation to reach out to regular physician for further evaluation and medication review. Continue to review current medications for potential contribution to symptoms, including possible low-level delirium. Ongoing efforts to secure an appropriate placement for further care. Follow-up evaluation planned for the next day. 1. Continue current medication. 2. Patient with hallucinations, loss of time, odd behaviors that have been over recent days since leading a rehab facility for toe amputation reports of depression, delusions with distorted recall where she believes something happened that did not happen according to brother. She lacks a safe home environment to explore the causes of these acute changes. Agree with transfer to [facility]. 3. Will continue to follow while in the emergency department. PDMP PDMP Reviewed: Not Reviewed Attestations NPU 2 Medical Necessity Statement*: N/A. Please see primary team note for medical necessity but agree with geriatric placement. Coding Level of Care Code Acute Code for Chg Fwd Diagnoses History of bipolar disorder Z86.59 Acute psychosis F23 Nightmares F51.5
--- NOTE | 2025-04-10 20:23 | PC.NURSE ---
96 Hour Involuntary Hold Patient Rights have been reviewed with the patient and a copy of the same has been provided to her. Pesticide Applicator Fabiola Elena was present at bedside during the presentation of Rights.
--- NOTE | 2025-04-10 22:09 | PC.NURSE ---
Pt insulin not given. This nurse entered the room to administer insulin. Pt stated her told her to stop taking insulin and to start ozempic. Pt states that she took her ozempic yesterday. notified and notified of BG of 207. said to hold insulin.
[2025-04-10] MEDS: ketamine 100 mg/mL Inj 5 mL 250 MG IM (23:04)
[2025-04-11] VITALS (15 sets, daily range): BP systolic 132–206; BP diastolic 75–86; PULSE 67–84; RESP 12–25; O2SAT 94–99
[2025-04-11] MEDS: LORazepam 1 MG/0.5 ML injection 2 MG IM (00:21)
[2025-04-11] MEDS: ketamine 100 mg/mL Inj 5 mL 250 MG IM (04:32)
[2025-04-11] MEDS: haloperidol inj 5 mg/mL INJ 1 mL IM (04:33)
--- NOTE | 2025-04-11 05:37 | PC.NURSE ---
Instructed by Dr Singh to hold morning meds until approximately 0630 due to patient sedation.
--- NOTE | 2025-04-11 06:49 | PC.NURSE ---
THIS NURSE ASSUMED CARE @ [id number].
--- NOTE | 2025-04-11 09:22 | PC.NURSE ---
MORNING INSULIN NOT ADMINISTERED DUE TO PATIENT BEING SEDATED AND NOT ABLE TO HAVE MORNING MEAL. DR DURHAM NOTIFIED OF PATIENTS FSBS AND CURRENT STATE AND VRBO TO HOLD INSULIN.
--- NOTE | 2025-04-11 19:38 | PC.NURSE ---
Pt has improved mental status. Pt is not hallucinating anymore. Pt was able to eat lunch and dinner today and took all of her medications. Pt has been very cooperative.
[2025-04-12 05:56] VITALS: BP 147/61; PULSE 67; RESP 16; TEMP 37; O2SAT 95
--- NOTE | 2025-04-12 06:02 | PC.NURSE ---
pt calm and resting in bed. cooperated with morning med pass. requested warm blanket which was given. no further requests at this time.
--- NOTE | 2025-04-12 06:03 | PC.NURSE ---
Facilities that have declined as of NOC shift 04/11/2025: [facility] ([place], [place]): declined d/t acuity (04/10) [facility] ([place], [place]): declined d/t acuity (04/11) [facility] ([place], [place]): declined d/t no beds (04/10) [facility] ([place], [place]): declined d/t no beds and multiple in own waiting room, d/c pending in 1 week (04/10) [facility] ([place], [place]): declined d/t no beds (04/11) [facility] ([place], [place]): declined d/t physician capability (04/11) [facility] ([place], [place]): declined d/t no beds (04/11) [facility] ([place], [place]): denied d/t 96 hr hold not crossing over into [place] (requires 72 hr hold) (04/11) [facility] ([place], [place]): declined d/t no guardian (04/09) [facility] ([place], [place]): declined d/t provider documentation stating pt cannot complete ADLs (04/09) [facility] ([place], [place]): declined d/t no beds (04/11) [facility] ([place], [place]): declined d/t exceeding age limit of 65 (04/11) [facility] ([place], [place]): declined, no reason why (04/11) [facility] ([place], [place]): declined d/t acuity (04/11) [facility] ([place], [place]): declined d/t acuity (04/11) [facility]: declined d/t exceeding age limit (04/11) Pending Review as of 04/12 at 0619: [facility] ([place], [place]) [facility] ([place], [place]) [facility] ([place], [place]) [facility] ([place], [place]) No response from [facility] ([place], [place]). Multiple attempts to contact facility without answer. ED physician and HS aware of the above.
--- NOTE | 2025-04-12 09:10 | PC.NURSE ---
This nurse took over pt care from Nydia LUNA at 0900. Pt resting in bed watching tv at this time.
--- NOTE | 2025-04-12 16:08 | PC.NURSE ---
Pt requesting to use the restroom, pt states she can ambulate but with someone walking with her, pt walking to restroom with staff side by side with pt, pt did well. Pt also brushed teeth in restroom. PT is currently laying in bed watching TV>
[2025-04-12 17:09] VITALS: BP 150/77; PULSE 79; O2SAT 97
[2025-04-12 21:12] VITALS: BP 172/69; PULSE 79; RESP 16; O2SAT 98
[2025-04-13 04:38] VITALS: BP 161/72; PULSE 79; O2SAT 93
--- NOTE | 2025-04-13 08:56 | PC.NURSE ---
patient blood glucose is 211. will admin 4 units of insulin
--- NOTE | 2025-04-13 09:08 | PC.NURSE ---
This nurse took over pt care from Maddy LUNA at 0900. Pt has ate breakfast, is sitting in bed watching TV at this time, no distress noted.
--- NOTE | 2025-04-13 11:39 | PC.NURSE ---
PATIENT GIVEN FLUSHABLE WIPES, DEODORANT, AND NEW SET OF SCRUBS. PATIENT RESTING IN BED AND APPRECIATIVE OF SUPPLIES.
== END 2025-04-13 13:22 ==
PROVIDERS: Emergency Medicine; Physician Assistant; Emergency Provider Emergency Medicine; PCP Family Medicine
DX: F23 Brief psychotic disorder (principal); Z11.52 Encounter for screening for COVID-19; E11.9 Type 2 diabetes mellitus without complications; E78.5 Hyperlipidemia, unspecified; I10 Essential (primary) hypertension; Z86.73 Personal history of transient ischemic attack (TIA), and cerebral infarction without residual deficits
CPT/HCPCS: 36415; 36416; 70450; 70551; 71045; 80048; 80053; 80306; 80307; 81001; 82962; 84443; 85025; 87637; 93005; 96372; 99285; J1630; J1815; J2060; J3486; J3490; J7040; J9999

== ENCOUNTER 2025-04-24 17:39 | Emergency (ER) | payer MEDICARE, OTHER, SELFPAY ==
--- OUTSIDE RECORDS SUMMARY | 2025-04-24 17:43 | XMS_ITS | Encounter Summary ---
Author Organization [facility] Address [address] [place] [address] Care Team Providers Care Head Of Music Name Role Phone Jayesh Krueger MD Primary Care Provider [phone] Encounter Details Date Type Department Care Team (Latest Contact Info) Description 12/31/2003 Outpatient Historical [facility] Endocrinology-[facility] [place] [address] [place] [address] Chin Patel MD NO ADDRESS ON FILE DIABETES UNCOMPL ADULT-TYPE II (CMS/FORMERLY [facility]) (Primary Dx); HYPERLIPIDEMIA NEC/NOS; HYPERTENSION NOS; HYPOTHYROIDISM NOS Social History Tobacco Use Types Packs/Day Years Used Date Smoking Tobacco: Never Assessed Comments Unknown Sex and Gender Information Value Date Recorded Sex Assigned at Not on file 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 Gender Identity Not on file Sexual Orientation Not on file documented as of this encounter Plan of Treatment Not on file documented as of this encounter Visit Diagnoses Diagnosis Type II or unspecified type diabetes mellitus without mention of complication, not stated as uncontrolled- Primary Other and unspecified hyperlipidemia Unspecified essential hypertension Unspecified hypothyroidism documented in this encounter Care Teams Head Of Music Relationship Specialty Start Date End Date Jayesh Krueger MD [address] [place] [address] PCP - General Internal Medicine 12/19/16 documented as of this encounter
--- OUTSIDE RECORDS SUMMARY | 2025-04-24 17:43 | XMS_ITS | Encounter Summary ---
Author Organization [facility] Address [address] [place] [address] Care Team Providers Care Flame Planer Name Role Phone Jayesh Krueger MD Primary Care Provider [phone] Encounter Details Date Type Department Care Team (Latest Contact Info) Description 07/05/2005 Outpatient [facility] Podiatry-Rajesh Cleary [place] [address] [place] [address] Anthony Andrews, DPM [address] [place] [address] OTHER HAMMER TOE (Primary Dx); PERIPH VASCULAR DIS NOS; DIABETES TYPE II W NEURO MANIFESTATIONS (CMS/HCC) Social History Tobacco Use Types Packs/Day Years Used Date Smoking Tobacco: Never Assessed Comments Unknown Sex and Gender Information Value Date Recorded Sex Assigned at Not on file Legal 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
--- OUTSIDE RECORDS SUMMARY | 2025-04-24 17:43 | XMS_ITS | Encounter Summary ---
Author Organization [facility] Address [address] [place] [address] Care Team Providers Care Jawbone Puller Name Role Phone Jayesh Krueger MD Primary Care Provider [phone] Encounter Details Date Type Department Care Team (Latest Contact Info) Description 12/10/2003 Outpatient Historical [facility] Imaging Services [address] 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
--- OUTSIDE RECORDS SUMMARY | 2025-04-24 17:43 | XMS_ITS | Encounter Summary ---
Author Organization [facility] Address [address] [place] [address] Care Team Providers Care Process Development Associate Name Role Phone Jayesh Krueger MD Primary Care Provider [phone] Encounter Details Date Type Department Care Team (Latest Contact Info) Description 05/03/[address] 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 Gender Identity Not on file Sexual Orientation Not on file documented as of this encounter Plan of Treatment Not on file documented as of this encounter Visit Diagnoses Diagnosis Type II or unspecified type diabetes mellitus without mention of complication, not stated as uncontrolled- Primary Other and unspecified hyperlipidemia Unspecified essential hypertension Unspecified hypothyroidism documented in this encounter Care Teams Process Development Associate Relationship Specialty Start Date End Date Jayesh Krueger MD [address] [place] [address] PCP - General Internal Medicine 12/19/16 documented as of this encounter
--- OUTSIDE RECORDS SUMMARY | 2025-04-24 17:43 | XMS_ITS | Encounter Summary ---
Author Organization [facility] Address [address] [place] [address] Care Team Providers Care Structural Mill Supervisor Name Role Phone Jayesh Krueger MD Primary Care Provider Encounter Details Date Type Department Care Team (Late st Contact Info) Description 01/05/2003 Outpatient Historical [facility] Thomas Dailey MD [address] 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
--- OUTSIDE RECORDS SUMMARY | 2025-04-24 17:43 | XMS_ITS | Encounter Summary ---
Author Organization [facility] Address [address] [place] [address] Care Team Providers Care Air Value Tester Name Role Phone Jayesh Krueger MD Primary Care Provider [phone] Encounter Details Date Type Department Care Team (Late st Contact Info) Description 09/06/2003 Emergency [facility] Emergency Department [address] 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
--- OUTSIDE RECORDS SUMMARY | 2025-04-24 17:43 | XMS_ITS | Encounter Summary ---
Author Organization [facility] Address [address] [place] [address] Care Team Providers Care Lockstitch Coat Joiner Name Role Phone Jayesh Krueger MD Primary Care Provider [phone] Encounter Details Date Type Department Care Team (Latest Contact Info) Description 02/17/2003 Outpatient Historical [facility] Imaging Services [address] 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
--- OUTSIDE RECORDS SUMMARY | 2025-04-24 17:43 | XMS_ITS | Encounter Summary ---
Author Organization [facility] Address [address] [place] [address] Care Team Providers Care Transformation Architect Name Role Phone Jayesh Krueger MD Primary Care Provider [phone] Encounter Details Date Type Department Care Team (Latest Contact Info) Description 01/12/2003 Inpatient Historical [facility] Operating Room [address] 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
--- OUTSIDE RECORDS SUMMARY | 2025-04-24 17:43 | XMS_ITS | Encounter Summary ---
Author Organization [facility] Address [address] [place] [address] Care Team Providers Care Car Checker Name Role Phone Jayesh Krueger MD Primary Care Provider [phone] Encounter Details Date Type Department Care Team (Latest Contact Info) Description 11/04/2004 Outpatient Historical [facility] Endocrinology-[facility] [place] [address] [place] [address] Chin Patel MD NO ADDRESS ON FILE DIABETES MELLITUS TYPE II-UNCOMPL (CMS/HCC) (Primary Dx); HYPERLIPIDEMIA NEC/NOS; THYROTOX NOS NO CRISIS; HYPOTHYROIDISM NOS Social History Tobacco Use Types Packs/Day Years Used Date Smoking Tobacco: Never Assessed Comments Unknown Sex and Gender Information Value Date Recorded Sex Assigned at Not on file 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
--- OUTSIDE RECORDS SUMMARY | 2025-04-24 17:43 | XMS_ITS | Encounter Summary ---
Author Organization [facility] Address [address] [place] [address] Care Team Providers Care Professor Of Theology Name Role Phone Jayesh Krueger MD Primary Care Provider [phone] Encounter Details Date Type Department Care Team (Latest Contact Info) Description 12/25/2002 Outpatient Historical [facility] [address] [place] [address] [place] [address] Thomas Dailey MD [address] [place] [address] PREOP CARDIOVASC EXAM (Primary Dx) Social History Tobacco Use Types Packs/Day Years Used Date Smoking Tobacco: Never Assessed Comments Unknown Sex and Gender Information Value Date Recorded Sex Assigned at Not on file 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
--- OUTSIDE RECORDS SUMMARY | 2025-04-24 17:43 | XMS_ITS | Encounter Summary ---
Author Organization [facility] Address [address] [place] [address] Care Team Providers Care Recreation Engineer Name Role Phone Jayesh Krueger MD Primary Care Provider [phone] Encounter Details Date Type Department Care Team (Latest Contact Info) Description 05/08/2005 Outpatient Historical [facility] Endocrinology-[facility] [place] [address] [place] [address] Chin Patel MD NO ADDRESS ON FILE DIABETES MELLITUS TYPE II-UNCOMPL (CMS/HCC) (Primary Dx); HYPERLIPIDEMIA NEC/NOS; HYPERTENSION NOS Social History Tobacco Use Types Packs/Day Years Used Date Smoking Tobacco: Never Assessed Comments Unknown Sex and Gender Information Value Date Recorded Sex Assigned at Not on file Legal 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 Female 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 Gender Identity Not on file Sexual Orientation Not on file documented as of this encounter Plan of Treatment Not on file documented as of this encounter Visit Diagnoses Diagnosis Type II or unspecified type diabetes mellitus without mention of complication, not stated as uncontrolled- Primary Other and unspecified hyperlipidemia Unspecified essential hypertension documented in this encounter Care Teams Recreation Engineer Relationship Specialty Start Date End Date Jayesh Krueger MD [address] [place] [address] PCP - General Internal Medicine 12/19/16 documented as of this encounter
--- OUTSIDE RECORDS SUMMARY | 2025-04-24 17:43 | XMS_ITS | Encounter Summary ---
Author Organization [facility] Address [address] [place] [address] Care Team Providers Care Donor Technician Name Role Phone Jayesh Krueger MD Primary Care Provider [phone] Encounter Details Date Type Department Care Team (Latest Contact Info) Description 11/27/2002 Outpatient Historical [facility] Imaging and Laboratory Services [address] [place] [id number] Thomas Dailey MD [address] [place] [address] DISC DIS NEC/NOS-LUMBAR (Primary Dx) Social History Tobacco Use Types Packs/Day Years Used Date Smoking Tobacco: Never Assessed Comments Unknown Sex and Gender Information Value Date Recorded Sex Assigned at Not on file Legal 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
--- OUTSIDE RECORDS SUMMARY | 2025-04-24 17:44 | XMS_ITS | Data Portability ---
Author Organization JODY - Demetrius Carreon [facility] Rowan Mariano [facility] Address [address] [facility] [address] [place] [address] Assessment No assessment recorded. Plan of Treatment [...] By Organization Details Last Modified Time 02/18/2025 [id number] Sugars consistently over 200. Was on ozempic at home. Discussed bringing ozempic in from home and she agrees. Will also d/c glimepride and start tresiba 15 units at hs. [email or web address] Not available 02/19/2025 13:24:46 02/23/2025 [id number] Discussed possib ly related to medications vs recent TIA's vs electrolyte abnormalities. Labs pending. [email or web address] Not available 02/23/2025 17:12:35 03/04/2025 [id number] Agrees to stop pain pill and continue relaxant. Discussed goals for hours of sleep decrease with age. encouraged to avoid naps, stay active during the day. Currently on sleep aid, will give her time to adjust behaviors. f/u soon. Not available 03/04/2025 15:28:13 03/11/2025 [id number] More clear heade d as she is no longer taking narcotics but continues to have shoulder pain Plan for injection on Sunday. [email or web address] Not available 03/11/2025 15:21:48 03/16/2025 [id number] Right shoulder injected with 1ml betamethasone and 1ml lidocaine without issues. Tolerated injection well. [email or web address] Not available 03/16/2025 14:34:37 Reason for Referral None Reported. Problems Name Problem SNOMED Code Status Onset Date Resolution Date Notes Provider Name and Address Organization Details Recorded Time Benign essential hypertens ion 7056924 Active 2021 Hypertens ion; 2 4:38PM by Desiree Rodrigez, Office Visit; Promoted; acuity set as *; Not Available [facility] 3 03:10:42 Transient ischemic attack due to embolism 623297610 Active 2021 TIA x6; 2 4:38PM by Desiree Rodrigez, Office Visit; Promoted; acuity set as *; Not Available [facility] 3 03:10:42 Gallbladd er endoscopy Active 2021 Gallbladd er removed; 2 4:38PM by Desiree Rodrigez, Office Visit; Promoted; acuity set as *; Not Available [facility] 3 03:10:42 Total hysterect rupali Active 2021 Hysterect rupali, Total; 2 4:38PM by Desiree Rodrigez, Office Visit; Promoted; acuity set as *; Not Available [facility] 3 03:10:42 Hyperlipi demia 26203344 Active 2021 Hyperlipi demia; 2 4:38PM by Desiree Rodrigez, Office Visit; Promoted; acuity set as *; Not Available [facility] 3 03:10:42 Post-disc harge follow-up 610449211 Active 2024 BENITA stein [facility], [facility] 5 17:28:24 History of amputatio n of left great toe 90532996696 557541 Active 2024 BENITA stein [facility] 5 17:28:25 Osteomyel itis of forefoot 826780130 [facility] 17:28:26 Chronic atrial fibrillat ion 107662828 [facility] 20[facility] 17:28:27 Hyperglyc emia due to type 2 diabetes mellitus 63400818439 9109 Active 2024 [facility] 5 13:23:45 Problem Notes None recorded. Medical Equipment None Reported. Allergies Allergen ID Allergen Name Allergen Category Reaction Reaction Severity Criticality Documentation Date Start Date Code Code System Note Provider Name and Address Organization Details Recorded Time 74126 Zithromax medicatio n hives Not available Not available 02/03/2023 4 RxNorm React ion: Hives ; Comme nt: Recor ded 03/30 4:38P M by Bruce Rodrigez, Offic e Visit ; Promo rodo; Signi lisa ce: *; ; Not Available [facility] 3 02:28:22 03679 Zestril medicatio n hives Not available Not available 02/03/2023 2 RxNorm React ion: Hives ; Comme nt: Recor ded 03/30 4:38P M by Bruce Rodrigez Offic e Visit ; Promo rodo; Amyi lisa ce: *; ; Not Available [facility] 3 02:28:23 Medications Name Sig Start Date [...] completed Not Available Not Available Not Available Toprol XL 25 mg tablet,ex tended release TAKE 1 TABLET BY MOUTH EVERY DAY active Not Available Not Available No t Available atorvasta tin 20 mg tablet TAKE 1 TABLET BY MOUTH EVERY DAY AT 10 AM active Not Available Not Available No t Available lamotrigi ne 200 mg tablet TAKE 1 TABLET BY MOUTH TWICE A DAY active Not Available Not Available No t Available amiodaron e 200 mg tablet TAKE 1 TABLET BY MOUTH EVERY DAY active Not Available Not Available No t Available hydrocodo ne 5 mg-acetam inophen 325 mg tablet Take 1 tablet every 8 hours by oral route as needed for 30 days. 2024 active Not Available Not Available Not Avai lable olanzapin e 5 mg tablet TAKE 1 TABLET BY MOUTH EVERYDAY AT BEDTIME active Not Available Not Available No t Available Seroquel 25 mg tablet TAKE 1 TABLET BY MOUTH EVERY DAY AT BEDTIME active Not Available Not Available [...] 25 mg tablet active 0; Recorded 03/30/20 22 4:38PM by Desiree Rodrigez, Office Visit; Not Available Not Available Not Available Zocor 80 mg tablet active 0; Recorded 03/30/20 4:38PM by Desiree Rodrigez, Office Visit; Not Available Not Available Not Available amlodipin e 10 mg tablet TAKE 1 TABLET BY MOUTH EVERY DAY active Not Available Not Available No t Available cephalexi n 500 mg capsule TAKE [...] 0.5 MG (0.736 ML) SUBCUTAN EOUSLY WEEKLY active Not Available Not Available No t Available Ultra-Fin e Pen Needle 31 gauge x 3/16 TO USE WITH LANTUS active Not Available Not Available No t Available Vitals Date Recorded Body weight Heart rate Respiratory rate Body temperature Oxygen saturation Oxygen saturation in Arterial blood by Pulse oximetry Systolic And Diastolic Provider Name and Address Organization Details Last Updated DateTime 5 91386.8 1 g 90 /min 18 /min 97.3 [degF] 95 % 95 % 131/79 mm[Hg] [facility] 5 13:21:29 Date Recorded Body weight Heart rate Respiratory rate Body temperature Oxygen saturation Oxygen saturation in Arterial blood by Pulse oximetry Systolic And Diastolic Provider Name and Address Organization Details Last Updated DateTime 5 42236.8 1 g 86 /min 18 /min 97.4 [degF] 97 % 97 % 128/68 mm[Hg] [facility] 5 16:51:59 Date Recorded Body weight Heart rate Respiratory rate Body temperature Oxygen saturation Oxygen saturation in Arterial blood by Pulse oximetry Systolic And Diastolic Provider Name and Address Organization Details Last Updated DateTime 5 96778.8 1 g 80 /min 18 /min 97.4 [degF] 96 % 96 % 115/67 mm[Hg] [facility] 5 15:25:05 Date Recorded Body weight Heart rate Respiratory rate Body temperature Oxygen saturation Oxygen saturation in Arterial blood by Pulse oximetry Systolic And Diastolic Provider Name and Address Organization Details Last Updated DateTime 5 11785.8 9 g 84 /min 18 /min 97.3 [degF] 91 % 91 % 108/80 mm[Hg] BENITA [facility] 5 14:49:16 Date Recorded Body weight Heart rate Respiratory rate Body temperature Oxygen saturation Oxygen saturation in Arterial blood by Pulse oximetry Systolic And Diastolic Provider Name and Address Organization Details Last Updated DateTime 5 56856.8 9 g 76 /min 22 /min 97.3 [degF] 94 % 94 % 139/80 mm[Hg] BENITA [facility] 5 14:31:19 Social History None recorded. Functional Status None recorded. Mental Status None recorded. Family History Nothing Reported. Medical History No medical history recorded. Gynecological HistoryNo gynecological history recorded. Obstetrics History GPAL:G 0 P 0 0 0 0 Immunizations Vaccine Type Date Status Note Provider Nam e and Address Organization Details Recorded Time Influenza, split virus, quadrivalent, PF 8 completed Not Available [facility] 03/16/2025 13:29:41 Influenza, split virus, quadrivalent, PF 2 completed Not Available [facility] 03/16/2025 13:29:41 Influenza, high-dose, quadrivalent, PF 3 completed Not Available [facility] 03/16/2025 13:29:41 zoster recombinant 3 completed Not Available [facility] 03/16/2025 13:29:41 COVID-19, mRNA, LNP-S, PF, 50 mcg/0.5 mL 3 completed Not Available [facility] 03/16/2025 13:29:41 Influenza, high-dose, trivalent, PF 4 completed Not Available [facility] 03/16/2025 13:29:41 COVID-19, mRNA, LNP-S, PF, 50 mcg/0.5 mL 4 completed Not Available [facility] 03/16/2025 13:29:41 Td(adult) unspecified formulation 2 completed Not Available [facility] 02/03/2023 02:27:32 Past Encounters Encounter ID Performer Location Encounter Start Date Encounter Closed Date Diagnosis/Indication Diagnosis SNOMED-CT Code Diagnosis ICD10 Code Diagnosis IMO Codes Diagnosis Note [id number] Darryn Cardoso DO [facility] ([facility]) [address] [place] [address] 02/11/2025 13:10:08 02/17/2025 12:06:33 Post-discharge follow-up 318011175 Z09 464254 History of amputation of left great toe 1570191180 3455873 Z89.412 60721643 Osteomyeli tis of forefoot 782522839 M86.9 9154314433 Chronic at rial fibrillation 991933815 I48.20 [id number] Darryn Cardoso DO [facility]) [address] [place], [place] [address] 02/18/2025 12:58:33 02/23/2025 11:38:39 History of amputation of left great toe 0936182969 1643899 Z89.412 65778389 Benign ess ential hypertension 0380599 I10 Hyperglyce kedar due to type 2 diabetes mellitus 8407825538 11385 E11.65 [id number] Darryn Cardoso DO [facility] ([facility]) [address] [place] [address] 02/23/2025 13:36:40 02/24/2025 16:47:22 Tremor 47460067 R25.1 [id number] Darryn Cardoso DO [facility]) [address] [place], [place] [address] 03/04/2025 14:41:47 03/10/2025 11:52:18 Primary insomnia 8349065 F51.01 56921 Chronic pain 01897539 G8 9.29 [id number] Darryn Cardoso DO [facility]) [address] [place] [address] 03/11/2025 12:36:43 03/13/2025 11:01:12 Tendinitis of right shoulder 3052358606 131112 M77.8 [id number] Darryn Cardoso DO [facility]) [address] [place] [address] 03/16/2025 13:29:19 03/17/2025 14:16:26 Biceps tendinitis 310190949 M75.21 [id number] Health Concerns Section Related Observation LastModified by Organization Detai ls LastModified Time None Recorded Concern Status LastModified by Organization Details LastModified Time None Recorded Advance Directives Directive None Recorded Payers Insurance Date Sequence Insurance Name Policy Number Policy Swain Covered Member ID Swain Member ID Guarantor Name 03/25/2025 2 UNSPECIFIED REMIT PAYOR Kaylee Butler Biesen 03/17/2025 2 () Kaylee Butler Biesen [id number] Kaylee S Biesen 02/11/2025 1 *SELF PAY* Robert Butler Biesen 03/11/2025 [place] - [facility] INCLUDE 234 BEDS AT THE [facility] (MEDICARE) Kaylee Butler Biesen [id number] Kaylee Butler Biesen 03/11/2025 1 [place] Kaylee Butler Biesen [id number] Kaylee Butler Biesen Notes Date Note [...] taking ozempic at home. Darryn Cardoso DO [address] [place] [address], [phone], [facility], [place] 02/22/2025 14:33:07 5 text/html Care Management - Atrial FibrillationReported by PatientCare ManagementFor prognosis, patient reportsexpected outcome: improve. For duration, patient reportsless than 12 months but expected to become chronic. For medications, patient reportscompliant with medication.ROS as noted in the HPI c/o tremor in hands. Darryn Cardoso DO [address] [place] [address], [phone], [facility] 02/23/2025 17:12:48 5 text/html Care Management [...] and pain pill she becomes confused. Darryn DO Walker [address] [place] [address], [phone], [facility] 03/08/2025 13:57:25 5 text/html Care Management - Atrial FibrillationReported by PatientCare ManagementFor prognosis, patient reportsexpected outcome: improve. For duration, patient reportsless than 12 months but expected to become chronic. For medications, patient reportscompliant with medication.ROS as noted in the HPI reports continued pain in shoulder. thinking improved since stopping norco. Darryn DO Walker [address] [place] [address], [phone], [facility] 03/11/2025 15:22:33 5 text/html Care Management - Atrial FibrillationReported by PatientCare ManagementFor prognosis, patient reportsexpected outcome: improve. For duration, patient reportsless than 12 months but expected to become chronic. For medications, patient reportscompliant with medication.ROS as noted in the HPI joint injection Darryn DO Walker [address] [place] [address], [phone], [facility] 03/16/2025 15:02:41 OBGyn Episode No OBEpisode recorded.
--- OUTSIDE RECORDS SUMMARY | 2025-04-24 17:44 | XMS_ITS | Encounter Summary ---
Author Organization [facility] Address [address] [place] [address] Care Team Providers Care Supervisor Public Message Service Name Role Phone Jayesh Krueger MD Primary Care Provider [phone] Encounter Details Date Type Department Care Team (Latest Contact Info) Description 06/11/2000 Outpatient Historical [facility] Nasir Uriostegui MD NO ADDRESS ON FILE Headache(784.0) (Primary Dx) Social History Tobacco Use Types Packs/Day Years Used Date Smoking Tobacco: Never Assessed Comments Unknown Sex and Gender Information Value Date Recorded Sex Assigned at Not on file Legal 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
--- OUTSIDE RECORDS SUMMARY | 2025-04-24 17:44 | XMS_ITS | Encounter Summary ---
Author Organization [facility] Address [address] [facility] Attn: [place] [address] Care Team Providers Care Analysis Consultant Name Role Phone Jayesh Krueger MD Primary Care Provider [phone] Encounter Details Date Type Department Care Team (Late st Contact Info) Description 01/25/2000 Outpatient Historical Thomas Dailey MD [address] 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
--- OUTSIDE RECORDS SUMMARY | 2025-04-24 17:44 | XMS_ITS | Encounter Summary ---
Author Organization [facility] Address [address] [place] [address] Care Team Providers Care Online Media Buyer Name Role Phone Jayesh Krueger MD Primary Care Provider [phone] Encounter Details Date Type Department Care Team (Late st Contact Info) Description 01/12/2010 Ancillary Orders [facility] Orthoped[facility]- 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 Gender Identity Not on file Sexual Orientation Not on file documented as of this encounter Plan of Treatment Not on file documented as of this encounter Results * XR KNEE 1 OR 2 VW LEFT (01/12/2010 11:48 AM CDT) Anatomical Region Laterality Modality Lower Extremity Computed Radiogr aphy Narrative 08/03/2011 9:33 AM MANAGER CARDIOVASCULAR AP and lateral radiographs of both knees [...] pain documented in this encounter Care Teams Online Media Buyer Relationship Specialty Start Date End Date Jayesh Krueger MD [address] [place] [address] PCP - General Internal Medicine 12/19/16 documented as of this encounter
--- OUTSIDE RECORDS SUMMARY | 2025-04-24 17:44 | XMS_ITS | Clinical Summary ---
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 Gender Identity Not on file Sexual Orientation Not on file Occupation Industry Job Start Date Job End Date Not on file Not on file Not on file Not on file Last Filed Vital Signs Vital Sign Reading Time Taken Comments Blood Pressure 136/76 04/30/2020 8:37 AM CDT Pulse 72 04/30/2020 8:37 AM CDT Temperature 36.4 C (97.5 F) 06/10/2013 9:02 AM FLIGHT CREW SCHEDULER Respiratory Rate 11 06/10/2013 4:00 PM FLIGHT CREW SCHEDULER Oxygen Saturation 95% 06/10/2013 4:00 PM FLIGHT CREW SCHEDULER Inhaled Oxygen Concentration - - Weight 85.3 [...] 2025 05/12/2013 Medical Devices Implanted Type Area Manager Shell Device Identifier Shelf Expiration Date Model / Serial / Lot Cement Palacos Sgl [id number] - [id number] Implanted:Qty: 1 on 04/02/2013 at [facility] Cement Left: Knee [employer] 11/05/2017 00-1112-14 0- / / [id number] Tray Tib [place] Uni Szb Lm [id number] - [id number] Implanted:Qty: 1 on 04/02/2013 at [facility] Knee Left: Knee [employer] 07/08/2022 [id number] / / [id number] Bearing Ruthie Mathew Md Sz 5 [id number] - [id number] Implanted:Qty: 1 on 04/02/2013 at [facility] Knee Left: Knee [employer] 07/08/2016 [id number] / / [id number] [place] Partial Knee System, Cemented Twin Pegged Femoral Implanted:Qty: 1 on 04/02/2013 by Jean-Paul Kirkland MD at [facility] Left: Knee [employer] 10/06/2022 [id number] / / [id number] Procedures Procedure Name Priority Date/Time Associated Diagnosis [...] 9:15 AM CDT) MICROALBUMIN, URINE 0.2 mg/dL [facility] Comment: Unable to flag abnormal result(s), please refer to reference range(s) below: Reference Range: Not established Creatinine, Urine 37.9 20 - 320 mg/dL [facility] MICROALBUMIN/CREA T RATIO, UR 5 <30.0 mcg/mg Cr [facility] Comment: The ADA (Diabetes Care 26: S94-S98, 2003) defines abnormalities in albumin excretion as follows: Category Result (mcg/mg creatinine) Normal <30 Microalbuminuria 30-299 Clinical albuminuria > or = 300 The ADA recommends that at least two of three specimens collected within a 3-6 month period be abnormal before considering a patient to be within a diagnostic category. Test Performed by [employer] [employer] [facility], [address] [place] [address] Leonel Jarquin M.D., Ph.D., Director of Laboratories , CLIA [id number] 12/13/2009 9:15 AM CDT 12/13/2009 10:51 AM CDT Comment:URINE us Brice VARGAS URINE ORDERABLES Final Resul t Performing Organization Address [facility] Phone Number INTERFACE SYSTEM Refer to clinic/hospital department [facility] CLIA# [id number] [facility] [place] [address] * (ABNORMAL) HEMOGLOBIN A1C (12/13/2009 9:12 AM CDT) HEMOGLOBIN A1C 7.7(H) 4.0 - 6.0 %A1C [facility] Blood specimen (specimen) 12/13/2009 9:12 AM CDT 12/13/2009 9:26 AM CDT us Brice VARGAS CHEMISTRY ORDERABLES Final R esult Performing Organization Address [facility] Phone Number INTERFACE SYSTEM Refer to clinic/hospital department [facility] CLIA# [id number] [address] [place] [address] * (ABNORMAL) LIPID PANEL (12/13/2009 9:12 AM CDT) CHOLESTEROL 121 0 - 200 mg/dL [facility] TRIGLYCERIDE 291(H) 0 - 150 mg/dL [facility] HDL 16(L) 40 - 60 mg/dL [facility] LDL CALCULATED 47 0 - 100 mg/dL [facility] Comment: Calculated LDL Reference: <100 Optimal 100-129 Near Optimal 130-159 Borderline High >160 High Risk CALCULATED TOTAL CHOLESTEROL TO HDL RATIO 7.56(H) 3.27 - 4.44 [facility] Blood specimen (specimen) 12/13/2009 9:12 AM CDT 12/13/2009 9:26 AM CDT Brice VARGAS CHEMISTRY ORDERABLES Edited INTERFACE SYSTEM Refer to clinic/hospital department [facility] CLIA# [id number] [facility] [address] from Last 3 Months or Most Recently Relevant to Health [place] [address] MEDICARE PART A AND B [employer] Advance Directives For more information, please contact: [phone] * Full Code (Latest Code Status on File) Date Activated Date Inactivated Comments 04/02/2013 10:34 AM 04/03/2013 5:21 PM * Full Code Date Activated Date Inactivated Comments 04/02/2013 6:45 AM 04/02/2013 10:34 AM Care Teams Mill Operator Relationship Specialty Start Date End Date Jayesh Krueger MD [address] [place] [address] PCP - General Internal Medicine 12/19/16
--- OUTSIDE RECORDS SUMMARY | 2025-04-24 17:44 | XMS_ITS | Encounter Summary ---
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
--- OUTSIDE RECORDS SUMMARY | 2025-04-24 17:44 | XMS_ITS | Encounter Summary ---
Author Organization [facility] Address [address] [place] [address] Care Team Providers Care Technical Expert Name Role Phone Jayesh Krueger MD Primary Care Provider [phone] Encounter Details Date Type Department Care Team (Latest Contact Info) Description 12/13/1999 Outpatient Historical [facility] Nasir Uriostegui MD NO ADDRESS ON FILE Degeneration of cervical intervertebral disc (Primary Dx) Social History Tobacco Use Types Packs/Day Years Used Date Smoking Tobacco: Never Assessed Comments Unknown Sex and Gender Information Value Date Recorded Sex Assigned at Not on file Legal 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
--- OUTSIDE RECORDS SUMMARY | 2025-04-24 17:44 | XMS_ITS | Encounter Summary ---
Author Organization [facility] Address [address] [facility] Attn: [place] [address] Care Team Providers Care Hide Buyer Name Role Phone Jayesh Krueger MD Primary Care Provider [phone] Encounter Details Date Type Department Care Team (Late st Contact Info) Description 05/24/2000 Outpatient Historical Thomas Dailey MD [address] 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
--- OUTSIDE RECORDS SUMMARY | 2025-04-24 17:44 | XMS_ITS | Encounter Summary ---
Author Organization [facility] Address [address] [place] [address] Care Team Providers Care Director Specialty Name Role Phone Jayesh Krueger MD Primary Care Provider [phone] Encounter Details Date Type Department Care Team (Latest Contact Info) Description 10/31/2006 Outpatient Historical [facility] Endocrinology-[facility] [place] [address] [address] [place]ice [place]connell, [place] [address] [place] [address] DM w/o Complication Type II (CMS/HCC) (Primary Dx); Other and Unspecified Hyperlipidemia; Unspecified Essential Hypertension Social History Tobacco Use Types Packs/Day Years Used Date Smoking Tobacco: Never Assessed Comments Unknown Sex and Gender Information Value Date Recorded Sex Assigned at Not on file Legal Sex Female 5:34 AM DISABILITY MANAGER Gender Identity Not on file Sexual Orientation Not on file documented as of this encounter Plan of Treatment Not on file documented as of this encounter Visit Diagnoses Diagnosis Type II or unspecified type diabetes mellitus without mention of complication, not stated as uncontrolled- Primary Other and unspecified hyperlipidemia Unspecified essential hypertension documented in this encounter Care Teams Director Specialty Relationship Specialty Start Date End Date Jayesh Krueger MD [address] [place] [address] PCP - General Internal Medicine 12/19/16 documented as of this encounter
--- OUTSIDE RECORDS SUMMARY | 2025-04-24 17:44 | XMS_ITS | Clinical Summary ---
Author Organization [facility] Address [address] [place] [address] Care Team Providers Care Room Server Name Role Phone Jayesh Krueger MD Primary Care Provider [phone] Allergies Active Allergy Reactions Criticality Noted Date [...] mouth 2 times daily. Active glucosamine/cho ndr santamarai A sod (Glucosamine-Ch ondroitin) 1,500-1,200 mg/30 mL [...] on file Legal Sex Female 12:52 AM TRANSITIONAL CARE MANAGER Gender Identity Not on file [...] RS (1 of 1 - PCV) 2004 RSV VACCINE (60+ or ) (1 - Risk 50-74 years 1-dose series) 2004 ZOSTER VACCINE (1 of 2) 2004 BREAST CANCER SCREENING 12/22/2016 12/23/2015, 11/06 OSTEOPOROSIS SCREENING 08/30/2023 08/30/2018, 2018 INFLUENZA VACCINE (#1) 2025 05/12/2013 COLORECTAL SCREENING 08/28/2026 08/28/2016 Colorectal Cancer Screening 08/28/2026 Medical Devices Implanted Type Area Senior Test Engineer Device Identifier Shelf Expiration Date Model / Serial / Lot Cement Palacos Sgl [id number] - [id number] Implanted:Qty: 1 on 04/02/2013 Cement Left: Knee [employer] 11/05/2017 [id number] 0- / / [id number] Bearing Ruthie Mathew Md Sz 5 [id number] - [id number] Implanted:Qty: 1 on 04/02/2013 Knee Left: Knee [employer] 07/08/2016 [id number] / / [id number] Tray Tib Lares Uni Szb Lm [id number] - [id number] Implanted:Qty: 1 on 04/02/2013 Knee Left: Knee [employer] 07/08/2022 [id number] / / [id number] Lares Partial Knee System, Cemented Twin Pegged Femoral Implanted:Qty: 1 on 04/02/2013 by Jean-Paul Kirkland MD Left: Knee [employer] 10/06/2022 [id number] / / [id number] Insurance MEDICARE PART A AND B [facility] Care Teams Room Server Relationship Specialty Start Date End Date Jayesh Krueger MD [address] [place] [address] PCP - General 10/21/20
--- OUTSIDE RECORDS SUMMARY | 2025-04-24 17:44 | XMS_ITS | Encounter Summary ---
Author Organization [facility] Address [address] [facility] Attn: [place] [address] Care Team Providers Care Physiatrist Name Role Phone Jayesh Krueger MD Primary Care Provider [phone] Encounter Details Date Type Department Care Team (Late st Contact Info) Description 03/05/2000 Outpatient Historical Thomas Dailey MD [address] 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
--- OUTSIDE RECORDS SUMMARY | 2025-04-24 17:44 | XMS_ITS | Encounter Summary ---
Author Organization [facility] Address [address] [place] [address] Care Team Providers Care Button Breaker Operator Name Role Phone Jayesh Krueger MD Primary Care Provider [phone] Encounter Details Date Type Department Care Team (Late st Contact Info) Description 09/01/1999 Outpatient Historical [facility] Cardiac Thoracic Vascular Surg [place] [address] [place] [address] Social History Tobacco Use Types Packs/Day Years Used Date Smoking Tobacco: Never Assessed Comments Unknown Sex and Gender Information Value Date Recorded Sex Assigned at Not on file Legal Sex Female 5:34 AM POSTBED STITCHER Gender Identity Not on file Sexual Orientation Not on file documented as of this encounter Plan of Treatment Not on file documented as of this encounter Visit Diagnoses Not on filedocumented in this encounter Care Teams Button Breaker Operator Relationship Specialty Start Date End Date Jayesh Krueger MD [address] [place] [address] PCP - General Internal Medicine 12/19/16 documented as of this encounter
--- OUTSIDE RECORDS SUMMARY | 2025-04-24 17:44 | XMS_ITS | Encounter Summary ---
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
--- OUTSIDE RECORDS SUMMARY | 2025-04-24 17:44 | XMS_ITS | Encounter Summary ---
Author Organization [facility] Address [address] [place] [address] Care Team Providers Care Aerospace Engineer Officer Armament Name Role Phone Jayesh Krueger MD Primary Care Provider [phone] Encounter Details Date Type Department Care Team (Late st Contact Info) Description 02/06/2001 Outpatient Historical [facility] [address] [place] [address] Sotero Ortiz MD NO ADDRESS ON FILE Myalgia and myositis, unspecified (Primary Dx); Headache(784.0) Social History Tobacco Use Types Packs/Day Years Used Date Smoking Tobacco: Never Assessed Comments Unknown Sex and Gender Information Value Date Recorded Sex Assigned at Not on file Legal Sex Female 5:34 AM EVP MANAGING DIRECTOR Gender Identity Not on file Sexual Orientation Not on file documented as of this encounter Plan of Treatment Not on file documented as of this encounter Visit Diagnoses Diagnosis Myalgia and myositis, unspecified- Primary Mylagia and myositis, unspecified Headache(784.0) Headache documented in this encounter Care Teams Aerospace Engineer Officer Armament Relationship Specialty Start Date End Date Jayesh Krueger MD [address] [place] [address] PCP - General Internal Medicine 12/19/16 documented as of this encounter
--- OUTSIDE RECORDS SUMMARY | 2025-04-24 17:44 | XMS_ITS | Encounter Summary ---
Author Organization [facility] Address [address] [facility] Attn: [place] [address] Care Team Providers Care Content Developer Name Role Phone Jayesh Krueger MD Primary Care Provider [phone] Encounter Details Date Type Department Care Team (Late st Contact Info) Description 02/27/2000 Outpatient Historical Thomas Dailey MD [address] [place] [address] Social History Tobacco Use Types Packs/Day Years Used Date Smoking Tobacco: Never Assessed Comments Unknown Sex and Gender Information Value Date Recorded Sex Assigned at Not on file Legal Sex Female 5:34 AM BIOMED TECH Gender Identity Not on file Sexual Orientation Not on file documented as of this encounter Plan of Treatment Not on file documented as of this encounter Visit Diagnoses Not on filedocumented in this encounter Care Teams Content Developer Relationship Specialty Start Date End Date Jayesh Krueger MD [address] [place] [address] PCP - General Internal Medicine 12/19/16 documented as of this encounter
--- OUTSIDE RECORDS SUMMARY | 2025-04-24 17:44 | XMS_ITS | Encounter Summary ---
Author Organization [facility] Address [address] [facility] Attn: Epic Prelude ADT [place] [address] Care Team Providers Care Assistant District Attorney Name Role Phone Jayesh Krueger MD Primary Care Provider [phone] Encounter Details Date Type Department Care Team (Late st Contact Info) Description 06/20/2000 Outpatient Historical Non-Staff, Physician NO ADDRESS ON FILE Social History Tobacco Use Types Packs/Day Years Used Date Smoking Tobacco: Never Assessed Comments Unknown Sex and Gender Information Value Date Recorded Sex Assigned at Not on file Legal Sex Female 5:34 AM TRIM DIE 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
--- OUTSIDE RECORDS SUMMARY | 2025-04-24 17:44 | XMS_ITS | Encounter Summary ---
Author Organization [facility] Address [address] [place] [address] Care Team Providers Care Gift Packer Name Role Phone Jayesh Krueger MD Primary Care Provider [phone] Encounter Details Date Type Department Care Team (Latest Contact Info) Description 11/11/2002 Outpatient Historical [facility] Thomas Dailey MD [address] [place] [address] LUMBAGO (Primary Dx) Social History Tobacco Use Types Packs/Day Years Used Date Smoking Tobacco: Never Assessed Comments Unknown Sex and Gender Information Value Date Recorded Sex Assigned at Not on file Legal Sex Female 5:34 AM BEHAVIORAL PSYCHOLOGIST Gender Identity Not on file Sexual Orientation Not on file documented as of this encounter Plan of Treatment Not on file documented as of this encounter Visit Diagnoses Diagnosis Lumbago- Primary documented in this encounter Care Teams Gift Packer Relationship Specialty Start Date End Date Jayesh Krueger MD [address] [place] [address] PCP - General Internal Medicine 12/19/16 documented as of this encounter
--- OUTSIDE RECORDS SUMMARY | 2025-04-24 17:44 | XMS_ITS | Encounter Summary ---
Author Organization [facility] Address [address] [facility] Attn: Epic Prelude ADT [place] [address] Care Team Providers Care Education Professor Name Role Phone Jayesh Krueger MD Primary Care Provider [phone] Encounter Details Date Type Department Care Team (Late st Contact Info) Description 02/06/2001 Outpatient Historical Sotero Ortiz MD NO ADDRESS ON FILE Social History Tobacco Use Types Packs/Day Years Used Date Smoking Tobacco: Never Assessed Comments Unknown Sex and Gender Information Value Date Recorded Sex Assigned at Not on file Legal Sex Female 5:34 AM 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
--- OUTSIDE RECORDS SUMMARY | 2025-04-24 17:44 | XMS_ITS | Encounter Summary ---
Author Organization [facility] Address [address] [facility] Attn: [place] [address] Care Team Providers Care Fisher Lampara Net Name Role Phone Jayesh Kruegre MD Primary Care Provider [phone] Encounter Details Date Type Department Care Team (Late st Contact Info) Description 04/13/2000 Inpatient Historical Thomas Dailey MD [address] 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
--- OUTSIDE RECORDS SUMMARY | 2025-04-24 17:45 | XMS_ITS | Encounter Summary ---
Author Organization [facility] Address [address] [place] [address] Care Team Providers Care Operations Support Professionals Name Role Phone Jayesh Krueger MD Primary Care Provider [phone] Encounter Details Date Type Department Care Team (Latest Contact Info) Description 07/05/2005 Outpatient Historical [facility] Imaging Services-[facility] [place] [address] [place] [address] Anthony Andrews, DPM [address] [place] [address] OTHER HAMMER TOE (Primary Dx) Social History Tobacco Use Types Packs/Day Years Used Date Smoking Tobacco: Never Assessed Comments Unknown Sex and Gender Information Value Date Recorded Sex Assigned at Not on file Legal Sex Female 5:34 AM PRESS READER Gender Identity Not on file Sexual Orientation Not on file documented as of this encounter Plan of Treatment Not on file documented as of this encounter Visit Diagnoses Diagnosis Other hammer toe (acquired)- Primary documented in this encounter Care Teams Operations Support Professionals Relationship Specialty Start Date End Date Jayesh Krueger MD [address] [place] [address] PCP - General Internal Medicine 12/19/16 documented as of this encounter
--- OUTSIDE RECORDS SUMMARY | 2025-04-24 17:45 | XMS_ITS | Encounter Summary ---
Author Organization [facility] Address [address] [place] [address] Care Team Providers Care Blind Teacher Name Role Phone Jayesh Krueger MD Primary Care Provider [phone] Encounter Details Date Type Department Care Team (Latest Contact Info) Description 03/20/2006 Outpatient Historical [facility] Endocrinology-[facility] [place] [address] [address] Brice Oconnell, [place] [address] 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
--- OUTSIDE RECORDS SUMMARY | 2025-04-24 17:45 | XMS_ITS | Encounter Summary ---
Author Organization [facility] Address [address] [place] [address] Care Team Providers Care Lapidary Apprentice Name Role Phone Jayesh Krueger MD Primary Care Provider [phone] Encounter Details Date Type Department Care Team (Latest Contact Info) Description 11/06/[address] [facility] Endocrinology-[facility] [place] [address] [place] [address] Chin Patel MD NO ADDRESS ON FILE DM w/o Complication Type II (CMS/HCC) (Primary Dx); Other and Unspecified Hyperlipidemia; Unspecified Essential Hypertension Social History Tobacco Use Types Packs/Day Years Used Date Smoking Tobacco: Never Assessed Comments Unknown Sex and Gender Information Value Date Recorded Sex Assigned at Not on file Legal Sex Female 5:34 AM HEALTHCARE ANALYST Gender Identity Not on file Sexual Orientation Not on file documented as of this encounter Plan of Treatment Not on file documented as of this encounter Visit Diagnoses Diagnosis Type II or unspecified type diabetes mellitus without mention of complication, not stated as uncontrolled- Primary Other and unspecified hyperlipidemia Unspecified essential hypertension documented in this encounter Care Teams Lapidary Apprentice Relationship Specialty Start Date End Date Jayesh Krueger MD [address] [place] [address] PCP - General Internal Medicine 12/19/16 documented as of this encounter
--- OUTSIDE RECORDS SUMMARY | 2025-04-24 17:45 | XMS_ITS | Encounter Summary ---
Author Organization [facility] Address [address] [place] [address] Care Team Providers Care Dry Folder Cloth Name Role Phone Jayesh Krueger MD Primary Care Provider [phone] Encounter Details Date Type Department Care Team (Latest Contact Info) Description 07/03/2006 Outpatient Historical [facility] Endocrinology-[facility] [place] [address] [facility] [address] [place] [address] Chin Patel MD NO ADDRESS ON FILE DM w/o Complication Type II, Uncontrolled (Primary Dx); Other and Unspecified Hyperlipidemia; Unspecified Essential Hypertension Social History Tobacco Use Types Packs/Day Years Used Date Smoking Tobacco: Never Assessed Comments Unknown Sex and Gender Information Value Date Recorded Sex Assigned at Not on file Legal Sex Female 5:34 AM INSTALLATION HELPER Gender Identity Not on file Sexual Orientation Not on file documented as of this encounter Plan of Treatment Not on file documented as of this encounter Visit Diagnoses Diagnosis Type II or unspecified type diabetes mellitus without mention of complication, uncontrolled- Primary Other and unspecified hyperlipidemia Unspecified essential hypertension documented in this encounter Care Teams Dry Folder Cloth Relationship Specialty Start Date End Date Jayesh Krueger MD [address] [place] [address] PCP - General Internal Medicine 12/19/16 documented as of this encounter
--- OUTSIDE RECORDS SUMMARY | 2025-04-24 17:45 | XMS_ITS | Patient Health Record ---
Author Organization [facility] Address [address] [place] [address] Care Team Providers Care Teacher Early Childhood Development Name Role Phone Carter Yusuf Primary Care Provider Sam Tomlinson [phone] Allergies Allergen (clinical drug ingredient) Drug/Non Drug [...] Never Smoker NA - NA Social History Depression Screening Social Info Question Answer Notes PHQ-9 Little interest or p juan jose in doing things More than half the days Feeling down, depressed, or hopeless More than h antoni the days Trouble falling or staying asleep, or sleeping t oo much Several days Feeling tired or having little energy Several da ys Poor appetite or overeating Several days Feeling bad about yourself, or that you are a failure, or have let yourself or your family down Several days Trouble concentrating on thi ngs, such as reading the newspaper or watching television Not at all Moving or speaking so slowly that other people could have noticed. Or the opposite ? being so fidgety or restless that you have been moving around a lot more than usual Not at all Thoughts that you would be b phyllis off , or of hurting yourself in some way Not at all Total Score 8 Interpretation Mild Depression Drugs/Alcohol: Social Info Question Answer Notes Alcohol Screen (Audit-C) Did you have a drink containing alcohol in the past year? No Points 0 Interpretation Negative Tobacco Use: Social Info Question Answer Notes xTobacco Use/Smoking Are you a nonsmoker Additional Details Category Social Info Options Details Miscellaneous: Marital status: Occupation: Retired zzMigrated Social History Migrated Social History Smoking Status:Never smoked tobacco (finding) Problems Problem Type SNOMED Code ICD Code Onset Dates Problem Status W/U Status Risk Notes Problem Dyspareunia (59544633) Dyspareunia (625.0) 2004 Problem resolved confirmed [facility] [id number] Adjustment disorder with mixed disturbance of emotions AND conduct (40730432) Adjustment disorder with mixed disturbance of emotions and conduct (F43.25) Active confirmed Problem Atherosclerotic heart disease of [place] coronary artery without angina pectoris (366782201913730) Atherosclerotic heart disease of [place] coronary artery without angina pectoris (I25.10) Active confirmed [id number] med Description:Cor onary arteriosclerosi s Problem Gastro-esophageal reflux disease without esophagitis (591437848) Gastro-esophage al reflux disease without esophagitis (K21.9) Active confirmed [id number] med Description:Gas troesophageal reflux disease Problem Chest pain (83782541) Chest pain, unspecified (R07.9) Active confirmed [id number] med Description:Cherise st pain Problem Dysphagia (11693235) Dysphagia, unspecified (R13.10) Active confirmed Problem Anxiety (58754914) Anxiety (F41.9) Active confirmed Problem Bipolar 1 disorder (839831938) Bipolar 1 disorder (F31.9) Active confirmed Problem Posttraumatic stress disorder (44646302) Post traumatic stress disorder (PTSD) (F43.10) Active confirmed Problem Insomnia (642591420) Insomnia (G47.00) Active confirmed Problem Dysphagia (70991257) Dysphagia, unspecified type (R13.10) Active confirmed Problem Psychosis (18473748) Psychosis (F29) Active confirmed Problem Steatorrhea (98991028) Steatorrhea (K90.9) Active confirmed Problem History of adenomatous polyp of colon (037163619) History of adenomatous polyp of colon (Z86.010) Active confirmed Problem Hypercholesterole kedar (28557178) Hypercholestero lemia (272.0) 2004 Problem resolved confirmed [id number] Problem Late effects of cerebrovascular disease (250572233) Old CVA (438.9) 2004 Problem resolved confirmed [id number]- Problem Acquired hypothyroidism (841561495) Acquired hypothyroidism (244.8) 2004 Problem resolved confirmed [id number] Problem Diabetes mellitus type 2 (disorder) (56056298) Type 2 diabetes (250.00) 2004 Problem resolved confirmed [id number]- Problem History of adenomatous polyp of colon (195868423) Hx of adenomatous polyp of colon (Z86.010) Active confirmed Problem Atrophic gastritis (09297384) Mild chronic gastritis (K29.50) Active confirmed Problem Gastroesophageal reflux disease (747920210) Gastroesophagea l reflux disease, unspecified whether esophagitis present (K21.9) Active confirmed Plan Of Treatment Pending Test Test Name Order Date Culture Stool 15179, 15890, 12865, 74359 , 01112 08/15/2021 Giardia/Cryptosporidium Screen 29073, 87 329 08/15/2021 Fecal Leukocyte 38972 08/15/2021 CDiff PCR Rfx C diff Toxin NAP/EPI 93633 , 55794 08/15/2021 Calprotectin Fecal 54749 08/15/2021 Pancreatic Elastase Fecal--45621 022 Diagnostic Colonoscopy-77518 08/15/2021 EGD, Upper GI Diagnostic-69882 2 Insurance Providers Payer Name Payer Address Payer Phone Subscriber Number Group Number Insured Name Patient Relationship to Insured Coverage Start Date Coverage End Date [place] [address] [place] [phone] [id number] Kaylee Ch Self - patient is the insured [facility] [address] [address] [place] [address] [id number] Kaylee Ch Self - patient is the insured Medical (General) History Medical History History ICD Code Cerebrovascular Accident: x 1; Anxiety Arthritis Bilateral cataracts Depression Diabetes mellitus Fibromyalgia Gastroesophageal reflux disease Hyperlipidemia Hypothyroidism Polyp of colon Steatosis of liver bipolar Surgical History Surgery Date(Month/Year) right shoulder replacement appendectomy cholecystectomy hysterectomy total lower back surgery neck titanium plate and screws endometrial surgery left knee arthroscopy left broken foot right broken hand Hospitalization History Reason Date(Month/Year) see surgery list heart attack stroke
[2025-04-24 18:19] VITALS: BP 135/67; PULSE 73; RESP 18; TEMP 36.7; O2SAT 93
[2025-04-24 18:32] LABS: Hematocrit 36.4 % (36-47); Hemoglobin 11.60 g/dL (11.27-16.99); Mean Corpuscular HGB Conc 31.9 g/dL (30-55); Mean Corpuscular Hemoglobin 30.1 pg (27-33); Mean Corpuscular Volume 94.5 fl (85-98); Nucleated Red Blood Cells % 0 %; Platelet Count 342 10^3/cmm (157-399); Red Blood Count 3.85 10^6/uL (3.85-5.65); White Blood Count 11.42 10^3/uL (3.29-11.43)
[2025-04-24 18:56] LABS: Alanine Aminotransferase 22 U/L (0-33); Albumin Level 3.8 g/dL (3.5-5.2); Alkaline Phosphatase 115 U/L (35-105); Anion Gap 14.3 (5-19); Aspartate Amino Transferase 11 U/L (0-32); Blood Urea Nitrogen 22 mg/dL (8-23); Calcium 9.2 mg/dL (8.5-10.5); Carbon Dioxide 29 mmol/L (22-29); Chloride 95 mmol/L (98-107); Creatinine Clr Calc Pharmacy 70.4897; Globulin 3.4 g/dL (1.3-4.6); Glucose 272 mg/dL (65-115); Osmolality Calculated 291 mOsm/kg (285-295); Potassium 4.3 mmol/L (3.5-5.1); Sodium 134 mmol/L (136-145); Total Protein 7.2 g/dL (6.6-8.7)
--- NOTE | 2025-04-24 19:47 | XRR_ITS ---
PROCEDURE INFORMATION: Exam: XR Left Foot Exam date and time: 04/24/2025 7:48 PM Age: 69 years old Clinical indication: Cellulitis; Toes; Left; Prior surgery; Surgery date: 6+ months; Surgery type: Great toe amputation, pin 5th metatarsal TECHNIQUE: Imaging protocol: Radiologic exam of the left foot. Views: 3 or more views. 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 7 mm bone island distal 1st metatarsal diaphysis. Fixation screw proximal 5th metatarsal bone. Hardware intact. No acute fracture or subluxation. No cortical irregularities to suggest osteomyelitis. Soft tissues: Moderate soft tissue swelling. XR/XR foot LT min 3V* 30425 IMPRESSION: 1. Status post great toe distal and middle phalanx amputation. 7 mm bone island distal 1st metatarsal diaphysis. 2. Fixation screw proximal 5th metatarsal bone. Hardware intact. 3. No acute fracture or subluxation. No cortical irregularities to suggest osteomyelitis. 4. Moderate soft tissue swelling.
--- NOTE | 2025-04-24 19:48 | W.ED.EXTPRO ---
HPI - Extremity Problem General: Chief complaint: Extremity Injury, Lower Stated complaint: infected toe Time Seen by Provider: 04/24/25 19:36 Source: patient Mode of arrival: ambulatory Limitations: no limitations History of Present Illness: 69-year-old female states she has noticed redness to her left second toe over the last few days. Has a history of amputation of the great toe that foot 4 months ago. States she has had some pain she rates a 4 out of 10 she denies any fevers denies any worse improving factors Related Data Home Medications ?Medication ?Instructions ?Recorded ?Confirmed ascorbic acid 7.5 mg-vit E 7.5 1 tab PO DAILY@1000 11/12/20 04/10/25 unit-biotin 1,250 mcg chewable tablet (Hair,Skin,Nails with Biotin) multivitamin 1 tab PO DAILY@1000 11/12/20 04/10/25 cyanocobalamin (vitamin B-12) 1,000 mcg PO DAILY 01/03/23 04/10/25 1,000 mcg tablet (Vitamin B-12) gabapentin 100 mg capsule 100 mg PO BID 07/18/24 04/10/25 potassium chloride 20 mEq 20 meq PO .DAILY@10AM 07/18/24 04/10/25 tablet,extended release lamotrigine 200 mg tablet 200 mg PO BID 12/30/24 04/10/25 duloxetine 60 mg capsule,delayed 120 mg PO QAM 01/26/25 04/10/25 release fluoxetine 20 mg capsule 20 mg PO QAM 01/26/25 04/10/25 levothyroxine 200 mcg tablet 200 mcg PO .DAILY@10AM 01/26/25 04/10/25 omega 3-ykj-ywc-fish oil 1,200 mg 1 cap PO DAILY 01/30/25 04/10/25 (144 mg-216 mg) capsule (Fish Oil) diazepam 10 mg tablet 10 mg PO BID PRN Anxiety 04/10/25 04/10/25 Previous Rx's ?Medication ?Instructions ?Recorded insulin syringe-needle U-100 1 mL #100 ea 09/06/22 28 gauge x 1/2 (BD Insulin Syringe) Diabetic shoes #1 ea 04/11/23 blood-glucose meter #1 ea 06/12/23 blood sugar diagnostic (Blood #200 ea 06/15/23 Glucose Test strips) blood-glucose meter (Accu-Chek #1 ea 06/27/23 Guide Glucose Meter) blood sugar diagnostic (Accu-Chek #100 ea 07/26/23 Guide test strips) lancets (Accu-Chek Softclix #200 ea 09/14/23 Lancets) Diabetic Shoes with Inserts #1 ea 12/11/24 insulin syringe-needle U-100 1 mL #100 ea 01/02/25 31 gauge x 5/16 (TRUEplus Insulin) cam boot to right #1 ea 01/05/25 semaglutide 0.25 mg or 0.5 mg (2 0.5 mg (0.736 mL) SUBCUT .weekly 01/27/25 mg/3 mL) subcutaneous pen injector #3 mL (Ozempic) amiodarone 200 mg tablet (Pacerone) See Rx Instructions .Route 02/06/25 .COMPLEX #60 tabs amlodipine 10 mg tablet 10 mg PO DAILY #30 tabs 02/06/25 aspirin 81 mg tablet,delayed 81 mg PO DAILY #30 tabs 02/06/25 release glimepiride 4 mg tablet 2 mg (1/2 x 4 mg) PO BID #30 tabs 02/06/25 olanzapine 5 mg tablet 2.5 mg (1/2 x 5 mg) PO BID #30 tabs 02/06/25 quetiapine 25 mg tablet 25 mg PO BEDTIME #30 tabs 02/06/25 sennosides 8.6 mg-docusate sodium 1 tab PO BID PRN Constipation #30 02/06/25 50 mg tablet (Stool tabs Softener-Laxative) ciprofloxacin HCl 500 mg tablet 500 mg PO BID #14 tabs 04/24/25 (Cipro) clindamycin HCl 300 mg capsule 300 mg PO Q8H 7 days #21 caps 04/24/25 (Cleocin HCl) hydrocodone 5 mg-acetaminophen 325 1 tab PO Q6H PRN pain #14 tabs 04/24/25 mg tablet Allergies Allergy/AdvReac Type Severity Reaction Status Date / Time azithromycin (From Zithromax) Allergy rash Verified 03/04/25 14:22 cetirizine (From Zyrtec) Allergy rash Verified 03/04/25 14:22 lisinopril (From Zestril) Allergy ALGY-Swell Verified 03/04/25 14:22 Lip/Tongue/Throat metformin AdvReac Intermediate diarrhea Verified 03/04/25 14:22 topiramate (From Topamax) AdvReac Intermediate diarrhea Verified 03/04/25 14:22 Review of Systems Skin/Breast: Reports: erythema PFSH ED PFSH: Medical History 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 Left shoulder pain Hypothyroid Hyperlipidemia Hypertension Diabetes mellitus Suspected COVID-19 virus infection Hypothyroidism Chronic diarrhea Tension headache, chronic CVA (cerebral vascular accident) TIA (transient ischemic attack) History of aphasia Hx of kidney disease Hx of type 2 diabetes mellitus History of anemia History of GI bleed History of hypothyroidism Hx of primary hypertension History of bipolar disorder History of anxiety History of depression History of posttraumatic stress disorder (PTSD) Surgical History Hx of appendectomy History of back surgery Hx of cholecystectomy Hx of hysterectomy Hx of neck surgery Social History Smoking and tobacco/nicotine status: never used tobacco/nicotine Alcohol intake: current Alcohol intake frequency: holidays/special occasions only Substance/Drug Use: never Physical Exam Const: COMMON NORMALS: no acute distress, patient oriented x3 and healthy appearing HENMT: COMMON NORMALS: normocephalic and atraumatic HEAD & SCALP: normocephalic and atraumatic Eye: COMMON NORMALS: conjunctivae normal CONJUNCTIVA: Yes conjunctivae normal Neck/C-Spine: COMMON NORMALS: full ROM and supple Chest: COMMONS NORMALS: normal inspection of the chest Resp: COMMON NORMALS: normal respiratory effort Cardio: COMMON NORMALS: regular rate, regular rhythm and No murmurs present (Cardio) RATE: regular rate RHYTHM: regular rhythm Extremity: COMMON NORMALS: full ROM Neuro: COMMON NORMALS: patient oriented x3, moves all extremities and no focal motor deficits Psych: COMMON NORMALS: mental status grossly normal, Normal thought process present and cooperative THOUGHT PROCESS: Normal thought process present Skin: NARRATIVE SKIN EXAM: Erythema noted to left second toe no open wounds no drainage Course Vital Signs: Vital signs: Vital Signs Temperature 98.0 F 04/24/25 18:19 Pulse Rate 73 04/24/25 18:19 Respiratory Rate 18 04/24/25 18:19 Blood Pressure 135/67 04/24/25 18:19 Pulse Oximetry 93 04/24/25 18:19 Oxygen Delivery Me thod Room Air 04/24/25 18:19 MDM - Extremity (Nontraumatic) Medical Decision Making Patient presents for cellulitis to her left great toe. Differential included osteomyelitis x-ray shows no signs of gas formation her white count and inflammatory markers here are normal. I did review her x-ray myself which showed no acute abnormality. I did speak to fuel truck driver Dr. Strange recommended to place patient on Cipro and clindamycin he is going to see her in the office on Sunday I did inform her of this and her findings she is return if worsening and follow-up with him as scheduled she understands agrees to plan. Medical Records I reviewed the patient's medical records. Lab Data I reviewed the patient's lab results. 04/24/25 18:18 04/24/25 18:18 Laboratory Results WBC 11.42 10^3/uL (3.29-11.43) 04/24/25 18:18 RBC 3.85 10^6/uL (3.85-5.65) 04/24/25 18:18 Hgb 11.60 g/dL (11.27-16.99) 04/24/25 18:18 Hct 36.4 % (36-47) 04/24/25 18:18 MCV 94.5 fl (85-98) 04/24/25 18:18 MCH 30.1 pg (27-33) 04/24/25 18:18 MCHC 31.9 g/dL (30-55) 04/24/25 18:18 RDW 14.6 % (12.1-15.1) 04/24/25 18:18 Plt Count 342 10^3/cmm (157-399) 04/24/25 18:18 MPV 9.6 fL (7.4-10.4) 04/24/25 18:18 Neut % (Auto) 66.1 % 04/24/25 18:18 Lymph % (Auto) 18.6 % 04/24/25 18:18 Cuming % (Auto) 9.5 % 04/24/25 18:18 Eos % (Auto) 4.2 % 04/24/25 18:18 Baso % (Auto) 0.5 % 04/24/25 18:18 Neut # (Auto) 7.55 10^3/uL (1.8-7.7) 04/24/25 18:18 Lymph # (Auto) 2.1 10^3/uL (0.8-4.8) 04/24/25 18:18 Cuming # (Auto) 1.1 10^3/uL (0.2-0.9) H 04/24/25 18:18 Eos # (Auto) 0.5 10^3/uL (0.0-0.8) 04/24/25 18:18 Baso # (Auto) 0.1 10^3/uL (0.0-0.1) 04/24/25 18:18 Nucleated RBC % (auto) 0 % 04/24/25 18:18 Nucleated RBCs # 0.0 /100WBC 04/24/25 18:18 ESR 29 mm/hr (0-15) H 04/24/25 18:18 Sodium 134 mmol/L (136-145) L 04/24/25 18:18 Potassium 4.3 mmol/L (3.5-5.1) 04/24/25 18:18 Chloride 95 mmol/L (98-107) L 04/24/25 18:18 Carbon Dioxide 29 mmol/L (22-29) 04/24/25 18:18 Anion Gap 14.3 (5-19) 04/24/25 18:18 BUN 22 mg/dL (8-23) 04/24/25 18:18 Creatinine 0.8 mg/dL (0.5-0.9) 04/24/25 18:18 GFR Calculation 70.9 mL/min (90-130) L 04/24/25 18:18 Glucose 272 mg/dL (65-115) H 04/24/25 18:18 Calculated Osmolality 291 mOsm/kg (285-295) 04/24/25 18:18 Calcium 9.2 mg/dL (8.5-10.5) 04/24/25 18:18 Total Bilirubin 0.3 mg/dL (0.15-1.2) 04/24/25 18:18 AST 11 U/L (0-32) 04/24/25 18:18 ALT 22 U/L (0-33) 04/24/25 18:18 Alkaline Phosphatase 115 U/L (35-105) H 04/24/25 18:18 C-Reactive Protein 19.2 mg/L (0.0-4.9) H 04/24/25 18:18 Total Protein 7.2 g/dL (6.6-8.7) 04/24/25 18:18 Albumin 3.8 g/dL (3.5-5.2) 04/24/25 18:18 Globulin 3.4 g/dL (1.3-4.6) 04/24/25 18:18 XR interpretation done by ED provider, pending radiology final review ED provider radiology interpretation(s): xr foot: no acute abnormality Discharge Plan Discharge Patient Disposition: Home Clinical Impression: Cellulitis of second toe, left Condition: Stable Prescriptions: New hydrocodone-acetaminophen 5-325 mg tablet 1 tab PO Q6H PRN (Reason: pain) Qty: 14 0RF ciprofloxacin HCl [Cipro] 500 mg tablet 500 mg PO BID Qty: 14 0RF clindamycin HCl [Cleocin HCl] 300 mg capsule 300 mg PO Q8H 7 Days Qty: 21 0RF No Action (DME) cam boot to right See Rx Instructions .Route .MEDSUPPLY Qty: 1 0RF Rx Instructions: As directed lamotrigine 200 mg tablet 200 mg PO BID (DME) Diabetic shoes See Rx Instructions .Route .MEDSUPPLY Qty: 1 0RF Rx Instructions: Heel lift and insoles. Last HgbA1C 5.7 on 02/01. (DME) Diabetic Shoes with Inserts See Rx Instructions .Route .MEDSUPPLY Qty: 1 0RF Rx Instructions: As directed (DME) insulin syringe-needle U-100 [BD Insulin Syringe] 1 mL 28 gauge x 1/2 syringe See Rx Instructions .Route Qty: 100 11RF Rx Instructions: As directed (DME) blood-glucose meter Misc See Rx Instructions .MEDSUPPLY Qty: 1 0RF Rx Instructions: Check TID (DME) Blood Glucose Test Strip See Rx Instructions .MEDSUPPLY Qty: 200 12RF Rx Instructions: Use with glucometer to check blood sugar three times a day (DME) blood-glucose meter [Accu-Chek Guide Glucose Meter] [facility] [place] See Rx Instructions .Route Qty: 1 0RF Rx Instructions: As directed (DME) Accu-Chek Guide test strips Strip See Rx Instructions .Route Qty: 100 11RF Rx Instructions: check TID (DME) lancets [Accu-Chek Softclix Lancets] [facility] [place] See Rx Instructions .Route Qty: 200 11RF Rx Instructions: use as directed three times a day (DME) insulin syringe-needle U-100 [TRUEplus Insulin] 1 mL 31 gauge x 5/16 syringe See Rx Instructions .ROUTE .COMPLEX Qty: 100 3RF Dose Instruction: TO USE WITH LANTUS Rx Instructions: TO USE WITH LANTUS Ozempic 0.25 mg or 0.5 mg (2 mg/3 mL) pen injector 0.5 mg SUBCUT .weekly Qty: 3 11RF Rx Instructions: Sunday multivitamin Tablet 1 tab PO DAILY@1000 Hair, Skin, Nails with Biotin 7.5-7.5-1,250 mg-unit-mcg Tablet,Chewable 1 tab PO DAILY@1000 cyanocobalamin (vitamin B-12) [Vitamin B-12] 1,000 mcg Tablet 1,000 mcg PO DAILY diazepam 10 mg tablet 10 mg PO BID PRN (Reason: Anxiety) gabapentin 100 mg capsule 100 mg PO BID potassium chloride 20 mEq tablet extended release 20 meq PO .DAILY@10AM fluoxetine 20 mg capsule 20 mg PO QAM duloxetine 60 mg capsule,delayed release(DR/EC) 120 mg PO QAM levothyroxine 200 mcg tablet 200 mcg PO .DAILY@10AM omega 9-pxg-hud-fish oil [Fish Oil] 1,200 (144-216) mg Capsule 1 cap PO DAILY amiodarone [Pacerone] 200 mg Tablet See Rx Instructions .ROUTE .COMPLEX Qty: 60 0RF Rx Instructions: Take 400 mg by mouth daily for 7 days then reduce dose to 200 mg daily. aspirin 81 mg Tablet,Delayed Release (Dr/Ec) 81 mg PO DAILY Qty: 30 0RF glimepiride 4 mg tablet 2 mg PO BID Qty: 30 0RF quetiapine 25 mg Tablet 25 mg PO BEDTIME Qty: 30 0RF sennosides-docusate sodium [Stool Softener-Laxative] 8.6-50 mg Tablet 1 tab PO BID PRN (Reason: Constipation) Qty: 30 0RF olanzapine 5 mg Tablet 2.5 mg PO BID Qty: 30 0RF amlodipine 10 mg tablet 10 mg PO DAILY Qty: 30 0RF Discharge Orders: Discharge ED (Routine); Ordered 04/24/25 Ordered By: Antelmo Ornelas Referrals: Colton Strange DPM [Physician, Podiatry] - 4-7 days Carter Yusuf MD [Primary Care Provider, Family Practice] Discharge Diet: Advance as tolerated Discharge Activity: Resume usual activity Patient Instructions: Cellulitis (ED) Print Language: Arabic Coding Level of Care Code ED [facility] [employer] for Jaret Deal
[2025-04-24] MEDS: HYDROcodone-acetaminophen 5-325 mg Tablet 1 TAB PO (20:03)
--- NOTE | 2025-04-27 08:02 | DCPLANNER ---
messaged podiatry for er f/u
== END 2025-04-24 20:17 | disposition home or self-care (01) ==
PROVIDERS: Emergency Provider Emergency Medicine; PCP Family Medicine
DX: L03.032 Cellulitis of left toe (principal); E78.5 Hyperlipidemia, unspecified; Z86.73 Personal history of transient ischemic attack (TIA), and cerebral infarction without residual deficits; E11.9 Type 2 diabetes mellitus without complications; I10 Essential (primary) hypertension; Z79.82 Long term (current) use of aspirin
CPT/HCPCS: 36415; 73630; 80053; 85025; 85651; 86140; 99284; J9999

== ENCOUNTER 2025-04-27 08:05 | Emergency (ER) | payer MEDICARE, OTHER, MEDICAID, SELFPAY ==
--- NOTE | 2025-04-27 08:07 | XRR_ITS ---
PROCEDURE INFORMATION: Exam: XR Chest Exam date and time: 04/27/2025 9:15 AM Age: 69 years old Clinical indication: Shortness of breath; Prior surgery; Surgery date: 6+ months; Surgery type: C. Spine shoulder TECHNIQUE: Imaging protocol: Radiologic exam of the chest. Views: 1 view. COMPARISON: CR XR chest 1V portable [id number] 04/09/2025 2:50 PM FINDINGS: Lungs: Mild interstitial prominence in the lower lung zones which could represent a component of mild chronic interstitial lung disease. The pulmonary vasculature does not appear engorged. No consolidating infiltrates. Pleural spaces: Unremarkable. No pleural effusion. No pneumothorax. Heart/Mediastinum: Unremarkable. No cardiomegaly. Bones/joints: Status post right shoulder arthroplasty. Status post surgical fusion of the lower cervical spine. XR/XR chest 1V portable [id number] IMPRESSION: Mild interstitial prominence in the lower lung zones without pulmonary vascular congestion. Consider mild chronic interstitial lung disease
--- NOTE | 2025-04-27 08:08 | ECG_ITS ---
[employer] SECU4 Test Date: 2025-04-27 Pat Name: Kaylee Ch Department: Room: Gender: Female Curriculum And Assessment Coordinator: : 1955 Requested By: Deyanira Barbosa Order Number: [id number] Yasmine MD: Brarie Urbina M.D. Measurements Intervals [place] Rate: 66 P: 60 [place]: 177 QRS: 85 QRSD: 98 T: 52 QT: 403 QTc: 425 Interpretive Statements SINUS RHYTHM POSSIBLE LEFT ATRIAL ENLARGEMENT [-0.1mV P-WAVE IN V1/V2] Compared to ECG 04/09/2025 14:31:59 No significant changes Electronically Signed On 04-28-2025 19:23:36 CDT by Barrie Urbina M.D. [email or web address] [id number]
--- OUTSIDE RECORDS SUMMARY | 2025-04-27 08:31 | XMS_ITS | Encounter Summary ---
Author Organization [facility] Address [address] [place] [address] Care Team Providers Care Radio Aerial Installer Name Role Phone Jayesh Krueger MD Primary Care Provider [phone] Encounter Details Date Type Department Care Team (Latest Contact Info) Description 12/10/[address] [facility] Imaging Services [address] 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
--- OUTSIDE RECORDS SUMMARY | 2025-04-27 08:31 | XMS_ITS | Encounter Summary ---
Author Organization [facility] Address [address] [place] [address] Care Team Providers Care Skilled Nursing Facility Counselor Name Role Phone Jayesh Krueger MD Primary Care Provider [phone] Encounter Details Date Type Department Care Team (Late st Contact Info) Description 09/06/2003 Emergency [facility] Emergency Department [address] 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
--- OUTSIDE RECORDS SUMMARY | 2025-04-27 08:31 | XMS_ITS | Encounter Summary ---
Author Organization [facility] Address [address] [place] [address] Care Team Providers Care Help Aid Name Role Phone Jayesh Krueger MD Primary Care Provider [phone] Encounter Details Date Type Department Care Team (Latest Contact Info) Description 12/31/2003 Outpatient Historical [facility] Endocrinology-[facility] [address] [place] [address] Chin Patel MD NO ADDRESS ON FILE DIABETES UNCOMPL ADULT-TYPE II (CMS/[facility]) (Primary Dx); HYPERLIPIDEMIA NEC/NOS; HYPERTENSION NOS; HYPOTHYROIDISM NOS Social History Tobacco Use Types Packs/Day Years Used Date Smoking Tobacco: Never Assessed Comments Unknown Sex and Gender Information Value Date Recorded Sex Assigned at Not on file Legal Sex Female 5:34 AM DIETARY COOK Gender Identity Not on file Sexual Orientation Not on file documented as of this encounter Plan of Treatment Not on file documented as of this encounter Visit Diagnoses Diagnosis Type II or unspecified type diabetes mellitus without mention of complication, not stated as uncontrolled- Primary Other and unspecified hyperlipidemia Unspecified essential hypertension Unspecified hypothyroidism documented in this encounter Care Teams Help Aid Relationship Specialty Start Date End Date Jayesh Krueger MD [address] [place] [address] PCP - General Internal Medicine 12/19/16 documented as of this encounter
--- OUTSIDE RECORDS SUMMARY | 2025-04-27 08:31 | XMS_ITS | Encounter Summary ---
Author Organization [facility] Address [address] [place] [address] Care Team Providers Care Professor Of Engineering Name Role Phone Jayesh Krueger MD Primary Care Provider [phone] Encounter Details Date Type Department Care Team (Latest Contact Info) Description 11/04/2004 Outpatient Historical [facility] Endocrinology-[facility] [address] [place] [address] Chin Patel MD NO ADDRESS ON FILE DIABETES MELLITUS TYPE II-UNCOMPL (CMS/HCC) (Primary Dx); HYPERLIPIDEMIA NEC/NOS; THYROTOX NOS NO CRISIS; HYPOTHYROIDISM NOS Social History Tobacco Use Types Packs/Day Years Used Date Smoking Tobacco: Never Assessed Comments Unknown Sex and Gender Information Value Date Recorded Sex Assigned at Not on file Legal Sex Female 5:34 AM APPLIQUE SEWER Gender Identity Not on file Sexual [...] hypothyroidism documented in this encounter Care Teams Professor Of Engineering Relationship Specialty Start Date End Date Jayesh Krueger MD [address] [place] [address] PCP - General Internal Medicine 12/19/16 documented as of this encounter
--- OUTSIDE RECORDS SUMMARY | 2025-04-27 08:31 | XMS_ITS | Encounter Summary ---
Author Organization [facility] Address [address] [place] [address] Care Team Providers Care Auto Damage Trainee Name Role Phone Jayesh Krueger MD Primary Care Provider [phone] Encounter Details Date Type Department Care Team (Latest Contact Info) Description 05/08/2005 Outpatient Historical [facility] Endocrinology-[facility] [address] [place] [address] Chin Patel MD NO ADDRESS ON FILE DIABETES MELLITUS TYPE II-UNCOMPL (CMS/HCC) (Primary Dx); HYPERLIPIDEMIA NEC/NOS; HYPERTENSION NOS Social History Tobacco Use Types Packs/Day Years Used Date Smoking Tobacco: Never Assessed Comments Unknown Sex and Gender Information Value Date Recorded Sex Assigned at Not on file Legal Sex Female 5:34 AM CHEMICAL ETCH OPERATOR Gender Identity Not on file Sexual Orientation Not on file documented as of this encounter Plan of Treatment Not on file documented as of this encounter Visit Diagnoses Diagnosis Type II or unspecified type diabetes mellitus without mention of complication, not stated as uncontrolled- Primary Other and unspecified hyperlipidemia Unspecified essential hypertension documented in this encounter Care Teams Auto Damage Trainee Relationship Specialty Start Date End Date Jayesh Krueger MD [address] [place] [address] PCP - General Internal Medicine 12/19/16 documented as of this encounter
--- OUTSIDE RECORDS SUMMARY | 2025-04-27 08:31 | XMS_ITS | Encounter Summary ---
Author Organization [facility] Address [address] [place] [address] Care Team Providers Care Park Manager Name Role Phone Jayesh Krueger MD Primary Care Provider [phone] Encounter Details Date Type Department Care Team (Latest Contact Info) Description 05/03/2004 Outpatient Historical [facility] Endocrinology-[facility] [address] [place] [address] Chin Patel MD NO ADDRESS ON FILE DIABETES MELLITUS TYPE II-UNCOMPL (CMS/HCC) (Primary Dx); HYPERLIPIDEMIA NEC/NOS; HYPERTENSION NOS; HYPOTHYROIDISM NOS Social History Tobacco Use Types Packs/Day Years Used Date Smoking Tobacco: Never Assessed Comments Unknown Sex and Gender Information Value Date Recorded Sex Assigned at Not on file Legal Sex Female 5:34 AM EXPLOSIVE OPERATOR Gender Identity Not on file Sexual Orientation Not on file documented as of this encounter Plan of Treatment Not on file documented as of this encounter Visit Diagnoses Diagnosis Type II or unspecified type diabetes mellitus without mention of complication, not stated as uncontrolled- Primary Other and unspecified hyperlipidemia Unspecified essential hypertension Unspecified hypothyroidism documented in this encounter Care Teams Park Manager Relationship Specialty Start Date End Date Jayesh Krueger MD [address] [place] [address] PCP - General Internal Medicine 12/19/16 documented as of this encounter
--- OUTSIDE RECORDS SUMMARY | 2025-04-27 08:31 | XMS_ITS | Encounter Summary ---
Author Organization [facility] Address [address] [place] [address] Care Team Providers Care Care Process Manager Name Role Phone Jayesh Krueger MD Primary Care Provider [phone] Encounter Details Date Type Department Care Team (Latest Contact Info) Description 07/05/2005 Outpatient [facility] Podiatry-Rajesh Cleary [place] [address] [place] [address] Anthony Andrews, DPM [address] [place] [address] OTHER HAMMER TOE (Primary Dx); PERIPH VASCULAR DIS NOS; DIABETES TYPE II W NEURO MANIFESTATIONS (CMS/HCC) Social History Tobacco Use Types Packs/Day Years Used Date Smoking Tobacco: Never Assessed Comments Unknown Sex and Gender Information Value Date Recorded Sex Assigned at Not on file Legal Sex Female 5:34 AM DINING CAR WAITER/WAITRESS Gender Identity Not on file Sexual Orientation [...] uncontrolled documented in this encounter Care Teams Care Process Manager Relationship Specialty Start Date End Date Jayesh Krueger MD [address] [place] [address] PCP - General Internal Medicine 12/19/16 documented as of this encounter
--- OUTSIDE RECORDS SUMMARY | 2025-04-27 08:32 | XMS_ITS | Encounter Summary ---
Author Organization [facility] Address [address] [place] [address] Care Team Providers Care Hog Dropper Name Role Phone Jayesh Krueger MD Primary Care Provider [phone] Encounter Details Date Type Department Care Team (Late st Contact Info) Description 01/05/2003 Outpatient Historical [facility] Thomas Dailey MD [address] [place] [address] LUMBAGO (Primary Dx) Social History Tobacco Use Types Packs/Day Years Used Date Smoking Tobacco: Never Assessed Comments Unknown Sex and Gender Information Value Date Recorded Sex Assigned at Not on file Legal Sex Female 5:34 AM CONDITIONING ROOM WORKER Gender Identity Not on file Sexual Orientation Not on file documented as of this encounter Plan of Treatment Not on file documented as of this encounter Visit Diagnoses Diagnosis Lumbago- Primary documented in this encounter Care Teams Hog Dropper Relationship Specialty Start Date End Date Jayesh Krueger MD [address] [place] [address] PCP - General Internal Medicine 12/19/16 documented as of this encounter
--- OUTSIDE RECORDS SUMMARY | 2025-04-27 08:32 | XMS_ITS | Encounter Summary ---
Author Organization [facility] Address [address] [place] [address] Care Team Providers Care Taper/Finisher Name Role Phone Jayesh Krueger MD Primary Care Provider [phone] Encounter Details Date Type Department Care Team (Latest Contact Info) Description 02/17/[address] [facility] Imaging Services [address] 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
--- OUTSIDE RECORDS SUMMARY | 2025-04-27 08:32 | XMS_ITS | Encounter Summary ---
Author Organization [facility] Address [address] [place] [address] Care Team Providers Care Hat Finishing Materials Preparer Name Role Phone Jayesh Krueger MD Primary Care Provider Encounter Details Date Type Department Care Team (Latest Contact Info) Description 11/11/2002 Outpatient Historical [facility] RADIOLOGY NEUROP Thomas Dailey MD [address] [place] [address] LUMBAGO (Primary Dx) Social History Tobacco Use Types Packs/Day Years Used Date Smoking Tobacco: Never Assessed Comments Unknown Sex and Gender Information Value Date Recorded Sex Assigned at Not on file Legal Sex Female 5:34 AM TABLET COATER Gender Identity Not on file Sexual Orientation Not on file documented as of this encounter Plan of Treatment Not on file documented as of this encounter Visit Diagnoses Diagnosis Lumbago- Primary documented in this encounter Care Teams Hat Finishing Materials Preparer Relationship Specialty Start Date End Date Jayesh Krueger MD [address] [place] [address] PCP - General Internal Medicine 12/19/16 documented as of this encounter
--- OUTSIDE RECORDS SUMMARY | 2025-04-27 08:32 | XMS_ITS | Encounter Summary ---
Author Organization [facility] Address [address] [place] [address] Care Team Providers Care Training Administrator Name Role Phone Jayesh Krueger MD Primary Care Provider [phone] Encounter Details Date Type Department Care Team (Latest Contact Info) Description 12/25/2002 Outpatient Historical [facility] [address] [place] [address] Thomas Dailey MD [address] [place] [address] PREOP CARDIOVASC EXAM (Primary Dx) Social History Tobacco Use Types Packs/Day Years Used Date Smoking Tobacco: Never Assessed Comments Unknown Sex and Gender Information Value Date Recorded Sex Assigned at Not on file Legal Sex Female 5:34 AM HEAD OF PHYSICS Gender Identity Not on file Sexual Orientation Not on file documented as of this encounter Plan of Treatment Not on file documented as of this encounter Visit Diagnoses Diagnosis Pre-operative cardiovascular examination- Primary documented in this encounter Care Teams Training Administrator Relationship Specialty Start Date End Date Jayesh Krueger MD [address] [place] [address] PCP - General Internal Medicine 12/19/16 documented as of this encounter
--- OUTSIDE RECORDS SUMMARY | 2025-04-27 08:32 | XMS_ITS | Encounter Summary ---
Author Organization [facility] Address [address] [place] [address] Care Team Providers Care Grinding Machine Tender Name Role Phone Jayesh Krueger MD Primary Care Provider [phone] Encounter Details Date Type Department Care Team (Latest Contact Info) Description 11/27/2002 Outpatient Historical [facility] Imaging and Laboratory Services [address] [place] [address] Thomas Dailey MD [address] [place] [address] DISC DIS NEC/NOS-LUMBAR (Primary Dx) Social History Tobacco Use Types Packs/Day Years Used Date Smoking Tobacco: Never Assessed Comments Unknown Sex and Gender Information Value Date Recorded Sex Assigned at Not on file Legal Sex Female 5:34 AM OBGYN NURSE Gender Identity Not on file Sexual Orientation Not on file documented as of this encounter Plan of Treatment Not on file documented as of this encounter Visit Diagnoses Diagnosis Other and unspecified disc disorder of lumbar region- Primary documented in this encounter Care Teams Grinding Machine Tender Relationship Specialty Start Date End Date Jayesh Krueger MD [address] [place] [address] PCP - General Internal Medicine 12/19/16 documented as of this encounter
--- OUTSIDE RECORDS SUMMARY | 2025-04-27 08:32 | XMS_ITS | Encounter Summary ---
Author Organization [facility] Address [address] [place] [address] Care Team Providers Care Bridge Worker Name Role Phone Jayesh Krueger MD Primary Care Provider Encounter Details Date Type Department Care Team (Latest Contact Info) Description 01/12/2003 Inpatient Historical [facility] Operating Room [address] [place] [address] Thomas Dailey MD [address] [place] [address] LUMB/LUMBOSAC DISC DEGEN (Primary Dx) Social History Tobacco Use Types Packs/Day Years Used Date Smoking Tobacco: Never Assessed Comments Unknown Sex and Gender Information Value Date Recorded Sex Assigned at Not on file Legal Sex Female 5:34 AM RETAIL BUSINESS DEVELOPMENT MANAGER Gender Identity Not on file Sexual Orientation Not on file documented as of this encounter Plan of Treatment Not on file documented as of this encounter Visit Diagnoses Diagnosis Degeneration of lumbar or lumbosacral intervertebral disc- Primary documented in this encounter Care Teams Bridge Worker Relationship Specialty Start Date End Date Jayesh Krueger MD [address] [place] [address] PCP - General Internal Medicine 12/19/16 documented as of this encounter
--- OUTSIDE RECORDS SUMMARY | 2025-04-27 08:32 | XMS_ITS | Encounter Summary ---
Author Organization [facility] Address [address] [place] [address] Care Team Providers Care Manager Mail Name Role Phone Jayesh Krueger MD Primary Care Provider [phone] Encounter Details Date Type Department Care Team (Late st Contact Info) Description 02/06/2001 Outpatient Historical [facility] [address] [place] [address] Sotero Ortiz MD NO ADDRESS ON FILE Myalgia and myositis, unspecified (Primary Dx); Headache(784.0) Social History Tobacco Use Types Packs/Day Years Used Date Smoking Tobacco: Never Assessed Comments Unknown Sex and Gender Information Value Date Recorded Sex Assigned at Not on file Legal Sex Female 5:34 AM PATROL OFFICER Gender Identity Not on file Sexual Orientation Not on file documented as of this encounter Plan of Treatment Not on file documented as of this encounter Visit Diagnoses Diagnosis Myalgia and myositis, unspecified- Primary Mylagia and myositis, unspecified Headache(784.0) Headache documented in this encounter Care Teams Manager Mail Relationship Specialty Start Date End Date Jayesh Krueger MD [address] [place] [address] PCP - General Internal Medicine 12/19/16 documented as of this encounter
--- OUTSIDE RECORDS SUMMARY | 2025-04-27 08:32 | XMS_ITS | Encounter Summary ---
Author Organization [facility] Address [address] [facility] Attn: Epic Prelude ADT JODY SHAHID [address] Care Team Providers Care Sweeper Brush Maker Machine Name Role Phone Jayesh Krueger MD Primary Care Provider [phone] Encounter Details Date Type Department Care Team (Late st Contact Info) Description 02/06/2001 Outpatient Historical Sotero Ortiz MD NO ADDRESS ON FILE Social History Tobacco Use Types Packs/Day Years Used Date Smoking Tobacco: Never Assessed Comments Unknown Sex and Gender Information Value Date Recorded Sex Assigned at Not on file Legal Sex Female 5:34 AM HEAD TRIMMER Gender Identity Not on file Sexual Orientation Not on file documented as of this encounter Plan of Treatment Not on file documented as of this encounter Visit Diagnoses Not on filedocumented in this encounter Care Teams Sweeper Brush Maker Machine Relationship Specialty Start Date End Date Jayesh Krueger MD [address] [place] [address] PCP - General Internal Medicine 12/19/16 documented as of this encounter
--- OUTSIDE RECORDS SUMMARY | 2025-04-27 08:33 | XMS_ITS | Encounter Summary ---
Author Organization [facility] Address [address] [facility] Attn: Epic Prelude ADT [place]ODY [place] [address] Care Team Providers Care Procurement Buyer Name Role Phone Jayesh Krueger MD Primary Care Provider [phone] Encounter Details Date Type Department Care Team (Late st Contact Info) Description 07/09/2000 Outpatient Historical Non-Staff, Physician NO ADDRESS ON FILE Social History Tobacco Use Types Packs/Day Years Used Date Smoking Tobacco: Never Assessed Comments Unknown Sex and Gender Information Value Date Recorded Sex Assigned at Not on file Legal Sex Female 5:34 AM LINING PARTS SEWER Gender Identity Not on file Sexual Orientation Not on file documented as of this encounter Plan of Treatment Not on file documented as of this encounter Visit Diagnoses Not on filedocumented in this encounter Care Teams Procurement Buyer Relationship Specialty Start Date End Date Jayesh Krueger MD [address] [place] [address] PCP - General Internal Medicine 12/19/16 documented as of this encounter
--- OUTSIDE RECORDS SUMMARY | 2025-04-27 08:33 | XMS_ITS | Encounter Summary ---
Author Organization [facility] Address [address] [facility] Attn: Epic Prelude ADT JODY [place]AH[place] [address] Care Team Providers Care Ball Holder Name Role Phone Jayesh Krueger MD Primary Care Provider [phone] Encounter Details Date Type Department Care Team (Late st Contact Info) Description 06/20/2000 Outpatient Historical Non-Staff, Physician NO ADDRESS ON FILE Social History Tobacco Use Types Packs/Day Years Used Date Smoking Tobacco: Never Assessed Comments Unknown Sex and Gender Information Value Date Recorded Sex Assigned at Not on file Legal Sex Female 5:34 AM HOSPITAL ACCOUNT LIAISON Gender Identity Not on file Sexual Orientation Not on file documented as of this encounter Plan of Treatment Not on file documented as of this encounter Visit Diagnoses Not on filedocumented in this encounter Care Teams Ball Holder Relationship Specialty Start Date End Date Jayesh Krueger MD [address] [place] [address] PCP - General Internal Medicine 12/19/16 documented as of this encounter
--- OUTSIDE RECORDS SUMMARY | 2025-04-27 08:33 | XMS_ITS | Encounter Summary ---
Author Organization [facility] Address [address] [facility] Attn: [place] [address] Care Team Providers Care Billet Worker Name Role Phone Jayesh Krueger MD Primary Care Provider [phone] Encounter Details Date Type Department Care Team (Late st Contact Info) Description 04/13/2000 Inpatient Historical Thomas Dailey MD [address] [place] [address] Social History Tobacco Use Types Packs/Day Years Used Date Smoking Tobacco: Never Assessed Comments Unknown Sex and Gender Information Value Date Recorded Sex Assigned at Not on file Legal Sex Female 5:34 AM INSULATOR TESTER Gender Identity Not on file Sexual Orientation Not on file documented as of this encounter Plan of Treatment Not on file documented as of this encounter Visit Diagnoses Not on filedocumented in this encounter Care Teams Billet Worker Relationship Specialty Start Date End Date Jayesh Krueger MD [address] [place] [address] PCP - General Internal Medicine 12/19/16 documented as of this encounter
--- OUTSIDE RECORDS SUMMARY | 2025-04-27 08:33 | XMS_ITS | Encounter Summary ---
Author Organization [facility] Address [address] [facility] Attn: [place] [address] Care Team Providers Care Environmental Remediation Consultant Name Role Phone Jayesh Krueger MD Primary Care Provider [phone] Encounter Details Date Type Department Care Team (Late st Contact Info) Description 05/24/2000 Outpatient Historical Thomsa Dailey MD [address] [place] [address] Social History Tobacco Use Types Packs/Day Years Used Date Smoking Tobacco: Never Assessed Comments Unknown Sex and Gender Information Value Date Recorded Sex Assigned at Not on file Legal Sex Female 5:34 AM SUMMER CLERK Gender Identity Not on file Sexual Orientation Not on file documented as of this encounter Plan of Treatment Not on file documented as of this encounter Visit Diagnoses Not on filedocumented in this encounter Care Teams Environmental Remediation Consultant Relationship Specialty Start Date End Date Jayesh Krueger MD [address] [place] [address] PCP - General Internal Medicine 12/19/16 documented as of this encounter
--- OUTSIDE RECORDS SUMMARY | 2025-04-27 08:33 | XMS_ITS | Encounter Summary ---
Author Organization [facility] Address [address] [facility] Attn: [place] [address] Care Team Providers Care Slope Runner Name Role Phone Jayesh Krueger MD Primary Care Provider [phone] Encounter Details Date Type Department Care Team (Late st Contact Info) Description 03/05/2000 Outpatient Historical Thomas Dailey MD [address] [place] [address] Social History Tobacco Use Types Packs/Day Years Used Date Smoking Tobacco: Never Assessed Comments Unknown Sex and Gender Information Value Date Recorded Sex Assigned at Not on file Legal Sex Female 5:34 AM LOCAL SUPERINTENDENT Gender Identity Not on file Sexual Orientation Not on file documented as of this encounter Plan of Treatment Not on file documented as of this encounter Visit Diagnoses Not on filedocumented in this encounter Care Teams Slope Runner Relationship Specialty Start Date End Date Jayesh Krueger MD [address] [place] [address] PCP - General Internal Medicine 12/19/16 documented as of this encounter
--- OUTSIDE RECORDS SUMMARY | 2025-04-27 08:33 | XMS_ITS | Encounter Summary ---
Author Organization [facility] Address [address] [place] [address] Care Team Providers Care Security Operations Specialist Name Role Phone Jayesh Krueger MD Primary Care Provider [phone] Encounter Details Date Type Department Care Team (Latest Contact Info) Description 06/11/2000 Outpatient Historical [facility] Nasir Uriostegui MD NO ADDRESS ON FILE Headache(784.0) (Primary Dx) Social History Tobacco Use Types Packs/Day Years Used Date Smoking Tobacco: Never Assessed Comments Unknown Sex and Gender Information Value Date Recorded Sex Assigned at Not on file Legal Sex Female 5:34 AM AQUA AMMONIA OPERATOR Gender Identity Not on file Sexual Orientation Not on file documented as of this encounter Plan of Treatment Not on file documented as of this encounter Visit Diagnoses Diagnosis Headache(784.0)- Primary Headache documented in this encounter Care Teams Security Operations Specialist Relationship Specialty Start Date End Date Jayesh Krueger MD [address] [place] [address] PCP - General Internal Medicine 12/19/16 documented as of this encounter
--- OUTSIDE RECORDS SUMMARY | 2025-04-27 08:34 | XMS_ITS | Encounter Summary ---
Author Organization [facility] Address [address] [facility] Attn: [place] [address] Care Team Providers Care Jewel Staker Name Role Phone Jayesh Krueger MD Primary Care Provider [phone] Encounter Details Date Type Department Care Team (Late st Contact Info) Description 01/25/2000 Outpatient Historical Thomas Dailye MD [address] [place] [address] Social History Tobacco Use Types Packs/Day Years Used Date Smoking Tobacco: Never Assessed Comments Unknown Sex and Gender Information Value Date Recorded Sex Assigned at Not on file Legal Sex Female 5:34 AM GROUP THERAPIST Gender Identity Not on file Sexual Orientation Not on file documented as of this encounter Plan of Treatment Not on file documented as of this encounter Visit Diagnoses Not on filedocumented in this encounter Care Teams Jewel Staker Relationship Specialty Start Date End Date Jayesh Krueger MD [address] [place] [address] PCP - General Internal Medicine 12/19/16 documented as of this encounter
--- OUTSIDE RECORDS SUMMARY | 2025-04-27 08:34 | XMS_ITS | Encounter Summary ---
Author Organization [facility] Address [address] [place] [address] Care Team Providers Care Polysomnographic Tech Name Role Phone Jayesh Krueger MD Primary Care Provider [phone] Encounter Details Date Type Department Care Team (Latest Contact Info) Description 12/13/1999 Outpatient Historical [facility] Nasir Uriostegui MD NO ADDRESS ON FILE Degeneration of cervical intervertebral disc (Primary Dx) Social History Tobacco Use Types Packs/Day Years Used Date Smoking Tobacco: Never Assessed Comments Unknown Sex and Gender Information Value Date Recorded Sex Assigned at Not on file 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
--- OUTSIDE RECORDS SUMMARY | 2025-04-27 08:34 | XMS_ITS | Encounter Summary ---
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
--- OUTSIDE RECORDS SUMMARY | 2025-04-27 08:34 | XMS_ITS | Encounter Summary ---
Author Organization [facility] Address [address] [facility] Attn: [place] [address] Care Team Providers Care Human Resources Project Coordinator Name Role Phone Jayesh Krueger MD Primary Care Provider [phone] Encounter Details Date Type Department Care Team (Late st Contact Info) Description 02/27/2000 Outpatient Historical Thomas Dailey MD [address] 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
--- NOTE | 2025-04-27 08:35 | W.ED.SOB ---
HPI - SOB/Dyspnea General: Chief Complaint: Shortness of Breath/Dyspnea Stated Complaint: SOB Time Seen by Provider: 04/27/25 08:29 History of Present Illness: HPI Narrative: 69-year-old female with a history of bipolar disorder, diabetes, peripheral neuropathy, recent toe amputation and new toe infection, Hyperlipidemia, hypothyroidism and hypertension who presents the emergency room shortness of breath. This started in the middle of the night. She has a cough. Pleuritic chest pain. Headache. Malaise. Some mild nausea. No vomiting. No altered mental status. No focal motor deficits. She has some chronic swelling in her left leg secondary to the infection in her toe. She is following with podiatry for this and followed a few days ago. Related Data Home Medications ?Medication ?Instructions ?Recorded ?Confirmed ascorbic acid 7.5 mg-vit E 7.5 1 tab PO DAILY@1000 11/12/20 04/27/25 unit-biotin 1,250 mcg chewable tablet (Hair,Skin,Nails with Biotin) multivitamin 1 tab PO DAILY@1000 11/12/20 04/27/25 cyanocobalamin (vitamin B-12) 1,000 mcg PO DAILY 01/03/23 04/27/25 1,000 mcg tablet (Vitamin B-12) gabapentin 100 mg capsule 100 mg PO BID 07/18/24 04/27/25 potassium chloride 20 mEq 20 meq PO .DAILY@10A07/18/24 04/27/25 tablet,extended release lamotrigine 200 mg tablet 200 mg PO BID 12/30/24 04/27/25 duloxetine 60 mg capsule,delayed 120 mg PO QAM 01/26/25 04/27/25 release fluoxetine 20 mg capsule 20 mg PO QAM 01/26/25 04/27/25 levothyroxine 200 mcg tablet 200 mcg PO .DAILY@10AM 01/26/25 04/27/25 omega 4-atf-fas-fish oil 1,200 mg 1 cap PO DAILY 01/30/25 04/27/25 (144 mg-216 mg) capsule (Fish Oil) diazepam 10 mg tablet 10 mg PO BID PRN Anxiety 04/10/25 04/27/25 Previous Rx's ?Medication ?Instructions ?Recorded insulin syringe-needle U-100 1 mL #100 ea 09/06/22 28 gauge x 1/2 (BD Insulin Syringe) Diabetic shoes #1 ea 04/11/23 blood-glucose meter #1 ea 06/12/23 blood sugar diagnostic (Blood #200 ea 06/15/23 Glucose Test strips) blood-glucose meter (Accu-Chek #1 ea 06/27/23 Guide Glucose Meter) blood sugar diagnostic (Accu-Chek #100 ea 07/26/23 Guide test strips) lancets (Accu-Chek Softclix #200 ea 09/14/23 Lancets) Diabetic Shoes with Inserts #1 ea 12/11/24 insulin syringe-needle U-100 1 mL #100 ea 01/02/25 31 gauge x 5/16 (TRUEplus Insulin) cam boot to right #1 ea 01/05/25 semaglutide 0.25 mg or 0.5 mg (2 0.5 mg (0.736 mL) SUBCUT .weekly 01/27/25 mg/3 mL) subcutaneous pen injector #3 mL (Ozempic) amiodarone 200 mg tablet (Pacerone) See Rx Instructions .Route 02/06/25 .COMPLEX #60 tabs amlodipine 10 mg tablet 10 mg PO DAILY #30 tabs 02/06/25 aspirin 81 mg tablet,delayed 81 mg PO DAILY #30 tabs 02/06/25 release glimepiride 4 mg tablet 2 mg (1/2 x 4 mg) PO BID #30 tabs 02/06/25 olanzapine 5 mg tablet 2.5 mg (1/2 x 5 mg) PO BID #30 tabs 02/06/25 quetiapine 25 mg tablet 25 mg PO BEDTIME #30 tabs 02/06/25 sennosides 8.6 mg-docusate sodium 1 tab PO BID PRN Constipation #30 02/06/25 50 mg tablet (Stool tabs Softener-Laxative) ciprofloxacin HCl 500 mg tablet 500 mg PO BID #14 tabs 04/24/25 (Cipro) clindamycin HCl 300 mg capsule 300 mg PO Q8H 7 days #21 caps 04/24/25 (Cleocin HCl) hydrocodone 5 mg-acetaminophen 325 1 tab PO Q6H PRN pain #14 tabs 04/24/25 mg tablet albuterol sulfate 90 mcg/actuation 2 inh inhalation Q4H PRN shortness 04/27/25 aerosol inhaler of breath or wheezing #6.7 grams dexamethasone 6 mg tablet 6 mg PO DAILY 5 days #5 tabs 04/27/25 Allergies Allergy/AdvReac Type Severity Reaction Status Date / Time azithromycin (From Zithromax) Allergy rash Verified 03/04/25 14:22 cetirizine (From Zyrtec) Allergy rash Verified 03/04/25 14:22 lisinopril (From Zestril) Allergy ALGY-Swell Verified 03/04/25 14:22 Lip/Tongue/Throat metformin AdvReac Intermediate diarrhea Verified 03/04/25 14:22 topiramate (From Topamax) AdvReac Intermediate diarrhea Verified 03/04/25 14:22 Review of Systems Narrative: Constitutional symptoms: Negative except as documented in HPI. Skin symptoms: Negative except as documented in HPI. Eye symptoms: Negative except as documented in HPI. ENMT symptoms: Negative except as documented in HPI. Respiratory symptoms: Negative except as documented in HPI. Cardiovascular symptoms: Negative except as documented in HPI. Gastrointestinal symptoms: Negative except as documented in HPI. Genitourinary symptoms: Negative except as documented in HPI. Musculoskeletal symptoms: Negative except as documented in HPI. Neurologic symptoms: Negative except as documented in HPI. Psychiatric symptoms: Negative except as documented in HPI. Endocrine symptoms: Negative except as documented in HPI. 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 Left shoulder pain Hypothyroid Hyperlipidemia Hypertension Diabetes mellitus Suspected COVID-19 virus infection Hypothyroidism Chronic diarrhea Tension headache, chronic CVA (cerebral vascular accident) TIA (transient ischemic attack) History of aphasia Hx of kidney disease Hx of type 2 diabetes mellitus History of anemia History of GI bleed History of hypothyroidism Hx of primary hypertension History of bipolar disorder History of anxiety History of depression History of posttraumatic stress disorder (PTSD) Surgical History Hx of appendectomy History of back surgery Hx of cholecystectomy Hx of hysterectomy Hx of neck surgery Social History Smoking and tobacco/nicotine status: never used tobacco/nicotine Alcohol intake: current Alcohol intake frequency: holidays/special occasions only Substance/Drug Use: never Physical Exam Narrative: EXAM NARRATIVE: General: Alert, no acute distress. Skin: Warm, dry. Head: Normocephalic, atraumatic. Neck: Supple, trachea midline. Eye: Extraocular movements are intact. Ears, nose, mouth and throat: mucosa moist. Cardiovascular: Regular, Normal peripheral perfusion. Respiratory: Some mild end expiratory wheeze, respirations are non-labored, breath sounds are equal, Symmetrical chest wall expansion. Gastrointestinal: Soft, Nontender, Non distended Musculoskeletal: Normal ROM, no deformity. Neurological: Alert and oriented, No focal neurological deficit observed. Psychiatric: Cooperative, appropriate mood & affect. Course Vital Signs: Vital signs: Vital Signs Temperature 97.8 F 04/27/25 09:42 Pulse Rate 65 04/27/25 10:45 Respiratory Rate 18 04/27/25 09:08 Blood Pressure 148/112 04/27/25 10:45 Pulse Oximetry 100 04/27/25 10:45 Oxygen Delivery Me thod Room Air 04/27/25 09:08 MDM - SOB/Dyspnea Medical Decision Making Differential diagnosis for patient with shortness of breath includes but is not limited to and based on the above HPI, review of systems and physical exam: Pneumonia. Bronchitis. Asthma or COPD with acute exacerbation. Acute coronary syndrome / AK. Pulmonary embolism. Anxiety. Congestive heart failure. Viral infections including influenza and Covid-19. Atrial fibrillation. Anxiety. Pleural effusion. Pneumothorax. Orders placed to evaluate differential diagnosis based on the above differential, HPI and physical exam EKG: Time 8:39 AM. Rate 66. Normal sinus rhythm, No ST-T changes, no ectopy, normal [place] & QRS intervals, This was reviewed and interpreted by myself the ER physician at 8:45 AM Repeat EKG: Time 10:12 AM. Rate 65. Normal sinus rhythm, No ST-T changes, no ectopy, normal [place] & QRS intervals, This was reviewed and interpreted by myself the ER physician at 10:17 AM Chest x-ray: Possible chronic interstitial lung disease. No apparent acute process. This was reviewed and interpreted by myself the emergency room physician. I also reviewed the radiology report. Lab Review: Laboratory results were reviewed and interpreted by myself the emergency room physician. No leukocytosis. No anemia. No renal failure. Sodium is a little low at 128. Patient always runs 129-132. Serial cardiac markers are negative. CRP is elevated at 93. proBNP is at her baseline at around 700. Flu COVID and RSV are negative I reviewed the patient's medical record. 69-year-old female with a history of bipolar disorder, diabetes, peripheral neuropathy, recent toe amputation and new toe infection, Hyperlipidemia, hypothyroidism and hypertension Reexamination: Patient remained stable. No increased work of breathing. No altered mental status. No focal motor deficits. No oxygen requirements Assessment and plan: Upper respiratory infection ?IV Solu-Medrol. Patient on antibiotics already for foot infection. - Discharged home - Discussed plan with patient. Answered any questions. - Evaluation and treatment of this problem were appropriate in the emergency setting. Lab Data 04/27/25 08:29 04/27/25 08:29 Labs/Radiology: Radiology Impressions Chest X-Ray 04/27/25 08:07 IMPRESSION: Mild interstitial prominence in the lower lung zones without pulmonary vascular congestion. Consider mild chronic interstitial lung disease Laboratory Results WBC 11.15 10^3/uL (3.29-11.43) 04/27/25 08:29 RBC 3.92 10^6/uL (3.85-5.65) 04/27/25 08:29 Hgb 11.40 g/dL (11.27-16.99) 04/27/25 08: Hct 36.7 % (36-47) 04/27/25 08: MCV 93.6 fl (85-98) 04/27/25 08: MCH 29.1 pg (27-33) 04/27/25 08: MCHC 31.1 g/dL (30-55) 04/27/25 08: RDW 14.9 % (12.1-15.1) 04/27/25 08:29 Plt Count 337 10^3/cmm (157-399) 04/27/25 08: MPV 9.5 fL (7.4-10.4) 04/27/25 08: Neut % (Auto) 71.5 % 04/27/25 08:29 Lymph % (Auto) 12.8 % 04/27/25 08:29 [place] % (Auto) 10.8 % 04/27/25 08: Eos % (Auto) 3.9 % 04/27/25 08:29 Baso % (Auto) 0.5 % 04/27/25 08: Neut # (Auto) 7.97 10^3/uL (1.8-7.7) H 04/27/25 08: Lymph # (Auto) 1.4 10^3/uL (0.8-4.8) 04/27/25 08: [place] # (Auto) 1.2 10^3/uL (0.2-0.9) H 04/27/25 08: Eos # (Auto) 0.4 10^3/uL (0.0-0.8) 04/27/25 08: Baso # (Auto) 0.1 10^3/uL (0.0-0.1) 04/27/25: Nucleated RBC % (auto) 0 % 04/27/25 08: Nucleated RBCs # 0.0 /100WBC 04/27/25 08: Sodium 128 mmol/L (136-145) L 04/27/25 08: Potassium 5.3 mmol/L (3.5-5.1) H 04/27/25 08: Chloride 89 mmol/L (98-107) L 04/27/25 08: Carbon Dioxide 29 mmol/L (22-29) 04/27/25 08: Anion Gap 15.3 (5-19) 04/27/25 08: BUN 24 mg/dL (8-23) H 04/27/25 08: Creatinine 0.7 mg/dL (0.5-0.9) 04/27/25: GFR Calculation 82.7 mL/min (90-130) L 04/27/25 08: Glucose 378 mg/dL (65-115) H 04/27/25 08: Calculated Osmolality 286 mOsm/kg (285-295) 04/27/25 08: Lactic Acid 1.2 mmol/L (0.5-2.2) 04/27/25 08: Calcium 9.2 mg/dL (8.5-10.5) 04/27/25 08: Total Bilirubin 0.6 mg/dL (0.15-1.2) 04/27/25 08: AST 13 U/L (0-32) 04/27/25 08: ALT 19 U/L (0-33) 04/27/25 08: Alkaline Phosphatase 124 U/L (35-105) H 04/27/25 08:29 Troponin T Baseline 24 ng/L (0-10) H 04/27/25 08: Troponin T 120 Minute 20.64 ng/L (0-10) H 04/27/25 10:28 Delta Troponin T -3.36 ABS# (0-10) L 04/27/25 10:28 C-Reactive Protein 92.5 mg/L (0.0-4.9) H 04/27/25 08:29 NT-Pro-B Natriuret Pep 789 pg/mL (0-125) H 04/27/25 08:29 Total Protein 6.9 g/dL (6.6-8.7) 04/27/25 08: Albumin 4.0 g/dL (3.5-5.2) 04/27/25 08: Globulin 2.9 g/dL (1.3-4.6) 04/27/25 08:29 Urine Color Yellow (Yellow) 04/27/25 09:10 Urine Appearance Clear (CLEAR) 04/27/25 09:10 Urine pH 6.5 (5-7) 04/27/25 09:10 Ur Specific [place] 1.021 (1.005-1.030) 04/27/25 09:10 Urine Protein Trace (Negative) A 04/27/25 09:10 Urine Glucose (UA) 3+ (Normal) H 04/27/25 09:10 Urine Ketones Negative (Negative) 04/27/25 09:10 Urine Blood Negative (Negative) 04/27/25 09:10 Urine Nitrate Negative (Negative) 04/27/25 09:10 Urine Bilirubin Negative (Negative) 04/27/25 09:10 Urine Urobilinogen 0.2 mg/dL (Negative) 04/27/25 09:10 Ur Leukocyte Esterase Negative (Negative) 04/27/25 09:10 Urine RBC Rare /hpf (0-2) 04/27/25 09:10 Urine WBC 0-4 /hpf (0-5) H 04/27/25 09:10 Ur Squamous Epith Cells 0-4 /hpf (0-5) H 04/27/25 09:10 Amorphous Sediment Not Reportable 04/27/25 09:10 Urine Bacteria Trace /hpf (NONE) 04/27/25 09:10 Hyaline Casts 0-4 /lpf H 04/27/25 09:10 Influenza A (PCR) Negative (Negative) 04/27/25 08:48 Influenza Type B (PCR) Negative (Negative) 04/27/25 08:48 RSV (PCR) Negative (Negative) 04/27/25 08:48 SARS-CoV-2 (PCR) Negative (Negative) 04/27/25 08:48 All radiology interpretation(s) finalized by discharge Discharge Plan Discharge Patient Disposition: Home Clinical Impression: Acute upper respiratory infection Condition: Stable Prescriptions: New dexamethasone 6 mg tablet 6 mg PO DAILY 5 Days Qty: 5 0RF albuterol sulfate 90 mcg/actuation HFA aerosol inhaler 2 inh inhalation Q4H PRN (Reason: shortness of breath or wheezing) Qty: 6.7 0RF Rx Instructions: Please provide patient with a spacer No Action (DME) cam boot to right See Rx Instructions .Route .MEDSUPPLY Qty: 1 0RF Rx Instructions: As directed lamotrigine 200 mg tablet 200 mg PO BID (DME) Diabetic shoes See Rx Instructions .Route .MEDSUPPLY Qty: 1 0RF Rx Instructions: Heel lift and insoles. Last HgbA1C 5.7 on 02/01. (DME) Diabetic Shoes with Inserts See Rx Instructions .Route .MEDSUPPLY Qty: 1 0RF Rx Instructions: As directed (DME) insulin syringe-needle U-100 [BD Insulin Syringe] 1 mL 28 gauge x 1/2 syringe See Rx Instructions .Route Qty: 100 11RF Rx Instructions: As directed (DME) blood-glucose meter Misc See Rx Instructions .MEDSUPPLY Qty: 1 0RF Rx Instructions: Check TID (DME) Blood Glucose Test Strip See Rx Instructions .MEDSUPPLY Qty: 200 12RF Rx Instructions: Use with glucometer to check blood sugar three times a day (DME) blood-glucose meter [Accu-Chek Guide Glucose Meter] Misc See Rx Instructions .Route Qty: 1 0RF Rx Instructions: As directed (DME) Accu-Chek Guide test strips Strip See Rx Instructions .Route Qty: 100 11RF Rx Instructions: check TID (DME) lancets [Accu-Chek Softclix Lancets] Misc See Rx Instructions .Route Qty: 200 11RF Rx Instructions: use as directed three times a day (DME) insulin syringe-needle U-100 [TRUEplus Insulin] 1 mL 31 gauge x 5/16 syringe See Rx Instructions .ROUTE .COMPLEX Qty: 100 3RF Dose Instruction: TO USE WITH LANTUS Rx Instructions: TO USE WITH LANTUS Ozempic 0.25 mg or 0.5 mg (2 mg/3 mL) pen injector 0.5 mg SUBCUT .weekly Qty: 3 11RF Rx Instructions: Sunday multivitamin Tablet 1 tab PO DAILY@1000 Hair, Skin, Nails with Biotin 7.5-7.5-1,250 mg-unit-mcg Tablet,Chewable 1 tab PO DAILY@1000 cyanocobalamin (vitamin B-12) [Vitamin B-12] 1,000 mcg Tablet 1,000 mcg PO DAILY diazepam 10 mg tablet 10 mg PO BID PRN (Reason: Anxiety) hydrocodone-acetaminophen 5-325 mg tablet 1 tab PO Q6H PRN (Reason: pain) Qty: 14 0RF ciprofloxacin HCl [Cipro] 500 mg tablet 500 mg PO BID Qty: 14 0RF clindamycin HCl [Cleocin HCl] 300 mg capsule 300 mg PO Q8H 7 Days Qty: 21 0RF gabapentin 100 mg capsule 100 mg PO BID potassium chloride 20 mEq tablet extended release 20 meq PO .DAILY@10AM fluoxetine 20 mg capsule 20 mg PO QAM duloxetine 60 mg capsule,delayed release(DR/EC) 120 mg PO QAM levothyroxine 200 mcg tablet 200 mcg PO .DAILY@10AM omega 4-srx-gyq-fish oil [Fish Oil] 1,200 (144-216) mg Capsule 1 cap PO DAILY amiodarone [Pacerone] 200 mg Tablet See Rx Instructions .ROUTE .COMPLEX Qty: 60 0RF Rx Instructions: Take 400 mg by mouth daily for 7 days then reduce dose to 200 mg daily. aspirin 81 mg Tablet,Delayed Release (Dr/Ec) 81 mg PO DAILY Qty: 30 0RF glimepiride 4 mg tablet 2 mg PO BID Qty: 30 0RF quetiapine 25 mg Tablet 25 mg PO BEDTIME Qty: 30 0RF sennosides-docusate sodium [Stool Softener-Laxative] 8.6-50 mg Tablet 1 tab PO BID PRN (Reason: Constipation) Qty: 30 0RF olanzapine 5 mg Tablet 2.5 mg PO BID Qty: 30 0RF amlodipine 10 mg tablet 10 mg PO DAILY Qty: 30 0RF Discharge Orders: Discharge ED (Routine); Ordered 04/27/25 Ordered By: Deyanira Sanderson Referrals: Carter Yusuf MD [Primary Care Provider, Family Practice] Discharge Diet: Usual diet Discharge Activity: Increase activity as tolerated Patient Instructions: How to Use a Metered-Dose Inhaler and a Spacer (ED), Opioid Safety, Pain Management, Patient Portal & Brianna Instructions Activity Restrictions/Additional Instructions: Thank you for choosing [facility] for your healthcare needs today. You have been screened and evaluated and felt safe for discharge. Health conditions do change or evolve sometimes and as such it is important that you follow up with your Primary Doctor to be re checked, 3-5 days is a general good time frame for follow up. You are always welcome to return to the ED for re assessment if your symptoms are worsening or you have new concerns Print Language: Dutch Coding Level of Care Code ED Stone Dresser for Jaret Deal
--- OUTSIDE RECORDS SUMMARY | 2025-04-27 08:35 | XMS_ITS | Encounter Summary ---
Author Organization [facility] Address [address] [place] [address] Care Team Providers Care Refinery Operator Helper Crude Unit Name Role Phone Jayesh Krueger MD Primary Care Provider [phone] Encounter Details Date Type Department Care Team (Late st Contact Info) Description 09/01/1999 Outpatient Historical [facility] [place] [address] [place] [address] Social History Tobacco Use Types Packs/Day Years Used Date Smoking Tobacco: Never Assessed Comments Unknown Sex and Gender Information Value Date Recorded Sex Assigned at Not on file 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
--- OUTSIDE RECORDS SUMMARY | 2025-04-27 08:35 | XMS_ITS | Clinical Summary ---
Author Organization [facility] Address [address] 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 RAW STOCK Gender Identity Not on file Sexual Orientation [...] Screening 08/28/2026 Medical Devices Implanted Type Area Gem Technician Device Identifier Shelf Expiration Date Model / Serial / Lot Cement Palacos Sgl [id number] - [id number] Implanted:Qty: 1 on 04/02/2013 Cement Left: Knee [employer] 11/05/2017 00-1112-14 0- / / [id number] Bearing Ruthie Mathew Md Sz 5 [id number] - [id number] Implanted:Qty: 1 on 04/02/2013 Knee Left: Knee [employer] 07/08/2016 [id number] / / [id number] Tray Tib [place] Uni Szb Lm [id number] - [id number] Implanted:Qty: 1 on 04/02/2013 Knee Left: Knee [employer] 07/08/2022 [id number] / / [id number] [place] Partial Knee System, Cemented Twin Pegged Femoral Implanted:Qty: 1 on 04/02/2013 by Jean-Paul Kirkland MD Left: Knee [employer] 10/06/2022 [id number] / / [id number] Insurance MEDICARE PART A AND B [facility] Care Teams Technical Support Technician Relationship Specialty Start Date End Date Jayesh Krueger MD [address] [place] [address] PCP - General 10/21/20
--- OUTSIDE RECORDS SUMMARY | 2025-04-27 08:35 | XMS_ITS | Encounter Summary ---
Author Organization [facility] Address [address] [place] [address] Care Team Providers Care Research Project Manager Name Role Phone Jayesh Krueger MD Primary Care Provider [phone] Encounter Details Date Type Department Care Team (Late st Contact Info) Description 01/12/2010 Ancillary Orders 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 Gender Identity Not on file Sexual Orientation Not on file documented as of this encounter Plan of Treatment Not on file documented as of this encounter Results * XR KNEE 1 OR 2 VW LEFT (01/12/2010 11:48 AM CDT) Anatomical Region Laterality Modality Lower Extremity Computed Radiogr aphy Narrative 08/03/2011 9:33 AM CHANGE MANAGER AP and lateral radiographs of both knees [...] pain documented in this encounter Care Teams Research Project Manager Relationship Specialty Start Date End Date Jayesh Krueger MD [address] [place] [address] PCP - General Internal Medicine 12/19/16 documented as of this encounter
--- OUTSIDE RECORDS SUMMARY | 2025-04-27 08:35 | XMS_ITS | Clinical Summary ---
Author Organization [facility] Address [address] [facility] [address] Care Team Providers Care Bakery Technician Name Role Phone Jayesh Krueger MD Primary Care Provider [phone] Allergies Active Allergy Reactions Criticality Noted Date [...] on file Legal Sex Female 5:34 AM COLLEGE HIRE Gender Identity Not on file Sexual Orientation Not on file Occupation Industry Job Start Date Job End Date Not on file Not on file Not on file Not on file Last Filed Vital Signs Vital Sign Reading Time Taken Comments Blood Pressure 136/76 04/30/2020 8:37 AM CDT Pulse 72 04/30/2020 8:37 AM CDT Temperature 36.4 C (97.5 F) 06/10/2013 9:02 AM COLLEGE HIRE Respiratory Rate 11 06/10/2013 4:00 PM COLLEGE HIRE Oxygen Saturation 95% 06/10/2013 4:00 PM COLLEGE HIRE Inhaled Oxygen Concentration - - Weight 85.3 [...] 11/27/1999 DIABETES ANNUAL RETINAL EXAM 10/18/2003 10/17/2002 RSV VACCINE (60+ or ) (1 - Risk 50-74 years 1-dose series) 2004 ZOSTER VACCINE (1 of 2) 2004 DIABETES MICROALBUMIN ANNUAL SCREEN 12/13/201012/13 LDL CHOLESTEROL ANNUAL 12/13/2010 12/13/2009, 2009 DIABETES HBA1C Q 6 MONTHS 05/24/20192018, 12/13/2009, 07/29/2009 DIABETES ANNUAL FOOT EXAM 09/02/2019 09/02/2018 OSTEOPOROSIS SCREENING 11/27/2019 INFLUENZA VACCINE (#1) 2025 05/12/2013 Medical Devices Implanted Type Area Housekeeping/Laundry Supervisor Device Identifier Shelf Expiration Date Model / Serial / Lot Cement Palacos Sgl [id number] - [id number] Implanted:Qty: 1 on 04/02/2013 at [facility] Cement Left: Knee [employer] 11/05/2017 00-1112-14 0- / / [id number] Tray Tib [place] Uni Szb Lm [id number] - [id number] Implanted:Qty: 1 on 04/02/2013 at [facility] Knee Left: Knee [employer] 07/08/2022 [id number] / / [id number] Bearing Ruthie Mathew Md Sz 5 [id number] - [id number] Implanted:Qty: 1 on 04/02/2013 at [facility] Knee Left: Knee [employer] 07/08/2016 [id number] / / [id number] [place] Partial Knee System, Cemented Twin Pegged Femoral Implanted:Qty: 1 on 04/02/2013 by Jean-Paul Kirkland MD at [facility] Left: Knee [employer] 10/06/2022 [id number] / / [id number] Procedures Procedure Name Priority Date/Time Associated Diagnosis [...] 9:15 AM CDT) MICROALBUMIN, URINE 0.2 mg/dL [facility] Comment: Unable to flag abnormal result(s), please refer to reference range(s) below: Reference Range: Not established Creatinine, Urine 37.9 20 - 320 mg/dL [facility] MICROALBUMIN/CREA T RATIO, UR 5 <30.0 mcg/mg Cr [facility] Comment: The ADA (Diabetes Care 26: S94-S98, 2003) defines abnormalities in albumin excretion as follows: Category Result (mcg/mg creatinine) Normal <30 Microalbuminuria 30-299 Clinical albuminuria > or = 300 The ADA recommends that at least two of three specimens collected within a 3-6 month period be abnormal before considering a patient to be within a diagnostic category. Test Performed by [facility] [employer] [facility], [address] [place] [address] Leonel Jarquin M.D., Ph.D., Director of Laboratories , CLIA [id number] 12/13/2009 9:15 AM CDT 12/13/2009 10:51 AM CDT Comment:URINE us Brice VARGAS URINE ORDERABLES Final Resul t Performing Organization Address [facility] Phone Number INTERFACE SYSTEM Refer to clinic/hospital department [facility] CLIA# [id number] [facility] [place] [address] * (ABNORMAL) HEMOGLOBIN A1C (12/13/2009 9:12 AM CDT) HEMOGLOBIN A1C 7.7(H) 4.0 - 6.0 %A1C [facility] Blood specimen (specimen) 12/13/2009 9:12 AM CDT 12/13/2009 9:26 AM CDT us Brice VARGAS CHEMISTRY ORDERABLES Final R esult Performing Organization Address [facility] Phone Number INTERFACE SYSTEM Refer to clinic/hospital department [facility] CLIA# [id number] [address] [place] [address] * (ABNORMAL) LIPID PANEL (12/13/2009 9:12 AM CDT) CHOLESTEROL 121 0 - 200 mg/dL [facility] TRIGLYCERIDE 291(H) 0 - 150 mg/dL [facility] HDL 16(L) 40 - 60 mg/dL [facility] LDL CALCULATED 47 0 - 100 mg/dL [facility] Comment: Calculated LDL Reference: <100 Optimal 100-129 Near Optimal 130-159 Borderline High >160 High Risk CALCULATED TOTAL CHOLESTEROL TO HDL RATIO 7.56(H) 3.27 - 4.44 [facility] Blood specimen (specimen) 12/13/2009 9:12 AM CDT 12/13/2009 9:26 AM CDT Brice VARGAS CHEMISTRY ORDERABLES Edited INTERFACE SYSTEM Refer to clinic/hospital department [facility] CLIA# [id number] [facility] [place] [address] from Last 3 Months or Most Recently Relevant to [place] [address] MEDICARE PART A AND B [employer] Directives For more information, please contact: [phone] * Full Code (Latest Code Status on File) Date Activated Date Inactivated Comments 04/02/2013 10:34 AM 04/03/2013 5:21 PM * Full Code Date Activated Date Inactivated Comments 04/02/2013 6:45 AM 04/02/2013 10:34 AM Care Teams Bakery Technician Relationship Specialty Start Date End Date Jayesh Krueger MD [address] [place] [address] PCP - General Internal Medicine 12/19/16
--- OUTSIDE RECORDS SUMMARY | 2025-04-27 08:36 | XMS_ITS | Encounter Summary ---
Author Organization [facility] Address [address] [place] [address] Care Team Providers Care Polymer Engineer Name Role Phone Jayesh Krueger MD Primary Care Provider [phone] Encounter Details Date Type Department Care Team (Latest Contact Info) Description 03/20/2006 Outpatient Historical [facility] Endocrinology-[facility] [place] [address] [address] [place] [address] 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
--- OUTSIDE RECORDS SUMMARY | 2025-04-27 08:36 | XMS_ITS | Patient Health Record ---
Author Organization [facility] Address [address] [place] [address] Care Team Providers Care Veterinary Milk Specialist Name Role Phone Carter Yusuf Primary Care Provider Sam Tomlinson [phone] Allergies Allergen (clinical drug ingredient) Drug/Non Drug [...] Status W/U Status Risk Notes Problem Dyspareunia (61907936) Dyspareunia (625.0) 2004 Problem resolved confirmed [facility] [id number] Problem Adjustment disorder with mixed disturbance of emotions AND conduct (09034788) Adjustment disorder with mixed disturbance of emotions and conduct (F43.25) Active confirmed Problem Atherosclerotic heart disease of [place] coronary artery without angina pectoris (597453978569173) Atherosclerotic heart disease of [place] coronary artery without angina pectoris (I25.10) Active confirmed [id number] med Description:Cor onary arteriosclerosi s Problem Gastro-esophageal reflux disease without esophagitis (992460285) Gastro-esophage al reflux disease without esophagitis (K21.9) Active confirmed [id number] med Description:Gas troesophageal reflux disease Problem Chest pain (83707378) Chest pain, unspecified (R07.9) Active confirmed [id number] med Description:Cherise st pain Problem Dysphagia (28287532) Dysphagia, unspecified (R13.10) Active confirmed Problem Anxiety (78349821) Anxiety (F41.9) Active confirmed Problem Bipolar 1 disorder (707951550) Bipolar 1 disorder (F31.9) Active confirmed Problem Posttraumatic stress disorder (01629246) Post traumatic stress disorder (PTSD) (F43.10) Active confirmed Problem Insomnia (317302999) Insomnia (G47.00) Active confirmed Problem Dysphagia (49758647) Dysphagia, unspecified type (R13.10) Active confirmed Problem Psychosis (34561598) Psychosis (F29) Active confirmed Problem Steatorrhea (93958003) Steatorrhea (K90.9) Active confirmed Problem History of adenomatous polyp of colon (421213252) History of adenomatous polyp of colon (Z86.010) Active confirmed Problem Hypercholesterole kedar (99695258) Hypercholestero lemia (272.0) 2004 Problem resolved confirmed [id number] Problem Late effects of cerebrovascular disease (401198437) Old CVA (438.9) 2004 Problem resolved confirmed [id number] Problem Acquired hypothyroidism (692555737) Acquired hypothyroidism (244.8) 2004 Problem resolved confirmed [id number] Problem Diabetes mellitus type 2 (disorder) (22229070) Type 2 diabetes (250.00) 2004 Problem resolved confirmed [id number]- Problem History of adenomatous polyp of colon (616459335) Hx of adenomatous polyp of colon (Z86.010) Active confirmed Problem Atrophic gastritis (31720193) Mild chronic gastritis (K29.50) Active confirmed Problem Gastroesophageal reflux disease (259671696) Gastroesophagea l reflux disease, unspecified whether esophagitis present (K21.9) Active confirmed Plan Of Treatment Pending Test Test Name Order Date Culture Stool 46445, 55924, 27357, 42372 , 43346 08/15/2021 Giardia/Cryptosporidium Screen 11965, 87 329 08/15/2021 Fecal Leukocyte 86664 08/15/2021 CDiff PCR Rfx C diff Toxin NAP/EPI 89458 , 76081 08/15/2021 Calprotectin Fecal 26474 08/15/2021 Pancreatic Elastase Fecal--12459 022 Diagnostic Colonoscopy-34506 08/15/2021 EGD, Upper GI Diagnostic-98668 2 Insurance Providers Payer Name Payer Address Payer Phone Subscriber Number Group Number Insured Name Patient Relationship to Insured Coverage Start Date Coverage End Date [place] [address] [place] [phone] [id number] Kaylee Ch Self - patient is the insured [facility] [address] [address] [place] [address] [id number] Kaylee Ch Self - patient is the [...]
--- OUTSIDE RECORDS SUMMARY | 2025-04-27 08:36 | XMS_ITS | Encounter Summary ---
Author Organization [facility] Address [address] [place] [address] Care Team Providers Care Toppiece Chopper Name Role Phone Jayesh Krueger MD Primary Care Provider [phone] Encounter Details Date Type Department Care Team (Latest Contact Info) Description 07/03/2006 Outpatient Historical [facility] Endocrinology-[facility] [address] [facility] [address] [place] [address] Chin Patel MD NO ADDRESS ON FILE DM w/o Complication Type II, Uncontrolled (Primary Dx); Other and Unspecified Hyperlipidemia; Unspecified Essential Hypertension Social History Tobacco Use Types Packs/Day Years Used Date Smoking Tobacco: Never Assessed Comments Unknown Sex and Gender Information Value Date Recorded Sex Assigned at Not on file 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
--- OUTSIDE RECORDS SUMMARY | 2025-04-27 08:36 | XMS_ITS | Encounter Summary ---
Author Organization [facility] Address [address] [place] [address] Care Team Providers Care Body Presser Name Role Phone Jayesh Krueger MD Primary Care Provider [phone] Encounter Details Date Type Department Care Team (Latest Contact Info) Description 10/31/2006 Outpatient Historical [facility] Endocrinology-[facility] [address] [address] Brice Oconnell, [place] [address] 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
--- OUTSIDE RECORDS SUMMARY | 2025-04-27 08:37 | XMS_ITS | Encounter Summary ---
Author Organization [facility] Address [address] [place] [address] Care Team Providers Care Health Coach Name Role Phone Jayesh Krueger MD Primary Care Provider Encounter Details Date Type Department Care Team (Latest Contact Info) Description 07/05/2005 Outpatient Historical [facility] Imaging Services-Rajesh Cleay[place] [address] [place] [address] Anthony Andrews, DPM [address] [place] [address] OTHER HAMMER TOE (Primary Dx) Social History Tobacco Use Types Packs/Day Years Used Date Smoking Tobacco: Never Assessed Comments Unknown Sex and Gender Information Value Date Recorded Sex Assigned at Not on file 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
--- OUTSIDE RECORDS SUMMARY | 2025-04-27 08:37 | XMS_ITS | Encounter Summary ---
Author Organization [facility] Address [address] [place] [address] Care Team Providers Care Business Continuity Manager Name Role Phone Jayesh Krueger MD Primary Care Provider [phone] Encounter Details Date Type Department Care Team (Latest Contact Info) Description 11/06/2005 Outpatient Historical [facility] Endocrinology-[facility] [place] [address] [place] [address] Chin Patel MD NO ADDRESS ON FILE DM w/o Complication Type II (CMS/HCC) (Primary Dx); Other and Unspecified Hyperlipidemia; Unspecified Essential Hypertension Social History Tobacco Use Types Packs/Day Years Used Date Smoking Tobacco: Never Assessed Comments Unknown Sex and Gender Information Value Date Recorded Sex Assigned at Not on file 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 Gender Identity Not on file Sexual Orientation Not on file documented as of this encounter Plan of Treatment Not on file documented as of this encounter Visit Diagnoses Diagnosis Type II or unspecified type diabetes mellitus without mention of complication, not stated as uncontrolled- Primary Other and unspecified hyperlipidemia Unspecified essential hypertension documented in this encounter Care Teams Business Continuity Manager Relationship Specialty Start Date End Date Jayesh Krueger MD [address] [place] [address] PCP - General Internal Medicine 12/19/16 documented as of this encounter
[2025-04-27 08:40] VITALS: BP 126/76; PULSE 67; RESP 20; O2SAT 100
[2025-04-27 08:44] LABS: Hematocrit 36.7 % (36-47); Hemoglobin 11.40 g/dL (11.27-16.99); Mean Corpuscular HGB Conc 31.1 g/dL (30-55); Mean Corpuscular Hemoglobin 29.1 pg (27-33); Mean Corpuscular Volume 93.6 fl (85-98); Nucleated Red Blood Cells % 0 %; Platelet Count 337 10^3/cmm (157-399); Red Blood Count 3.92 10^6/uL (3.85-5.65); White Blood Count 11.15 10^3/uL (3.29-11.43)
[2025-04-27 09:02] LABS: Troponin(5th) Baseline 24 ng/L (0-10)
[2025-04-27 09:04] LABS: Lactic Sepsis W/Reflex 1.2 mmol/L (0.5-2.2)
[2025-04-27 09:08] VITALS: PULSE 65; RESP 18; O2SAT 100
[2025-04-27 09:13] VITALS: PULSE 64
[2025-04-27 09:13] LABS: Alanine Aminotransferase 19 U/L (0-33); Albumin Level 4.0 g/dL (3.5-5.2); Alkaline Phosphatase 124 U/L (35-105); Anion Gap 15.3 (5-19); Aspartate Amino Transferase 13 U/L (0-32); Blood Urea Nitrogen 24 mg/dL (8-23); Calcium 9.2 mg/dL (8.5-10.5); Carbon Dioxide 29 mmol/L (22-29); Chloride 89 mmol/L (98-107); Creatinine Clr Calc Pharmacy 71.4269; Globulin 2.9 g/dL (1.3-4.6); Glucose 378 mg/dL (65-115); NT Pro B Type Natriuretic Pept 789 pg/mL (0-125); Osmolality Calculated 286 mOsm/kg (285-295); Potassium 5.3 mmol/L (3.5-5.1); Sodium 128 mmol/L (136-145); Total Protein 6.9 g/dL (6.6-8.7)
[2025-04-27 09:23] LABS: Glucose Urine UA 3+ (Normal); Nitrate Urine Negative (Negative); Specific Gravity, Urine 1.021 (1.005-1.030)
[2025-04-27 09:36] LABS: Respiratory Syncytial Virus Ce NEGATIVE (Negative); SARS-CoV-2 PCR NEGATIVE (Negative)
[2025-04-27 09:42] VITALS: TEMP 36.6
[2025-04-27 09:48] LABS: UA Manual Slide Review YES; UA Slide Review UA Slide Review Perf
--- NOTE | 2025-04-27 10:08 | ECG_ITS ---
[employer] Test Date: 2025-04-27 Pat Name: Kaylee Ch Department: Room: Gender: Female Hand I Blocker: : 1955 Requested By: Deyanira Barbosa Order Number: [id number] Yasmine MD: Barrie Urbina M.D. Measurements Intervals [place] Rate: 65 P: 52 MO: 153 QRS: 79 QRSD: 100 T: 55 QT: 394 QTc: 411 Interpretive Statements SINUS RHYTHM POSSIBLE LEFT ATRIAL ENLARGEMENT [-0.1mV P-WAVE IN V1/V2] Compared to ECG 04/27/2025 08:39:29 No significant changes Electronically Signed On 04-28-2025 19:42:38 CDT by Barrie Urbina M.D. [email or web address]
[2025-04-27 10:45] VITALS: BP 148/112; PULSE 65; O2SAT 100
[2025-04-27 10:58] LABS: Troponin 5 2HR 20.64 ng/L (0-10)
[2025-04-27 11:09] LABS: Troponin 5 2HR Delta -3.36 ABS# (0-10)
== END 2025-04-27 10:46 | disposition home or self-care (01) ==
PROVIDERS: Emergency Provider Emergency Medicine; PCP Family Medicine
DX: J06.9 Acute upper respiratory infection, unspecified (principal); Z11.52 Encounter for screening for COVID-19; Z79.82 Long term (current) use of aspirin; Z86.73 Personal history of transient ischemic attack (TIA), and cerebral infarction without residual deficits; E78.5 Hyperlipidemia, unspecified; E11.22 Type 2 diabetes mellitus with diabetic chronic kidney disease; I12.9 Hypertensive chronic kidney disease with stage 1 through stage 4 chronic kidney disease, or unspecified chronic kidney disease; N18.9 Chronic kidney disease, unspecified
CPT/HCPCS: 36415; 71045; 80053; 81001; 83605; 83880; 84484; 85025; 86140; 87040; 87637; 93005; 94640; 99285; J7613

== ENCOUNTER → 2025-05-07 11:22 | Outpatient (BNVA) | payer MEDICARE, OTHER, MEDICAID, SELFPAY | PROVIDERS: PCP Family Medicine; Visit Provider Podiatrist Foot & Ankle Surgery | DX: M79.672 Pain in left foot (principal); E11.621 Type 2 diabetes mellitus with foot ulcer; L97.522 Non-pressure chronic ulcer of other part of left foot with fat layer exposed; E11.42 Type 2 diabetes mellitus with diabetic polyneuropathy; Z89.412 Acquired absence of left great toe; Z79.4 Long term (current) use of insulin; Z79.85 Long-term (current) use of injectable non-insulin antidiabetic drugs | CPT/HCPCS: 28010; 28011; 73630; J9999 ==

== ENCOUNTER → 2025-05-14 12:39 | Outpatient (BNVA) | payer MEDICARE, OTHER, MEDICAID, SELFPAY | PROVIDERS: PCP Family Medicine; Visit Provider Podiatrist Foot & Ankle Surgery | DX: E11.42 Type 2 diabetes mellitus with diabetic polyneuropathy (principal); Z89.412 Acquired absence of left great toe; E11.621 Type 2 diabetes mellitus with foot ulcer; L97.522 Non-pressure chronic ulcer of other part of left foot with fat layer exposed; Z79.4 Long term (current) use of insulin; Z79.85 Long-term (current) use of injectable non-insulin antidiabetic drugs | CPT/HCPCS: 99213 ==

== ENCOUNTER 2025-05-18 13:21 | Emergency (ER) | payer MEDICARE, OTHER, MEDICAID, SELFPAY ==
[2025-05-18 13:22] VITALS: BP 148/78; PULSE 72; RESP 17; TEMP 37; O2SAT 98; BMI 27.4
--- NOTE | 2025-05-18 13:23 | CT_ITS ---
WS: [id number] CT CERVICAL SPINE HISTORY: Trauma TECHNIQUE: Contiguous 2.0 mm axial imaging performed through the entire cervical spine. Sagittal and coronal reformats also performed. All CT scans at [facility] use at least one of these dose optimization techniques: automated exposure control; mA and/or kV adjustment per patient size (includes targeted exams where dose is matched to clinical indication); or iterative reconstruction. DLP: 1424.41 mGy.cm COMPARISON: 04/14/2020 Straightening of the normal cervical lordosis. Anterior cervical fusion from C5- C7. The facet joints are normally aligned. Facet joints are narrowed throughout the cervical spine. Lateral masses of C1 and C2 are aligned. The odontoid is intact. C2-C3: LEFT facet joint arthritis. C3-C4: Bilateral facet joint arthropathy. C4-C5: Mild bilateral facet arthritis and osteophytic ridging. Central disc protrusion. Mild central with moderate foraminal stenosis. C5-C6: Osteophytic ridging with RIGHT foraminal stenosis. C6-C7: Osteophytic ridging. Mild foraminal stenosis. C7-T1: Normal. Lung apices are clear. CT/CT cervical spin wo con* [id number] IMPRESSION: 1. No acute thoracic spine fracture identified. 2. Multilevel facet joint arthritis.
--- NOTE | 2025-05-18 13:23 | CT_ITS ---
WS: [id number] CT HEAD NONCONTRAST HISTORY: Trauma TECHNIQUE: Contiguous axial imaging performed through the brain. Bone and soft tissue windows. Sagittal and coronal reformats reviewed. All CT scans at [facility] use at least one of these dose optimization techniques: automated exposure control; mA and/or kV adjustment per patient size (includes targeted exams where dose is matched to clinical indication); or iterative reconstruction. DLP: 1424.41 mGy.cm COMPARISON: 04/09/2025 No acute intracranial hemorrhage, midline shift or mass effect. Mild atrophy and moderate small vessel ischemic changes. No large territory infarct. Ventricles: Normal size with no hydrocephalus. No inferior displacement the cerebellar tonsils. Paranasal sinuses: As visualized are clear. Mastoid air cells: Well pneumatized. Calvarium and scalp: Hyperostosis frontalis interna. CT/CT head wo con* [id number] IMPRESSION: 1. No acute intracranial hemorrhage or edema. 2. Mild cerebral and cerebellar atrophy with moderate small vessel disease.
--- OUTSIDE RECORDS SUMMARY | 2025-05-18 13:26 | XMS_ITS | Clinical Summary ---
Author Organization [facility] Address [address] 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 Gender Identity Not on file Sexual Orientation [...] Screening 08/28/2026 Medical Devices Implanted Type Area Coach Mechanic Device Identifier Shelf Expiration Date Model / Serial / Lot Cement Palacos Sgl [id number] - [id number] Implanted:Qty: 1 on 04/02/2013 Cement Left: Knee [employer] 11/05/2017 [id number] 0- / / [id number] Bearing Ruthie Mathew Md Sz 5 [id number] - [id number] Implanted:Qty: 1 on 04/02/2013 Knee Left: Knee [employer] 07/08/2016 [id number] / / [id number] Tray Tib [place] Uni Szb Lm [id number] - [id number] Implanted:Qty: 1 on 04/02/2013 Knee Left: Knee [employer] 07/08/2022 [id number] / / [id number] [place] Partial Knee System, Cemented Twin Pegged Femoral Implanted:Qty: 1 on 04/02/2013 by Jean-Paul Kirkland MD Left: Knee [employer] 10/06/2022 [id number] / / [id number] Insurance MEDICARE PART A AND B [facility] Care Teams Truss Designer Relationship Specialty Start Date End Date Jayesh Krueger MD [address] [place] [address] PCP - General 10/21/20
--- OUTSIDE RECORDS SUMMARY | 2025-05-18 13:26 | XMS_ITS | Data Portability ---
Author Organization [facility] Demetrius Car[facility] Rowan Mariano [facility] Address [address] [place] [address] Assessment No assessment recorded. Plan of Treatment [...] By Organization Details Last Modified Time 02/18/2025 [id number] Sugars consistently over 200. Was on ozempic at home. Discussed bringing ozempic in from home and she agrees. Will also d/c glimepride and start tresiba 15 units at hs. [email or web address] Not available 02/19/2025 13:24:46 02/23/2025 [id number] Discussed possib ly related to medications vs recent TIA's vs electrolyte abnormalities. Labs pending. [email or web address] Not available 02/23/2025 17:12:35 03/04/2025 [id number] Agrees to stop pain pill and continue relaxant. Discussed goals for hours of sleep decrease with age. encouraged to avoid naps, stay active during the day. Currently on sleep aid, will give her time to adjust behaviors. f/u soon. [email or web address] Not available 03/04/2025 15:28:13 03/11/2025 [id number] More clear heade d as she is no longer taking narcotics but continues to have shoulder pain Plan for injection on Sunday. [email or web address] Not available 03/11/2025 15:21:48 03/16/2025 [id number] Right shoulder injected with 1ml betamethasone and 1ml lidocaine without issues. Tolerated injection well. [email or web address] Not available 03/16/2025 14:34:37 Reason for Referral None Reported. Problems Name Problem SNOMED Code Status Onset Date Resolution Date Notes Provider Name and Address Organization Details Recorded Time Benign essential hypertens ion 0876623 Active 2021 Hypertens ion; 2 4:38PM by Desiree Rodrigez, Office Visit; Promoted; acuity set as *; Not Available [facility] 3 03:10:42 Transient ischemic attack due to embolism 379018896 Active 2021 TIA x6; 2 4:38PM by Desiree Rodrigez, Office Visit; Promoted; acuity set as *; Not Available [facility] 3 03:10:42 Gallbladd er endoscopy Active 2021 Gallbladd er removed; 2 4:38PM by Desiree Rodrigez, Office Visit; Promoted; acuity set as *; Not Available [facility] 3 03:10:42 Total hysterect rupali Active 2021 Hysterect rupali, Total; 2 4:38PM by Desiree Rodrigez, Office Visit; Promoted; acuity set as *; Not Available [facility] 3 03:10:42 Hyperlipi demia 11287988 Active 2021 Hyperlipi demia; 2 4:38PM by Desiree Rodrigez, Office Visit; Promoted; acuity set as *; Not Available [facility] 3 03:10:42 Post-disc harge follow-up 302638431 Active 2024 BENITA stein [facility], L[facility] 5 17:28:24 History of amputatio n of left great toe 38587054058 139656 Active 2024 BENITA stein [facility], [facility] 5 17:28:25 Osteomyel itis of forefoot 577991745 [facility] 17:28:26 Chronic atrial fibrillat ion 836628372 Active 2024 [facility] 17:28:27 Hyperglyc emia due to type 2 diabetes mellitus 75639383029 9109 Active 2024 [facility] 13:23:45 Problem Notes None recorded. Medical Equipment None Reported. Allergies Allergen ID Allergen Name Allergen Category Reaction Reaction Severity Criticality Documentation Date Start Date Code Code System Note Provider Name and Address Organization Details Recorded Time 66417 Zithromax medicatio n hives Not available Not available 02/03/2023 4 RxNorm React ion: Hives ; Comme nt: Recor ded 03/30 4:38P M by Bruce Rodrigez, Offic e Visit ; Promo rodo; Signi lisa ce: *; ; Not Available [facility] 3 02:28:22 68229 Zestril medicatio n hives Not available Not available 02/03/2023 2 RxNorm React ion: Hives ; Comme nt: Recor ded 03/30 4:38P M by Bruce Rodrigez Offic e Visit ; Promo rodo; Amyi lisa ce: *; ; Not Available [facility] 3 02:28:23 Medications Name Sig [...] Address Organization Details Last Updated DateTime 5 62188.8 1 g 90 /min 18 /min 97.3 [degF] 95 % 95 % 131/79 mm[Hg] [facility] 5 13:21:29 Date Recorded Body weight Heart rate Respiratory rate Body temperature Oxygen saturation Oxygen saturation in Arterial blood by Pulse oximetry Systolic And Diastolic Provider Name and Address Organization Details Last Updated DateTime 5 51403.8 1 g 86 /min 18 /min 97.4 [degF] 97 % 97 % 128/68 mm[Hg] [facility] 5 16:51:59 Date Recorded Body weight Heart rate Respiratory rate Body temperature Oxygen saturation Oxygen saturation in Arterial blood by Pulse oximetry Systolic And Diastolic Provider Name and Address Organization Details Last Updated DateTime 5 01902.8 1 g 80 /min 18 /min 97.4 [degF] 96 % 96 % 115/67 mm[Hg] [facility] 5 15:25:05 Date Recorded Body weight Heart rate Respiratory rate Body temperature Oxygen saturation Oxygen saturation in Arterial blood by Pulse oximetry Systolic And Diastolic Provider Name and Address Organization Details Last Updated DateTime 5 86753.8 9 g 84 /min 18 /min 97.3 [degF] 91 % 91 % 108/80 mm[Hg] BENITA [facility] 5 14:49:16 Date Recorded Body weight Heart rate Respiratory rate Body temperature Oxygen saturation Oxygen saturation in Arterial blood by Pulse oximetry Systolic And Diastolic Provider Name and Address Organization Details Last Updated DateTime 5 08945.8 9 g 76 /min 22 /min 97.3 [degF] 94 % 94 % 139/80 mm[Hg] B[facility]ITA [facility] 5 14:31:19 Social History None recorded. Functional Status None recorded. Mental Status None recorded. Family History Nothing Reported. Medical History No medical history recorded. Gynecological HistoryNo gynecological history recorded. Obstetrics History GPAL:G 0 P 0 0 0 0 Immunizations Vaccine Type Date Status Note Provider Nam e and Address Organization Details Recorded Time Influenza, split virus, quadrivalent, PF 8 completed Not Available [facility] 03/16/2025 13:29:41 Influenza, split virus, quadrivalent, PF 2 completed Not Available [facility] 03/16/2025 13:29:41 Influenza, high-dose, quadrivalent, PF 3 completed Not Available [facility] 03/16/2025 13:29:41 zoster recombinant 3 completed Not Available [facility] 03/16/2025 13:29:41 COVID-19, mRNA, LNP-S, PF, 50 mcg/0.5 mL 3 completed Not Available [facility] 03/16/2025 13:29:41 Influenza, high-dose, trivalent, PF 4 completed Not Available [facility] 03/16/2025 13:29:41 COVID-19, mRNA, LNP-S, PF, 50 mcg/0.5 mL 4 completed Not Available [facility] 03/16/2025 13:29:41 Td(adult) unspecified formulation 2 completed Not Available [facility] 02/03/2023 02:27:32 Past Encounters Encounter ID Performer Location Encounter Start Date Encounter Closed Date Diagnosis/Indication Diagnosis SNOMED-CT Code Diagnosis ICD10 Code Diagnosis IMO Codes Diagnosis Note [id number] Darryn Cardoso DO [facility] ([facility]) [address] [place] [address] 02/11/2025 13:10:08 02/17/2025 12:06:33 Post-discharge follow-up 038198533 Z09 414573 History of amputation of left great toe 1456097387 6200288 Z89.412 55299503 Osteomyeli tis of forefoot 480959543 M86.9 6752901755 Chronic at rial fibrillation 761212015 I48.20 [id number] Darryn Cardoso DO [facility]) [address] [place], [place] [address] 02/18/2025 12:58:33 02/23/2025 11:38:39 History of amputation of left great toe 0859826014 9724700 Z89.412 11861030 Benign ess ential hypertension 8556125 I10 Hyperglyce kedar due to type 2 diabetes mellitus 6377693766 59345 E11.65 08709501 [id number] Darryn Cardoso DO [facility] ([facility]) [address] [place] [address] 02/23/2025 13:36:40 02/24/2025 16:47:22 Tremor 54801279 R25.1 [id number] Darryn Cardoso DO [facility]) [address] [place], [place] [address] 03/04/2025 14:41:47 03/10/2025 11:52:18 Primary insomnia 1755760 F51.01 66548 Chronic pain 23584268 G8 9.29 [id number] Darryn Cardoso DO [facility]) [address] [place] [address] 03/11/2025 12:36:43 03/13/2025 11:01:12 Tendinitis of right shoulder 2261202278 832362 M77.8 [id number] Darryn Cardoso DO [facility]) [address] [place] [address] 03/16/2025 13:29:19 03/17/2025 14:16:26 Biceps tendinitis 454434947 M75.21 [id number] Health Concerns Section Related Observation LastModified by Organization Detai ls LastModified Time None Recorded Concern Status LastModified by Organization Details LastModified Time None Recorded Advance Directives Directive None Recorded Payers Insurance Date Sequence Insurance Name Policy Number Policy Swain Covered Member ID Swain Member ID Guarantor Name 03/25/2025 2 UNSPECIFIED REMIT PAYOR Kaylee Butler Biesen 03/17/2025 2 () Kaylee Butler Biesen [id number] Kaylee S Biesen 02/11/2025 1 *SELF PAY* Robert Butler Biesen 03/11/2025 [place] - [facility] (MEDICARE) Kaylee Butler Biesen [id number] Kaylee Butler Biesen 03/11/2025 1 [place] Kaylee Butler Biesen [id number] Kaylee Butler Biesen Notes Date Note [...] taking ozempic at home. Darryn Cardoso DO [address] [place] [address], [phone], [facility] [place] [facility], [place] 02/22/2025 14:33:07 5 text/html Care Management - Atrial FibrillationReported by PatientCare ManagementFor prognosis, patient reportsexpected outcome: improve. For duration, patient reportsless than 12 months but expected to become chronic. For medications, patient reportscompliant with medication.ROS as noted in the HPI c/o tremor in hands. Darryn Cardoso DO [address] [place] [address], [phone], [facility] [place] [facility] 02/23/2025 17:12:48 5 text/html Care Management [...] pill she becomes confused. Darryn DO Walker [address] [place] [address], [phone], [facility] [place] [facility] 03/08/2025 13:57:25 5 text/html Care Management - Atrial FibrillationReported by PatientCare ManagementFor prognosis, patient reportsexpected outcome: improve. For duration, patient reportsless than 12 months but expected to become chronic. For medications, patient reportscompliant with medication.ROS as noted in the HPI reports continued pain in shoulder. thinking improved since stopping norco. Darryn DO Walker [address] [place] [address], [phone], [facility] [place] [facility] 03/11/2025 15:22:33 5 text/html Care Management - Atrial FibrillationReported by PatientCare ManagementFor prognosis, patient reportsexpected outcome: improve. For duration, patient reportsless than 12 months but expected to become chronic. For medications, patient reportscompliant with medication.ROS as noted in the HPI joint injection Darryn DO Walker [address] [place] [address], [phone], [facility] [place] [facility] 03/16/2025 15:02:41 OBGyn Episode No OBEpisode recorded.
--- NOTE | 2025-05-18 13:29 | W.ED.FALL ---
HPI - Fall General: Chief Complaint: Fall Stated Complaint: fall - back of head pain Time Seen by Provider: 05/18/25 13:22 History of Present Illness: 69-year-old female presents emergency room she fell landing backwards hit her head she is complaining of neck and back pain there is no loss of consciousness no vomiting. Ground-level mechanical fall. She has had multiple falls recently she has difficulty with balance. She had other falls x2 yesterday. No weakness no vision changes. Patient is diabetic. No recent medication changes. Associated symptoms-after fall: Denies abdominal pain, chest pain or neck pain Related Data Home Medications ?Medication ?Instructions ?Recorded ?Confirmed ascorbic acid 7.5 mg-vit E 7.5 1 tab PO DAILY@1000 11/12/20 05/14/25 unit-biotin 1,250 mcg chewable tablet (Hair,Skin,Nails with Biotin) multivitamin 1 tab PO DAILY@1000 11/12/20 05/14/25 cyanocobalamin (vitamin B-12) 1,000 mcg PO DAILY 01/03/23 05/14/25 1,000 mcg tablet (Vitamin B-12) gabapentin 100 mg capsule 100 mg PO BID 07/18/24 05/14/25 potassium chloride 20 mEq 20 meq PO .DAILY@10AM 07/18/24 05/14/25 tablet,extended release lamotrigine 200 mg tablet 200 mg PO BID 12/30/24 05/14/25 duloxetine 60 mg capsule,delayed 120 mg PO QAM 01/26/25 05/14/25 release fluoxetine 20 mg capsule 20 mg PO QAM 01/26/25 05/14/25 levothyroxine 200 mcg tablet 200 mcg PO .DAILY@10AM 01/26/25 05/14/25 omega 3-atw-bou-fish oil 1,200 mg 1 cap PO DAILY 01/30/25 05/14/25 (144 mg-216 mg) capsule (Fish Oil) diazepam 10 mg tablet 10 mg PO BID PRN Anxiety 04/10/25 05/14/25 Previous Rx's ?Medication ?Instructions ?Recorded insulin syringe-needle U-100 1 mL #100 ea 09/06/22 28 gauge x 1/2 (BD Insulin Syringe) Diabetic shoes #1 ea 04/11/23 blood-glucose meter #1 ea 06/12/23 blood sugar diagnostic (Blood #200 ea 06/15/23 Glucose Test strips) blood-glucose meter (Accu-Chek #1 ea 06/27/23 Guide Glucose Meter) blood sugar diagnostic (Accu-Chek #100 ea 07/26/23 Guide test strips) Diabetic Shoes with Inserts #1 ea 12/11/24 cam boot to right #1 ea 01/05/25 amiodarone 200 mg tablet (Pacerone) See Rx Instructions .Route 02/06/25 .COMPLEX #60 tabs amlodipine 10 mg tablet 10 mg PO DAILY #30 tabs 02/06/25 aspirin 81 mg tablet,delayed 81 mg PO DAILY #30 tabs 02/06/25 release glimepiride 4 mg tablet 2 mg (1/2 x 4 mg) PO BID #30 tabs 02/06/25 olanzapine 5 mg tablet 2.5 mg (1/2 x 5 mg) PO BID #30 tabs 02/06/25 quetiapine 25 mg tablet 25 mg PO BEDTIME #30 tabs 02/06/25 sennosides 8.6 mg-docusate sodium 1 tab PO BID PRN Constipation #30 02/06/25 50 mg tablet (Stool tabs Softener-Laxative) ciprofloxacin HCl 500 mg tablet 500 mg PO BID #14 tabs 04/24/25 (Cipro) hydrocodone 5 mg-acetaminophen 325 1 tab PO Q6H PRN pain #14 tabs 04/24/25 mg tablet albuterol sulfate 90 mcg/actuation 2 inh inhalation Q4H PRN shortness 04/27/25 aerosol inhaler of breath or wheezing #6.7 grams insulin syringe-needle U-100 1 mL #100 ea 05/08/25 31 gauge x 5/16 (TRUEplus Insulin) lancets (Accu-Chek Softclix #200 ea 05/08/25 Lancets) semaglutide 0.25 mg or 0.5 mg (2 0.5 mg (0.736 mL) SUBCUT .weekly 05/08/25 mg/3 mL) subcutaneous pen injector #3 mL (Ozempic) Allergies Allergy/AdvReac Type Severity Reaction Status Date / Time azithromycin (From Zithromax) Allergy rash Verified 05/14/25 12:41 cetirizine (From Zyrtec) Allergy rash Verified 05/14/25 12:41 lisinopril (From Zestril) Allergy ALGY-Swell Verified 05/14/25 12:41 Lip/Tongue/Throat metformin AdvReac Intermediate diarrhea Verified 05/14/25 12:41 topiramate (From Topamax) AdvReac Intermediate diarrhea Verified 05/14/25 12:41 Review of Systems Const: Denies: fever(s) or chills Card: Denies: chest pain Resp: Denies: dyspnea GI: Denies: abdominal pain : Denies: dysuria, urinary frequency or urinary urgency Musc: Denies: neck pain or back pain Skin/Breast: Denies: rash PFSH ED PFSH: Medical History 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 Left shoulder pain Hypothyroid Hyperlipidemia Hypertension Diabetes mellitus Suspected COVID-19 virus infection Hypothyroidism Chronic diarrhea Tension headache, chronic CVA (cerebral vascular accident) TIA (transient ischemic attack) History of aphasia Hx of kidney disease Hx of type 2 diabetes mellitus History of anemia History of GI bleed History of hypothyroidism Hx of primary hypertension History of bipolar disorder History of anxiety History of depression History of posttraumatic stress disorder (PTSD) Surgical History Hx of appendectomy History of back surgery Hx of cholecystectomy Hx of hysterectomy Hx of neck surgery Social History Smoking and tobacco/nicotine status: never used tobacco/nicotine Alcohol intake: current Alcohol intake frequency: holidays/special occasions only Substance/Drug Use: never Physical Exam Const: COMMON NORMALS: no acute distress GENERAL APPEARANCE: cooperative and comfortable ORIENTATION/CONSCIOUSNESS: Yes awake, Yes oriented to person, Yes oriented to place and Yes oriented to time HENMT: COMMON NORMALS: normocephalic, atraumatic and hearing grossly normal bilaterally HEAD & SCALP: normocephalic and atraumatic Eye: COMMON NORMALS: Equal, round and reactive pupils present, EOMs intact bilaterally, conjunctivae normal and no scleral icterus CONJUNCTIVA: Yes conjunctivae normal PUPIL: Yes Equal, round and reactive pupils present Neck/C-Spine: COMMON NORMALS: full ROM, no lymphadenopathy, supple and no JVD Resp: COMMON NORMALS: normal respiratory effort, No retractions, No use of accessory muscles and clear to auscultation bilaterally AUSCULTATION: clear to auscultation bilaterally Cardio: COMMON NORMALS: no JVD, regular rate, regular rhythm and No murmurs present (Cardio) RATE: regular rate RHYTHM: regular rhythm GI: COMMON NORMALS: Soft to palpation and No hepatosplenomegaly present AUSCULTATION: Yes normoactive bowel sounds PALPATION: Yes Soft to palpation, No Tenderness to palpation present (GI), No Guarding due to palpation present (GI) and Yes No hepatosplenomegaly present Extremity: COMMON NORMALS: normal to inspection, capillary refill normal, no clubbing, cyanosis or edema, no calf tenderness and no pedal edema Neuro: SENSORIUM/ORIENTATION: Yes oriented to person, Yes oriented to place and Yes oriented to time Skin: COMMON NORMALS: no rashes or lesions noted GENERAL SKIN EXAM: no rashes or lesions noted Course Vital Signs: Vital signs: Vital Signs Temperature 98.6 F 05/18/25 13:22 Pulse Rate 72 05/18/25 13:22 Respiratory Rate 17 05/18/25 13:22 Blood Pressure 148/78 05/18/25 13:22 Pulse Oximetry 98 05/18/25 13:22 Oxygen Delivery Me thod Room Air 05/18/25 13:22 MDM - Fall Medical Decision Making CT head and neck negative ambulation without difficulty. Patient is hyperglycemic (Accu-Chek 360) but has chronically been so recommend that she follow-up with her primary care doctor further evaluate for blood sugar control. Reviewed imaging findings with the patient. Lab Data Radiology Impressions Cervical Spine CT 05/18/25 13:23 IMPRESSION: 1. No acute thoracic spine fracture identified. 2. Multilevel facet joint arthritis. Head CT 05/18/25 13:23 IMPRESSION: 1. No acute intracranial hemorrhage or edema. 2. Mild cerebral and cerebellar atrophy with moderate small vessel disease. Laboratory Results POC Glucose 360 mg/dL (70-110) H 05/18/25 14:20 All radiology interpretation(s) finalized by discharge EKG Data EKG 1: I personally reviewed and interpreted this EKG as follows: Interpretation: EKG 05/18/2025 1427 sinus rhythm rate of 72. [place] 197 QTc [address] changes no ST elevation or depression. Compared to EKG 04/27/2025 10:12 AM no significant change Discharge Plan Discharge Patient Disposition: Home Clinical Impression: Fall, Closed head injury, Neck pain Condition: Stable Prescriptions: No Action (DME) cam boot to right See Rx Instructions .Route .MEDSUPPLY Qty: 1 0RF Rx Instructions: As directed lamotrigine 200 mg tablet 200 mg PO BID (DME) Diabetic shoes See Rx Instructions .Route .MEDSUPPLY Qty: 1 0RF Rx Instructions: Heel lift and insoles. Last HgbA1C 5.7 on 02/01. (DME) Diabetic Shoes with Inserts See Rx Instructions .Route .MEDSUPPLY Qty: 1 0RF Rx Instructions: As directed (DME) insulin syringe-needle U-100 [BD Insulin Syringe] 1 mL 28 gauge x 1/2 syringe See Rx Instructions .Route Qty: 100 11RF Rx Instructions: As directed (DME) blood-glucose meter Misc See Rx Instructions .MEDSUPPLY Qty: 1 0RF Rx Instructions: Check TID (DME) Blood Glucose Test Strip See Rx Instructions .MEDSUPPLY Qty: 200 12RF Rx Instructions: Use with glucometer to check blood sugar three times a day (DME) blood-glucose meter [Accu-Chek Guide Glucose Meter] Misc See Rx Instructions .Route Qty: 1 0RF Rx Instructions: As directed (DME) Accu-Chek Guide test strips Strip See Rx Instructions .Route Qty: 100 11RF Rx Instructions: check TID (DME) insulin syringe-needle U-100 [TRUEplus Insulin] 1 mL 31 gauge x 5/16 syringe See Rx Instructions .ROUTE .COMPLEX Qty: 100 3RF Dose Instruction: TO USE WITH LANTUS Rx Instructions: TO USE WITH LANTUS (DME) lancets [Accu-Chek Softclix Lancets] Misc See Rx Instructions .Route Qty: 200 11RF Rx Instructions: use as directed three times a day Ozempic 0.25 mg or 0.5 mg (2 mg/3 mL) pen injector 0.5 mg SUBCUT .weekly Qty: 3 11RF Rx Instructions: Sunday multivitamin Tablet 1 tab PO DAILY@1000 Hair, Skin, Nails with Biotin 7.5-7.5-1,250 mg-unit-mcg Tablet,Chewable 1 tab PO DAILY@1000 cyanocobalamin (vitamin B-12) [Vitamin B-12] 1,000 mcg Tablet 1,000 mcg PO DAILY diazepam 10 mg tablet 10 mg PO BID PRN (Reason: Anxiety) hydrocodone-acetaminophen 5-325 mg tablet 1 tab PO Q6H PRN (Reason: pain) Qty: 14 0RF ciprofloxacin HCl [Cipro] 500 mg tablet 500 mg PO BID Qty: 14 0RF gabapentin 100 mg capsule 100 mg PO BID potassium chloride 20 mEq tablet extended release 20 meq PO .DAILY@10AM fluoxetine 20 mg capsule 20 mg PO QAM duloxetine 60 mg capsule,delayed release(DR/EC) 120 mg PO QAM levothyroxine 200 mcg tablet 200 mcg PO .DAILY@10AM omega 8-dml-gxb-fish oil [Fish Oil] 1,200 (144-216) mg Capsule 1 cap PO DAILY amiodarone [Pacerone] 200 mg Tablet See Rx Instructions .ROUTE .COMPLEX Qty: 60 0RF Rx Instructions: Take 400 mg by mouth daily for 7 days then reduce dose to 200 mg daily. aspirin 81 mg Tablet,Delayed Release (Dr/Ec) 81 mg PO DAILY Qty: 30 0RF glimepiride 4 mg tablet 2 mg PO BID Qty: 30 0RF quetiapine 25 mg Tablet 25 mg PO BEDTIME Qty: 30 0RF sennosides-docusate sodium [Stool Softener-Laxative] 8.6-50 mg Tablet 1 tab PO BID PRN (Reason: Constipation) Qty: 30 0RF olanzapine 5 mg Tablet 2.5 mg PO BID Qty: 30 0RF amlodipine 10 mg tablet 10 mg PO DAILY Qty: 30 0RF albuterol sulfate 90 mcg/actuation HFA aerosol inhaler 2 inh inhalation Q4H PRN (Reason: shortness of breath or wheezing) Qty: 6.7 0RF Rx Instructions: Please provide patient with a spacer Discharge Orders: Discharge ED (Routine); Ordered 05/18/25 Ordered By: Melvin Cabrera Referrals: Carter Yusuf MD [Primary Care Provider, Family Practice] Patient Instructions: Opioid Safety, Pain Management, Patient Portal & Brianna Instructions Activity Restrictions/Additional Instructions: [facility] needs today. It is very important that you follow up as instructed or that you return to the Emergency Department should you have concerns or if your condition changes or worsens in any way. Emergency department visits are focused on emergent conditions, in some cases you may require further evaluation on an outpatient basis. You were seen in the emergency room after a fall CT of your head and neck were negative. The rest of your exam was normal. Will discharge you home. Follow-up with your primary care doctor. (Please note that included in your discharge packet is information concerning opioid safety and pain management. This information is given to all patients were discharged from the ER regardless of their discharge diagnosis or the medicines they usually take or are prescribed.) Print Language: Tajik Coding Level of Care Code ED Wine Steward for Jaret Deal
[2025-05-18 14:34] VITALS: BP 148/78; PULSE 69; O2SAT 95
--- NOTE | 2025-05-18 14:35 | ECG_ITS ---
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 Measurements Intervals [place] Rate: 72 P: 69 MI: 197 QRS: 90 QRSD: 105 T: 67 QT: 393 QTc: 432 Interpretive Statements SINUS RHYTHM POSSIBLE LEFT ATRIAL ENLARGEMENT [-0.1mV P-WAVE IN V1/V2] Compared to ECG 04/27/2025 10:12:58 No significant changes Electronically Signed On 05-18-2025 18:10:47 THREAD ROLLER by Barrie Urbina M.D. [email or web address]
== END 2025-05-18 14:47 | disposition home or self-care (01) ==
PROVIDERS: Emergency Provider Family Medicine; PCP Family Medicine
DX: S09.8XXA Other specified injuries of head, initial encounter (principal); M54.2 Cervicalgia; Z79.82 Long term (current) use of aspirin; E78.5 Hyperlipidemia, unspecified; I10 Essential (primary) hypertension; E11.9 Type 2 diabetes mellitus without complications; Z86.73 Personal history of transient ischemic attack (TIA), and cerebral infarction without residual deficits; W19.XXXA Unspecified fall, initial encounter
CPT/HCPCS: 36416; 70450; 72125; 82962; 93005; 99284

== ENCOUNTER 2025-05-19 12:16 | Inpatient (IN) | payer MEDICARE, OTHER, MEDICAID, SELFPAY ==
[2025-05-19] VITALS (62 sets, daily range): BP systolic 75–173; BP diastolic 49–117; PULSE 64–88; RESP 14–20; TEMP 36.6; O2SAT 89–100; BMI 31.3
--- NOTE | 2025-05-19 12:21 | XRR_ITS ---
PROCEDURE INFORMATION: Exam: XR Chest Exam date and time: 05/19/2025 1:13 PM Age: 69 years old Clinical indication: Other: Weakness TECHNIQUE: Imaging protocol: Radiologic exam of the chest. Views: 1 view. COMPARISON: CR XR chest 1V portable [id number] 04/27/2025 9:15 AM FINDINGS: Tubes, catheters and devices: Tip of the endotracheal tube projects about 2.7 cm above the jadon. Lungs: Diminished lung volumes with bronchovascular crowding. Some central vascular prominence with interstitial haziness. Pleural spaces: Unremarkable. No pleural effusion. No pneumothorax. Heart/Mediastinum: Suboptimally evaluated. Bones/joints: Cervical spinal fusion and right shoulder arthroplasty hardware are imaged. Old rib fractures. Soft tissues: Upper abdominal surgical clips. Other findings: The patient is rotated to the left. XR/XR chest 1V portable [id number] IMPRESSION: Satisfactorily positioned endotracheal tube. Interstitial and slight vascular prominence; correlate for positive fluid balance.
--- OUTSIDE RECORDS SUMMARY | 2025-05-19 12:25 | XMS_ITS | Encounter Summary ---
Author Organization [facility] Address [address] Attn: [place] [address] Care Team Providers Care Black Leather Buffer Name Role Phone Jayesh Krueger MD Primary Care Provider [phone] Encounter Details Date Type Department Care Team (Late st Contact Info) Description 01/25/2000 Outpatient Historical Thomas Dailey MD [address] 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
--- OUTSIDE RECORDS SUMMARY | 2025-05-19 12:25 | XMS_ITS | Encounter Summary ---
Author Organization [facility] Address [address] [place] [address] Care Team Providers Care Ostrich Farmer Name Role Phone Jayesh Krueger MD Primary Care Provider [phone] Encounter Details Date Type Department Care Team (Latest Contact Info) Description 12/31/2003 Outpatient Historical [facility] Endocrinology-[facility] [place] [address] [place] [address] Chin Patel MD NO ADDRESS ON FILE DIABETES UNCOMPL ADULT-TYPE II (CMS/[facility]) (Primary Dx); HYPERLIPIDEMIA NEC/NOS; HYPERTENSION NOS; HYPOTHYROIDISM NOS Social History Tobacco Use Types Packs/Day Years Used Date Smoking Tobacco: Never Assessed Comments Unknown Sex and Gender Information Value Date Recorded Sex Assigned at Not on file 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 Gender Identity Not on file Sexual Orientation Not on file documented as of this encounter Plan of Treatment Not on file documented as of this encounter Visit Diagnoses Diagnosis Type II or unspecified type diabetes mellitus without mention of complication, not stated as uncontrolled- Primary Other and unspecified hyperlipidemia Unspecified essential hypertension Unspecified hypothyroidism documented in this encounter Care Teams Ostrich Farmer Relationship Specialty Start Date End Date Jayesh Krueger MD [address] [place] [address] PCP - General Internal Medicine 12/19/16 documented as of this encounter
--- OUTSIDE RECORDS SUMMARY | 2025-05-19 12:25 | XMS_ITS | Encounter Summary ---
Author Organization [facility] Address [address] [place] [address] Care Team Providers Care Pad Machine Operator Name Role Phone Jayesh Krueger MD Primary Care Provider [phone] Encounter Details Date Type Department Care Team (Latest Contact Info) Description 12/25/2002 Outpatient Historical [facility] [address] [place] [place] [address] Thomas Dailey MD [address] [place] [address] PREOP CARDIOVASC EXAM (Primary Dx) Social History Tobacco Use Types Packs/Day Years Used Date Smoking Tobacco: Never Assessed Comments Unknown Sex and Gender Information Value Date Recorded Sex Assigned at Not on file 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
--- OUTSIDE RECORDS SUMMARY | 2025-05-19 12:25 | XMS_ITS | Encounter Summary ---
Author Organization [facility] Address [address] [place] [address] Care Team Providers Care Acetone Button Paster Name Role Phone Jayesh Krueger MD Primary Care Provider [phone] Encounter Details Date Type Department Care Team (Latest Contact Info) Description 07/05/2005 Outpatient [facility] Podiatry-Rajesh Cleary [place] [address] [place] [address] Anthony Andrews, DPM [address] [place] [address] OTHER HAMMER TOE (Primary Dx); PERIPH VASCULAR DIS NOS; DIABETES TYPE II W NEURO MANIFESTATIONS (CMS/HCC) Social History Tobacco Use Types Packs/Day Years Used Date Smoking Tobacco: Never Assessed Comments Unknown Sex and Gender Information Value Date Recorded Sex Assigned at Not on file Legal Sex Female 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
--- OUTSIDE RECORDS SUMMARY | 2025-05-19 12:25 | XMS_ITS | Clinical Summary ---
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 Gender Identity Not on file Sexual Orientation Not on file Occupation Industry Job Start Date Job End Date Not on file Not on file Not on file Not on file Last Filed Vital Signs Vital Sign Reading Time Taken Comments Blood Pressure 136/76 04/30/2020 8:37 AM CDT Pulse 72 04/30/2020 8:37 AM CDT Temperature 36.4 C (97.5 F) 06/10/2013 9:02 AM DRILLING FIELD PROFESSIONAL Respiratory Rate 11 06/10/2013 4:00 PM DRILLING FIELD PROFESSIONAL Oxygen Saturation 95% 06/10/2013 4:00 PM DRILLING FIELD PROFESSIONAL Inhaled Oxygen Concentration - - Weight 85.3 [...] 2025 05/12/2013 Medical Devices Implanted Type Area Brokerage Branch Manager Device Identifier Shelf Expiration Date Model / Serial / Lot Cement Palacos Sgl [id number] - [id number] Implanted:Qty: 1 on 04/02/2013 at [facility] Cement Left: Knee DEXTER [employer] 11/05/2017 00-1112-14 0- / / [id number] Tray Tib [place] Uni Szb Lm [id number] - [id number] Implanted:Qty: 1 on 04/02/2013 at [facility] Knee Left: Knee [employer] 07/08/2022 [id number] / / [id number] Bearing Ruthie Mathew Md Sz 5 [id number] - [id number] Implanted:Qty: 1 on 04/02/2013 at [facility] Knee Left: Knee [employer] 07/08/2016 [id number] / / [id number] [place] Partial Knee System, Cemented Twin Pegged Femoral Implanted:Qty: 1 on 04/02/2013 by Jean-Paul Kirkland MD at [facility] Left: Knee [employer] 10/06/2022 [id number] / / [id number] Procedures Procedure Name Priority Date/Time Associated Diagnosis [...] 9:15 AM CDT) MICROALBUMIN, URINE 0.2 mg/dL [facility] Comment: Unable to flag abnormal result(s), please refer to reference range(s) below: Reference Range: Not established Creatinine, Urine 37.9 20 - 320 mg/dL [facility] MICROALBUMIN/CREA T RATIO, UR 5 <30.0 mcg/mg Cr [facility] Comment: The ADA (Diabetes Care 26: S94-S98, 2003) defines abnormalities in albumin excretion as follows: Category Result (mcg/mg creatinine) Normal <30 Microalbuminuria 30-299 Clinical albuminuria > or = 300 The ADA recommends that at least two of three specimens collected within a 3-6 month period be abnormal before considering a patient to be within a diagnostic category. Test Performed by [employer] [employer] [facility], [address] [place] [address] Leonel Jarquin M.D., Ph.D., Director of Laboratories , CLIA [id number] 12/13/2009 9:15 AM CDT 12/13/2009 10:51 AM CDT Comment:URINE us Brice VARGAS URINE ORDERABLES Final Resul t Performing Organization Address [facility] Phone Number INTERFACE SYSTEM Refer to clinic/hospital department [facility] CLIA# [id number] [facility] [place] [address] * (ABNORMAL) HEMOGLOBIN A1C (12/13/2009 9:12 AM CDT) HEMOGLOBIN A1C 7.7(H) 4.0 - 6.0 %A1C [facility] Blood specimen (specimen) 12/13/2009 9:12 AM CDT 12/13/2009 9:26 AM CDT us Brice VARGAS CHEMISTRY ORDERABLES Final R esult Performing Organization Address [facility] Phone Number INTERFACE SYSTEM Refer to clinic/hospital department [facility] CLIA# [id number] [address] [place] [address] * (ABNORMAL) LIPID PANEL (12/13/2009 9:12 AM CDT) CHOLESTEROL 121 0 - 200 mg/dL [facility] TRIGLYCERIDE 291(H) 0 - 150 mg/dL [facility] HDL 16(L) 40 - 60 mg/dL [facility] LDL CALCULATED 47 0 - 100 mg/dL [facility] Comment: Calculated LDL Reference: <100 Optimal 100-129 Near Optimal 130-159 Borderline High >160 High Risk CALCULATED TOTAL CHOLESTEROL TO HDL RATIO 7.56(H) 3.27 - 4.44 [facility] Blood specimen (specimen) 12/13/2009 9:12 AM CDT 12/13/2009 9:26 AM CDT Brice VARGAS CHEMISTRY ORDERABLES Edited INTERFACE SYSTEM Refer to clinic/hospital department [facility] CLIA# [id number] [facility] [place] [address] from Last 3 Months or Most Recently Relevant to [place] [address] MEDICARE PART A AND B [email or web address] Advance Directives For more information, please contact: [phone] * Full Code (Latest Code Status on File) Date Activated Date Inactivated Comments 04/02/2013 10:34 AM 04/03/2013 5:21 PM * Full Code Date Activated Date Inactivated Comments 04/02/2013 6:45 AM 04/02/2013 10:34 AM Care Teams Mine Wirer Relationship Specialty Start Date End Date Jayesh Krueger MD [address] [place] [address] PCP - General Internal Medicine 12/19/16
--- OUTSIDE RECORDS SUMMARY | 2025-05-19 12:25 | XMS_ITS | Encounter Summary ---
Author Organization [facility] Address [address] [place] [address] Care Team Providers Care Journalism Professor Name Role Phone Jayesh Krueger MD Primary Care Provider Encounter Details Date Type Department Care Team (Late st Contact Info) Description 01/12/2010 Ancillary Orders [facility] Orthopedics[address] [place] [address] Jean-Paul Kirkland MD NO ADDRESS ON FILE Pain Social History Tobacco Use Types Packs/Day Years Used Date Smoking Tobacco: Never Alcohol Use Standard Drinks/Week Comments No 0 (1 standard drink = 0.6 oz pur e alcohol) Comments No Sex and Gender Information Value Date Recorded Sex Assigned at Not on file Legal Sex Female 5:34 AM DIESEL SERVICE JOURNEYMAN Gender Identity Not on file Sexual Orientation Not on file documented as of this encounter Plan of Treatment Not on file documented as of this encounter Results * XR KNEE 1 OR 2 VW LEFT (01/12/2010 11:48 AM CDT) Anatomical Region Laterality Modality Lower Extremity Computed Radiogr aphy Narrative 08/03/2011 9:33 AM DIESEL SERVICE JOURNEYMAN AP and lateral radiographs of both knees [...] pain documented in this encounter Care Teams Journalism Professor Relationship Specialty Start Date End Date Jayesh Krueger MD [address] [place] [address] PCP - General Internal Medicine 12/19/16 documented as of this encounter
--- OUTSIDE RECORDS SUMMARY | 2025-05-19 12:25 | XMS_ITS | Encounter Summary ---
Author Organization [facility] Address [address] [place] [address] Care Team Providers Care Religious Education Director Name Role Phone Jayesh Krueger MD Primary Care Provider [phone] Encounter Details Date Type Department Care Team (Latest Contact Info) Description 11/04/2004 Outpatient Historical [facility] End[facility]inology-[facility] [place] [address] [place] [address] Chin Patel MD NO ADDRESS ON FILE DIABETES MELLITUS TYPE II-UNCOMPL (CMS/HCC) (Primary Dx); HYPERLIPIDEMIA NEC/NOS; THYROTOX NOS NO CRISIS; HYPOTHYROIDISM NOS Social History Tobacco Use Types Packs/Day Years Used Date Smoking Tobacco: Never Assessed Comments Unknown Sex and Gender Information Value Date Recorded Sex Assigned at Not on file Legal Sex Female 5:34 AM MORTAR CARRIER Gender Identity Not on file Sexual Orientation [...] hypothyroidism documented in this encounter Care Teams Religious Education Director Relationship Specialty Start Date End Date Jayesh Krueegr MD [address] [place] [address] PCP - General Internal Medicine 12/19/16 documented as of this encounter
--- OUTSIDE RECORDS SUMMARY | 2025-05-19 12:25 | XMS_ITS | Encounter Summary ---
Author Organization [facility] Address [address] [facility] Attn: Epic Prelude ADT [place] [address] Care Team Providers Care Golf Sales Associate Name Role Phone Jayesh Krueger MD Primary Care Provider [phone] Encounter Details Date Type Department Care Team (Late st Contact Info) Description 07/09/2000 Outpatient Historical Non-Staff, Physician NO ADDRESS ON FILE Social History Tobacco Use Types Packs/Day Years Used Date Smoking Tobacco: Never Assessed Comments Unknown Sex and Gender Information Value Date Recorded Sex Assigned at Not on file Legal Sex Female 5:34 AM X RAY NURSE Gender Identity Not on file Sexual Orientation Not on file documented as of this encounter Plan of Treatment Not on file documented as of this encounter Visit Diagnoses Not on filedocumented in this encounter Care Teams Golf Sales Associate Relationship Specialty Start Date End Date Jayesh Krueger MD [address] [place] [address] PCP - General Internal Medicine 12/19/16 documented as of this encounter
--- OUTSIDE RECORDS SUMMARY | 2025-05-19 12:25 | XMS_ITS | Encounter Summary ---
Author Organization [facility] Address [address] [place] [address] Care Team Providers Care Respiratory Technician Name Role Phone Jayesh Krueger MD Primary Care Provider [phone] Encounter Details Date Type Department Care Team (Latest Contact Info) Description 11/27/2002 Outpatient Historical [facility] Imaging and Laboratory Services [address] [place] [id number] Thomas Dailey MD [address] [place] [address] DISC DIS NEC/NOS-LUMBAR (Primary Dx) Social History Tobacco Use Types Packs/Day Years Used Date Smoking Tobacco: Never Assessed Comments Unknown Sex and Gender Information Value Date Recorded Sex Assigned at Not on file Legal Sex Female 5:34 AM RN OUTPATIENT SURGERY Gender Identity Not on file Sexual Orientation Not on file documented as of this encounter Plan of Treatment Not on file documented as of this encounter Visit Diagnoses Diagnosis Other and unspecified disc disorder of lumbar region- Primary documented in this encounter Care Teams Respiratory Technician Relationship Specialty Start Date End Date Jayesh Krueger MD [address] [place] [address] PCP - General Internal Medicine 12/19/16 documented as of this encounter
--- OUTSIDE RECORDS SUMMARY | 2025-05-19 12:25 | XMS_ITS | Encounter Summary ---
Author Organization [facility] Address [address] [place] [address] Care Team Providers Care Freight Elevator Erector Name Role Phone Jayesh Krueger MD Primary Care Provider [phone] Encounter Details Date Type Department Care Team (Late st Contact Info) Description 01/05/2003 Outpatient Historical [facility] Thomas Dailey MD [address] [place] [address] LUMBAGO (Primary Dx) Social History Tobacco Use Types Packs/Day Years Used Date Smoking Tobacco: Never Assessed Comments Unknown Sex and Gender Information Value Date Recorded Sex Assigned at Not on file Legal Sex Female 5:34 AM RECOVERY UNIT OPERATOR Gender Identity Not on file Sexual Orientation Not on file documented as of this encounter Plan of Treatment Not on file documented as of this encounter Visit Diagnoses Diagnosis Lumbago- Primary documented in this encounter Care Teams Freight Elevator Erector Relationship Specialty Start Date End Date Jayesh Krueger MD [address] [place] [address] PCP - General Internal Medicine 12/19/16 documented as of this encounter
--- OUTSIDE RECORDS SUMMARY | 2025-05-19 12:25 | XMS_ITS | Encounter Summary ---
Author Organization [facility] Address [address] [facility] Attn: [place] [address] Care Team Providers Care Boulevard Glassware Replacer Name Role Phone Jayesh Krueger MD Primary Care Provider [phone] Encounter Details Date Type Department Care Team (Late st Contact Info) Description 03/05/2000 Outpatient Historical Thomas Dailey MD [address] [place] [address] Social History Tobacco Use Types Packs/Day Years Used Date Smoking Tobacco: Never Assessed Comments Unknown Sex and Gender Information Value Date Recorded Sex Assigned at Not on file Legal Sex Female 5:34 AM JUNIOR JAVA DEVELOPER Gender Identity Not on file Sexual Orientation Not on file documented as of this encounter Plan of Treatment Not on file documented as of this encounter Visit Diagnoses Not on filedocumented in this encounter Care Teams Boulevard Glassware Replacer Relationship Specialty Start Date End Date Jayesh Krueger MD [address] [place] [address] PCP - General Internal Medicine 12/19/16 documented as of this encounter
--- OUTSIDE RECORDS SUMMARY | 2025-05-19 12:25 | XMS_ITS | Encounter Summary ---
Author Organization [facility] Address [address] [place] [address] Care Team Providers Care Electric Sign Wirer Name Role Phone Jayesh Krueger MD Primary Care Provider [phone] Encounter Details Date Type Department Care Team (Latest Contact Info) Description 11/11/2002 Outpatient Historical [facility] RADIOLOGY NEUROP Thomas Dailey MD [address] [place] [address] LUMBAGO (Primary Dx) Social History Tobacco Use Types Packs/Day Years Used Date Smoking Tobacco: Never Assessed Comments Unknown Sex and Gender Information Value Date Recorded Sex Assigned at Not on file Legal Sex Female 5:34 AM FLORIST DESIGNER Gender Identity Not on file Sexual Orientation Not on file documented as of this encounter Plan of Treatment Not on file documented as of this encounter Visit Diagnoses Diagnosis Lumbago- Primary documented in this encounter Care Teams Electric Sign Wirer Relationship Specialty Start Date End Date Jayesh Krueger MD [address] [place] [address] PCP - General Internal Medicine 12/19/16 documented as of this encounter
--- OUTSIDE RECORDS SUMMARY | 2025-05-19 12:25 | XMS_ITS | Encounter Summary ---
Author Organization [facility] Address [address] [place] [address] Care Team Providers Care Orchestra Leader Name Role Phone Jayesh Krueger MD Primary Care Provider [phone] Encounter Details Date Type Department Care Team (Latest Contact Info) Description 05/03/2004 Outpatient Historical [facility] Endocrinology-[facility] [place] [address] [place] [address] Chin Patel MD NO ADDRESS ON FILE DIABETES MELLITUS TYPE II-UNCOMPL (CMS/HCC) (Primary Dx); HYPERLIPIDEMIA NEC/NOS; HYPERTENSION NOS; HYPOTHYROIDISM NOS Social History Tobacco Use Types Packs/Day Years Used Date Smoking Tobacco: Never Assessed Comments Unknown Sex and Gender Information Value Date Recorded Sex Assigned at Not on file Legal Sex Female 5:34 AM FEATHERER Gender Identity Not on file Sexual Orientation Not on file documented as of this encounter Plan of Treatment Not on file documented as of this encounter Visit Diagnoses Diagnosis Type II or unspecified type diabetes mellitus without mention of complication, not stated as uncontrolled- Primary Other and unspecified hyperlipidemia Unspecified essential hypertension Unspecified hypothyroidism documented in this encounter Care Teams Orchestra Leader Relationship Specialty Start Date End Date Jayesh Krueger MD [address] [place] [address] PCP - General Internal Medicine 12/19/16 documented as of this encounter
--- OUTSIDE RECORDS SUMMARY | 2025-05-19 12:25 | XMS_ITS | Encounter Summary ---
Author Organization [facility] Address [address] [place] [address] Care Team Providers Care Courtroom Reporter Name Role Phone Jayesh Krueger MD Primary Care Provider [phone] Encounter Details Date Type Department Care Team (Latest Contact Info) Description 02/17/2003 Outpatient Historical [facility] Imaging Services [address] [place] [address] Thomas Dailey MD [address] [place] [address] SURGERY FOLLOWUP, OTHER (Primary Dx) Social History Tobacco Use Types Packs/Day Years Used Date Smoking Tobacco: Never Assessed Comments Unknown Sex and Gender Information Value Date Recorded Sex Assigned at Not on file Legal Sex Female 5:34 AM SHEARING MACHINE OPERATOR Gender Identity Not on file Sexual Orientation Not on file documented as of this encounter Plan of Treatment Not on file documented as of this encounter Visit Diagnoses Diagnosis Follow-up examination, following other surgery- Primary documented in this encounter Care Teams Courtroom Reporter Relationship Specialty Start Date End Date Jayesh Krueger MD [address] [place] [address] PCP - General Internal Medicine 12/19/16 documented as of this encounter
--- OUTSIDE RECORDS SUMMARY | 2025-05-19 12:25 | XMS_ITS | Encounter Summary ---
Author Organization [facility] Address [address] [place] [address] Care Team Providers Care Product Test Engineer Name Role Phone Jayesh Krueger MD Primary Care Provider [phone] Encounter Details Date Type Department Care Team (Late st Contact Info) Description 09/01/1999 Outpatient Historical [facility] Cardiac Thoracic Vascular Surg [place] [address] [place] [address] Social History Tobacco Use Types Packs/Day Years Used Date Smoking Tobacco: Never Assessed Comments Unknown Sex and Gender Information Value Date Recorded Sex Assigned at Not on file Legal Sex Female 5:34 AM COMMAND AND CONTROL OFFICER Gender Identity Not on file Sexual Orientation Not on file documented as of this encounter Plan of Treatment Not on file documented as of this encounter Visit Diagnoses Not on filedocumented in this encounter Care Teams Product Test Engineer Relationship Specialty Start Date End Date Jayesh Krueger MD [address] [place] [address] PCP - General Internal Medicine 12/19/16 documented as of this encounter
--- OUTSIDE RECORDS SUMMARY | 2025-05-19 12:25 | XMS_ITS | Encounter Summary ---
Author Organization [facility] Address [address] [facility] Attn: [place] [address] Care Team Providers Care Double End Tenoner Operator Name Role Phone Jayesh Krueger MD Primary Care Provider [phone] Encounter Details Date Type Department Care Team (Late st Contact Info) Description 04/13/2000 Inpatient Historical Thomas Dailey MD [address] [place] [address] Social History Tobacco Use Types Packs/Day Years Used Date Smoking Tobacco: Never Assessed Comments Unknown Sex and Gender Information Value Date Recorded Sex Assigned at Not on file Legal Sex Female 5:34 AM ALTITUDE CHAMBER TECHNICIAN Gender Identity Not on file Sexual Orientation Not on file documented as of this encounter Plan of Treatment Not on file documented as of this encounter Visit Diagnoses Not on filedocumented in this encounter Care Teams Double End Tenoner Operator Relationship Specialty Start Date End Date Jayesh Krueger MD [address] [place] [address] PCP - General Internal Medicine 12/19/16 documented as of this encounter
--- OUTSIDE RECORDS SUMMARY | 2025-05-19 12:25 | XMS_ITS | Clinical Summary ---
Author Organization [facility] Address [address] [place] [address] Care Team Providers Care Crushing Mill Operator Name Role Phone Jayesh Krueger MD Primary Care Provider [phone] Allergies Active Allergy Reactions Criticality Noted Date [...] on file Legal Sex Female 12:52 AM MUD ENGINEER Gender Identity Not on file Sexual [...] Screening 08/28/2026 Medical Devices Implanted Type Area Resident Care Technician Device Identifier Shelf Expiration Date Model / Serial / Lot Cement Palacos Sgl [id number] - [id number] Implanted:Qty: 1 on 04/02/2013 Cement Left: Knee [employer] 11/05/2017 00-1112-14 0- / / [id number] Bearing Ruthie Mathew Md Sz 5 [id number] - [id number] Implanted:Qty: 1 on 04/02/2013 Knee Left: Knee [employer] 07/08/2016 [id number] / / [id number] Tray Tib [place] Uni Szb Lm [id number] - [id number] Implanted:Qty: 1 on 04/02/2013 Knee Left: Knee [employer] 07/08/2022 [id number] / / [id number] [place] Partial Knee System, Cemented Twin Pegged Femoral Implanted:Qty: 1 on 04/02/2013 by Jean-Paul Kirkland MD Left: Knee [employer] 10/06/2022 [id number] / / [id number] Insurance MEDICARE PART A AND B [facility] Care Teams Crushing Mill Operator Relationship Specialty Start Date End Date Jayesh Krueger MD [address] [place] [address] PCP - General 10/21/20
--- OUTSIDE RECORDS SUMMARY | 2025-05-19 12:25 | XMS_ITS | Encounter Summary ---
Author Organization [facility] Address [address] [place] [address] Care Team Providers Care Drill Operator Name Role Phone Jayesh Krueger MD Primary Care Provider [phone] Encounter Details Date Type Department Care Team (Late st Contact Info) Description 10/25/1999 Outpatient Historical [facility] Social History Tobacco Use Types Packs/Day Years Used Date Smoking Tobacco: Never Assessed Comments Unknown Sex and Gender Information Value Date Recorded Sex Assigned at Not on file Legal Sex Female 5:34 AM BOX TOE CUTTER Gender Identity Not on file Sexual Orientation Not on file documented as of this encounter Plan of Treatment Not on file documented as of this encounter Visit Diagnoses Not on filedocumented in this encounter Care Teams Drill Operator Relationship Specialty Start Date End Date Jayesh Krueger MD [address] [place] [address] PCP - General Internal Medicine 12/19/16 documented as of this encounter
--- OUTSIDE RECORDS SUMMARY | 2025-05-19 12:25 | XMS_ITS | Encounter Summary ---
Author Organization [facility] Address [address] [place] [address] Care Team Providers Care Laboratory Cureman Name Role Phone Jayesh Krueger MD Primary Care Provider [phone] Encounter Details Date Type Department Care Team (Latest Contact Info) Description 05/08/2005 Outpatient Historical [facility] Endocrinology-[facility] [place] [address] [place] [address] Chin Patel MD NO ADDRESS ON FILE DIABETES MELLITUS TYPE II-UNCOMPL (CMS/HCC) (Primary Dx); HYPERLIPIDEMIA NEC/NOS; HYPERTENSION NOS Social History Tobacco Use Types Packs/Day Years Used Date Smoking Tobacco: Never Assessed Comments Unknown Sex and Gender Information Value Date Recorded Sex Assigned at Not on file Legal Sex Female 5:34 AM OYSTER WASHER Gender Identity Not on file Sexual Orientation Not on file documented as of this encounter Plan of Treatment Not on file documented as of this encounter Visit Diagnoses Diagnosis Type II or unspecified type diabetes mellitus without mention of complication, not stated as uncontrolled- Primary Other and unspecified hyperlipidemia Unspecified essential hypertension documented in this encounter Care Teams Laboratory Cureman Relationship Specialty Start Date End Date Jayesh Krueger MD [address] [place] [address] PCP - General Internal Medicine 12/19/16 documented as of this encounter
--- OUTSIDE RECORDS SUMMARY | 2025-05-19 12:25 | XMS_ITS | Encounter Summary ---
Author Organization [facility] Address [address] [place] [address] Care Team Providers Care Vessel Captain Name Role Phone Jayesh Krueger MD Primary Care Provider [phone] Encounter Details Date Type Department Care Team (Latest Contact Info) Description 01/12/2003 Inpatient Historical [facility] Operating Room [address] [place] [id number] Thomas Dailey MD [address] [place] [address] LUMB/LUMBOSAC DISC DEGEN (Primary Dx) Social History Tobacco Use Types Packs/Day Years Used Date Smoking Tobacco: Never Assessed Comments Unknown Sex and Gender Information Value Date Recorded Sex Assigned at Not on file Legal Sex Female 5:34 AM DRIER BELT CONVEYOR Gender Identity Not on file Sexual Orientation Not on file documented as of this encounter Plan of Treatment Not on file documented as of this encounter Visit Diagnoses Diagnosis Degeneration of lumbar or lumbosacral intervertebral disc- Primary documented in this encounter Care Teams Vessel Captain Relationship Specialty Start Date End Date Jayesh Krueger MD [address] [place] [address] PCP - General Internal Medicine 12/19/16 documented as of this encounter
--- OUTSIDE RECORDS SUMMARY | 2025-05-19 12:25 | XMS_ITS | Encounter Summary ---
Author Organization [facility] Address [address] [place] [address] Care Team Providers Care Brush Maker Machine Name Role Phone Jayesh Krueger MD Primary Care Provider [phone] Encounter Details Date Type Department Care Team (Latest Contact Info) Description 12/10/2003 Outpatient Historical Imaging Services [address] [place] [address] Thomas Dailey MD [address] [place] [address] LUMBOSACRAL NEURITIS NOS (Primary Dx) Social History Tobacco Use Types Packs/Day Years Used Date Smoking Tobacco: Never Assessed Comments Unknown Sex and Gender Information Value Date Recorded Sex Assigned at Not on file Legal Sex Female 5:34 AM ELECTRICAL & INSTRUMENTATION SUPERVISOR Gender Identity Not on file Sexual Orientation Not on file documented as of this encounter Plan of Treatment Not on file documented as of this encounter Visit Diagnoses Diagnosis Thoracic or lumbosacral neuritis or radiculitis, unspecified- Primary documented in this encounter Care Teams Brush Maker Machine Relationship Specialty Start Date End Date Jayesh Krueger MD [address] [place] [address] PCP - General Internal Medicine 12/19/16 documented as of this encounter
--- OUTSIDE RECORDS SUMMARY | 2025-05-19 12:25 | XMS_ITS | Encounter Summary ---
Author Organization [facility] Address [address] [facility] Attn: [place] [address] Care Team Providers Care Composing Machine Operator/Tender Name Role Phone Jayesh Krueger MD Primary Care Provider [phone] Encounter Details Date Type Department Care Team (Late st Contact Info) Description 02/27/2000 Outpatient Historical Thomas Dailey MD [address] [place] [address] Social History Tobacco Use Types Packs/Day Years Used Date Smoking Tobacco: Never Assessed Comments Unknown Sex and Gender Information Value Date Recorded Sex Assigned at Not on file Legal Sex Female 5:34 AM CAR DETAILER Gender Identity Not on file Sexual Orientation Not on file documented as of this encounter Plan of Treatment Not on file documented as of this encounter Visit Diagnoses Not on filedocumented in this encounter Care Teams Composing Machine Operator/Tender Relationship Specialty Start Date End Date Jayesh Krueger MD [address] [place] [address] PCP - General Internal Medicine 12/19/16 documented as of this encounter
--- OUTSIDE RECORDS SUMMARY | 2025-05-19 12:25 | XMS_ITS | Encounter Summary ---
Author Organization [facility] Address [address] [facility] [facility] Attn: Epic Prelude ADT [place] [address] Care Team Providers Care Director Machine Name Role Phone Jayesh Krueger MD Primary Care Provider [phone] Encounter Details Date Type Department Care Team (Late st Contact Info) Description 06/20/2000 Outpatient Historical Non-Staff, Physician NO ADDRESS ON FILE Social History Tobacco Use Types Packs/Day Years Used Date Smoking Tobacco: Never Assessed Comments Unknown Sex and Gender Information Value Date Recorded Sex Assigned at Not on file Legal Sex Female 5:34 AM PRESCHOOL ASSISTANT TEACHER Gender Identity Not on file Sexual Orientation Not on file documented as of this encounter Plan of Treatment Not on file documented as of this encounter Visit Diagnoses Not on filedocumented in this encounter Care Teams Director Machine Relationship Specialty Start Date End Date Jayesh Krueger MD [address] [place] [address] PCP - General Internal Medicine 12/19/16 documented as of this encounter
--- OUTSIDE RECORDS SUMMARY | 2025-05-19 12:25 | XMS_ITS | Encounter Summary ---
Author Organization [facility] Address [address] [place] [address] Care Team Providers Care Dials Inspector Name Role Phone Jayesh Krueger MD Primary Care Provider [phone] Encounter Details Date Type Department Care Team (Latest Contact Info) Description 06/11/2000 Outpatient Historical [facility] Nasir Uriostegui MD NO ADDRESS ON FILE Headache(784.0) (Primary Dx) Social History Tobacco Use Types Packs/Day Years Used Date Smoking Tobacco: Never Assessed Comments Unknown Sex and Gender Information Value Date Recorded Sex Assigned at Not on file Legal Sex Female 5:34 AM PEDIATRIC ONCOLOGY NURSE Gender Identity Not on file Sexual Orientation Not on file documented as of this encounter Plan of Treatment Not on file documented as of this encounter Visit Diagnoses Diagnosis Headache(784.0)- Primary Headache documented in this encounter Care Teams Dials Inspector Relationship Specialty Start Date End Date Jayesh Krueger MD [address] [place] [address] PCP - General Internal Medicine 12/19/16 documented as of this encounter
--- OUTSIDE RECORDS SUMMARY | 2025-05-19 12:25 | XMS_ITS | Encounter Summary ---
Author Organization [facility] Address [address] [place] [address] Care Team Providers Care Director Sales And Marketing Name Role Phone Jayesh Krueger MD Primary Care Provider [phone] Encounter Details Date Type Department Care Team (Late st Contact Info) Description 02/06/2001 Outpatient Historical [facility] [address] [place] [address] Sotero Ortiz MD NO ADDRESS ON FILE Myalgia and myositis, unspecified (Primary Dx); Headache(784.0) Social History Tobacco Use Types Packs/Day Years Used Date Smoking Tobacco: Never Assessed Comments Unknown Sex and Gender Information Value Date Recorded Sex Assigned at Not on file Legal Sex Female 5:34 AM CLOTH BRUSHING AND SUEDING SUPERVISOR Gender Identity Not on file Sexual Orientation Not on file documented as of this encounter Plan of Treatment Not on file documented as of this encounter Visit Diagnoses Diagnosis Myalgia and myositis, unspecified- Primary Mylagia and myositis, unspecified Headache(784.0) Headache documented in this encounter Care Teams Director Sales And Marketing Relationship Specialty Start Date End Date Jayesh Krueger MD [address] [place] [address] PCP - General Internal Medicine 12/19/16 documented as of this encounter
--- OUTSIDE RECORDS SUMMARY | 2025-05-19 12:25 | XMS_ITS | Encounter Summary ---
Author Organization [facility] Address [address] [place] [address] Care Team Providers Care Field Technical Specialist Name Role Phone Jayesh Krueger MD Primary Care Provider [phone] Encounter Details Date Type Department Care Team (Late st Contact Info) Description 09/06/2003 Emergency [facility] Emergency Department [address] 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
--- OUTSIDE RECORDS SUMMARY | 2025-05-19 12:25 | XMS_ITS | Encounter Summary ---
Author Organization [facility] Address [address] [facility] Attn: Epic Prelude ADT [place]ODY [place] [address] Care Team Providers Care Motorcycle Technician Name Role Phone Jayesh Krueger MD Primary Care Provider [phone] Encounter Details Date Type Department Care Team (Late st Contact Info) Description 02/06/2001 Outpatient Historical Sotero Ortiz MD NO ADDRESS ON FILE Social History Tobacco Use Types Packs/Day Years Used Date Smoking Tobacco: Never Assessed Comments Unknown Sex and Gender Information Value Date Recorded Sex Assigned at Not on file 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
--- OUTSIDE RECORDS SUMMARY | 2025-05-19 12:25 | XMS_ITS | Encounter Summary ---
Author Organization [facility] Address [address] [facility] Attn: [place] [id number] Care Team Providers Care Panel Wirer Name Role Phone Jayesh Krueger MD Primary Care Provider [phone] Encounter Details Date Type Department Care Team (Late st Contact Info) Description 05/24/2000 Outpatient Historical Thomas Dailey MD [address] 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
--- OUTSIDE RECORDS SUMMARY | 2025-05-19 12:25 | XMS_ITS | Encounter Summary ---
Author Organization [facility] Address [address] [place] [address] Care Team Providers Care Silver Miner Name Role Phone Jayesh Krueger MD Primary Care Provider [phone] Encounter Details Date Type Department Care Team (Latest Contact Info) Description 12/13/1999 Outpatient Historical [facility] Nasir Uriostegui MD NO ADDRESS ON FILE Degeneration of cervical intervertebral disc (Primary Dx) Social History Tobacco Use Types Packs/Day Years Used Date Smoking Tobacco: Never Assessed Comments Unknown Sex and Gender Information Value Date Recorded Sex Assigned at Not on file 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
--- OUTSIDE RECORDS SUMMARY | 2025-05-19 12:26 | XMS_ITS | Encounter Summary ---
Author Organization [facility] Address [address] [place] [address] Care Team Providers Care Plate Maker Name Role Phone Jayesh Krueger MD Primary Care Provider Encounter Details Date Type Department Care Team (Latest Contact Info) Description 11/06/2005 Outpatient Historical [facility] [address] [place] [address] Chin Patel MD NO ADDRESS ON FILE DM w/o Complication Type II (CMS/HCC) (Primary Dx); Other and Unspecified Hyperlipidemia; Unspecified Essential Hypertension Social History Tobacco Use Types Packs/Day Years Used Date Smoking Tobacco: Never Assessed Comments Unknown Sex and Gender Information Value Date Recorded Sex Assigned at Not on file 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 Female 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
--- OUTSIDE RECORDS SUMMARY | 2025-05-19 12:26 | XMS_ITS | Patient Health Record ---
Author Organization [facility] Address [address] [place] [address] Care Team Providers Care Director Of Athletics Name Role Phone Carter Yusuf Primary Care Provider Sam Tomlinson [phone] Allergies Allergen (clinical drug ingredient) Drug/Non Drug [...] down, depressed, or hopeless [facility] than [facility] the days Trouble falling or staying asleep, [...] Problem Status W/U Status Risk Notes Problem Adjustment disorder with mixed disturbance of emotions AND conduct (17423105) Adjustment disorder with mixed disturbance of emotions and conduct (F43.25) Active confirmed Problem Dysphagia (71016838) Dysphagia, unspecified (R13.10) Active confirmed Problem Anxiety (01570102) Anxiety (F41.9) Active confirmed Problem Bipolar 1 disorder (650171590) Bipolar 1 disorder (F31.9) Active confirmed Problem Posttraumatic stress disorder (53914136) Post traumatic stress disorder (PTSD) (F43.10) Active confirmed Problem Insomnia (790851643) Insomnia (G47.00) Active confirmed Problem Dysphagia (18035389) Dysphagia, unspecified type (R13.10) Active confirmed Problem Psychosis (50129082) Psychosis (F29) Active confirmed Problem Steatorrhea (74345003) Steatorrhea (K90.9) Active confirmed Problem History of adenomatous polyp of colon (081787262) History of adenomatous polyp of colon (Z86.010) Active confirmed Problem History of adenomatous polyp of colon (613502278) Hx of adenomatous polyp of colon (Z86.010) Active confirmed Problem Atrophic gastritis (28437451) Mild chronic gastritis (K29.50) Active confirmed Problem Gastroesophageal reflux disease (598851129) Gastroesophagea l reflux disease, unspecified whether esophagitis present (K21.9) Active confirmed Problem 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 (571297994796081) 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 confirmed [id number] med Description:Cor onary arteriosclerosi s Problem Gastro-esophageal reflux disease without esophagitis (005460680) Gastro-esophage al reflux disease without esophagitis (K21.9) Active confirmed [id number] med Description:Gas troesophageal reflux disease Problem Chest pain (83967896) Chest pain, unspecified (R07.9) Active confirmed [id number] med Description:Cherise st pain Problem Dyspareunia (75415082) Dyspareunia (625.0) 2004 Problem resolved confirmed [id number] Problem Hypercholesterole kedar (90324782) Hypercholestero lemia (272.0) 2004 Problem resolved confirmed [id number] Problem 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) 2004 Problem resolved confirmed [id number]- Problem Acquired hypothyroidism (960935096) Acquired hypothyroidism (244.8) 2004 Problem resolved confirmed [id number]- Problem Diabetes mellitus type 2 (disorder) (00033662) Type 2 diabetes (250.00) 2004 Problem resolved confirmed [id number]- Plan Of Treatment Pending Test Test Name Order Date Culture Stool 80882, 95562, 06759, 21820 , 37899 08/15/2021 Giardia/Cryptosporidium Screen 97683, 87 329 08/15/2021 Fecal Leukocyte 44108 08/15/2021 CDiff PCR Rfx C diff Toxin NAP/EPI 27257 , 12442 08/15/2021 Calprotectin Fecal 87646 08/15/2021 Pancreatic Elastase Fecal--47919 022 Diagnostic Colonoscopy-19764 08/15/2021 EGD, Upper GI Diagnostic-67870 2 Insurance Providers Payer Name Payer Address Payer Phone Subscriber Number Group Number Insured Name Patient Relationship to Insured Coverage Start Date Coverage End Date [place] [address] [place] [phone] [id number] Kaylee Ch Self - patient is the insured [facility] [address] [address] [place] [address] [id number] Kaylee Ch Self - patient is the [...]
--- OUTSIDE RECORDS SUMMARY | 2025-05-19 12:26 | XMS_ITS | Encounter Summary ---
Author Organization [facility] Address [address] [place] [address] Care Team Providers Care Data Support Analyst Name Role Phone Jayesh Krueger MD Primary Care Provider [phone] Encounter Details Date Type Department Care Team (Latest Contact Info) Description 03/20/2006 Outpatient Historical [facility] Endocrinology-[facility] [place] [address] [address] Brice O[place], [place] [address] 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
--- OUTSIDE RECORDS SUMMARY | 2025-05-19 12:26 | XMS_ITS | Encounter Summary ---
Author Organization [facility] Address [address] [place] [address] Care Team Providers Care Electronic Engraver Name Role Phone Jayesh Krueger MD Primary Care Provider [phone] Encounter Details Date Type Department Care Team (Latest Contact Info) Description 07/05/2005 Outpatient Historical [facility] Imaging Services-[facility] [place] [address] [place] [address] Anthony Andrews, DPM [address] [place] [address] OTHER HAMMER TOE (Primary Dx) Social History Tobacco Use Types Packs/Day Years Used Date Smoking Tobacco: Never Assessed Comments Unknown Sex and Gender Information Value Date Recorded Sex Assigned at Not on file 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
--- OUTSIDE RECORDS SUMMARY | 2025-05-19 12:26 | XMS_ITS | Encounter Summary ---
Author Organization [facility] Address [address] [place] [address] Care Team Providers Care Senior Clinical Data Manager Name Role Phone Jayesh Krueger MD Primary Care Provider [phone] Encounter Details Date Type Department Care Team (Latest Contact Info) Description 10/31/2006 Outpatient Historical [facility] Endocrinology-[facility] [place] [address] [address] Brice Oconnell, [place] [address] 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 Gender Identity Not on file Sexual Orientation Not on file documented as of this encounter Plan of Treatment Not on file documented as of this encounter Visit Diagnoses Diagnosis Type II or unspecified type diabetes mellitus without mention of complication, not stated as uncontrolled- Primary Other and unspecified hyperlipidemia Unspecified essential hypertension documented in this encounter Care Teams Senior Clinical Data Manager Relationship Specialty Start Date End Date Jayesh Krueger MD [address] [place] [address] PCP - General Internal Medicine 12/19/16 documented as of this encounter
--- OUTSIDE RECORDS SUMMARY | 2025-05-19 12:26 | XMS_ITS | Encounter Summary ---
Author Organization [facility] Address [address] [place] [address] Care Team Providers Care Obstetrician And Gynaecologist Name Role Phone Jayesh Krueger MD Primary Care Provider [phone] Encounter Details Date Type Department Care Team (Latest Contact Info) Description 07/03/2006 Outpatient Historical [facility]ocrinology-[facility] [place] [address] [place] [address] Chin Patel MD NO ADDRESS ON FILE DM w/o Complication Type II, Uncontrolled (Primary Dx); Other and Unspecified Hyperlipidemia; Unspecified Essential Hypertension Social History Tobacco Use Types Packs/Day Years Used Date Smoking Tobacco: Never Assessed Comments Unknown Sex and Gender Information Value Date Recorded Sex Assigned at Not on file 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
[2025-05-19] MEDS: atropine 0.1 mg/mL Syr 10 mL 1 MG IVP (12:28)
[2025-05-19 12:38] LABS: ABG PCO2 53.4 mmHg (35-45); ABG PH Result 7.31 (7.35-7.45); Alveolar-Arterial Oxygen Gradi 24.7 mmHg (5-10); Arterial Blood Gas Hematocrit 43.6 % (37-47); Blood Gas Allen Test Pos; Blood Gas LPM 6.0 %; Blood Gas Operator Identificat MONRO; Blood Gas Sample Site Radial, right; Blood Gas Sample Type Arterial; Carboxyhemoglobin 1.4 %THgb (0.4-20.1); Glucose Level-ABG 498.0 mg/dL (70-115); HCO3 ABG 27.0 mmol/L (22-26); Ionized Calcium Level - ABG 1.2 mmol/L (1.1-1.4); Methemoglobin 0.2 % (0.4-1.5); Oxygen Saturation ABG 89.4; PO2 ABG 59.2 mmHg (80.0-100.0); PO2 FiO2 Ratio Arterial Blood 134; Potassium Level - ABG 4.9 mmol/L (3.5-5.0); Sodium Level - ABG 132.0 mmol/L (131-143)
--- NOTE | 2025-05-19 12:47 | P.CONIM_ITS ---
<Statement entered by Ranjit Nicolas M.D - 05/23/25 19:30> Patient was cared for in conjunction with an advanced practice practitioner. I reviewed the chart and all pertinent data including imaging, telemetry, and laboratory results. I discussed the patient in detail with the advanced practice practitioner. Please see their note for agreed upon plan of care and results for the patient. Providers/Reason For Consult Consulting Physician/Specialty*: Dr Nicolas, interventional cardiology Reason for Consult*: transvenous pacemaker Requesting Physician: Dr. Sanderson Primary Care Provider: Carter Yusuf MD History of Present Illness History of Present Illness Kaylee Ch is a 69 year old female with past medical history of atrial flutter/atrial fibrillation, TIA and CVA, hypertension, type 2 diabetes, memory loss, bipolar disorder, PTSD. She has a history of frequent falls, had amputation of the left great toe 01/27/2025, at that time developed atrial flutter and was started on amiodarone with taper prescribed. She was seen in the clinic for follow-up 02/18/2025 and had noted a 20-minute episode of chest pain the day before. Plans were for stress test for ischemic workup. That has not been completed. She had a 30-day event monitor placed at that visit which showed sinus rhythm with 8% A-fib burden, less than 1% VE, 1% SVE. When in atrial fibrillation she was not rate controlled. She was brought to the emergency room by her brother, who found her down in her motel room this morning. It is unclear how long she had been down. She is able to answer some questions, is aware that she is at the hospital. Her brother noted she had been having syncope and falls in the last few days. She was seen in this ER yesterday due to a fall, EKG was normal at that time, QTc 432ms. CT of the head negative for intracranial hemorrhage. In reviewing her medical record she was seen in the emergency room for hallucinations 04/10/2025, received psychiatric care at that time and was transferred to geriatric psychiatric facility. She was seen in the emergency room 04/24/2025 for cellulitis of the left great toe post amputation, started on Cipro and clindamycin, I note she was on duloxetine or fluoxetine (both are on her medication list) as well. She had multiple QT prolonging agents prescribed. Today she was found to be in complete heart block, transcutaneous pacing was initiated for hemodynamic stability. When the pacemaker was paused for assessment of rhythm, there was no electrical activity present, asystole. Pacing was resumed and [facility] was called for transvenous pacemaker placement and coronary angiogram. She was intubated in the ER for airway protection. Labs were pending when patient was taken for procedure. Medications/Allergies Home Medications ?Medication ?Instructions ?Recorded ?Confirmed ?Last Taken ?Type ascorbic acid 7.5 mg-vit E 7.5 1 tab PO DAILY@1000 01/2605/19/25 04/08/25 History unit-biotin 1,250 mcg chewable tablet (Hair,Skin,Nails with Biotin) multivitamin 1 tab PO DAILY@1000 11/12/20 05/19/25 04/08/25 History insulin syringe-needle U-100 1 mL #100 ea 09/06/2206/02 Unknown Rx 28 gauge x 1/2 (BD Insulin Syringe) cyanocobalamin (vitamin B-12) 1,000 mcg PO DAILY 01/0305/19/25 04/08/25 History 1,000 mcg tablet (Vitamin B-12) Diabetic shoes #1 ea 04/11/23 05/19/25 Unkn own Rx blood-glucose meter #1 ea 06/12/23 05/19/25 Unkn own Rx blood sugar diagnostic (Blood #200 ea 06/15/23 5 Unknown Rx Glucose Test strips) blood-glucose meter (Accu-Chek #1 ea 06/27/23 05/19/25 Unknown Rx Guide Glucose Meter) blood sugar diagnostic (Accu-Chek #100 ea 07/26/2306/02 Unknown Rx Guide test strips) gabapentin 100 mg capsule 100 mg PO BID 07/18/2405/1904/09/25 09:00 History potassium chloride 20 mEq 20 meq PO .DAILY@10AM 05/19/25 04/09/25 10:00 History tablet,extended release Diabetic Shoes with Inserts #1 ea 12/11/24 05/19/25 Un known Rx lamotrigine 200 mg tablet 200 mg PO BID 12/30/2405/1904/09/25 09:00 History cam boot to right #1 ea 01/05/25 05/19/25 Unkn own Rx duloxetine 60 mg capsule,delayed 120 mg PO QAM 2 5 05/19/25 04/09/25 08:00 History release fluoxetine 20 mg capsule 20 mg PO QAM 01/26/2504/09/25 08:00 History levothyroxine 200 mcg tablet 200 mcg PO .DAILY@10AM 05/19/25 04/09/25 10:00 History omega 5-wmn-cha-fish oil 1,200 mg 1 cap PO DAILY 01/3005/19/25 04/08/25 History (144 mg-216 mg) capsule (Fish Oil) amlodipine 10 mg tablet 10 mg PO DAILY #30 tabs 08/08/0205/19/25 04/09/25 09:00 Rx aspirin 81 mg tablet,delayed 81 mg PO DAILY #30 tabs 0 02/06/25 05/19/25 04/09/25 08:00 Rx release glimepiride 4 mg tablet 2 mg (1/2 x 4 mg) PO BID #30 tabs 02/06/25 05/19/25 04/09/25 09:00 Rx olanzapine 5 mg tablet 2.5 mg (1/2 x 5 mg) PO BID # 30 tabs 02/06/25 05/19/25 04/09/25 08:00 Rx sennosides 8.6 mg-docusate sodium 1 tab PO BID PRN Con stipation #30 02/06/25 05/19/25 Unknown Rx 50 mg tablet (Stool tabs Softener-Laxative) diazepam 10 mg tablet 10 mg PO BID PRN Anxiety 09/3005/19/25 04/09/25 08:00 History hydrocodone 5 mg-acetaminophen 325 1 tab PO Q6H PRN pa in #14 tabs 04/24/25 05/19/25 Unknown Rx mg tablet albuterol sulfate 90 mcg/actuation 2 inh inhalation Q4 H PRN shortness 04/27/25 05/19/25 Unknown Rx aerosol inhaler of breath or wheezing #6.7 g mychal insulin syringe-needle U-100 1 mL #100 ea 05/08/2506/02 Unknown Rx 31 gauge x 5/16 (TRUEplus Insulin) lancets (Accu-Chek Softclix #200 ea 05/08/25 05/19/25 Unknown Rx Lancets) semaglutide 0.25 mg or 0.5 mg (2 0.5 mg (0.736 mL) SUB CUT .weekly 05/08/25 05/19/25 05/13/25 Rx mg/3 mL) subcutaneous pen injector #3 mL (Ozempic) amiodarone 200 mg tablet (Pacerone) 200 mg PO DAILY 05/19/25 Unknown History atorvastatin 20 mg tablet 20 mg PO .@10AM 05/19/2506/02 Unknown History insulin degludec 100 unit/mL (3 20 unit SUBCUT BEDTIME 05/19/25 05/19/25 Unknown History mL) subcutaneous pen (Tresiba FlexTouch U-100 insulin) metoprolol succinate 25 mg 25 mg PO DAILY 05/19/2506/02 Unknown History tablet,extended release 24 hr propranolol 80 mg capsule,24 80 mg PO BID 05/19/2506/02 Unknown History hr,extended release quetiapine 100 mg tablet 100 mg PO BEDTIME 05/19/25 1 07/19/24 Unknown History Allergies Allergy/AdvReac Type Severity Reaction Status Date / Time azithromycin (From Zithromax) Allergy rash Verified 05/14/25 12:41 cetirizine (From Zyrtec) Allergy rash Verified 05/14/25 12:41 lisinopril (From Zestril) Allergy ALGY-Swell Verified 05/14/25 12:41 Lip/Tongue/Throat metformin AdvReac Intermediate diarrhea Verified 05/14/25 12:41 topiramate (From Topamax) AdvReac Intermediate diarrhea Verified 05/14/25 12:41 PFSH Acute PFSH: Medical History 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 Left shoulder pain Hypothyroid Hyperlipidemia Hypertension Diabetes mellitus Suspected COVID-19 virus infection Hypothyroidism Chronic diarrhea Tension headache, chronic CVA (cerebral vascular accident) TIA (transient ischemic attack) History of aphasia Hx of kidney disease Hx of type 2 diabetes mellitus History of anemia History of GI bleed History of hypothyroidism Hx of primary hypertension History of bipolar disorder History of anxiety History of depression History of posttraumatic stress disorder (PTSD) Surgical History Hx of appendectomy History of back surgery Hx of cholecystectomy Hx of hysterectomy Hx of neck surgery Social History Smoking and tobacco/nicotine status: never used tobacco/nicotine Alcohol intake: current Alcohol intake frequency: holidays/special occasions only Substance/Drug Use: never Vitals/I&O/Wt Last Vital Signs Temp 97.8 F 05/19/25 12:36 Pulse 72 05/19/25 12:26 Resp 20 H 05/19/25 12:26 BP 111/56 05/19/25 12:26 Pulse Ox 100 05/19/25 12:26 O2 Del Method Room Air 05/19/25 12:26 Weight last 48 hrs Weight 194 lb Physical Exam Const: COMMON NORMALS: no acute distress GENERAL APPEARANCE: cooperative and comfortable ORIENTATION/CONSCIOUSNESS: Yes awake and Yes oriented to person Chest: COMMONS NORMALS: normal inspection of the chest and normal palpation of entire chest wall CHEST: Yes Symmetrical chest wall rise Resp: COMMON NORMALS: normal respiratory effort, No retractions, No use of accessory muscles and clear to auscultation bilaterally EFFORT & INSPECTION: Yes symmetric chest movement AUSCULTATION: clear to auscultation bilaterally Cardio: COMMON NORMALS: regular rhythm, S1 normal heart sound present, S2 normal heart sound present, No gallops present (Cardio), No clicks present (Cardio), No murmurs present (Cardio) and No rub (Cardio) RATE: Other (transcutaneous pacing, rate 72 bpm) RHYTHM: regular rhythm HEART SOUNDS: S1 normal heart sound present and S2 normal heart sound present PERIPHERAL PULSES: radial pulses present Extremity: COMMON NORMALS: no pedal edema Neuro: COMMON NORMALS: moves all extremities SENSORIUM/ORIENTATION: Yes oriented to person A&P Assessment and plan 1. Complete heart block: 2. Asystole: 3. Hypertension: 4. Diabetes mellitus: 5. Multiple falls: Plan: She will be taken for transvenous pacemaker placement and coronary angiogram. Further plan will be based on results of procedure. Will hold any rate limiting medications or antiarrhythmics. I called the patient's brother for phone consent for both transvenous pacemaker and LHC, he was in agreement to proceed. PDMP PDMP Reviewed: Not Reviewed Coding Level of Care Code Acute Code for Chg Fwd Diagnoses Complete heart block I44.2 Asystole I46.9 Hypertension I10 Diabetes mellitus E11.9 Multiple falls R29.6
[2025-05-19] MEDS: DOPamine drip 400 MG/250 ML PREMIX 16.53 MG IV (12:48)
[2025-05-19] MEDS: etomidate 2 mg/mL INJ SDV 10 mL 20 MG IVP (12:53)
--- NOTE | 2025-05-19 12:53 | PC.NURSE ---
INTUBATION NOTE 1253 ETOMIDATE AND SUCC ADMINISTERED 1254 TUBE PLACED- MEASURING 22 AT THE TEETH
[2025-05-19 12:54] LABS: Hematocrit 46.3 % (36-47); Hemoglobin 14.30 g/dL (11.27-16.99); Mean Corpuscular HGB Conc 30.9 g/dL (30-55); Mean Corpuscular Hemoglobin 29.2 pg (27-33); Mean Corpuscular Volume 94.7 fl (85-98); Nucleated Red Blood Cells % 0 %; Platelet Count 316 10^3/cmm (157-399); Red Blood Count 4.89 10^6/uL (3.85-5.65); White Blood Count 14.83 10^3/uL (3.29-11.43)
[2025-05-19] MEDS: succinylcholine 20 mg/mL SDV 10mL 100 MG IVP (12:54)
--- NOTE | 2025-05-19 12:57 | W.ED.AMS ---
HPI - Altered Mental Status General: Chief Complaint: Altered Mental Status Stated Complaint: Fall, Fall hit head Time Seen by Provider: 05/19/25 12:17 History of Present Illness: 69-year-old female with a history of hypothyroidism, hyperlipidemia, hypertension, diabetes, obesity, stroke/TIA in the past, bipolar disorder and PTSD who presents the emergency room by ambulance due to complete heart block being paced transcutaneously. Limited history on what happened earlier today. She was seen in the emergency room yesterday. She had been having multiple falls and lightheadedness. She had a normal sinus rhythm on EKG at that time. She is being given ketamine and is a bit somnolent but is arousable and follows commands. Can answer some questions. Does appear to be in some pain secondary to pacing. Related Data Home Medications ?Medication ?Instructions ?Recorded ?Confirmed ascorbic acid 7.5 mg-vit E 7.5 1 tab PO DAILY@1000 11/12/20 05/19/25 unit-biotin 1,250 mcg chewable tablet (Hair,Skin,Nails with Biotin) multivitamin 1 tab PO DAILY@1000 11/12/20 05/19/25 cyanocobalamin (vitamin B-12) 1,000 mcg PO DAILY 01/03/23 05/19/25 1,000 mcg tablet (Vitamin B-12) gabapentin 100 mg capsule 100 mg PO BID 07/18/24 05/19/25 potassium chloride 20 mEq 20 meq PO .DAILY@10AM 07/18/24 05/19/25 tablet,extended release lamotrigine 200 mg tablet 200 mg PO BID 12/30/24 05/19/25 duloxetine 60 mg capsule,delayed 120 mg PO QAM 01/26/25 05/19/25 release fluoxetine 20 mg capsule 20 mg PO QAM 01/26/25 05/19/25 levothyroxine 200 mcg tablet 200 mcg PO .DAILY@10AM 01/26/25 05/19/25 omega 3-tkz-wsw-fish oil 1,200 mg 1 cap PO DAILY 01/30/25 05/19/25 (144 mg-216 mg) capsule (Fish Oil) diazepam 10 mg tablet 10 mg PO BID PRN Anxiety 04/10/25 05/19/25 amiodarone 200 mg tablet (Pacerone) 200 mg PO DAILY 05/19/25 05/19/25 atorvastatin 20 mg tablet 20 mg PO .@10AM 05/19/25 05/19/25 insulin degludec 100 unit/mL (3 20 unit SUBCUT BEDTIME 05/19/25 05/19/25 mL) subcutaneous pen (Tresiba FlexTouch U-100 insulin) metoprolol succinate 25 mg 25 mg PO DAILY 05/19/25 05/19/25 tablet,extended release 24 hr propranolol 80 mg capsule,24 80 mg PO BID 05/19/25 05/19/25 hr,extended release quetiapine 100 mg tablet 100 mg PO BEDTIME 05/19/25 05/19/25 Previous Rx's ?Medication ?Instructions ?Recorded insulin syringe-needle U-100 1 mL #100 ea 09/06/22 28 gauge x 1/2 (BD Insulin Syringe) Diabetic shoes #1 ea 04/11/23 blood-glucose meter #1 ea 06/12/23 blood sugar diagnostic (Blood #200 ea 06/15/23 Glucose Test strips) blood-glucose meter (Accu-Chek #1 ea 06/27/23 Guide Glucose Meter) blood sugar diagnostic (Accu-Chek #100 ea 07/26/23 Guide test strips) Diabetic Shoes with Inserts #1 ea 12/11/24 cam boot to right #1 ea 01/05/25 amlodipine 10 mg tablet 10 mg PO DAILY #30 tabs 02/06/25 aspirin 81 mg tablet,delayed 81 mg PO DAILY #30 tabs 02/06/25 release glimepiride 4 mg tablet 2 mg (1/2 x 4 mg) PO BID #30 tabs 02/06/25 olanzapine 5 mg tablet 2.5 mg (1/2 x 5 mg) PO BID #30 tabs 02/06/25 sennosides 8.6 mg-docusate sodium 1 tab PO BID PRN Constipation #30 02/06/25 50 mg tablet (Stool tabs Softener-Laxative) hydrocodone 5 mg-acetaminophen 325 1 tab PO Q6H PRN pain #14 tabs 04/24/25 mg tablet albuterol sulfate 90 mcg/actuation 2 inh inhalation Q4H PRN shortness 04/27/25 aerosol inhaler of breath or wheezing #6.7 grams insulin syringe-needle U-100 1 mL #100 ea 05/08/25 31 gauge x 5/16 (TRUEplus Insulin) lancets (Accu-Chek Softclix #200 ea 05/08/25 Lancets) semaglutide 0.25 mg or 0.5 mg (2 0.5 mg (0.736 mL) SUBCUT .weekly 05/08/25 mg/3 mL) subcutaneous pen injector #3 mL (Ozempic) Allergies Allergy/AdvReac Type Severity Reaction Status Date / Time azithromycin (From Zithromax) Allergy rash Verified 05/14/25 12:41 cetirizine (From Zyrtec) Allergy rash Verified 05/14/25 12:41 lisinopril (From Zestril) Allergy ALGY-Swell Verified 05/14/25 12:41 Lip/Tongue/Throat metformin AdvReac Intermediate diarrhea Verified 05/14/25 12:41 topiramate (From Topamax) AdvReac Intermediate diarrhea Verified 05/14/25 12:41 Review of Systems General: Reports: ROS unobtainable due to medical condition and ROS unobtainable due to mental status PFSH ED PFSH: Medical History 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 Left shoulder pain Hypothyroid Hyperlipidemia Hypertension Diabetes mellitus Suspected COVID-19 virus infection Hypothyroidism Chronic diarrhea Tension headache, chronic CVA (cerebral vascular accident) TIA (transient ischemic attack) History of aphasia Hx of kidney disease Hx of type 2 diabetes mellitus History of anemia History of GI bleed History of hypothyroidism Hx of primary hypertension History of bipolar disorder History of anxiety History of depression History of posttraumatic stress disorder (PTSD) Surgical History Hx of appendectomy History of back surgery Hx of cholecystectomy Hx of hysterectomy Hx of neck surgery Social History Smoking and tobacco/nicotine status: never used tobacco/nicotine Alcohol intake: current Alcohol intake frequency: holidays/special occasions only Substance/Drug Use: never Physical Exam Narrative: General: Patient is groggy but arousable. She follows commands. Skin: Warm, dry. Head: Normocephalic, atraumatic. Neck: Supple, trachea midline. Eye: Extraocular movements are intact. Ears, nose, mouth and throat: mucosa moist. Cardiovascular: Patient is being paced transcutaneously. Respiratory: Coarse breath sounds, she is not taking great deep breaths. She is requiring oxygen. Gastrointestinal: Soft, Nontender, Non distended Musculoskeletal: Normal ROM, no deformity. Neurological: Groggy but arousable, she answers some questions and follows commands. No obvious focal motor deficits. Psychiatric: Unable to assess Course Vital Signs: Vital signs: Vital Signs Temperature 97.8 F 05/19/25 12:36 Pulse Rate 72 05/19/25 13:17 Respiratory Rate 14 05/19/25 14:20 Blood Pressure 153/87 05/19/25 13:17 Pulse Oximetry 97 05/19/25 14:20 Oxygen Delivery Me thod Room Air 05/19/25 12:26 Fraction of Inspir ed Oxygen 40 05/19/25 14:20 MDM - Altered Mental Status Medical Decision Making Medical decision making: Patient's reason for coming to the emergency room: Syncope, complete heart block, hypotension Social determinants: Patient is currently living in a motel. I reviewed the patient's medical record. 69-year-old female with a history of hypothyroidism, hyperlipidemia, hypertension, diabetes, obesity, stroke/TIA in the past, bipolar disorder and PTSD. I reviewed the patient's current home meds Alternate historians: I did obtain some history from brother and he saw the patient before we intubated her. He says that she was doing very well up until a few days ago when she started having these falls. She was passing out and falling. Likely was having intermittent heart block and today's staying in this with hypotension while not paced. Differential diagnosis including but not limited to and based on the above HPI, review of systems and physical exam: In this patient with altered mental status: Stroke. Hypoglycemia. Metabolic encephalopathy. Infections such as pneumonia, urinary tract infection, Covid-19, Influenza. Electrolyte abnormalities such as hypernatremia. Renal failure / uremia. Hepatic encephalopathy. Hypoxemia. Hypercapnic respiratory failure. Psychosis. Drug or alcohol intoxication. Medication overdose. Orders placed to evaluate differential diagnosis based on the above differential, HPI and physical exam However most likely this patient has been having falls and altered mental status secondary to her complete heart block and hypotension. Unable to obtain EKG initially because she is on an external pacer. This was attempted to be stopped and she went into asystole. She immediately came back and was semialert afterwards. Consultation: I spoke with Dr. Nicolas who is on-call for cardiology. He and his SEX WORKER OR ESCORT saw the patient in the emergency room. They are taking her to the [facility]. It was determined by myself and Dr. Nicolas the flight attendant/inflight manager that likely the safest thing to do for her at this point is intubation so that she can be appropriately sedated while she is being paced. She keeps a good blood pressure while being paced. AB.3 with an O2 sat of 88% on 5 L. With some CO2 retention it was decided the patient needed intubated. Patient gave personal verbal consent as well as the brother . Endotracheal intubation Time: See nursing documentation Confirmed: Patient, procedure, and site correct. Consent: , Emergent. Indication: Respiratory failure. Procedural sedation: Succinylcholine and etomidate . Monitoring: Cardiac, blood pressure, continuous pulse oximetry. Preparation: Pre oxygenated, Inline stabilization of cervical spine maintained, Ensured proper cuff inflation. Technique: Oral intubation: A 7.5 ET tube was inserted, glydescope, visualized cords and ett passing through cords. . Confirmation of tube placement: Bilateral chest rise, Positive color change indicated on end title CO2. Post procedure exam: Equal breath sounds. Complications: None. Performed by: Self. Total time: 10 minutes. Chest x-ray: ET tube in place slightly above the jadon. Multiple pads in place. Some possible vascular congestion. No obvious focal infiltrates. Films were interpreted by myself the emergency room provider and pending final radiology review. Lab Review: Laboratory results were reviewed and interpreted by myself the emergency room physician. Mild leukocytosis. No anemia. BUN is 20 at the time of admission. Lactate is elevated at 3.6. I did order broad-spectrum antibiotics and some fluids. Limited fluids because she is at risk for heart failure at this time. Assessment of risk: Level of risk: High risk patient. Multiple comorbidities. Currently being paced transcutaneously. Hospitalization considerations: Patient is going directly to the [facility] for heart cath and temporary pacemaker. Then to the ICU. Reexamination: Patient is requiring sedation on the ventilator. She is maintaining her blood pressure with transcutaneous pacing. Good O2 sats on the ventilator. CT of the head, CT C-spine both pending at admission. Patient went to the [facility] emergently. There is still some lab pending as well. Consultation: I spoke with Dr. Haq with the hospital service who agrees to admission to the ICU. Assessment and plan: Complete heart block Asystole Respiratory failure Falls Syncope Possible sepsis ?Patient intubated emergently. Did get consent from her and from her brother. ?Dopamine started. An additional dose of atropine given. Attempt to turn off the pacer and she went into asystole. Which rapidly recovered with transcutaneous pacing. - 0.5 L normal saline bolus. Limiting fluids as the patient appears to be somewhat in heart failure secondary to heart block. -Broad-spectrum antibiotics were ordered. Patient went to [facility] but they should be given when she arrives to the ICU. -Sepsis quality measures. -Lactic acid with a reflex was ordered. -Blood cultures were ordered. ?I was not able to evaluate vitals after sepsis fluids as she was admitted to the ICU -I discussed the patient with the hospitalist on-call who is admitting the patient. - Discussed findings and plan with family and with the patient. Answered any questions. - All laboratory values were reviewed and interpreted personally by myself, the ER physician - All imaging was reviewed and interpreted personally by myself, the ER physician. - Evaluation and treatment of this problem were appropriate in the emergency setting Critical Care: -I spent a total of 40 minutes of critical care time managing the patient, independent of any other practitioner. -The time involved in the performance of separately reportable procedures was not counted towards critical care time. Lab Data 05/19/25 12:42 05/19/25 12:42 Radiology Impressions Chest X-Ray 05/19/25 12:21 IMPRESSION: Satisfactorily positioned endotracheal tube. Interstitial and slight vascular prominence; correlate for positive fluid balance. Laboratory Results WBC 14.83 10^3/uL (3.29-11.43) H 05/19/25 12:42 RBC 4.89 10^6/uL (3.85-5.65) 05/19/25 12:42 Hgb 14.30 g/dL (11.27-16.99) 05/19/25 12:42 Hct 46.3 % (36-47) 05/19/25 12:42 MCV 94.7 fl (85-98) 05/19/25 12:42 MCH 29.2 pg (27-33) 05/19/25 12:42 MCHC 30.9 g/dL (30-55) 05/19/25 12:42 RDW 13.5 % (12.1-15.1) 05/19/25 12:42 Plt Count 316 10^3/cmm (157-399) 05/19/25 12:42 MPV 9.6 fL (7.4-10.4) 05/19/25 12:42 Neut % (Auto) 75.0 % 05/19/25 12:42 Lymph % (Auto) 16.3 % 05/19/25 12:42 [place] % (Auto) 6.5 % 05/19/25 12:42 Eos % (Auto) 0.9 % 05/19/25 12:42 Baso % (Auto) 0.5 % 05/19/25 12:42 Neut # (Auto) 11.10 10^3/uL (1.8-7.7) H 05/19/25 12:42 Lymph # (Auto) 2.4 10^3/uL (0.8-4.8) 05/19/25 12:42 [place] # (Auto) 1.0 10^3/uL (0.2-0.9) H 05/19/25 12:42 Eos # (Auto) 0.1 10^3/uL (0.0-0.8) 05/19/25 12:42 Baso # (Auto) 0.1 10^3/uL (0.0-0.1) 05/19/25 12:42 Nucleated RBC % (auto) 0 % 05/19/25 12:42 Nucleated RBCs # 0.0 /100WBC 05/19/25 12:42 PT 12.90 SECONDS (12.1-14.9) 05/19/25 12:42 INR 0.91 (0.8-1.2) 05/19/25 12:42 APTT 26.8 SECONDS (23.9-36.7) 05/19/25 12:42 Specimen Type Arterial 05/19/25 12:26 Sample Site Radial, right 05/19/25 12:26 ABG pH 7.31 (7.35-7.45) L 05/19/25 12:26 ABG pCO2 53.4 mmHg (35-45) H 05/19/25 12:26 ABG pO2 59.2 mmHg (80.0-100.0) L 05/19/25 12:26 ABG PO2/FiO2 Ratio 134 05/19/25 12: ABG HCO3 27.0 mmol/L (22-26) H 05/19/25 12:26 ABG O2 Saturation 89.4 05/19/25 12:26 ABG Base Excess -0.2 mmol/L (-2.0-2.0) 05/19/25 12:26 Chaz Test Pos 05/19/25 12: A-a O2 Gradient 24.7 mmHg (5-10) H 05/19/25 12:26 Hematocrit 43.6 % (37-47) 05/19/25 12: Hgb O2 Saturation 88.0 % (95-100) L 05/19/25 12:26 Carboxyhemoglobin 1.4 %THgb (0.4-20.1) 05/19/25 12:26 Methemoglobin 0.2 % (0.4-1.5) L 05/19/25 12:26 Total Hemoglobin 14.2 g/dL (12-16) 05/19/25 12:26 Sodium 132.0 mmol/L (131-143) 05/19/25 12:26 Potassium 4.9 mmol/L (3.5-5.0) 05/19/25 12:26 Glucose 498.0 mg/dL (70-115) H 05/19/25 12:26 Ionized Calcium 1.2 mmol/L (1.1-1.4) 05/19/25 12:26 O2 Delivery Device Nc 05/19/25 12:26 O2 Liters/Min 6.0 % 05/19/25 12:26 FiO2 44.0 % 05/19/25 12:26 Telephone Station Installer ID Blakero 05/19/25 12:26 Sodium 132 mmol/L (136-145) L 05/19/25 12:42 Potassium 6.2 mmol/L (3.5-5.1) H 05/19/25 12:42 Chloride 91 mmol/L (98-107) L 05/19/25 12:42 Carbon Dioxide 26 mmol/L (22-29) 05/19/25 12:42 Anion Gap 21.2 (5-19) H 05/19/25 12:42 BUN 20 mg/dL (8-23) 05/19/25 12:42 Creatinine 1.0 mg/dL (0.5-0.9) H 05/19/25 12:42 GFR Calculation 54.8 mL/min (90-130) L 05/19/25 12:42 Glucose 489 mg/dL (65-115) H 05/19/25 12:42 POC Glucose 466 mg/dL (70-110) H 05/19/25 12:34 Calculated Osmolality 298 mOsm/kg (285-295) H 05/19/25 12:42 Lactic Acid 3.2 mmol/L (0.5-2.2) H 05/19/25 12:42 Calcium 9.3 mg/dL (8.5-10.5) 05/19/25 12:42 Magnesium 2.1 mg/dL (1.7-2.3) 05/19/25 12:42 Total Bilirubin 0.3 mg/dL (0.15-1.2) 05/19/25 12:42 AST 89 U/L (0-32) H 05/19/25 12:42 ALT 75 U/L (0-33) H 05/19/25 12:42 Alkaline Phosphatase 153 U/L (35-105) H 05/19/25 12:42 Troponin T Baseline 25 ng/L (0-10) H 05/19/25 12:42 C-Reactive Protein 5.5 mg/L (0.0-4.9) H 05/19/25 12:42 NT-Pro-B Natriuret Pep 146 pg/mL (0-125) H 05/19/25 12:42 Total Protein 7.5 g/dL (6.6-8.7) 05/19/25 12:42 Albumin 4.5 g/dL (3.5-5.2) 05/19/25 12:42 Globulin 3.0 g/dL (1.3-4.6) 05/19/25 12:42 TSH 4.71 uIU/mL (0.27-4.20) H 05/19/25 12:42 All radiology interpretation(s) finalized by discharge Discharge Plan Discharge Patient Disposition: Admitted As Inpatient Admit Provider: Gianni Haq Clinical Impression: Complete heart block, Asystole, Respiratory failure, Multiple falls, Syncope Condition: Stable Coding Level of Care Code ED Welfare Aide for Jaret Deal
[2025-05-19] MEDS: propofol 1,000 MG/100 ML INJ 2.64 MG IV (12:59)
[2025-05-19 13:07] LABS: INR 0.91 (0.8-1.2); Prothrombin Time 12.90 SECONDS (12.1-14.9)
[2025-05-19 13:08] LABS: Partial Thromboplastin Time 26.8 SECONDS (23.9-36.7)
[2025-05-19] MEDS: vecuronium 10 mg SDV IVP (13:08)
[2025-05-19 13:12] LABS: Troponin(5th) Baseline 25 ng/L (0-10)
[2025-05-19 13:13] LABS: Lactic Sepsis W/Reflex 3.2 mmol/L (0.5-2.2)
--- NOTE | 2025-05-19 13:13 | W.PM.OPSUD ---
Surgery/Procedure H&P Update DATE OF PROCEDURE: May 19, 2025 DATE H&P PERFORMED: 05/19/25 H&P UPDATE INFORMATION: I have reviewed H&P completed within last 30 days, I have examined patient prior to procedure and No changes to prior documentation PREOP DIAGNOSIS: Complete heart block PRIMARY INDICATION FOR PROCEDURE: Complete heart block PLANNED PROCEDURE: Temporary transvenous pacemaker placement/ Left heart cath possible Percutaneous coronary intervention PATIENT REASSESSED PRIOR TO SEDATION, WITH NO CHANGE NOTED: Yes OTHER PERTINENT EXAM FINDINGS: Intubated, sedated, On transcutaneous pacing. Diminished air entry bilaterally ADDITIONAL INFORMATION: Patient is intubated and sedated
[2025-05-19 13:21] LABS: Reflex Lactate Order REFLEX LACTIC ORDERD
[2025-05-19 13:27] LABS: Alanine Aminotransferase 75 U/L (0-33); Albumin Level 4.5 g/dL (3.5-5.2); Alkaline Phosphatase 153 U/L (35-105); Aspartate Amino Transferase 89 U/L (0-32); Blood Urea Nitrogen 20 mg/dL (8-23); Calcium 9.3 mg/dL (8.5-10.5); Carbon Dioxide 26 mmol/L (22-29); Chloride 91 mmol/L (98-107); Globulin 3.0 g/dL (1.3-4.6); Glucose 489 mg/dL (65-115); Magnesium 2.1 mg/dL (1.7-2.3); NT Pro B Type Natriuretic Pept 146 pg/mL (0-125); Osmolality Calculated 298 mOsm/kg (285-295); Sodium 132 mmol/L (136-145); Thyroid Stimulating Hormone 4.71 uIU/mL (0.27-4.20); Total Protein 7.5 g/dL (6.6-8.7)
--- NOTE | 2025-05-19 13:28 | PC.NURSE ---
Addendum entered by Nydia Olea RN 05/19/25 13:49: PT TO IMPORT AND EXPORT CLERK @[id number] Original Note: UNABLE TO ADMINISTER ABX DUE TO PT TAKEN TO IMPORT AND EXPORT CLERK.
--- NOTE | 2025-05-19 13:29 | PC.NURSE ---
VERBAL CONSENT FOR EMERGENT INTUBATION GIVEN BY PT BROTHER.
[2025-05-19 13:33] LABS: Anion Gap 21.2 (5-19); Potassium 6.2 mmol/L (3.5-5.1)
--- NOTE | 2025-05-19 14:05 | PM.PROC ---
Procedure Note: Date of procedure: 05/19/25 Pre-procedure diagnosis: Complete heart block Post-procedure diagnosis: other (S/p temporary transvenous pacemaker placement. Coronary arteries are patent.) Procedure: S/p temporary transvenous pacemaker placement. Coronary arteries are patent. Performing Provider: Ranjit Nicolas Estimated blood loss (mL): 10 Complications: None Condition: critical Disposition: ICU Coding Level of Care Code Acute Code for Jaret Deal
--- NOTE | 2025-05-19 14:25 | PC.NURSE ---
Arrived from tutorial laboratory supervisor, compliant with vent, temporary pacer to groin
--- NOTE | 2025-05-19 14:28 | PC.NURSE ---
order on sep for iv insulin, sleep lab technologist documentation showed given in sleep lab technologist
--- NOTE | 2025-05-19 14:30 | ECG_ITS ---
[facility]: 2025-05-19 Pat Name: Kaylee Ch Department: Room: [facility] Gender: Female Call Center Assistant: : [id number] Requested By: Dyeanira Barbosa Order Number: [id number] Underwood MD: Mj Espinoza M.D. Measurements Intervals [place] Rate: 75 P: 55 [place]: 199 QRS: 88 QRSD: 102 T: 57 QT: 414 QTc: 465 Interpretive Statements SINUS RHYTHM FOLLOWED BY VENTRICULAR PACED RHYTHM POSSIBLE LEFT ATRIAL ENLARGEMENT [-0.1mV P-WAVE IN V1/V2] ABNORMAL RHYTHM ECG Compared to ECG 05/18/2025 14:27:14 VENTRICUALR PACING IS NEW Electronically Signed On 05-24-2025 17:49:40 TISSUE TECHNOLOGIST by Mj Espinoza M.D. [email or web address]
[2025-05-19] MEDS: linezolid premix 600 MG/300 ML PREMIX 300 MG IV (14:43)
--- NOTE | 2025-05-19 14:46 | PC.NURSE ---
attempted to contact flue dust laborer and cpru to confirm iv insulin administration as documented in cathlab paperwork
[2025-05-19 14:59] LABS: Troponin 5 2HR 19.26 ng/L (0-10)
[2025-05-19 15:03] LABS: Troponin 5 2HR Delta -5.74 ABS# (0-10)
[2025-05-19 15:12] LABS: Lactic Acid level (Lactate) 4.4 mmol/L (0.5-2.2)
--- NOTE | 2025-05-19 15:30 | PM.HP ---
Providers/Chief Complaint Admitting Physician: Gianni Haq MD Primary Care Provider: Carter Yusuf MD Chief Complaint: Fall, Fall hit head History of Present Illness Kaylee Ch is a 69 year old female who was brought to the ER because of reported altered mental status. The details of this are not immediately available. However, patient was reported to have come to the ER yesterday with report of sudden fall and suspected back injury. She was treated empirically, and sent home thereafter. Upon getting to the ER, she was found to be in complete heart block, and therefore started on some transcutaneous pacing. Cardiology was urgently consulted, who immediately the patient to the Boat Cleaning Supervisor from the ER, and put in a permanent pacemaker. Before that, patient was intubated and mechanically ventilated because of inability to maintain her airway. As at the time me seeing the patient, she was already done with the permanent pacemaker placement, and was admitted to the ICU. There was no family member or any close Latiff to give any further information. The above information is all obtained from the ER physician and nursing staff. Review of Systems Narrative: Unable to obtain review of system because of patient's altered mental status and current intubation status. Medications/Allergies Home Medications ?Medication ?Instructions ?Recorded ?Confirmed ?Last Taken ?Type ascorbic acid 7.5 mg-vit E 7.5 1 tab PO DAILY@1000 11/12/20 05/19/25 04/08/25 History unit-biotin 1,250 mcg chewable tablet (Hair,Skin,Nails with Biotin) multivitamin 1 tab PO DAILY@1000 11/12/20 05/19/25 04/08/25 History insulin syringe-needle U-100 1 mL #100 ea 09/06/22 05/19/25 Unknown Rx 28 gauge x 1/2 (BD Insulin Syringe) cyanocobalamin (vitamin B-12) 1,000 mcg PO DAILY 01/03/23 05/19/25 04/08/25 History 1,000 mcg tablet (Vitamin B-12) Diabetic shoes #1 ea 04/11/23 05/19/25 Unknown Rx blood-glucose meter #1 ea 06/12/23 05/19/25 Unknown Rx blood sugar diagnostic (Blood #200 ea 06/15/23 05/19/25 Unknown Rx Glucose Test strips) blood-glucose meter (Accu-Chek #1 ea 06/27/23 05/19/25 Unknown Rx Guide Glucose Meter) blood sugar diagnostic (Accu-Chek #100 ea 07/26/23 05/19/25 Unknown Rx Guide test strips) gabapentin 100 mg capsule 100 mg PO BID 07/18/24 05/19/25 04/09/25 09:00 History potassium chloride 20 mEq 20 meq PO .DAILY@10AM 07/18/24 05/19/25 04/09/25 10:00 History tablet,extended release Diabetic Shoes with Inserts #1 ea 12/11/24 05/19/25 Unknown Rx lamotrigine 200 mg tablet 200 mg PO BID 12/30/24 05/19/25 04/09/25 09:00 History cam boot to right #1 ea 01/05/25 05/19/25 Unknown Rx duloxetine 60 mg capsule,delayed 120 mg PO QAM 01/26/25 05/19/25 04/09/25 08:00 History release fluoxetine 20 mg capsule 20 mg PO QAM 01/26/25 05/19/25 04/09/25 08:00 History levothyroxine 200 mcg tablet 200 mcg PO .DAILY@10AM 01/26/25 05/19/25 04/09/25 10:00 History omega 0-jds-rwx-fish oil 1,200 mg 1 cap PO DAILY 01/30/25 05/19/25 04/08/25 History (144 mg-216 mg) capsule (Fish Oil) amlodipine 10 mg tablet 10 mg PO DAILY #30 tabs 02/06/25 05/19/25 04/09/25 09:00 Rx aspirin 81 mg tablet,delayed 81 mg PO DAILY #30 tabs 02/06/25 05/19/25 04/09/25 08:00 Rx release glimepiride 4 mg tablet 2 mg (1/2 x 4 mg) PO BID #30 tabs 02/06/25 05/19/25 04/09/25 09:00 Rx olanzapine 5 mg tablet 2.5 mg (1/2 x 5 mg) PO BID #30 tabs 02/06/25 05/19/25 04/09/25 08:00 Rx sennosides 8.6 mg-docusate sodium 1 tab PO BID PRN Constipation #30 02/06/25 05/19/25 Unknown Rx 50 mg tablet (Stool tabs Softener-Laxative) diazepam 10 mg tablet 10 mg PO BID PRN Anxiety 04/10/25 05/19/25 04/09/25 08:00 History hydrocodone 5 mg-acetaminophen 325 1 tab PO Q6H PRN pain #14 tabs 04/24/25 05/19/25 Unknown Rx mg tablet albuterol sulfate 90 mcg/actuation 2 inh inhalation Q4H PRN shortness 04/27/25 05/19/25 Unknown Rx aerosol inhaler of breath or wheezing #6.7 grams insulin syringe-needle U-100 1 mL #100 ea 05/08/25 05/19/25 Unknown Rx 31 gauge x 5/16 (TRUEplus Insulin) lancets (Accu-Chek Softclix #200 ea 05/08/25 05/19/25 Unknown Rx Lancets) semaglutide 0.25 mg or 0.5 mg (2 0.5 mg (0.736 mL) SUBCUT .weekly 05/08/25 05/19/25 05/13/25 Rx mg/3 mL) subcutaneous pen injector #3 mL (Ozempic) amiodarone 200 mg tablet (Pacerone) 200 mg PO DAILY 05/19/25 05/19/25 Unknown History atorvastatin 20 mg tablet 20 mg PO .@10AM 05/19/25 05/19/25 Unknown History insulin degludec 100 unit/mL (3 20 unit SUBCUT BEDTIME 05/19/25 05/19/25 Unknown History mL) subcutaneous pen (Tresiba FlexTouch U-100 insulin) metoprolol succinate 25 mg 25 mg PO DAILY 05/19/25 05/19/25 Unknown History tablet,extended release 24 hr propranolol 80 mg capsule,24 80 mg PO BID 05/19/25 05/19/25 Unknown History hr,extended release quetiapine 100 mg tablet 100 mg PO BEDTIME 05/19/25 05/19/25 Unknown History Allergies Allergy/AdvReac Type Severity Reaction Status Date / Time azithromycin (From Zithromax) Allergy rash Verified 05/14/25 12:41 cetirizine (From Zyrtec) Allergy rash Verified 05/14/25 12:41 lisinopril (From Zestril) Allergy ALGY-Swell Verified 05/14/25 12:41 Lip/Tongue/Throat metformin AdvReac Intermediate diarrhea Verified 05/14/25 12:41 topiramate (From Topamax) AdvReac Intermediate diarrhea Verified 05/14/25 12:41 PFSH Acute PFSH: Medical History 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 Left shoulder pain Hypothyroid Hyperlipidemia Hypertension Diabetes mellitus Suspected COVID-19 virus infection Hypothyroidism Chronic diarrhea Tension headache, chronic CVA (cerebral vascular accident) TIA (transient ischemic attack) History of aphasia Hx of kidney disease Hx of type 2 diabetes mellitus History of anemia History of GI bleed History of hypothyroidism Hx of primary hypertension History of bipolar disorder History of anxiety History of depression History of posttraumatic stress disorder (PTSD) Surgical History Hx of appendectomy History of back surgery Hx of cholecystectomy Hx of hysterectomy Hx of neck surgery Social History Smoking and tobacco/nicotine status: never used tobacco/nicotine Alcohol intake: current Alcohol intake frequency: holidays/special occasions only Substance/Drug Use: never Vitals/I&O/Wt Last Vital Signs Temp 97.8 F 05/19/25 12:36 Pulse 70 05/19/25 15:20 Resp 14 05/19/25 14:20 BP 116/83 05/19/25 15:20 Pulse Ox 97 05/19/25 15:20 O2 Del Method Room Air 05/19/25 12:26 FiO2 40 05/19/25 14:20 05/19/25 05/19/25 05/19/25 06:59 14:59 22:59 Intake Total 3.778 / 3.778 Balance 3.778 / 3.778 Weight last 48 hrs Weight 89.5 kg Weight 87.997 kg Physical Exam Narrative: General: Unconscious/sedated, mechanically intubated mechanically ventilated. No obvious distress. Chest: Bilateral equal air entry. No obvious crackles appreciated. CVS: Heart rate remains in a regular. Abdomen: Obese abdomen. Soft. Nontender. No obvious organomegaly. Neuro: No obvious deficits. Otherwise, further deferred. Extremities: No obvious pedal edema. MSK: No bony deformity or joint effusions. Skin: No obvious rashes. Mildly cool extremities. Data 05/19/25 12:42 05/19/25 12:42 Micro: Microbiology 05/19/25 13:25 Gram Stain - Final Sputum - Endotracheal Tube Aspirate CXR: Radiologist's impression: IMPRESSION: Satisfactorily positioned endotracheal tube. Interstitial and slight vascular prominence; correlate for positive fluid balance. EKG 1: My Interpretation: Reviewed, shows obvious sinus tachycardia with some PVCs. EKG 2: My Interpretation: Sinus tachycardia, with some paced rhythm. ABG Interpretation 1: 05/19/25 05/19/25 12:26 15:36 ABG pH 7.31 L 7.41 ABG pCO2 53.4 H 45.9 H ABG pO2 59.2 L 70.5 L ABG HCO3 27.0 H 29.1 H ABG O2 Saturation 89.4 95.4 ABG Base Excess -0.2 3.7 H A&P Assessment and plan 1. Complete heart block: 2. Acute hyperkalemia: 3. Status post placement of cardiac pacemaker: 4. On mechanically assisted ventilation: 5. Diabetic peripheral neuropathy associated with type 2 diabetes mellitus: 6. Elevated troponin: Plan: 1. Acute respiratory failure with hypoxia and hypercapnia; currently on mechanical ventilation: Continue mechanical ventilation; respiratory therapy to evaluate and treat. Consider pulmonology consult as may be needed. 2. Complete heart block, status post permanent cardiac pacemaker: Currently stable from this very standpoint. Continue to defer to the collar starcher for continued expert treatment of this. 3. Acute hyperkalemia with associated hyperglycemia: Patient currently on some as needed subcutaneous insulin; this will likely correct this with time. Continue IV rehydration, which will most likely further help correct these. Repeat BMP this evening, and make further adjustments. Monitor closely, otherwise. 4. Type II NSTEMI/troponin leak: See #2 above. Defer to the collar starcher for further evaluation and treatment and advice. 5. Type 2 diabetes mellitus with insulin therapy: See #3 above. 6. Hypothyroidism: Possibly but not very likely contributing to the complete heart block component. Otherwise, an old problem. TSH is mildly elevated at 4.71. Replace thyroxine orally when patient wakes up. Other Plans: Currently stable patient. Treat other concomitant symptoms empirically. Further plans to be adjusted as clinical picture evolves. See my orders for more details. PDMP PDMP Reviewed: Not Reviewed Attestations Medical Necessity Statement*: Patient admitted for apparent severe clinical condition, as outlined in the Assessment & Plan section above. Patient will need up to 2 midnight stay, estimated, at least, to adequately and appropriately treat the severe problem started acute hyperkalemia, hyperglycemia, hypercapnia with associated respiratory failure and hypoxia, etc., and optimally control these and the other above-named clinical conditions,. Coding Level of Care Code 81911 Diagnoses Complete heart block I44.2 Acute hyperkalemia E87.5 Status post placement of cardiac pacemaker Z95.0 On mechanically assisted ventilation Z99.11 Diabetic peripheral neuropathy associated with type 2 diabetes mellitus E11.42 Elevated troponin R79.89
[2025-05-19 15:47] LABS: ABG PCO2 45.9 mmHg (35-45); ABG PH Result 7.41 (7.35-7.45); Alveolar-Arterial Oxygen Gradi 20.4 mmHg (5-10); Arterial Blood Gas Hematocrit 41.2 % (37-47); Blood Gas Allen Test Pos; Blood Gas Operator Identificat CAK; Blood Gas Sample Site Radial, left; Blood Gas Sample Type Arterial; Blood Gas Tidal Volume 0.40; Carboxyhemoglobin 1.1 %THgb (0.4-20.1); Glucose Level-ABG 345.0 mg/dL (70-115); HCO3 ABG 29.1 mmol/L (22-26); Ionized Calcium Level - ABG 1.2 mmol/L (1.1-1.4); Methemoglobin 1.1 % (0.4-1.5); Oxygen Saturation ABG 95.4; PEEP 6.0 cmH20; PO2 ABG 70.5 mmHg (80.0-100.0); PO2 FiO2 Ratio Arterial Blood 176; Potassium Level - ABG 3.9 mmol/L (3.5-5.0); Sodium Level - ABG 134.0 mmol/L (131-143)
--- NOTE | 2025-05-19 17:18 | ECG_ITS ---
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 Measurements Intervals [place] Rate: 69 P: 0 OR: 0 QRS: -64 QRSD: 193 T: 105 QT: 531 QTc: 570 Interpretive Statements ELECTRONIC VENTRICULAR PACEMAKER Compared to ECG 05/19/2025 14:30:17 ventricular pacing now 100% Electronically Signed On 05-24-2025 17:45:33 VAT WASHER by Mj Espinoza M.D. [id number]
--- NOTE | 2025-05-19 17:50 | PC.NURSE ---
BP 81/49 decreased propofolol bp came to wnl, patient became unf=comfortable with decreased propofol Dr. Haq approved fentanyl roshan
--- NOTE | 2025-05-19 17:52 | PC.NURSE ---
Pacer pacing on T wave at times, observed by Kalpesh STRONG who notified DR Becerra, advised to monitor overnight plan to reassess pacemaker need in AM
[2025-05-19] MEDS: fentaNYL 1,000 MCG/100 ML BAG 2.5 MCG IV (18:15)
[2025-05-19 19:28] LABS: Glucose Urine UA 3+ (Normal); Nitrate Urine Negative (Negative); Specific Gravity, Urine 1.029 (1.005-1.030)
[2025-05-19 19:35] LABS: PCP Screen Urine Negative (Negative)
[2025-05-19 19:35] LABS: Troponin 5 6HR 22.93 ng/L (0-10)
[2025-05-19 19:38] LABS: Troponin 5 6HR Delta -2.07 ng/L (0-12)
[2025-05-19 19:51] LABS: Respiratory Syncytial Virus Ce NEGATIVE (Negative); SARS-CoV-2 PCR NEGATIVE (Negative)
--- NOTE | 2025-05-19 20:49 | PC.NURSE ---
Received call from CT regarding two CTs ordered on patient by ER doctor that had not yet been taken. CTs were ordered STAT for 1230 on 05/19. Contacted Dr Ramos to inquire if he still wished to have CTs taken. Let him know that patient's blood pressure was stable as well as patient being stable on the ventilator, but that patient's temporary pacemaker was sometimes pacing on the T-wave and patient's rhythm was not stable. Received order to hold CT scans until the morning of 05/20. Order updated to reflect this.
[2025-05-19] MEDS: propofol 1,000 MG/100 ML INJ 15 MG IV (22:13)
[2025-05-20] VITALS (107 sets, daily range): BP systolic 75–183; BP diastolic 48–106; PULSE 66–139; RESP 16–18; TEMP 37.1; O2SAT 83–95
--- NOTE | 2025-05-20 03:17 | PC.NURSE ---
Attempted to place OG tube but met with resistance. Will hold off on OG placement at this time due to patient having no PO medications ordered.
[2025-05-20 04:13] LABS: ABG PCO2 40.6 mmHg (35-45); ABG PH Result 7.47 (7.35-7.45); Arterial Blood Gas Hematocrit 39.9 % (37-47); Blood Gas Allen Test Pos; Blood Gas Sample Site Radial, right; Blood Gas Sample Type Arterial; Blood Gas Tidal Volume 0.40; HCO3 ABG 29.3 mmol/L (22-26); PO2 ABG 62.1 mmHg (80.0-100.0); PO2 FiO2 Ratio Arterial Blood 155
[2025-05-20 04:14] LABS: PEEP 6.0 cmH20
[2025-05-20 05:28] LABS: Hematocrit 37.2 % (36-47); Hemoglobin 12.10 g/dL (11.27-16.99); Mean Corpuscular HGB Conc 32.5 g/dL (30-55); Mean Corpuscular Hemoglobin 29.5 pg (27-33); Mean Corpuscular Volume 90.7 fl (85-98); Nucleated Red Blood Cells % 0 %; Platelet Count 270 10^3/cmm (157-399); Red Blood Count 4.10 10^6/uL (3.85-5.65); White Blood Count 11.97 10^3/uL (3.29-11.43)
[2025-05-20 05:45] LABS: Alanine Aminotransferase 49 U/L (0-33); Albumin Level 3.2 g/dL (3.5-5.2); Alkaline Phosphatase 108 U/L (35-105); Anion Gap 15.5 (5-19); Aspartate Amino Transferase 38 U/L (0-32); Blood Urea Nitrogen 17 mg/dL (8-23); Calcium 8.1 mg/dL (8.5-10.5); Carbon Dioxide 25 mmol/L (22-29); Chloride 100 mmol/L (98-107); Globulin 2.6 g/dL (1.3-4.6); Glucose 195 mg/dL (65-115); Magnesium 1.8 mg/dL (1.7-2.3); Osmolality Calculated 291 mOsm/kg (285-295); Potassium 3.5 mmol/L (3.5-5.1); Sodium 137 mmol/L (136-145); Total Protein 5.8 g/dL (6.6-8.7)
[2025-05-20] MEDS: fentaNYL 1,000 MCG/100 ML BAG 10 MCG IV (06:23)
[2025-05-20] MEDS: propofol 1,000 MG/100 ML INJ 30 MG IV (06:38)
--- NOTE | 2025-05-20 08:00 | CTR_ITS ---
PROCEDURE INFORMATION: Exam: CT Head Without Contrast Exam date and time: 05/20/2025 3:50 PM Age: 69 years old Clinical indication: Injury or trauma; Fall; Concussion/head injury; Additional info: Fall, head injury TECHNIQUE: Imaging protocol: Computed tomography of the head without contrast. Radiation optimization: All CT scans at this facility use at least one of these dose optimization techniques: automated exposure control; mA and/or kV adjustment per patient size (includes targeted exams where dose is matched to clinical indication); or iterative reconstruction. COMPARISON: CT head wo con* [id number] 05/18/2025 1:33 PM RADIATION DOSE METRICS: Total DLP (mGy-cm): 1200.08 FINDINGS: Brain: No acute intracranial hemorrhage. No edema. No mass effect. No focal abnormality in brain parenchyma. Cerebral ventricles: No hydrocephalus. The ventricles and sulci are mildly prominent in size in keeping with mild brain atrophy. Paranasal sinuses: Visualized sinuses are unremarkable. No fluid levels. Mastoid air cells: No mastoid effusion. Bones: Questionable acute fracture in the left nasal bone (series 3, image 1). No acute skull fracture. Soft tissues: Unremarkable. CT/CT head wo con* [id number] IMPRESSION: No CT evidence of acute intracranial hemorrhage, mass or acute infarction. No acute skull fracture. Questionable acute fracture of the left nasal bone, for clinical correlation.
--- NOTE | 2025-05-20 08:00 | CTR_ITS ---
PROCEDURE INFORMATION: Exam: CT Cervical Spine Without Contrast Exam date and time: 05/20/2025 3:50 PM Age: 69 years old Clinical indication: Injury or trauma; Fall; Blunt trauma; Injury date: 05/19/2025; Injury details: PT was found on floor and brought in. ; Additional info: Fall, neck pain TECHNIQUE: Imaging protocol: Computed tomography of the cervical spine without contrast. Radiation optimization: All CT scans at this facility use at least one of these dose optimization techniques: automated exposure control; mA and/or kV adjustment per patient size (includes targeted exams where dose is matched to clinical indication); or iterative reconstruction. COMPARISON: CT cervical spin wo con* [id number] 05/18/2025 1:33 PM RADIATION DOSE METRICS: Total DLP (mGy-cm): 1200.8 FINDINGS: Tubes, catheters and devices: Endotracheal tube is in place. Bones: No acute fracture. Normal alignment. Status post C5-C7 fusion with anterior internal fixation plate. Marginal disc osteophyte complexes are causing mild spinal stenosis at C5-C6 and C6-C7 levels. Degenerative changes in the uncovertebral and facet joints are contributing to foraminal stenosis (mild right at C3-C4, moderate bilateral at C4-C5, moderate right at C5-C6, moderate right at C6-C7 level). Lungs: Lung apices are normal. Soft tissues: Unremarkable. CT/CT cervical spin wo con* [id number] IMPRESSION: No acute fracture. Postsurgical and degenerative changes as described.
--- NOTE | 2025-05-20 09:21 | P.PN_ITS ---
Subjective 2 Subjective: Seen again this morning in the ICU, patient is still intubated and mechanically ventilated. The overnight stay has been uneventful. She is awaiting further review by the intern product marketing manager. Vitals/I&O/Wt Last Vital Signs Temp 98.7 F 05/20/25 08:18 Pulse 72 05/20/25 08:12 Resp 16 05/20/25 09:05 BP 115/63 05/20/25 06:15 Pulse Ox 92 05/20/25 09:05 O2 Del Method Mechanical Ventilation 05/20/25 08:02 FiO2 40 05/20/25 09:05 05/19/25 05/20/25 05/20/25 22:59 06:59 14:59 Intake Total 415.377 / 369.557 9689.375 / 1588.530 Output Total 800 / 800 400 / 1200 Balance -384.623 / -380.845 769.375 / 388.530 Weight last 48 hrs Weight 89.5 kg Weight 87.997 kg Physical Exam 2 Narrative: General: Intubated, sedated and mechanically ventilated. No obvious respiratory distress. Chest/Resp: Bilateral equal air entry; chest clinically clear. CVS: Rhythm: Regular heart rate and rhythm. No obvious murmurs appreciated. GI: Soft and non-tender abdomen. No obvious organomegaly. Extremities: Bilateral equal pulses. No obvious pitting pedal edema. Data 05/20/25 04:44 05/20/25 04:44 Micro: Microbiology 05/19/25 13:25 Gram Stain - Final Sputum - Endotracheal Tube Aspirate Other Imaging: My impression: No new imaging results to review today A&P Assessment and plan 1. Complete heart block: 2. On mechanically assisted ventilation: 3. Acute respiratory failure with hypoxia and hypercapnia: 4. Presence of temporary transvenous cardiac pacemaker: 5. Elevated troponin: 6. Acute hyperkalemia: 7. Hyperglycemia due to type 2 diabetes mellitus: 8. Hypothyroidism: Plan: 1. Acute metabolic encephalopathy due to complete heart block: Patient currently on temporary pacemaker. Intubated and mechanically ventilated at the moment. Defer to the intern product marketing manager for continued management of this. 2. Acute respiratory failure with hypercapnia and hypoxia: Like mentioned above, patient is currently intubated and mechanically ventilated. I had gone ahead and put in a consult with the director of application development for further advice. In the meantime, we will continue ongoing treatment plans on this. 3. Hyperglycemia due to type 2 diabetes mellitus: Patient currently in notes eating, given current intubation. Currently on sliding scale insulin; continue with this. 4. Acute hyperkalemia with mild prerenal failure: This is all resolved at the moment. Continue cautious IV rehydration, and monitor closely. Repeat BMP in the morning. 5. PDMP PDMP Reviewed: Not Reviewed Attestations 2 Medical Necessity Statement*: Still acutely ill patient, currently. Mechanically ventilated. Will require an eventual permanent treatment of the complete heart block; potential transfer to higher level of care possible. Patient likely to remain in the ICU for the next 1 to 2 days, while we optimally treat current acute pertinent with associated other comorbidities Coding Level of Care Code Acute Code for [facility] Fwd Diagnoses Complete heart block I44.2 On mechanically assisted ventilation Z99.11 Acute respiratory failure with hypoxia and hypercapnia J96.01; J96.02 Presence of temporary transvenous cardiac pacemaker Z95.0 Elevated troponin R79.89 Acute hyperkalemia E87.5 Hyperglycemia due to type 2 diabetes mellitus E11.65 Hypothyroidism E03.9
--- NOTE | 2025-05-20 09:56 | P.PN_ITS ---
<Statement entered by Ranjit Nicolas M.D - 05/23/25 19:34> Patient was cared for in conjunction with an advanced practice practitioner. I reviewed the chart and all pertinent data including imaging, telemetry, and laboratory results. I discussed the patient in detail with the advanced practice practitioner. Please see their note for agreed upon plan of care and results for the patient. Subjective 2 Subjective: She underwent coronary angiogram yesterday, revealing no significant coronary stenosis. Transvenous pacemaker still in place. Noting intrinsic rhythm, settings changed to demand pacing. She is waking up able to nod yes and no to questions, would like to wean to extubate when possible. Vitals/I&O/Wt Last Vital Signs Temp 98.7 F 05/20/25 08:18 Pulse 72 05/20/25 08:12 Resp 16 05/20/25 09:05 BP 115/63 05/20/25 06:15 Pulse Ox 92 05/20/25 09:05 O2 Del Method Mechanical Ventilation 05/20/25 08:02 FiO2 40 05/20/25 09:05 05/19/25 05/20/25 05/20/25 22:59 06:59 14:59 Intake Total 415.377 / 5605.222 7377.375 / 1588.530 Output Total 800 / 1200 400 / 1200 Balance -384.623 / 388.530 769.375 / 388.530 Weight last 48 hrs Weight 197 lb 5.019 oz Weight 194 lb Physical Exam 2 Const: COMMON NORMALS: no acute distress GENERAL APPEARANCE: cooperative ORIENTATION/CONSCIOUSNESS: Yes awake OTHER: intubated, shaking head yes and no to questions Chest: COMMONS NORMALS: normal inspection of the chest and normal palpation of entire chest wall CHEST: Yes Symmetrical chest wall rise Resp: COMMON NORMALS: normal respiratory effort, No retractions, No use of accessory muscles and clear to auscultation bilaterally AUSCULTATION: clear to auscultation bilaterally Cardio: COMMON NORMALS: regular rate, regular rhythm, S1 normal heart sound present, S2 normal heart sound present, No gallops present (Cardio), No clicks present (Cardio), No murmurs present (Cardio) and No rub (Cardio) RATE: r egular rate RHYTHM: regular rhythm HEART SOUNDS: S1 normal heart sound present and S2 normal heart sound present PERIPHERAL PULSES: radial pulses present positive right 2+ and femoral pulses present positive right 2+ Neuro: COMMON NORMALS: moves all extremities Skin: WOUNDS: Yes surgical site (no hematoma palpable) Details: no odor Data 05/20/25 04:44 05/20/25 04:44 Micro: Microbiology 05/19/25 13:25 Gram Stain - Final Sputum - Endotracheal Tube Aspirate A&P Assessment and plan 1. Presence of temporary transvenous cardiac pacemaker: 2. Elevated troponin: 3. Complete heart block: 4. Hypertension: 5. Diabetes mellitus: 6. History of bipolar disorder: 7. Hypothyroid: Plan: She has had some periods of complete heart block since the change of pacemaker settings to demand pacing. Will continue to observe and leave transvenous pacemaker in place for now. PDMP PDMP Reviewed: Not Reviewed Attestations 2 Medical Necessity Statement*: Transvenous pacing complete heart block intubated Coding Level of Care Code Acute Code for [facility] Fwd Diagnoses Presence of temporary transvenous cardiac pacemaker Z95.0 Elevated troponin R79.89 Complete heart block I44.2 Hypertension I10 Diabetes mellitus E11.9 History of bipolar disorder Z86.59 Hypothyroid E03.9
[2025-05-20] MEDS: propofol 1,000 MG/100 ML INJ 7.92 MG IV (15:10)
--- NOTE | 2025-05-20 15:57 | PM.CONSULT ---
Providers/Reason For Consult Consulting Physician/Specialty*: Gianni Haq MD Reason for Consult*: Mechanical ventilation Attending Physician: Gianni Haq MD Primary Care Provider: Carter Yusuf MD History of Present Illness History of Present Illness Kaylee Ch is a 69 year old female with past medical history of chronic back pain issues, diabetes, hypertension, past TIA, history of aphasia, on multiple pain medications at home is brought in by family after she sustained a fall injury. She was brought to the ER and was found to have poor mentation blood pressure was found to be low as well as heart rate. She was found to be in complete heart block cardiology consulted immediately and taken to the [facility] and a transvenous pacing started. is at bedside does not report patient was having any symptoms other than confusion prior to the fall. Currently has a c-collar on her neck awake wanting to be extubated less agitated. Pacing set at 58 but currently sinus rhythm heart rate at 78. Review of systems unobtainable patient is on the vent Medications/Allergies Home Medications ?Medication ?Instructions ?Recorded ?Confirmed ?Last Taken ?Type ascorbic acid 7.5 mg-vit E 7.5 1 tab PO DAILY@1000 11/12/20 05/19/25 04/08/25 History unit-biotin 1,250 mcg chewable tablet (Hair,Skin,Nails with Biotin) multivitamin 1 tab PO DAILY@1000 11/12/20 05/19/25 04/08/25 History insulin syringe-needle U-100 1 mL #100 ea 09/06/22 05/19/25 Unknown Rx 28 gauge x 1/2 (BD Insulin Syringe) cyanocobalamin (vitamin B-12) 1,000 mcg PO DAILY 01/03/23 05/19/25 04/08/25 History 1,000 mcg tablet (Vitamin B-12) Diabetic shoes #1 ea 04/11/23 05/19/25 Unknown Rx blood-glucose meter #1 ea 06/12/23 05/19/25 Unknown Rx blood sugar diagnostic (Blood #200 ea 06/15/23 05/19/25 Unknown Rx Glucose Test strips) blood-glucose meter (Accu-Chek #1 ea 06/27/23 05/19/25 Unknown Rx Guide Glucose Meter) blood sugar diagnostic (Accu-Chek #100 ea 07/26/23 05/19/25 Unknown Rx Guide test strips) gabapentin 100 mg capsule 100 mg PO BID 07/18/24 05/19/25 04/09/25 09:00 History potassium chloride 20 mEq 20 meq PO .DAILY@10AM 07/18/24 05/19/25 04/09/25 10:00 History tablet,extended release Diabetic Shoes with Inserts #1 ea 12/11/24 05/19/25 Unknown Rx lamotrigine 200 mg tablet 200 mg PO BID 12/30/24 05/19/25 04/09/25 09:00 History cam boot to right #1 ea 01/05/25 05/19/25 Unknown Rx duloxetine 60 mg capsule,delayed 120 mg PO QAM 01/26/25 05/19/25 04/09/25 08:00 History release fluoxetine 20 mg capsule 20 mg PO QAM 01/26/25 05/19/25 04/09/25 08:00 History levothyroxine 200 mcg tablet 200 mcg PO .DAILY@10AM 01/26/25 05/19/25 04/09/25 10:00 History omega 0-bff-zwj-fish oil 1,200 mg 1 cap PO DAILY 01/30/25 05/19/25 04/08/25 History (144 mg-216 mg) capsule (Fish Oil) amlodipine 10 mg tablet 10 mg PO DAILY #30 tabs 02/06/25 05/19/25 04/09/25 09:00 Rx aspirin 81 mg tablet,delayed 81 mg PO DAILY #30 tabs 02/06/25 05/19/25 04/09/25 08:00 Rx release glimepiride 4 mg tablet 2 mg (1/2 x 4 mg) PO BID #30 tabs 02/06/25 05/19/25 04/09/25 09:00 Rx olanzapine 5 mg tablet 2.5 mg (1/2 x 5 mg) PO BID #30 tabs 02/06/25 05/19/25 04/09/25 08:00 Rx sennosides 8.6 mg-docusate sodium 1 tab PO BID PRN Constipation #30 02/06/25 05/19/25 Unknown Rx 50 mg tablet (Stool tabs Softener-Laxative) diazepam 10 mg tablet 10 mg PO BID PRN Anxiety 04/10/25 05/19/25 04/09/25 08:00 History hydrocodone 5 mg-acetaminophen 325 1 tab PO Q6H PRN pain #14 tabs 04/24/25 05/19/25 Unknown Rx mg tablet albuterol sulfate 90 mcg/actuation 2 inh inhalation Q4H PRN shortness 04/27/25 05/19/25 Unknown Rx aerosol inhaler of breath or wheezing #6.7 grams insulin syringe-needle U-100 1 mL #100 ea 05/08/25 05/19/25 Unknown Rx 31 gauge x 5/16 (TRUEplus Insulin) lancets (Accu-Chek Softclix #200 ea 05/08/25 05/19/25 Unknown Rx Lancets) semaglutide 0.25 mg or 0.5 mg (2 0.5 mg (0.736 mL) SUBCUT .weekly 05/08/25 05/19/25 05/13/25 Rx mg/3 mL) subcutaneous pen injector #3 mL (Ozempic) amiodarone 200 mg tablet (Pacerone) 200 mg PO DAILY 05/19/25 05/19/25 Unknown History atorvastatin 20 mg tablet 20 mg PO .@10AM 05/19/25 05/19/25 Unknown History insulin degludec 100 unit/mL (3 20 unit SUBCUT BEDTIME 05/19/25 05/19/25 Unknown History mL) subcutaneous pen (Tresiba FlexTouch U-100 insulin) metoprolol succinate 25 mg 25 mg PO DAILY 05/19/25 05/19/25 Unknown History tablet,extended release 24 hr propranolol 80 mg capsule,24 80 mg PO BID 05/19/25 05/19/25 Unknown History hr,extended release quetiapine 100 mg tablet 100 mg PO BEDTIME 05/19/25 05/19/25 Unknown History Allergies Allergy/AdvReac Type Severity Reaction Status Date / Time azithromycin (From Zithromax) Allergy rash Verified 05/14/25 12:41 cetirizine (From Zyrtec) Allergy rash Verified 05/14/25 12:41 lisinopril (From Zestril) Allergy ALGY-Swell Verified 05/14/25 12:41 Lip/Tongue/Throat metformin AdvReac Intermediate diarrhea Verified 05/14/25 12:41 topiramate (From Topamax) AdvReac Intermediate diarrhea Verified 05/14/25 12:41 Current Medications Generic Name Dose Route Start Last Admin Trade Name Toni PRN Reason Stop Dose Admin Albuterol/Ipratropium 3 ml 05/19/25 20:00 05/20/25 13:28 Ipratropium-Albuterol 3 Ml Neb INHALATION 3 ml Q6H.RESP JACQUELINE Administration Enoxaparin Sodium 40 mg 05/19/25 15:45 05/20/25 15:04 Enoxaparin 40 Mg/0.4 Ml Syringe SUBCUT 40 mg Q24H JACQUELINE Administration Dopamine HCl/Dextrose 400 mg in 250 mls @ 16.534 mls/hr 05/19/25 12:30 05/19/25 12:59 Intropin Drip IV 0 mcg/kg/min CONT JACQUELINE 0 mls/hr Protocol Titration 5 MCG/KG/MIN Propofol 1,000 mg in 100 mls @ 0 mls/hr 05/19/25 13:00 05/20/25 15:10 Diprivan IV 15 mcg/kg/min .Q0M JACQUELINE 7.92 mls/hr Protocol Administration Per Protocol Sodium Chloride 1,000 mls @ 100 mls/hr 05/19/25 14:15 05/20/25 15:10 Sodium Chloride 0.9% IV 100 mls/hr .Q10H JACUQELINE Administration Fentanyl 1,000 mcg in 100 mls @ 0 mls/hr 05/19/25 17:45 05/20/25 11:00 Sublimaze IV 25 mcg/hr .Q0M JACQUELINE 2.5 mls/hr Protocol Titration Per Protocol Insulin Human Lispro 0 unit 05/19/25 15:45 05/20/25 15:04 Insulin Lispro 100 Unit/1 Ml SUBCUT 3 unit Q6H JACQUELINE Administration Protocol PFSH Acute PFSH: Medical History (Updated 05/20/25 @ 14:01 by Gianni Haq MD) 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 Left shoulder pain Hypothyroid Hyperlipidemia Hypertension Diabetes mellitus Suspected COVID-19 virus infection Hypothyroidism Chronic diarrhea Tension headache, chronic CVA (cerebral vascular accident) TIA (transient ischemic attack) History of aphasia Hx of kidney disease Hx of type 2 diabetes mellitus History of anemia History of GI bleed History of hypothyroidism Hx of primary hypertension History of bipolar disorder History of anxiety History of depression History of posttraumatic stress disorder (PTSD) Surgical History (Updated 05/19/25 @ 17:54 by Gianni Haq MD) Hx of appendectomy History of back surgery Hx of cholecystectomy Hx of hysterectomy Hx of neck surgery Social History Smoking and tobacco/nicotine status: never used tobacco/nicotine Alcohol intake: current Alcohol intake frequency: holidays/special occasions only Substance/Drug Use: never Vitals/I&O/Wt Last Vital Signs Temp 98.7 F 05/20/25 08:18 Pulse 81 05/20/25 15:15 Resp 16 05/20/25 15:20 BP 144/80 05/20/25 15:15 Pulse Ox 93 05/20/25 15:20 O2 Del Method Mechanical Ventilation 05/20/25 13:29 FiO2 40 05/20/25 15:20 05/20/25 05/20/25 05/20/25 06:59 14:59 22:59 Intake Total 1169.375 / 6358.587 2375.667 / 1138.667 Output Total 400 / 1200 Balance 769.375 / 935.218 9153.667 / 1138.667 Weight last 48 hrs Weight 197 lb 5.019 oz Weight 194 lb Physical Exam Narrative: General: Intubated agitated awake HEENT: EOMI bilaterally c-collar in place Pulmonary: Rhonchorous breath sounds anteriorly Cardiovascular: rrr, nl s1s2, Abdomen: soft, nt, nd, no r/g, Extremities: no edema Neurologic: grossly intact Data 05/20/25 04:44 05/20/25 04:44 Micro: Microbiology 05/19/25 13:25 Gram Stain - Final Sputum - Endotracheal Tube Aspirate Sputum Culture - Preliminary A&P Assessment and plan 1. Acute respiratory failure with hypoxia and hypercapnia: 2. On mechanically assisted ventilation: Plan: # Acute hypoxemic respiratory failure-POA Currently on ventilator tolerating well. Ventilator VC-AC-tidal volumes 400, respiratory rate 16, PEEP of 6 to 40% FiO2. ABG reviewed from today pH of 7.47, pCO2 40, PaO2 of 62, PF ratio low at 155 -Continue ipratropium nebulizers Q6, will add Mucinex Bronchopulmonary hygiene. Sputum cultures to be sent. Although too soon to suspect aspiration pneumonia but she could have had this prior to admission. Currently does meet criteria for pneumonia. WBC count up to 11.9 # Aspiration pneumonitis-right middle lobe infiltrates on chest u-jiv-thadydx on admission. Will start Zosyn despite cultures. If negative and chest x-ray clear next day 1 may end up stopping antibiotics. # Acute encephalopathy-most likely related to multiple sedating pain medications appointment including gabapentin and diazepam. CT head results reviewed with no acute findings no skull fracture noted. 05/19/2025. Urine drug screen positive for opiates, benzos # Right midlung pneumonia-POA Will start Zosyn follow-up cultures. Chest x-ray reviewed. Shows right lung infiltrate most likely is normal. Although underlying pulmonary auscultation cannot be ruled out. BNP was 146. Will order echocardiogram.. Influenza AB RSV and SARS-CoV-2 negative. # Bradycardia with complete heart block status post transvenous pacing-unclear etiology but could be multiple AV april blocking agents taken at home. Patient is on gabapentin fluoxetine amlodipine and diazepam metoprolol Seroquel as well as propranolol 80 mg daily. Currently in sinus rhythm rate 98. Again temporarily paced transvenous. Cardiology follow-up appreciated. Keep off of all AV april blocking agents for now # I-wchzfy-tcvp in place until after extubation. May need to rule out ligamental injury postextubation. High risk for intubation # Mildly elevated troponins-type II most likely stress-induced ischemia # Mild transaminitis # Hypoalbuminemia # Morbid obesity # Diabetes-medium dose insulin sliding scale to be initiated. Avoid hypoglycemia keep blood sugars between !40-1 80 # Sedation-avoid propofol and Precedex secondary to bradycardia and complete heart block. Use Versed and fentanyl pushes along with Versed drip as needed. # Nutrition-use dextrose drip if needed to keep blood sugars between 140-180 # CODE STATUS-full ## Goals of care-discussed with at bedside May need a couple days on the to help resolve her pneumonia and acute respiratory failure. The high probability of a clinically significant, sudden or life threatening deterioration of the patient's [Respiratory, cardiac and renal] system(s) required my full and direct attention, intervention and personal management. The critical care time is as shown. This time is in addition to time spent performing any reported procedures but includes the following: [x] Data and vital sign review and interpretation [x] Patient assessment, examination and intervention [x] Documentation [x] Medication orders and management Critical Care Time (min): 45 PDMP PDMP Reviewed: Not Reviewed Coding Level of Care Code Critical Care >/= 30 minutes Diagnoses Acute respiratory failure with hypoxia and hypercapnia J96.01; J96.02 On mechanically assisted ventilation Z99.11
--- NOTE | 2025-05-20 16:15 | USCV_ITS ---
Kaylee Ch Age: 69 Gender: F : 1955 Exam Date: 05/20/2025 18:33 Ordering Phys: Gilles Vila MD Technologist: TARA [place] [facility] [place]: cardiogenic shock, presenting to ER with AMS, complete heart block. Now s/p pacer, patient on ventilator in ICU-9 BP: 127 / 63 HR: 75 Rhythm: Sinus Technical Quality: Adequate MEASUREMENTS (Male / Female) Normal Values 2D ECHO LV Diastolic Diameter PLAX 3.4 cm 4.2 - 5.9 / 3.9 - 5.3 cm IVS Diastolic Thickness 1.4 cm 0.6 - 1.0 / 0.6 - 0.9 cm IVS Systolic Thickness 1.4 cm LVPW Diastolic Thickness 1.1 cm 0.6 - 1.0 / 0.6 - 0.9 cm LVPW Systolic Thickness 1.6 cm LVOT Diameter 1.8 cm LV Ejection Fraction 2D Teich 68.1 % LV Ejection Fraction MOD 4C 54.3 % LV Ejection Fraction MOD 2C 59.4 % LV Ejection Fraction 2C AL 59.6 % LA Diameter 3.7 cm Aorta at Sinotubular Diameter 2.7 cm M-MODE LA Ao Ratio MM 1.4 AV Cusp Separation MM 1.8 cm DOPPLER AV Peak Velocity 130.0 cm/s LVOT Peak Velocity 104.0 cm/s AV Area Cont Eq vti 2.6 cm squared AV Area Cont Eq pk 2.0 cm squared MV Peak Velocity 163.0 cm/s MV Area PHT 2.3 cm squared Mitral E to A Ratio 0.8 TV Peak E Velocity 45.0 cm/s PV Peak Velocity 83.0 cm/s FINDINGS Left Ventricle Left ventricle is normal in size. LV systolic function is normal with EF of 60-65%. No regional wall motion abnormalities are seen. Grade 1 diastolic dysfunction Right Ventricle Normal in size and function Right Atrium Normal in size Left Atrium Dilated IA Septum Grossly normal. Mitral Valve Moderate mitral annular calcification. Mild mitral regurgitation Aortic Valve Structurally normal aortic valve. No significant stenosis. Tricuspid Valve Insufficient TR jet to calculate RVSP Pulmonic Valve Not well visualized Pericardium Normal Aorta Normal in size IVC Appears to be normal CONCLUSIONS LV systolic function is normal with EF of 60-65% Grade 1 diastolic dysfunction Left atrial dilation Mild mitral regurgitation Ranjit Nicolas MD (Electronically Signed) Final Date: 21 May 2025 09:57 S
[2025-05-20] MEDS: piperacillin-tazobactam 3.375 GM in sodium chloride 0.9% (plus) 50 ML IV (17:00)
[2025-05-20] MEDS: midazolam hcl 100 MG/100 ML BAG IV (17:09)
--- NOTE | 2025-05-20 17:16 | XRR_ITS ---
PROCEDURE INFORMATION: Exam: XR Chest Exam date and time: 05/20/2025 6:14 PM Age: 69 years old Clinical indication: Device placement; Ng tube; Additional info: Og tube placement TECHNIQUE: Imaging protocol: Radiologic exam of the chest. Views: 1 view. COMPARISON: CR XR chest 1V portable [id number] 05/19/2025 1:13 PM FINDINGS: Tubes, catheters and devices: Tip of the endotracheal tube projects about 2.1 cm above the jadon. NG tube tip and side hole project over the expected location of the stomach. Lungs: Diminished lung volumes with bronchovascular crowding and atelectasis. Pleural spaces: Unremarkable. No pleural effusion. No pneumothorax. Heart/Mediastinum: Prominent cardiac silhouette, not well evaluated. Bones/joints: Right shoulder arthroplasty. Cervical fusion hardware. Old rib fractures. Soft tissues: Upper abdominal surgical clips. XR/XR chest 1V portable [id number] IMPRESSION: Satisfactorily positioned NG tube.
[2025-05-20] MEDS: fentaNYL 1,000 MCG/100 ML BAG 12.5 MCG IV (18:28)
[2025-05-20] MEDS: fentaNYL 1,000 MCG/100 ML BAG 20 MCG IV (23:02)
[2025-05-21] VITALS (50 sets, daily range): BP systolic 124–160; BP diastolic 62–101; PULSE 55–86; RESP 16–24; TEMP 36.6–37.4; O2SAT 93–98
[2025-05-21] MEDS: fentaNYL 1,000 MCG/100 ML BAG 20 MCG IV ×3 (03:50→14:26)
[2025-05-21] MEDS: midazolam hcl 100 MG/100 ML BAG 6 MG IV (05:10)
[2025-05-21 05:11] LABS: Hematocrit 37.3 % (36-47); Hemoglobin 11.80 g/dL (11.27-16.99); Mean Corpuscular HGB Conc 31.6 g/dL (30-55); Mean Corpuscular Hemoglobin 29.6 pg (27-33); Mean Corpuscular Volume 93.5 fl (85-98); Nucleated Red Blood Cells % 0 %; Platelet Count 226 10^3/cmm (157-399); Red Blood Count 3.99 10^6/uL (3.85-5.65); White Blood Count 9.59 10^3/uL (3.29-11.43)
[2025-05-21 05:28] LABS: Alanine Aminotransferase 56 U/L (0-33); Albumin Level 3.1 g/dL (3.5-5.2); Alkaline Phosphatase 145 U/L (35-105); Anion Gap 17.6 (5-19); Aspartate Amino Transferase 45 U/L (0-32); Blood Urea Nitrogen 11 mg/dL (8-23); Calcium 8.0 mg/dL (8.5-10.5); Carbon Dioxide 23 mmol/L (22-29); Chloride 105 mmol/L (98-107); Globulin 2.7 g/dL (1.3-4.6); Glucose 176 mg/dL (65-115); Osmolality Calculated 298 mOsm/kg (285-295); Potassium 3.6 mmol/L (3.5-5.1); Sodium 142 mmol/L (136-145); Total Protein 5.8 g/dL (6.6-8.7)
[2025-05-21] MEDS: morphine 4 mg/mL SDV 1 mL IVP (06:25)
--- NOTE | 2025-05-21 09:29 | P.PN_ITS ---
Subjective 2 Subjective: Patient significantly this morning in the ICU. She is currently stable. She is still temporarily paced. Per manager business development hospice this morning, Dr. Nicolas has made the determination that patient will need a permanent pacemaker. Arrangements are currently in place to get her transferred to a higher level of care. Vitals/I&O/Wt Last Vital Signs Temp 99.3 F 05/21/25 07:00 Pulse 83 05/21/25 09:00 Resp 16 05/21/25 08:22 BP 147/77 05/21/25 09:00 Pulse Ox 95 05/21/25 08:30 O2 Del Method Mechanical Ventilation 05/21/25 08:19 FiO2 40 05/21/25 08:22 05/20/25 05/21/25 05/21/25 22:59 06:59 14:59 Intake Total 169.606 / 1711.679 1395.150 / 2468.173 770 / 770 Output Total 600 / 600 400 / 1000 Balance -430.394 / 717.023 751.150 / 1468.173 770 / 770 Weight last 48 hrs Weight 89.5 kg Weight 87.997 kg Physical Exam 2 Narrative: General: Sedated. Intubated and mechanically ventilated. No obvious respiratory distress. Chest/Resp: Bilateral equal air entry; chest clinically clear. CVS: Rhythm: Regular heart rate and rhythm. No obvious murmurs appreciated. GI: Soft and non-tender abdomen. No obvious organomegaly. Extremities: Bilateral equal pulses. No obvious pitting pedal edema. Data 05/21/25 10:13 05/21/25 04:44 Micro: Microbiology 05/19/25 13:25 Gram Stain - Final Sputum - Endotracheal Tube Aspirate Sputum Culture - Preliminary A&P Assessment and plan 1. Hyperglycemia due to type 2 diabetes mellitus: 2. Presence of temporary transvenous cardiac pacemaker: 3. Elevated troponin: 4. Acute hyperkalemia: 5. Acute respiratory failure with hypoxia and hypercapnia: 6. On mechanically assisted ventilation: 7. Complete heart block: Plan: Stable, but still requiring temporary pacing. Will require permanent pacemaker. Otherwise, continue ongoing treatment plans. Need to be transferred as well as patient is accepted, and the logistics are completed. PDMP PDMP Reviewed: Not Reviewed Attestations 2 Medical Necessity Statement*: Patient still temporarily placed, will consult hospitalist team. Awaiting further transfer. Coding Level of Care Code Acute Code for Chg Fwd Diagnoses Hyperglycemia due to type 2 diabetes mellitus E11.65 Presence of temporary transvenous cardiac pacemaker Z95.0 Elevated troponin R79.89 Acute hyperkalemia E87.5 Acute respiratory failure with hypoxia and hypercapnia J96.01; J96.02 On mechanically assisted ventilation Z99.11 Complete heart block I44.2
--- NOTE | 2025-05-21 09:47 | P.PN_ITS ---
Subjective 2 Subjective: Kaylee Ch is a 69 year old female with past medical history of chronic back pain issues, diabetes, hypertension, past TIA, history of aphasia, on multiple pain medications at home is brought in by family after she sustained a fall injury. She was brought to the ER and was found to have poor mentation blood pressure was found to be low as well as heart rate. She was found to be in complete heart block cardiology consulted immediately and taken to the [facility] and a transvenous pacing started. is at bedside does not report patient was having any symptoms other than confusion prior to the fall. Currently has a c-collar on her neck awake wanting to be extubated less agitated. Pacing set at 58 but currently sinus rhythm heart rate at 78. 05/21/2025 Tolerating ventilator well but very agitated. On Versed 6 and fentanyl 75. Not paced currently but plan is to be transferred for permanent pacemaker. Review of systems unobtainable patient is on the vent Vitals/I&O/Wt Last Vital Signs Temp 99.3 F 05/21/25 07:00 Pulse 83 05/21/25 09:00 Resp 16 05/21/25 08:22 BP 147/77 05/21/25 09:00 Pulse Ox 95 05/21/25 08:30 O2 Del Method Mechanical Ventilation 05/21/25 08:19 FiO2 40 05/21/25 08:22 05/20/25 05/21/25 05/21/25 22:59 06:59 14:59 Intake Total 169.606 / 3126.488 4264.150 / 2468.173 770 / 770 Output Total 600 / 600 400 / 1000 Balance -430.394 / 717.023 751.150 / 1468.173 770 / 770 Weight last 48 hrs Weight 197 lb 5.019 oz Weight 194 lb Physical Exam 2 Narrative: General: Intubated agitated awake HEENT: EOMI bilaterally c-collar in place Pulmonary: Rhonchorous breath sounds anteriorly Cardiovascular: rrr, nl s1s2, Abdomen: soft, nt, nd, no r/g, Extremities: no edema Neurologic: grossly intact Data 05/21/25 04:44 05/21/25 04:44 Micro: Microbiology 05/19/25 13:25 Gram Stain - Final Sputum - Endotracheal Tube Aspirate Sputum Culture - Preliminary A&P Assessment and plan 1. Acute respiratory failure with hypoxia and hypercapnia: 2. On mechanically assisted ventilation: Plan: # Acute hypoxemic respiratory failure-POA Currently on ventilator tolerating well. Ventilator VC-AC-tidal volumes 400, respiratory rate 16, PEEP of 6 to 40% FiO2. -Continue ipratropium nebulizers Q6, and Mucinex Bronchopulmonary hygiene. Sputum cultures to be sent. Although too soon to suspect aspiration pneumonia but she could have had this prior to admission. Currently does meet criteria for pneumonia. No growth till date on cultures reviewed 05/21/2025 # Aspiration pneumonitis-right middle lobe infiltrates on chest e-ihp-mvxcacg on admission. Continue Zosyn despite cultures. Will order chest x-ray # Acute encephalopathy-most likely related to multiple sedating pain medications appointment including gabapentin and diazepam. CT head results reviewed with no acute findings no skull fracture noted. 05/19/2025. Urine drug screen positive for opiates, benzos. patient has been agitated and recovering from her acute encephalopathy. No focal deficits seen. # Right midlung pneumonia-POA Continue Zosyn follow-up cultures. Chest x-ray reviewed. Shows right lung infiltrate most likely is normal. Although underlying pulmonary auscultation cannot be ruled out. BNP was 146. Echo pending influenza AB RSV and SARS-CoV-2 negative. # Bradycardia with complete heart block status post transvenous pacing-unclear etiology but could be multiple AV april blocking agents taken at home. Patient is on gabapentin fluoxetine amlodipine and diazepam metoprolol Seroquel as well as propranolol 80 mg daily. Currently in sinus rhythm rate 83. Currently temporarily paced transvenous. Cardiology follow-up appreciated. Keep off of all AV april blocking agents for now. May need transfer for permanent pacemaker installation defer this to cardiology # W-lqtyvw-bddh in place until after extubation. May need to rule out ligamental injury postextubation. High risk for intubation # Mildly elevated troponins-type II most likely stress-induced ischemia # Mild transaminitis # Hypoalbuminemia # Morbid obesity # Diabetes-medium dose insulin sliding scale to be initiated. Avoid hypoglycemia keep blood sugars between !40-1 80 # Sedation-avoid propofol and Precedex secondary to bradycardia and complete heart block. Use Versed and fentanyl pushes along with Versed drip as needed. # Nutrition-use dextrose drip if needed to keep blood sugars between 140-180 # CODE STATUS-full ## Goals of care-discussed with at bedside May need a couple days on the to help resolve her pneumonia and acute respiratory failure. The high probability of a clinically significant, sudden or life threatening deterioration of the patient's [Respiratory, cardiac and renal] system(s) required my full and direct attention, intervention and personal management. The critical care time is as shown. This time is in addition to time spent performing any reported procedures but includes the following: [x] Data and vital sign review and interpretation [x] Patient assessment, examination and intervention [x] Documentation [x] Medication orders and management Critical Care Time (min): 35 Telemedicine Consent Patient seen today via Telemedicine by agreement and consent of patient.? Telemedicine technology used during the visit includes audio and, as available, review of images.? The patient encounter is appropriate and reasonable under the circumstances given the patient?s particular presentation at this time.? The patient has been advised of the potential risks and limitations of this mode of treatment (including but not limited to the absence of in-person examination) and has agreed to be treated in a remote fashion in spite of them.? Any, and all, of the patient?s/patient?s family?s questions on this issue have been answered and I have made no promises or guarantees to the patient. PDMP PDMP Reviewed: Not Reviewed Attestations 2 Medical Necessity Statement*: On mechanical ventilation Coding Level of Care Code Critical Care >/= 30 minutes Diagnoses Acute respiratory failure with hypoxia and hypercapnia J96.01; J96.02 On mechanically assisted ventilation Z99.11
[2025-05-21 10:25] LABS: Hematocrit 34.9 % (36-47); Hemoglobin 10.70 g/dL (11.27-16.99); Mean Corpuscular HGB Conc 30.7 g/dL (30-55); Mean Corpuscular Hemoglobin 29.2 pg (27-33); Mean Corpuscular Volume 95.1 fl (85-98); Nucleated Red Blood Cells % 0 %; Platelet Count 193 10^3/cmm (157-399); Red Blood Count 3.67 10^6/uL (3.85-5.65); White Blood Count 8.15 10^3/uL (3.29-11.43)
--- NOTE | 2025-05-21 10:50 | P.PN_ITS ---
<Statement entered by Ranjit Nicolas M.D - 05/23/25 19:46> Patient was cared for in conjunction with an advanced practice practitioner. I reviewed the chart and all pertinent data including imaging, telemetry, and laboratory results. I discussed the patient in detail with the advanced practice practitioner. Please see their note for agreed upon plan of care and results for the patient. Subjective 2 Subjective: She continues to have intermittent third-degree heart block. She will require transfer to [place] for permanent pacemaker placement, will remain intubated for the transfer. Will need to transfer via [facility]. Patient and family have no preference in location. Will try [facility] [place] first. Vitals/I&O/Wt Last Vital Signs Temp 99.3 F 05/21/25 07:00 Pulse 81 05/21/25 10:00 Resp 16 05/21/25 08:22 BP 138/70 05/21/25 10:00 Pulse Ox 94 05/21/25 10:00 O2 Del Method Mechanical Ventilation 05/21/25 08:19 FiO2 40 05/21/25 08:22 05/20/25 05/21/25 05/21/25 22:59 06:59 14:59 Intake Total 169.606 / 2468.173 1151.150 / 2468.173 770 / 770 Output Total 600 / 1000 400 / 1000 Balance -430.394 / 1468.173 751.150 / 1468.173 770 / 770 Weight last 48 hrs Weight 197 lb 5.019 oz Weight 194 lb Physical Exam 2 Const: COMMON NORMALS: no acute distress GENERAL APPEARANCE: cooperative and comfortable ORIENTATION/CONSCIOUSNESS: Yes awake and Yes oriented to person Chest: COMMONS NORMALS: normal inspection of the chest and normal palpation of entire chest wall CHEST: Yes Symmetrical chest wall rise Resp: COMMON NORMALS: normal respiratory effort, No retractions and No use of accessory muscles EFFORT & INSPECTION: Yes symmetric chest movement A USCULTATION: rhonchi right lower Cardio: COMMON NORMALS: regular rate, regular rhythm, S1 normal heart sound present, S2 normal heart sound present, No gallops present (Cardio), No clicks present (Cardio), No murmurs present (Cardio) and No rub (Cardio) RATE: r egular rate RHYTHM: regular rhythm HEART SOUNDS: S1 normal heart sound present and S2 normal heart sound present PERIPHERAL PULSES: radial pulses present Extremity: COMMON NORMALS: no pedal edema Neuro: COMMON NORMALS: moves all extremities SENSORIUM/ORIENTATION: Yes oriented to person Data 05/21/25 10:13 05/21/25 04:44 Micro: Microbiology 05/19/25 13:25 Gram Stain - Final Sputum - Endotracheal Tube Aspirate Sputum Culture - Preliminary A&P Assessment and plan 1. Presence of temporary transvenous cardiac pacemaker: 2. Complete heart block: 3. Elevated troponin: 4. Hypertension: 5. Diabetes mellitus: 6. Hypothyroidism: 7. On mechanically assisted ventilation: 8. Respiratory failure: Plan: She requires transfer for permanent pacemaker placement since it has been over 48 hours and she continues to have episodes of complete heart block. No april coleman or antiarrhythmic has been given. Coronary angiogram on 05/19/25 showed no significant stenosis. Echocardiogram performed yesterday revealed LVEF 60 to 65%, no regional wall motion abnormalities, grade 1 diastolic dysfunction, mild mitral regurgitation. She is lightly sedated, remains intubated. Still nodding yes and no to questions, moving all extremities. Patient has been accepted to [facility] ICU 3E by the body joiner Dr Orr. Awaiting bed assignment. PDMP PDMP Reviewed: Not Reviewed Attestations 2 Medical Necessity Statement*: transfer for pacemaker placement Coding Level of Care Code Acute Code for Chg Fwd Diagnoses Presence of temporary transvenous cardiac pacemaker Z95.0 Complete heart block I44.2 Elevated troponin R79.89 Hypertension I10 Diabetes mellitus E11.9 Hypothyroidism E03.9 On mechanically assisted ventilation Z99.11 Respiratory failure J96.90
--- NOTE | 2025-05-21 14:03 | PC.NURSE ---
report called to laura at [facility] for lópez per [facility] for perment pacer placement , vent in place on sedation for comfort and temporary pacer right groin area , family at bedside
--- NOTE | 2025-05-21 14:35 | PM.TDS ---
Transfer Summary Providers Date of Admission: 05/19/25 13:57 Date of Discharge/Transfer: 05/21/25 Attending Provider at Admission: Gianni Haq MD Attending Provider at Transfer: Gianni Haq MD Consults: Cardiology, interventional Primary Care Provider: Carter Yusuf MD Transfer Plans: Anticipated date of transfer: 05/21/25. Receiving Facility: [facility]. Diagnoses at Discharge Discharge Diagnosis 1. Presence of temporary transvenous cardiac pacemaker: 2. Complete heart block: 3. On mechanically assisted ventilation: 4. Respiratory failure: 5. Elevated troponin: 6. Hypertension: 7. Diabetes mellitus: 8. Hypothyroidism: Reason for Visit Reason for Visit Fall, Fall hit head Brief History: Patient was admitted after she reportedly fell at home, and was found to be in complete heart block. Ongoing in the ER, she was intubated, and mechanically ventilated. Hospital Course Hospital Course Sleeve Machine Tender took patient to the Plant Technical Specialist and put in a temporary pacemaker. Thereafter, she was admitted to the ICU, where she was monitored closely. Other concomitant symptoms were treated empirically. Blood sugar was further controlled with basal-prandial insulin. As at this morning, patient could not be weaned off the temporary pacemaker. Dr. Nicolas, the vegetable picker, then made determination transfer patient to high-level of care for possible permanent pacemaker. Patient therefore transferred as soon as she was accepted. See my discharge instructions from tax accounting manager. Physical Exam Narrative: General: Intubated and mechanically ventilated. Respiration: No obvious no overt distress. CVS: Heart rate paced, and regularly. Others: Other physical findings essentially within normal limits. TS Data Studies Completed and Pending Pending at discharge Category Date Time Status ENGINEERING ILLUSTRATOR request for service Stat Exams 05/19/25 12:44 Taken Blood Culture Stat Lab 05/19/25 14:24 Received CPK [Creatine Phosphokinase] AM LABS Lab 05/22/25 04:00 Ordered Complete Blood Count w/Auto AM LABS Lab 05/22/25 04:00 Ordered Complete Blood Count w/Auto AM LABS Lab 05/23/25 04:00 Ordered Complete Blood Count w/Auto DAILY Lab 05/22/25 10:00 Ordered Comprehensive Metabolic Panel AM LABS Lab 05/22/25 04:00 Ordered Comprehensive Metabolic Panel AM LABS Lab 05/22/25 04:00 Ordered Comprehensive Metabolic Panel AM LABS Lab 05/23/25 04:00 Ordered Magnesium AM LABS Lab 05/22/25 04:00 Ordered Sputum Culture and Gram Stain Routine Lab 05/19/25 13:25 Results Sputum Culture and Gram Stain Routine Lab 05/20/25 14:20 Results Completed Studies During Hospitalization Category Date Time Status CT cervical spin wo con* 16345 Stat Cat Scan 05/20/25 08:[address] head wo con* 87835 Stat Cat Scan 05/20/25 08:00 Completed CXRP [XR chest 1V portable [id number]] Routine Exams 05/20/25 17:16 Completed XR chest 1V portable [id number] Stat Exams 05/19/25 12:21 Completed US echo complete [CV. echo complete* [id number]] Routine Ultrasound 05/20/25 16:15 Completed Laboratory Last Values All labs/abnormalities Cardiac Enzymes 05/21/25 Range/Units 04:44 AST 45 H (0-32) U/L CBC 05/21/25 05/21/25 Range/Units 04:44 10:13 WBC 9.59 8.15 (3.29-11.43) 10^3/uL RBC 3.99 3.67 L (3.85-5.65) 10^6/uL Hgb 11.80 10.70 L (11.27-16.99) g/dL Hct 37.3 34.9 L (36-47) % Plt Count 226 193 (157-399) 10^3/cmm Neut # (Auto) 6.14 5.47 (1.8-7.7) 10^3/uL Lymph # (Auto) 1.9 1.5 (0.8-4.8) 10^3/uL Hancock # (Auto) 1.2 H 0.8 (0.2-0.9) 10^3/uL Eos # (Auto) 0.3 0.3 (0.0-0.8) 10^3/uL Baso # (Auto) 0.0 0.1 (0.0-0.1) 10^3/uL Comprehensive Metabolic Panel 05/21/25 Range/Units 04:44 Sodium 142 (136-145) mmol/L Potassium 3.6 (3.5-5.1) mmol/L Chloride 105 (98-107) mmol/L Carbon Dioxide 23 (22-29) mmol/L BUN 11 (8-23) mg/dL Creatinine 0.7 (0.5-0.9) mg/dL Glucose 176 H (65-115) mg/dL Calcium 8.0 L (8.5-10.5) mg/dL AST 45 H (0-32) U/L ALT 56 H (0-33) U/L Alkaline Phosphatase 145 H (35-105) U/L Total Protein 5.8 L (6.6-8.7) g/dL Albumin 3.1 L (3.5-5.2) g/dL Radiology Impressions Cervical Spine CT 05/20/25 08:00 No acute fracture. Postsurgical and degenerative changes as described. Head CT 05/20/25 08:[address] evidence of acute intracranial hemorrhage, mass or acute infarction. No acute skull fracture. Questionable acute fracture of the left nasal bone, for clinical correlation. Chest X-Ray 05/20/25 17:16 Satisfactorily positioned NG tube. Recent Clincial Data Last Vital Signs Temp 99.3 F 05/21/25 07:00 Pulse 76 05/21/25 13:41 Resp 16 05/21/25 13:42 BP 127/67 05/21/25 13:00 Pulse Ox 94 05/21/25 13:42 O2 Del Method Mechanical Ventilation 05/21/25 13:41 FiO2 40 05/21/25 13:42 Intake & Output/Weight 05/19/25 05/20/25 05/21/25 05/22/25 06:59 06:59 06:59 06:59 Intake Total 1588.530 / 2644.019 1315.173 / 2468.173 857.333 / 857.333 Output Total 1200 / 1200 1000 / 1000 Balance 388.530 / 849.120 0710.173 / 1468.173 857.333 / 857.333 Weight 89.5 kg Vitals Last Vital Signs Temp 99.3 F 05/21/25 07:00 Pulse 76 05/21/25 13:41 Resp 16 05/21/25 13:42 BP 127/67 05/21/25 13:00 Pulse Ox 94 05/21/25 13:42 O2 Del Method Mechanical Ventilation 05/21/25 13:41 FiO2 40 05/21/25 13:42 TS Medications Medications Acetaminophen (Acetaminophen 325 Mg Tablet) 650 mg PO Q6H PRN PRN Reason: MILD PAIN Hydrocodone Bitart/Acetaminophen (Hydrocodone-Acetaminophen 5-325 Mg Tablet) 1 tab PO Q4H PRN PRN Reason: MODERATE PAIN Al Hydrox/Mg Hydrox/Simethicone (Tiyb-Qrl-Pwajoelwe-Chris 30 Ml Udc) 30 ml PO Q15M PRN PRN Reason: INDIGESTION Albuterol/Ipratropium (Ipratropium-Albuterol 3 Ml Neb) 3 ml INHALATION Q6H.RESP [facility] Last Admin: 05/21/25 13:41 Dose: 3 ml Atropine Sulfate (Atropine 1 Mg/Ml Sdv 1 Ml) 0.5 mg IVP PRN PRN PRN Reason: Symptomatic bradycardia Chlorhexidine Gluconate (Chlorhexidine Gluconate 4% Btl 118 Ml) 1 applic TOPICAL PRN PRN PRN Reason: For use with nightly bedbath Enoxaparin Sodium (Enoxaparin 40 Mg/0.4 Ml Syringe) 40 mg SUBCUT Q24H [facility] Last Admin: 05/20/25 15:04 Dose: 40 mg Glucagon (Glucagon 1 Mg/Ml Kit 1 Ml) 1 mg IM ONCE PRN; Protocol PRN Reason: Adult Acute Hypoglycemia Nursing Prot. Guaifenesin (Guaifenesin 600 Mg Tablet) 600 mg PO BID [facility] Last Admin: 05/21/25 04:54 Dose: 600 mg Dopamine HCl/Dextrose (Intropin Drip) 400 mg in 250 mls @ 16.534 mls/hr IV CONT [facility]; Protocol Last Admin: 05/20/25 18:12 Dose: Not Given Midazolam HCl (Versed) 100 mg in 100 mls @ 0 mls/hr IV .Q0M [facility]; Protocol Last Admin: 05/21/25 05:10 Dose: 6 mg/hr, 6 mls/hr Sodium Chloride (Sodium Chloride 0.9%) 1,000 mls @ 100 mls/hr IV .Q10H [facility] Last Admin: 05/21/25 08:03 Dose: 100 mls/hr Dextrose (D5w) 500 mls @ 0 mls/hr IV ONCE PRN; Protocol PRN Reason: Adult Acute Hypoglycemia Prot Dextrose (D10w) 125 mls @ 750 mls/hr IV PRN PRN; Protocol PRN Reason: Adult Acute Hypoglycemia Nursing Protocol Dextrose (D10w) 250 mls @ 1,000 mls/hr IV PRN PRN; Protocol PRN Reason: Adult Acute Hypoglycemia Nursing Protocol Fentanyl (Sublimaze) 1,000 mcg in 100 mls @ 0 mls/hr IV .Q0M [facility]; Protocol Last Admin: 05/21/25 14:26 Dose: 200 mcg/hr, 20 mls/hr Insulin Human Lispro (Insulin Lispro 100 Unit/1 Ml) 0 unit SUBCUT Q6H [facility]; Protocol Last Admin: 05/21/25 08:36 Dose: Not Given Magnesium Hydroxide (Magnesium Hydroxide 30 Ml Udc) 30 ml PO DAILY PRN PRN Reason: CONSTIPATION Morphine Sulfate (Morphine 4 Mg/Ml Sdv 1 Ml) 4 mg IVP Q4H PRN PRN Reason: SEVERE PAIN Last Admin: 05/21/25 06:25 Dose: 4 mg Naloxone HCl (Naloxone 0.4 Mg/Ml Sdv) 0.1 mg IVP Q2M PRN PRN Reason: RESPIRATORY RATE < 8/MIN Nitroglycerin (Nitroglycerin 0.4 Mg Sublingual Tablet) 0.4 mg SUBLINGUAL Q5M PRN PRN Reason: CHEST PAIN Ondansetron HCl (Ondansetron 2 Mg/Ml Sdv 2 Ml) 4 mg IVP Q6H PRN PRN Reason: NAUSEA AND VOMITING Discontinued Medications Atropine Sulfate (Atropine 0.1 Mg/Ml Syr 10 Ml) 1 mg IVP ONCE ONE Stop: 05/19/25 12:23 Last Admin: 05/19/25 12:28 Dose: 1 mg Etomidate (Etomidate 2 Mg/Ml Inj Sdv 10 Ml) 20 mg IVP NOW ONE Stop: 05/19/25 12:46 Last Admin: 05/19/25 12:53 Dose: 20 mg Fentanyl (Fentanyl 50 Mcg/Ml Inj 2ml) Confirm Administered Dose 100 mcg .ROUTE .STK-MED ONE Stop: 05/19/25 12:53 Heparin Sodium (Porcine) (Heparin 5,000 Unit/Ml Inj 1 Ml) Confirm Administered Dose 10,000 unit .ROUTE .STK-MED ONE Stop: 05/19/25 13:01 Lidocaine HCl (Xylocaine) Confirm Administered Dose 20 mls @ as directed .ROUTE .STK-MED ONE Stop: 05/19/25 12:50 Propofol (Diprivan) 1,000 mg in 100 mls @ 0 mls/hr IV .Q0M [facility]ACQU[facility]INE; Protocol Last Titration: 05/20/25 17:10 Dose: Infused Propofol (Diprivan) Confirm Administered Dose 1,000 mg in 100 mls @ as directed .ROUTE .STK-MED ONE Stop: 05/19/25 12:54 Sodium Chloride (Sodium Chloride 0.9%) 500 mls @ 999 mls/hr IV .Q31M STA Stop: 05/19/25 13:44 Last Admin: 05/19/25 14:54 Dose: Not Given Linezolid (Zyvox Premix) 600 mg in 300 mls @ 300 mls/hr IV ONCE ONE; Protocol Stop: 05/19/25 14:13 Last Infusion: 05/19/25 19:00 Dose: Infused Sodium Chloride (Sodium Chloride 0.9%) Confirm Administered Dose 1,000 mls @ as directed .ROUTE .STK-MED ONE Stop: 05/19/25 13:31 Fentanyl (Sublimaze) 1,000 mcg in 100 mls @ 0 mls/hr IV .Q0M [facility]INE; Protocol Last Admin: 05/21/25 03:50 Dose: 200 mcg/hr, 20 mls/hr Piperacillin Sod/Tazobactam (Sod 3.375 gm/ Sodium Chloride) 50 mls @ 100 mls/hr IV CARD GRINDER ONE; Protocol Stop: 05/20/25 16:35 Last Infusion: 05/20/25 19:38 Dose: Infused Insulin Human Regular (Insulin Regular-Human 100 Units/1 Ml) 10 unit IVP ONCE ONE Stop: 05/19/25 14:01 Last Admin: 05/19/25 14:55 Dose: Not Given Ketamine HCl (Ketamine 100 Mg/Ml Inj 5 Ml) 100 mg IVP ONCE ONE Stop: 05/19/25 12:38 Last Admin: 05/19/25 14:54 Dose: Not Given Meropenem (Meropenem 500 Mg Sdv) 500 mg IVP ONCE ONE; Protocol Stop: 05/19/25 13:15 Last Admin: 05/19/25 14:43 Dose: 500 mg Midazolam HCl (Midazolam 1 Mg/Ml Inj 2 Ml) Confirm Administered Dose 2 mg .ROUTE .STK-MED ONE Stop: 05/19/25 12:54 Nitroglycerin (Nitroglycerin 5 Mg/Ml Sdv 10 Ml) Confirm Administered Dose 50 mg .ROUTE .STK-MED ONE Stop: 05/19/25 13:02 Succinylcholine Chloride (Succinylcholine 20 Mg/Ml Sdv 10ml) 100 mg IVP NOW ONE Stop: 05/19/25 12:45 Last Admin: 05/19/25 12:54 Dose: 100 mg Vecuronium [place] (Vecuronium 10 Mg Sdv) 10 mg IVP ONCE ONE Stop: 05/19/25 13:07 Last Admin: 05/19/25 13:08 Dose: 10 mg Allergies azithromycin (From Zithromax) Allergy (Verified 05/14/25 12:41) rash cetirizine (From Zyrtec) Allergy (Verified 05/14/25 12:41) rash lisinopril (From Zestril) Allergy (Verified 05/14/25 12:41) ALGY-Swell Lip/Tongue/Throat metformin Adverse Reaction (Intermediate, Verified 05/14/25 12:41) diarrhea topiramate (From Topamax) Adverse Reaction (Intermediate, Verified 05/14/25 12:41) diarrhea Home Medications ascorbic acid 7.5 mg-vit E 7.5 unit-biotin 1,250 mcg chewable tablet (Hair,Skin,Nails with Biotin) 1 tab PO DAILY@1000 11/12/20 [History Confirmed 05/19/25] multivitamin 1 tab PO DAILY@1000 11/12/20 [History Confirmed 05/19/25] insulin syringe-needle U-100 1 mL 28 gauge x 1/2 (BD Insulin Syringe) #100 ea 09/06/22 [Rx Confirmed 05/19/25] cyanocobalamin (vitamin B-12) 1,000 mcg tablet (Vitamin B-12) 1,000 mcg PO DAILY 01/03/23 [History Confirmed 05/19/25] Diabetic shoes #1 ea 04/11/23 [Rx Confirmed 05/19/25] blood-glucose meter #1 ea 06/12/23 [Rx Confirmed 05/19/25] blood sugar diagnostic (Blood Glucose Test strips) #200 ea 06/15/23 [Rx Confirmed 05/19/25] blood-glucose meter (Accu-Chek Guide Glucose Meter) #1 ea 06/27/23 [Rx Confirmed 05/19/25] blood sugar diagnostic (Accu-Chek Guide test strips) #100 ea 07/26/23 [Rx Confirmed 05/19/25] gabapentin 100 mg capsule 100 mg PO BID 07/18/24 [History Confirmed 05/19/25] potassium chloride 20 mEq tablet,extended release 20 meq PO .DAILY@10AM 07/18/24 [History Confirmed 05/19/25] Diabetic Shoes with Inserts #1 ea 12/11/24 [Rx Confirmed 05/19/25] lamotrigine 200 mg tablet 200 mg PO BID 12/30/24 [History Confirmed 05/19/25] cam boot to right #1 ea 01/05/25 [Rx Confirmed 05/19/25] duloxetine 60 mg capsule,delayed release 120 mg PO QAM 01/26/25 [History Confirmed 05/19/25] fluoxetine 20 mg capsule 20 mg PO QAM 01/26/25 [History Confirmed 05/19/25] levothyroxine 200 mcg tablet 200 mcg PO .DAILY@10AM 01/26/25 [History Confirmed 05/19/25] omega 1-qrp-ndu-fish oil 1,200 mg (144 mg-216 mg) capsule (Fish Oil) 1 cap PO DAILY 01/30/25 [History Confirmed 05/19/25] amlodipine 10 mg tablet 10 mg PO DAILY #30 tabs 02/06/25 [Rx Confirmed 05/19/25] aspirin 81 mg tablet,delayed release 81 mg PO DAILY #30 tabs 02/06/25 [Rx Confirmed 05/19/25] glimepiride 4 mg tablet 2 mg (1/2 x 4 mg) PO BID #30 tabs 02/06/25 [Rx Confirmed 05/19/25] olanzapine 5 mg tablet 2.5 mg (1/2 x 5 mg) PO BID #30 tabs 02/06/25 [Rx Confirmed 05/19/25] sennosides 8.6 mg-docusate sodium 50 mg tablet (Stool Softener-Laxative) 1 tab PO BID PRN Constipation #30 tabs 02/06/25 [Rx Confirmed 05/19/25] diazepam 10 mg tablet 10 mg PO BID PRN Anxiety 04/10/25 [History Confirmed 05/19/25] hydrocodone 5 mg-acetaminophen 325 mg tablet 1 tab PO Q6H PRN pain #14 tabs 04/24/25 [Rx Confirmed 05/19/25] albuterol sulfate 90 mcg/actuation aerosol inhaler 2 inh inhalation Q4H PRN shortness of breath or wheezing #6.7 grams 04/27/25 [Rx Confirmed 05/19/25] insulin syringe-needle U-100 1 mL 31 gauge x 5/16 (TRUEplus Insulin) #100 ea 05/08/25 [Rx Confirmed 05/19/25] lancets (Accu-Chek Softclix Lancets) #200 ea 05/08/25 [Rx Confirmed 05/19/25] semaglutide 0.25 mg or 0.5 mg (2 mg/3 mL) subcutaneous pen injector (Ozempic) 0.5 mg (0.736 mL) SUBCUT .weekly #3 mL 05/08/25 [Rx Confirmed 05/19/25] amiodarone 200 mg tablet (Pacerone) 200 mg PO DAILY 05/19/25 [History Confirmed 05/19/25] atorvastatin 20 mg tablet 20 mg PO .@10AM 05/19/25 [History Confirmed 05/19/25] insulin degludec 100 unit/mL (3 mL) subcutaneous pen (Tresiba FlexTouch U-100 insulin) 20 unit SUBCUT BEDTIME 05/19/25 [History Confirmed 05/19/25] metoprolol succinate 25 mg tablet,extended release 24 hr 25 mg PO DAILY 05/19/25 [History Confirmed 05/19/25] propranolol 80 mg capsule,24 hr,extended release 80 mg PO BID 05/19/25 [History Confirmed 05/19/25] quetiapine 100 mg tablet 100 mg PO BEDTIME 05/19/25 [History Confirmed 05/19/25] Discharge Plan Discharge Patient Disposition: er Intermediate Care Fac Condition: Critical Prescriptions: No Action (DME) cam boot to right See Rx Instructions .Route .MEDSUPPLY Qty: 1 0RF Rx Instructions: As directed lamotrigine 200 mg tablet 200 mg PO BID (DME) Diabetic shoes See Rx Instructions .Route .MEDSUPPLY Qty: 1 0RF Rx Instructions: Heel lift and insoles. Last HgbA1C 5.7 on 02/01. (DME) Diabetic Shoes with Inserts See Rx Instructions .Route .MEDSUPPLY Qty: 1 0RF Rx Instructions: As directed (DME) insulin syringe-needle U-100 [BD Insulin Syringe] 1 mL 28 gauge x 1/2 syringe See Rx Instructions .Route Qty: 100 11RF Rx Instructions: As directed (DME) blood-glucose meter Misc See Rx Instructions .MEDSUPPLY Qty: 1 0RF Rx Instructions: Check TID (DME) Blood Glucose Test Strip See Rx Instructions .MEDSUPPLY Qty: 200 12RF Rx Instructions: Use with glucometer to check blood sugar three times a day (DME) blood-glucose meter [Accu-Chek Guide Glucose Meter] Misc See Rx Instructions .Route Qty: 1 0RF Rx Instructions: As directed (DME) Accu-Chek Guide test strips Strip See Rx Instructions .Route Qty: 100 11RF Rx Instructions: check TID (DME) insulin syringe-needle U-100 [TRUEplus Insulin] 1 mL 31 gauge x 5/16 syringe See Rx Instructions .ROUTE .COMPLEX Qty: 100 3RF Dose Instruction: TO USE WITH LANTUS Rx Instructions: TO USE WITH LANTUS (DME) lancets [Accu-Chek Softclix Lancets] Misc See Rx Instructions .Route Qty: 200 11RF Rx Instructions: use as directed three times a day Ozempic 0.25 mg or 0.5 mg (2 mg/3 mL) pen injector 0.5 mg SUBCUT .weekly Qty: 3 11RF Rx Instructions: Sunday multivitamin Tablet 1 tab PO DAILY@1000 Hair, Skin, Nails with Biotin 7.5-7.5-1,250 mg-unit-mcg Tablet,Chewable 1 tab PO DAILY@1000 cyanocobalamin (vitamin B-12) [Vitamin B-12] 1,000 mcg Tablet 1,000 mcg PO DAILY diazepam 10 mg tablet 10 mg PO BID PRN (Reason: Anxiety) hydrocodone-acetaminophen 5-325 mg tablet 1 tab PO Q6H PRN (Reason: pain) Qty: 14 0RF atorvastatin 20 mg tablet 20 mg PO .@10AM propranolol 80 mg capsule,extended release 24 hr 80 mg PO BID metoprolol succinate 25 mg tablet extended release 24 hr 25 mg PO DAILY insulin degludec [Tresiba FlexTouch U-100] 100 unit/mL (3 mL) insulin pen 20 unit SUBCUT BEDTIME amiodarone [Pacerone] 200 mg tablet 200 mg PO DAILY quetiapine 100 mg tablet 100 mg PO BEDTIME gabapentin 100 mg capsule 100 mg PO BID potassium chloride 20 mEq tablet extended release 20 meq PO .DAILY@10AM fluoxetine 20 mg capsule 20 mg PO QAM duloxetine 60 mg capsule,delayed release(DR/EC) 120 mg PO QAM levothyroxine 200 mcg tablet 200 mcg PO .DAILY@10AM omega 0-zga-ley-fish oil [Fish Oil] 1,200 (144-216) mg Capsule 1 cap PO DAILY aspirin 81 mg Tablet,Delayed Release (Dr/Ec) 81 mg PO DAILY Qty: 30 0RF glimepiride 4 mg tablet 2 mg PO BID Qty: 30 0RF sennosides-docusate sodium [Stool Softener-Laxative] 8.6-50 mg Tablet 1 tab PO BID PRN (Reason: Constipation) Qty: 30 0RF olanzapine 5 mg Tablet 2.5 mg PO BID Qty: 30 0RF amlodipine 10 mg tablet 10 mg PO DAILY Qty: 30 0RF albuterol sulfate 90 mcg/actuation HFA aerosol inhaler 2 inh inhalation Q4H PRN (Reason: shortness of breath or wheezing) Qty: 6.7 0RF Rx Instructions: Please provide patient with a spacer Discharge Order = DC NOW: Discharge Order (Routine); Ordered 05/21/25 Ordered By: Gianni Haq Referrals: Carter Yusuf MD [Primary Care Provider, [facility]] Patient Instructions: Altered Mental Status (ED), Opioid Safety, Patient Portal & Brianna Instructions Transfer Attestations Time Spent in Transfer Care: greater than 30 min Quality Metrics Clinical Quality Measures [ No reported AMI, CVA or VTE this stay] Coding Level of Care Code Acute Code for Chg Fwd Diagnoses Presence of temporary transvenous cardiac pacemaker Z95.0 Complete heart block I44.2 On mechanically assisted ventilation Z99.11 Respiratory failure J96.90 Elevated troponin R79.89 Hypertension I10 Diabetes mellitus E11.9 Hypothyroidism E03.9
== END 2025-05-21 14:53 | disposition short-term general hospital (02) | DRG 286 ==
LOC: ER 13:57 → ICU 13:57
PROVIDERS: Internal Medicine; Admitting Provider Family Medicine; Emergency Provider Emergency Medicine; PCP Family Medicine; Visit Provider Family Medicine
PROC: 0BH17EZ Insertion of Endotracheal Airway into Trachea, Via Natural or Artificial Opening (ICD-10-PCS; principal; 2025-05-19 13:30)
DX: I44.2 Atrioventricular block, complete (principal); G93.41 Metabolic encephalopathy; J96.02 Acute respiratory failure with hypercapnia; J96.01 Acute respiratory failure with hypoxia; J69.0 Pneumonitis due to inhalation of food and vomit; E87.29 Other acidosis; I10 Essential (primary) hypertension; F43.10 Post-traumatic stress disorder, unspecified; F31.9 Bipolar disorder, unspecified; E11.65 Type 2 diabetes mellitus with hyperglycemia; E87.5 Hyperkalemia; E11.42 Type 2 diabetes mellitus with diabetic polyneuropathy; E03.9 Hypothyroidism, unspecified; R74.01 Elevation of levels of liver transaminase levels; E78.5 Hyperlipidemia, unspecified; R79.89 Other specified abnormal findings of blood chemistry; I95.9 Hypotension, unspecified; E66.01 Morbid (severe) obesity due to excess calories; E88.09 Other disorders of plasma-protein metabolism, not elsewhere classified; Z86.73 Personal history of transient ischemic attack (TIA), and cerebral infarction without residual deficits; Z91.81 History of falling; Z89.412 Acquired absence of left great toe; Z79.4 Long term (current) use of insulin; Z79.890 Hormone replacement therapy; Z79.82 Long term (current) use of aspirin; Z79.899 Other long term (current) drug therapy; Z88.1 Allergy status to other antibiotic agents; Z88.8 Allergy status to other drugs, medicaments and biological substances; Z90.49 Acquired absence of other specified parts of digestive tract; Z90.710 Acquired absence of both cervix and uterus; Z68.31 Body mass index [BMI] 31.0-31.9, adult
CPT/HCPCS: 33210; 36415; 36416; 36600; 70450; 71045; 72125; 80051; 80053; 80306; 81001; 82330; 82550; 82803; 82805; 82962; 83605; 83735; 83880; 84443; 84484; 85025; 85610; 85730; 86140; 87040; 87070; 87077; 87186; 87205; 87637; 93005; 93306; 93458; 94002; 94003; 94640; 94664; 94799; 96365; 96367; 96372; 96374; 96375; 99284; 99291; 99292; C1760; C1769; C1779; C1887; C1894; G0269; J0330; J0461; J1265; J1644; J1650; J1815; J2020; J2185; J2250; J2270; J2543; J2704; J3010; J3490; J7030; J9999; Q9967

== ENCOUNTER → 2025-06-08 10:39 | Outpatient (BNVA) | payer MEDICARE, OTHER, MEDICAID, SELFPAY | PROVIDERS: PCP Family Medicine; Visit Provider Podiatrist Foot & Ankle Surgery | DX: E11.42 Type 2 diabetes mellitus with diabetic polyneuropathy (principal); Z89.412 Acquired absence of left great toe; Z79.4 Long term (current) use of insulin; Z79.85 Long-term (current) use of injectable non-insulin antidiabetic drugs | CPT/HCPCS: 99214 ==